=== PATIENT | female | born 1975 | race Caucasian/White ===

== ENCOUNTER 2023-02-11 11:32 | Observation (INO) | payer MEDICAID, SELFPAY ==
[2023-02-11] VITALS (21 sets, daily range): BP systolic 159–188; BP diastolic 85–101; PULSE 73–99; RESP 16–20; TEMP 36.1–36.8; O2SAT 96–100; BMI 42.1; BMI 49.4
--- NOTE | 2023-02-11 14:30 | ED.GENADULT ---
HPI - General Adult General Date Seen: 02/11/23 Chief complaint: Unspecified Complaint, Adult Stated complaint: Swollen feet, kidney issues Time Seen by Provider: 02/11/23 13:54 Source: patient and broomcorn press feeder Mode of arrival: ambulatory Limitations: language barrier History of Present Illness HPI narrative: Patient is a 47-year-old woman, Omani speaking, here for evaluation of poor kidney function. She has been seeing a doctor with [facility] for the past 1-2 months. She was started on medicine for blood pressure including losartan and amlodipine. She has been having some swelling in her feet and fatigue. She says she was called on after having labs checked a couple of weeks ago and told that she should go to an ER because her kidneys were not doing well and she needed to see a kidney specialist. Apparently she came in on Friday after having to work and Friday, she checked in in the ER but when she found out we did not have kidney specialists here she left. She came back today after somewhat explained to her how the ER process generally works. She also notes a red area on her left eye starting Friday or Friday. No pain or vision complaints. She denies a history of diabetes. She does not smoke. Does not sound like she had much medical care prior to the past couple of months. History is obtained with the assistance of an broomcorn press feeder. Related Data Home Medications Medication Instructions Recorded Confirmed amlodipine 10 mg tablet 10 mg PO DAILY 02/11/23 02/11/23 losartan 50 mg tablet 50 mg PO DAILY 02/11/23 02/11/23 Allergies Allergy/AdvReac Type Severity Reaction Status Date / Time No Known Drug Allergies Allergy Verified 02/11/23 12:01 Review of Systems Status of ROS: Reports: 10 or more systems reviewed and unremarkable except as noted in History and below PFSH PFS Social History What is your current living situation?: I presently have a place to live Problems where you live: no known problems Problems where you live details: none In the past 12 months, utilities in danger of being shut off: yes In past 12 months, lack of transportation kept you from medical appts, meetings, work, or getting things needed for daily living: no In the past 12 mos, have been you worried that your food would run out before you had money to buy more?: sometimes true In the past 12 mos, the food you bought just didn't last and you didn't have money to buy more?: sometimes true Highest level of school completed/degree received: 9th grade Smoking Status: Never smoker Do you use any of these nicotine containing products: None How often do you have a drink containing alcohol: never AUDIT-C Alcohol total score: 0 Non-prescribed substance use: denies use Caffeine: Yes (coffee) How often does anyone, including family, friends and others, physically hurt you: never How often does anyone, including family, friends and others, insult or talk down to you: never How often does anyone, including family, friends and others, threaten you with harm: never How often does anyone, including family, friends and others, scream or curse at you: never service: No Exam Narrative: Exam Narrative: Vital signs as noted above. In general, an alert, well-appearing patient. Head: Normocephalic, atraumatic. Eyes: Pupils are equal reactive. Extraocular movements are full. Subconjunctival hemorrhage noted on the left. ENT: Mucous membranes are moist. Neck: Supple without lymphadenopathy. Heart: Regular rate and rhythm. No murmur or rub. Lungs: Clear bilaterally. No increased work of breathing, crackles or wheezes. Abdomen: Soft and nontender. No organomegaly. Extremities: Well perfused. Trace edema in both shins and feet. No erythema or calf tenderness. Pulses intact. Neurologic: Patient is alert and oriented to person and place. Speech is fluent. Face is symmetric. Moves all extremities equally. Affect: Normal. Skin: Warm and dry. Well perfused. Const: Vital Signs, click to edit/add: Vital Signs - 24 hr 02/11/23 11:49 02/11/23 14:45 02/11/23 15:00 Temperature 97.4 F L Pulse Rate 73 76 Pulse Rate [Pulse Oximeter] 99 Respiratory Rate 18 Blood Pressure Blood Pressure [Ri ght Upper Arm] 166/94 H Pulse Oximetry 98 98 99 Oxygen Delivery Me thod Room Air 02/11/23 15:02 02/11/23 15:15 02/11/23 15:30 Temperature Pulse Rate 84 76 84 Pulse Rate [Pulse Oximeter] Respiratory Rate Blood Pressure 159/88 H Blood Pressure [Ri ght Upper Arm] Pulse Oximetry 98 97 96 Oxygen Delivery Me thod 02/11/23 15:31 02/11/23 15:45 02/11/23 16:20 Temperature Pulse Rate 86 81 89 Pulse Rate [Pulse Oximeter] Respiratory Rate Blood Pressure 165/98 H Blood Pressure [Ri ght Upper Arm] Pulse Oximetry 99 99 99 Oxygen Delivery Me thod 02/11/23 16:30 02/11/23 16:33 02/11/23 16:34 Temperature Pulse Rate 84 85 80 Pulse Rate [Pulse Oximeter] Respiratory Rate Blood Pressure 161/101 H Blood Pressure [Ri ght Upper Arm] Pulse Oximetry 99 99 99 Oxygen Delivery Me thod 02/11/23 16:45 02/11/23 17:00 02/11/23 17:02 Temperature Pulse Rate 82 89 87 Pulse Rate [Pulse Oximeter] Respiratory Rate Blood Pressure 167/85 H Blood Pressure [Ri ght Upper Arm] Pulse Oximetry 99 99 99 Oxygen Delivery Me thod 02/11/23 17:15 Temperature Pulse Rate 79 Pulse Rate [Pulse Oximeter] Respiratory Rate Blood Pressure Blood Pressure [Ri ght Upper Arm] Pulse Oximetry 98 Oxygen Delivery Me thod Documenting provider has reviewed patient's vital signs: yes Course Course ED Course: Patient presents with a history of renal insufficiency, told by primary care to go to ER so that she could see Nephrology. We of course do not have Nephrology here, I did recheck labs today, potassium came back at 5.2, creatinine is now 4, it was 3.7 on February 04. She is mildly acidotic with the CO2 of 16. BUN is also elevated at 55. BNP is unremarkable, glucose is 83. She is somewhat hypertensive on arrival with a blood pressure of 166/94, this was 161/101 when repeated, so does appear that her blood pressure is not well managed. I was able to talk with Dr. Glover, who was on-call for Nephrology at [facility]. He acknowledges that she has significant kidney disease, typically would arrange for outpatient follow-up but given that she does not have insurance and is likely undocumented, outpatient follow-up is not going to be an option. He therefore recommended that she be transferred to the [facility] system so that she can be seen by Nephrology for further testing and therapeutic recommendations. She is on the wait list at [facility], plan will be admission here overnight reassess tomorrow in terms of ability to transfer and results of further testing to include urine protein and creatinine, etcetera. Vital Signs Vital signs: Initial Vital Signs Temperature 97.4 F L 02/11/23 11:49 Temperature Source Temporal Artery Scan 02/11/23 11:49 Pulse Rate 99 02/11/23 11:49 Respiratory Rate 18 02/11/23 11:49 Blood Pressure 166/94 H 02/11/23 11:49 Blood Pressure Mean 118 H 02/11/23 11:49 Blood Pressure Position Sitting 02/11/23 11:49 Pulse Oximetry 98 02/11/23 11:49 Oxygen Delivery Method Room Air 02/11/23 11:49 Vital Signs Temperature 97.4 F L 02/11/23 11:49 Pulse Rate 99 02/11/23 11:49 Respiratory Rate 18 02/11/23 11:49 Blood Pressure 166/94 H 02/11/23 11:49 Pulse Oximetry 98 02/11/23 11:49 Oxygen Delivery Method Room Air 02/11/23 11:49 Temperature 97 F L 02/11/23 18:03 Pulse Rate 88 02/11/23 18:03 Respiratory Rate 18 02/11/23 18:03 Blood Pressure 188/96 H 02/11/23 18:03 Pulse Oximetry 99 02/11/23 18:03 Oxygen Delivery Method Room Air 02/11/23 18:03 Medications Administered Medications: Discontinued Medications Generic Name Dose Route Start Last Admin Trade Name Freq PRN Reason Stop Dose Admin Lactated Ringer's 1,000 mls @ 500 mls/hr 02/11/23 15:32 02/11/23 16:21 Lactated Ringers 1000 Ml IV 02/11/23 17:31 500 mls/hr .Q2H GARFIELD Administration Medical Decision Making Lab Data Labs: Lab Results 02/11/23 02/11/23 Range/Units 13:59 14:44 WBC 8.46 (4.50-11.00) K/uL RBC 3.20 L (4.00-5.20) m/uL Hgb 9.9 L (12.0-16.0) gm/dL Hct 28.8 L (33.0-51.0) % MCV 90 (80-100) fL MCH 31 (26-34) pg MCHC 34 (32-36) gm/dL RDW Coeff of William 12.9 (11.5-15.5) % Plt Count 195 (140-440) K/uL Neut % (Auto) 73.5 H (42.0-72.0) % Lymph % (Auto) 17.6 L (20-44) % [place] % (Auto) 6.1 (0.0-11.0) % Eos % (Auto) 2.1 (0.0-7.0) % Baso % (Auto) 0.2 (0.0-3.0) % Neut # (Auto) 6.20 (1.7-7.0) K/uL Lymph # (Auto) 1.50 (0.90-2.90) K/uL [place] # (Auto) 0.50 (0.00-0.90) K/UL Eos # (Auto) 0.18 (0.00-0.50) K/uL Baso # (Auto) 0.02 (0.00-0.30) K/uL Abs Immat Gran (auto) 0.04 (0.00-0.30) K/uL Imm/Tot Granulo (auto) 0.5 % Sodium 138 (135-149) mmol/L Potassium 5.2 H (3.6-5.1) mmol/L Chloride 112 (96-114) mmol/L Carbon Dioxide 16 L (20-32) mmol/L Anion Gap 10 (7-15) mEq/L BUN 55 H (5-24) mg/dL Creatinine 4.0 H (0.5-1.5) mg/dL Estimated Creat Clear 13.60 Estimated GFR 13 ml/min Glucose 83 (60-115) mg/dL Calcium 8.6 (8.4-10.6) mg/dL Magnesium 2.1 (1.5-2.6) mg/dL Total Bilirubin 0.2 (0.1-1.5) mg/dL Direct Bilirubin 0.0 (0.0-0.5) mg/dL AST 17 (12-35) U/L ALT 22 (4-35) U/L Alkaline Phosphatase 89 (40-150) U/L C-Reactive Protein 0.8 (0.5-1.0) mg/dL NT-Pro-B Natriuret Pep 415 pg/mL Total Protein 7.3 (6.0-8.3) g/dL Albumin 4.1 (3.3-5.0) g/dL Urine Color Yellow (Yellow) Urine Appearance Slightly Cloudy A (Clear) Urine pH 5.5 (5.0-8.5) Ur Specific [place] 1.020 (1.000-1.030) Urine Protein 3+ A (Negative) Urine Glucose (UA) Negative (Negative) Urine Ketones Negative (Negative) Urine Blood 1+ A (Negative) Urine Nitrite Negative (Negative) Urine Bilirubin Negative (Negative) Urine Urobilinogen 0.2 (0.2-1.0) Ur Leukocyte Esterase Negative (Negative) Urine RBC 0-2 (0-2) Urine WBC 0-2 (0-5) Urine WBC Clumps None (None) Ur Squamous Epith Cells Few (None-Few) Urine Bacteria None (None)
[2023-02-11 14:52] LABS: Basophils Absolute Auto 0.02 K/uL (0.00-0.30); Basophils Percent Auto 0.2 % (0.0-3.0); Eosinophils Absolute Auto 0.18 K/uL (0.00-0.50); Eosinophils Percent Auto 2.1 % (0.0-7.0); Hematocrit 28.8 % (33.0-51.0); Hemoglobin* 9.9 gm/dL (12.0-16.0); Immature Granulocytes Abs Auto 0.04 K/uL (0.00-0.30); Immature Granulocytes Pct Auto 0.5 %; Lymphocytes Percent Auto 17.6 % (20-44); Mean Corpuscular HGB Conc 34 gm/dL (32-36); Mean Corpuscular Hemoglobin 31 pg (26-34); Mean Corpuscular Volume 90 fL (80-100); Monocytes Percent Auto 6.1 % (0.0-11.0); Neutrophils Percent Auto 73.5 % (42.0-72.0); Platelet Count* 195 K/uL (140-440); RDW Coefficient of Variation % 12.9 % (11.5-15.5); White Blood Count* 8.46 K/uL (4.50-11.00)
[2023-02-11 15:00] LABS: Appearance Urine Slightly Cloudy (Clear); Bilirubin Urine Negative (Negative); Blood Urine 1+ (Negative); Color Urine Yellow (Yellow); Glucose Urine Negative (Negative); Ketones Urine Negative (Negative); Leukocyte Esterase Urine Negative (Negative); Nitrite Urine Negative (Negative); Protein Urine 3+ (Negative); Urobilinogen Urine 0.2 (0.2-1.0); pH Urine 5.5 (5.0-8.5)
[2023-02-11 15:03] LABS: Albumin* 4.1 g/dL (3.3-5.0); Chloride* 112 mmol/L (96-114)
[2023-02-11 15:04] LABS: Potassium* 5.2 mmol/L (3.6-5.1); Sodium* 138 mmol/L (135-149)
[2023-02-11 15:06] LABS: Estimated Glomerular Filt Rate 13 ml/min
[2023-02-11 15:07] LABS: Alanine Aminotransferase* 22 U/L (4-35); Alkaline Phosphatase* 89 U/L (40-150); Anion Gap 10 mEq/L (7-15); Aspartate Amino Transferase* 17 U/L (12-35); Bilirubin Total* 0.2 mg/dL (0.1-1.5); Blood Urea Nitrogen* 55 mg/dL (5-24); Calcium* 8.6 mg/dL (8.4-10.6); Carbon Dioxide* 16 mmol/L (20-32); Glucose* 83 mg/dL (60-115); Magnesium* 2.1 mg/dL (1.5-2.6); Total Protein* 7.3 g/dL (6.0-8.3)
[2023-02-11 15:09] LABS: C Reactive Protein* 0.8 mg/dL (0.5-1.0)
[2023-02-11 15:12] LABS: RBC Urine 0-2 (0-2); Squamous Epithelial Cell Urine Few (None-Few); WBC Urine 0-2 (0-5)
[2023-02-11 15:26] LABS: NT Pro B Type NatriureticPept* 415 pg/mL
[2023-02-11 15:28] LABS: Slide Review Reflex No
[2023-02-11] MEDS: LACTATED RINGERS 1000 ML 1,000 ML 500 ML IV (16:21)
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
--- NOTE | 2023-02-11 17:35 | ED.NURSE ---
Report called to M/S RN.
--- NOTE | 2023-02-11 19:13 | PC.NURSE ---
End of shift [id number]: Patient admitted to the unit at 1745 via wheelchair. Patient ambulatory, afebrile and VSS. Independent in her room. Denies having any pain or nausea currently. Patient is Swedish speaking but is able to comprehend basic Thai. Machine [employer]acker iPad utilized for admission. Patient was offered turkey sandwich and vegetable soup for dinner. PIV in left FA C/D/I and SL. Trace edema to right ankle and 1+ to left ankle. HRR and LS clear.
--- NOTE | 2023-02-11 19:34 | P.IMHP_ITS ---
Hospitalist- H&P: HPI History of Present Illness Date Seen: 02/11/23 Chief complaint: Swollen feet, kidney issues Narrative: Leny Torres is a 47 year old female past medical history significant for hypertension otherwise no previous diagnosed comorbidities, most recently followed by [facility], is admitted to the medical floor under observation for acute worsening renal failure. She is seen at bedside with assist of virtual cloth finishing range operator chief. Patient presented to the ED today after being advised to do so 1 week ago. She was told that her kidneys were failing and that she needed a kidney doctor so to go to the ER. 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 She tells me she has never been told that she has any kidney problems in the past. She has never been told that she is diabetic. She denies any other organ diseases. Currently, she denies dizziness. She has had some headaches which respond to Tylenol. Has been told to avoid NSAIDs and has followed through on that. Denies recent fevers chills or sweats. She denies chest pain or shortness of breath at rest. She admits to some dyspnea on exertion. She denies abdominal pain, nausea, vomiting or diarrhea. She denies any urinary retention. She states she urinates normally during the day and actually more frequently during the night. She has noticed that her left foot is more swollen than previously. Patient is a nonsmoker. Denies alcohol use. Review of Systems Narrative: REVIEW OF SYSTEMS: Complete review of systems performed and negative unless otherwise stated in HPI or below. [facility] Medical History Hypertension ?I10 - Essential (primary) hypertension (ICD-10) Social History What is your current living situation?: I presently have a place to live Problems where you live: no known problems Problems where you live details: none In the past 12 months, utilities in danger of being shut off: yes In past 12 months, lack of transportation kept you from medical appts, meetings, work, or getting things needed for daily living: no In the past 12 mos, have been you worried that your food would run out before you had money to buy more?: sometimes true In the past 12 mos, the food you bought just didn't last and you didn't have money to buy more?: sometimes true Highest level of school completed/degree received: 9th grade Smoking Status: Never smoker Do you use any of these nicotine containing products: None How often do you have a drink containing alcohol: never AUDIT-C Alcohol total score: 0 Non-prescribed substance use: denies use Caffeine: Yes (coffee) How often does anyone, including family, friends and others, physically hurt you : never How often does anyone, including family, friends and others, insult or talk down to you: never How often does anyone, including family, friends and others, threaten you with harm: never How often does anyone, including family, friends and others, scream or curse at you: never service: No Meds Home Medications and Allergies Home Medications Medication Instructions Recorded Confirmed Type amlodipine 10 mg tablet 10 mg PO DAILY 02/11/23 02/11/23 History losartan 50 mg tablet 50 mg PO DAILY 02/11/23 02/11/23 History Allergies Allergy/AdvReac Type Severity Reaction Status Date / Time No Known Drug Allergies Allergy Verified 02/11/23 12:01 Exam Narrative: Exam Narrative: PHYSICAL EXAM General: Pleasant, conversant, NAD HEENT: Normocephalic, atraumatic, sclera white, EOMI, oral mucosa moist Cardiovascular: RRR, S1S2. Left foot/ankle +1 pitting edema, right lower extremity trace edema Pulmonary: CTA bilaterally without rhonchi, rales, expiratory wheezes. No dyspnea Abdominal: Soft, nondistended, NTTP Neurological: Alert, answering questions appropriately, cranial nerves intact, no focal findings Extremities: No gross joint deformity or swelling. AROMI. Neurovascularly intact Skin: Warm, dry. Const: Vital Signs, click to edit/add: Vital Signs - 24 hr 02/11/23 11:49 02/11/23 14:45 02/11/23 15:00 Temperature 97.4 F L Pulse Rate 73 76 Pulse Rate [Pulse Oximeter] 99 Pulse Rate [Right Radial] Respiratory Rate 18 Blood Pressure Blood Pressure [Le ft Arm] Blood Pressure [Ri ght Arm] Blood Pressure [Ri ght Upper Arm] 166/94 H Pulse Oximetry 98 98 99 Oxygen Delivery Me thod Room Air 02/11/23 15:02 02/11/23 15:15 02/11/23 15:30 Temperature Pulse Rate 84 76 84 Pulse Rate [Pulse Oximeter] Pulse Rate [Right Radial] Respiratory Rate Blood Pressure 159/88 H Blood Pressure [Le ft Arm] Blood Pressure [Ri ght Arm] Blood Pressure [Ri ght Upper Arm] Pulse Oximetry 98 97 96 Oxygen Delivery Me thod 02/11/23 15:31 02/11/23 15:45 02/11/23 16:20 Temperature Pulse Rate 86 81 89 Pulse Rate [Pulse Oximeter] Pulse Rate [Right Radial] Respiratory Rate Blood Pressure 165/98 H Blood Pressure [Le ft Arm] Blood Pressure [Ri ght Arm] Blood Pressure [Ri ght Upper Arm] Pulse Oximetry 99 99 99 Oxygen Delivery Me thod 02/11/23 16:30 02/11/23 16:33 02/11/23 16:34 Temperature Pulse Rate 84 85 80 Pulse Rate [Pulse Oximeter] Pulse Rate [Right Radial] Respiratory Rate Blood Pressure 161/101 H Blood Pressure [Le ft Arm] Blood Pressure [Ri ght Arm] Blood Pressure [Ri ght Upper Arm] Pulse Oximetry 99 99 99 Oxygen Delivery Me thod 02/11/23 16:45 02/11/23 17:00 02/11/23 17:02 Temperature Pulse Rate 82 89 87 Pulse Rate [Pulse Oximeter] Pulse Rate [Right Radial] Respiratory Rate Blood Pressure 167/85 H Blood Pressure [Le ft Arm] Blood Pressure [Ri ght Arm] Blood Pressure [Ri ght Upper Arm] Pulse Oximetry 99 99 99 Oxygen Delivery Me thod 02/11/23 17:15 02/11/23 17:58 02/11/23 17:58 Temperature Pulse Rate 79 Pulse Rate [Pulse Oximeter] 88 Pulse Rate [Right Radial] Respiratory Rate 18 18 Blood Pressure Blood Pressure [Le ft Arm] 188/96 H Blood Pressure [Ri ght Arm] Blood Pressure [Ri ght Upper Arm] Pulse Oximetry 98 99 99 Oxygen Delivery Me thod Room Air Room Air 02/11/23 17:58 02/11/23 18:03 02/11/23 18:03 Temperature 98.2 F 97 F L Pulse Rate Pulse Rate [Pulse Oximeter] 88 Pulse Rate [Right Radial] 82 Respiratory Rate 20 18 Blood Pressure Blood Pressure [Le ft Arm] 188/96 H Blood Pressure [Ri ght Arm] 175/86 H 186/94 H Blood Pressure [Ri ght Upper Arm] Pulse Oximetry 100 99 99 Oxygen Delivery Me thod Room Air Room Air Room Air Hospitalist - H&P: Result Labs Labs: Short CBC 02/11/23 Range/Units 14:44 WBC 8.46 (4.50-11.00) K/uL Hgb 9.9 L (12.0-16.0) gm/dL Hct 28.8 L (33.0-51.0) % Plt Count 195 (140-440) K/uL BMP 02/11/23 14:44 Sodium 138 Potassium 5.2 H Chloride 112 Carbon Dioxide 16 L BUN 55 H Creatinine 4.0 H Glucose 83 Calcium 8.6 Liver Function 02/11/23 Range/Units 14:44 Total Bilirubin 0.2 (0.1-1.5) mg/dL Direct Bilirubin 0.0 (0.0-0.5) mg/dL AST 17 (12-35) U/L ALT 22 (4-35) U/L Alkaline Phosphatase 89 (40-150) U/L Albumin 4.1 (3.3-5.0) g/dL Urine 02/11/23 Range/Units 13:59 Urine Color Yellow (Yellow) Urine Appearance Slightly Cloudy A (Clear) Urine pH 5.5 (5.0-8.5) Ur Specific [place] 1.020 (1.000-1.030) Urine Protein 3+ A (Negative) Urine Glucose (UA) Negative (Negative) ECG Attestation: I personally reviewed and interpreted this ECG as follows: Interpretation: NSR, rate 88, no significant peak QRS waves Assessment and Plan Assessment and plan (1) Renal failure: Problem comment: -with metabolic acidosis, hyperkalemia -LLE pitting edema > RLE, reported mild BREWTSER -potassium 5.2 (previously 4.2) -carbon dioxide 16 (22 in April) -creatinine 4.0 (2.0 in April), estimated GFR 13, estimated creatinine clearance 13.6 -urine creatinine pending -received 500 mL LR in ED -renal diet -repeat CBC, BMP, add phosphorus, A1c (previously 5.4) in a.m. [facility], Dr. Veliz: Stop losartan, no longer to be treated with an ACEI or ARB. Continue amlodipine with SBP goal of 130-170. Advises not to aggressively treat acidosis unless significantly fluid overloaded, recommending sodium bicarbonate 325 mg p.o. b.i.d. to start. Recommends ultra conservative loop diuretic management with furosemide 20 mg daily. Recommends outpatient Nephrology follow-up at [facility] clinic. Status: Acute (2) Hyperkalemia: Problem comment: -in setting of acute worsening renal failure -5.2 (previously 4.2 in April, most recently 4.9 one week ago) -received 500 mL LR in ED -furosemide daily -sodium 138, magnesium 2.1, phosphorus ordered -continue to monitor Status: Acute (3) Hypertension: Problem comment: per [facility] Nephrology, Dr. Veliz -Continue amlodipine 10 mg daily, goal SBP 130-170 -Discontinue losartan, should no longer be treated with an ACEI or ARB Status: Chronic Plan CODE: Full VTE PPX: Enoxaparin Disposition: Observation
[2023-02-11] MEDS: SODIUM BICARBONATE 650 MG TABLET 325 MG PO (21:09)
[2023-02-11] MEDS: SODIUM CHLORIDE 0.9 % (FLUSH) 10 ML SYRINGE 5 ML IVF (21:11)
[2023-02-11 21:13] LABS: Creatinine Urine Random 65 mg/dL
[2023-02-11 22:47] LABS: Phosphorus* 5.1 mg/dL (2.5-4.5)
[2023-02-12 06:12] LABS: Hematocrit 26.6 % (33.0-51.0); Hemoglobin* 9.1 gm/dL (12.0-16.0); Mean Corpuscular HGB Conc 34 gm/dL (32-36); Mean Corpuscular Hemoglobin 31 pg (26-34); Mean Corpuscular Volume 91 fL (80-100); Platelet Count* 177 K/uL (140-440); Red Blood Count 2.94 m/uL (4.00-5.20); White Blood Count* 7.39 K/uL (4.50-11.00)
[2023-02-12 06:17] LABS: Slide Review Reflex No
[2023-02-12 06:23] LABS: Chloride* 112 mmol/L (96-114); Potassium* 5.1 mmol/L (3.6-5.1); Sodium* 136 mmol/L (135-149)
[2023-02-12 06:25] LABS: Creatinine* 3.6 mg/dL (0.5-1.5); Est. Creatinine Clearance* 15.81; Estimated Glomerular Filt Rate 15 ml/min
[2023-02-12 06:26] LABS: Anion Gap 9 mEq/L (7-15); Blood Urea Nitrogen* 50 mg/dL (5-24); Calcium* 8.5 mg/dL (8.4-10.6); Carbon Dioxide* 15 mmol/L (20-32); Glucose* 87 mg/dL (60-115); Phosphorus* 5.8 mg/dL (2.5-4.5)
--- NOTE | 2023-02-12 06:52 | PC.NURSE ---
End of Shift [id number] ? Pt alert, oriented, cooperative. Light Rail Signal Technician on iPad used for communication. Pt denied pain, nausea, SOB. Pt asked if she could discharge from hospital on the evening of 02/11, RN explained discharge plan. Pt up independent in room, continent of bladder, and uses call light appropriately. Trace edema noted in bilateral LE. Family at bedside. Tolerating RA, regular diet, fluids. Pt observed to sleep, appears to be resting comfortably at end of shift. ?
[2023-02-12 06:57] LABS: Hemoglobin A1C* 5.1 % (0-5.6)
[2023-02-12 07:00] VITALS: PULSE 80; RESP 18
[2023-02-12] MEDS: ACETAMINOPHEN 325 MG TABLET PO (07:39)
[2023-02-12 07:42] VITALS: BP 178/99; PULSE 80; RESP 18; TEMP 36.3; O2SAT 98
[2023-02-12] MEDS: TORSEMIDE 5 MG TABLET 10 MG PO (08:28)
[2023-02-12] MEDS: AMLODIPINE 10 MG TABLET PO (08:29)
[2023-02-12] MEDS: SODIUM BICARBONATE 650 MG TABLET 325 MG PO (08:29)
[2023-02-12] MEDS: SODIUM CHLORIDE 0.9 % (FLUSH) 10 ML SYRINGE 5 ML IVF (08:31)
[2023-02-12] MEDS: CALCIUM ACETATE 667 MG CAPSULE PO (09:05)
[2023-02-12] MEDS: ENOXAPARIN 30 MG/0.3ML INJ SUBCUT (10:56)
[2023-02-12 11:40] VITALS: PULSE 78
--- NOTE | 2023-02-12 13:11 | PM.DS1 ---
DS: Providers Provider Date Seen: 02/12/23 Date of admission: 02/11/23 17:34 Primary care physician: Yury Hathaway MD Admitting Clinician: Elicia Lainez MD Attending Physician on discharge: Vitaly Horta MD Date of Discharge: 02/12/23 DS: Diagnosis Discharge Diagnosis (1) Stage 5 chronic kidney disease: Status: Acute Problem details: Creatinine of 4.0 with corresponding creatinine clearance of 13.6. Four years ago creatinine was 0.8. She had normal kidney ultrasound 01/20/2023 showing no obstruction. (2) Hypertension: Status: Chronic Problem details: per [facility] Nephrology, Dr. Veliz -Continue amlodipine 10 mg daily, goal SBP 130-170 -Discontinue losartan, should no longer be treated with an ACEI or ARB (3) Hepatic steatosis: Status: Acute Problem details: Seen on abdominal CT April 2022. (4) Morbid obesity with BMI of 40.0-44.9, adult: Status: Acute Problem details: January 2023 BMI 42.3 DS: Summary Hospital Course Hospital Course: 47-year-old female admitted to the hospital with progressive chronic kidney disease. Patient has been followed outpatient at [facility] clinic. Renal function is been getting worse and they referred her to the emergency room for Nephrology consultation. Patient is unaware of any symptoms of renal failure except she reports that she has had some occasional episodes of leg edema. She is unaware of any history of kidney disease. She does have fairly severe hypertension. She has been on amlodipine 10 mg daily and losartan 50 mg daily for this. Her creatinine has been rising substantially in the last year going from creatinine of 2.0 in April 2 4.0 in January.. She is now stage 5 kidney disease with a creatinine clearance of 13.6. She has been unable to arrange outpatient Nephrology follow-up. Evaluation for this includes an ultrasound of her kidneys which showed no obstruction on 01/20/2023. Urinalysis is unremarkable with benign urine sediment. She has a micro albumin/creatinine ratio of 6670 (normal 0-30). She has a metabolic acidosis with her carbon dioxide at 16 and hyperphosphatemia with a phosphorus of 5.8.. She has a hemoglobin of 9.9 with other normal red cell indices, white count and platelets. She was observed overnight in the hospital. Her potassium went from 5.2-5.1 and her creatinine went from 4.0-3.6. These changes without specific intervention other than 1 L of IV fluids. Status at Discharge Functional status at discharge: independent ambulation Overall status at discharge: patient is back to baseline Time Spent with Patient Time attestation: Total time spent providing and/or coordinating discharge services: Time spent: Greater than 30 minutes Exam Narrative: Exam Narrative: She is alert and appears in no distress. Communication is through our [place] medical legal investigator. She is pleasant and cooperative. Oropharynx with small airway. Respirations are clear to auscultation. Cardiovascular: S1, S2, regular rate and rhythm. Abdomen is soft without tenderness. Extremities without edema. Const: Vital Signs, click to edit/add: Vital Signs - 24 hr 02/11/23 14:45 02/11/23 15:00 02/11/23 15:02 Temperature Pulse Rate 73 76 84 Pulse Rate [Pulse Oximeter] Pulse Rate [Right Radial] Respiratory Rate Blood Pressure 159/88 H Blood Pressure [Le ft Arm] Blood Pressure [Ri ght Arm] Pulse Oximetry 98 99 98 Oxygen Delivery Me thod 02/11/23 15:15 02/11/23 15:30 02/11/23 15:31 Temperature Pulse Rate 76 84 86 Pulse Rate [Pulse Oximeter] Pulse Rate [Right Radial] Respiratory Rate Blood Pressure 165/98 H Blood Pressure [Le ft Arm] Blood Pressure [Ri ght Arm] Pulse Oximetry 97 96 99 Oxygen Delivery Me thod 02/11/23 15:45 02/11/23 16:20 02/11/23 16:30 Temperature Pulse Rate 81 89 84 Pulse Rate [Pulse Oximeter] Pulse Rate [Right Radial] Respiratory Rate Blood Pressure Blood Pressure [Le ft Arm] Blood Pressure [Ri ght Arm] Pulse Oximetry 99 99 99 Oxygen Delivery Me thod 02/11/23 16:33 02/11/23 16:34 02/11/23 16:45 Temperature Pulse Rate 85 80 82 Pulse Rate [Pulse Oximeter] Pulse Rate [Right Radial] Respiratory Rate Blood Pressure 161/101 H Blood Pressure [Le ft Arm] Blood Pressure [Ri ght Arm] Pulse Oximetry 99 99 99 Oxygen Delivery Me thod 02/11/23 17:00 02/11/23 17:02 02/11/23 17:15 Temperature Pulse Rate 89 87 79 Pulse Rate [Pulse Oximeter] Pulse Rate [Right Radial] Respiratory Rate Blood Pressure 167/85 H Blood Pressure [Le ft Arm] Blood Pressure [Ri ght Arm] Pulse Oximetry 99 99 98 Oxygen Delivery Me thod 02/11/23 17:58 02/11/23 17:58 02/11/23 17:58 Temperature 98.2 F Pulse Rate Pulse Rate [Pulse Oximeter] 88 Pulse Rate [Right Radial] 82 Respiratory Rate 18 18 20 Blood Pressure Blood Pressure [Le ft Arm] 188/96 H Blood Pressure [Ri ght Arm] 175/86 H Pulse Oximetry 99 99 100 Oxygen Delivery Me thod Room Air Room Air Room Air 02/11/23 18:03 02/11/23 18:03 02/11/23 19:43 Temperature 97 F L Pulse Rate 85 Pulse Rate [Pulse Oximeter] 88 Pulse Rate [Right Radial] Respiratory Rate 18 Blood Pressure Blood Pressure [Le ft Arm] 188/96 H Blood Pressure [Ri ght Arm] 186/94 H Pulse Oximetry 99 99 Oxygen Delivery Me thod Room Air Room Air 02/11/23 21:00 02/11/23 23:00 02/12/23 07:00 Temperature 97.6 F 97.8 F Pulse Rate Pulse Rate [Pulse Oximeter] 83 81 80 Pulse Rate [Right Radial] Respiratory Rate 16 20 18 Blood Pressure Blood Pressure [Le ft Arm] Blood Pressure [Ri ght Arm] 182/95 H 177/86 H Pulse Oximetry 100 100 Oxygen Delivery Me thod Room Air Room Air 02/12/23 07:42 02/12/23 11:40 Temperature 97.4 F L Pulse Rate 78 Pulse Rate [Pulse Oximeter] 80 Pulse Rate [Right Radial] Respiratory Rate 18 Blood Pressure Blood Pressure [Le ft Arm] Blood Pressure [Ri ght Arm] 178/99 H Pulse Oximetry 98 Oxygen Delivery Me thod Room Air Documenting provider has reviewed patient's vital signs: yes DS: Data Data Completed and Pending Labs on day of discharge: Labs from last 24 hours 02/12/23 02/11/23 02/11/23 05:51 21:21 17:22 WBC 7.39 RBC 2.94 L Hgb 9.1 L Hct 26.6 L MCV 91 MCH 31 MCHC 34 RDW Coeff of William Plt Count 177 Neut % (Auto) Lymph % (Auto) [place] % (Auto) Eos % (Auto) Baso % (Auto) Neut # (Auto) Lymph # (Auto) [place] # (Auto) Eos # (Auto) Baso # (Auto) Abs Immat Gran (auto) Imm/Tot Granulo (auto) Sodium 136 Potassium 5.1 Chloride 112 Carbon Dioxide 15 L Anion Gap 9 BUN 50 H Creatinine 3.6 H Estimated Creat Clear 15.81 Estimated GFR 15 Glucose 87 Hemoglobin A1c 5.1 Calcium 8.5 Phosphorus 5.8 H Magnesium Total Bilirubin Direct Bilirubin AST ALT Alkaline Phosphatase C-Reactive Protein NT-Pro-B Natriuret Pep Total Protein Albumin Urine Color Urine Appearance Urine pH Ur Specific [place] Urine Protein Urine Glucose (UA) Urine Ketones Urine Blood Urine Nitrite Urine Bilirubin Urine Urobilinogen Ur Leukocyte Esterase Urine RBC Urine WBC Urine WBC Clumps Ur Squamous Epith Cells Urine Bacteria Ur Random Creatinine 65 Lab Acknowledgement Test Added 02/11/23 02/11/23 14:44 13:59 WBC 8.46 RBC 3.20 L Hgb 9.9 L Hct 28.8 L MCV 90 MCH 31 MCHC 34 RDW Coeff of [place] 12.9 Plt Count 195 Neut % (Auto) 73.5 H Lymph % (Auto) 17.6 L [place] % (Auto) 6.1 Eos % (Auto) 2.1 Baso % (Auto) 0.2 Neut # (Auto) 6.20 Lymph # (Auto) 1.50 [place] # (Auto) 0.50 Eos # (Auto) 0.18 Baso # (Auto) 0.02 Abs Immat Gran (auto) 0.04 Imm/Tot Granulo (auto) 0.5 Sodium 138 Potassium 5.2 H Chloride 112 Carbon Dioxide 16 L Anion Gap 10 BUN 55 H Creatinine 4.0 H Estimated Creat Clear 13.60 Estimated GFR 13 Glucose 83 Hemoglobin A1c Calcium 8.6 Phosphorus 5.1 H Magnesium 2.1 Total Bilirubin 0.2 Direct Bilirubin 0.0 AST 17 ALT 22 Alkaline Phosphatase 89 C-Reactive Protein 0.8 NT-Pro-B Natriuret Pep 415 Total Protein 7.3 Albumin 4.1 Urine Color Yellow Urine Appearance Slightly Cloudy A Urine pH 5.5 Ur Specific [place] 1.020 Urine Protein 3+ A Urine Glucose (UA) Negative Urine Ketones Negative Urine Blood 1+ A Urine Nitrite Negative Urine Bilirubin Negative Urine Urobilinogen 0.2 Ur Leukocyte Esterase Negative Urine RBC 0-2 Urine WBC 0-2 Urine WBC Clumps None Ur Squamous Epith Cells Few Urine Bacteria None Ur Random Creatinine Lab Acknowledgement Discharge Plan Discharge Disposition: Home, Self-Care Date of Admission: 02/11/23 17:34 Attending Provider on Discharge: Ron Horta Primary Care Provider: Yury Hathaway Condition: Stable Anticipated Discharge Date/Time: 02/12/23 11:18 Discharge Medications: New sodium bicarbonate 650 mg Tablet 650 mg PO DAILY Qty: 100 0RF calcium acetate(phosphat bind) 667 mg Capsule 667 mg PO DAILY Qty: 100 0RF torsemide 20 mg tablet 20 mg PO DAILY Qty: 30 2RF Continued amlodipine 10 mg tablet 10 mg PO DAILY Discontinued losartan 50 mg tablet 50 mg PO DAILY Discharge Orders: Discharge Order (Routine); Ordered 02/12/23 Ordered By: Ron Horta Patient Education: Torsemide (By mouth), Calcium Acetate (By mouth), Sodium Bicarbonate (By mouth), Acute Kidney Injury (DC) Additional Instructions: Please make an appointment at [facility] next week to recheck your blood pressure and lab test: Basic metabolic panel and phosphorus. Call [facility] [phone] to make an appointment with a doctor to help manage your kidney disease Activity Level: Activity as Tolerated Discharge Diet: Heart Healthy (2 gm sodium, low fat) Follow Up Appointments: [facility] [Other] (They should be contacting you for an appointment. If you don't hear from them by Friday call them.) Carrington Miramontes MD [Referring] - (Follow-up next week) Yury Hathaway MD [Primary Care Provider] - Forms: [employer] Info Instructions
--- NOTE | 2023-02-12 13:23 | PC.NURSE ---
Pt discharged at 1312 today. Shower was completed before discharge and another RN removed IV to L forearm prior to discharge. Pt had no c/o pain, shortness of breath or numbness/tingling prior to discharge.
--- NOTE | 2023-02-12 13:30 | PC.SOCIAL ---
Bulb Assembler Consult: Met with pt today and provided resources for MNSure, food assistance and financial assistance. explosives worker referred pt to [employer] [facility] [place] for MNSure Navigation, food support and rental assistance. Pt stated that she already applied for Medical Assistance and was unsure what the status was of her application. [facility] should be able to assist her with looking that up due to having a MNSure Navigator on staff. [facility] should also be able to assist her with resources for food support and financial/rental assistance. Social work to follow-up as needed.
--- NOTE | 2023-02-24 12:09 | PC.NURSE ---
Daughter Elly called requesting a referral for her mother to be seen at [facility] for her kidney disease. Asked if they had been seen at [facility] since they left here and daughter states No. Her mother's phone is not currently working at te moment. Dr. Horta will be in at 2 pm will check with him regarding referral.
== END 2023-02-12 13:12 | disposition home or self-care (01) ==
LOC: ED 14:22 → MEDSURG 17:35
PROVIDERS: Family Medicine; Admitting Provider Family Medicine; Emergency Provider Emergency Medicine; PCP Family Medicine; Visit Provider Physician Assistant
DX: N18.5 Chronic kidney disease, stage 5 (principal); E87.20 Acidosis, unspecified; E87.5 Hyperkalemia; I12.0 Hypertensive chronic kidney disease with stage 5 chronic kidney disease or end stage renal disease; K76.0 Fatty (change of) liver, not elsewhere classified; E66.01 Morbid (severe) obesity due to excess calories; Z68.41 Body mass index [BMI] 40.0-44.9, adult; Z87.448 Personal history of other diseases of urinary system; R79.89 Other specified abnormal findings of blood chemistry; R06.09 Other forms of dyspnea
CPT/HCPCS: 36415; 80048; 80076; 81001; 82570; 83036; 83735; 83880; 84100; 85025; 85027; 86140; 93005; 96360; 96361; 96372; 99284; 99285; G0378; A9270; J1650; J7120

== ENCOUNTER 2023-05-13 15:54 | Outpatient (CLI) | payer MEDICAID, SELFPAY | END 2023-05-13 15:55 | disposition home or self-care (01) | LOC: NFLDREF 05-14 05:48 | PROVIDERS: PCP Internal Medicine; Referring Provider Internal Medicine; Visit Provider Internal Medicine Nephrology | DX: N18.5 Chronic kidney disease, stage 5 (principal) | CPT/HCPCS: 80069; 82728; 83540; 83550 ==

== ENCOUNTER 2023-07-07 16:32 | Outpatient (CLI) | payer MEDICAID, SELFPAY | END 2023-07-07 16:33 | disposition home or self-care (01) | LOC: NFLDREF 07-25 06:34 | PROVIDERS: PCP Internal Medicine; Referring Provider Internal Medicine; Visit Provider Internal Medicine Nephrology | DX: N18.5 Chronic kidney disease, stage 5 (principal) | CPT/HCPCS: 80069; 82728; 83540; 83550; 87086 ==

== ENCOUNTER 2023-07-09 17:00 | Outpatient (CLI) | payer MEDICAID, SELFPAY | END 2023-07-09 17:01 | disposition home or self-care (01) | LOC: NFLDREF 07-29 09:45 | PROVIDERS: PCP Internal Medicine; Referring Provider Internal Medicine; Visit Provider Internal Medicine Nephrology | DX: N18.5 Chronic kidney disease, stage 5 (principal); N02.B9 Other recurrent and persistent immunoglobulin A nephropathy | CPT/HCPCS: 86480; 86706; 86803; 87340 ==

== ENCOUNTER 2023-08-28 15:33 | Outpatient (CLI) | payer MEDICAID, SELFPAY | END 2023-08-28 15:34 | disposition home or self-care (01) | LOC: NFLDREF 08-29 00:08 | PROVIDERS: PCP Internal Medicine; Referring Provider Internal Medicine; Visit Provider Nurse Practitioner Family | DX: R30.0 Dysuria (principal); N30.90 Cystitis, unspecified without hematuria | CPT/HCPCS: 87086; 87186 ==

== ENCOUNTER 2023-11-06 20:29 | Emergency (ER) | payer MEDICAID, SELFPAY ==
[2023-11-06 20:37] VITALS: BP 133/87; PULSE 142; RESP 28; TEMP 40.3; O2SAT 93; BMI 44.9
--- NOTE | 2023-11-06 20:59 | ED_ITS ---
HPI - Fever General Chief Complaint: Fever Stated Complaint: fever Time Seen by Provider: 11/06/23 20:55 History of Present Illness HPI Narrative: Patient is a 47-year-old dialysis patient who comes in tonight with fever of 104. She has been feeling poorly for last 24 hours. Her dialysis run yesterday when fine approximately 6 hours before the onset of fever. Patient has no localizing symptoms. She is dialyzed through a port in the right anterior chest which has not shown any signs of redness. She has had no headache no change in her vision no neurologic symptoms no stiff neck no nausea no vomiting. She has no dysuria or cough. Related Data Home Medications ?Medication ?Instructions ?Recorded ?Confirmed carvedilol 12.5 mg tablet 12.5 mg PO BID 08/28/23 11/06/23 amlodipine 5 mg tablet 5 mg PO DAILY 11/06/23 11/06/23 clobetasol 0.05 % topical cream topical PRN 11/06/23 11/06/23 vitamin B complex-vitamin C-folic 1 tab PO DAILY 11/06/23 11/06/23 acid 0.8 mg tablet (Celine-Wally) Allergies Allergy/AdvReac Type Severity Reaction Status Date / Time No Known Drug Allergies Allergy Verified 11/06/23 20:36 Review of Systems Status of ROS Reports: 10 or more systems reviewed and unremarkable except as noted in History and below PFSH [facility] Surgical History History of umbilical hernia repair (09/26/03) ?Z98.890 - Other specified postprocedural states (ICD-10) ?Z87.19 - Personal history of other diseases of the digestive system (ICD-10) History of tubal ligation (~2002) ?Z98.51 - Tubal ligation status (ICD-10) History of cholecystectomy (04/19/10) ?Z90.49 - Acquired absence of other specified parts of digestive tract (ICD- 10) Family History Mother Stroke Diabetes Myocardial infarction, Onset Age: 55 Father Diabetes Brain tumor Brother Diabetes High blood pressure Sister Diabetes High blood pressure Social History What is your current living situation?: I presently have a place to live Problems where you live: declined to answer Problems where you live details: none In the past 12 months, utilities in danger of being shut off: yes In past 12 months, lack of transportation kept you from medical appts, meetings, work, or getting things needed for daily living: no In the past 12 mos, have been you worried that your food would run out before you had money to buy more?: sometimes true In the past 12 mos, the food you bought just didn't last and you didn't have money to buy more?: sometimes true Highest level of school completed/degree received: 9th grade Smoking Status: Never smoker Do you use any of these nicotine containing products: None How often do you have a drink containing alcohol: never AUDIT-C Alcohol total score: 0 Non-prescribed substance use: denies use Caffeine: Yes (coffee) How often does anyone, including family, friends and others, physically hurt you : never How often does anyone, including family, friends and others, insult or talk down to you: never How often does anyone, including family, friends and others, threaten you with harm: never How often does anyone, including family, friends and others, scream or curse at you: never Little interest or pleasure in doing things: nearly every day Feeling down, depressed, or hopeless: more than half the days service: No Exam Narrative Exam Narrative: EXAM GENERAL: Patient appears comfortable but febrile. EYES: No scleral icterus. LYMPH: No supraclavicular or cervical lymphadenopathy. SKIN: Visible skin seen during exam normal or with benign process only. EXT: No dependent lower extremity pedal edema. HEART: Regular rate and rhythm with no murmurs, rubs, or gallops. LUNGS: Clear to auscultation bilaterally with no crackles or wheezes. ABD: Soft, non tender, non distended. PSYCH: Good eye contact, speech is not pressured. Port noted in the right anterior chest. Neurologic exam unremarkable. Const Vital Signs, click to edit/add: Vital Signs - 24 hr 11/06/23 20:37 11/06/23 22:08 11/06/23 22:15 Temperature 104.5 F H Pulse Rate 119 H 121 H Pulse Rate [Pulse Oximeter] 142 H Respiratory Rate 28 H Blood Pressure [Right Upper Arm] 133/87 Pulse Oximetry 93 95 94 Oxygen Delivery Method Room Air 11/06/23 22:28 Temperature 100.0 F H Pulse Rate Pulse Rate [Pulse Oximeter] Respiratory Rate Blood Pressure [Right Upper Arm] Pulse Oximetry Oxygen Delivery Method Course Course ED Course: Patient seen and examined. Blood cultures COVID testing influence RSV testing pending. CBC comprehensive metabolic panel blood cultures x1 UA chest x-ray pending. Vital Signs Vital signs: Initial Vital Signs Temperature 104.5 F H 11/06/23 20:37 Temperature Source Temporal Artery Scan 11/06/23 20:37 Pulse Rate 142 H 11/06/23 20:37 Respiratory Rate 28 H 11/06/23 20:37 Blood Pressure 133/87 11/06/23 20:37 Blood Pressure Mean 102 11/06/23 20:37 Blood Pressure Position Sitting 11/06/23 20:37 Pulse Oximetry 93 11/06/23 20:37 Oxygen Delivery Method Room Air 11/06/23 20:37 Vital Signs Temperature 104.5 F H 11/06/23 20:37 Pulse Rate 142 H 11/06/23 20:37 Respiratory Rate 28 H 11/06/23 20:37 Blood Pressure 133/87 11/06/23 20:37 Pulse Oximetry 93 11/06/23 20:37 Oxygen Delivery Method Room Air 11/06/23 20:37 Temperature 100.0 F H 11/06/23 22:28 Pulse Rate 121 H 11/06/23 22:15 Respiratory Rate 28 H 11/06/23 20:37 Blood Pressure 133/87 11/06/23 20:37 Pulse Oximetry 94 11/06/23 22:15 Oxygen Delivery Method Room Air 11/06/23 20:37 Medications Administered Medications: Discontinued Medications Generic Name Dose Route Start Last Admin Trade Name Freq PRN Reason Stop Dose Admin Acetaminophen 1,000 mg 11/06/23 20:58 11/06/23 21:07 Acetaminophen 500 Mg Tablet PO 11/06/23 20:59 1,000 mg ONCE ONE Administration Sodium Chloride 1,000 mls @ 1,000 mls/hr 11/06/23 20:59 11/06/23 22:08 0.9 % Sodium Chloride 1000 Ml IV 11/06/23 21:58 Infused .Q1H [facility] Infusion MDM - Fever MDM Narrative Medical decision making narrative: Patient is 47-year-old woman who presents with a impressive fever of 104. She is a dialysis patient. We did give her g Tylenol on her fever went away completely. She has no localizing symptoms and now feels much better. She has received 2 L of normal saline. She has no redness at her catheter site although her blood has been cultured. Her urine shows findings consistent with a dialysis patient but no other significant abnormalities that would require in tervention. Chest x-ray is unremarkable and viral swabs are negative. At this time I did consider broad differential diagnosis including but not limited to sepsis viral syndrome port infection urinary tract infection pneumonia. She is feeling much better and her fever is down. We will again culture her blood. Her vital signs are normalizing and I do not believe that they are typically very normal given her status is a dialysis patient. They do understand the risk of going home which is their preference. I did explain that we do not see a source of infection but I do wish them to for Pap close follow-up. We did repeatedly examine her N/C no localization. She does have dialysis tomorrow will keep that appointment. They can certainly take Tylenol for fever. Lab Data Labs: Lab Results 11/06/23 11/06/23 11/06/23 Range/Units 20:55 21:02 21:02 WBC 18.31 H (4.50-11.00) K/uL RBC 3.83 L (4.00-5.20) m/uL Hgb 12.3 (12.0-16.0) gm/dL Hct 35.9 (33.0-51.0) % MCV 94 (80-100) fL MCH 32 (26-34) pg MCHC 34 (32-36) gm/dL RDW Coeff of William 14.5 (11.5-15.5) % Plt Count 153 (140-440) K/uL Neut % (Auto) 93.3 H (42.0-72.0) % Lymph % (Auto) 3.3 L (20-44) % Lasalle % (Auto) 2.6 (0.0-11.0) % Eos % (Auto) 0.4 (0.0-7.0) % Baso % (Auto) 0.1 (0.0-3.0) % Neut # (Auto) 17.10 H (1.7-7.0) K/uL Lymph # (Auto) 0.60 L (0.90-2.90) K/uL Lasalle # (Auto) 0.50 (0.00-0.90) K/UL Eos # (Auto) 0.10 (0.00-0.50) K/uL Baso # (Auto) 0.00 (0.00-0.30) K/uL Abs Immat Gran (auto) 0.10 (0.00-0.30) K/uL Imm/Tot Granulo (auto) 0.3 % Sodium 131 L (135-149) mmol/L Potassium 4.1 (3.6-5.1) mmol/L Chloride 96 (96-114) mmol/L Carbon Dioxide 18 L (20-32) mmol/L Anion Gap 17 H (7-15) mEq/L BUN 58 H (5-24) mg/dL Creatinine 7.1 H (0.5-1.5) mg/dL Estimated Creat Clear 6.96 Estimated GFR 7 ml/min Glucose 154 H (60-115) mg/dL Lactate 2.4 H (0.5-1.9) mmol/L Calcium 8.3 L (8.4-10.6) mg/dL Phosphorus 4.0 (2.5-4.5) mg/dL Total Bilirubin 1.8 H (0.1-1.5) mg/dL AST 286 H (12-35) U/L ALT 30 (4-35) U/L Alkaline Phosphatase 323 H (40-150) U/L C-Reactive Protein < 0.5 L Cancelled (0.5-1.0) mg/dL Total Protein 8.8 H (6.0-8.3) g/dL Albumin 5.0 (3.3-5.0) g/dL Procalcitonin 0.95 H (<0.50) ng/mL Urine Color (Yellow) Urine Appearance (Clear) Urine pH (5.0-8.5) Ur Specific Pal[place]ade (1.000-1.030) Urine Protein (Negative) Urine Glucose (UA) (Negative) Urine Ketones (Negative) Urine Blood (Negative) Urine Nitrite (Negative) Urine Bilirubin (Negative) Urine Urobilinogen (0.2-1.0) Ur Leukocyte Esterase (Negative) Urine RBC (0-2) Urine WBC (0-5) Ur Squamous Epith Cells (None-Few) Urine Bacteria (None) SARS-CoV-2 (PCR) Negative SARS-CoV-2 (Negative) Influenza Type A (PCR) Negative PCR FLU A (Negative) Influenza Type B (PCR) Negative PCR FLU B (Negative) RSV (PCR) Negative PCR RSV (Negative) 11/06/23 11/06/23 Range/Units 21:02 22:25 WBC (4.50-11.00) K/uL RBC (4.00-5.20) m/uL Hgb (12.0-16.0) gm/dL Hct (33.0-51.0) % MCV (80-100) fL MCH (26-34) pg MCHC (32-36) gm/dL RDW Coeff of William (11.5-15.5) % Plt Count (140-440) K/uL Neut % (Auto) (42.0-72.0) % Lymph % (Auto) (20-44) % Lasalle % (Auto) (0.0-11.0) % Eos % (Auto) (0.0-7.0) % Baso % (Auto) (0.0-3.0) % Neut # (Auto) (1.7-7.0) K/uL Lymph # (Auto) (0.90-2.90) K/uL Lasalle # (Auto) (0.00-0.90) K/UL Eos # (Auto) (0.00-0.50) K/uL Baso # (Auto) (0.00-0.30) K/uL Abs Immat Gran (auto) (0.00-0.30) K/uL Imm/Tot Granulo (auto) % Sodium (135-149) mmol/L Potassium (3.6-5.1) mmol/L Chloride (96-114) mmol/L Carbon Dioxide (20-32) mmol/L Anion Gap (7-15) mEq/L BUN (5-24) mg/dL Creatinine (0.5-1.5) mg/dL Estimated Creat Clear Estimated GFR ml/min Glucose (60-115) mg/dL Lactate (0.5-1.9) mmol/L Calcium (8.4-10.6) mg/dL Phosphorus (2.5-4.5) mg/dL Total Bilirubin (0.1-1.5) mg/dL AST (12-35) U/L ALT (4-35) U/L Alkaline Phosphatase (40-150) U/L C-Reactive Protein (0.5-1.0) mg/dL Total Protein (6.0-8.3) g/dL Albumin (3.3-5.0) g/dL Procalcitonin Cancelled (<0.50) ng/mL Urine Color Yellow (Yellow) Urine Appearance Clear (Clear) Urine pH 5.0 (5.0-8.5) Ur Specific [place] 1.020 (1.000-1.030) Urine Protein 2+ A (Negative) Urine Glucose (UA) Negative (Negative) Urine Ketones Trace A (Negative) Urine Blood Trace-lysed A (Negative) Urine Nitrite Negative (Negative) Urine Bilirubin 1+ A (Negative) Urine Urobilinogen 0.2 (0.2-1.0) Ur Leukocyte Esterase Negative (Negative) Urine RBC 0-2 (0-2) Urine WBC 0-2 (0-5) Ur Squamous Epith Cells Few (None-Few) Urine Bacteria Few A (None) SARS-CoV-2 (PCR) (Negative) Influenza Type A (PCR) (Negative) Influenza Type B (PCR) (Negative) RSV (PCR) (Negative) Discharge Plan Discharge Clinical Impression: Fever Patient Disposition: Home w/ Parent or Adult Condition: Stable Instructions: Fever in Adults (ED) Additional Instructions: Tylenol as needed for fever Plenty of rest Plenty of fluids Keep outpatient appointment with dialysis tomorrow. Activity Level: No Restrictions Discharge Diet: Regular Prescriptions: No Action Celine-Wally 0.8 mg tablet 1 tab PO DAILY amlodipine 5 mg tablet 5 mg PO DAILY clobetasol 0.05 % cream topical PRN carvedilol 12.5 mg tablet 12.5 mg PO BID Follow Up/Referrals: Shonda Saba MD [Primary Care Provider] - Stand Alone Forms: MyHealth Info Instructions
--- NOTE | 2023-11-06 21:01 | CRLHL7_ITS ---
For Patients: As a result of the Cures Act, medical imaging exams and procedure reports are released immediately into your electronic medical record. You may view this report before your referring provider. If you have questions, please contact your health care provider. INDICATION: Fever TECHNIQUE: Chest radiograph 1 view COMPARISON: None FINDINGS: The sensitivity and specificity of the exam are severely limited by the patient`s body habitus. Mediastinum: The mediastinum is normal in appearance. The heart silhouette is normal in size and morphology. Right IJ line is present with the tip near the cavoatrial junction. Lung: Small lung volumes are present with mild pulmonary vascular congestion and suspected mild perihilar edema. No sign of pleural effusion seen. No pneumothorax is identified. Bone and Soft tissue: Unremarkable for age. IMPRESSION: 1. Small lung volumes are present with mild pulmonary vascular congestion and suspected mild perihilar edema. Dictated by eTn Wolf MD @ 11/06/2023 9:37:22 PM Dictated by: Ten Wolf MD @ 11/06/2023 21:37:28 (Electronically Signed)
[2023-11-06] MEDS: ACETAMINOPHEN 500 MG TABLET 1000 MG PO (21:07)
[2023-11-06 21:08] LABS: Lactate* 2.4 mmol/L (0.5-1.9)
[2023-11-06] MEDS: 0.9 % SODIUM CHLORIDE 1000 ml 1,000 ML IV ×2 (21:08→23:05)
--- OUTSIDE RECORDS SUMMARY | 2023-11-06 21:10 | XMS_ITS | Clinical Summary ---
Author Organization [facility] Address [address] [place] [id number] Care Team Providers Care Manager Unix Name Role Phone No Ref-Primary, Physician Primary Care Provider Allergies No known active allergies Medications Medication Sig Dispensed Refills Start Date End Date Status amLODIPine (NORVASC) 5 MG tablet Daily 11/02/2020 Active loperamide (IMODIUM A-D) 2 MG tabletIndications:Pinky rrhea of presumed infectious origin Take 2 tabs now then one tab after each watery stool. 40 tablet 05/25/2021 Active Social History Tobacco Use Types Packs/Day Years Used Date Smoking Tobacco: Never Assessed Adolescent Education Answer Date Record ed Getting School Help Needed Not on file 11/09 Sex and Gender Information Value Date Recorded Sex Assigned at Not on file Gender Identity Not on file Sexual Orientation Not on file Last Filed Vital Signs Vital Sign Reading Time Taken Comments Blood Pressure 134/82 05/25/2021 4:56 PM CDT Pulse 68 05/25/2021 4:56 PM CDT Temperature 36.8 ??C (98.3 ??F) 05/25/2021 4:56 PM CD T Respiratory Rate - - Oxygen Saturation - - Inhaled Oxygen Concentration - - Weight 90.7 kg (200 lb) 05/25/2021 4:56 PM CDT Height - - Body Mass Index - - Plan of Treatment Health Maintenance Due Date Last Done Comments ADVANCE CARE PLANNING 1974 ANNUAL REVIEW OF HM ORDERS 1974 CT COLONOGRAPHY 1974 FIT 1974 FLEX SIG 1974 GLUCOSE 1974 MAMMO SCREENING 1974 YEARLY PREVENTIVE VISIT 1974 sDNA (Cologuard) 1974 COLONOSCOPY 1984 COLORECTAL CANCER SCREENING 1984 HIV SCREENING 1989 HEPATITIS C SCREENING 1992 PAP 12/29/1995 LIPID 2014 HEPATITIS B IMMUNIZATION (2 of 3 - 19+ 3-dose series) 06/07/2016 05/10/2016 PHQ-2 (once per calendar year) 2023 COVID-19 Vaccine (3 - season) 2023 06/23/2020, 06/02/2020 INFLUENZA VACCINE (#1) 2023 9, 05/10/2016, 03/02/2015, Additional history exists DTAP/TDAP/TD IMMUNIZATION (3 - Td or Tdap) 05/10/2026 05/10/2016, 03/08/2009 HPV IMMUNIZATION Aged Out No longer e ligible based on patient's age to complete this topic MENINGITIS IMMUNIZATION Aged Out No l onger eligible based on patient's age to complete this topic Pneumococcal Vaccine: Pediatrics (0 to 5 Years) and At-Risk Patients (6 to 64 Years) Aged Out No longer eligible based on patient's age to complete this topic RSV MONOCLONAL ANTIBODY Aged Out No l onger eligible based on patient's age to complete this topic Care Teams Manager Unix Relationship Specialty Start Date End Date No Ref-Primary, Physician PCP - General 05/25/21
--- OUTSIDE RECORDS SUMMARY | 2023-11-06 21:10 | XMS_ITS | Clinical Summary ---
Author Organization [facility] Address [address] [place] [address] Care Team Providers Care Information Security Associate Name Role Phone None Reported, Pcp Primary Care Provider Unavail able Source Comments Patient records contain information from all sites at [facility]. For routine questions regarding patient records, call [phone] during business hours, M-F 8:00 AM - 5:00 PM Central Time. Record requests for emergency care only can be directed to [phone] at any time.[facility] Allergies No known active allergies Medications Medication Sig Dispensed Refills Start Date End Date Status loperamide (IMODIUM A-D) 2 mg tablet Take 2 tabs now then one tab after each watery stool. 05/25/2021 Active amLODIPine (NORVASC) 10 mg tablet 10 mg daily. 11/02/2020 Active carvediloL (COREG) 12.5 mg tablet Take 1 tablet (12.5 mg total) by mouth 2 (two) times a day with meals. 180 tablet 3 05/06/2023 05/05/2024 Active torsemide (DEMADEX) 20 mg tablet Take 2 tablets (40 mg total) by mouth daily. 180 tablet 3 05/06/2023 05/05/2024 Active calcium acetate,phosphat bind, (PHOSLO) 667 mg (169 mg calcium) capsule Take 1 capsule (667 mg total) by mouth 3 (three) times a day with meals. 270 capsule 3 05/13/2023 Active sodium bicarbonate 650 mg tablet Take 2 tablets (1,300 mg total) by mouth 2 (two) times a day. 360 tablet 3 05/13/2023 Active clobetasoL (Temovate) 0.05 % cream Apply 1 Application topically 2 (two) times a day. Apply to affected area in her lower extremity. 30 g 08/06/2023 Active Active Problems Problem Noted Date Diagnosed Date Chronic Failure Renal End St age Renal Disease Dialysis Dependent 07/10/2023 Failure Renal Acute (Acute Kidney Injury) 2023 Encounters Date Type Department Care Team Description 10/17/2023 Documentation Division of Nephrology and Hypertension, [facility], in [place], [place] [address] [place] [address] Melly Goldstein R.N. NEDRA (acute kidney injury) 10/13/2023 Orders Only Division of Nephrology and Hypertension, [facility], in [place], [place] [address] [place] [address] Nicholas Tracey APRN, C.N.P., M.S.N. 10/09/2023 12:17 PM CDT - 10/09/2023 3:11 PM CDT Hospital Encounter Department of Radiology in [place], [place] [address] [place] [address] Yin Garcia APRN, C.N.P., D.N.P. Emigdio Colon M.D. Hemodialysis Status (HCC) Discharge Disposition: Home or Self Care 10/08/2023 Documentation Division of Nephrology and Hypertension in [place], [place] [address] [place] [address] Rosanna Serrato, R.N. 10/08/2023 Orders Only Division of Nephrology and Hypertension in [place], [place] [address] [place] [address] Yin Garcia APRN, C.N.P., D.N.P. Hemodialysis Status (HCC) (Primary Dx) 09/24/2023 Episode Changes Transplant Center in [place], [place] [address] [place] [address] Shonda Florence 09/19/2023 Episode Changes Division of Nephrology and Hypertension in [place], [place] [address] [place] [address] Jo Root M.D., Ph.D. 08/06/2023 Orders Only Division of Nephrology and Hypertension, [facility], in [place], [place] [address] [place] [address] Nicholas Tracey, Walter BHATTINJanieP., M.S.N. Trigger Finger Middle Right (Primary Dx) from Last 3 Months Immunizations Name Administration Dates Next Due DTaP (Infanrix, [employer]) 03/08/2009 Influenza, Unspecified 11/27/2009,11/17/2008 Social History Tobacco Use Types Packs/Day Years Used Date Smoking Tobacco: Never Smokeless Tobacco: Never Tobacco Cessation:Counseling Given: Not Answered Alcohol Use Standard Drinks/Week Comments Never 0 (1 standard drink = 0.6 oz pur e alcohol) [facility] Utilities Answer Date Recorded In the past 12 months has th e [employer], gas, oil, or water [email or web address] threatened to shut off services in your home? Yes 03/13/2023 Exercise Vital Sign Answer Date Recorde d On average, how many days pe r week do you engage in moderate to strenuous exercise (like a brisk walk)? 4 days Minutes of Exercise per Session Not on file 03/13/2023 Hunger Vital Sign Answer Date Recorded Within the past 12 months, y ou worried that your food would run out before you got the money to buy more. Never true Within the past 12 months, t he food you bought just didn't last and you didn't have money to get more. Patient declined PRAPARE - Transportation Answer Date Re corded In the past 12 months, has l ack of transportation kept you from medical appointments or from getting medications? No 02/18 In the past 12 months, has l ack of transportation kept you from meetings, work, or from getting things needed for daily living? No 03/13/2023 Nutrition Answer Date Recorded On average, how many serving s of fruits and vegetables do you eat per day (serving size is equal to 1 cup or approximately the size of a tennis ball)? 3-5 03/13/2023 Dental Answer Date Recorded Dental: Regular Dentist No 03/13/19 Employment Answer Date Recorded Employment status Employed and actively working without restrictions 03/13/2023 Housing Stability Answer Date Recorded What is your living situation today? I have a [facility] place to live 03/13/2023 Sex and Gender Information Value Date Recorded Sex Assigned at Female 03/13/2023 1:38 PM CRIME SCENE INVESTIGATOR Gender Identity Female 03/13/2023 1:42 PM CRIME SCENE INVESTIGATOR Sexual Orientation Straight 03/13/2023 1: 42 PM CRIME SCENE INVESTIGATOR Last Filed Vital Signs Vital Sign Reading Time Taken Comments Blood Pressure 126/74 10/09/2023 2:15 PM CDT Pulse 57 10/09/2023 2:33 PM CDT Temperature 36.7 ??C (98.1 ??F) 10/09/2023 2:31 PM CD T Respiratory Rate 12 10/09/2023 2:33 PM CDT Oxygen Saturation 98% 10/09/2023 2:33 PM CDT Inhaled Oxygen Concentration - - Weight 106 kg (232 lb 12.9 oz) 10/09/2023 1:00 P M CDT Height 153.6 cm (5' 0.47) 03/13/2023 11:[address] Body Mass Index 44.76 03/13/2023 11:03 AM CRIME SCENE INVESTIGATOR Plan of Treatment Upcoming Encounters Date Type Department Care Team (Latest Contact Info) Description 11/27/2023 8:30 AM CDT Appointment Department of Radiology, [facility], in [place], [place] [address] [place] [address] Jo Root M.D., Ph.D. [address] [place] [address] Discharge Disposition: Home or Self Care 11/27/2023 10:30 AM CDT Nurse Only Division of Nephrology and Hypertension in [place], [place] [address] [place] [address] Jo Root M.D., Ph.D. [address] [place] [phone] 11/27/2023 1:00 PM CDT Comprehensive Visit Division of Vascular and Endovascular Surgery in [place], [place] [address] [place] [address] Jo Root M.D., Ph.D. [address] [place] [address] Health Maintenance Due Date Last Done Comments CT Colonography 1974 Cologuard 1974 Colonoscopy 1974 Colorectal Cancer Screening 1974 FIT 1974 HIV Screening 1974 Hepatitis C Screening 1974 Mammogram 1974 Pneumococcal vaccine (0-64 y ears) (1 of 2 - PCV) 1980 Hepatitis B Vaccines (2 of 3 - 19+ 3-dose series) 06/07/2016 05/10/2016 Cervical Cancer Screening 07/29/2021 07/29/2018 Depression Screening (Annual PHQ-2) 02/17/2023 Lipid (Cholesterol) Screening 07/30/2023 07/29/2018 COVID-19 Vaccine (4 - 2022-2 4 season) 2023 03/07/2021, 06/23/2020, 06/02/2020 Influenza Vaccine (#1) 2023 , 12/17/2018, 05/10/2016, Additional history exists Creatinine Level (Kidney Fun ction Test) 04/08/2024 04/08/2023, 03/13/2023, 03/10/2023, Additional history exists Potassium Level 04/08/2024 04/08/2023, 02/18, 03/10/2023, Additional history exists Sodium Level 04/08/2024 04/08/2023, 02/18, 03/10/2023, Additional history exists Fasting Glucose for Diabetes Screening 04/08/2026 04/08/2023, 03/13/2023, 03/10/2023, Additional history exists DTaP,Tdap,and Td Vaccines (3 - Td or Tdap) 05/10/2026 05/10/2016, 03/08/2009, 03/08/2009 Procedures Procedure Name Priority Date/Time Associated Diagnosis Comments IR DIALYSIS / HIGH FLOW CATHETER EXCHANGE RAD - Routine (most inpatients and all outpatients) 10/09/2023 2:12 PM CDT Hemodialysis Status (HCC) RENAL FUNCTION PANEL, S Routine 04/08/2023 12:39 PM CRIME SCENE INVESTIGATOR Failure Renal Acute (Acute Kidney Injury) (HCC) from Last 3 Months or Most Recently Relevant to Health Maintenance Results * IR Dialysis / High Flow Catheter Exchange (10/09/2023 2:12 PM CDT) Anatomical Region Laterality Modality Body, Vascular Interventiona l RST LOS, Vascular Interventional ARZ LOS, Vascular Interventional FLA LOS N/A X-Ray Angiography Impressions 10/09/2023 2:41 PM CDT Exchange of the right IJ Palindrome dialysis catheter, following balloon disruption of a fibrin sleeve. New catheter is ready for use. NR Narrative 10/09/2023 2:41 PM CDT EXAM: IR DIALYSIS / HIGH FLOW CATHETER EXCHANGE CLINICAL HISTORY: Malfunctioning tunneled right IJ dialysis catheter. TECHNIQUE: She was given prophylactic intravenous Ancef. The right chest wall and indwelling right IJ tunneled dialysis catheter were prepped and draped sterilely. A online advertising director view showed the tip of the catheter to be within the mid right atrium. It was removed over 2 stiff Glidewire. This included the dacryon cuff. A vascular sheath was advanced over one of the wires into the right innominate vein. A venogram was performed of the central right IJ, innominate vein, and SVC. There is a significant fibrin sleeve. 12 mm venoplasty was performed across the right atrium, SVC, right innominate vein and central right IJ. With the sheath in place, I placed a pursestring suture at the tunnel entrance site with 4-0 Vicryl to reduce oozing. The sheath was exchanged for a new 23 cm Palindrome tunneled dialysis catheter. It was advanced via the previous tract and the tip positioned within the mid to deep right atrium. No change in heart rate or rhythm. Lumens flushed and aspirated easily. Each was flushed with sodium citrate and caps were placed. Catheter sutured to the skin with Prolene. A sterile dressing was applied. PREPROCEDURE: Patient seen, evaluated, history reviewed, and approved for sedation. Airway, heart, and lung exam satisfactory for sedation. Discussed risks, benefits, alternatives for procedure, and/or sedation. The roles and responsibilities of care team members, residents, and fellows were discussed. Patient understands information and questions answered. Informed consent obtained from the patient via in person hot roller.. Immediately prior to starting the procedure, in the presence of the assisting personnel, a procedural pause was conducted to verify correct patient identity and verification of procedure to be performed, and as applicable, correct side and site, correct patient position, availability of implants, special equipment, or special requirements, and all image and specimen identification data. For placement of this central venous access, we followed catheter checklist and a standardized protocol. The position of the catheter tip was confirmed under fluoroscopic guidance, and a final image of the catheter position was obtained. Ready for use. INTRAPROCEDURE: Moderate sedation was administered by sedation nurse under my supervision. The patient was continuously monitored with real time oxygen saturation, heart rate, ECG rhythm strip and blood pressure throughout administration of the sedation and performance of the procedure. The total intra-procedural sedation time was: 25 minutes. Estimated blood loss: 25 mL. Procedure Note Emigdio Colon M.D. - 10/09/2023 EXAM: IR DIALYSIS / HIGH FLOW CATHETER EXCHANGE CLINICAL HISTORY: Malfunctioning tunneled right IJ dialysis catheter. TECHNIQUE: She was given prophylactic intravenous Ancef. The right chestwall and indwelling right IJ tunneled dialysis catheter were prepped anddraped sterilely. A online advertising director view showed the tip of the catheter to be withinthe mid right atrium. It was removed over 2 stiff Glidewire. This included the dacryon cuff. A vascularsheath was advanced over one of the wires into the right innominate vein.A venogram was performed of the central right IJ, innominate vein, andSVC. There is a significant fibrin sleeve. 12 mm venoplasty was performed across the right atrium, SVC,right innominate vein and central right IJ. With the sheath in place, Iplaced a pursestring suture at the tunnel entrance site with 4-0 Vicryl toreduce oozing. The sheath was exchanged for a new 23 cm Palindrome tunneled dialysis catheter. It wasadvanced via the previous tract and the tip positioned within the mid todeep right atrium. No change in heart rate or rhythm. Lumens flushed andaspirated easily. Each was flushed with sodium citrate and caps were placed. Catheter sutured to the skinwith Prolene. A sterile dressing was applied. PREPROCEDURE: Patient seen, evaluated, history reviewed, and approved forsedation. Airway, heart, and lung exam satisfactory for sedation.Discussed risks, benefits, alternatives for procedure, and/or sedation.The roles and responsibilities of care team members, residents, and fellows were discussed. Patient understandsinformation and questions answered. Informed consent obtained from thepatient via in person hot roller.. Immediately prior tostarting the procedure, in the presence of the assisting personnel, a procedural pause was conducted toverify correct patient identity and verification of procedure to beperformed, and as applicable, correct side and site, correct patientposition, availability of implants, special equipment, or special requirements, and all image and specimenidentification data. For placement of this central venous access, we followed catheterchecklist and a standardized protocol. The position of the catheter tipwas confirmed under fluoroscopic guidance, and a final image of thecatheter position was obtained. Ready for use. INTRAPROCEDURE: Moderate sedation was administered by sedation nurse undermy supervision. The patient was continuously monitored with real timeoxygen saturation, heart rate, ECG rhythm strip and blood pressurethroughout administration of the sedation and performance of the procedure. The total intra-procedural sedation timewas: 25 minutes. Estimated blood loss: 25 mL. IMPRESSION: Exchange of the right IJ Palindrome dialysis catheter, following balloondisruption of a fibrin sleeve. New catheter is ready for use. NR Yin Garcia APRN, C.N.P., D.N.P. IMG IR PROCEDURES * (ABNORMAL) Renal Function Panel (04/08/2023 12:39 PM CRIME SCENE INVESTIGATOR) Potassium, S 5.0 3.6 - 5.2 mmol/L 04/08/2023 2:11 PM CRIME SCENE INVESTIGATOR DTL Sodium, S 139 135 - 145 mmol/L 04/08/2023 2:11 PM CRIME SCENE INVESTIGATOR DTL Chloride, S 108(H) 98 - 107 mmol/L 04/08/2023 2:11 PM CRIME SCENE INVESTIGATOR DTL Bicarbonate, S 18(L) 22 - 29 mmol/L 04/08/2023 2:11 PM CRIME SCENE INVESTIGATOR DTL Anion Gap 13 7 - 15 04/08/2023 2:11 PM CRIME SCENE INVESTIGATOR DTL BUN (Blood Urea Nitrogen), S 71(H) 6 - 21 mg/dL 04/08/2023 2:11 PM CRIME SCENE INVESTIGATOR DTL Creatinine 4.41(H) 0.59 - 1.04 mg/dL 04/08/2023 2:11 PM CRIME SCENE INVESTIGATOR DTL Estimated GFR (eGFR) <15(L) >=60 mL/min/BSA 04/08/2023 2:11 PM CRIME SCENE INVESTIGATOR DTL Comment: Estimated GFR calculated using the 2020 CKD_EPI creatinine equation. Calcium, Total, S 8.8 8.6 - 10.0 mg/dL 04/08/2023 2:11 PM CRIME SCENE INVESTIGATOR DTL Glucose, S 103 70 - 140 mg/dL 04/08/2023 2:11 PM CRIME SCENE INVESTIGATOR DTL Albumin, S 4.0 3.5 - 5.0 g/dL 04/08/2023 2:11 PM CRIME SCENE INVESTIGATOR DTL Phosphorus (Inorganic), S 4.9(H) 2.5 - 4.5 mg/dL 04/08/2023 2:11 PM CRIME SCENE INVESTIGATOR DTL Blood (Blood, Venous) 04/08/2023 12:39 PM CRIME SCENE INVESTIGATOR 04/08/2023 1:34 PM CRIME SCENE INVESTIGATOR Yin Garcia APRN, C.N.P., D.N.P. LAB BLOOD ADD-ON [facility] [address] [place] [address], [facility] [address] [place] [address] from Last 3 Months or Most Recently Relevant to Health Maintenance Advance Directives For more information, please contact: [phone] * Full Code (Latest Code Status on File) Date Activated Date Inactivated Comments 10/09/2023 1:45 PM Question Answer Comments Full Code: Not Discussed Due to: Patient not available * Full Code Date Activated Date Inactivated Comments 03/17/2023 12:45 PM 03/17/2023 5:05 PM Question Answer Comments Full Code: Not Discussed Due to: Not medically appropriate Care Teams Information Security Associate Relationship Specialty Start Date End Date None Reported, Pcp PCP - General Family Medicine 03/10/23
--- OUTSIDE RECORDS SUMMARY | 2023-11-06 21:10 | XMS_ITS | Referral Summary ---
Author Organization [facility] Address [address] [place] [address] Care Team Providers Care Service Station Cashier Name Role Phone No Ref-Primary, Physician Primary [...] Mass Index - - Plan of Treatment Not on file Care Teams Service Station Cashier Relationship Specialty Start Date End Date No Ref-Primary, Physician PCP - General 05/25/21
--- OUTSIDE RECORDS SUMMARY | 2023-11-06 21:11 | XMS_ITS | Clinical Summary ---
Author Organization [employer] [facility] Address [place], [place] [address] Care Team Providers Care Manager Field Investigations Name Role Phone Mayuri Corcoran MD Primary Care Provider Allergies No known active allergies Medications Medication Sig Dispensed Refills Start Date End Date Status lisinopril (PRINIVIL; ZESTRIL) 20 mg tabletIndications:HTN (hypertension) Take 1 tablet by mouth once daily. 30 tablet 1 08/12/2018 Active Active Problems Problem Noted Date Diagnosed Date Major depressive disorder, recurrent episode, mi ld 12/16/2014 Post traumatic stress disorder (PTSD) 03/14/2011 Dysthymia 03/08/2011 Obesity, unspecified 12/26/2010 Pre-diabetes 03/17/2009 Regular astigmatism 12/12/2006 Myopia 12/12/2006 Immunizations Name Administration Dates Next Due Hepatitis B (Adult) 05/10/2016 Influenza, IIV3 (Age >=3 years) 12/26/2010,11/27,11/17/2008 Influenza, IIV4 05/10/2016,03/02/2015 MMR 05/10/2016 Tdap 05/10/2016,03/08/2009 Varicella Vaccine 05/31/2016 Family History Medical History Relation Name Comments Diabetes Brother Diabetes Father Diabetes Mother Diabetes Sister Relation Name Status Comments Brother Father Mother Sister Social History Tobacco Use Types Packs/Day Years Used Date Smoking Tobacco: Never Smokeless Tobacco: Never Tobacco Cessation:Counseling Given: Yes Alcohol Use Standard Drinks/Week Comments No 0 (1 standard drink = 0.6 oz pur e alcohol) PHQ-2 Answer Date Recorded PHQ-2 Score 1 07/29/2018 Sex and Gender Information Value Date Recorded Sex Assigned at Not on file Gender Identity Not on file Sexual Orientation Not on file Obstetrics History Para Term AB IAB SAB Ectopic Multiple Livin g Live Births 4 4 Date Outcome GA Total Labor Labor/2nd/3rd Weight Sex Type Anes PTL Adeline A1 A5 Name Clin Last Filed Vital Signs Vital Sign Reading Time Taken Comments Blood Pressure 137/83 08/12/2018 10:08 AM CDT Pulse 65 08/12/2018 10:08 AM CDT Temperature 36.8 ??C (98.2 ??F) 03/25/2017 8:14 AM CS T Respiratory Rate - - Oxygen Saturation 97% 08/12/2018 10:08 AM CDT Inhaled Oxygen Concentration - - Weight 102 kg (224 lb 12.8 oz) 08/12/2018 10:08 AM CDT Height 154.7 cm (5' 0.91) 07/29/2018 7:42 AM CD T Body Mass Index 42.61 07/29/2018 7:42 AM CDT Plan of Treatment Health Maintenance Due Date Last Done Comments HIV for age 15-65 1989 Hepatitis C screening for age 18-79 1992 BMI (ht and wt on same day) for age 18+ 07/30/2019 07/29/2018, 03/25/2017, 03/06/2016, Additional history exists Depression screening for age 12+ 07/30/2019 07/29/2018, 07/29/2018, 07/29/2018, Additional history exists Colonoscopy through age 75 12/29/2019 Mammogram for age 45-75 12/29/2019 03/07/2016 Pap test for age 21-65 07/29/2021 9, 07/29/2018, 10/02/2011, Additional history exists Lipids for age 45-75 07/30/2023 07/29/2018, 03/17/19 10 COVID-19 vaccine series ( season) 2023 Influenza for age 9-49 10/19/2023 7, 03/02/2015, 12/26/2010, Additional history exists Tetanus booster 05/10/2026 05/10/2016, 03/08/2009 Tdap Completed 05/10/2016, 03/08/2009 Pneumococcal series for age 6-64 Aged Out No longer eligible based on patient's age to complete this topic Procedures Procedure Name Priority Date/Time Associated Diagnosis Comments LIPID PANEL W REFLEX MEASURED LDL Routine 07/29/2018 8:31 AM CDT Lipid screening MARKETING PR INTERN THIN PREP PAP SCREEN IMAGED Routine 07/29/2018 8:05 AM CDT Screening for malignant neoplasm of cervix XR MAMMO BILAT SCREENING Routine 03/07/2016 10:12 AM HEATER PLANER OPERATOR Visit for screening mammogram from Last 3 Months or Most Recently Relevant to Health Maintenance Results * (ABNORMAL) LIPID PANEL W REFLEX MEASURED LDL [[id number]] (07/29/2018 8:31 AM CDT) CHOLESTEROL,TOTAL 172 100 - 199 mg/dL 07/29/2018 1:47 PM CDT [facility] TRIGLYCERIDES 172(H) <150 mg/dL 07/29/2018 1:47 PM CDT [facility] HDL CHOLESTEROL 34(L) >40 mg/dL 9 1:47 PM CDT [facility] NON-HDL CHOLESTEROL 138 <145 mg/dl 07/29/2018 1:47 PM CDT [facility] CHOL/HDL RATIO 5.06(H) <4.50 07/29/2018 1:47 PM CDT [facility] LDL CHOLESTEROL 104 <=130 mg/dL 07/29/2018 1:47 PM CDT [facility] PROVIDER ORDERED STATUS RANDOM 07/29/2018 1:47 PM CDT [facility] Blood BLOOD SPECIMEN / Unknown Butterfly / Unknown 07/29/2018 8:31 AM CDT 07/29/2018 8:31 AM CDT Mayuri Corcoran MD [facility] [address] [place] [address], [place] * MARKETING PR INTERN THIN PREP PAP SCREEN IMAGED [[id number]] (07/29/2018 8:05 AM CDT) Case Report Gynecologic Cytology Report ? Case: [id number] ? Authorizing Provider: ??Mayuri Corcoran MD ? Collected: ? 07/29/2018 0805 ? Ordering Location: ? [facility] ?? Received: ?07/29/2018 0831 ? Clinic ? First Screen: ?Jasen Paula ? Pathologist: ? Molina Arias Jr., ? MD ? Specimen: ?MARKETING PR INTERN ThinPrep Vial Screening, Cervical ? 08/05/2018 6:40 AM CDT [facility]-C ENTRAL LABORATORY INTERPRETATION/ RESULT NEGATIVE FOR INTRAEPITHELIAL LESION OR MALIGNANCY (NIL) (none) 08/05/2018 6:40 AM CDT [facility] IMEN ADEQUACY Satisfactory for evaluation Endocervical component present 08/05/2018 6:40 AM CDT [facility]AL [facility] HPV REQUEST HPV and PAP 08/05/2018 6:40 AM CDT [facility] EN[facility] Date of LMP 07/11/2018 08/05/2018 6:40 AM CDT [facility] Last Pap Date 10/02/11 08/05/2018 6:40 AM CDT [facility] LAB[facility]AT[facility]-C ENTRAL LABORATORY Last Pap Result NIL 9 6:40 AM CDT [facility] Abnormal Pap or [place] Bx in last 5 years No 08/05/2018 6:40 AM CDT [facility] LAB[facility]-C ENTRAL LABORATORY Menstrual Status Regular Periods 08/05/2018 6:40 AM CDT [facility] LABORATORY-C ENTRAL LABORATORY [place] Bx Done Today No 08/05/2018 6:40 AM CDT [facility] ENTRAL LAB[facility]ATORY Additional Information None given 08/05/2018 6:40 AM CDT [facility]TRAL LAB[facility]AT[facility] Automated Review Successful 08/05/2018 6:40 AM CDT [facility] LAB[facility] Comment:Specimen processed s uccessfully by automated clinical psychologist licensed device, ThinPrep Imaging System, [employer] ANCILLARY TESTING MARKETING PR INTERN HPV Ordered, Please see separate report 08/05/2018 6:40 AM CDT [facility] Note The pap test is a screening technique, not a diagnostic procedure. ??It is used primarily to screen for squamous cancers and precursor lesions. ??Published studies have shown that it is subject to both false negative and false positive results. ??The pap test should not be used as the sole means to diagnose or exclude pre-malignant and malignant lesions. Cytology is screened and interpreted at [facility] Laboratory - [address], [place] [address] and [facility] - [address]; [place] [address] and [facility] - [address]; [place] [address] and [facility] [address]; [place] [address] 08/05/2018 6:40 AM CDT [facility] LABORATORY-C ENTRAL LABORATORY Other (Cervical) Non-Blood / Unknown 07/29/2018 8:05 AM CDT 07/29/2018 8:31 AM CDT Mayuri Corcoran MD PATHOLOGY/CYTOLOGY [facility] [address] [place] [address], [place] * XR MAMMO BILAT SCREENING (03/07/2016 10:12 AM HEATER PLANER OPERATOR) Anatomical Region Laterality Modality BREASTS, Breast Left, Breast Right Bilateral Mammography Impressions 03/07/2016 12:39 PM HEATER PLANER OPERATOR ??There is no radiographic evidence for malignancy. ??Recommend annual mammograms. A lay language report of this examination will be provided to the patient. MAMMOGRAM ASSESSMENT: ??ACR 2 Benign Narrative 03/07/2016 12:39 PM HEATER PLANER OPERATOR XR MAMMO BILAT SCREENING [[id number]] CLINICAL HISTORY: ??This is an asymptomatic 40 y.o. patient. INDICATION FOR EXAM: Mammogram Screening. TECHNIQUE: CC & MLO views were obtained. ??This digital study was evaluated with the assistance of Computer-Aided Detection. COMPARISON FILMS: This is a baseline study. FINDINGS: ??Mammographically, the breast tissue is almost entirely fat. ??No suspicious masses or microcalcifications. ??Intramammary lymph node within left breast. Yury Hathaway MD MAMMO from Last 3 Months or Most Recently Relevant to Health Maintenance Care Teams Manager Field Investigations Relationship Specialty Start Date End Date Mayuri Corcoran MD [address] [place] [address] PCP - General Family Practice 09/15/18
--- OUTSIDE RECORDS SUMMARY | 2023-11-06 21:11 | XMS_ITS | Encounter Summary ---
Author Organization [facility] Address [address] [place] [address] Care Team Providers Care Loss Prevention Lead Name Role Phone None Reported, Pcp Primary Care Provider Unavail able Reason for Referral * Specialty Diagnoses / Procedures Referred By Crow olivo Referred To Contact Yin Garcia APRN, C.N.PJanie, D.N.P. [address] [place] [phone] [facility] Referral ID Status Reason Start Date Expiration Date Visits Re quested Visits Authorized * Outpatient (Routine) - Closed Specialty Diagnoses / Procedures Referred By Crow olivo Referred To Contact Radiology Diagnoses Hemodialysis Status (HCC) Procedures IR Dialysis / High Flow Catheter Exchange Yin Garcia APRN, C.N.P., D.N.P. [address] [place] [phone] [facility] Referral ID Status Reason Start Date Expiration Date Visits Re quested Visits Authorized [id number] Closed 10/08/2023 10/07/2024 1 1 Encounter Details Date Type Department Care Team (Late st Contact Info) Description 10/08/2023 Orders Only Division of Nephrology and Hypertension in [place], [place] [address] [place] [phone] Yin Garcia APRN, C.N.P., D.N.P. [address] [place] [phone] Hemodialysis Status (HCC) (Primary Dx) Social History Tobacco Use Types Packs/Day Years Used Date Smoking Tobacco: Never Smokeless Tobacco: Never Alcohol Use Standard Drinks/Week Comments Never 0 (1 standard drink = 0.6 oz pur e alcohol) [facility] Utilities Answer Date Recorded In the past 12 months has e [employer], gas, oil, or water [employer] threatened to shut off services in your [...] your living situation today? I have a [facility] place to live 03/13/2023 Sex and Gender Information Value Date Recorded Sex Assigned at Female 03/13/2023 1:38 PM RAG WILLOW OPERATOR Gender Identity Female 03/13/2023 1:42 PM RAG WILLOW OPERATOR Sexual Orientation Straight 03/13/2023 1: 42 PM RAG WILLOW OPERATOR documented as of this encounter Plan of Treatment Upcoming Encounters Date Type Department Care Team (Latest Contact Info) Description 11/27/2023 8:30 AM CDT Appointment Department of Radiology, [facility], in [place], [place] [address] [place] [phone] Jo oRot M.D., Ph.D. [address] [place] [phone] Discharge Disposition: Home or Self Care 11/27/2023 10:30 AM CDT Nurse Only Division of Nephrology and Hypertension in [place], [place] [address] [place] [phone] Jo Root M.D., Ph.D. [address] [place] [phone] 11/27/2023 1:00 PM CDT Comprehensive Visit Division of Vascular and Endovascular Surgery in [place], [place] [address] [place] [phone] Jo Root M.D., Ph.D. [address] [place] [phone] Scheduled Referrals Name Type Priority Associated Diagnoses Order Schedule Hemodialysis Transient; Outpatient Referral Routine Hemodialysis Status (HCC) 1 Occurrences starting 10/08/2023 until 01/07/2025 documented as of this encounter Results * IR Dialysis / High Flow [...] catheter were prepped and draped sterilely. A gut carrier view showed the tip of the catheter [...] obtained from the patient via in person butcher.. Immediately prior to starting the procedure, in [...] dialysis catheter were prepped anddraped sterilely. A gut carrier view showed the tip of the catheter [...] consent obtained from thepatient via in person butcher.. Immediately prior tostarting the procedure, in the [...] use. NR Yin Garcia APRN, C.N.P., D.N.P. [facility] IR PROCEDURES documented in this encounter Visit Diagnoses Diagnosis Hemodialysis Status (HCC)- Primary Hemodialysis Status (HCC) documented in this encounter Care Teams Loss Prevention Lead Relationship Specialty Start Date End Date None Reported, Pcp PCP - General Family Medicine 03/10/23 documented as of this encounter
--- OUTSIDE RECORDS SUMMARY | 2023-11-06 21:11 | XMS_ITS | Encounter Summary ---
Author Organization [facility] Address [address] [place] [address] Care Team Providers Care Owner Professional Engineer Name Role Phone None Reported, Pcp Primary Care Provider Unavail able Reason for Referral * Outpatient (Routine) - Authorized Specialty Diagnoses / Procedures Referred By Crow oilvo Referred To Contact Dermatology Diagnoses Jo Holder M.D., Ph.D. [address] [place] [phone] [facility] Referral ID Status Reason Start Date Expiration Date Visits Requested Visits Authorized [id number] Authorized Specialty Services Required 08/04/2023 02/02/2025 1 1 Encounter Details Date Type Department Care Team (Late st Contact Info) Description 08/04/2023 Orders Only Division of Nephrology and Hypertension in [place], [place] [address] [place] [phone] Jo Root M.D., Ph.D. [address] [place] [phone] Alexandre (Primary Dx) Social History Tobacco Use Types Packs/Day Years Used Date Smoking Tobacco: Never Smokeless Tobacco: Never Alcohol Use Standard Drinks/Week Comments Never 0 (1 standard drink = 0.6 oz pur e alcohol) [facility] Utilities Answer Date Recorded In the past 12 months has th e electric, gas, oil, or water company threatened to shut off services in your [...] your living situation today? I have a [facility] place to live 03/13/2023 Sex and Gender Information Value Date Recorded Sex Assigned at Female 03/13/2023 1:38 PM LOCKER ROOM ATTENDANT Gender Identity Female 03/13/2023 1:42 PM LOCKER ROOM ATTENDANT Sexual Orientation Straight 03/13/2023 1: 42 PM LOCKER ROOM ATTENDANT documented as of this encounter Plan of Treatment Upcoming Encounters Date Type Department Care Team (Latest Contact Info) Description 11/27/2023 8:30 AM CDT Appointment Department of Radiology, [facility], in [place], [place] [address] [place] [phone] Jo oRot M.D., Ph.D. [address] [place] [phone] Discharge Disposition: Home or Self Care 11/27/2023 10:30 AM CDT Nurse Only Division of Nephrology and Hypertension in [place], [place] [address] [place] [phone] Jo Root M.D., Ph.D. 200 [place] [phone] 11/27/2023 1:00 PM CDT Comprehensive Visit Division of Vascular and Endovascular Surgery in [place], [place] [address] [place] [phone] Jo Root M.D., Ph.D. 200 [place] [phone] Scheduled Referrals Name Type Priority Associated Diagnoses Order Schedule Dermatology - General consult (clinic) Outpatient Referral Routine Rash Expected: 08/04/2023, Expires: 11/03/2024 documented as of this encounter Visit Diagnoses Diagnosis Rash- Primary documented in this encounter Care Teams Owner Professional Engineer Relationship Specialty Start Date End Date None Reported, Pcp PCP - General Family Medicine 03/10/23 documented as of this encounter
--- OUTSIDE RECORDS SUMMARY | 2023-11-06 21:11 | XMS_ITS | Encounter Summary ---
Author Organization [facility] Address [address] [place] [phone] Care Team Providers Care Retail Advisor Name Role Phone None Reported, Pcp Primary Care Provider Unavail able Encounter Details Date Type Department Care Team (Late st Contact Info) Description 08/06/2023 Orders Only Division of Nephrology and Hypertension, [facility], in [place], [place] [address] [place] [phone] Nicholas Tracey, CHILD CARE CENTER ASSISTANT DIRECTOR, C.N.P., M.S.N. [address] [place] [phone] Trigger Finger Middle Right (Primary Dx) Social History Tobacco Use Types Packs/Day Years Used Date Smoking Tobacco: Never Smokeless Tobacco: Never Alcohol Use Standard Drinks/Week Comments Never 0 (1 standard drink = 0.6 oz pur e alcohol) [facility] Utilities Answer Date Recorded In the past 12 months has [facility] [employer], gas, oil, or water [employer] threatened to shut off services in your [...] your living situation today? I have a [facility] place to live 03/13/2023 Sex and Gender Information Value Date Recorded Sex Assigned at Female 03/13/2023 1:38 PM BOX WORKER Gender Identity Female 03/13/2023 1:42 PM BOX WORKER Sexual Orientation Straight 03/13/2023 1: 42 PM BOX WORKER documented as of this encounter Plan of Treatment Upcoming Encounters Date Type Department Care Team (Latest Contact Info) Description 11/27/2023 8:30 AM CDT Appointment Department of Radiology, [facility], in [place], [place] [address] [place] [phone] Jo Root M.D., Ph.D. [address] [place] [phone] Discharge Disposition: Home or Self Care 11/27/2023 10:30 AM CDT Nurse Only Division of Nephrology and Hypertension in [place], [place] [address] [place] [phone] Jo Root M.D., Ph.D. [address] [place] [phone] 11/27/2023 1:00 PM CDT Comprehensive Visit Division of Vascular and Endovascular Surgery in [place], [place] [address] [place] [phone] Jo Root M.D., Ph.D. [address] [place] [phone] documented as of this encounter Visit Diagnoses Diagnosis Trigger Finger Middle Right- Primary documented in this encounter Care Teams Retail Advisor Relationship Specialty Start Date End Date None Reported, Pcp PCP - General Family Medicine 03/10/23 documented as of this encounter
--- OUTSIDE RECORDS SUMMARY | 2023-11-06 21:11 | XMS_ITS | Encounter Summary ---
Author Organization [facility] Address [address] [place] [address] Care Team Providers Care Editorial Manager Name Role Phone None Reported, Pcp Primary Care Provider Unavail able Reason for Referral * Outpatient (Routine) - Closed Specialty Diagnoses / Procedures Referred By Crow olivo Referred To Contact Radiology Diagnoses Hemodialysis Status (HCC) Procedures IR Dialysis / High Flow Catheter Exchange Yin Garcia APRN, C.N.P., D.N.P. [address] [place] [phone] [facility] Referral ID Status Reason Start Date Expiration Date Visits Re quested Visits Authorized [id number] Closed 10/08/2023 10/07/2024 1 1 Reason for Visit * Outpatient (Routine) - Closed Specialty Diagnoses / Procedures Referred By Crow olivo Referred To Contact Radiology Diagnoses Hemodialysis Status (HCC) Procedures IR Dialysis / High Flow Catheter Exchange Yin Garcia APRN, C.N.P., D.N.P. [address] [place] [phone] [facility] Referral ID Status Reason Start Date Expiration Date Visits Re quested Visits Authorized [id number] Closed 10/08/2023 10/07/2024 1 1 Encounter Details Date Type Department Care Team (Latest Contact Info) Description 10/09/2023 12:17 PM CDT - 10/09/2023 3:11 PM CDT Hospital Encounter Department of Radiology in [place], [place] [address] [place] [phone] Yin Garcia APRN, C.N.P., D.N.P. [address] [place] [phone] Emigdio Colon M.D. [address] [place] [phone] Hemodialysis Status (HCC) Discharge Disposition: Home or Self Care Social History Tobacco Use Types Packs/Day Years Used Date Smoking Tobacco: Never Smokeless Tobacco: Never Alcohol Use Standard Drinks/Week Comments Never 0 (1 standard drink = 0.6 oz pur e alcohol) [facility] Utilities Answer Date Recorded In the past 12 months has e [employer], gas, oil, or water [employer] threatened to shut off services in your [...] your living situation today? I have a [facility] place to live 03/13/2023 Sex and Gender Information Value Date Recorded Sex Assigned at Female 03/13/2023 1:38 PM DIRECTOR OUTPATIENT SERVICES Gender Identity Female 03/13/2023 1:42 PM DIRECTOR OUTPATIENT SERVICES Sexual Orientation Straight 03/13/2023 1: 42 PM DIRECTOR OUTPATIENT SERVICES documented as of this encounter Last Filed Vital Signs Vital Sign Reading [...] oz) 10/09/2023 1:00 P M CDT Height - - Body Mass Index 44.76 03/13/2023 11:03 AM DIRECTOR OUTPATIENT SERVICES documented in this encounter Discharge Instructions * Attachments The following attachments cannot be sent through Care Everywhere. * Your High-Flow Central Venous Catheter (Afghan) documented in this encounter Medications at Time of Discharge Medication Sig Dispensed Refills Start Date End Date amLODIPine (NORVASC) 10 mg tablet 10 mg daily. 11/02/2020 calcium acetate,phosphat bind, (PHOSLO) 667 mg (169 mg calcium) capsule Take 1 capsule (667 mg total) by mouth 3 (three) times a day with meals. 270 capsule 3 05/13/2023 carvediloL (COREG) 12.5 mg tablet Take 1 tablet (12.5 mg total) by mouth 2 (two) times a day with meals. 180 tablet 3 05/06/2023 05/05/2024 clobetasoL (Temovate) 0.05 % cream Apply 1 Application topically 2 (two) times a day. Apply to affected area in her lower extremity. 30 g 08/06/2023 loperamide (IMODIUM A-D) 2 mg tablet Take 2 tabs now then one tab after each watery stool. 05/25/2021 sodium bicarbonate 650 mg tablet Take 2 tablets (1,300 mg total) by mouth 2 (two) times a day. 360 tablet 3 05/13/2023 torsemide (DEMADEX) 20 mg tablet Take 2 tablets (40 mg total) by mouth daily. 180 tablet 3 05/06/2023 05/05/2024 documented as of this encounter H&P Notes * Emigdio Colon M.D. - 10/09/2023 12:57 PM CDT SUBJECTIVE CHIEF COMPLAINT / REASON FOR VISIT Leny Ramirez is a 47 y.o. female who presents for tunneled dialysis catheter exchange. HISTORY OF PRESENT ILLNESS/MODERATE SEDATION Consents Obtained: written The benefits, risks and alternatives of sedation or anesthesia, as well as the names, roles, and responsibilities of the healthcare team members, were discussed with the patient and/or decision maker: yes Procedure / Reason for visit: The planned surgery or procedure was verified with the patient and/ordecision maker The following portions of the patient's history were reviewed and updated as appropriate: allergies, current medications, family history, medical history, surgical history, social history and problemlist. yes Review of systems: pertinent ROS negative Mallampati: II - soft palate, uvula, fauces visible Heart: normal Lung: normal General / Constitutional: generalized obesity ASA physical exam: Class 2 - patient with mild systemic disease Patient seen, evaluated and approved for sedation Sedation plan: moderate sedation VITAL SIGNS Preprocedure vitals reviewed ASSESSMENT / PLAN Cleared for sedation. documented in this encounter Plan of Treatment Upcoming Encounters Date Type Department Care Team (Latest Contact Info) Description 11/27/2023 8:30 AM CDT Appointment Department of Radiology, [facility], in [place], [place] [address] [place] [phone] Jo Root M.D., Ph.D. [address] [place] [phone] Discharge Disposition: Home or Self Care 11/27/2023 10:30 AM CDT Nurse Only Division of Nephrology and Hypertension in [place], [place] [address] [place] [phone] Jo Root M.D., Ph.D. [address] [place] [phone] 11/27/2023 1:00 PM CDT Comprehensive Visit Division of Vascular and Endovascular Surgery in [place], [place] [address] [place] [phone] Jo Root M.D., Ph.D. [address] [place] [phone] documented as of this encounter Procedures Procedure Name Priority Date/Time Associated Diagnosis Comments IR DIALYSIS / HIGH FLOW CATHETER EXCHANGE RAD - Routine (most inpatients and all outpatients) 10/09/2023 2:12 PM CDT Hemodialysis Status (HCC) documented in this encounter Results * IR Dialysis / [...] catheter were prepped and draped sterilely. A box loader view showed the tip of the catheter [...] obtained from the patient via in person proposal manager writer.. Immediately prior to starting the procedure, in [...] dialysis catheter were prepped anddraped sterilely. A box loader view showed the tip of the catheter [...] consent obtained from thepatient via in person proposal manager writer.. Immediately prior tostarting the procedure, in the [...] catheter is ready for use. NR Yin Card Jose BHATTI, C.N.PJanie, D.N.P. IMG IR PROCEDURES documented in this encounter Visit Diagnoses Diagnosis Hemodialysis Status (HCC) documented in this encounter Administered Medications Inactive Administered Medications - up to 3 most recent administrations Medication Order MAR Action Action Date Dose Rate Site acetaminophen tablet 1,000 mg (TylenoL) 1,000 mg, oral, Once, On Liv 10/09/23 at 1500, For 1 dose Given 10/09/2023 2:45 PM CDT 1,000 mg ceFAZolin injection 2 g (Ancef) 2 g, intravenous, Once, On Liv 10/09/23 at 1300, For 1 dose, Preprocedure (RAD), For immediate IV push administration, reconstitute vial per IVAG or package insert instructions. See IVAG for administration guidelines., Drug Monitoring Program: Pharmacist to adjust medication dosing based on indication and drug clearance factors., Indications: Prophylaxis, surgical Given 10/09/2023 1:06 PM CDT 2 g fentaNYL injection 25 mcg (Sublimaze) 25 mcg, intravenous, Every 2 min PRN, sedation, Administer over 1 minute immediately prior to the procedure. May repeat every 2 minutes to a maximum of 200 mcg, until pain score of 3 or less, or until the patient meets the pain comfort goal, or RASS 0 to -2. Do not give if respiratory rate is less than 8 breaths/minute., Starting on Liv 10/09/23 at 1332, For 3 hours, Intraprocedure (RAD) Given 10/09/2023 1:57 PM CDT 25 mcg Given 10/09/2023 1:53 PM CDT 25 mcg Given 10/09/2023 1:48 PM CDT 25 mcg fentaNYL injection 50 mcg (Sublimaze) 50 mcg, intravenous, Once as needed, sedation, Starting on Liv 10/09/23 at 1332, For 1 dose, Intraprocedure (RAD), IV Push flumazeniL injection 0.2 mg (Romazicon) 0.2 mg, intravenous, Once as needed, reversal, Starting on Liv 10/09/23 at 1332, For 1 dose, Intraprocedure (RAD), Administer once if patient has a RASS score of -4, -5 and has a respiratory rate less than 8 breaths/minute. iohexoL 300 mg iodine/mL solution (Omnipaque) As needed, Starting on Liv 10/09/23 at 1412, Intra-Op Given 10/09/2023 2:12 PM CDT 10 mL lidocaine-sodium bicarbonate (buffered) 0.9%-0.84% injection infiltration, As needed, Starting on Liv 10/09/23 at 1412, Intra-Op Given 10/09/2023 2:12 PM CDT 20 mL midazolam (PF) injection 0.5 mg (Versed) 0.5 mg, intravenous, Once as needed, sedation, Starting on Liv 10/09/23 at 1332, For 1 dose, Intraprocedure (RAD) Given 10/09/2023 1:44 PM CDT 0.5 mg midazolam (PF) injection 0.5 mg (Versed) 0.5 mg, intravenous, Every 2 min PRN, sedation, RASS -1, Starting on Liv 10/09/23 at 1332, For 3 hours, Intraprocedure (RAD), May repeat every 2 minutes for a maximum of 5 mg. Do not give if respiratory rate is less than 8 breaths/minute. Given 10/09/2023 2:06 PM CDT 0.5 mg Given 10/09/2023 1:59 PM CDT 0.5 mg Given 10/09/2023 1:56 PM CDT 0.5 mg NaCl 0.9% infusion 20 mL/hr, intravenous, Once as needed, to keep vein open, Starting on Liv 10/09/23 at 1332, For 1 dose, Intraprocedure (RAD) New Bag 10/09/2023 1:42 PM CDT 20 mL/hr 20 mL/hr naloxone injection 0.2 mg (Narcan) 0.2 mg, intravenous, Once as needed, respiratory depression, Starting on Liv 10/09/23 at 1332, For 1 dose, Intraprocedure (RAD), Administer once if patient has a RASS score of -4, -5 and has a respiratory rate less than 8 breaths/minute. ondansetron (PF) injection 4 mg (Zofran) 4 mg, intravenous, Once as needed, nausea, vomiting, Starting on Liv 10/09/23 at 1332, For 1 dose, Intraprocedure (RAD) sodium citrate 4 % injection As needed, Starting on Liv 10/09/23 at 1411, Intra-Op Given 10/09/2023 2:11 PM CDT 6 mL documented in this encounter Active and Recently Administered Medications Times are shown in CDT. Scheduled Medication Order 10/07/2023 10/08/2023 10/09/2023 acetaminophen tablet 1,000 mg (TylenoL) (COMPLETED) 1,000 mg, oral, Once, On Liv 10/09/23 at 1500, For 1 dose 1445 (Given - Provid er: Isis Champion R.N.) ceFAZolin injection 2 g (Ancef) (COMPLETED) 2 g, intravenous, Once, On Liv 10/09/23 at 1300, For 1 dose, Preprocedure (RAD), For immediate IV push administration, reconstitute vial per IVAG or package insert instructions. See IVAG for administration guidelines., Drug Monitoring Program: Pharmacist to adjust medication dosing based on indication and drug clearance factors., Indications: Prophylaxis, surgical 1306 (Given - Provid er: Massiel Vidal R.N.) PRN Medication Order 10/07/2023 10/08/2023 10/09/2023 fentaNYL injection 25 mcg (Sublimaze) 25 mcg, intravenous, Every 2 min PRN, sedation, Administer over 1 minute immediately prior to the procedure. May repeat every 2 minutes to a maximum of 200 mcg, until pain score of 3 or less, or until the patient meets the pain comfort goal, or RASS 0 to -2. Do not give if respiratory rate is less than 8 breaths/minute., Starting on Liv 10/09/23 at 1332, For 3 hours, Intraprocedure (RAD) 1344 (Given - Provid er: Stefany Carroll R.N.)1348 (Given - Provider: Stefany Carroll R.N.)1353 (Given - Provider: Stefany Carroll R.N.)1357 (Given - Provider: Stfeany Carroll R.N.) fentaNYL injection 50 mcg (Sublimaze) 50 mcg, intravenous, Once as needed, sedation, Starting on Liv 10/09/23 at 1332, For 1 dose, Intraprocedure (RAD), IV Push flumazeniL injection 0.2 mg (Romazicon) 0.2 mg, intravenous, Once as needed, reversal, Starting on Liv 10/09/23 at 1332, For 1 dose, Intraprocedure (RAD), Administer once if patient has a RASS score of -4, -5 and has a respiratory rate less than 8 breaths/minute. iohexoL 300 mg iodine/mL solution (Omnipaque) (COMPLETED) As needed, Starting on Liv 10/09/23 at 1412, Intra-Op 1412 (Given - Provid er: Emigdio Colon M.D.) lidocaine-sodium bicarbonate (buffered) 0.9%-0.84% injection (COMPLETED) infiltration, As needed, Starting on Liv 10/09/23 at 1412, Intra-Op 1412 (Given - Provid er: Emigdio Colon M.D.) midazolam (PF) injection 0.5 mg (Versed) (COMPLETED) 0.5 mg, intravenous, Once as needed, sedation, Starting on Liv 10/09/23 at 1332, For 1 dose, Intraprocedure (RAD) 1344 (Given - Provid er: Stefany Carroll R.N.) midazolam (PF) injection 0.5 mg (Versed) 0.5 mg, intravenous, Every 2 min PRN, sedation, RASS -1, Starting on Liv 10/09/23 at 1332, For 3 hours, Intraprocedure (RAD), May repeat every 2 minutes for a maximum of 5 mg. Do not give if respiratory rate is less than 8 breaths/minute. 1344 (Given - Provid er: Stefany Carroll R.N.)1352 (Given - Provider: Stefany Carroll R.N.)1356 (Given - Provider: Stefany Carroll R.N.)1359 (Given - Provider: Stefany Carroll R.N.)1406 (Given - Provider: Stefany Carroll R.N.) NaCl 0.9% infusion (COMPLETED) 20 mL/hr, intravenous, Once as needed, to keep vein open, Starting on Liv 24 at 1332, For 1 dose, Intraprocedure (RAD) 1342 (New Bag - Prov ider: Stefany Carroll R.N.)1417 (Stopped - Provider: Stefany Carroll R.N.) naloxone injection 0.2 mg (Narcan) 0.2 mg, intravenous, Once as needed, respiratory depression, Starting on Liv 10/09/23 at 1332, For 1 dose, Intraprocedure (RAD), Administer once if patient has a RASS score of -4, -5 and has a respiratory rate less than 8 breaths/minute. ondansetron (PF) injection 4 mg (Zofran) 4 mg, intravenous, Once as needed, nausea, vomiting, Starting on Liv 10/09/23 at 1332, For 1 dose, Intraprocedure (RAD) sodium citrate 4 % injection (COMPLETED) As needed, Starting on Liv 10/09/23 at 1411, Intra-Op 1411 (Given - Provid er: Emigdio Colon M.D.) documented in this encounter Care Teams Editorial Manager Relationship Specialty Start Date End Date None Reported, Pcp PCP - General Family Medicine 03/10/23 documented as of this encounter
--- OUTSIDE RECORDS SUMMARY | 2023-11-06 21:11 | XMS_ITS | Encounter Summary ---
Author Organization [facility] Address [address] [place] [address] Care Team Providers Care Summer Sessions Director Name Role Phone None Reported, Pcp Primary Care Provider Unavail able Encounter Details Date Type Department Care Team (Late st Contact Info) Description 08/04/2023 Orders Only Division of Nephrology and Hypertension, [facility], in [place], [place] [address] [place] [phone] Nicholas Tracey, CARTOON ARTIST, C.N.P., M.S.N. [address] [place] [phone] Social History Tobacco Use Types Packs/Day Years Used Date Smoking Tobacco: Never Smokeless Tobacco: Never Alcohol Use Standard Drinks/Week Comments Never 0 (1 standard drink = 0.6 oz pur e alcohol) [facility] Utilities Answer Date Recorded In the past 12 months has th e electric, gas, oil, or water [employer] threatened to shut off services in your [...] your living situation today? I have a [facility] place to live 03/13/2023 Sex and Gender Information Value Date Recorded Sex Assigned at Female 03/13/2023 1:38 PM PRINT FINISHING WORKER Gender Identity Female 03/13/2023 1:42 PM PRINT FINISHING WORKER Sexual Orientation Straight 03/13/2023 1: 42 PM PRINT FINISHING WORKER documented as of this encounter Plan of Treatment Upcoming Encounters Date Type Department Care Team (Latest Contact Info) Description 11/27/2023 8:30 AM CDT Appointment Department of Radiology, [facility], in [place], [place] [address] [place] [address] Jo Root M.D., Ph.D. [address] [place] [phone] Discharge Disposition: Home or Self Care 11/27/2023 10:30 AM CDT Nurse Only Division of Nephrology and Hypertension in [place], [place] [address] [place] [phone] Jo Root M.D., Ph.D. [address] [place] [phone] 11/27/2023 1:00 PM CDT Comprehensive Visit Division of Vascular and Endovascular Surgery in [place], [place] [address] [place] [address] Jo Root M.D., Ph.D. [address] [place] [phone] documented as of this encounter Visit Diagnoses Not on filedocumented in this encounter Care Teams Summer Sessions Director Relationship Specialty Start Date End Date None Reported, Pcp PCP - General Family Medicine 03/10/23 documented as of this encounter
--- OUTSIDE RECORDS SUMMARY | 2023-11-06 21:11 | XMS_ITS | Encounter Summary ---
Author Organization [facility] Address [address] [place] [address] Care Team Providers Care Drainlayer Name Role Phone None Reported, Pcp Primary Care Provider Unavail able Reason for Referral * Transplant (Routine) - Authorized Specialty Diagnoses / Procedures Referred By Contac t Referred To Contact Transplant Diagnoses Chronic Kidney Disease Stage 5 GFR Less Than 15 Dialysis Dependent (HCC) Jo Root M.D., Ph.D. [address] [place] [phone] [facility] Referral ID Status Reason Start Date Expiration Date V isits Requested Visits Authorized [id number] Authorized 08/01/2023 01/30/2025 1 1 * Outpatient (Routine) - Authorized Specialty Diagnoses / Procedures Referred By Contac t Referred To Contact Diagnoses Chronic Kidney Disease Stage 5 GFR Less Than 15 Dialysis Dependent (HCC) Procedures US Upper Extremity Bilateral Dialysis Mapping Jo Root M.D., Ph.D. [address] [place] [phone] [facility] Referral ID Status Reason Start Date Expiration Date V isits Requested Visits Authorized [id number] Authorized 08/01/2023 07/31/2024 1 1 * Outpatient (Routine) - Authorized Specialty Diagnoses / Procedures Referred By Contac t Referred To Contact Nephrology and Hypertension / Dialysis Diagnoses Chronic Kidney Disease Stage 5 GFR Less Than 15 Dialysis Dependent (HCC) Jo Root M.D., Ph.D. [address] [place] [phone] [facility] Referral ID Status Reason Start Date Expiration Date V isits Requested Visits Authorized [id number] Authorized 08/01/2023 01/30/2025 1 1 * Outpatient (Routine) - Authorized Specialty Diagnoses / Procedures Referred By Contac t Referred To Contact Nephrology and Hypertension Jo Root M.D., Ph.D. [address] [place] [phone] [facility] Referral ID Status Reason Start Date Expiration Date V isits Requested Visits Authorized [id number] Authorized 08/01/2023 01/30/2025 1 1 Encounter Details Date Type Department Care Team (Late st Contact Info) Description 08/01/2023 Orders Only Division of Nephrology and Hypertension in [place], [place] [address] [place] [phone] Jo Root M.D., Ph.D. [address] [place] [phone] Chronic Kidney Disease Stage 5 GFR Less Than 15 Dialysis Dependent (HCC) (Primary Dx) Social History Tobacco Use Types Packs/Day Years Used Date Smoking Tobacco: Never Smokeless Tobacco: Never Alcohol Use Standard Drinks/Week Comments Never 0 (1 standard drink = 0.6 oz pur e alcohol) [facility] Utilities Answer Date Recorded In the past 12 months has [employer], gas, oil, or water [employer] threatened to shut off services in your [...] your living situation today? I have a [facility] place to live 03/13/2023 Sex and Gender Information Value Date Recorded Sex Assigned at Female 03/13/2023 1:38 PM DRIED YEAST SUPERVISOR Gender Identity Female 03/13/2023 1:42 PM DRIED YEAST SUPERVISOR Sexual Orientation Straight 03/13/2023 1: 42 PM DRIED YEAST SUPERVISOR documented as of this encounter Plan of Treatment Upcoming Encounters Date Type Department Care Team (Latest Contact Info) Description 11/27/2023 8:30 AM CDT Appointment Department of Radiology, [facility], in [place], [place] [address] [place] [phone] Jo Root M.D., Ph.D. [address] [place] [phone] Discharge Disposition: Home or Self Care 11/27/2023 10:30 AM CDT Nurse Only Division of Nephrology and Hypertension in [place], [place] [address] [place] [address] Jo Root M.D., Ph.D. [address] [place] [phone] 11/27/2023 1:00 PM CDT Comprehensive Visit Division of Vascular and Endovascular Surgery in [place], [place] [address] [place] [address] Jo Root M.D., Ph.D. [address] [place] [address] Scheduled Orders Name Type Priority Associated Diagnoses Orde r Schedule US Upper Extremity Bilateral Dialysis Mapping Imaging RAD - Routine (most inpatients and all outpatients) Chronic Kidney Disease Stage 5 GFR Less Than 15 Dialysis Dependent (HCC) Expected: 08/01/2023 (Approximate), Expires: 10/31/2024 Scheduled Referrals Name Type Priority Associated Diagnoses Order Schedule Nephrology nurse visit (clinic) Outpatient Referral Routine 1 Occurrences starting 08/01/2023 until 10/31/2024 Dialysis - Hemodialysis access consult (clinic) Outpatient Referral Routine Chronic Kidney Disease Stage 5 GFR Less Than 15 Dialysis Dependent (HCC) 1 Occurrences starting 08/01/2023 until 10/31/2024 Transplant - Kidney and pancreas consult (clinic) Outpatient Referral Routine Chronic Kidney Disease Stage 5 GFR Less Than 15 Dialysis Dependent (HCC) Expected: 08/01/2023 (Approximate), Expires: 10/31/2024 documented as of this encounter Visit Diagnoses Diagnosis Chronic Kidney Disease Stage 5 GFR Less Than 15 Dialysis Dependent (HCC)- Primary documented in this encounter Care Teams Drainlayer Relationship Specialty Start Date End Date None Reported, Pcp PCP - General Family Medicine 03/10/23 documented as of this encounter
--- OUTSIDE RECORDS SUMMARY | 2023-11-06 21:11 | XMS_ITS | Encounter Summary ---
Author Organization [facility] Address [address] [place] [address] Care Team Providers Care Special Education Paraprofessional Name Role Phone None Reported, Pcp Primary Care Provider Unavail able Encounter Details Date Type Department Care Team (Late st Contact Info) Description 09/24/2023 Episode Changes Transplant Center in [place], [place] [address] [place] [phone] Shonda Florence Social History Tobacco Use Types Packs/Day Years Used Date Smoking Tobacco: Never Smokeless Tobacco: Never Alcohol Use Standard Drinks/Week Comments Never 0 (1 standard drink = 0.6 oz pur e alcohol) [facility] Utilities Answer Date Recorded In the past 12 months has e electric, gas, oil, or water [employer] threatened to shut off services in your [...] your living situation today? 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 [address] [place] [phone] Discharge Disposition: Home or Self Care 11/27/2023 10:30 AM CDT Nurse Only Division of Nephrology and Hypertension in [place], [place] [address] [place] [address] Jo Root M.D., Ph.D. [address] [place] [phone] 11/27/2023 1:00 PM CDT Comprehensive Visit Division of Vascular and Endovascular Surgery in [place], [place] [address] [place] [phone] Jo Root M.D., Ph.D. [address] [place] [phone] documented as of this encounter Visit Diagnoses Not on filedocumented in this encounter Care Teams Special Education Paraprofessional Relationship Specialty Start Date End Date None Reported, Pcp PCP - General Family Medicine 03/10/23 documented as of this encounter
--- OUTSIDE RECORDS SUMMARY | 2023-11-06 21:11 | XMS_ITS ---
Author Organization [facility] Address [address] [place] [address] Care Team Providers Care Pcas Name Role Phone None Reported, Pcp Primary Care Provider Unavail able Transplant Episode Kidney Candidate [facility] [place] ([place], [place]) - [facility] Referred on 09/10/2023 Marked as Active on 09/10/2023 Kidney CoordinatorDekiara Sims R.N., C.C.T.C. Phone: N/A Fax: N/A Email: N/A Scores Score Value Updated Exceptions/Reas ons CPRA Not available EPTS (Calc) 14 11/06/2023 Care Team Name Role Phone Fax Email Criss Sims R.N., C.C.T.C. Kidney Coordinator N/A N/A N/A Jo Berg M.D., Ph.D. Referring Provider [phone] [email or web address] Pre-Transplant Referred: 09/10/2023 Dialysis History Dialysis History Start End Type [facility] Information Center Phone Fax Address [facility] [phone] [place] [address]
--- OUTSIDE RECORDS SUMMARY | 2023-11-06 21:11 | XMS_ITS | Encounter Summary ---
Author Organization [facility] Address [address] [place] [address] Care Team Providers Care Molder Bench Name Role Phone None Reported, Pcp Primary Care Provider Unavail able Encounter Details Date Type Department Care Team (Late st Contact Info) Description 07/25/2023 Orders Only Division of Nephrology and Hypertension, [facility], in [place], [place] [address] [place] [phone] Nicholas Tracey, GLUCOSE AND SYRUP WEIGHER, C.N.P., M.S.N. [address] [place] [phone] Social History Tobacco Use Types Packs/Day Years Used Date Smoking Tobacco: Never Smokeless Tobacco: Never Alcohol Use Standard Drinks/Week Comments Never 0 (1 standard drink = 0.6 oz pur e alcohol) [facility] Utilities Answer Date Recorded In the past 12 months has th e electric, gas, oil, or water [employer] threatened to shut off [...] your living situation today? I have a [facility] place to live 03/13/2023 Sex and Gender Information Value Date Recorded Sex Assigned at Female 03/13/2023 1:38 PM SCRAP CUTTER Gender Identity Female 03/13/2023 1:42 PM SCRAP CUTTER Sexual Orientation Straight 03/13/2023 1: 42 PM SCRAP CUTTER documented as of this encounter Plan of Treatment Upcoming Encounters Date Type Department Care Team (Latest Contact Info) Description 11/27/2023 8:30 AM CDT Appointment Department of Radiology, [facility], in [place], [place] [address] [place] [address] Jo Root M.D., Ph.D. [address] [place] [phone] Discharge Disposition: Home or Self Care 11/27/2023 10:30 AM CDT Nurse Only Division of Nephrology and Hypertension in [place], [place] [address] [place] [address] Jo Root M.D., Ph.D. [address] [place] [phone] 11/27/2023 1:00 PM CDT Comprehensive Visit Division of Vascular and Endovascular Surgery in [place], [place] [address] [place] [address] Jo Root M.D., Ph.D. [address] [place] [phone] documented as of this encounter Visit Diagnoses Not on filedocumented in this encounter Care Teams Molder Bench Relationship Specialty Start Date End Date None Reported, Pcp PCP - General Family Medicine 03/10/23 documented as of this encounter
--- OUTSIDE RECORDS SUMMARY | 2023-11-06 21:11 | XMS_ITS | Encounter Summary ---
Author Organization [facility] Address [address] [place] [address] Care Team Providers Care Cook Railroad Name Role Phone None Reported, Pcp Primary Care Provider Unavail able Encounter Details Date Type Department Care Team (Late st Contact Info) Description 09/19/2023 Episode Changes Division of Nephrology and Hypertension in [place], [place] [address] [place] [phone] Jo Root M.D., Ph.D. [address] [place] [phone] Social History Tobacco Use Types Packs/Day Years Used Date Smoking Tobacco: Never Smokeless Tobacco: Never Alcohol Use Standard Drinks/Week Comments Never 0 (1 standard drink = 0.6 oz pur e alcohol) [facility] Utilities Answer Date Recorded In the past 12 months has th e [employer], gas, oil, or water [employer] threatened to shut off services in your [...] your living situation today? I have a [facility] place to live 03/13/2023 Sex and Gender Information Value Date Recorded Sex Assigned at Female 03/13/2023 1:38 PM DEVOPS ARCHITECT Gender Identity Female 03/13/2023 1:42 PM DEVOPS ARCHITECT Sexual Orientation Straight 03/13/2023 1: 42 PM DEVOPS ARCHITECT documented as of this encounter Plan of Treatment Upcoming Encounters Date Type Department Care Team (Latest Contact Info) Description 11/27/2023 8:30 AM CDT Appointment Department of Radiology, [facility], in [place], [place] [address] [place] [address] Jo Root M.D., Ph.D. [address] [place] [phone] Discharge Disposition: Home or Self Care 11/27/2023 10:30 AM CDT Nurse Only Division of Nephrology and Hypertension in [place], [place] [address] [place] [phone] Jo Root M.D., Ph.D. [address] [place] [phone] 11/27/2023 1:00 PM CDT Comprehensive Visit Division of Vascular and Endovascular Surgery in [place], [place] [address] [place] [phone] Jo Root M.D., Ph.D. [address] [place] [phone] documented as of this encounter Visit Diagnoses Not on filedocumented in this encounter Care Teams Cook Railroad Relationship Specialty Start Date End Date None Reported, Pcp PCP - General Family Medicine 03/10/23 documented as of this encounter
--- OUTSIDE RECORDS SUMMARY | 2023-11-06 21:11 | XMS_ITS | Encounter Summary ---
Author Organization [facility] Address [address] [place] [address] Care Team Providers Care Lard Tub Washer Name Role Phone None Reported, Pcp Primary Care Provider Unavail able Encounter Details Date Type Department Care Team (Late st Contact Info) Description 08/04/2023 Clinical Communication Division of Nephrology and Hypertension in [place], [place] [address] [place] [phone] Jo Root M.D., Ph.D. [address] [place] [phone] Social History Tobacco Use Types Packs/Day Years Used Date Smoking Tobacco: Never Smokeless Tobacco: Never Alcohol Use Standard Drinks/Week Comments Never 0 (1 standard drink = 0.6 oz pur e alcohol) [facility] Utilities Answer Date Recorded In the past 12 months has th e [employer], gas, oil, or water [employer] threatened to shut off services in your [...] Date Recorded Dental: Regular Dentist No 03/13/19 24 Employment Answer Date Recorded Employment status Employed and actively working without restrictions 03/13/2023 Housing Stability Answer Date Recorded What is your living situation today? I have a [facility] place to live 03/13/2023 Sex and Gender Information Value Date Recorded Sex Assigned at Female 03/13/2023 1:38 PM RETOUCHER Gender Identity Female 03/13/2023 1:42 PM RETOUCHER Sexual Orientation Straight 03/13/2023 1: 42 PM RETOUCHER documented as of this encounter Miscellaneous Notes * Telephone Encounter - Jo Root M.D., Ph.D. - 08/04/2023 10:40 AM CDT Patient has been evaluated during dialysis at [facility]. She presents a pruritic rash, she states that it started about a month ago. It is very pruritic, especially at nighttime. It presents a small papules, and due to constant itchiness she has excoriations. She had tried topical creams with no relief. I have referred her to Dermatology for further evaluation. Hodan Berg M.D., Ph.D. documented in this encounter Plan of Treatment Upcoming Encounters Date Type Department Care Team (Latest Contact Info) Description 11/27/2023 8:30 AM CDT Appointment Department of Radiology, [facility], in [place], [place] [address] [place] [address] Jo Root M.D., Ph.D. [address] [place] [address] Discharge Disposition: Home or Self Care 11/27/2023 10:30 AM CDT Nurse Only Division of Nephrology and Hypertension in [place], [place] [address] [place] [address] Jo Root M.D., Ph.D. [address] [place] [address] 11/27/2023 1:00 PM CDT Comprehensive Visit Division of Vascular and Endovascular Surgery in [place], [place] [address] [place] [address] Jo Root M.D., Ph.D. [address] [place] [phone] documented as of this encounter Visit Diagnoses Not on filedocumented in this encounter Care Teams Lard Tub Washer Relationship Specialty Start Date End Date None Reported, Pcp PCP - General Family Medicine 03/10/23 documented as of this encounter
--- OUTSIDE RECORDS SUMMARY | 2023-11-06 21:11 | XMS_ITS | Encounter Summary ---
Author Organization [facility] Address [address] [place] [address] Care Team Providers Care Benzene Washer Name Role Phone None Reported, Pcp Primary Care Provider Unavail able Reason for Visit * Reason Comments NEDRA (acute kidney injury) Encounter Details Date Type Department Care Team ([facility] st Contact Info) Description 10/17/2023 Documentation Division of Nephrology and Hypertension, [facility], in [place], [place] [address] [place] [address] Melly Goldstein R.N. [address] [place] [address] NEDRA (acute kidney injury) Social History Tobacco Use Types Packs/Day Years Used Date Smoking Tobacco: Never Smokeless Tobacco: Never Alcohol Use Standard Drinks/Week Comments Never 0 (1 standard drink = 0.6 oz pur e alcohol) [facility] Utilities Answer Date Recorded In the past 12 months has e [employer], gas, oil, or water [employer] threatened to shut off services in your [...] living situation today? I have a [facility] place to live 03/13/2023 Sex and Gender Information Value Date Recorded Sex Assigned at Female 03/13/2023 1:38 PM CELERY CUTTER Gender Identity Female 03/13/2023 1:42 PM CELERY CUTTER Sexual Orientation Straight 03/13/2023 1: 42 PM CELERY CUTTER documented as of this encounter Progress Notes * Melly Goldstein RJanis. - 10/17/2023 9:41 AM CDT Encounter created in error documented in this encounter Plan of Treatment Upcoming Encounters Date Type Department Care Team (Latest Contact Info) Description 11/27/2023 8:30 AM CDT Appointment Department of Radiology, [facility], in [place], [place] [address] [place] [address] Jo Root M.D., Ph.D. [address] [place] [phone] Discharge Disposition: Home or Self Care 11/27/2023 10:30 AM CDT Nurse Only Division of Nephrology and Hypertension in [place], [place] [address] [place] [address] Jo Root M.D., Ph.D. [address] [place] [phone] 11/27/2023 1:00 PM CDT Comprehensive Visit Division of Vascular and Endovascular Surgery in [place], [place] [address] [place] [address] Jo Root M.D., Ph.D. [address] [place] [address] documented as of this encounter Visit Diagnoses Not on filedocumented in this encounter Care Teams Benzene Washer Relationship Specialty Start Date End Date None Reported, Pcp PCP - General Family Medicine 03/10/23 documented as of this encounter
--- OUTSIDE RECORDS SUMMARY | 2023-11-06 21:11 | XMS_ITS ---
Author Organization [facility] Address [address] [place] [address] Care Team Providers Care Unit Aide Name Role Phone Unavailable Unavailable Unavailable Surgery Details Not on file Complications Check Surgery Details section. Procedure Estimated Blood Loss Check Surgery Details section. Procedure Findings Check Surgery Details section. Procedure Specimens Taken Check Surgery Details section.
--- OUTSIDE RECORDS SUMMARY | 2023-11-06 21:11 | XMS_ITS | Encounter Summary ---
Author Organization [facility] Address [address] [place] [address] Care Team Providers Care Construction Ironworker Helper Name Role Phone None Reported, Pcp Primary Care Provider Unavail able Encounter Details Date Type Department Care Team (Late st Contact Info) Description 10/08/2023 Documentation Division of Nephrology and Hypertension in [place], [place] [address] [place] [address] Rosanna Serrato, RJanieNJanie [address] [place] [address] Social History Tobacco Use Types Packs/Day Years Used Date Smoking Tobacco: Never Smokeless Tobacco: Never Alcohol Use Standard Drinks/Week Comments Never 0 (1 standard drink = 0.6 oz pur e alcohol) [facility] Utilities Answer Date Recorded In the past 12 months has e electric, gas, oil, or water [employer] threatened to shut off services in your [...] Sex Assigned at Female 03/13/2023 1:38 PM TOP LIFT SCOURER Gender Identity Female 03/13/2023 1:42 PM TOP LIFT SCOURER Sexual Orientation Straight 03/13/2023 1: 42 PM TOP LIFT SCOURER documented as of this encounter Progress Notes * Rosanna Serrato RJanis. - 10/08/2023 3:33 PM CDT Patient scheduled for a dialysis tunneled catheter exchange for tomorrow, 10/09/23.Patient is to report at 11:30 to [facility], Main floor, anibal Davison MD. 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 Patient is diet controlled diabetic. She is not on any anticoagulation. Patient will dialyze at [facility] post catheter replacement. Her normal dialysis days are //. She had some dialysis yesterday. All discussion with the patient via the systems integration analyst # [id number]. documented in this encounter Plan of Treatment Upcoming Encounters Date Type Department Care Team (Latest Contact Info) Description 11/27/2023 8:30 AM CDT Appointment Department of Radiology, [facility], in [place], [place] [address] [place] [address] Jo Root M.D., Ph.D. [address] [place] [address] Discharge Disposition: Home or Self Care 11/27/2023 10:30 AM CDT Nurse Only Division of Nephrology and Hypertension in [place], [place] [address] [place] [address] Jo Root M.D., Ph.D. [address] [place] [phone] 11/27/2023 1:00 PM CDT Comprehensive Visit Division of Vascular and Endovascular Surgery in [place], [place] [address] [place] [address] Jo Root M.D., Ph.D. [address] [place] [phone] documented as of this encounter Visit Diagnoses Not on filedocumented in this encounter Care Teams Construction Ironworker Helper Relationship Specialty Start Date End Date None Reported, Pcp PCP - General Family Medicine 03/10/23 documented as of this encounter
--- OUTSIDE RECORDS SUMMARY | 2023-11-06 21:11 | XMS_ITS | Referral Summary ---
Author Organization [facility] Address [address] [place] [address] Care Team Providers Care Scrape Gatherer Name Role Phone None Reported, Pcp Primary Care Provider Unavail able Source Comments Patient records contain information from all sites at [facility]. For routine questions regarding patient records, call [phone] during business hours, M-F 8:00 AM - 5:00 PM Central Time. Record requests for emergency care only can be directed to [phone] at any time.[facility] Encounters Date Type Department Care Team Description 10/17/2023 Documentation Division of Nephrology and Hypertension, [facility], in [place], [place] [address] [place] [address] Melly Goldstein RJanis. NEDRA (acute kidney injury) 10/13/2023 Orders Only Division of Nephrology and Hypertension, [facility], in [place], [place] [address] [place] [address] Nicholas Tracey APRN, C.N.P., M.S.N. 10/09/2023 12:17 PM CDT - 10/09/2023 3:11 PM CDT Hospital Encounter Department of Radiology in [place], [place] [address] [place] [address] Yin Garcia APRN, C.N.P., D.N.P. Emigdio Colon M.D. Hemodialysis Status (HCC) Discharge Disposition: Home or Self Care 10/08/2023 Documentation Division of Nephrology and Hypertension in [place], [place] [address] [place] [address] Rosanna Serrato R.N. 10/08/2023 Orders Only Division of Nephrology and Hypertension in [place], [place] [address] [place] [address] Yin Garcia APRN, C.N.P., D.N.P. Hemodialysis Status (HCC) (Primary Dx) 09/24/2023 Episode Changes Transplant Center in [place], [place] [address] [place] [phone] Shonda Florence Nito 09/19/2023 Episode Changes Division of Nephrology and Hypertension in [place], [place] [address] [place] [address] Jo Root M.D., Ph.D. 08/06/2023 Orders Only Division of Nephrology and Hypertension, [facility], in [place], [place] [address] [place] [address] Nicholas Tracey APRN C.N.P., M.S.N. Trigger Finger Middle Right (Primary Dx) from Last 3 Months Allergies No known active allergies Medications Medication [...] Failure Renal Acute (Acute Kidney Injury) 2023 Immunizations Name Administration Dates Next Due DTaP ([employer], [employer]) 03/08/2009 Influenza, Unspecified 11/27/2009,11/17/2008 Social History Tobacco Use Types Packs/Day Years Used Date Smoking Tobacco: Never Smokeless Tobacco: Never Tobacco Cessation:Counseling Given: Not Answered Alcohol Use Standard Drinks/Week Comments Never 0 (1 standard drink = 0.6 oz pur e alcohol) [facility] Utilities Answer Date Recorded In the past 12 months has th e [employer], gas, oil, or water [employer] threatened to shut off services in your [...] your living situation today? I have a [facility] place to live 03/13/2023 Sex and Gender Information Value Date Recorded Sex Assigned at Female 03/13/2023 1:38 PM VESSEL ORDINARY SEAMAN Gender Identity Female 03/13/2023 1:42 PM VESSEL ORDINARY SEAMAN Sexual Orientation Straight 03/13/2023 1: 42 PM VESSEL ORDINARY SEAMAN Last Filed Vital Signs Vital Sign Reading [...] Body Mass Index 44.76 03/13/2023 11:03 AM VESSEL ORDINARY SEAMAN Plan of Treatment Upcoming Encounters Date Type Department Care Team (Latest Contact Info) Description 11/27/2023 8:30 AM CDT Appointment Department of Radiology, [facility], in [place], [place] [address] [place] [address] Jo Root M.D., Ph.D. [address] [place] [address] Discharge Disposition: Home or Self Care 11/27/2023 10:30 AM CDT Nurse Only Division of Nephrology and Hypertension in [place], [place] [address] [place] [address] Jo Root M.D., Ph.D. [address] [place] [phone] 11/27/2023 1:00 PM CDT Comprehensive Visit Division of Vascular and Endovascular Surgery in [place], [place] [address] [place] [address] Jo Root M.D., Ph.D. [address] [place] [address] Procedures Procedure Name Priority Date/Time Associated Diagnosis Comments IR DIALYSIS / HIGH FLOW CATHETER EXCHANGE RAD - Routine (most inpatients and all outpatients) 10/09/2023 2:12 PM CDT Hemodialysis Status (HCC) RENAL FUNCTION PANEL, S Routine 04/08/2023 12:39 PM VESSEL ORDINARY SEAMAN Failure Renal Acute (Acute Kidney Injury) (HCC) [...] catheter were prepped and draped sterilely. A vamp seamer view showed the tip of the catheter [...] obtained from the patient via in person superannuation funds manager.. Immediately prior to starting the procedure, in [...] dialysis catheter were prepped anddraped sterilely. A vamp seamer view showed the tip of the catheter [...] consent obtained from thepatient via in person superannuation funds manager.. Immediately prior tostarting the procedure, in the [...] (ABNORMAL) Renal Function Panel (04/08/2023 12:39 PM VESSEL ORDINARY SEAMAN) Potassium, S 5.0 3.6 - 5.2 mmol/L 04/08/2023 2:11 PM VESSEL ORDINARY SEAMAN DTL Sodium, S 139 135 - 145 mmol/L 04/08/2023 2:11 PM VESSEL ORDINARY SEAMAN DTL Chloride, S 108(H) 98 - 107 mmol/L 04/08/2023 2:11 PM VESSEL ORDINARY SEAMAN DTL Bicarbonate, S 18(L) 22 - 29 mmol/L 04/08/2023 2:11 PM VESSEL ORDINARY SEAMAN DTL Anion Gap 13 7 - 15 04/08/2023 2:11 PM VESSEL ORDINARY SEAMAN DTL BUN (Blood Urea Nitrogen), S 71(H) 6 - 21 mg/dL 04/08/2023 2:11 PM VESSEL ORDINARY SEAMAN DTL Creatinine 4.41(H) 0.59 - 1.04 mg/dL 04/08/2023 2:11 PM VESSEL ORDINARY SEAMAN DTL Estimated GFR (eGFR) <15(L) >=60 mL/min/BSA 04/08/2023 2:11 PM VESSEL ORDINARY SEAMAN DTL Comment: Estimated GFR calculated using the 2020 CKD_EPI creatinine equation. Calcium, Total, S 8.8 8.6 - 10.0 mg/dL 04/08/2023 2:11 PM VESSEL ORDINARY SEAMAN DTL Glucose, S 103 70 - 140 mg/dL 04/08/2023 2:11 PM VESSEL ORDINARY SEAMAN DTL Albumin, S 4.0 3.5 - 5.0 g/dL 04/08/2023 2:11 PM VESSEL ORDINARY SEAMAN DTL Phosphorus (Inorganic), S 4.9(H) 2.5 - 4.5 mg/dL 04/08/2023 2:11 PM VESSEL ORDINARY SEAMAN DTL Blood (Blood, Venous) 04/08/2023 12:39 PM VESSEL ORDINARY SEAMAN 04/08/2023 1:34 PM VESSEL ORDINARY SEAMAN Yin Garcia APRN, C.N.P., D.N.P. LAB BLOOD ADD-ON [facility] [address] [place] [address], [facility] DTL [facility] [address] [place] [address] from Last 3 Months or Most Recently Relevant to Health Maintenance Advance Directives For more information, please contact: [phone] * Full Code (Latest Code Status on File) Date Activated Date Inactivated Comments 10/09/2023 1:45 PM Question Answer Comments Full Code: Not Discussed Due to: Patient not available * Full Code Date Activated Date Inactivated Comments 03/17/2023 12:45 PM 03/17/2023 5:05 PM Question Answer Comments Full Code: Not Discussed Due to: Not medically appropriate Care Teams Scrape Gatherer Relationship Specialty Start Date End Date None Reported, Pcp PCP - General Family Medicine 03/10/23
--- OUTSIDE RECORDS SUMMARY | 2023-11-06 21:11 | XMS_ITS ---
Author Organization [facility] Address [address] [place] [address] Care Team Providers Care Chemical Educator Name Role Phone None Reported, Pcp Primary Care Provider Unavail able Kidney Side Framer Program Status:Closed (Closed) Start date:03/13/2023 Enrollment date:03/13/2023 Enrollment reason:Referred by provider End date:11/04/2023 Close reason:Transition to In-center Dialysis Continued Care and Services Coordination
--- OUTSIDE RECORDS SUMMARY | 2023-11-06 21:11 | XMS_ITS | Encounter Summary ---
Author Organization [facility] Address [address] [place] [address] Care Team Providers Care Warranty Clerk Name Role Phone None Reported, Pcp Primary Care Provider Unavail able Encounter Details Date Type Department Care Team (Late st Contact Info) Description 10/13/2023 Orders Only Division of Nephrology and Hypertension, [facility], in [place], [place] [address] [place] [phone] Nicholas Tracey, HEALTH POLICY ANALYST, C.N.P., M.S.N. [address] [place] [phone] Social History Tobacco Use Types Packs/Day Years Used Date Smoking Tobacco: Never Smokeless Tobacco: Never Alcohol Use Standard Drinks/Week Comments Never 0 (1 standard drink = 0.6 oz pur e alcohol) [facility] Utilities Answer Date Recorded In the past 12 months has th e electric, gas, oil, or water [employer] threatened to shut off services in your [...] your living situation today? I have a [facility] place to live 03/13/2023 Sex and Gender Information Value Date Recorded Sex Assigned at Female 03/13/2023 1:38 PM SUPERVISOR TILE AND MOTTLE Gender Identity Female 03/13/2023 1:42 PM SUPERVISOR TILE AND MOTTLE Sexual Orientation Straight 03/13/2023 1: 42 PM SUPERVISOR TILE AND MOTTLE documented as of this encounter Plan of Treatment Upcoming Encounters Date Type Department Care Team (Latest Contact Info) Description 11/27/2023 8:30 AM CDT Appointment Department of Radiology, [facility], in [place], [place] [address] [place] [address] Jo Root M.D., Ph.D. [address] [place] [phone] Discharge Disposition: Home or Self Care 11/27/2023 10:30 AM CDT Nurse Only Division of Nephrology and Hypertension in [place], [place] [address] [place] [address] Jo Root M.D., Ph.D. [address] [place] [phone] 11/27/2023 1:00 PM CDT Comprehensive Visit Division of Vascular and Endovascular Surgery in [place], [place] [address] [place] [address] Jo Root M.D., Ph.D. [address] [place] [phone] documented as of this encounter Visit Diagnoses Not on filedocumented in this encounter Care Teams Warranty Clerk Relationship Specialty Start Date End Date None Reported, Pcp PCP - General Family Medicine 03/10/23 documented as of this encounter
[2023-11-06 21:14] LABS: Basophils Percent Auto 0.1 % (0.0-3.0); Eosinophils Percent Auto 0.4 % (0.0-7.0); Hematocrit 35.9 % (33.0-51.0); Hemoglobin* 12.3 gm/dL (12.0-16.0); Immature Granulocytes Pct Auto 0.3 %; Lymphocytes Percent Auto 3.3 % (20-44); Mean Corpuscular HGB Conc 34 gm/dL (32-36); Mean Corpuscular Hemoglobin 32 pg (26-34); Mean Corpuscular Volume 94 fL (80-100); Monocytes Percent Auto 2.6 % (0.0-11.0); Neutrophils Percent Auto 93.3 % (42.0-72.0); Platelet Count* 153 K/uL (140-440); RDW Coefficient of Variation % 14.5 % (11.5-15.5); Red Blood Count 3.83 m/uL (4.00-5.20); White Blood Count* 18.31 K/uL (4.50-11.00)
[2023-11-06 21:16] LABS: Slide Review Reflex No
[2023-11-06 21:33] LABS: Chloride* 96 mmol/L (96-114); Sodium* 131 mmol/L (135-149)
[2023-11-06 21:34] LABS: Potassium* 4.1 mmol/L (3.6-5.1)
[2023-11-06 21:36] LABS: Alkaline Phosphatase* 323 U/L (40-150); Anion Gap 17 mEq/L (7-15); Aspartate Amino Transferase* 286 U/L (12-35); Bilirubin Total* 1.8 mg/dL (0.1-1.5); Blood Urea Nitrogen* 58 mg/dL (5-24); Carbon Dioxide* 18 mmol/L (20-32); Creatinine* 7.1 mg/dL (0.5-1.5); Est. Creatinine Clearance* 6.96; Estimated Glomerular Filt Rate 7 ml/min; Total Protein* 8.8 g/dL (6.0-8.3)
[2023-11-06 21:37] LABS: Alanine Aminotransferase* 30 U/L (4-35); Calcium* 8.3 mg/dL (8.4-10.6); Glucose* 154 mg/dL (60-115)
[2023-11-06 21:41] LABS: PCR FLU A Negative PCR FLU A (Negative); PCR FLU B Negative PCR FLU B (Negative); PCR RSV Negative PCR RSV (Negative); SARS PCR* Negative SARS-CoV-2 (Negative)
[2023-11-06 21:53] LABS: Procalcitonin* 0.95 ng/mL (<0.50)
[2023-11-06 21:55] LABS: C Reactive Protein* < 0.5 mg/dL (0.5-1.0)
[2023-11-06 22:08] VITALS: PULSE 119; O2SAT 95
[2023-11-06 22:15] VITALS: PULSE 121; O2SAT 94
[2023-11-06 22:28] VITALS: TEMP 37.8
[2023-11-06 22:38] LABS: Appearance Urine Clear (Clear); Bilirubin Urine 1+ (Negative); Blood Urine Trace-lysed (Negative); Color Urine Yellow (Yellow); Glucose Urine Negative (Negative); Ketones Urine Trace (Negative); Leukocyte Esterase Urine Negative (Negative); Nitrite Urine Negative (Negative); Protein Urine 2+ (Negative); Urobilinogen Urine 0.2 (0.2-1.0)
[2023-11-06 22:40] LABS: Bacteria Urine Few; RBC Urine 0-2 (0-2); Squamous Epithelial Cell Urine Few (None-Few); WBC Urine 0-2 (0-5)
[2023-11-06 23:51] VITALS: BP 137/73; PULSE 109; RESP 22; TEMP 37.3; O2SAT 96
--- NOTE | 2023-11-07 08:36 | ED.NURSE ---
Lab called with critical result of positive blood cultures. Reviewed with Dr. Yang. Dr. Yang suggested that patient come back to the ED to be re-evaluated. Dina, Voip Network Technician contacted and will contact patient to come back into the ED to be re-evaluated.
== END 2023-11-07 00:04 | disposition home or self-care (01) ==
PROVIDERS: Emergency Provider Internal Medicine; PCP Internal Medicine
DX: R50.9 Fever, unspecified (principal)
CPT/HCPCS: 36415; 71045; 80053; 81001; 81003; 83605; 84100; 84145; 85025; 86140; 87040; 87086; 87186; 87624; 87631; 88141; 88142; 99283; A9270; J7030

== ENCOUNTER 2023-11-07 10:33 | Emergency (ER) | payer MEDICAID, SELFPAY ==
[2023-11-07] VITALS (38 sets, daily range): BP systolic 66–150; BP diastolic 44–94; PULSE 97–124; RESP 18–20; TEMP 36.9–37.8; O2SAT 92–99; BMI 44.9
--- OUTSIDE RECORDS SUMMARY | 2023-11-07 10:36 | XMS_ITS ---
Author Organization [facility] Address [address] [place] [address] Care Team Providers Care Chemical Laboratory Technician Name Role Phone Unavailable Unavailable Unavailable Surgery Details Not on file Complications Check Surgery Details section. Procedure Estimated Blood Loss Check Surgery Details section. Procedure Findings Check Surgery Details section. Procedure Specimens Taken Check Surgery Details section.
--- OUTSIDE RECORDS SUMMARY | 2023-11-07 10:36 | XMS_ITS | Encounter Summary ---
Author Organization [facility] Address [address] [place] [address] Care Team Providers Care Manager Business Intelligence Name Role Phone None Reported, Pcp Primary Care Provider Unavail able Encounter Details Date Type Department Care Team (Late st Contact Info) Description 11/07/2023 Clinical Communication Division of Nephrology and Hypertension in [place], [place] [address] [place] [phone] Jo Root M.D., Ph.D. [address] [place] [phone] Social History Tobacco Use Types Packs/Day Years Used Date Smoking Tobacco: Never Smokeless Tobacco: Never Alcohol Use Standard Drinks/Week Comments Never 0 (1 standard drink = 0.6 oz pur e alcohol) [facility] Utilities Answer Date Recorded In the past 12 months has th e [employer], gas, oil, or water [employer] threatened to shut off services in your [...] your living situation today? I have a [facility] place to live 03/13/2023 Sex and Gender Information Value Date Recorded Sex Assigned at Female 03/13/2023 1:38 PM FORESTRY SUPPORT SPECIALIST Gender Identity Female 03/13/2023 1:42 PM FORESTRY SUPPORT SPECIALIST Sexual Orientation Straight 03/13/2023 1: 42 PM FORESTRY SUPPORT SPECIALIST documented as of this encounter Miscellaneous Notes * Telephone Encounter - Jo Root M.D., Ph.D. - 11/07/2023 9:33 AM CDT I have contacted patient this morning. She is a hemodialysis patient at [facility] on a Friday schedule via hemodialysis catheter, last exchanged on 10/09/2023. Her last dialysis was Friday (11/04) and it was uneventful. She went to the ED at [facility] yesterday (), she had a fever of 104 F and her WBC were 18,000. She had blood and urine cultures collected.She went home overnight. She was called in by the [facility] ED as her blood cultures are positive for Gram positive cocci and her urine grew Klebsiella. She was recommended to go back to the ED at [place] or to go directly to [facility] as she is due for dialysis today. Patient does not feel well enough to travel by car by herself to [place], and she plans to go to the ED in [place], to then be transferred to [place] for treatment of sepsis and dialysis needs. I have contacted [facility] for awareness. Hodan Berg M.D., Ph.D. documented in this encounter Plan of Treatment Upcoming Encounters Date Type Department Care Team (Latest Contact Info) Description 11/27/2023 8:30 AM CDT Appointment Department of Radiology, [facility], in [place], [place] [address] [place] [phone] Jo Root M.D., Ph.D. [address] [place] [phone] Discharge Disposition: Home or Self Care 11/27/2023 10:30 AM CDT Nurse Only Division of Nephrology and Hypertension in [place], [place] [address] [place] [phone] Jo Root M.D., Ph.D. [address] [place] [phone] 11/27/2023 1:00 PM CDT Comprehensive Visit Division of Vascular and Endovascular Surgery in [place], [place] [address] [place] [phone] Jo Root M.D., Ph.D. [address] [place] [phone] documented as of this encounter Visit Diagnoses Not on filedocumented in this encounter Care Teams Manager Business Intelligence Relationship Specialty Start Date End Date None Reported, Pcp PCP - General Family Medicine 03/10/23 documented as of this encounter
--- OUTSIDE RECORDS SUMMARY | 2023-11-07 10:36 | XMS_ITS | Referral Summary ---
Author Organization [facility] Address [address] [place] [address] Care Team Providers Care Tool Grinding Technician Name Role Phone No Ref-Primary, Physician Primary [...] of Treatment Not on file Care Teams Tool Grinding Technician Relationship Specialty Start Date End Date No Ref-Primary, Physician PCP - General 05/25/21
--- OUTSIDE RECORDS SUMMARY | 2023-11-07 10:36 | XMS_ITS | Referral Summary ---
Author Organization [facility] Address [address] [place] [address] Care Team Providers Care Dairy Store Manager Name Role Phone None Reported, Pcp Primary Care Provider Unavail able Source Comments Patient records contain information from all sites at [facility]. For routine questions regarding patient records, call [phone] during business hours, M-F 8:00 AM - 5:00 PM Central Time. Record requests for emergency care only can be directed to [phone] at any time.[facility] Encounters Date Type Department Care Team Description 11/07/2023 Clinical Communication Division of Nephrology and Hypertension in [place], [place] [address] [place] [address] Jo Root M.D., Ph.D. 10/17/2023 Documentation Division of Nephrology and Hypertension, [facility], in [place], [place] [address] [place] [phone] Melly Goldstein, RJanis. NEDRA (acute kidney injury) 10/13/2023 Orders Only Division of Nephrology and Hypertension, [facility], in [place], [place] [address] [place] [phone] Nicholas Tracey APRN, C.N.P., M.S.N. 10/09/2023 12:17 PM CDT - 10/09/2023 3:11 PM CDT Hospital Encounter Department of Radiology in [place], [place] [address] [place] [address] Yin Garcia APRN, C.N.P., D.N.P. [place], Emigdio H, M.D. Hemodialysis Status (HCC) Discharge Disposition: Home or Self Care 10/08/2023 Documentation Division of Nephrology and Hypertension in [place], [place] [address] [place] [address] Rosanna Serrato, RJanis. 10/08/2023 Orders Only Division of Nephrology and Hypertension in [place], [place] [address] [place] [address] Yin Garcia APRN, C.N.P., D.N.P. Hemodialysis Status (HCC) (Primary Dx) 09/24/2023 Episode Changes Transplant Center in [place], [place] [address] [place] [phone] Shonda Florence 09/19/2023 Episode Changes Division of Nephrology and Hypertension in [place], [place] [address] [place] [address] Jo Root M.D., Ph.D. from Last 3 Months Allergies No known [...] 0.6 oz pur e alcohol) [facility] Utilities Answer Date Recorded In the past 12 months has e [employer], gas, oil, or water [employer] threatened to shut off services in your [...] your living situation today? I have a [facility] place to live 03/13/2023 Sex and Gender Information Value Date Recorded Sex Assigned at Female 03/13/2023 1:38 PM GUITAR TEACHER Gender Identity Female 03/13/2023 1:42 PM GUITAR TEACHER Sexual Orientation Straight 03/13/2023 1: 42 PM GUITAR TEACHER Last Filed Vital Signs Vital Sign Reading [...] Body Mass Index 44.76 03/13/2023 11:03 AM GUITAR TEACHER Plan of Treatment Upcoming Encounters Date Type Department Care Team (Latest Contact Info) Description 11/27/2023 8:30 AM CDT Appointment Department of Radiology, [facility], in [place], [place] [address] [place] [address] Jo Root M.D., Ph.D. [address] [place] [phone] Discharge Disposition: Home or Self Care 11/27/2023 10:30 AM CDT Nurse Only Division of Nephrology and Hypertension in [place], [place] [address] [place] [phone] Jo Root M.D., Ph.D. [address] [place] [phone] 11/27/2023 1:00 PM CDT Comprehensive Visit Division of Vascular and Endovascular Surgery in [place], [place] [address] [place] [address] Jo Root M.D., Ph.D. [address] [place] [phone] Procedures Procedure Name Priority Date/Time Associated Diagnosis Comments IR DIALYSIS / HIGH FLOW CATHETER EXCHANGE RAD - Routine (most inpatients and all outpatients) 10/09/2023 2:12 PM CDT Hemodialysis Status (HCC) RENAL FUNCTION PANEL, S Routine 04/08/2023 12:39 PM GUITAR TEACHER Failure Renal Acute (Acute Kidney Injury) (HCC) [...] catheter were prepped and draped sterilely. A cook specialty view showed the tip of the catheter [...] obtained from the patient via in person lens mold setter.. Immediately prior to starting the procedure, in [...] dialysis catheter were prepped anddraped sterilely. A cook specialty view showed the tip of the catheter [...] consent obtained from thepatient via in person lens mold setter.. Immediately prior tostarting the procedure, in the [...] (ABNORMAL) Renal Function Panel (04/08/2023 12:39 PM GUITAR TEACHER) Potassium, S 5.0 3.6 - 5.2 mmol/L 04/08/2023 2:11 PM GUITAR TEACHER DTL Sodium, S 139 135 - 145 mmol/L 04/08/2023 2:11 PM GUITAR TEACHER DTL Chloride, S 108(H) 98 - 107 mmol/L 04/08/2023 2:11 PM GUITAR TEACHER DTL Bicarbonate, S 18(L) 22 - 29 mmol/L 04/08/2023 2:11 PM GUITAR TEACHER DTL Anion Gap 13 7 - 15 04/08/2023 2:11 PM GUITAR TEACHER DTL BUN (Blood Urea Nitrogen), S 71(H) 6 - 21 mg/dL 04/08/2023 2:11 PM GUITAR TEACHER DTL Creatinine 4.41(H) 0.59 - 1.04 mg/dL 04/08/2023 2:11 PM GUITAR TEACHER DTL Estimated GFR (eGFR) <15(L) >=60 mL/min/BSA 04/08/2023 2:11 PM GUITAR TEACHER DTL Comment: Estimated GFR calculated using the 2020 CKD_EPI creatinine equation. Calcium, Total, S 8.8 8.6 - 10.0 mg/dL 04/08/2023 2:11 PM GUITAR TEACHER DTL Glucose, S 103 70 - 140 mg/dL 04/08/2023 2:11 PM GUITAR TEACHER DTL Albumin, S 4.0 3.5 - 5.0 g/dL 04/08/2023 2:11 PM GUITAR TEACHER DTL Phosphorus (Inorganic), S 4.9(H) 2.5 - 4.5 mg/dL 04/08/2023 2:11 PM GUITAR TEACHER DTL Blood (Blood, Venous) 04/08/2023 12:39 PM GUITAR TEACHER 04/08/2023 1:34 PM GUITAR TEACHER Yin Garcia APRN, C.N.P., D.N.P. LAB BLOOD ADD-[facility] [address] [place] [address], [place] [facility] [address] [place] [address] from Last 3 Months or Most Recently Relevant to Health Maintenance Advance Directives For more information, please contact: [phone] * Full Code (Latest Code Status on File) Date Activated Date Inactivated Comments 10/09/2023 1:45 PM Question Answer Comments Full Code: Not Discussed Due to: Patient not available * Full Code Date Activated Date Inactivated Comments 03/17/2023 12:45 PM 03/17/2023 5:05 PM Question Answer Comments Full Code: Not Discussed Due to: Not medically appropriate Care Teams Dairy Store Manager Relationship Specialty Start Date End Date None Reported, Pcp PCP - General Family Medicine 03/10/23
--- OUTSIDE RECORDS SUMMARY | 2023-11-07 10:36 | XMS_ITS | Clinical Summary ---
Author Organization [facility] Address [address] [place] [address] Care Team Providers Care Group Cio Name Role Phone None Reported, Pcp Primary Care Provider Unavail able Source Comments Patient records contain information from all sites at [facility]. For routine questions regarding patient records, call [phone] during business hours, M-F 8:00 AM - 5:00 PM Central Time. Record requests for emergency care only can be directed to [phone] at any time.[facility] Allergies No known active allergies Medications Medication [...] Communication Division of Nephrology and Hypertension in [place], [place] [address] [place] [address] Jo Root M.D., Ph.D. 10/17/2023 Documentation Division of Nephrology and Hypertension, [facility], in [place], [place] [address] [place] [address] Melly Goldstein R.N. NEDRA (acute kidney injury) 10/13/2023 Orders Only Division of Nephrology and Hypertension, [facility], in [place], [place] [address] [place] [address] Nicholas Tracey, MAGY, C.N.P., M.S.N. 10/09/2023 12:17 PM CDT - 10/09/2023 3:11 PM CDT Hospital Encounter Department of Radiology in [place], [place] [address] [place] [address] Yin Garcia APRN, C.N.P., D.N.P. Emigdio Colon M.D. Hemodialysis Status (HCC) Discharge Disposition: Home or Self Care 10/08/2023 Documentation Division of Nephrology and Hypertension in [place], [place] [address] [place] [address] Rosanna Serrato, R.N. 10/08/2023 Orders Only Division of Nephrology and Hypertension in [place], [place] [address] [place] [phone] Yin Garcia APRN, C.N.P., D.N.P. Hemodialysis Status (HCC) (Primary Dx) 09/24/2023 Episode Changes Transplant Center in [place], [place] [address] [place] [address] Shonda Florence 09/19/2023 Episode Changes Division of Nephrology and Hypertension in [place], [place] [address] [place] [address] Jo Root M.D., Ph.D. from Last 3 Months Immunizations Name Administration Dates Next Due DTaP ([employer], [employer]) 03/08/2009 Influenza, Unspecified 11/27/2009,11/17/2008 Social History Tobacco Use Types Packs/Day Years Used Date Smoking Tobacco: Never Smokeless Tobacco: Never Tobacco Cessation:Counseling Given: Not Answered Alcohol Use Standard Drinks/Week Comments Never 0 (1 standard drink = 0.6 oz pur e alcohol) [facility] Utilities Answer Date Recorded In the past 12 months has e [employer], gas, oil, or water company threatened to [...] Sex Assigned at Female 03/13/2023 1:38 PM TUMBLER MACHINE OPERATOR HELPER Gender Identity Female 03/13/2023 1:42 PM TUMBLER MACHINE OPERATOR HELPER Sexual Orientation Straight 03/13/2023 1: 42 PM TUMBLER MACHINE OPERATOR HELPER Last Filed Vital Signs Vital Sign Reading [...] Body Mass Index 44.76 03/13/2023 11:03 AM TUMBLER MACHINE OPERATOR HELPER Plan of Treatment Upcoming Encounters Date Type Department Care Team (Latest Contact Info) Description 11/27/2023 8:30 AM CDT Appointment Department of Radiology, [facility], in [place], [place] [address] [place] [address] Jo Root M.D., Ph.D. [address] [place] [phone] Discharge Disposition: Home or Self Care 11/27/2023 10:30 AM CDT Nurse Only Division of Nephrology and Hypertension in [place], [place] [address] [place] [phone] Jo Root M.D., Ph.D. [address] [place] [phone] 11/27/2023 1:00 PM CDT Comprehensive Visit Division of Vascular and Endovascular Surgery in [place], [place] [address] [place] [address] Jo oRot M.D., Ph.D. [address] [place] [phone] Health Maintenance Due Date Last Done Comments CT Colonography 1974 Cologuard 1974 Colonoscopy 1974 Colorectal Cancer Screening 1974 FIT 1974 HIV Screening 1974 Hepatitis C Screening 1974 Mammogram 1974 Meningococcal Vaccine (1 - R isk 1-dose series ) 1976 Pneumococcal vaccine (0-64 y ears) (1 of 2 - PCV) 1980 MenB Vaccine (1 of 2 - Patie nt Seeks Protection) 1990 Hepatitis A Vaccines (1 of 2 - Risk 2-dose series) 1993 Zoster Vaccines (1 of 2) 1993 Hepatitis B Vaccines (2 of 3 - 19+ 3-dose series) 06/07/2016 05/10/2016 MMR Vaccines (2 of 2 - Risk 2-dose series) 06/07/2016 05/10/2016 Cervical Cancer Screening 07/29/2021 07/29/2018 Depression Screening (Annual PHQ-2) 02/17/2023 Office Visit for Blood Press ure Check / Re-check 06/12/2023 03/13/2023 Lipid (Cholesterol) Screening 07/30/2023 07/29/2018 COVID-19 Vaccine (4 - 2023-2 5 season) 2023 03/07/2021, 06/23/2020, 06/02/2020 Influenza Vaccine [...] FUNCTION PANEL, S Routine 04/08/2023 12:39 PM TUMBLER MACHINE OPERATOR HELPER Failure Renal Acute (Acute Kidney Injury) (HCC) [...] catheter were prepped and draped sterilely. A shuttle bus driver view showed the tip of the catheter [...] obtained from the patient via in person financial intern.. Immediately prior to starting the procedure, in [...] dialysis catheter were prepped anddraped sterilely. A shuttle bus driver view showed the tip of the catheter [...] consent obtained from thepatient via in person financial intern.. Immediately prior tostarting the procedure, in the [...] (ABNORMAL) Renal Function Panel (04/08/2023 12:39 PM TUMBLER MACHINE OPERATOR HELPER) Potassium, S 5.0 3.6 - 5.2 mmol/L 04/08/2023 2:11 PM TUMBLER MACHINE OPERATOR HELPER DTL Sodium, S 139 135 - 145 mmol/L 04/08/2023 2:11 PM TUMBLER MACHINE OPERATOR HELPER DTL Chloride, S 108(H) 98 - 107 mmol/L 04/08/2023 2:11 PM TUMBLER MACHINE OPERATOR HELPER DTL Bicarbonate, S 18(L) 22 - 29 mmol/L 04/08/2023 2:11 PM TUMBLER MACHINE OPERATOR HELPER DTL Anion Gap 13 7 - 15 04/08/2023 2:11 PM TUMBLER MACHINE OPERATOR HELPER DTL BUN (Blood Urea Nitrogen), S 71(H) 6 - 21 mg/dL 04/08/2023 2:11 PM TUMBLER MACHINE OPERATOR HELPER DTL Creatinine 4.41(H) 0.59 - 1.04 mg/dL 04/08/2023 2:11 PM TUMBLER MACHINE OPERATOR HELPER DTL Estimated GFR (eGFR) <15(L) >=60 mL/min/BSA 04/08/2023 2:11 PM TUMBLER MACHINE OPERATOR HELPER DTL Comment: Estimated GFR calculated using the 2020 CKD_EPI creatinine equation. Calcium, Total, S 8.8 8.6 - 10.0 mg/dL 04/08/2023 2:11 PM TUMBLER MACHINE OPERATOR HELPER DTL Glucose, S 103 70 - 140 mg/dL 04/08/2023 2:11 PM TUMBLER MACHINE OPERATOR HELPER DTL Albumin, S 4.0 3.5 - 5.0 g/dL 04/08/2023 2:11 PM TUMBLER MACHINE OPERATOR HELPER DTL Phosphorus (Inorganic), S 4.9(H) 2.5 - 4.5 mg/dL 04/08/2023 2:11 PM TUMBLER MACHINE OPERATOR HELPER DTL Blood (Blood, Venous) 04/08/2023 12:39 PM TUMBLER MACHINE OPERATOR HELPER 04/08/2023 1:34 PM TUMBLER MACHINE OPERATOR HELPER Yin Garcia APRN, C.N.P., D.N.P. LAB BLOOD ADD-ON [facility] [address] [place] [address], [place] DTL [facility] [address] [place] [address] from Last 3 Months or Most Recently Relevant to Health Maintenance Advance Directives For more information, please contact: [phone] * Full Code (Latest Code Status on File) Date Activated Date Inactivated Comments 10/09/2023 1:45 PM Question Answer Comments Full Code: Not Discussed Due to: Patient not available * Full Code Date Activated Date Inactivated Comments 03/17/2023 12:45 PM 03/17/2023 5:05 PM Question Answer Comments Full Code: Not Discussed Due to: Not medically appropriate Care Teams Group Cio Relationship Specialty Start Date End Date None Reported, Pcp PCP - General Family Medicine 03/10/23
--- OUTSIDE RECORDS SUMMARY | 2023-11-07 10:36 | XMS_ITS | Clinical Summary ---
Author Organization [facility] Address [address] [place] [address] Care Team Providers Care Nephrologist Name Role Phone No Ref-Primary, Physician Primary [...] calendar year) 2023 COVID-19 Vaccine (3 - 2023- season) 2023 06/23/2020, 06/02/2020 INFLUENZA VACCINE (#1) [...] age to complete this topic Care Teams Nephrologist Relationship Specialty Start Date End Date No Ref-Primary, Physician PCP - General 05/25/21
--- OUTSIDE RECORDS SUMMARY | 2023-11-07 10:37 | XMS_ITS | Encounter Summary ---
Author Organization [facility] Address [address] [place] [address] Care Team Providers Care Exposure Machine Operator Name Role Phone None Reported, Pcp Primary Care Provider Unavail able Reason for Visit * Reason Comments NEDRA (acute kidney injury) Encounter Details Date Type Department Care Team ([facility] st Contact Info) Description 10/17/2023 Documentation Division of Nephrology and Hypertension, [facility], in [place], [place] [address] [place] [address] Melly Goldstein R.N. [address] [place] [address] NEDRA (acute kidney injury) Social History Tobacco Use Types Packs/Day Years Used Date Smoking Tobacco: Never Smokeless Tobacco: Never Alcohol Use Standard Drinks/Week Comments Never 0 (1 standard drink = 0.6 oz pur e alcohol) [facility] Utilities Answer Date Recorded In the past 12 months has e [employer], gas, oil, or water [employer] threatened to shut off services in your [...] your living situation today? I have a [facility] place to live 03/13/2023 Sex and Gender Information Value Date Recorded Sex Assigned at Female 03/13/2023 1:38 PM PUBLISHING DIRECTOR Gender Identity Female 03/13/2023 1:42 PM PUBLISHING DIRECTOR Sexual Orientation Straight 03/13/2023 1: 42 PM PUBLISHING DIRECTOR documented as of this encounter Progress Notes * Melly Goldstein RJanis. - 10/17/2023 9:41 AM CDT Encounter created in error documented in this encounter Plan of Treatment Upcoming Encounters Date Type Department Care Team (Latest Contact Info) Description 11/27/2023 8:30 AM CDT Appointment Department of Radiology, [facility], in [place], [place] [address] [place] [address] Jo Root M.D., Ph.D. [address] [place] [phone] Discharge Disposition: Home or Self Care 11/27/2023 10:30 AM CDT Nurse Only Division of Nephrology and Hypertension in [place], [place] [address] [place] [address] Jo Root M.D., Ph.D. [address] [place] [phone] 11/27/2023 1:00 PM CDT Comprehensive Visit Division of Vascular and Endovascular Surgery in [place], [place] [address] [place] [address] Jo Root M.D., Ph.D. [address] [place] [phone] documented as of this encounter Visit Diagnoses Not on filedocumented in this encounter Care Teams Exposure Machine Operator Relationship Specialty Start Date End Date None Reported, Pcp PCP - General Family Medicine 03/10/23 documented as of this encounter
--- OUTSIDE RECORDS SUMMARY | 2023-11-07 10:37 | XMS_ITS | Encounter Summary ---
Author Organization [facility] Address [address] [place] [address] Care Team Providers Care Electronic Organ Technician Name Role Phone None Reported, Pcp Primary Care Provider Unavail able Reason for Referral * Specialty Diagnoses / Procedures Referred By Crow olivo Referred To Contact Yin Garcia APRN, C.N.PJanie, D.N.P. [address] [place] [phone] [facility] Referral ID Status Reason Start Date Expiration Date Visits Re quested Visits Authorized * Outpatient (Routine) - Closed Specialty Diagnoses / Procedures Referred By Crow olivo Referred To Contact Radiology Diagnoses Hemodialysis Status (HCC) Procedures IR Dialysis / High Flow Catheter Exchange Yin Garcia APRN, C.N.P., D.N.P. [address] [place] [phone] [facility] Referral ID Status Reason Start Date Expiration Date Visits Re quested Visits Authorized [id number] Closed 10/08/2023 10/07/2024 1 1 Encounter Details Date Type Department Care Team (Late st Contact Info) Description 10/08/2023 Orders Only Division of Nephrology and Hypertension in [place], [place] [address] [place] [phone] Yin Garcia APRN, C.N.P., D.N.P. [address] [place] [phone] Hemodialysis Status (HCC) (Primary Dx) Social History Tobacco Use Types Packs/Day Years Used Date Smoking Tobacco: Never Smokeless Tobacco: Never Alcohol Use Standard Drinks/Week Comments Never 0 (1 standard drink = 0.6 oz pur e alcohol) [facility] Utilities Answer Date Recorded In the past 12 months has e [employer], gas, oil, or water [employer] threatened to shut off services in your [...] your living situation today? I have a [facility] place to live 03/13/2023 Sex and Gender Information Value Date Recorded Sex Assigned at Female 03/13/2023 1:38 PM INTERIOR DESIGN PROFESSIONAL Gender Identity Female 03/13/2023 1:42 PM INTERIOR DESIGN PROFESSIONAL Sexual Orientation Straight 03/13/2023 1: 42 PM INTERIOR DESIGN PROFESSIONAL documented as of this encounter Plan of Treatment Upcoming Encounters Date Type Department Care Team (Latest Contact Info) Description 11/27/2023 8:30 AM CDT Appointment Department of Radiology, [facility], in [place], [place] [address] [place] [address] Jo Root M.D., Ph.D. [address] [place] [phone] Discharge Disposition: Home or Self Care 11/27/2023 10:30 AM CDT Nurse Only Division of Nephrology and Hypertension in [place], [place] [address] [place] [phone] Jo Root M.D., Ph.D. [address] [place] [phone] 11/27/2023 1:00 PM CDT Comprehensive Visit Division of Vascular and Endovascular Surgery in [place], [place] [address] [place] [phone] Jo Root M.D., Ph.D. [address] [place] [phone] Scheduled Referrals Name Type Priority Associated Diagnoses [...] catheter were prepped and draped sterilely. A plumber view showed the tip of the catheter [...] obtained from the patient via in person structural engineer.. Immediately prior to starting the procedure, in [...] dialysis catheter were prepped anddraped sterilely. A plumber view showed the tip of the catheter [...] consent obtained from thepatient via in person structural engineer.. Immediately prior tostarting the procedure, in the [...] (HCC) documented in this encounter Care Teams Electronic Organ Technician Relationship Specialty Start Date End Date None Reported, Pcp PCP - General Family Medicine 03/10/23 documented as of this encounter
--- OUTSIDE RECORDS SUMMARY | 2023-11-07 10:37 | XMS_ITS | Encounter Summary ---
Author Organization [facility] Address [address] [place] [address] Care Team Providers Care Contract Designer Name Role Phone None Reported, Pcp Primary Care Provider Unavail able Encounter Details Date Type Department Care Team (Late st Contact Info) Description 07/25/2023 Orders Only Division of Nephrology and Hypertension, [facility], in [place], [place] [address] [place] [phone] Nicholas Tracey, STONE MASON, C.N.P., M.S.N. [address] [place] [phone] Social History Tobacco Use Types Packs/Day Years Used Date Smoking Tobacco: Never Smokeless Tobacco: Never Alcohol Use Standard Drinks/Week Comments Never 0 (1 standard drink = 0.6 oz pur e alcohol) [facility] Utilities Answer Date Recorded In the past 12 months has th e electric, gas, oil, or water [employer] threatened to shut off services in your [...] your living situation today? I have a [facility] place to live 03/13/2023 Sex and Gender Information Value Date Recorded Sex Assigned at Female 03/13/2023 1:38 PM INSTRUCTIONAL AIDE Gender Identity Female 03/13/2023 1:42 PM INSTRUCTIONAL AIDE Sexual Orientation Straight 03/13/2023 1: 42 PM INSTRUCTIONAL AIDE documented as of this encounter Plan of Treatment Upcoming Encounters Date Type Department Care Team (Latest Contact Info) Description 11/27/2023 8:30 AM CDT Appointment Department of Radiology, [facility], in [place], [place] [address] [place] [address] Jo Root M.D., Ph.D. [address] [place] [phone] Discharge Disposition: Home or Self Care 11/27/2023 10:30 AM CDT Nurse Only Division of Nephrology and Hypertension in [place], [place] [address] [place] [address] Jo Root M.D., Ph.D. [address] [place] [phone] 11/27/2023 1:00 PM CDT Comprehensive Visit Division of Vascular and Endovascular Surgery in [place], [place] [address] [place] [address] Jo Root M.D., Ph.D. [address] [place] [phone] documented as of this encounter Visit Diagnoses Not on filedocumented in this encounter Care Teams Contract Designer Relationship Specialty Start Date End Date None Reported, Pcp PCP - General Family Medicine 03/10/23 documented as of this encounter
--- OUTSIDE RECORDS SUMMARY | 2023-11-07 10:37 | XMS_ITS | Encounter Summary ---
Author Organization [facility] Address [address] [place] [address] Care Team Providers Care Instructional Interventionist Name Role Phone None Reported, Pcp Primary Care Provider Unavail able Encounter Details Date Type Department Care Team (Late st Contact Info) Description 09/19/2023 Episode Changes Division of Nephrology and Hypertension in [place], [place] [address] [place] [phone] Jo Root M.D., Ph.D. [address] [place] [phone] Social History Tobacco Use Types Packs/Day Years Used Date Smoking Tobacco: Never Smokeless Tobacco: Never Alcohol Use Standard Drinks/Week Comments Never 0 (1 standard drink = 0.6 oz pur e alcohol) [facility] Utilities Answer Date Recorded In the past 12 months has th e [employer], gas, oil, or water [email or web address] threatened to shut off services in your [...] your living situation today? I have a [facility] place to live 03/13/2023 Sex and Gender Information Value Date Recorded Sex Assigned at Female 03/13/2023 1:38 PM ASSISTED LIVING HOUSEKEEPER Gender Identity Female 03/13/2023 1:42 PM ASSISTED LIVING HOUSEKEEPER Sexual Orientation Straight 03/13/2023 1: 42 PM ASSISTED LIVING HOUSEKEEPER documented as of this encounter Plan of Treatment Upcoming Encounters Date Type Department Care Team (Latest Contact Info) Description 11/27/2023 8:30 AM CDT Appointment Department of Radiology, [facility], in [place], [place] [address] [place] [address] Jo Root M.D., Ph.D. [address] [place] [phone] Discharge Disposition: Home or Self Care 11/27/2023 10:30 AM CDT Nurse Only Division of Nephrology and Hypertension in [place], [place] [address] [place] [phone] Jo Root M.D., Ph.D. [address] [place] [phone] 11/27/2023 1:00 PM CDT Comprehensive Visit Division of Vascular and Endovascular Surgery in [place], [place] [address] [place] [phone] Jo Root M.D., Ph.D. [address] [place] [phone] documented as of this encounter Visit Diagnoses Not on filedocumented in this encounter Care Teams Instructional Interventionist Relationship Specialty Start Date End Date None Reported, Pcp PCP - General Family Medicine 03/10/23 documented as of this encounter
--- OUTSIDE RECORDS SUMMARY | 2023-11-07 10:37 | XMS_ITS | Encounter Summary ---
Author Organization [facility] Address [address] [place] [address] Care Team Providers Care Tape Calender Name Role Phone None Reported, Pcp Primary Care Provider Unavail able Encounter Details Date Type Department Care Team (Late st Contact Info) Description 08/04/2023 Orders Only Division of Nephrology and Hypertension, [facility], in [place], [place] [address] [place] [phone] Nicholas Tracey, GASFITTER, C.N.P., M.S.N. [address] [place] [phone] Social History Tobacco Use Types Packs/Day Years Used Date Smoking Tobacco: Never Smokeless Tobacco: Never Alcohol Use Standard Drinks/Week Comments Never 0 (1 standard drink = 0.6 oz pur e alcohol) [facility] Utilities Answer Date Recorded In the past 12 months has th e electric, gas, oil, or water [employer] threatened to shut off services in your [...] living situation today? I have a [facility] place to live 03/13/2023 Sex and Gender Information Value Date Recorded Sex Assigned at Female 03/13/2023 1:38 PM FINISHING TECHNICIAN Gender Identity Female 03/13/2023 1:42 PM FINISHING TECHNICIAN Sexual Orientation Straight 03/13/2023 1: 42 PM FINISHING TECHNICIAN documented as of this encounter Plan of Treatment Upcoming Encounters Date Type Department Care Team (Latest Contact Info) Description 11/27/2023 8:30 AM CDT Appointment Department of Radiology, [facility], in [place], [place] [address] [place] [address] Jo Root M.D., Ph.D. [address] [place] [phone] Discharge Disposition: Home or Self Care 11/27/2023 10:30 AM CDT Nurse Only Division of Nephrology and Hypertension in [place], [place] [address] [place] [address] Jo Root M.D., Ph.D. [address] [place] [phone] 11/27/2023 1:00 PM CDT Comprehensive Visit Division of Vascular and Endovascular Surgery in [place], [place] [address] [place] [address] Jo Root M.D., Ph.D. [address] [place] [phone] documented as of this encounter Visit Diagnoses Not on filedocumented in this encounter Care Teams Tape Calender Relationship Specialty Start Date End Date None Reported, Pcp PCP - General Family Medicine 03/10/23 documented as of this encounter
--- OUTSIDE RECORDS SUMMARY | 2023-11-07 10:37 | XMS_ITS | Encounter Summary ---
Author Organization [facility] Address [address] [place] [address] Care Team Providers Care Service Transformer Repair Supervisor Name Role Phone None Reported, Pcp Primary Care Provider Unavail able Encounter Details Date Type Department Care Team (Late st Contact Info) Description 10/08/2023 Documentation Division of Nephrology and Hypertension in [place], [place] [address] [place] [address] Rosanna Serrato, RJanieNJanie [address] [place] [address] Social History Tobacco Use Types Packs/Day Years Used Date Smoking Tobacco: Never Smokeless Tobacco: Never Alcohol Use Standard Drinks/Week Comments Never 0 (1 standard drink = 0.6 oz pur e alcohol) [facility] Utilities Answer Date Recorded In the past 12 months has e electric, gas, oil, or water [employer] threatened to shut off services in your [...] Sex Assigned at Female 03/13/2023 1:38 PM DRY CELL TESTER Gender Identity Female 03/13/2023 1:42 PM DRY CELL TESTER Sexual Orientation Straight 03/13/2023 1: 42 PM DRY CELL TESTER documented as of this encounter Progress Notes * Rosanna Serrato RJanis. - 10/08/2023 3:33 PM CDT Patient scheduled for a dialysis tunneled catheter exchange for tomorrow, 10/09/23.Patient is to report at 11:30 to [facility], Main floor, anibal Davison MD. 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 Patient is diet controlled diabetic. She is not on any anticoagulation. Patient will dialyze at [facility] post catheter replacement. Her normal dialysis days are //. She had some dialysis yesterday. All discussion with the patient via the slag expander # [id number]. documented in this encounter Plan of Treatment Upcoming Encounters Date Type Department Care Team (Latest Contact Info) Description 11/27/2023 8:30 AM CDT Appointment Department of Radiology, [facility], in [place], [place] [address] [place] [address] Jo Root M.D., Ph.D. [address] [place] [address] Discharge Disposition: Home or Self Care 11/27/2023 10:30 AM CDT Nurse Only Division of Nephrology and Hypertension in [place], [place] [address] [place] [address] Jo Root M.D., Ph.D. [address] [place] [phone] 11/27/2023 1:00 PM CDT Comprehensive Visit Division of Vascular and Endovascular Surgery in [place], [place] [address] [place] [address] Jo Root M.D., Ph.D. [address] [place] [phone] documented as of this encounter Visit Diagnoses Not on filedocumented in this encounter Care Teams Service Transformer Repair Supervisor Relationship Specialty Start Date End Date None Reported, Pcp PCP - General Family Medicine 03/10/23 documented as of this encounter
--- OUTSIDE RECORDS SUMMARY | 2023-11-07 10:37 | XMS_ITS ---
Author Organization [facility] Address [address] [place] [address] Care Team Providers Care Board Setter Name Role Phone None Reported, Pcp Primary Care Provider Unavail able Transplant Episode Kidney Candidate [facility] ([place], [place]) - [facility] Referred on 09/10/2023 Marked as Active on 09/10/2023 Kidney CoordinatorVandana Lauren R.N., C.C.T.C. Phone: N/A Fax: N/A Email: N/A Scores Score Value Updated Exceptions/Reas ons CPRA Not available EPTS (Calc) 14 11/07/2023 Care Team Name Role Phone Fax Email Vandana Lauren R.N., C.C.T.C. Kidney Coordinator N/A N/A N/A Jo Berg M.D., Ph.D. Referring Provider [phone] [email or web address] Events Pre-Transplant Referred: 09/10/2023 Dialysis History Dialysis History Start End Type [facility] Information Center Phone Fax Address [facility] [phone] [place] [phone]
--- OUTSIDE RECORDS SUMMARY | 2023-11-07 10:37 | XMS_ITS | Encounter Summary ---
Author Organization [facility] Address [address] [place] [address] Care Team Providers Care Drill Press Hand Name Role Phone None Reported, Pcp Primary Care Provider Unavail able Encounter Details Date Type Department Care Team (Late st Contact Info) Description 10/13/2023 Orders Only Division of Nephrology and Hypertension, [facility], in [place], [place] [address] [place] [phone] Nicholas Tracey, CS ASSOCIATE, C.N.P., M.S.N. [address] [place] [phone] Social History Tobacco Use Types Packs/Day Years Used Date Smoking Tobacco: Never Smokeless Tobacco: Never Alcohol Use Standard Drinks/Week Comments Never 0 (1 standard drink = 0.6 oz pur e alcohol) [facility] Utilities Answer Date Recorded In the past 12 months has th e electric, gas, oil, or water [email or web address] threatened to shut off services in your [...] your living situation today? I have a [facility] place to live 03/13/2023 Sex and Gender Information Value Date Recorded Sex Assigned at Female 03/13/2023 1:38 PM DOULA Gender Identity Female 03/13/2023 1:42 PM DOULA Sexual Orientation Straight 03/13/2023 1: 42 PM DOULA documented as of this encounter Plan of Treatment Upcoming Encounters Date Type Department Care Team (Latest Contact Info) Description 11/27/2023 8:30 AM CDT Appointment Department of Radiology, [facility], in [place], [place] [address] [place] [address] Jo Root M.D., Ph.D. [address] [place] [phone] Discharge Disposition: Home or Self Care 11/27/2023 10:30 AM CDT Nurse Only Division of Nephrology and Hypertension in [place], [place] [address] [place] [address] Jo Root M.D., Ph.D. [address] [place] [phone] 11/27/2023 1:00 PM CDT Comprehensive Visit Division of Vascular and Endovascular Surgery in [place], [place] [address] [place] [address] Jo Root M.D., Ph.D. [address] [place] [phone] documented as of this encounter Visit Diagnoses Not on filedocumented in this encounter Care Teams Drill Press Hand Relationship Specialty Start Date End Date None Reported, Pcp PCP - General Family Medicine 03/10/23 documented as of this encounter
--- OUTSIDE RECORDS SUMMARY | 2023-11-07 10:37 | XMS_ITS ---
Author Organization [facility] Address [address] [place] [address] Care Team Providers Care Vat Washer Name Role Phone None Reported, Pcp Primary Care Provider Unavail able Kidney [place] T[employer] Burner Program Status:Closed (Closed) Start date:03/13/2023 Enrollment date:03/13/2023 Enrollment reason:Referred by provider End date:11/04/2023 Close reason:Transition to In-center Dialysis Continued Care and Services Coordination
--- OUTSIDE RECORDS SUMMARY | 2023-11-07 10:37 | XMS_ITS | Encounter Summary ---
Author Organization [facility] Address [address] [place] [address] Care Team Providers Care Credit Union Teller Name Role Phone None Reported, Pcp Primary Care Provider Unavail able Reason for Referral * Outpatient (Routine) - Authorized Specialty Diagnoses / Procedures Referred By Crow olivo Referred To Contact Dermatology Diagnoses Jo Holder M.D., Ph.D. [address] [place] [phone] [facility] Referral ID Status Reason Start Date Expiration Date Visits Requested Visits Authorized [id number] Authorized Specialty Services Required 08/04/2023 02/02/2025 1 1 Encounter Details Date Type Department Care Team (Late st Contact Info) Description 08/04/2023 Orders Only Division of Nephrology and Hypertension in [place], [place] [address] [place] [phone] Jo Root M.D., Ph.D. [address] [place] [phone] Alexandre (Primary Dx) Social History Tobacco Use Types Packs/Day Years Used Date Smoking Tobacco: Never Smokeless Tobacco: Never Alcohol Use Standard Drinks/Week Comments Never 0 (1 standard drink = 0.6 oz pur e alcohol) [facility] Utilities Answer Date Recorded In the [...] living situation today? I have a [facility] place to live 03/13/2023 Sex and Gender Information Value Date Recorded Sex Assigned at Female 03/13/2023 1:38 PM SPINNING MULE OPERATOR Gender Identity Female 03/13/2023 1:42 PM SPINNING MULE OPERATOR Sexual Orientation Straight 03/13/2023 1: 42 PM SPINNING MULE OPERATOR documented as of this encounter Plan of Treatment Upcoming Encounters Date Type Department Care Team (Latest Contact Info) Description 11/27/2023 8:30 AM CDT Appointment Department of Radiology, [facility], in [place], [place] [address] [place] [address] Jo Root M.D., Ph.D. [address] [place] [phone] Discharge Disposition: Home or Self Care 11/27/2023 10:30 AM CDT Nurse Only Division of Nephrology and Hypertension in [place], [place] [address] [place] [address] Jo Root M.D., Ph.D. 200 [place] [address] 11/27/2023 1:00 PM CDT Comprehensive Visit Division of Vascular and Endovascular Surgery in [place], [place] [address] [place] [address] Jo Root M.D., Ph.D. 200 [place] [phone] Scheduled Referrals Name Type Priority Associated Diagnoses Order Schedule Dermatology - General consult (clinic) Outpatient Referral Routine Rash Expected: 08/04/2023, Expires: 11/03/2024 documented as of this encounter Visit Diagnoses Diagnosis Rash- Primary documented in this encounter Care Teams Credit Union Teller Relationship Specialty Start Date End Date None Reported, Pcp PCP - General Family Medicine 03/10/23 documented as of this encounter
--- OUTSIDE RECORDS SUMMARY | 2023-11-07 10:37 | XMS_ITS | Encounter Summary ---
Author Organization [facility] Address [address] [place] [address] Care Team Providers Care Weaving Teacher Name Role Phone None Reported, Pcp Primary Care Provider Unavail able Reason for Referral * Outpatient (Routine) - Closed Specialty Diagnoses / Procedures Referred By Crow olivo Referred To Contact Radiology Diagnoses Hemodialysis Status (HCC) Procedures IR Dialysis / High Flow Catheter Exchange Yin Garcia APRN, C.N.P., D.N.P. [address] [place] [phone] [facility] Referral ID Status Reason Start Date Expiration Date Visits Re quested Visits Authorized [id number] Closed 10/08/2023 10/07/2024 1 1 Reason for Visit * Outpatient (Routine) - Closed Specialty Diagnoses / Procedures Referred By Crow olivo Referred To Contact Radiology Diagnoses Hemodialysis Status (HCC) Procedures IR Dialysis / High Flow Catheter Exchange Yin Garcia APRN, C.N.P., D.N.P. [address] [place] [phone] [facility] Referral ID Status Reason Start Date Expiration Date Visits Re quested Visits Authorized [id number] Closed 10/08/2023 10/07/2024 1 1 Encounter Details Date Type Department Care Team (Latest Contact Info) Description 10/09/2023 12:17 PM CDT - 10/09/2023 3:11 PM CDT Hospital Encounter Department of Radiology in [place], [place] [address] [place] [phone] Yin Garcia APRN, C.N.P., D.N.P. [address] [place] [phone] Emigdio Colon M.D. [address] [place] [phone] Hemodialysis Status (HCC) Discharge Disposition: Home or Self Care Social History Tobacco Use Types Packs/Day Years Used Date Smoking Tobacco: Never Smokeless Tobacco: Never Alcohol Use Standard Drinks/Week Comments Never 0 (1 standard drink = 0.6 oz pur e alcohol) [facility] Utilities Answer Date Recorded In the past 12 months has e [employer], gas, oil, or water [employer] threatened to shut off services in your [...] your living situation today? I have a [facility] place to live 03/13/2023 Sex and Gender Information Value Date Recorded Sex Assigned at Female 03/13/2023 1:38 PM LOOM MECHANIC Gender Identity Female 03/13/2023 1:42 PM LOOM MECHANIC Sexual Orientation Straight 03/13/2023 1: 42 PM LOOM MECHANIC documented as of this encounter Last Filed [...] Body Mass Index 44.76 03/13/2023 11:03 AM LOOM MECHANIC documented in this encounter Discharge Instructions * Attachments The following attachments cannot be sent through Care Everywhere. * Your High-Flow Central Venous Catheter (Micronesian) documented in this encounter Medications at Time [...] 8:30 AM CDT Appointment Department of Radiology, [facility], in [place], [place] [address] [place] [phone] Jo Root M.D., Ph.D. [address] [place] [phone] Discharge Disposition: Home or Self Care 11/27/2023 10:30 AM CDT Nurse Only Division of Nephrology and Hypertension in [place], [place] [address] [place] [address] Jo Root M.D., Ph.D. [address] [place] [phone] 11/27/2023 1:00 PM CDT Comprehensive Visit Division of Vascular and Endovascular Surgery in [place], [place] [address] [place] [address] Jo Root M.D., Ph.D. [address] [place] [phone] documented as of this encounter Procedures Procedure [...] catheter were prepped and draped sterilely. A waiter/waitress informal view showed the tip of the catheter [...] obtained from the patient via in person reimbursement counselor.. Immediately prior to starting the procedure, in [...] dialysis catheter were prepped anddraped sterilely. A waiter/waitress informal view showed the tip of the catheter [...] consent obtained from thepatient via in person reimbursement counselor.. Immediately prior tostarting the procedure, in the [...] Provider: Stefany Carroll R.N.)[id number] (Given - Provider: Stefany Carroll R.N.) fentaNYL injection 50 mcg (Sublimaze) [...] M.D.) documented in this encounter Care Teams Weaving Teacher Relationship Specialty Start Date End Date None Reported, Pcp PCP - General Family Medicine 03/10/23 documented as of this encounter
--- OUTSIDE RECORDS SUMMARY | 2023-11-07 10:37 | XMS_ITS | Encounter Summary ---
Author Organization [facility] Address [address] [place] [address] Care Team Providers Care Youth Development Specialist Name Role Phone None Reported, Pcp Primary Care Provider Unavail able Reason for Referral * Transplant (Routine) - Authorized Specialty Diagnoses / Procedures Referred By Contac t Referred To Contact Transplant Diagnoses Chronic Kidney Disease Stage 5 GFR Less Than 15 Dialysis Dependent (HCC) Jo Root M.D., Ph.D. [address] [place] [phone] [facility] Referral ID Status Reason Start Date Expiration Date V isits Requested Visits Authorized [id number] Authorized 08/01/2023 01/30/2025 1 1 * Outpatient (Routine) - Authorized Specialty Diagnoses / Procedures Referred By Contac t Referred To Contact Diagnoses Chronic Kidney Disease Stage 5 GFR Less Than 15 Dialysis Dependent (HCC) Procedures US Upper Extremity Bilateral Dialysis Mapping Jo Root M.D., Ph.D. [address] [place] [phone] [facility] Referral ID Status Reason Start Date Expiration Date V isits Requested Visits Authorized [id number] Authorized 08/01/2023 07/31/2024 1 1 * Outpatient (Routine) - Authorized Specialty Diagnoses / Procedures Referred By Contac t Referred To Contact Nephrology and Hypertension / Dialysis Diagnoses Chronic Kidney Disease Stage 5 GFR Less Than 15 Dialysis Dependent (HCC) Jo Root M.D., Ph.D. [address] [place] [phone] [facility] Referral ID Status Reason Start Date Expiration Date V isits Requested Visits Authorized [id number] Authorized 08/01/2023 01/30/2025 1 1 * Outpatient (Routine) - Authorized Specialty Diagnoses / Procedures Referred By Contac t Referred To Contact Nephrology and Hypertension Jo Root M.D., Ph.D. [address] [place] [phone] [facility] Referral ID Status Reason Start Date Expiration Date V isits Requested Visits Authorized [id number] Authorized 08/01/2023 01/30/2025 1 1 Encounter Details Date Type Department Care Team (Late st Contact Info) Description 08/01/2023 Orders Only Division of Nephrology and Hypertension in [place], [place] [address] [place] [phone] Jo Root M.D., Ph.D. [address] [place] [phone] Chronic Kidney Disease Stage 5 GFR Less Than 15 Dialysis Dependent (HCC) (Primary Dx) Social History Tobacco Use Types Packs/Day Years Used Date Smoking Tobacco: Never Smokeless Tobacco: Never Alcohol Use Standard Drinks/Week Comments Never 0 (1 standard drink = 0.6 oz pur e alcohol) [facility] Utilities Answer Date Recorded In the past 12 months has [employer], gas, oil, or water [employer] threatened to shut off services in your [...] Sex Assigned at Female 03/13/2023 1:38 PM SHARED SERVICES REPRESENTATIVE Gender Identity Female 03/13/2023 1:42 PM SHARED SERVICES REPRESENTATIVE Sexual Orientation Straight 03/13/2023 1: 42 PM SHARED SERVICES REPRESENTATIVE documented as of this encounter Plan of Treatment Upcoming Encounters Date Type Department Care Team (Latest Contact Info) Description 11/27/2023 8:30 AM CDT Appointment Department of Radiology, [facility], in [place], [place] [address] [place] [address] Jo Root M.D., Ph.D. [address] [place] [phone] Discharge Disposition: Home or Self Care 11/27/2023 10:30 AM CDT Nurse Only Division of Nephrology and Hypertension in [place], [place] [address] [place] [address] Jo Root M.D., Ph.D. [address] [place] [phone] 11/27/2023 1:00 PM CDT Comprehensive Visit Division of Vascular and Endovascular Surgery in [place], [place] [address] [place] [phone] Jo Root M.D., Ph.D. [address] [place] [address] Scheduled Orders Name Type Priority Associated Diagnoses [...] Primary documented in this encounter Care Teams Youth Development Specialist Relationship Specialty Start Date End Date None Reported, Pcp PCP - General Family Medicine 03/10/23 documented as of this encounter
--- OUTSIDE RECORDS SUMMARY | 2023-11-07 10:37 | XMS_ITS | Encounter Summary ---
Author Organization [facility] Address [address] [place] [address] Care Team Providers Care Asset Protection Representative Name Role Phone None Reported, Pcp Primary Care Provider Unavail able Encounter Details Date Type Department Care Team (Late st Contact Info) Description 08/06/2023 Orders Only Division of Nephrology and Hypertension, [facility], in [place], [place] [address] [phone] Nicholas Tracey, MOP WORKER, C.N.P., M.S.N. [address] [place] [phone] Trigger Finger Middle Right (Primary Dx) Social History Tobacco Use Types Packs/Day Years Used Date Smoking Tobacco: Never Smokeless Tobacco: Never Alcohol Use Standard Drinks/Week Comments Never 0 (1 standard drink = 0.6 oz pur e alcohol) [facility] Utilities Answer Date Recorded In the past 12 months has [facility] [employer], gas, oil, or water [employer] threatened to shut off services in your [...] your living situation today? I have a [facility] place to live 03/13/2023 Sex and Gender Information Value Date Recorded Sex Assigned at Female 03/13/2023 1:38 PM SUSTAIN ENGINEER Gender Identity Female 03/13/2023 1:42 PM SUSTAIN ENGINEER Sexual Orientation Straight 03/13/2023 1: 42 PM SUSTAIN ENGINEER documented as of this encounter Plan of Treatment Upcoming Encounters Date Type Department Care Team (Latest Contact Info) Description 11/27/2023 8:30 AM CDT Appointment Department of Radiology, [facility], in [place], [place] [address] [place] [address] Jo Root M.D., Ph.D. [address] [place] [phone] Discharge Disposition: Home or Self Care 11/27/2023 10:30 AM CDT Nurse Only Division of Nephrology and Hypertension in [place], [place] [address] [place] [phone] Jo Root M.D., Ph.D. [address] [place] [phone] 11/27/2023 1:00 PM CDT Comprehensive Visit Division of Vascular and Endovascular Surgery in [place], [place] [address] [place] [address] Jo Root M.D., Ph.D. [address] [place] [phone] documented as of this encounter Visit Diagnoses Diagnosis Trigger Finger Middle Right- Primary documented in this encounter Care Teams Asset Protection Representative Relationship Specialty Start Date End Date None Reported, Pcp PCP - General Family Medicine 03/10/23 documented as of this encounter
--- OUTSIDE RECORDS SUMMARY | 2023-11-07 10:37 | XMS_ITS | Clinical Summary ---
Author Organization [facility] Address [place], [place] [address] Care Team Providers Care Account Support Manager Name Role Phone Mayuri Corcoran MD Primary [...] Routine 07/29/2018 8:31 AM CDT Lipid screening SCHOOL PLANT CONSULTANT THIN PREP PAP SCREEN IMAGED Routine 07/29/2018 8:05 AM CDT Screening for malignant neoplasm of cervix XR MAMMO BILAT SCREENING Routine 03/07/2016 10:12 AM LINEN ROOM CUSTODIAN Visit for screening mammogram from Last 3 Months or Most Recently Relevant to Health Maintenance Results * (ABNORMAL) LIPID PANEL W REFLEX MEASURED LDL [[id number]] (07/29/2018 8:31 AM CDT) CHOLESTEROL,TOTAL 172 100 - 199 mg/dL 07/29/2018 1:47 PM CDT [facility] TRIGLYCERIDES 172(H) <150 mg/dL 07/29/2018 1:47 PM CDT [facility] HDL CHOLESTEROL 34(L) >40 mg/dL 9 1:47 PM CDT [facility] NON-HDL CHOLESTEROL 138 <145 mg/dl 07/29/2018 1:47 PM CDT [facility] CHOL/HDL RATIO 5.06(H) <4.50 07/29/2018 1:47 PM CDT [facility] LDL CHOLESTEROL 104 <=130 mg/dL 07/29/2018 1:47 PM CDT [facility] PROVIDER ORDERED STATUS RANDOM 07/29/2018 1:47 PM CDT [facility] Blood BLOOD SPECIMEN / Unknown Butterfly / Unknown 07/29/2018 8:31 AM CDT 07/29/2018 8:31 AM CDT Mayuri Corcoran MD [facility] [address] [place] [address], [place] * SCHOOL PLANT CONSULTANT THIN PREP PAP SCREEN IMAGED [[id number]] (07/29/2018 8:05 AM CDT) Case Report Gynecologic Cytology Report ? Case: [id number] ? Authorizing Provider: ??Mayuri Corcoran MD ? Collected: ? 07/29/2018 0805 ? Ordering Location: ? [facility] ?? Received: ?07/29/2018 0831 ? Clinic ? First Screen: ?Jasen Paula ? Pathologist: ? Molina Arias Jr., ? MD ? Specimen: ?SCHOOL PLANT CONSULTANT ThinPrep Vial Screening, Cervical ? 08/05/2018 6:40 AM CDT [facility] INTERPRETATION/ RESULT NEGATIVE FOR INTRAEPITHELIAL LESION OR MALIGNANCY (NIL) (none) 08/05/2018 6:40 AM CDT [facility] IMEN ADEQUACY Satisfactory for evaluation Endocervical component present 08/05/2018 6:40 AM CDT [facility] HPV REQUEST HPV and PAP 08/05/2018 6:40 AM CDT [facility] Date of LMP 07/11/2018 08/05/2018 6:40 AM CDT [facility] Last Pap Date 10/02/11 08/05/2018 6:40 AM CDT [facility] [employer] [facility]-C EN[facility]AL [facility] Last Pap Result NIL 9 6:40 AM CDT [facility] Abnormal Pap or Rangely Bx in last 5 years No 08/05/2018 6:40 AM CDT [facility] [employer] [facility] EN[facility]AL LAB[facility] Menstrual Status Regular Periods 08/05/2018 6:40 AM CDT [facility] [employer] [facility] EN[facility]AL LAB[facility] Rangely Bx Done Today No 08/05/2018 6:40 AM CDT [facility] [employer] Additional Information None given 08/05/2018 6:40 AM CDT [facility] Automated Review Successful 08/05/2018 6:40 AM CDT [facility] Comment:Specimen processed s uccessfully by automated gore inserter device, ThinPrep Imaging System, [employer] ANCILLARY TESTING SCHOOL PLANT CONSULTANT HPV Ordered, Please see separate report 08/05/2018 6:40 AM CDT [facility] [employer] [facility] Note The pap test is [...] lesions. Cytology is screened and interpreted at [facility], Central Laboratory - [address], [place] [address] and [facility] - [address]; [place] [address] and [facility] - [address]; [place] [address] and [facility] [address]; [place] [address] 08/05/2018 6:40 AM CDT [facility] ENTRAL LABORATORY Other (Cervical) Non-Blood / Unknown 07/29/2018 8:05 AM CDT 07/29/2018 8:31 AM CDT Mayuri Corcoran MD PATHOLOGY/CYTOLOGY [facility] [address] [place] [address], [place] * XR MAMMO BILAT SCREENING (03/07/2016 10:12 AM LINEN ROOM CUSTODIAN) Anatomical Region Laterality Modality BREASTS, Breast Left, Breast Right Bilateral Mammography Impressions 03/07/2016 12:39 PM LINEN ROOM CUSTODIAN ??There is no radiographic evidence for malignancy. ??Recommend annual mammograms. A lay language report of this examination will be provided to the patient. MAMMOGRAM ASSESSMENT: ??ACR 2 Benign Narrative 03/07/2016 12:39 PM LINEN ROOM CUSTODIAN XR MAMMO BILAT SCREENING [[id number]] CLINICAL HISTORY: ??This is an asymptomatic 40 [...] Recently Relevant to Health Maintenance Care Teams Account Support Manager Relationship Specialty Start Date End Date Mayuri Corcoran MD [address] [place] [address] PCP - General Family Practice 09/15/18
--- OUTSIDE RECORDS SUMMARY | 2023-11-07 10:37 | XMS_ITS | Encounter Summary ---
Author Organization [facility] Address [address] [place] [address] Care Team Providers Care Tombstone Carver Name Role Phone None Reported, Pcp Primary Care Provider Unavail able Encounter Details Date Type Department Care Team (Late st Contact Info) Description 08/04/2023 Clinical Communication Division of Nephrology and Hypertension in [place], [place] [address] [place] [phone] Jo Root M.D., Ph.D. [address] [place] [phone] Social History Tobacco Use Types Packs/Day Years Used Date Smoking Tobacco: Never Smokeless Tobacco: Never Alcohol Use Standard Drinks/Week Comments Never 0 (1 standard drink = 0.6 oz pur e alcohol) [facility] Utilities Answer Date Recorded In the past 12 months has th e [employer], gas, oil, or water [employer] threatened to shut off services in your [...] your living situation today? I have a [facility] place to live 03/13/2023 Sex and Gender Information Value Date Recorded Sex Assigned at Female 03/13/2023 1:38 PM WINDOW UNIT AIR CONDITIONING MECHANIC Gender Identity Female 03/13/2023 1:42 PM WINDOW UNIT AIR CONDITIONING MECHANIC Sexual Orientation Straight 03/13/2023 1: 42 PM WINDOW UNIT AIR CONDITIONING MECHANIC documented as of this encounter Miscellaneous Notes * Telephone Encounter - Jo Root M.D., Ph.D. - 08/04/2023 10:40 AM CDT Patient has been evaluated during dialysis at [facility]. She presents a pruritic rash, she states [...] 8:30 AM CDT Appointment Department of Radiology, [facility], in [place], [place] [address] [place] [address] Jo Root M.D., Ph.D. [address] [place] [address] Discharge Disposition: Home or Self Care 11/27/2023 10:30 AM CDT Nurse Only Division of Nephrology and Hypertension in [place], [place] [address] [place] [phone] Jo Root M.D., Ph.D. [address] [place] [address] 11/27/2023 1:00 PM CDT Comprehensive Visit Division of Vascular and Endovascular Surgery in [place], [place] [address] [place] [address] Jo Root M.D., Ph.D. [address] [place] [phone] documented as of this encounter Visit Diagnoses Not on filedocumented in this encounter Care Teams Tombstone Carver Relationship Specialty Start Date End Date None Reported, Pcp PCP - General Family Medicine 03/10/23 documented as of this encounter
--- OUTSIDE RECORDS SUMMARY | 2023-11-07 10:37 | XMS_ITS | Encounter Summary ---
Author Organization [facility] Address [address] [place] [address] Care Team Providers Care Rf Design Engineer Name Role Phone None Reported, Pcp Primary Care Provider Unavail able Encounter Details Date Type Department Care Team (Late st Contact Info) Description 09/24/2023 Episode Changes Transplant Center in [place], [place] [address] [place] [phone] Shonda Florence Social History Tobacco Use Types Packs/Day Years Used Date Smoking Tobacco: Never Smokeless Tobacco: Never Alcohol Use Standard Drinks/Week Comments Never 0 (1 standard drink = 0.6 oz pur e alcohol) [facility] Utilities Answer Date Recorded In the past 12 months has e electric, gas, oil, or water [employer] threatened to shut off services in your [...] your living situation today? I have a [facility] place to live 03/13/2023 Sex and Gender Information Value Date Recorded Sex Assigned at Female 03/13/2023 1:38 PM MULTICRAFT OPERATOR Gender Identity Female 03/13/2023 1:42 PM MULTICRAFT OPERATOR Sexual Orientation Straight 03/13/2023 1: 42 PM MULTICRAFT OPERATOR documented as of this encounter Plan of Treatment Upcoming Encounters Date Type Department Care Team (Latest Contact Info) Description 11/27/2023 8:30 AM CDT Appointment Department of Radiology, [facility], in [place], [place] [address] [place] [address] Jo Root M.D., Ph.D. [address] [place] [phone] Discharge Disposition: Home or Self Care 11/27/2023 10:30 AM CDT Nurse Only Division of Nephrology and Hypertension in [place], [place] [address] [place] [address] Jo Root M.D., Ph.D. [address] [place] [phone] 11/27/2023 1:00 PM CDT Comprehensive Visit Division of Vascular and Endovascular Surgery in [place], [place] [address] [place] [phone] Jo Root M.D., Ph.D. [address] [place] [phone] documented as of this encounter Visit Diagnoses Not on filedocumented in this encounter Care Teams Rf Design Engineer Relationship Specialty Start Date End Date None Reported, Pcp PCP - General Family Medicine 03/10/23 documented as of this encounter
--- NOTE | 2023-11-07 11:21 | ED_ITS ---
HPI - Fever General Time Seen by Provider: 11:21 Date Seen: 11/07/23 Chief Complaint: Fever Stated Complaint: Fever was seen yesterday told to come back Time Seen by Provider: 11/07/23 11:20 Source: patient, RN notes reviewed and old records reviewed Mode of arrival: ambulatory Limitations: no limitations History of Present Illness HPI Narrative: Leny is a very pleasant 47-year-old female currently on dialysis Friday with last dialysis on FridayNovember 04 who comes to the emergency room after being called back as she had positive blood cultures. Her port engineer wanted her to go directly to [place] the patient stated that she did not feel well enough to travel that far and thus came to the [place] [facility]. Patient noted the onset of a fever at 0300 hours on November 04. This was associated with a headache. She has also had mild nausea and some diarrhea that has been nonbloody in nature. She has had no dysuria, sore throat or cough. Note that she still makes urine in spite of being a dialysis patient. She presented to the emergency room yesterday and which time blood cultures were accomplished, labs were drawn and patient received Tylenol. Her fever normalized from 104 F. she was discharged home with blood cultures pending. They grew out a g positive cocci in clusters and thus she was called to seek medical attention. Here in the emergency room patient does note that she is feeling like she may be having a fever and is requesting Tylenol or something for her fever. She notes mild nausea and diarrhea that is nonbloody. She has not had any vomiting. She has not noticed any sores redness or drainage. She has not had a cough. Related Data Home Medications ?Medication ?Instructions ?Recorded ?Confirmed carvedilol 12.5 mg tablet 12.5 mg PO BID 08/28/23 11/06/23 amlodipine 5 mg tablet 5 mg PO DAILY 11/06/23 11/06/23 clobetasol 0.05 % topical cream topical PRN 11/06/23 11/06/23 vitamin B complex-vitamin C-folic 1 tab PO DAILY 11/06/23 11/06/23 acid 0.8 mg tablet (Celine-Wally) Allergies Allergy/AdvReac Type Severity Reaction Status Date / Time No Known Drug Allergies Allergy Verified 09/19/24 20:36 Review of Systems Status of ROS Reports: 10 or more systems reviewed and unremarkable except as noted in History and below Const Reports: fever, chills and fatigue Eyes Denies: change in vision ENMT Denies: throat pain or nasal congestion Cardio Denies: chest pain, palpitations, swelling of feet/ankles, lightheadedness or sh ortness of breath with exertion Resp Denies: shortness of breath or cough GI Reports: abdominal pain, nausea and diarrhea; Denies: vomiting or blood in stool Denies: painful urination Musculo Denies: back pain Integ/Breast Denies: rash or redness Neuro Reports: headache Endo Reports: fatigue PFSH PFSH Surgical History History of umbilical hernia repair (09/26/03) ?Z98.890 - Other specified postprocedural states (ICD-10) ?Z87.19 - Personal history of other diseases of the digestive system (ICD-10) History of tubal ligation (~2002) ?Z98.51 - Tubal ligation status (ICD-10) History of cholecystectomy (04/19/10) ?Z90.49 - Acquired absence of other specified parts of digestive tract (ICD- 10) Family History Mother Stroke Diabetes Myocardial infarction, Onset Age: 55 Father Diabetes Brain tumor Brother Diabetes High blood pressure Sister Diabetes High blood pressure Social History What is your current living situation?: I presently have a place to live Problems where you live: declined to answer Problems where you live details: none In the past 12 months, utilities in danger of being shut off: yes In past 12 months, lack of transportation kept you from medical appts, meetings, work, or getting things needed for daily living: no In the past 12 mos, have been you worried that your food would run out before you had money to buy more?: sometimes true In the past 12 mos, the food you bought just didn't last and you didn't have money to buy more?: sometimes true Highest level of school completed/degree received: 9th grade Smoking Status: Never smoker Do you use any of these nicotine containing products: None How often do you have a drink containing alcohol: never AUDIT-C Alcohol total score: 0 Non-prescribed substance use: denies use Caffeine: Yes (coffee) How often does anyone, including family, friends and others, physically hurt you : never How often does anyone, including family, friends and others, insult or talk down to you: never How often does anyone, including family, friends and others, threaten you with harm: never How often does anyone, including family, friends and others, scream or curse at you: never Little interest or pleasure in doing things: nearly every day Feeling down, depressed, or hopeless: more than half the days service: No Exam Narrative Exam Narrative: Alert and oriented. Fatigued but nontoxic in appearance. Somewhat diaphoretic. Mentation is normal. Head is atraumatic normocephalic. Neck is supple. Oral cavity with moist mucous membranes. Heart with a tachycardic rate normal rhythm. Lungs are with distant breath sounds but no wheezing or crackles. Abdomen is soft nontender. Lower extremities without edema. No evidence of erythema or drainage. Const Vital Signs, click to edit/add: Vital Signs - 24 hr 11/07/23 11:11 11/07/23 11:12 11/07/23 11:15 Temperature 100.1 F H Pulse Rate 117 H 118 H Pulse Rate [Pulse Oximeter] 124 H Respiratory Rate 20 Blood Pressure Blood Pressure [Right Forearm] 150/92 H Pulse Oximetry 96 97 95 Oxygen Delivery Method Room Air 11/07/23 11:30 11/07/23 11:32 11/07/23 12:12 Temperature Pulse Rate 118 H 117 H 121 H Pulse Rate [Pulse Oximeter] Respiratory Rate 20 20 Blood Pressure 147/89 H 138/94 H Blood Pressure [Right Forearm] Pulse Oximetry 96 97 97 Oxygen Delivery Method Room Air Room Air 11/07/23 12:13 11/07/23 12:15 11/07/23 12:30 Temperature Pulse Rate 121 H 120 H 121 H Pulse Rate [Pulse Oximeter] Respiratory Rate Blood Pressure Blood Pressure [Right Forearm] Pulse Oximetry 96 97 96 Oxygen Delivery Method 11/07/23 12:31 11/07/23 12:45 11/07/23 13:00 Temperature Pulse Rate 122 H 122 H 123 H Pulse Rate [Pulse Oximeter] Respiratory Rate Blood Pressure 148/90 H Blood Pressure [Right Forearm] Pulse Oximetry 95 96 95 Oxygen Delivery Method 11/07/23 13:02 11/07/23 13:15 11/07/23 13:30 Temperature Pulse Rate 123 H 112 H 111 H Pulse Rate [Pulse Oximeter] Respiratory Rate Blood Pressure 123/71 Blood Pressure [Right Forearm] Pulse Oximetry 96 93 95 Oxygen Delivery Method 11/07/23 13:32 11/07/23 13:45 11/07/23 14:00 Temperature Pulse Rate 107 H 109 H 110 H Pulse Rate [Pulse Oximeter] Respiratory Rate 20 Blood Pressure 98/55 L Blood Pressure [Right Forearm] Pulse Oximetry 93 94 96 Oxygen Delivery Method 11/07/23 14:13 11/07/23 14:15 11/07/23 14:30 Temperature 99.3 F Pulse Rate 111 H 109 H Pulse Rate [Pulse Oximeter] Respiratory Rate Blood Pressure Blood Pressure [Right Forearm] Pulse Oximetry 94 93 Oxygen Delivery Method 11/07/23 14:31 11/07/23 14:36 11/07/23 14:39 Temperature Pulse Rate 110 H 108 H 108 H Pulse Rate [Pulse Oximeter] Respiratory Rate 20 20 20 Blood Pressure 66/44 L 83/56 L 83/45 L Blood Pressure [Right Forearm] Pulse Oximetry 93 94 94 Oxygen Delivery Method Room Air Room Air 11/07/23 14:42 11/07/23 14:45 11/07/23 14:46 Temperature Pulse Rate 107 H 101 H 100 Pulse Rate [Pulse Oximeter] Respiratory Rate 20 20 Blood Pressure 88/53 L 95/56 L Blood Pressure [Right Forearm] Pulse Oximetry 94 92 94 Oxygen Delivery Method Room Air Room Air 11/07/23 15:00 11/07/23 15:02 11/07/23 15:15 Temperature Pulse Rate 99 99 99 Pulse Rate [Pulse Oximeter] Respiratory Rate 20 Blood Pressure 97/68 Blood Pressure [Right Forearm] Pulse Oximetry 95 94 95 Oxygen Delivery Method Room Air 11/07/23 15:17 11/07/23 15:30 11/07/23 15:32 Temperature Pulse Rate 101 H 98 102 H Pulse Rate [Pulse Oximeter] Respiratory Rate 20 20 Blood Pressure 99/64 103/59 L Blood Pressure [Right Forearm] Pulse Oximetry 94 96 95 Oxygen Delivery Method Room Air Room Air 11/07/23 15:45 11/07/23 15:47 Temperature Pulse Rate 99 98 Pulse Rate [Pulse Oximeter] Respiratory Rate 20 Blood Pressure 112/60 Blood Pressure [Right Forearm] Pulse Oximetry 96 95 Oxygen Delivery Method Room Air Documenting provider has reviewed patient's vital signs: yes Course Course ED Course: Differential diagnosis includes but is not limited to sepsis, pneumonia, diverticulitis, other intra-abdominal infection, cellulitis, septicemia. Yesterday patient had a chest x-ray which showed no evidence of infiltrates. Labs included a white count elevated 18.31, lactate of 2.4 and creatinine of 7.1. Will repeat CBC, comprehensive panel, CRP, lactate, add procalcitonin and check on urinalysis. Urinalysis to date has no evidence of growth on culture. Reevaluation(s) Reevaluation #1: Patient initiated on vancomycin 2 g and Zosyn 2.25 g after discussion with pharmacist. Plan on transfer to [facility] as we do not have ability to hospitalized patient's needing dialysis. Reevaluation #2: Blood pressures dropped to 83 systolic although patient does not have any symptoms of low blood pressure or worsening status. Have ordered 100 mL bumps of normal saline. Obviously very cautious as she is a dialysis patient and did not do dialysis as scheduled today. Blood pressure responded very well and is now 112 systolic. Consultations Consultation #1: I had pleasure of speaking to Dr. Dale hospitalist at [facility] in regards to Leny's transfer. Currently they are on divert but he is confident that he should be able to get Leny to [facility] today with a number of discharge is they have pending. In the meantime no other changes to her current therapy except would need to repeat Zosyn at the 6 hour douglas if she is still here. Vital Signs Vital signs: Initial Vital Signs Pulse Rate 117 H 11/07/23 11:11 Pulse Oximetry 96 11/07/23 11:11 Vital Signs Pulse Rate 117 H 11/07/23 11:11 Pulse Oximetry 96 11/07/23 11:11 Temperature 99.3 F 11/07/23 14:13 Pulse Rate 98 11/07/23 15:47 Respiratory Rate 20 11/07/23 15:47 Blood Pressure 112/60 11/07/23 15:47 Pulse Oximetry 95 11/07/23 15:47 Oxygen Delivery Method Room Air 11/07/23 15:47 Medications Administered Medications: Discontinued Medications Generic Name Dose Route Start Last Admin Trade Name Can PRN Reason Stop Dose Admin Acetaminophen 650 mg 11/07/23 11:36 11/07/23 12:06 Acetaminophen 325 Mg Tablet PO 11/07/23 11:37 650 mg ONCE ONE Administration Vancomycin/PEG/NADA/Lysine/Water 2 gm in 400 mls @ 200 mls/hr 11/07/23 11:34 11/07/23 13:04 Vancomycin 2 Gm/400 Ml IVPB 11/07/23 13:33 200 mls/hr ONCE ONE Administration Protocol Piperacillin Sod/Tazobactam 100 mls @ 200 mls/hr 11/07/23 11:34 11/07/23 12:23 Sod 2.25 gm/ Sodium Chloride IVPB 11/07/23 11:35 200 mls/hr ONCE ONE Administration Sodium Chloride 100 mls @ 250 mls/hr 11/07/23 14:48 11/07/23 14:54 0.9 % Sodium Chloride 250 Ml IV 11/07/23 15:11 250 mls/hr .Q24M ONE Administration MDM - Fever MDM Narrative Medical decision making narrative: 1. Fever of unknown origin-patient meeting sepsis criteria. blood cultures from yesterday came positive for Gram-positive cocci in clusters. Patient has a white count elevated at 19 with a CRP of 18.4, lactate of 2.5 and procalcitonin of 30. Patient was initiated on vancomycin 2 g and Zosyn 2.25 g IV. Blood pressures have been stable and thus avoided any fluids as patient has not had dialysis for 48 hours. Urine culture from yesterday shows no growth at this time. CT of the chest abdomen and pelvis did not show any evidence of pneumonia, diverticulitis. Fever has been controlled with Tylenol. Note bec ause of kidney failure, need for dialysis, did not give the normal fluid bolus that 1 would expect with sepsis. 2. History of renal failure-creatinine today 7.4 Patient is a dialysis patient. 3. Pulmonary nodule-patient has an 11 mm pulmonary nodule right lung that will need outpatient follow-up with PET scan. This was discussed with patient. This was also discussed with accepting physician. 3. Disposition-attempting to transfer to [facility] Accepted by Dr. Dale Note episode of hypotension to 83 systolic without significant symptoms responded to Trendelenburg and fluids. EMS has arrived and will be transferring patient to [facility]. Recommended 100 ml bumps of saline if blood pressure goes below 90. It originally I had scheduled this transfer as ALS but as antibiotics have been completed, patient is stable will change this status to S. Medical Records Attestation: I reviewed the patient's medical records. Lab Data Attestation: I reviewed the patient's lab results. Labs: Lab Results 11/07/23 11/07/23 11/07/23 Range/Units 12:09 12:37 Unknown WBC 19.57 H (4.50-11.00) K/uL RBC 3.46 L (4.00-5.20) m/uL Hgb 11.1 L (12.0-16.0) gm/dL Hct 33.7 (33.0-51.0) % MCV 97 (80-100) fL MCH 32 (26-34) pg MCHC 33 (32-36) gm/dL RDW Coeff of William 15.0 (11.5-15.5) % Plt Count 123 L (140-440) K/uL Neut % (Auto) 95.9 H (42.0-72.0) % Lymph % (Auto) 1.7 L (20-44) % Perkins % (Auto) 1.8 (0.0-11.0) % Eos % (Auto) 0.1 (0.0-7.0) % Baso % (Auto) 0.1 (0.0-3.0) % Neut # (Auto) 18.80 H (1.7-7.0) K/uL Lymph # (Auto) 0.30 L (0.90-2.90) K/uL Perkins # (Auto) 0.40 (0.00-0.90) K/UL Eos # (Auto) 0.00 (0.00-0.50) K/uL Baso # (Auto) 0.00 (0.00-0.30) K/uL Abs Immat Gran (auto) 0.10 (0.00-0.30) K/uL Imm/Tot Granulo (auto) 0.4 % Sodium 131 L (135-149) mmol/L Potassium 4.3 (3.6-5.1) mmol/L Chloride 97 (96-114) mmol/L Carbon Dioxide 17 L (20-32) mmol/L Anion Gap 17 H (7-15) mEq/L BUN 61 H (5-24) mg/dL Creatinine 7.4 H (0.5-1.5) mg/dL Estimated Creat Clear 6.68 Estimated GFR 6 ml/min Glucose 139 H (60-115) mg/dL Lactate 2.5 H 1.4 (0.5-1.9) mmol/L Calcium 8.2 L (8.4-10.6) mg/dL Total Bilirubin 0.8 (0.1-1.5) mg/dL AST 35 (12-35) U/L ALT 34 (4-35) U/L Alkaline Phosphatase 83 (40-150) U/L C-Reactive Protein 18.4 H (0.5-1.0) mg/dL Total Protein 7.1 (6.0-8.3) g/dL Albumin 4.1 (3.3-5.0) g/dL Procalcitonin 30.10 H (<0.50) ng/mL Imaging Data CT Chest/Ab/Pelvis: Attestation: I have reviewed the pertinent imaging results. My impression: No evidence of pneumonia or diverticulitis. Radiologist's impression: CHEST: A right IJ catheter ends in the proximal right atrium. The heart size is normal. There is no mediastinal or hilar adenopathy or mass. No pericardial effusion. Small to moderate-sized hiatal hernia. Left basilar opacity probably atelectasis or scarring. Right apical nodule measuring 11 millimeters in greatest dimension from coronal image number 101 a PET-CT is advised for further evaluation at a clinically appropriate time. Other options according to Fleischner society criteria for nodules of this size would be a three-month follow-up CT or a biopsy. No pleural effusion or pneumothorax. ABDOMEN AND PELVIS: LIVER/BILIARY SYSTEM:The liver is normal in size and configuration given the lack of intravenous contrast. There is no visible focal mass and there is no intra- or extra hepatic biliary ductal dilatation.Surgically absent gallbladder ADRENALS: Normal non-contrast appearance KIDNEYS, URETERS and BLADDER:The kidneys appear normal given lack of intravenous contrast. No visible mass, calculus or hydronephrosis. The ureters and bladder as visualized appear normal. SPLEEN:Normal non-contrast appearance. PANCREAS: Normal non-contrast appearance. RETROPERITONEUM and MESENTERY: There is no mass, adenopathy or aortic aneurysm. GASTROINTESTINAL SYSTEM: There is no evidence of diverticulitis, colitis, mechanical obstruction, or appendicitis. The small bowel as visualized appears normal.Diverticulosis especially the sigmoid colon. No acute appearing GI finding. PELVIS: No mass, adenopathy or free fluid. OSSEOUS STRUCTURES and ABDOMINAL WALL: There is an age-appropriate appearance of the osseous structures.Fat containing ventral hernia OTHER: No free fluid or free air. IMPRESSION: 1. CHEST: There is an 11 millimeter right upper lobe nodule for which further evaluation is recommended. There are several options offered by the Fleischner society criteria for a nodule of this size. I would recommend a PET-CT in the nonacute care setting. Left basilar atelectasis or scarring. Normal pleural spaces 2. ABDOMEN AND PELVIS: Diverticulosis without evidence of diverticulitis, colitis or obstruction. Status post cholecystectomy. Fat containing ventral hernia. No acute appearing finding 3. OSSEOUS STRUCTURES: No acute appearing abnormality Critical Care Time Critical Care Time Critical Care Time: Yes Attestation: The patient required my highest level preparedness to intervene emergently and I personally spent this critical care time directly and personally managing the patient. This critical care time included: Obtaining a history; Examining the patient; Pulse oximetry; Ordering and reviewing of studies; Arranging urgent treatment with development of a management plan; Evaluation of patients response to treatment; Frequent reassessment discussions with other providers. This critical care time was performed to assess and manage the high probability of imminent life-threatening deterioration that could result in multiorgan failure. It was exclusive of separate billable procedures and treating other patients and teaching time. Total Critical Care Time in Minutes: 60 Discharge Plan Discharge Clinical Impression: Fever of unknown origin, Blood bacterial culture positive, Dialysis patient Sepsis Qualifiers: Sepsis type: sepsis due to unspecified organism Sepsis acute organ dysfunction status: without acute organ dysfunction Qualified Code(s): A41.9 - Sepsis, unspecified organism Patient Disposition: [facility] Discharge Location: [facility] Condition: Improved
--- NOTE | 2023-11-07 11:38 | CRLHL7_ITS ---
For Patients: As a result of the 21st Century Cures Act, medical imaging exams and procedure reports are released immediately into your electronic medical record. You may view this report before your referring provider. If you have questions, please contact your health care provider. INDICATION: Fever. Diarrhea. End-stage renal patient on dialysis COMPARISON: No prior chest CTs. I have reviewed an abdomen pelvis CT from May 08, 2022 TECHNIQUE: CT examination of the chest, abdomen and pelvis was performed without intravenous contrast. Thin section axial images were obtained from the thoracic through the pubic symphysis. Oral contrast was not administered. Sagittal and coronal reformatted imaging was performed Please note that all CT scans at this facility use dose modulation, iterative reconstruction, and/or weight-based dosing when appropriate to reduce radiation dose to as low as reasonably achievable. FINDINGS: CHEST: A right IJ catheter ends in the proximal right atrium. The heart size is normal. There is no mediastinal or hilar adenopathy or mass. No pericardial effusion. Small to moderate-sized hiatal hernia. Left basilar opacity probably atelectasis or scarring. Right apical nodule measuring 11 millimeters in greatest dimension from coronal image number 101 a PET-CT is advised for further evaluation at a clinically appropriate time. Other options according to Fleischner society criteria for nodules of this size would be a three-month follow-up CT or a biopsy. No pleural effusion or pneumothorax. ABDOMEN AND PELVIS: LIVER/BILIARY SYSTEM:The liver is normal in size and configuration given the lack of intravenous contrast. There is no visible focal mass and there is no intra- or extra hepatic biliary ductal dilatation.Surgically absent gallbladder ADRENALS: Normal non-contrast appearance KIDNEYS, URETERS and BLADDER:The kidneys appear normal given lack of intravenous contrast. No visible mass, calculus or hydronephrosis. The ureters and bladder as visualized appear normal. SPLEEN:Normal non-contrast appearance. PANCREAS: Normal non-contrast appearance. RETROPERITONEUM and MESENTERY: There is no mass, adenopathy or aortic aneurysm. GASTROINTESTINAL SYSTEM: There is no evidence of diverticulitis, colitis, mechanical obstruction, or appendicitis. The small bowel as visualized appears normal.Diverticulosis especially the sigmoid colon. No acute appearing GI finding. PELVIS: No mass, adenopathy or free fluid. OSSEOUS STRUCTURES and ABDOMINAL WALL: There is an age-appropriate appearance of the osseous structures.Fat containing ventral hernia OTHER: No free fluid or free air. IMPRESSION: 1. CHEST: There is an 11 millimeter right upper lobe nodule for which further evaluation is recommended. There are several options offered by the Fleischner society criteria for a nodule of this size. I would recommend a PET-CT in the nonacute care setting. Left basilar atelectasis or scarring. Normal pleural spaces 2. ABDOMEN AND PELVIS: Diverticulosis without evidence of diverticulitis, colitis or obstruction. Status post cholecystectomy. Fat containing ventral hernia. No acute appearing finding 3. OSSEOUS STRUCTURES: No acute appearing abnormality Please note that all CT scans at this facility use dose modulation, iterative reconstruction, and/or weight-based dosing when appropriate to reduce radiation dose to as low as reasonably achievable. Dictated by Edilberto Lo MD @ 11/07/2023 12:36:54 PM (Electronically Signed)
[2023-11-07] MEDS: ACETAMINOPHEN 325 MG TABLET 650 MG PO (12:06)
--- OUTSIDE RECORDS SUMMARY | 2023-11-07 12:19 | XMS_ITS | Encounter Summary ---
Author Organization [facility] Address [address] [place] [id number] Care Team Providers Care Reflow Operator Name Role Phone None Reported, Pcp Primary Care Provider Unavail able Reason for Visit * Reason Comments ENDRA (acute kidney injury) Encounter Details Date Type Department Care Team ([facility] st Contact Info) Description 10/17/2023 Documentation Division of Nephrology and Hypertension, [facility], in [place], [place] [address] [place] [address] Melly Goldstein R.N. [address] [place] [address] NEDRA (acute kidney injury) Social History Tobacco Use Types Packs/Day Years Used Date Smoking Tobacco: Never Smokeless Tobacco: Never Alcohol Use Standard Drinks/Week Comments Never 0 (1 standard drink = 0.6 oz pur e alcohol) [facility] Utilities Answer Date Recorded In the past 12 months has e [employer], gas, oil, or water [employer] threatened to shut off services in your [...] living situation today? 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 - 10/17/2023 9:41 AM CDT Encounter created in error documented in this encounter Plan of Treatment Upcoming Encounters Date Type Department Care Team (Latest Contact Info) Description 11/27/2023 8:30 AM CDT Appointment Department of Radiology, [facility], in [place], [place] [address] [place] [address] Jo Root M.D., Ph.D. [address] [place] [phone] Discharge Disposition: Home or Self Care 11/27/2023 10:30 AM CDT Nurse Only Division of Nephrology and Hypertension in [place], [place] [address] [place] [address] Jo Root M.D., Ph.D. [address] [place] [phone] 11/27/2023 1:00 PM CDT Comprehensive Visit Division of Vascular and Endovascular Surgery in [place], [place] [address] [place] [address] Jo Root M.D., Ph.D. [address] [place] [address] documented as of this encounter Visit Diagnoses Not on filedocumented in this encounter Care Teams Reflow Operator Relationship Specialty Start Date End Date None Reported, Pcp PCP - General Family Medicine 03/10/23 documented as of this encounter
--- OUTSIDE RECORDS SUMMARY | 2023-11-07 12:19 | XMS_ITS | Encounter Summary ---
Author Organization [facility] Address [address] [place] [address] Care Team Providers Care Nicker And Breaker Name Role Phone None Reported, Pcp Primary Care Provider Unavail able Encounter Details Date Type Department Care Team (Late st Contact Info) Description 10/13/2023 Orders Only Division of Nephrology and Hypertension, [facility], in [place], [place] [address] [place] [phone] Nicholas Tracey, MUSEUM OR ZOO DIRECTOR, C.N.P., M.S.N. [address] [place] [phone] Social History Tobacco Use Types Packs/Day Years Used Date Smoking Tobacco: Never Smokeless Tobacco: Never Alcohol Use Standard Drinks/Week Comments Never 0 (1 standard drink = 0.6 oz pur e alcohol) [facility] Utilities Answer Date Recorded In the past 12 months has th e electric, gas, oil, or water [employer] threatened to shut off services in [...] your living situation today? I have a [facility] place to live 03/13/2023 Sex and Gender Information Value Date Recorded Sex Assigned at Female 03/13/2023 1:38 PM FOOD ORDER EXPEDITER Gender Identity Female 03/13/2023 1:42 PM FOOD ORDER EXPEDITER Sexual Orientation Straight 03/13/2023 1: 42 PM FOOD ORDER EXPEDITER documented as of this encounter Plan of Treatment Upcoming Encounters Date Type Department Care Team (Latest Contact Info) Description 11/27/2023 8:30 AM CDT Appointment Department of Radiology, [facility], in [place], [place] [address] [place] [address] Jo Root M.D., Ph.D. [address] [place] [phone] Discharge Disposition: Home or Self Care 11/27/2023 10:30 AM CDT Nurse Only Division of Nephrology and Hypertension in [place], [place] [address] [place] [address] Jo Root M.D., Ph.D. [address] [place] [phone] 11/27/2023 1:00 PM CDT Comprehensive Visit Division of Vascular and Endovascular Surgery in [place], [place] [address] [place] [address] Jo Root M.D., Ph.D. [address] [place] [phone] documented as of this encounter Visit Diagnoses Not on filedocumented in this encounter Care Teams Nicker And Breaker Relationship Specialty Start Date End Date None Reported, Pcp PCP - General Family Medicine 03/10/23 documented as of this encounter
--- OUTSIDE RECORDS SUMMARY | 2023-11-07 12:19 | XMS_ITS | Referral Summary ---
Author Organization [facility] Address [address] [place] [address] Care Team Providers Care Wrist Liner Name Role Phone No Ref-Primary, Physician Primary [...] of Treatment Not on file Care Teams Wrist Liner Relationship Specialty Start Date End Date No Ref-Primary, Physician PCP - General 05/25/21
--- OUTSIDE RECORDS SUMMARY | 2023-11-07 12:19 | XMS_ITS | Clinical Summary ---
Author Organization [facility] Address [address] [place] [address] Care Team Providers Care Clinical Haematologist Name Role Phone None Reported, Pcp Primary Care Provider Unavail able Source Comments Patient records contain information from all sites at [facility]. For routine questions regarding patient records, call [phone] during business hours, M-F 8:00 AM - 5:00 PM Central Time. Record requests for emergency care only can be directed to [phone] at any time.[facility] Allergies No known active allergies Medications Medication [...] Communication Division of Nephrology and Hypertension in [place], [place] [address] [place] [address] Jo Root M.D., Ph.D. 10/17/2023 Documentation Division of Nephrology and Hypertension, [facility], in [place], [place] [address] [place] [address] Melly Goldstein R.N. NEDRA (acute kidney injury) 10/13/2023 Orders Only Division of Nephrology and Hypertension, [facility], in [place], [place] [address] [place] [address] Nicholas Tracey, MAGY, C.N.P., M.S.N. 10/09/2023 12:17 PM CDT - 10/09/2023 3:11 PM CDT Hospital Encounter Department of Radiology in [place], [place] [address] [place] [address] Yin Garcia APRN, C.N.P., D.N.P. Emigdio Colon M.D. Hemodialysis Status (HCC) Discharge Disposition: Home or Self Care 10/08/2023 Documentation Division of Nephrology and Hypertension in [place], [place] [address] [place] [address] Rosanna Serrato, R.N. 10/08/2023 Orders Only Division of Nephrology and Hypertension in [place], [place] [address] [place] [phone] Yin Garcia APRN, C.N.P., D.N.P. Hemodialysis Status (HCC) (Primary Dx) 09/24/2023 Episode Changes Transplant Center in [place], [place] [address] [place] [address] Shonda Florence 09/19/2023 Episode Changes Division of Nephrology and Hypertension in [place], [place] [address] [place] [address] Jo Root M.D., Ph.D. from Last 3 Months Immunizations Name Administration Dates Next Due DTaP ([employer], [employer]) 03/08/2009 Influenza, Unspecified 11/27/2009,11/17/2008 Social History Tobacco Use Types Packs/Day Years Used Date Smoking Tobacco: Never Smokeless Tobacco: Never Tobacco Cessation:Counseling Given: Not Answered Alcohol Use Standard Drinks/Week Comments Never 0 (1 standard drink = 0.6 oz pur e alcohol) [facility] Utilities Answer Date Recorded In the past 12 months has e [employer], gas, oil, or water company threatened to [...] Sex Assigned at Female 03/13/2023 1:38 PM INSPECTOR [employer]ODU[employer] Gender Identity Female 03/13/2023 1:42 PM INSPECTOR [employer] Sexual Orientation Straight 03/13/2023 1: 42 PM INSPECTOR [employer] Last Filed Vital Signs Vital Sign Reading [...] Body Mass Index 44.76 03/13/2023 11:03 AM INSPECTOR [employer] Plan of Treatment Upcoming Encounters Date Type Department Care Team (Latest Contact Info) Description 11/27/2023 8:30 AM CDT Appointment Department of Radiology, [facility], in [place], [place] [address] [place] [address] Jo Root M.D., Ph.D. [address] [place] [phone] Discharge Disposition: Home or Self Care 11/27/2023 10:30 AM CDT Nurse Only Division of Nephrology and Hypertension in [place], [place] [address] [place] [phone] Jo Root M.D., Ph.D. [address] [place] [phone] 11/27/2023 1:00 PM CDT Comprehensive Visit Division of Vascular and Endovascular Surgery in [place], [place] [address] [place] [address] Jo Root M.D., Ph.D. [address] [place] [phone] Health Maintenance Due Date Last Done Comments [...] FUNCTION PANEL, S Routine 04/08/2023 12:39 PM INSPECTOR [employer] Failure Renal Acute (Acute Kidney Injury) (HCC) [...] catheter were prepped and draped sterilely. A shoe treer view showed the tip of the catheter [...] obtained from the patient via in person digital color press operator.. Immediately prior to starting the procedure, in [...] dialysis catheter were prepped anddraped sterilely. A shoe treer view showed the tip of the catheter [...] consent obtained from thepatient via in person digital color press operator.. Immediately prior tostarting the procedure, in the [...] (ABNORMAL) Renal Function Panel (04/08/2023 12:39 PM INSPECTOR [employer]) Potassium, S 5.0 3.6 - 5.2 mmol/L 04/08/2023 2:11 PM INSPECTOR [employer] DTL Sodium, S 139 135 - 145 mmol/L 04/08/2023 2:11 PM INSPECTOR [employer] DTL Chloride, S 108(H) 98 - 107 mmol/L 04/08/2023 2:11 PM INSPECTOR [employer] DTL Bicarbonate, S 18(L) 22 - 29 mmol/L 04/08/2023 2:11 PM INSPECTOR [employer] DTL Anion Gap 13 7 - 15 04/08/2023 2:11 PM INSPECTOR [employer] DTL BUN (Blood Urea Nitrogen), S 71(H) 6 - 21 mg/dL 04/08/2023 2:11 PM INSPECTOR [employer] DTL Creatinine 4.41(H) 0.59 - 1.04 mg/dL 04/08/2023 2:11 PM INSPECTOR [employer] DTL Estimated GFR (eGFR) <15(L) >=60 mL/min/BSA 04/08/2023 2:11 PM INSPECTOR [employer] DTL Comment: Estimated GFR calculated using the 2020 CKD_EPI creatinine equation. Calcium, Total, S 8.8 8.6 - 10.0 mg/dL 04/08/2023 2:11 PM INSPECTOR [employer] DTL Glucose, S 103 70 - 140 mg/dL 04/08/2023 2:11 PM INSPECTOR [employer] DTL Albumin, S 4.0 3.5 - 5.0 g/dL 04/08/2023 2:11 PM INSPECTOR [employer] DTL Phosphorus (Inorganic), S 4.9(H) 2.5 - 4.5 mg/dL 04/08/2023 2:11 PM INSPECTOR [employer] DTL Blood (Blood, Venous) 04/08/2023 12:39 PM INSPECTOR [employer] 04/08/2023 1:34 PM INSPECTOR [employer] Yin Garcia APRN, C.N.P., D.N.P. LAB BLOOD ADD-ON [facility] [address] [place] [address], [place] DTL Formerly named [facility] [address] [place] [address] from Last 3 Months or Most Recently Relevant to Health Maintenance Advance Directives For more information, please contact: [phone] * Full Code (Latest Code Status on File) Date Activated Date Inactivated Comments 10/09/2023 1:45 PM Question Answer Comments Full Code: Not Discussed Due to: Patient not available * Full Code Date Activated Date Inactivated Comments 03/17/2023 12:45 PM 03/17/2023 5:05 PM Question Answer Comments Full Code: Not Discussed Due to: Not medically appropriate Care Teams Clinical Haematologist Relationship Specialty Start Date End Date None Reported, Pcp PCP - General Family Medicine 03/10/23
--- OUTSIDE RECORDS SUMMARY | 2023-11-07 12:19 | XMS_ITS ---
Author Organization [facility] Address [address] [place] [address] Care Team Providers Care Rippler Name Role Phone Unavailable Unavailable Unavailable Surgery Details Not on file Complications Check Surgery Details section. Procedure Estimated Blood Loss Check Surgery Details section. Procedure Findings Check Surgery Details section. Procedure Specimens Taken Check Surgery Details section.
--- OUTSIDE RECORDS SUMMARY | 2023-11-07 12:19 | XMS_ITS | Referral Summary ---
Author Organization [facility] Address [address] [place] [address] Care Team Providers Care Veterinary Medical Officer Name Role Phone None Reported, Pcp Primary Care Provider Unavail able Source Comments Patient records contain information from all sites at [facility]. For routine questions regarding patient records, call [phone] during business hours, M-F 8:00 AM - 5:00 PM Central Time. Record requests for emergency care only can be directed to [phone] at any time.[facility] Encounters Date Type Department Care Team Description 11/07/2023 Clinical Communication Division of Nephrology and Hypertension in [place], [place] [address] [place] [address] Jo Root M.D., Ph.D. 10/17/2023 Documentation Division of Nephrology and Hypertension, [facility], in [place], [place] [address] [place] [phone] Melly Goldstein, RJanis. NEDRA (acute kidney injury) 10/13/2023 Orders Only Division of Nephrology and Hypertension, [facility], in [place], [place] [address] [place] [phone] Nicholas Tracey APRN, C.N.P., M.S.N. 10/09/2023 12:17 PM CDT - 10/09/2023 3:11 PM CDT Hospital Encounter Department of Radiology in [place], [place] [address] [place] [address] Yin Garcia APRN, C.N.P., D.N.P. [place], Emigdio H, M.D. Hemodialysis Status (HCC) Discharge Disposition: Home or Self Care 10/08/2023 Documentation Division of Nephrology and Hypertension in [place], [place] [address] [place] [address] Rosanna Serrato, RJanis. 10/08/2023 Orders Only Division of Nephrology and Hypertension in [place], [place] [address] [place] [address] Yin Garcia APRN, C.N.P., D.N.P. Hemodialysis Status (HCC) (Primary Dx) 09/24/2023 Episode Changes Transplant Center in [place], [place] [address] [place] [phone] Shonda Florence 09/19/2023 Episode Changes Division of Nephrology and Hypertension in [place], [place] [address] [place] [address] Jo Root M.D., Ph.D. from Last 3 [...] In the past 12 months has e [employer], gas, oil, or water [employer] threatened to shut off services in your [...] Sex Assigned at Female 03/13/2023 1:38 PM PEOPLE MANAGER Gender Identity Female 03/13/2023 1:42 PM PEOPLE MANAGER Sexual Orientation Straight 03/13/2023 1: 42 PM PEOPLE MANAGER Last Filed Vital Signs Vital Sign Reading [...] Body Mass Index 44.76 03/13/2023 11:03 AM PEOPLE MANAGER Plan of Treatment Upcoming Encounters Date Type Department Care Team (Latest Contact Info) Description 11/27/2023 8:30 AM CDT Appointment Department of Radiology, [facility], in [place], [place] [address] [place] [address] Jo Root M.D., Ph.D. [address] [place] [phone] Discharge Disposition: Home or Self Care 11/27/2023 10:30 AM CDT Nurse Only Division of Nephrology and Hypertension in [place], [place] [address] [place] [phone] Jo Root M.D., Ph.D. [address] [place] [phone] 11/27/2023 1:00 PM CDT Comprehensive Visit Division of Vascular and Endovascular Surgery in [place], [place] [address] [place] [address] Jo Root M.D., Ph.D. [address] [place] [phone] Procedures Procedure Name Priority Date/Time Associated Diagnosis Comments IR DIALYSIS / HIGH FLOW CATHETER EXCHANGE RAD - Routine (most inpatients and all outpatients) 10/09/2023 2:12 PM CDT Hemodialysis Status (HCC) RENAL FUNCTION PANEL, S Routine 04/08/2023 12:39 PM PEOPLE MANAGER Failure Renal Acute (Acute Kidney Injury) (HCC) [...] catheter were prepped and draped sterilely. A insurance underwriting assistant view showed the tip of the catheter [...] obtained from the patient via in person township supervisor.. Immediately prior to starting the procedure, in [...] dialysis catheter were prepped anddraped sterilely. A insurance underwriting assistant view showed the tip of the catheter [...] consent obtained from thepatient via in person township supervisor.. Immediately prior tostarting the procedure, in the [...] (ABNORMAL) Renal Function Panel (04/08/2023 12:39 PM PEOPLE MANAGER) Potassium, S 5.0 3.6 - 5.2 mmol/L 04/08/2023 2:11 PM PEOPLE MANAGER DTL Sodium, S 139 135 - 145 mmol/L 04/08/2023 2:11 PM PEOPLE MANAGER DTL Chloride, S 108(H) 98 - 107 mmol/L 04/08/2023 2:11 PM PEOPLE MANAGER DTL Bicarbonate, S 18(L) 22 - 29 mmol/L 04/08/2023 2:11 PM PEOPLE MANAGER DTL Anion Gap 13 7 - 15 04/08/2023 2:11 PM PEOPLE MANAGER DTL BUN (Blood Urea Nitrogen), S 71(H) 6 - 21 mg/dL 04/08/2023 2:11 PM PEOPLE MANAGER DTL Creatinine 4.41(H) 0.59 - 1.04 mg/dL 04/08/2023 2:11 PM PEOPLE MANAGER DTL Estimated GFR (eGFR) <15(L) >=60 mL/min/BSA 04/08/2023 2:11 PM PEOPLE MANAGER DTL Comment: Estimated GFR calculated using the 2020 CKD_EPI creatinine equation. Calcium, Total, S 8.8 8.6 - 10.0 mg/dL 04/08/2023 2:11 PM PEOPLE MANAGER DTL Glucose, S 103 70 - 140 mg/dL 04/08/2023 2:11 PM PEOPLE MANAGER DTL Albumin, S 4.0 3.5 - 5.0 g/dL 04/08/2023 2:11 PM PEOPLE MANAGER DTL Phosphorus (Inorganic), S 4.9(H) 2.5 - 4.5 mg/dL 04/08/2023 2:11 PM PEOPLE MANAGER DTL Blood (Blood, Venous) 04/08/2023 12:39 PM PEOPLE MANAGER 04/08/2023 1:34 PM PEOPLE MANAGER Yin Garcia APRN, C.N.P., D.N.P. LAB BLOOD ADD-ON [facility] [address] [place] [address], [place] [facility] [address] [place] [address] from Last 3 Months or Most Recently Relevant to Health Maintenance Advance Directives For more information, please contact: [phone] * Full Code (Latest Code Status on File) Date Activated Date Inactivated Comments 10/09/2023 1:45 PM Question Answer Comments Full Code: Not Discussed Due to: Patient not available * Full Code Date Activated Date Inactivated Comments 03/17/2023 12:45 PM 03/17/2023 5:05 PM Question Answer Comments Full Code: Not Discussed Due to: Not medically appropriate Care Teams Veterinary Medical Officer Relationship Specialty Start Date End Date None Reported, Pcp PCP - General Family Medicine 03/10/23
--- OUTSIDE RECORDS SUMMARY | 2023-11-07 12:19 | XMS_ITS | Encounter Summary ---
Author Organization [facility] Address [address] [place] [address] Care Team Providers Care Radon Inspector Name Role Phone None Reported, Pcp Primary Care Provider Unavail able Encounter Details Date Type Department Care Team (Late st Contact Info) Description 11/07/2023 Clinical Communication Division of Nephrology and Hypertension in [place], [place] [address] [place] [phone] Jo Root M.D., Ph.D. [address] [place] [phone] Social History Tobacco Use Types Packs/Day Years Used Date Smoking Tobacco: Never Smokeless Tobacco: Never Alcohol Use Standard Drinks/Week Comments Never 0 (1 standard drink = 0.6 oz pur e alcohol) [facility] Utilities Answer Date Recorded In the past 12 months has th e [employer], gas, oil, or water [employer] threatened to shut off services in your [...] your living situation today? I have a [facility] place to live 03/13/2023 Sex and Gender Information Value Date Recorded Sex Assigned at Female 03/13/2023 1:38 PM PRISON CLASSIFICATION COUNSELOR Gender Identity Female 03/13/2023 1:42 PM PRISON CLASSIFICATION COUNSELOR Sexual Orientation Straight 03/13/2023 1: 42 PM PRISON CLASSIFICATION COUNSELOR documented as of this encounter Miscellaneous Notes * Telephone Encounter - Jo Root M.D., Ph.D. - 11/07/2023 9:33 AM CDT I have contacted patient this morning. She is a hemodialysis patient at [facility] on a Friday schedule via hemodialysis catheter, last exchanged on 10/09/2023. Her last dialysis was Friday (11/04) and it was uneventful. She went to the ED at [facility] yesterday (), she had a fever of 104 F and her WBC were 18,000. She had blood and urine cultures collected.She went home overnight. She was called in by the [facility] ED as her blood cultures are positive for Gram positive cocci and her urine grew Klebsiella. She was recommended to go back to the ED at [place] or to go directly to [facility] as she is due for dialysis today. Patient does not feel well enough to travel by car by herself to [place], and she plans to go to the ED in [place], to then be transferred to [place] for treatment of sepsis and dialysis needs. I have contacted [facility] for awareness. Hodan Berg M.D., Ph.D. documented in this encounter Plan of Treatment Upcoming Encounters Date Type Department Care Team (Latest Contact Info) Description 11/27/2023 8:30 AM CDT Appointment Department of Radiology, [facility], in [place], [place] [address] [place] [phone] Jo Root M.D., Ph.D. [address] [place] [phone] Discharge Disposition: Home or Self Care 11/27/2023 10:30 AM CDT Nurse Only Division of Nephrology and Hypertension in [place], [place] [address] [place] [phone] Jo Root M.D., Ph.D. [address] [place] [phone] 11/27/2023 1:00 PM CDT Comprehensive Visit Division of Vascular and Endovascular Surgery in [place], [place] [address] [place] [phone] Jo Root M.D., Ph.D. [address] [place] [phone] documented as of this encounter Visit Diagnoses Not on filedocumented in this encounter Care Teams Radon Inspector Relationship Specialty Start Date End Date None Reported, Pcp PCP - General Family Medicine 03/10/23 documented as of this encounter
--- OUTSIDE RECORDS SUMMARY | 2023-11-07 12:19 | XMS_ITS | Clinical Summary ---
Author Organization [facility] Address [address] [place] [address] Care Team Providers Care Advertising Representative Name Role Phone No Ref-Primary, Physician Primary [...] age to complete this topic Care Teams Advertising Representative Relationship Specialty Start Date End Date No Ref-Primary, Physician PCP - General 05/25/21
--- OUTSIDE RECORDS SUMMARY | 2023-11-07 12:20 | XMS_ITS | Encounter Summary ---
Author Organization [facility] Address [address] [place] [address] Care Team Providers Care Net Web Developer Name Role Phone None Reported, Pcp Primary Care Provider Unavail able Encounter Details Date Type Department Care Team (Late st Contact Info) Description 09/24/2023 Episode Changes Transplant Center in [place], [place] [address] [place] [phone] Shonda Florence Social History Tobacco Use Types Packs/Day Years Used Date Smoking Tobacco: Never Smokeless Tobacco: Never Alcohol Use Standard Drinks/Week Comments Never 0 (1 standard drink = 0.6 oz pur e alcohol) [facility] Utilities Answer Date Recorded In the past 12 months has e electric, gas, oil, or water [employer] threatened to shut off services in your [...] your living situation today? I have a [facility] place to live 03/13/2023 Sex and Gender Information Value Date Recorded Sex Assigned at Female 03/13/2023 1:38 PM DERMATOLOGY PROCEDURAL PHYSICIAN Gender Identity Female 03/13/2023 1:42 PM DERMATOLOGY PROCEDURAL PHYSICIAN Sexual Orientation Straight 03/13/2023 1: 42 PM DERMATOLOGY PROCEDURAL PHYSICIAN documented as of this encounter Plan of Treatment Upcoming Encounters Date Type Department Care Team (Latest Contact Info) Description 11/27/2023 8:30 AM CDT Appointment Department of Radiology, [facility], in [place], [place] [address] [place] [address] Jo Root M.D., Ph.D. [address] [place] [phone] Discharge Disposition: Home or Self Care 11/27/2023 10:30 AM CDT Nurse Only Division of Nephrology and Hypertension in [place], [place] [address] [place] [address] Jo Root M.D., Ph.D. [address] [place] [phone] 11/27/2023 1:00 PM CDT Comprehensive Visit Division of Vascular and Endovascular Surgery in [place], [place] [address] [place] [phone] Jo Root M.D., Ph.D. [address] [place] [phone] documented as of this encounter Visit Diagnoses Not on filedocumented in this encounter Care Teams Net Web Developer Relationship Specialty Start Date End Date None Reported, Pcp PCP - General Family Medicine 03/10/23 documented as of this encounter
--- OUTSIDE RECORDS SUMMARY | 2023-11-07 12:20 | XMS_ITS | Encounter Summary ---
Author Organization [facility] Address [address] [place] [address] Care Team Providers Care Manager Ed Name Role Phone None Reported, Pcp Primary Care Provider Unavail able Reason for Referral * Outpatient (Routine) - Authorized Specialty Diagnoses / Procedures Referred By Crow olivo Referred To Contact Dermatology Diagnoses Jo Holder M.D., Ph.D. [address] [place] [phone] [facility] Referral ID Status Reason Start Date Expiration Date Visits Requested Visits Authorized [id number] Authorized Specialty Services Required 08/04/2023 02/02/2025 1 1 Encounter Details Date Type Department Care Team (Late st Contact Info) Description 08/04/2023 Orders Only Division of Nephrology and Hypertension in [place], [place] [address] [place] [phone] Jo Root M.D., Ph.D. [address] [place] [phone] Alexandre (Primary Dx) Social History Tobacco Use Types Packs/Day Years Used Date Smoking Tobacco: Never Smokeless Tobacco: Never Alcohol Use Standard Drinks/Week Comments Never 0 (1 standard drink = 0.6 oz pur e alcohol) [facility] Utilities Answer Date Recorded In [...] Sex Assigned at Female 03/13/2023 1:38 PM AIRPLANE CAPTAIN Gender Identity Female 03/13/2023 1:42 PM AIRPLANE CAPTAIN Sexual Orientation Straight 03/13/2023 1: 42 PM AIRPLANE CAPTAIN documented as of this encounter Plan of Treatment Upcoming Encounters Date Type Department Care Team (Latest Contact Info) Description 11/27/2023 8:30 AM CDT Appointment Department of Radiology, [facility], in [place], [place] [address] [place] [address] Jo Root M.D., Ph.D. [address] [place] [address] Discharge Disposition: Home or Self Care 11/27/2023 10:30 AM CDT Nurse Only Division of Nephrology and Hypertension in [place], [place] [address] [place] [address] Jo Root M.D., Ph.D. 200 [place] [address] 11/27/2023 1:00 PM CDT Comprehensive Visit Division of Vascular and Endovascular Surgery in [place], [place] [address] [place] [address] Jo Root M.D., Ph.D. 200 [place] [address] Scheduled Referrals Name Type Priority Associated Diagnoses Order Schedule Dermatology - General consult (clinic) Outpatient Referral Routine Rash Expected: 08/04/2023, Expires: 11/03/2024 documented as of this encounter Visit Diagnoses Diagnosis Rash- Primary documented in this encounter Care Teams Manager Ed Relationship Specialty Start Date End Date None Reported, Pcp PCP - General Family Medicine 03/10/23 documented as of this encounter
--- OUTSIDE RECORDS SUMMARY | 2023-11-07 12:20 | XMS_ITS | Encounter Summary ---
Author Organization [facility] Address [address] [place] [address] Care Team Providers Care Poker Prop Player Name Role Phone None Reported, Pcp Primary Care Provider Unavail able Reason for Referral * Transplant (Routine) - Authorized Specialty Diagnoses / Procedures Referred By Contac t Referred To Contact Transplant Diagnoses Chronic Kidney Disease Stage 5 GFR Less Than 15 Dialysis Dependent (HCC) Jo Root M.D., Ph.D. [address] [place] [phone] [facility] Referral ID Status Reason Start Date Expiration Date V isits Requested Visits Authorized [id number] Authorized 08/01/2023 01/30/2025 1 1 * Outpatient (Routine) - Authorized Specialty Diagnoses / Procedures Referred By Contac t Referred To Contact Diagnoses Chronic Kidney Disease Stage 5 GFR Less Than 15 Dialysis Dependent (HCC) Procedures US Upper Extremity Bilateral Dialysis Mapping Jo Root M.D., Ph.D. [address] [place] [phone] [facility] Referral ID Status Reason Start Date Expiration Date V isits Requested Visits Authorized [id number] Authorized 08/01/2023 07/31/2024 1 1 * Outpatient (Routine) - Authorized Specialty Diagnoses / Procedures Referred By Contac t Referred To Contact Nephrology and Hypertension / Dialysis Diagnoses Chronic Kidney Disease Stage 5 GFR Less Than 15 Dialysis Dependent (HCC) Jo Root M.D., Ph.D. [address] [place] [phone] [facility] Referral ID Status Reason Start Date Expiration Date V isits Requested Visits Authorized [id number] Authorized 08/01/2023 01/30/2025 1 1 * Outpatient (Routine) - Authorized Specialty Diagnoses / Procedures Referred By Contac t Referred To Contact Nephrology and Hypertension Jo Root M.D., Ph.D. [address] [place] [phone] [facility] Referral ID Status Reason Start Date Expiration Date V isits Requested Visits Authorized [id number] Authorized 08/01/2023 01/30/2025 1 1 Encounter Details Date Type Department Care Team (Late st Contact Info) Description 08/01/2023 Orders Only Division of Nephrology and Hypertension in [place], [place] [address] [place] [phone] Jo Root M.D., Ph.D. [address] [place] [phone] Chronic Kidney Disease Stage 5 GFR Less Than 15 Dialysis Dependent (HCC) (Primary Dx) Social History Tobacco Use Types Packs/Day Years Used Date Smoking Tobacco: Never Smokeless Tobacco: Never Alcohol Use Standard Drinks/Week Comments Never 0 (1 standard drink = 0.6 oz pur e alcohol) [facility] Utilities Answer Date Recorded In the past 12 months has [employer], gas, oil, or water [employer] threatened to shut off services in your [...] your living situation today? I have a [facility] place to live 03/13/2023 Sex and Gender Information Value Date Recorded Sex Assigned at Female 03/13/2023 1:38 PM PEDIATRIC PSYCHIATRIST Gender Identity Female 03/13/2023 1:42 PM PEDIATRIC PSYCHIATRIST Sexual Orientation Straight 03/13/2023 1: 42 PM PEDIATRIC PSYCHIATRIST documented as of this encounter Plan of Treatment Upcoming Encounters Date Type Department Care Team (Latest Contact Info) Description 11/27/2023 8:30 AM CDT Appointment Department of Radiology, [facility], in [place], [place] [address] [place] [address] Jo Root M.D., Ph.D. [address] [place] [address] Discharge Disposition: Home or Self Care 11/27/2023 10:30 AM CDT Nurse Only Division of Nephrology and Hypertension in [place], [place] [address] [place] [address] Jo Root M.D., Ph.D. [address] [place] [phone] 11/27/2023 1:00 PM CDT Comprehensive Visit Division of Vascular and Endovascular Surgery in [place], [place] [address] [place] [address] Jo Root M.D., Ph.D. [address] [place] [address] Scheduled Orders Name Type Priority Associated Diagnoses [...] Primary documented in this encounter Care Teams Poker Prop Player Relationship Specialty Start Date End Date None Reported, Pcp PCP - General Family Medicine 03/10/23 documented as of this encounter
--- OUTSIDE RECORDS SUMMARY | 2023-11-07 12:20 | XMS_ITS | Encounter Summary ---
Author Organization [facility] Address [address] [place] [address] Care Team Providers Care Senior Architectural Designer Name Role Phone None Reported, Pcp Primary Care Provider Unavail able Encounter Details Date Type Department Care Team (Late st Contact Info) Description 09/19/2023 Episode Changes Division of Nephrology and Hypertension in [place], [place] [address] [place] [phone] Jo Root M.D., Ph.D. [address] [place] [phone] Social History Tobacco Use Types Packs/Day Years Used Date Smoking Tobacco: Never Smokeless Tobacco: Never Alcohol Use Standard Drinks/Week Comments Never 0 (1 standard drink = 0.6 oz pur e alcohol) [facility] Utilities Answer Date Recorded In the past 12 months has th e [employer], gas, oil, or water [employer] threatened to shut off services in your [...] your living situation today? I have a [facility] place to live 03/13/2023 Sex and Gender Information Value Date Recorded Sex Assigned at Female 03/13/2023 1:38 PM PROGRAMMER OPERATOR NUMERICAL CONTROL Gender Identity Female 03/13/2023 1:42 PM PROGRAMMER OPERATOR NUMERICAL CONTROL Sexual Orientation Straight 03/13/2023 1: 42 PM PROGRAMMER OPERATOR NUMERICAL CONTROL documented as of this encounter Plan of Treatment Upcoming Encounters Date Type Department Care Team (Latest Contact Info) Description 11/27/2023 8:30 AM CDT Appointment Department of Radiology, [facility], in [place], [place] [address] [place] [address] Jo Root M.D., Ph.D. [address] [place] [phone] Discharge Disposition: Home or Self Care 11/27/2023 10:30 AM CDT Nurse Only Division of Nephrology and Hypertension in [place], [place] [address] [place] [phone] Jo Root M.D., Ph.D. [address] [place] [phone] 11/27/2023 1:00 PM CDT Comprehensive Visit Division of Vascular and Endovascular Surgery in [place], [place] [address] [place] [phone] Jo Root M.D., Ph.D. [address] [place] [phone] documented as of this encounter Visit Diagnoses Not on filedocumented in this encounter Care Teams Senior Architectural Designer Relationship Specialty Start Date End Date None Reported, Pcp PCP - General Family Medicine 03/10/23 documented as of this encounter
--- OUTSIDE RECORDS SUMMARY | 2023-11-07 12:20 | XMS_ITS | Clinical Summary ---
Author Organization [facility] Address [place], [place] [address] Care Team Providers Care Manager Business Continuity Name Role Phone Mayuri Corcoran MD Primary Care Provider [phone] Allergies No known active allergies Medications Medication [...] Routine 07/29/2018 8:31 AM CDT Lipid screening LEAF FAT SCRAPER THIN PREP PAP SCREEN IMAGED Routine 07/29/2018 8:05 AM CDT Screening for malignant neoplasm of cervix XR MAMMO BILAT SCREENING Routine 03/07/2016 10:12 AM DIE CAST SUPERVISOR Visit for screening mammogram from Last 3 Months or Most Recently Relevant to Health Maintenance Results * (ABNORMAL) LIPID PANEL W REFLEX MEASURED LDL [[id number]] (07/29/2018 8:31 AM CDT) CHOLESTEROL,TOTAL 172 100 - 199 mg/dL 07/29/2018 1:47 PM CDT [facility] TRIGLYCERIDES 172(H) <150 mg/dL 07/29/2018 1:47 PM CDT [facility] HDL CHOLESTEROL 34(L) >40 mg/dL 9 1:47 PM CDT [facility] NON-HDL CHOLESTEROL 138 <145 mg/dl 07/29/2018 1:47 PM CDT [facility] CHOL/HDL RATIO 5.06(H) <4.50 07/29/2018 1:47 PM CDT [facility] LDL CHOLESTEROL 104 <=130 mg/dL 07/29/2018 1:47 PM CDT [facility] PROVIDER ORDERED STATUS RANDOM 07/29/2018 1:47 PM CDT [facility] Blood BLOOD SPECIMEN / Unknown Butterfly / Unknown 07/29/2018 8:31 AM CDT 07/29/2018 8:31 AM CDT Mayuri Corcoran MD [facility] [address] [place] [address], [place] * LEAF FAT SCRAPER THIN PREP PAP SCREEN IMAGED [[id number]] (07/29/2018 8:05 AM CDT) Case Report Gynecologic Cytology Report ? Case: [id number] ? Authorizing Provider: ??Mayuri Corcoran MD ? Collected: ? 07/29/2018 0805 ? Ordering Location: ? [facility] ?? Received: ?07/29/2018 0831 ? Clinic ? First Screen: ?Jasen Paula ? Pathologist: ? Molina Arias Jr., ? MD ? Specimen: ?LEAF FAT SCRAPER ThinPrep Vial Screening, Cervical ? 08/05/2018 6:40 AM CDT [facility] INTERPRETATION/ RESULT NEGATIVE FOR INTRAEPITHELIAL LESION OR MALIGNANCY (NIL) (none) 08/05/2018 6:40 AM CDT [facility] IMEN ADEQUACY Satisfactory for evaluation Endocervical component present 08/05/2018 6:40 AM CDT [facility] HPV REQUEST HPV and PAP 08/05/2018 6:40 AM CDT [facility] Date of LMP 07/11/2018 08/05/2018 6:40 AM CDT [facility] Last Pap Date 10/02/11 08/05/2018 6:40 AM CDT [facility] [employer](TM) [employer] LAB[facility]AT[facility]-C [facility]AL [facility] Last Pap Result NIL 9 6:40 AM CDT [facility] Abnormal Pap or Howe Bx in last 5 years No 08/05/2018 6:40 AM CDT [facility] [employer](TM) [employer] [facility] Menstrual Status Regular Periods 08/05/2018 6:40 AM CDT [facility] [employer](TM) by [employer] [facility] Howe Bx Done Today No 08/05/2018 6:40 AM CDT [facility] [employer](TM) by [employer] [facility] EN[facility] Additional Information None given 08/05/2018 6:40 AM CDT [facility] Automated Review Successful 08/05/2018 6:40 AM CDT [facility] Comment:Specimen processed s uccessfully by automated microfiche camera operator device, ThinPrep Imaging System, [employer] ANCILLARY TESTING LEAF FAT SCRAPER HPV Ordered, Please see separate report 08/05/2018 6:40 AM CDT [facility] [employer]MD(TM) by [employer] [facility] Note The pap test is [...] lesions. Cytology is screened and interpreted at [facility] Laboratory - [address], [place] [address] and [facility] - [address]; [place] [address] and [facility] - [address]; [place] [address] and [facility] [address]; [place] [address] 08/05/2018 6:40 AM CDT [facility]-C ENTRAL LABORATORY Other (Cervical) Non-Blood / Unknown 07/29/2018 8:05 AM CDT 07/29/2018 8:31 AM CDT Mayuri Corcoran MD PATHOLOGY/CYTOLOGY [facility] [address] [place] [address], [place] * XR MAMMO BILAT SCREENING (03/07/2016 10:12 AM DIE CAST SUPERVISOR) Anatomical Region Laterality Modality BREASTS, Breast Left, Breast Right Bilateral Mammography Impressions 03/07/2016 12:39 PM DIE CAST SUPERVISOR ??There is no radiographic evidence for malignancy. ??Recommend annual mammograms. A lay language report of this examination will be provided to the patient. MAMMOGRAM ASSESSMENT: ??ACR 2 Benign Narrative 03/07/2016 12:39 PM DIE CAST SUPERVISOR XR MAMMO BILAT SCREENING [[id number]] CLINICAL HISTORY: ??This is an asymptomatic 40 [...] Relevant to Health Maintenance Care Teams Manager Business Continuity Relationship Specialty Start Date End Date Mayuri Corcoran MD [address] [place] [address] PCP - General Family Practice 09/15/18
--- OUTSIDE RECORDS SUMMARY | 2023-11-07 12:20 | XMS_ITS ---
Author Organization [facility] Address [address] [place] [address] Care Team Providers Care Certified Professional Midwife Name Role Phone None Reported, Pcp Primary Care Provider Unavail able Kidney Tumbler Dyeing Machine Operator Program Status:Closed (Closed) Start date:03/13/2023 Enrollment date:03/13/2023 Enrollment reason:Referred by provider End date:11/04/2023 Close reason:Transition to In-center Dialysis Continued Care and Services Coordination
--- OUTSIDE RECORDS SUMMARY | 2023-11-07 12:20 | XMS_ITS | Encounter Summary ---
Author Organization [facility] Address [address] [place] [address] Care Team Providers Care Industrial Truck Mechanic Name Role Phone None Reported, Pcp Primary Care Provider Unavail able Encounter Details Date Type Department Care Team (Late st Contact Info) Description 10/08/2023 Documentation Division of Nephrology and Hypertension in [place], [place] [address] [place] [address] Rosanna Serrato, RJanieNJanie [address] [place] [address] Social History Tobacco Use Types Packs/Day Years Used Date Smoking Tobacco: Never Smokeless Tobacco: Never Alcohol Use Standard Drinks/Week Comments Never 0 (1 standard drink = 0.6 oz pur e alcohol) [facility] Utilities Answer Date Recorded In the past 12 months has e electric, gas, oil, or water [employer] threatened to shut off services in your [...] your living situation today? I have a [facility] place to live 03/13/2023 Sex and Gender Information Value Date Recorded Sex Assigned at Female 03/13/2023 1:38 PM MARBLE CHIP TERRAZZO WORKER Gender Identity Female 03/13/2023 1:42 PM MARBLE CHIP TERRAZZO WORKER Sexual Orientation Straight 03/13/2023 1: 42 PM MARBLE CHIP TERRAZZO WORKER documented as of this encounter Progress Notes * Rosanna Serrato RJanis. - 10/08/2023 3:33 PM CDT Patient scheduled for a dialysis tunneled catheter exchange for tomorrow, 10/09/23.Patient is to report at 11:30 to [facility], Main floor, anibal Davison MD. She is to be fasting after midnight, and come witha service parts driver. Patient is diet controlled diabetic. She is not on any anticoagulation. Patient will dialyze at [facility] post catheter replacement. Her normal dialysis days are //. She had some dialysis yesterday. All discussion with the patient via the portrait photographer # [id number]. documented in this encounter Plan of Treatment Upcoming Encounters Date Type Department Care Team (Latest Contact Info) Description 11/27/2023 8:30 AM CDT Appointment Department of Radiology, [facility], in [place], [place] [address] [place] [address] Jo Root M.D., Ph.D. [address] [place] [address] Discharge Disposition: Home or Self Care 11/27/2023 10:30 AM CDT Nurse Only Division of Nephrology and Hypertension in [place], [place] [address] [place] [address] Jo Root M.D., Ph.D. [address] [place] [phone] 11/27/2023 1:00 PM CDT Comprehensive Visit Division of Vascular and Endovascular Surgery in [place], [place] [address] [place] [address] Jo Root M.D., Ph.D. [address] [place] [phone] documented as of this encounter Visit Diagnoses Not on filedocumented in this encounter Care Teams Industrial Truck Mechanic Relationship Specialty Start Date End Date None Reported, Pcp PCP - General Family Medicine 03/10/23 documented as of this encounter
--- OUTSIDE RECORDS SUMMARY | 2023-11-07 12:20 | XMS_ITS | Encounter Summary ---
Author Organization [facility] Address [address] [place] [address] Care Team Providers Care Courtesy Booth Cashier Name Role Phone None Reported, Pcp Primary Care Provider Unavail able Encounter Details Date Type Department Care Team (Late st Contact Info) Description 08/06/2023 Orders Only Division of Nephrology and Hypertension, [facility], in [place], [place] [address] [place] [phone] Nicholas Tracey, PAINT MIXER HAND, C.N.P., M.S.N. [address] [place] [phone] Trigger Finger Middle Right (Primary Dx) Social History Tobacco Use Types Packs/Day Years Used Date Smoking Tobacco: Never Smokeless Tobacco: Never Alcohol Use Standard Drinks/Week Comments Never 0 (1 standard drink = 0.6 oz pur e alcohol) [facility] Utilities Answer Date Recorded In the past 12 months has [facility] [employer], gas, oil, or water [employer] threatened to shut off services in [...] your living situation today? I have a [facility] place to live 03/13/2023 Sex and Gender Information Value Date Recorded Sex Assigned at Female 03/13/2023 1:38 PM GARAGE MECHANIC Gender Identity Female 03/13/2023 1:42 PM GARAGE MECHANIC Sexual Orientation Straight 03/13/2023 1: 42 PM GARAGE MECHANIC documented as of this encounter Plan of Treatment Upcoming Encounters Date Type Department Care Team (Latest Contact Info) Description 11/27/2023 8:30 AM CDT Appointment Department of Radiology, [facility], in [place], [place] [address] [place] [address] Jo Root M.D., Ph.D. [address] [place] [phone] Discharge Disposition: Home or Self Care 11/27/2023 10:30 AM CDT Nurse Only Division of Nephrology and Hypertension in [place], [place] [address] [place] [address] Jo Root M.D., Ph.D. [address] [place] [phone] 11/27/2023 1:00 PM CDT Comprehensive Visit Division of Vascular and Endovascular Surgery in [place], [place] [address] [place] [address] Jo Root M.D., Ph.D. [address] [place] [phone] documented as of this encounter Visit Diagnoses Diagnosis Trigger Finger Middle Right- Primary documented in this encounter Care Teams Courtesy Booth Cashier Relationship Specialty Start Date End Date None Reported, Pcp PCP - General Family Medicine 03/10/23 documented as of this encounter
--- OUTSIDE RECORDS SUMMARY | 2023-11-07 12:20 | XMS_ITS | Encounter Summary ---
Author Organization [facility] Address [address] [place] [address] Care Team Providers Care Electrical Instrument Technician Name Role Phone None Reported, Pcp Primary Care Provider Unavail able Encounter Details Date Type Department Care Team (Late st Contact Info) Description 08/04/2023 Orders Only Division of Nephrology and Hypertension, [facility], in [place], [place] [address] [place] [phone] Nicholas Tracey, CERTIFIED OPHTHALMIC SURGICAL ASSISTANT, C.N.P., M.S.N. [address] [place] [phone] Social History Tobacco Use Types Packs/Day Years Used Date Smoking Tobacco: Never Smokeless Tobacco: Never Alcohol Use Standard Drinks/Week Comments Never 0 (1 standard drink = 0.6 oz pur e alcohol) [facility] Utilities Answer Date Recorded In the past 12 months has th e electric, gas, oil, or water [employer] threatened to shut off services in your [...] Sex Assigned at Female 03/13/2023 1:38 PM ASSISTANT TRACK COACH Gender Identity Female 03/13/2023 1:42 PM ASSISTANT TRACK COACH Sexual Orientation Straight 03/13/2023 1: 42 PM ASSISTANT TRACK COACH documented as of this encounter Plan of Treatment Upcoming Encounters Date Type Department Care Team (Latest Contact Info) Description 11/27/2023 8:30 AM CDT Appointment Department of Radiology, [facility], in [place], [place] [address] [place] [address] Jo Root M.D., Ph.D. [address] [place] [phone] Discharge Disposition: Home or Self Care 11/27/2023 10:30 AM CDT Nurse Only Division of Nephrology and Hypertension in [place], [place] [address] [place] [address] Jo Root M.D., Ph.D. [address] [place] [phone] 11/27/2023 1:00 PM CDT Comprehensive Visit Division of Vascular and Endovascular Surgery in [place], [place] [address] [place] [address] Jo Root M.D., Ph.D. [address] [place] [phone] documented as of this encounter Visit Diagnoses Not on filedocumented in this encounter Care Teams Electrical Instrument Technician Relationship Specialty Start Date End Date None Reported, Pcp PCP - General Family Medicine 03/10/23 documented as of this encounter
--- OUTSIDE RECORDS SUMMARY | 2023-11-07 12:20 | XMS_ITS | Encounter Summary ---
Author Organization [facility] Address [address] [place] [address] Care Team Providers Care Vp Talent Management Name Role Phone None Reported, Pcp Primary Care Provider Unavail able Reason for Referral * Outpatient (Routine) - Closed Specialty Diagnoses / Procedures Referred By Crow olivo Referred To Contact Radiology Diagnoses Hemodialysis Status (HCC) Procedures IR Dialysis / High Flow Catheter Exchange Yin Garcia APRN, C.N.P., D.N.P. [address] [place] [phone] [facility] Referral ID Status Reason Start Date Expiration Date Visits Re quested Visits Authorized [id number] Closed 10/08/2023 10/07/2024 1 1 Reason for Visit * Outpatient (Routine) - Closed Specialty Diagnoses / Procedures Referred By Crow olivo Referred To Contact Radiology Diagnoses Hemodialysis Status (HCC) Procedures IR Dialysis / High Flow Catheter Exchange Yin Garcia APRN, C.N.P., D.N.P. [address] [place] [phone] [facility] Referral ID Status Reason Start Date Expiration Date Visits Re quested Visits Authorized [id number] Closed 10/08/2023 10/07/2024 1 1 Encounter Details Date Type Department Care Team (Latest Contact Info) Description 10/09/2023 12:17 PM CDT - 10/09/2023 3:11 PM CDT Hospital Encounter Department of Radiology in [place], [place] [address] [place] [phone] Yin Garcia APRN, C.N.P., D.N.P. [address] [place] [phone] Emigdio Colon M.D. [address] [place] [phone] Hemodialysis Status (HCC) Discharge Disposition: Home or Self Care Social History Tobacco Use Types Packs/Day Years Used Date Smoking Tobacco: Never Smokeless Tobacco: Never Alcohol Use Standard Drinks/Week Comments Never 0 (1 standard drink = 0.6 oz pur e alcohol) [facility] Utilities Answer Date Recorded In the past 12 months has e [employer], gas, oil, or water [employer] threatened to shut off services in your [...] living situation today? I have a [facility] place to live 03/13/2023 Sex and Gender Information Value Date Recorded Sex Assigned at Female 03/13/2023 1:38 PM [employer] Gender Identity Female 03/13/2023 1:42 PM [employer] Sexual Orientation Straight 03/13/2023 1: 42 PM [employer] documented as of this encounter Last Filed [...] Mass Index 44.76 03/13/2023 11:03 AM [employer] documented in this encounter Discharge Instructions * Attachments The following attachments cannot be sent through Care Everywhere. * Your High-Flow Central Venous Catheter ([place]) documented in this encounter Medications at Time [...] 8:30 AM CDT Appointment Department of Radiology, [facility], in [place], [place] [address] [place] [phone] Jo Root M.D., Ph.D. [address] [place] [phone] Discharge Disposition: Home or Self Care 11/27/2023 10:30 AM CDT Nurse Only Division of Nephrology and Hypertension in [place], [place] [address] [place] [phone] Jo Root M.D., Ph.D. [address] [place] [address] 11/27/2023 1:00 PM CDT Comprehensive Visit Division of Vascular and Endovascular Surgery in [place], [place] [address] [place] [address] Jo Root M.D., Ph.D. [address] [place] [address] documented as of this encounter Procedures Procedure [...] catheter were prepped and draped sterilely. A dope heater view showed the tip of the catheter [...] obtained from the patient via in person air route controller.. Immediately prior to starting the procedure, in [...] dialysis catheter were prepped anddraped sterilely. A dope heater view showed the tip of the catheter [...] consent obtained from thepatient via in person air route controller.. Immediately prior tostarting the procedure, in the [...] M.D.) documented in this encounter Care Teams Vp Talent Management Relationship Specialty Start Date End Date None Reported, Pcp PCP - General Family Medicine 03/10/23 documented as of this encounter
--- OUTSIDE RECORDS SUMMARY | 2023-11-07 12:20 | XMS_ITS | Encounter Summary ---
Author Organization [facility] Address [address] [place] [address] Care Team Providers Care Principal Associate Name Role Phone None Reported, Pcp Primary Care Provider Unavail able Encounter Details Date Type Department Care Team (Late st Contact Info) Description 08/04/2023 Clinical Communication Division of Nephrology and Hypertension in [place], [place] [address] [place] [phone] Jo Root M.D., Ph.D. [address] [place] [phone] Social History Tobacco Use Types Packs/Day Years Used Date Smoking Tobacco: Never Smokeless Tobacco: Never Alcohol Use Standard Drinks/Week Comments Never 0 (1 standard drink = 0.6 oz pur e alcohol) [facility] Utilities Answer Date Recorded In the past 12 months has th e [employer], gas, oil, or water [employer] threatened to shut off services in your [...] Sex Assigned at Female 03/13/2023 1:38 PM DRAGGER OUT Gender Identity Female 03/13/2023 1:42 PM DRAGGER OUT Sexual Orientation Straight 03/13/2023 1: 42 PM DRAGGER OUT documented as of this encounter Miscellaneous Notes * Telephone Encounter - Jo Root M.D., Ph.D. - 08/04/2023 10:40 AM CDT Patient has been evaluated during dialysis at [facility]. She presents a pruritic rash, she [...] 8:30 AM CDT Appointment Department of Radiology, [facility], in [place], [place] [address] [place] [address] Jo Root M.D., Ph.D. [address] [place] [address] Discharge Disposition: Home or Self Care 11/27/2023 10:30 AM CDT Nurse Only Division of Nephrology and Hypertension in [place], [place] [address] [place] [address] Jo Root M.D., Ph.D. [address] [place] [address] 11/27/2023 1:00 PM CDT Comprehensive Visit Division of Vascular and Endovascular Surgery in [place], [place] [address] [place] [address] Jo Root M.D., Ph.D. [address] [place] [phone] documented as of this encounter Visit Diagnoses Not on filedocumented in this encounter Care Teams Principal Associate Relationship Specialty Start Date End Date None Reported, Pcp PCP - General Family Medicine 03/10/23 documented as of this encounter
--- OUTSIDE RECORDS SUMMARY | 2023-11-07 12:20 | XMS_ITS ---
Author Organization [facility] Address [address] [place] [address] Care Team Providers Care Dialysis Tech Name Role Phone None Reported, Pcp Primary Care Provider Unavail able Transplant Episode Kidney Candidate [facility] ([place], [place]) - [facility] Referred on 09/10/2023 Marked as Active on 09/10/2023 Kidney CoordinatorVandana Lauren R.N., C.C.T.C. Phone: N/A Fax: N/A Email: N/A Scores Score Value Updated Exceptions/Reas ons CPRA Not available EPTS (Calc) 14 11/07/2023 Care Team Name Role Phone Fax Email Vandana Lauren R.N., C.C.T.C. Kidney Coordinator N/A N/A N/A Jo Berg M.D., Ph.D. Referring Provider [phone] [email or web address] [email or web address] Pre-Transplant Referred: 09/10/2023 Dialysis History Dialysis History Start End Type [facility] Information Center Phone Fax Address [facility] [phone] [place] [address]
--- OUTSIDE RECORDS SUMMARY | 2023-11-07 12:20 | XMS_ITS | Encounter Summary ---
Author Organization [facility] Address [address] [place] [address] Care Team Providers Care Health And Fitness Professor Name Role Phone None Reported, Pcp Primary Care Provider Unavail able Reason for Referral * Specialty Diagnoses / Procedures Referred By Crow olivo Referred To Contact Yin Garcia APRN, C.N.PJanie, D.N.P. [address] [place] [phone] [facility] Referral ID Status Reason Start Date Expiration Date Visits Re quested Visits Authorized * Outpatient (Routine) - Closed Specialty Diagnoses / Procedures Referred By Crow olivo Referred To Contact Radiology Diagnoses Hemodialysis Status (HCC) Procedures IR Dialysis / High Flow Catheter Exchange Yin aGrcia APRN, C.N.P., D.N.P. [address] [place] [phone] [facility] Referral ID Status Reason Start Date Expiration Date Visits Re quested Visits Authorized [id number] Closed 10/08/2023 10/07/2024 1 1 Encounter Details Date Type Department Care Team (Late st Contact Info) Description 10/08/2023 Orders Only Division of Nephrology and Hypertension in [place], [place] [address] [place] [phone] Yin Garcia APRN, C.N.P., D.N.P. [address] [place] [address] Hemodialysis Status (HCC) (Primary Dx) Social History Tobacco Use Types Packs/Day Years Used Date Smoking Tobacco: Never Smokeless Tobacco: Never Alcohol Use Standard Drinks/Week Comments Never 0 (1 standard drink = 0.6 oz pur e alcohol) [facility] Utilities Answer Date Recorded In the past 12 months has e [employer], gas, oil, or water [employer] threatened to shut off services in your [...] your living situation today? I have a [facility] place to live 03/13/2023 Sex and Gender Information Value Date Recorded Sex Assigned at Female 03/13/2023 1:38 PM MARINE DRAFTER Gender Identity Female 03/13/2023 1:42 PM MARINE DRAFTER Sexual Orientation Straight 03/13/2023 1: 42 PM MARINE DRAFTER documented as of this encounter Plan of Treatment Upcoming Encounters Date Type Department Care Team (Latest Contact Info) Description 11/27/2023 8:30 AM CDT Appointment Department of Radiology, [facility], in [place], [place] [address] [place] [address] Jo Root M.D., Ph.D. [address] [place] [phone] Discharge Disposition: Home or Self Care 11/27/2023 10:30 AM CDT Nurse Only Division of Nephrology and Hypertension in [place], [place] [address] [place] [phone] Jo Root M.D., Ph.D. [address] [place] [phone] 11/27/2023 1:00 PM CDT Comprehensive Visit Division of Vascular and Endovascular Surgery in [place], [place] [address] [place] [phone] Jo Root M.D., Ph.D. [address] [place] [phone] Scheduled Referrals Name Type Priority Associated Diagnoses [...] catheter were prepped and draped sterilely. A recruitment consultant view showed the tip of the catheter [...] obtained from the patient via in person reel man.. Immediately prior to starting the procedure, in [...] dialysis catheter were prepped anddraped sterilely. A recruitment consultant view showed the tip of the catheter [...] consent obtained from thepatient via in person reel man.. Immediately prior tostarting the procedure, in the [...] (HCC) documented in this encounter Care Teams Health And Fitness Professor Relationship Specialty Start Date End Date None Reported, Pcp PCP - General Family Medicine 03/10/23 documented as of this encounter
--- OUTSIDE RECORDS SUMMARY | 2023-11-07 12:20 | XMS_ITS | Data Portability ---
Author Organization [facility] - [facility]ST[facility] OFFICE Address [address] [place] [address] [place] [address] Assessment Encounter Date Assessment Date Assessment LastModified by Organization Details LastModified Time 03/04/2023 03/04/2023 - recheck BMP this week - Nephrology referral in place - given poor BP control/edema , add Metoprolol 50mg HS, decrease Amlodipine from BID to 10mg Qd Not available 03/04/2023 10:50:00 Plan of Treatment Reminders Order Date Submit Date Provider Last Modified By Organization Details Last Modified Time Details Appointments None recorded. Lab CBC 2022 023 JAIME Not available 3 14:34:02 CMP, serum or plasma 2022 023 JAIME Not available 3 11:22:36 HbA1c (hemoglobin A1c), blood 2022 023 JAIME Not available 3 14:34:01 lipid panel, serum 2022 023 JAIME Not available 3 14:34:01 urinalysis, complete 2022 023 JAIME Not available 3 14:34:02 hepatitis panel (A+B+C), acute, serum 2022 023 JAIME Not available 3 03:32:44 urinalysis, dipstick 2022 023 [email or web address] [facility], [address] [place], [address], 3 16:18:19 BMP, blood 2022 023 [facility], [address] [place], [address], 3 03:14:29 HbA1c (hemoglobin A1c), blood 2022 023 [facility], [address] [place], [address], 3 03:14:29 BMP, serum or plasma 2023 024 [facility], [address] [place], [address], 4 22:15:41 Referral community health worker referral - NEEDS BP Cuff for BP monitoring BRANDO 2022 023 Not available 3 19:43:26 Procedures None recorded. Surgeries None recorded. Imaging CT, abdomen + pelvis, w/o contrast - has had cholecystec hector, attention to right upper quadrant 2022 023 [email or web address] [facility] Radiology Department, [address] [place], [address], 3 10:24:04 Medication Orders tramadol 50 mg tablet 2022 023 [facility], [address] [place], [address], 3 20:36:01 amlodipine 10 mg tablet 2022 023 [facility], [address] [place], [address], 3 16:04:20 losartan 50 mg tablet 2022 023 [email or web address] 5 [facility], [address] [place], [address], 4 10:23:10 metoprolol succinate ER 50 mg tablet,exte nded release 24 hr 2023 024 [facility], [address] [place] [address], [address], 11:15:24 Patient Targets Encounter Date Encounter Id Patient Goals Patient Target Last Modified By Organization Details Last Modified Time - check BP at home thrice weekly - has been referred to [facility] - likely f/u with [facility] given new insurance Not available 03/04/2023 10:48:58 Patient Instructions Encounter Date Encounter Id Patient Instructions Last Modified By Organization Details Last Modified Time 04/30/2022 [id number] try half tab of tramadol for discomfort, watch for drowsiness, avoid Tylenol and Advil kristian Not available 05/01/2022 12:15:46 05/30/2022 [id number] keep losing weight, avoid salt kristian Not available 06/03/2022 13:46:01 gradually incr meds for hypertension kristian Not available 05/31/2022 16:24:54 Reason for Referral 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 Refe rral for Essential hypertension [facility], Encounter Date: 02/22/2022 [employer] Referral for Ch ronic kidney disease stage 4 Urgent nephrology referral needed Referring Physician: [facility], Encounter Date: 01/10/2023 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 Refe rral for Essential hypertension NEEDS BP Cuff for BP monitoring BRANDO Referring Physician: [facility]a [facility], Encounter Date: 01/27/2023 Results Created Date Observation Date Name Description Value Unit Range Abnormal Flag Note LastModifiedBy Organization Detail LastModifiedTime 05/09/1905/08/2022 CMP, serum or plasm a creatinine 2.0 high Not Available Not Veena ilable 05/08/2022 11:14:06 05/09/19 23 05/08/2022 CMP, serum or plasm a ALT 29 Not Available Not Availa ble 05/08/2022 11:14:06 05/09/19 23 05/08/2022 CMP, serum or plasm a total cholesterol 228 high Not Available Not Available 05/08/2022 11:14:06 05/09/19 23 05/08/2022 CMP, serum or plasm a triglyceride s 254 high Not Available Not Available 04/18 11:14:06 05/09/19 23 05/08/2022 CMP, serum or plasm a HDL 46 low Not Available Not Availa ble 05/08/2022 11:14:06 05/09/19 23 05/08/2022 CMP, serum or plasm a LDL 131 high Not Available Not Availa ble 05/08/2022 11:14:06 05/09/19 23 05/08/2022 CMP, serum or plasm a hemoglobin A1C 5.44 Not Available Not Available 04/18 11:14:06 05/09/19 23 05/08/2022 CMP, serum or plasm a WBC 7.45 Not Available Not Availa ble 05/08/2022 11:14:06 05/09/19 23 05/08/2022 CMP, serum or plasm a HGB 12.4 Not Available Not Availa ble 05/08/2022 11:14:06 05/09/19 23 05/08/2022 CMP, serum or plasm a plt 192 Not Available Not Availa ble 05/08/2022 11:14:06 05/09/19 23 05/08/2022 urina lysis , compl ete creatinine 2.0 high Not Available Not Veena ilable 05/08/2022 14:34:02 05/09/19 23 05/08/2022 urina lysis , compl ete ALT 29 Not Available Not Availa ble 05/08/2022 14:34:02 05/09/19 23 05/08/2022 urina lysis , compl ete total cholesterol 228 high Not Available Not Available 05/08/2022 14:34:02 05/09/19 23 05/08/2022 urina lysis , compl ete triglyceride s 254 high Not Available Not Available 04/18 14:34:02 05/09/19 23 05/08/2022 urina lysis , compl ete HDL 46 low Not Available Not Availa ble 05/08/2022 14:34:02 05/09/19 23 05/08/2022 urina lysis , compl ete LDL 131 high Not Available Not Availa ble 05/08/2022 14:34:02 05/09/19 23 05/08/2022 urina lysis , compl ete hemoglobin A1C 5.44 Not Available Not Available 04/18 14:34:02 05/09/19 23 05/08/2022 urina lysis , compl ete WBC 7.45 Not Available Not Availa ble 05/08/2022 14:34:02 05/09/19 23 05/08/2022 urina lysis , compl ete HGB 12.4 Not Available Not Availa ble 05/08/2022 14:34:02 05/09/19 23 05/08/2022 urina lysis , compl ete plt 192 Not Available Not Availa ble 05/08/2022 14:34:02 05/09/19 23 05/08/2022 CBC creatinine 2.0 high Not Available No t Available 05/08/2022 14:34:01 05/09/19 23 05/08/2022 CBC ALT 29 Not Available Not Veena ilable 05/08/2022 14:34:01 05/09/19 23 05/08/2022 CBC total cholesterol 228 high Not Available Not Available 05/08/2022 14:34:01 05/09/19 23 05/08/2022 CBC triglyceride s 254 high Not Available Not Available 04/18 14:34:01 05/09/19 23 05/08/2022 CBC HDL 46 low Not Available Not Veena ilable 05/08/2022 14:34:01 05/09/19 23 05/08/2022 CBC LDL 131 high Not Available Not Veena ilable 05/08/2022 14:34:01 05/09/19 23 05/08/2022 CBC hemoglobin A1C 5.44 Not Available Not Available 04/18 14:34:01 05/09/19 23 05/08/2022 CBC WBC 7.45 Not Available Not Veena ilable 05/08/2022 14:34:01 05/09/19 23 05/08/2022 CBC HGB 12.4 Not Available Not Veena ilable 05/08/2022 14:34:01 05/09/19 23 05/08/2022 CBC plt 192 Not Available Not Veena ilable 05/08/2022 14:34:01 05/09/19 23 05/08/2022 HbA1c (hemo globi n A1c), blood creatinine 2.0 high Not Available Not Veena ilable 05/08/2022 14:34:01 05/09/19 23 05/08/2022 HbA1c (hemo globi n A1c), blood ALT 29 Not Available Not Availa ble 05/08/2022 14:34:01 05/09/19 23 05/08/2022 HbA1c (hemo globi n A1c), blood total cholesterol 228 high Not Available Not Available 05/08/2022 14:34:01 05/09/19 23 05/08/2022 HbA1c (hemo globi n A1c), blood triglyceride s 254 high Not Available Not Available 04/18 14:34:01 05/09/19 23 05/08/2022 HbA1c (hemo globi n A1c), blood HDL 46 low Not Available Not Availa ble 05/08/2022 14:34:01 05/09/19 23 05/08/2022 HbA1c (hemo globi n A1c), blood LDL 131 high Not Available Not Availa ble 05/08/2022 14:34:01 05/09/19 23 05/08/2022 HbA1c (hemo globi n A1c), blood hemoglobin A1C 5.44 Not Available Not Available 04/18 14:34:01 05/09/19 23 05/08/2022 HbA1c (hemo globi n A1c), blood WBC 7.45 Not Available Not Availa ble 05/08/2022 14:34:01 05/09/19 23 05/08/2022 HbA1c (hemo globi n A1c), blood HGB 12.4 Not Available Not Availa ble 05/08/2022 14:34:01 05/09/19 23 05/08/2022 HbA1c (hemo globi n A1c), blood plt 192 Not Available Not Availa ble 05/08/2022 14:34:01 05/09/19 23 05/08/2022 lipid panel , serum creatinine 2.0 high Not Available Not Veena ilable 05/08/2022 14:34:01 05/09/19 23 05/08/2022 lipid panel , serum ALT 29 Not Available Not Availa ble 05/08/2022 14:34:01 05/09/19 23 05/08/2022 lipid panel , serum total cholesterol 228 high Not Available Not Available 05/08/2022 14:34:01 05/09/19 23 05/08/2022 lipid panel , serum triglyceride s 254 high Not Available Not Available 04/18 14:34:01 05/09/19 23 05/08/2022 lipid panel , serum HDL 46 low Not Available Not Availa ble 05/08/2022 14:34:01 05/09/19 23 05/08/2022 lipid panel , serum LDL 131 high Not Available Not Availa ble 05/08/2022 14:34:01 05/09/19 23 05/08/2022 lipid panel , serum hemoglobin A1C 5.44 Not Available Not Available 04/18 14:34:01 05/09/19 23 05/08/2022 lipid panel , serum WBC 7.45 Not Available Not Availa ble 05/08/2022 14:34:01 05/09/19 23 05/08/2022 lipid panel , serum HGB 12.4 Not Available Not Availa ble 05/08/2022 14:34:01 05/09/19 23 05/08/2022 lipid panel , serum plt 192 Not Available Not Availa ble 05/08/2022 14:34:01 12/31/19 23 12/30/2022 urina lysis , dipst ick Leukocytes neg Not Available [facility] Office [address] [place] [address], [address], 12/30/2022 16:03:54 12/31/19 23 12/30/2022 urina lysis , dipst ick Nitrite negati ve Not Available [address], [address], 12/30/2022 16:03:54 12/31/19 23 12/30/2022 urina lysis , dipst ick Urobilinogen 0.2 Not Available [facility] Office [address] [place] [address], [address], 12/30/2022 16:03:54 12/31/19 23 12/30/2022 urina lysis , dipst ick Protein ++++ Not Available [address], [address], 12/30/2022 16:03:54 12/31/19 23 12/30/2022 urina lysis , dipst ick pH 5 Not Available [address], [address], 12/30/2022 16:03:54 12/31/19 23 12/30/2022 urina lysis , dipst ick Blood small Not Available [address], [address], 12/30/2022 16:03:54 12/31/19 23 12/30/2022 urina lysis , dipst ick Specific [place] 1.025 Not Available [facility] [address], [address], 12/30/2022 16:03:54 12/31/19 23 12/30/2022 urina lysis , dipst ick Ketone Neg Not Available [address], [address], 12/30/2022 16:03:54 12/31/19 23 12/30/2022 urina lysis , dipst ick Bilirubin Neg Not Available [facility] Office [address] [place] [address], [address], 12/30/2022 16:03:54 12/31/19 23 12/30/2022 urina lysis , dipst ick Glucose Neg Not Available [address], [address], 12/30/2022 16:03:54 12/31/19 23 12/30/2022 urina lysis , dipst ick Appearance Clear Not Available [facility] el[facility] Office [address] [place] [address], [address], 12/30/2022 16:03:54 12/31/19 23 12/30/2022 urina lysis , dipst ick Color Yellow Not Available [facility] [address] [place], [address], 12/30/2022 16:03:54 02/13/20 23 02/12/2023 BMP, serum or plasm a creatinine 3.6 Not Available [facility] [address] [place], [address], 02/18/2023 10:40:42 05/09/19 23 05/08/2022 CT, abdom en + pelvi s, w/ contr ast No observ ation record ed. [facility] Radiology Department [address] [place], [address], 05/08/2022 15:15:50 01/21/20 23 01/20/2023 US, navid y No observ ation record ed. [facility] Radiology [address] [place], [address], 01/26/2023 18:24:40 Result Notes None recorded. Problems Name Problem SNOMED Code Status Onset Date Resolution Date Notes Provider Name and Address Organization Details Recorded Time Essential hypertens ion 07895989 Active 2022 Carrington Miramontes MD [address] [place], [address], [facility] [employer] 3 19:28:35 Upper abdominal pain 38440180 Active 2022 Carrington Miramontes MD [address] [place], [address], [facility] [employer] 3 19:29:00 Body mass index 30+ - obesity 663183781 Active 2022 Carrington Miramontes MD [address] [place], [address], [facility] [employer] 3 16:06:36 Steatosis of liver 767473540 Active 2022 Carrington Miramontes MD [address] [place], [address], [facility] 3 16:07:35 Hyperlipi demia 94272763 Active 2022 Carrington Miramontes MD [address] [place], [address], [facility] 3 09:47:22 Calculus in renal pelvis 431848761 Active 2022 Carrington Miramontes MD [address] [place], [address], [facility] 3 13:48:08 Diverticu losis of colon 055913838 Active 2022 Carrington Miramontes MD [address] [place], [address], [facility] 3 13:48:33 Normocyti c anemia 240641319 Active 2022 noted during hospitaliz ation 02/08. Hgb 9.1 on 02/12 Wendy Bacon MD [address] [place], [address], [facility] 4 10:48:14 Problem Notes None recorded. Procedures Surgical History None recorded. Imaging Results Imaging Date Name Status LastModified by Organiz ation Details LastModified Time 05/08/2022 CT, abdomen + pelvis, w/ contrast completed [facility] Radiology Department [address] [place], [address], 05/08/2022 15:15:50 01/20/2023 US, kidney completed [facility]iology [address] [place], [address], 01/26/2023 18:24:40 Procedure Notes None recorded. Medical Equipment None Reported. Allergies No known drug allergies Medications Name Sig Start Date Stop Date Status Note LastModified by Organization Details LastModified Time losartan 50 mg tablet TAKE 1 TABLET BY MOUTH EVERY DAY FOR 30 DAYS. 03/04 completed Not Available Not Available Not Available torsemide 20 mg tablet TAKE 1 TABLET (20 MG) BY MOUTH DAILY. active Not Available Not Available No t Available loperamide 2 mg capsule 05/30 completed Not Available Not Available Not Available metoprolol succinate ER 50 mg tablet,exten ded release 24 hr TAKE 1 TABLET BY MOUTH EVERY DAY AT BEDTIME FOR 30 DAYS. active Not Available Not Available No t Available hydrochlorot hiazide 50 mg tablet TAKE 1 TABLET BY MOUTH EVERY DAY 12/30 completed Not Available Not Available Not Available amlodipine 5 mg tablet TAKE ONE TABLET BY MOUTH EVERY DAY 03/04 completed Not Available Not Available Not Available tramadol 50 mg tablet Take 1 tablet every 6 hours by oral route as needed. 05/30 completed Not Available Not Available Not Available sodium bicarbonate 650 mg tablet TAKE 1 TABLET (650 MG) BY MOUTH DAILY. active Not Available Not Available No t Available amlodipine 10 mg tablet TAKE ONE TABLET BY MOUTH EVERY DAY active Not Available Not Available No t Available calcium acetate(phos phate binders) 667 mg capsule TAKE 1 CAPSULE (667 MG) BY MOUTH DAILY. active Not Available Not Available No t Available Vitals Date Recorded Body height Body mass index (BMI) Body weight Systolic blood pressure Diastolic blood pressure Provider Name and Address Organization Details Last Updated DateTime 04/30/2022 154.94 cm 45.7 kg/m2 042569.3 5 g 184 mm[Hg] 100 mm[Hg] Carrington Miramontes MD [address] [place], [address] [employer] 3 19:28:06 Date Recorded Body weight Heart rate Oxygen saturation Oxygen saturation in Arterial blood by Pulse oximetry Systolic blood pressure Diastolic blood pressure Provider Name and Address Organization Details Last Updated DateTime 3 713266. 58 g 90 /min 97 % 97 % 162 mm[Hg] 92 mm[Hg] DANII Abrams [address] [place], [address] [employer] 3 15:59:37 Date Recorded Body height Body mass index (BMI) Body weight Oxygen saturation Oxygen saturation in Arterial blood by Pulse oximetry Heart rate Systolic blood pressure Diastolic blood pressure Systolic blood pressure Provider Name and Address Organization Details Last Updated DateTime 3 154.94 cm 43.2 kg/m2 787503. 22 g 98 % 98 % 91 /min 186 mm[Hg] 98 mm[Hg] 180 mm[Hg] DANII Abrams [address] [place], [address], [facility] [email or web address] [facility] 3 13:50:01 Date Recorded Body height Body mass index (BMI) Body weight Respiratory rate Heart rate Body temperature Oxygen saturation Oxygen saturation in Arterial blood by Pulse oximetry Systolic blood pressure Diastolic blood pressure Provider Name and Address Organization Details Last Updated DateTime 4 154.94 cm 45.6 kg/m2 832512. 2 g 22 /min 110 /min 97.4 [degF] 99 % 99 % 186 mm[Hg] 99 mm[Hg] Pati Curran [facility] [email or web address] [facility] 4 10:13:51 Social History Question Answer Notes LastModified by Organizat ion Details LastModified Time Tobacco Smoking Status Never Smoker Carrington Miarmontes MD [address] [place], [address], [facility] [email or web address] [facility] 04/30/2022 19:31:38 What Is Your Level Of Alcohol Consumption? None Information not available 04/30/2022 Are You Currently Employed? Yes [employer] Information not available 04/30/2022 Who Is Your Employer? [employer] Information not available 03/04/2023 Have There Been Any Changes To Your Family Or Social Situation? No Information not available 04/30/2022 Do You Feel Safe At Home? Yes Information not available 04/30/2022 What Is Your Relationship Status? Two Children At Home Information not available 04/30/2022 Do You Feel Stressed (tense, Restless, Nervous, Or Anxious, Or Unable To Sleep At Night)? [id number] Information not available 04/30/2022 Sex: Unknown Functional Status None recorded. Mental Status None recorded. Family History Nothing Reported Notes:both parents had diabe yaritza, mother poss of complications, father of a brain tumor? seven siblings, several with diabetes and hypertension Medical History No medical history recorded. Gynecological HistoryNo gynecological history recorded. Obstetrics History GPAL:G 4 P 4 0 0 4 Type Value Full Term 4 Living 4 Total 4 Immunizations Vaccine Type Date Status Provider Name and Address Organization Details Recorded Time COVID-19, mRNA, LNP-S, PF, 30 mcg/0.3 mL dose, grisel-sucrose 03/07/2021 completed MARK BRIDGES [address] [place], [address], [facility] 03/07/2021 16:15:55 Past Encounters Encounter ID Performer Location Encounter Start Date Encounter Closed Date Diagnosis/Indication Diagnosis SNOMED-CT Code Diagnosis ICD10 Code [id number] MARK BRIDGES [facility] [address] [place] [address] 03/07/2021 16:05:16 03/07/2021 19:03:45 Administration of SARS-CoV-2 mRNA vaccine 1665822532 Z23 [id number] LUIS MIGUEL LOYD MD [facility] [address] [place] [address] 02/22/2022 12:02:42 02/22/2022 12:53:09 Essential hypertension 58394258 I10 [id number] MD KERRY ShelbyMISSY [facility] [address] [place] [address] 04/30/2022 18:56:10 05/01/2022 12:30:20 Abdominal pain 88583327 R10.9 Essential hypertension 09757222 I10 [id number] Carrington Miramontes MD [place] [address] [place] [address] 05/30/2022 10:48:12 05/30/2022 11:12:18 Essential hypertension 51399307 I10 Steatosis of liver 1007 K76.0 Body mass index 30+ - obesity 479817153 Z68.42 Hyperlipidemia 78365541 E78.5 [id number] DANII Abrams [facility] [address] [place] [address] 12/30/2022 15:26:38 12/30/2022 16:18:55 Essential hypertension 66862013 I10 Nocturia 374647435 R35.1 Diabetes m ellitus screening 082900186 Z13.1 [id number] DANII Abrams [facility] [address] [place] [address] 01/27/2023 10:45:36 01/27/2023 11:20:04 Essential hypertension 49885206 I10 Chronic ki dney disease stage 4 333885366 N18.4 [id number] Wendy Bacon MD [facility] [address] [place] [address] 03/04/2023 10:09:34 03/04/2023 10:41:29 Chronic kidney disease stage 4 094992905 N18.4 Essential hypertension 95988719 I10 Normocytic anemia 139382 002 D64.9 Health Concerns Section Related Observation LastModified by Organization Detai ls LastModified Time None Recorded Concern Status LastModified by Organization Details LastModified Time None Recorded Advance Directives Directive None Recorded Payers Encounter Date Sequence Insurance Name Policy Number Policy Espitia Covered Member ID Espitia Member ID Guarantor Name 04/30/2022 SLIDING FEE SCHEDULE - DISCOUNT Leny Ramirez 05/30/2022 SLIDING FEE SCHEDULE - DISCOUNT Leny Ramirez 12/30/2022 SLIDING FEE SCHEDULE - DISCOUNT Leny Ramirez 03/04/2023 SLIDING FEE SCHEDULE - DISCOUNT Leny Ramirez Notes Date Note Type Note Provider Name and Address Organization Details Recorded Time 12/30/2022 text/html HPI Notes: Leny here today for routine check in Has uncontrolled HTN; On amlodipine 5mg; - Not taking anything else despite HCTZ being on med list. Has had HTN for about 2 years Last check of renal function was slightly elevated at 2.0 but EGFR was WNL Previously also took med for cholesterol but didn't tolerate it per report Last check of cholesterol showed: Tchol 228 with triglycerisds of 254 Denies CASTRO, dizziness, vision, chest pain, SOB. Also reporting a lot of thirst at night only as well as nocturia; has been going on for some time Denies dysuria, hematuria. No urinary frequency during the day - preventative - cervical cancer screening: Last pap was about 2 years ago [facility] - breast cancer screening: Mammogram 2 years ago at [facility]. DUE - colon ca screening: due No period x 2 years Lives with partner and 2 of her adult children Erica Good [employer] [address] [place], [address], [facility] [place] [employer] 12/31/2022 10:40:06 01/27/2023 text/html HPI Notes: Pt he re to f/u on her uncontrolled HTN and CKD At last visit we increased amlodipine 10mg. She hasn't yet picked up new rx at pharmacy but has beent aking 2 of the 5mg pills doesn't notice any increased LE or other SE Says generally feeling well Denies CASTRO, vision changes, nausea, vomiting, confusion, LE edema Scr was 2.9 in April of this year On 01/01 her Scr was 3.6 with and eGFR of 15; on 01/14 her Scr was redrawn and was 3.7 with an eGFR of 14 She was supposed to also have urine micoralbumin and CBC checked, which lab failed to do as ordered Says went back on Friday to get those checked; just got her CBC results electronically today. After last visit she was referred to nephrology and for a renal u/s given her extremely elevated Scr Renal U/S was normal, no evidence of hydronephrosis. Still waiting to see specialist. Meets with someone at [facility] to sign up for insurance on 02/04 DANII Abrams [address] [place], [address], [facility] [place] [email or web address] [facility] 01/27/2023 13:54:44 03/04/2023 text/html HPI Notes: Leny is in for hospital discharge f/u. She was hospitalized at [facility] from 02/11- for NEDRA and hyperkalemia in the setting of CKD. Admission Creatinine 4.0 with K of 5.2. No concerning changes on EKG noted. Also noted to have normocytic anemia (Hgb 9.1 on discharge, previous Hgb 12.3) without evidence of bleeding, presumably this is related to her CKD.y Prior to hospitalization, she had a reassuring renal ultrasound. During hospital stay, she had the following medication changes made: - Losartan was discontinued - Amlodipine increased to 10mg BID - started Phoslo and Sodium Bicarb - started Torsemide 20mg daily Due for f/u BMP (discharge labs on 02/12 included Cr of 3.6, BUN 40, K 5.1). She has been referred to Nephrology, awaiting appt. Recently approved for [place], will likely transition care to [facility] for f/u. Leny notes persistent HTN today. Has a cuff at home, not checking BP regularly. Wendy Bacon MD [address] [facility] [place], [address], [facility] - [facility] 03/04/2023 10:51:32 OBGyn Episode No OBEpisode recorded.
--- OUTSIDE RECORDS SUMMARY | 2023-11-07 12:20 | XMS_ITS | Encounter Summary ---
Author Organization [facility] Address [address] [place] [address] Care Team Providers Care Patch Worker Name Role Phone None Reported, Pcp Primary Care Provider Unavail able Encounter Details Date Type Department Care Team (Late st Contact Info) Description 07/25/2023 Orders Only Division of Nephrology and Hypertension, [facility], in [place], [place] [address] [place] [phone] Nicholas Tracey, SIGN OUT CLERK, C.N.P., M.S.N. [address] [place] [phone] Social History Tobacco Use Types Packs/Day Years Used Date Smoking Tobacco: Never Smokeless Tobacco: Never Alcohol Use Standard Drinks/Week Comments Never 0 (1 standard drink = 0.6 oz pur e alcohol) [facility] Utilities Answer Date Recorded In the past 12 months has th e electric, gas, oil, or water [employer] threatened to shut off services in your [...] your living situation today? I have a [facility] place to live 03/13/2023 Sex and Gender Information Value Date Recorded Sex Assigned at Female 03/13/2023 1:38 PM IMPLEMENTATION PROJECT MANAGER Gender Identity Female 03/13/2023 1:42 PM IMPLEMENTATION PROJECT MANAGER Sexual Orientation Straight 03/13/2023 1: 42 PM IMPLEMENTATION PROJECT MANAGER documented as of this encounter Plan of Treatment Upcoming Encounters Date Type Department Care Team (Latest Contact Info) Description 11/27/2023 8:30 AM CDT Appointment Department of Radiology, [facility], in [place], [place] [address] [place] [address] Jo Root M.D., Ph.D. [address] [place] [phone] Discharge Disposition: Home or Self Care 11/27/2023 10:30 AM CDT Nurse Only Division of Nephrology and Hypertension in [place], [place] [address] [place] [address] Jo Root M.D., Ph.D. [address] [place] [phone] 11/27/2023 1:00 PM CDT Comprehensive Visit Division of Vascular and Endovascular Surgery in [place], [place] [address] [place] [phone] Jo Root M.D., Ph.D. [address] [place] [phone] documented as of this encounter Visit Diagnoses Not on filedocumented in this encounter Care Teams Patch Worker Relationship Specialty Start Date End Date None Reported, Pcp PCP - General Family Medicine 03/10/23 documented as of this encounter
[2023-11-07] MEDS: PIPERACILLIN/TAZOBACTAM 2.25 GM in 0.9 % SODIUM CHLORIDE Mini-bag 100 ML IVPB (12:23)
[2023-11-07 12:27] LABS: Basophils Percent Auto 0.1 % (0.0-3.0); Eosinophils Percent Auto 0.1 % (0.0-7.0); Hematocrit 33.7 % (33.0-51.0); Hemoglobin* 11.1 gm/dL (12.0-16.0); Immature Granulocytes Pct Auto 0.4 %; Lymphocytes Percent Auto 1.7 % (20-44); Mean Corpuscular HGB Conc 33 gm/dL (32-36); Mean Corpuscular Hemoglobin 32 pg (26-34); Mean Corpuscular Volume 97 fL (80-100); Monocytes Percent Auto 1.8 % (0.0-11.0); Neutrophils Percent Auto 95.9 % (42.0-72.0); Platelet Count* 123 K/uL (140-440); Red Blood Count 3.46 m/uL (4.00-5.20); White Blood Count* 19.57 K/uL (4.50-11.00)
[2023-11-07 12:31] LABS: Albumin* 4.1 g/dL (3.3-5.0); Chloride* 97 mmol/L (96-114)
[2023-11-07 12:32] LABS: Potassium* 4.3 mmol/L (3.6-5.1); Sodium* 131 mmol/L (135-149)
[2023-11-07 12:34] LABS: Bilirubin Total* 0.8 mg/dL (0.1-1.5); Creatinine* 7.4 mg/dL (0.5-1.5); Est. Creatinine Clearance* 6.68; Estimated Glomerular Filt Rate 6 ml/min
[2023-11-07 12:35] LABS: Alanine Aminotransferase* 34 U/L (4-35); Alkaline Phosphatase* 83 U/L (40-150); Anion Gap 17 mEq/L (7-15); Aspartate Amino Transferase* 35 U/L (12-35); Blood Urea Nitrogen* 61 mg/dL (5-24); Calcium* 8.2 mg/dL (8.4-10.6); Carbon Dioxide* 17 mmol/L (20-32); Glucose* 139 mg/dL (60-115); Total Protein* 7.1 g/dL (6.0-8.3)
[2023-11-07 12:36] LABS: Slide Review Reflex No
[2023-11-07 12:43] LABS: Lactate Sepsis w/Reflex* 2.5 mmol/L (0.5-1.9)
[2023-11-07] MEDS: VANCOMYCIN 2 GM/400 ML 2 GM/400 ML PIGGYBACK IVPB (13:04)
[2023-11-07 13:11] LABS: C Reactive Protein* 18.4 mg/dL (0.5-1.0)
[2023-11-07 14:46] LABS: Lactate Sepsis 2 Hour 1.4 mmol/L (0.5-1.9)
--- NOTE | 2023-11-07 16:37 | ED.NURSE ---
Report given to Ibarra VAISHALI.
== END 2023-11-07 16:20 | disposition short-term general hospital (02) ==
PROVIDERS: Emergency Provider Family Medicine; PCP Internal Medicine
DX: A41.9 Sepsis, unspecified organism (principal); A49.9 Bacterial infection, unspecified; Z99.2 Dependence on renal dialysis
CPT/HCPCS: 36415; 71250; 74176; 80053; 83605; 84145; 85025; 86140; 96365; 96375; 99285; 99291; A9270; J2543; J3372; J7050

== ENCOUNTER 2023-11-07 16:10 | Outpatient (CLI) | payer MEDICAID, SELFPAY ==
--- OUTSIDE RECORDS SUMMARY | 2023-11-09 08:24 | XMS_ITS | Referral Summary ---
Author Organization [facility] Address [address] [place] [address] Care Team Providers Care Electrocardiograph Repairer Name Role Phone None Reported, Pcp Primary Care Provider Unavail able Source Comments Patient records contain information from all sites at [facility]. For routine questions regarding patient records, call [phone] during business hours, M-F 8:00 AM - 5:00 PM Central Time. Record requests for emergency care only can be directed to [phone] at any time.[facility] Encounters Date Type Department Care Team Description 11/07/2023 5:45 PM CDT - Present Hospital Encounter [facility], [facility], [facility], Sixth Floor [address] [place] [phone] López Cabrales M.D., M.P.H. Cira Sanches M.D. 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 10/17/2023 Documentation Division of Nephrology and Hypertension, [facility], in [place], [place] [address] [place] [phone] Melly Goldstein, RJanieN. NEDRA (acute kidney injury) 10/13/2023 Orders Only Division of Nephrology and Hypertension, [facility], in [place], [place] [address] [place] [phone] Nicholas Tracey APRN C.N.P., M.S.N. 10/09/2023 12:17 PM CDT - 10/09/2023 3:11 PM CDT Hospital Encounter Department of Radiology in [place], [place] [address] [place] [phone] Yin Garcia APRN, C.N.P., D.N.P. Emigdio Colon M.D. Hemodialysis Status (HCC) Discharge Disposition: Home or Self Care 10/08/2023 Documentation Division of Nephrology and Hypertension in [place], [place] [address] [place] [address] Rosanna Serrato, R.N. 10/08/2023 Orders Only Division of Nephrology and Hypertension in [place], [place] [address] [place] [address] Yin Garcia APRN C.N.P., D.N.P. Hemodialysis Status (HCC) (Primary Dx) 09/24/2023 Episode Changes Transplant Center in [place], [place] [address] [place] [phone] Shonda Florecne 09/19/2023 Episode Changes Division of Nephrology and Hypertension in [place], [place] [address] [place] [phone] Jo Root M.D., Ph.D. from Last 3 Months Allergies No known active allergies Medications Medication Sig Dispensed Refills Start Date End Date Status loperamide (IMODIUM A-D) 2 mg tablet Take 2 tabs now then one tab after each watery stool. 05/25/2021 11/07/19 24 Discontinued amLODIPine (NORVASC) 10 mg tablet 10 mg daily. 11/02/2020 11/07/19 24 Discontinued carvediloL (COREG) 12.5 mg tablet Take 1 tablet (12.5 mg total) by mouth 2 (two) times a day with meals. 180 tablet 3 05/06/2023 05/06/19 25 Suspended Additional Information torsemide (DEMADEX) 20 mg tablet Take 2 tablets (40 mg total) by mouth daily. 180 tablet 3 05/06/2023 05/06/19 Suspended Additional Information Patient not taking.Reported on 11/07/2023 calcium acetate,phosphat bind, (PHOSLO) 667 mg (169 mg calcium) capsule Take 1 capsule (667 mg total) by mouth 3 (three) times a day with meals. 270 capsule 3 05/13/2023 Suspended Additional Information Patient not taking.Reported on 11/07/2023 sodium bicarbonate 650 mg tablet Take 2 tablets (1,300 mg total) by mouth 2 (two) times a day. 360 tablet 3 05/13/2023 Suspended Additional Information Patient not taking.Reported on 11/07/2023 clobetasoL (Temovate) 0.05 % cream Apply 1 Application topically 2 (two) times a day. Apply to affected area in her lower extremity. 30 g 08/06/2023 Suspended Additional Information Patient not taking.Reported on 11/07/2023 B complex-vitamin C-FA (Nephro-Wally) 0.8 mg tablet Take 1 tablet by mouth daily. Suspended Active Problems Problem Noted Date Diagnosed Date Bacteremia 11/07/2023 Hypertensive Chronic Kidney Disease With Stage 5 Chronic Kidney Disease Or End Stage Renal Disease 11/07/2023 Glomerulonephritis Immunoglobulin A (IgA Nephrop athy) 11/07/2023 Sepsis 11/07/2023 Fever Of Unknown Origin 11/07/2023 Leukocytosis 11/07/2023 Nodule Pulmonary 11/07/[address]al End St age Renal [...] = 0.6 oz pur e alcohol) [facility] Utilities Answer Date Recorded In the past 12 months has e Lov[employer], gas, oil, or water [employer] threatened to shut off services in your home? Yes 11/07/2023 Humiliation, Afraid, Rape, a nd Kick questionnaire Answer Date Recorded Within the last year, have y ou been afraid of your partner or ex-partner? Patient unable to answer 11/07/2023 Within the last year, have y ou been humiliated or emotionally abused in other ways by your partner or ex-partner? Patient unable to answer 11/07/2023 Within the last year, have y ou been kicked, hit, slapped, or otherwise physically hurt by your partner or ex-partner? Patient unable to answer 11/07/2023 Within the last year, have y ou been raped or forced to have any kind of sexual activity by your partner or ex-partner? Patient unable to answer 11/07/2023 Exercise Vital Sign Answer Date Recorde d [...] the money to buy more. Never true 11/07/19 Within the past 12 months, t he food you bought just didn't last and you didn't have money to get more. Never true 11/07/2023 PRAPARE - Transportation Answer Date Re corded In the past 12 months, has l ack of transportation kept you from medical appointments or from getting medications? No 10/19 In the past 12 months, has l ack of transportation kept you from meetings, work, or from getting things needed for daily living? No 11/07/2023 Nutrition Answer Date Recorded On average, how [...] your living situation today? [facility] 11/07/2023 Sex and Gender Information Value Date Recorded Sex Assigned at Female 03/13/2023 1:38 PM PROCEDURE ANALYST Gender Identity Female 03/13/2023 1:42 PM PROCEDURE ANALYST Sexual Orientation Straight 03/13/2023 1: 42 PM PROCEDURE ANALYST Last Filed Vital Signs Vital Sign Reading Time Taken Comments Blood Pressure 133/80 11/09/2023 7:52 AM CDT Pulse 94 11/09/2023 7:52 AM CDT Temperature 36.6 ??C (97.8 ??F) 11/09/2023 7:52 AM CD T Respiratory Rate 16 11/09/2023 7:52 AM CDT Oxygen Saturation 97% 11/09/2023 7:52 AM CDT Inhaled Oxygen Concentration - - Weight 104 kg (229 lb 8 oz) 11/09/2023 7:52 AM C DT Height 152.4 cm (5') 11/07/2023 5:54 PM CDT Body Mass Index 44.82 11/07/2023 5:54 PM CDT Plan of Treatment Upcoming Encounters Date Type Department Care Team (Latest Contact Info) Description 11/27/2023 8:30 AM CDT Appointment Department of Radiology, [facility], in [place], [place] [address] [place] [phone] Jo Root M.D., Ph.D. [address] [place] [phone] Discharge Disposition: Home or Self Care 11/27/2023 10:30 AM CDT Nurse Only Division of Nephrology and Hypertension in [place], [place] [address] [place] [phone] Jo Root M.D., Ph.D. [address] [place] [phone] 11/27/2023 1:00 PM CDT Comprehensive Visit Division of Vascular and Endovascular Surgery in [address] [phone] Jo Root M.D., Ph.D. [address] [place] [phone] Procedures The patient is currently admitted. The information in this section might not be complete until the patient is discharged. Procedure Name Priority Date/Time Associated Diagnosis Comments CBC WITH DIFFERENTIAL, B Routine 11/09/2023 7:37 AM CDT C. DIFFICILE TOXIN PCR, F Routine 11/09/2023 2:10 AM CDT HEMODIALYSIS Routine 11/08/2023 6:44 AM CDT RENAL FUNCTION PANEL, S Routine 11/08/2023 12:09 AM CDT CBC WITHOUT DIFFERENTIAL, B Routine 11/08/2023 12:09 AM CDT MICROSCOPIC MANUAL Routine 11/07/2023 7: 34 PM CDT DIPSTICK, U Routine 11/07/2023 7:34 PM CDT PH, U Routine 11/07/2023 7:34 PM CDT OSMOLALITY, U Routine 11/07/2023 7:34 PM CDT URINALYSIS WITH MICROSCOPIC Routine 11/07/2023 7:34 PM CDT BACTERIAL CULTURE, AEROBIC + SUSC, URINE Routine 11/07/2023 7:34 PM CDT ECG Routine 11/07/2023 6:50 PM CDT BACTERIA / SHWETHA CULTURE, BLOOD STAT 11/07/2023 6:38 PM CDT HEPATIC FUNCTION PANEL, S STAT 11/07/2023 6:31 PM CDT RENAL FUNCTION PANEL, S STAT 11/07/2023 6:31 PM CDT LACTATE FOR SEPSIS WITH REFLEX STAT 11/07/2023 6:31 PM CDT CBC WITH DIFFERENTIAL, B STAT 11/07/2023 6:31 PM CDT BACTERIA / SHWETHA CULTURE, BLOOD STAT 11/07/2023 6:[address] BODY Routine 11/07/2023 11:50 AM CDT OUTSIDE DX CHEST Routine 11/06/2023 9:15 PM CDT IR DIALYSIS / HIGH FLOW CATHETER EXCHANGE RAD - Routine (most inpatients and all outpatients) 10/09/2023 2:12 PM CDT Hemodialysis Status (HCC) from Last 3 Months Results * (ABNORMAL) CBC with Differential, Blood (11/09/2023 7:37 AM CDT) Only the most recent of2 resultswithin the time period is included. Hemoglobin 10.6(L) 11.6 - 15.0 g/dL 11/09/2023 8:22 AM CDT DTL Hematocrit 31.2(L) 35.5 - 44.9 % 11/09/2023 8:22 AM CDT DTL Erythrocytes 3.32(L) 3.92 - 5.13 x10(12)/L 11/09/2023 8:22 AM CDT DTL MCV 94.0 78.2 - 97.9 fL 11/09/2023 8:22 AM CDT DTL RBC Distrib Width 15.1 12.2 - 16.1 % 11/09/2023 8:22 AM CDT DTL Platelet Count 115(L) 157 - 371 x10(9)/L 11/09/2023 8:22 AM CDT DTL Leukocytes 8.7 3.4 - 9.6 x10(9)/L 11/09/2023 8:22 AM CDT DTL Neutrophils 6.68(H) 1.56 - 6.45 x10(9)/L 11/09/2023 8:22 AM CDT DHPM Lymphocytes 1.12 0.95 - 3.07 x10(9)/L 11/09/2023 8:22 AM CDT DTL Monocytes 0.65 0.26 - 0.81 x10(9)/L 11/09/2023 8:22 AM CDT DTL Eosinophils 0.27 0.03 - 0.48 x10(9)/L 11/09/2023 8:22 AM CDT DTL Basophils <0.03 0.01 - 0.08 x10(9)/L 11/09/2023 8:22 AM CDT DTL Blood (Blood, Venous) 11/09/2023 7:37 AM CDT 11/09/2023 8:13 AM CDT Cira Sanches M.D. LAB BLOOD ADD-ON Performing Organization Address City/[facility] Co de Phone Number [facility] 200 [place] [address], [facility] 200 [place] [address] [facility] 200 [place] [address] * Clostridioides (Clostridium) Difficile Toxin, Molecular Detection, PCR, Feces (11/09/2023 2:10 AM CDT) C. difficile Toxin, F Negative Negative 11/09/2023 3:31 AM CDT DTL Stool (Stool) 11/09/2023 2:1 0 AM CDT 11/09/2023 2:39 AM CDT Cira Sanches M.D. LAB MICROBIOLOGY - GENERAL ORDERABLES Performing Organization Address [facility] de Phone Number [facility] 200 [place], [place] [address] 200 [place] [address] * (ABNORMAL) Renal Function Panel (11/08/2023 12:09 AM CDT) Only the most recent of2 resultswithin the time period is included. Potassium, S 4.0 3.6 - 5.2 mmol/L 11/08/2023 1:29 AM CDT DTL Sodium, S 132(L) 135 - 145 mmol/L 11/08/2023 1:29 AM CDT DTL Chloride, S 97(L) 98 - 107 mmol/L 11/08/2023 1:29 AM CDT DTL Bicarbonate, S 16(L) 22 - 29 mmol/L 11/08/2023 1:29 AM CDT DTL Anion Gap 19(H) 7 - 15 11/08/2023 1:29 AM CDT DTL BUN (Blood Urea Nitrogen), S 71(H) 6 - 21 mg/dL 11/08/2023 1:29 AM CDT DTL Creatinine 8.12(H) 0.59 - 1.04 mg/dL 11/08/2023 1:29 AM CDT DTL Estimated GFR (eGFR) <15(L) >=60 mL/min/BSA 11/08/2023 1:29 AM CDT DTL Comment: Estimated GFR calculated using the 2020 CKD_EPI creatinine equation. Calcium, Total, S 7.8(L) 8.6 - 10.0 mg/dL 11/08/2023 1:29 AM CDT DTL Glucose, S 129 70 - 140 mg/dL 11/08/2023 1:29 AM CDT DTL Albumin, S 3.3(L) 3.5 - 5.0 g/dL 11/08/2023 1:29 AM CDT DTL Phosphorus (Inorganic), S 5.3(H) 2.5 - 4.5 mg/dL 11/08/2023 1:29 AM CDT DTL Blood (Blood, Venous) 11/08/2023 12:09 AM CDT 11/08/2023 1:12 AM CDT Haley Ding P.A.-C. LAB BLOOD ADD-O N [facility] [address] [place] [address], [facility] DTL [facility] [address] [place] [address] * (ABNORMAL) CBC without Differential (11/08/2023 12:09 AM CDT) Hemoglobin 10.0(L) 11.6 - 15.0 g/dL 11/08/2023 1:13 AM CDT DTL Hematocrit 29.7(L) 35.5 - 44.9 % 11/08/2023 1:13 AM CDT DTL Erythrocytes 3.11(L) 3.92 - 5.13 x10(12)/L 11/08/2023 1:13 AM CDT DTL MCV 95.5 78.2 - 97.9 fL 11/08/2023 1:13 AM CDT DTL RBC Distrib Width 15.3 12.2 - 16.1 % 11/08/2023 1:13 AM CDT DTL Platelet Count 101(L) 157 - 371 x10(9)/L 11/08/2023 1:13 AM CDT DTL Leukocytes 15.8(H) 3.4 - 9.6 x10(9)/L 11/08/2023 1:13 AM CDT DTL Blood (Blood, Venous) 11/08/2023 12:09 AM CDT 11/08/2023 1:04 AM CDT Haley Ding P.A.-C. [place] [address], [place] [address] * (ABNORMAL) Dipstick, Urine (11/07/2023 7:34 PM CDT) Hemoglobin, QL, U Large(A) Negative 11/07/2023 8:24 PM CDT DTL Leukocyte Esterase, U Trace(A) Negative 11/07/2023 8:24 PM CDT DTL Nitrite, U Negative Negative 11/07/2023 8:24 PM CDT DTL Ketone, U Negative Negative mg/dL 11/07/2023 8:24 PM CDT DTL Glucose, U Negative Negative mg/dL 11/07/2023 8:24 PM CDT DTL Urine 11/07/2023 7:34 PM CDT 11/07/2023 8:02 PM CDT Haley GalvinCJanie LAB URINE ORDER ZORAN [facility] [address] [place] [address], [facility] 200 [place] [address] * (ABNORMAL) Microscopic Manual (11/07/2023 7:34 PM CDT) Microscopy Abnormal 11/07/2023 8:59 PM CDT DTL RBC 51-100(A) <3 /hpf 11/07/2023 8:59 PM CDT DTL Dysmorphic RBC <25 <25 % 11/07/2023 8:59 PM CDT DTL WBC 1-3 /hpf 11/07/2023 8:59 PM CDT DTL Comment: ----REFERENCE VALUE---- <4 ??(Males) <11 (Females) Casts, Hyaline Occas /lpf 11/07/2023 8:59 PM CDT DTL Squamous Epithelial Cells, U 4-10 /hpf 11/07/2023 8:59 PM CDT DTL Bacteria Present(A) 11/07/2023 8:59 PM CDT DTL Urine 11/07/2023 7:34 PM CDT 11/07/2023 8:24 PM CDT Haley Ding P.A.-C. LAB URINE ORDER ZORAN [facility] 200 [place] [address], [facility] 200 [place] [address] * Bacterial Culture, Aerobic + Susceptibility, Urine (11/07/2023 7:34 PM CDT) Urine Culture No growth after 1 day of incubation. 11/09/2023 6:31 AM CDT DTL Urine (Urine, Midstream) 11/07/2023 7:34 PM CDT 11/07/2023 8:12 PM CDT Comment:Specimen Source Site : Urine Haley Ding P.A.-C. LAB MICROBIOLOG Y - GENERAL ORDERABLES [facility] [address] [place] [address], [facility] 200 [place] [address] * pH, Urine (11/07/2023 7:34 PM CDT) pH, U 4.8 4.5 - 8.0 11/07/2023 8:3 9 PM CDT DTL Urine 11/07/2023 7:34 PM CDT 11/07/2023 8:02 PM CDT Haely Ding P.A.-C. LAB URINE ORDER ZORAN Performing Organization Address City/[facility]/ZIP Co de Phone Number [facility] [address] [place], [place] [address] 200 [place] [address] * Osmolality, Urine (11/07/2023 7:34 PM CDT) Pathologist [facility] Osmolality, U 277 150 - 1150 mOsm/kg 11/07/2023 8:39 PM CDT DTL Urine 11/07/2023 7:34 PM CDT 11/07/2023 8:02 PM CDT Haley Ding P.A.-C. LAB URINE ORDER ZORAN Performing Organization Address City/[facility]/ZIP Co de Phone Number [facility] [address] [place], [place] [address] [address] [place] [address] * (ABNORMAL) Urinalysis, with Microscopic: Urine, Midstream (11/07/2023 7:34 PM CDT) Source Urine, Urine, Midstream 11/07/2023 8:02 PM CDT DTL Color, U Yellow 11/07/2023 8:02 PM CDT DTL Clarity, U Clear 11/07/2023 8:02 PM CDT DTL Protein, U 77(H) <26 mg/dL 11/07/2023 8:46 PM CDT DTL Protein/Osmol ality 2.78(H) <0.42 ratio 11/07/2023 8:46 PM CDT DTL Predicted 24 HR Protein, U 1693(H) <229 mg/24 h 11/07/2023 8:46 PM CDT DTL Predicted Range 418-6853 mg/24 h 11/07/2023 8:46 PM CDT DTL Urine (Urine, Midstream) 11/07/2023 7:34 PM CDT 11/07/2023 8:02 PM CDT Haley Ding P.A.-C. LAB URINE ORDER ZORAN Performing Organization Address [facility] Co de Phone Number [facility] [address] [place] [address], [place] DTL [address] [address] * ECG 12 Lead (11/07/2023 6:50 PM CDT) Ventricular Rate ECG/Min 126 BPM MUSE NH Interval 134 ms MUSE QRSD Interval 90 ms MUSE QT Interval 318 ms MUSE QTC Interval 460 ms MUSE P [place] 42 degrees MUSE R [place] 38 degrees MUSE T Wave [place] 22 degrees MUSE 11/07/2023 6:50 PM CDT 11/07/2023 6:52 PM CDT Impressions MUSE - 11/07/2023 6:52 PM CDT Sinus tachycardia Nonspecific ST abnormality When compared with ECG of 10-Mar-2023 13:28, Vent. rate has increased by ??57 bpm Reviewed by BESSY Li Narrative Procedure Note George Burden M.D. - 11/07/2023 IMPRESSION: Sinus tachycardia Nonspecific ST abnormality When compared with ECG of 10-Mar-2023 13:28, Vent. rate has increased by 57 bpm Reviewed by BESSY Li Haley Ding P.A.-C. ECG ORDERABLES MUSE NA * Lactate for Sepsis with Reflex (11/07/2023 6:31 PM CDT) Lactate, P 1.0 0.5 - 2.2 mmol/L 11/07/2023 6:51 PM CDT STMA Blood (Blood, Venous) 11/07/2023 6:31 PM CDT 11/07/2023 6:37 PM CDT Haley Ding P.A.-C. LAB BLOOD NON A DD-ON Performing Organization Address City/State/[place] Co de Phone Number [facility] [address] [place] [address], [facility] [address] [place] [address] * (ABNORMAL) Hepatic Function Panel (11/07/2023 6:31 PM CDT) Bilirubin, Total, S 0.8 0.0 - 1.2 mg/dL 11/07/2023 7:56 PM CDT DTL Bilirubin, Direct, S 0.5(H) 0.0 - 0.3 mg/dL 11/07/2023 7:56 PM CDT DTL Aspartate Aminotransferase (AST), S 37 8 - 43 U/L 11/07/2023 7:56 PM CDT DTL Alanine Aminotransferase (ALT), S 38 7 - 45 U/L 11/07/2023 7:56 PM CDT DTL Alkaline Phosphatase, S 92 35 - 104 U/L 11/07/2023 7:56 PM CDT DTL Albumin, S 3.6 3.5 - 5.0 g/dL 11/07/2023 7:56 PM CDT DTL Protein, Total, S 6.3 6.3 - 7.9 g/dL 11/07/2023 7:56 PM CDT DTL Blood (Blood, Venous) 11/07/2023 6:31 PM CDT 11/07/2023 7:36 PM CDT Haley Timur P.A.-C. LAB BLOOD ADD-O N Performing Organization Address [facility] de Phone Number [facility] [address] [place] [address], [place] DTL [facility] [address] [place] [address] * CT chest abdomen pelv wo con-Outside CT Body (11/07/2023 11:50 AM CDT) 11/07/2023 11:5 0 AM CDT Narrative [facility] - 11/07/2023 2:38 PM CDT This order has been created and auto-finalized to support the import of outside images. If available, original interpretation can be found on the Media Tab in Chart Review, in Document Viewer, as an image in QREADS or as an Addendum. If a re-interpretation or overread is required please follow defined workflow.?? Provider Not In System IMG CT PROCEDURES Performing Organization Address [facility] de Phone Number [facility] NA * XR CHEST 1V PORTABLE-Outside Chest Xray (11/06/2023 9:15 PM CDT) Narrative [facility] - 11/07/2023 2:04 PM CDT This order has been created and auto-finalized to support the import of outside images. If available, original interpretation can be found on the Media Tab in Chart Review, in Document Viewer, as an image in QREADS or as an Addendum. If a re-interpretation or overread is required please follow defined workflow.?? Provider Not In System IMG DIAGNOSTIC IM AGING PROCEDURES Performing Organization Address [facility] Co de Phone Number [facility] NA * IR Dialysis / High Flow Catheter [...] catheter were prepped and draped sterilely. A import/export clerk view showed the tip of the catheter [...] obtained from the patient via in person yardage caller.. Immediately prior to starting the procedure, in [...] dialysis catheter were prepped anddraped sterilely. A import/export clerk view showed the tip of the catheter [...] consent obtained from thepatient via in person yardage caller.. Immediately prior tostarting the procedure, in the [...] Garcia APRN, C.N.P., D.N.P. IMG IR PROCEDURES from Last 3 Months Advance Directives For more information, please contact: [phone] * Full Code (Latest Code Status on File) Date Activated Date Inactivated Comments 11/07/2023 6:39 PM Question Answer Comments Full Code: Not Discussed Due to: Not medically appropriate * Full Code Date Activated Date Inactivated Comments 10/09/2023 1:45 PM 11/07/2023 5:45 PM Question Answer Comments Full Code: Not Discussed Due to: Patient not available * Full Code Date Activated Date Inactivated Comments 03/17/2023 12:45 PM 03/17/2023 5:05 PM Question Answer Comments Full Code: Not Discussed Due to: Not medically appropriate Care Teams Electrocardiograph Repairer Relationship Specialty Start Date End Date None Reported, Pcp PCP - General Family Medicine 03/10/23
--- OUTSIDE RECORDS SUMMARY | 2023-11-09 08:24 | XMS_ITS ---
Author Organization [facility] Address [address] [place] [address] Care Team Providers Care Home Decorator Name Role Phone None Reported, Pcp Primary Care Provider Unavail able Dialysis Plan of Treatment Dialysis Prescription As-Of Date Prescribed Dry Weight Primary Se tting 11/08/2023 Acute Dialysis S CA Instructions Modality Prescribed Duration (hours) Frequency Blood Flow Rate Conventional Hemodialysis 3:30 35 0 mL/min Dialysis Access Type Location Dialysate Sodium Level Potassium Level Calcium Level Bicarbonate Level 140 mEq/L 3 mEq/L 3 mEq/L 35 mEq/L from Last 30 Days Procedures The patient is currently admitted. The [...] Hemodialysis Status (HCC) from Last 3 Months Allergies No known [...] with meals. 180 tablet 3 05/06/2023 05/06/19 Suspended Additional Information torsemide (DEMADEX) 20 mg [...] drink = 0.6 oz pur e alcohol) [facility] Utilities Answer Date Recorded In the past 12 months has [facility] [employer], Part of [employer], [email or web address] or [employer] threatened to shut off services in your [...] situation today? I have a [facility] place to live 11/07/2023 Sex and Gender Information Value Date Recorded Sex Assigned at Female 03/13/2023 1:38 PM ESCORT BLIND Gender Identity Female 03/13/2023 1:42 PM ESCORT BLIND Sexual Orientation Straight 03/13/2023 1: 42 PM ESCORT BLIND Last Filed Vital Signs Vital Sign Reading [...] Mass Index 44.82 11/07/2023 5:54 PM CDT Results * (ABNORMAL) CBC with Differential, Blood [...] M.D. LAB BLOOD ADD-ON Performing Organization Address City/[facility]/ZIP Co de Phone Number [facility] [address] [place] [address], [facility] [address] [place] [address] [facility] [address] [place] [address] * Clostridioides (Clostridium) Difficile Toxin, Molecular Detection, PCR, Feces (11/09/2023 2:10 AM CDT) C. difficile Toxin, F Negative Negative 11/09/2023 3:31 AM CDT DTL Stool (Stool) 11/09/2023 2:1 0 AM CDT 11/09/2023 2:39 AM CDT Cira Sanches M.D. LAB MICROBIOLOGY - GENERAL ORDERABLES [facility] [address] [place] [address], [facility] [address] [address] * (ABNORMAL) Renal Function Panel (11/08/2023 12:09 AM CDT) Only the most recent of2 resultswithin the time period is included. [facility] Potassium, S 4.0 3.6 - 5.2 mmol/L [...] Haley Ding P.A.-C. LAB BLOOD ADD-O N [facility] [address] [place] [address], [facility] DTL [facility] [address] [place] [address] * (ABNORMAL) CBC without Differential (11/08/2023 12:09 [...] Haley Ding P.A.-C. LAB BLOOD ADD-O N [facility] [address] [place], [place] [address] [address] [place] [address] * (ABNORMAL) Dipstick, Urine (11/07/2023 7:34 PM CDT) Pathologist [facility] Hemoglobin, QL, U Large(A) Negative 11/07/2023 8:24 [...] LAB URINE ORDER ZORAN Performing Organization Address City/[facility] Co de Phone Number [facility] [address] [place] [address], [facility] [address] [place] [address] * (ABNORMAL) Microscopic Manual (11/07/2023 7:34 PM [...] LAB URINE ORDER ZORAN Performing Organization Address City/[facility]/ZIP Co de Phone Number [facility] [address] [place] [address], [facility] [address] [place] [address] * Bacterial Culture, Aerobic + Susceptibility, Urine (11/07/2023 7:34 PM CDT) Urine Culture No growth after 1 day of incubation. 11/09/2023 6:31 AM CDT DT Urine (Urine, Midstream) 11/07/2023 7:34 PM CDT 11/07/2023 8:12 PM CDT Comment:Specimen Source Site : Urine Haley Ding P.A.-C. LAB MICROBIOLOG Y - GENERAL ORDERABLES [facility] [address] [place], [place] [address] [place] [address] [address] [place] [address] * pH, Urine (11/07/2023 7:34 PM CDT) pH, U 4.8 4.5 - 8.0 11/07/2023 8:3 9 PM CDT DT Urine 11/07/2023 7:34 PM CDT 11/07/2023 8:02 PM CDT Haley Ding P.A.-C. LAB URINE ORDER ZORAN Performing Organization Address City/[facility]/ZIP Co de Phone Number [facility] [address] [place], [place] [address] [place] [address] [address] [place] [address] * Osmolality, Urine (11/07/2023 7:34 PM CDT) Osmolality, U 277 150 - 1150 mOsm/kg 11/07/2023 8:39 PM CDT DT Urine 11/07/2023 7:34 PM CDT 11/07/2023 8:02 PM CDT Haley Ding P.A.-C. LAB URINE ORDER ZORAN Performing Organization Address City/[facility]/ZIP Co de Phone Number [facility] [address] [place] [address], [facility] [address] [place] [address] * (ABNORMAL) Urinalysis, with Microscopic: Urine, Midstream [...] Haley Ding P.A.-C. LAB URINE ORDER ZORAN [place] [address] [place] [address], [facility] 200 [place] [address] * ECG 12 Lead (11/07/2023 6:50 PM CDT) Ventricular Rate ECG/Min 126 BPM MUSE SC Interval 134 ms MUSE QRSD Interval 90 ms MUSE QT Interval 318 ms MUSE QTC Interval 460 ms MUSE P [place] 42 degrees MUSE R [place] 38 degrees MUSE T Wave [place] 22 degrees MUSE 11/07/2023 6:50 PM CDT [...] BESSY Li Haley Ding P.A.-C. ECG ORDERABLES Performing Organization Address City/[facility] Co de Phone Number MUSE NA * Lactate for Sepsis with Reflex (11/07/2023 6:31 PM CDT) Pathologist [facility] Lactate, P 1.0 0.5 - 2.2 mmol/L 11/07/2023 6:51 PM CDT STMA Blood (Blood, Venous) 11/07/2023 6:31 PM CDT 11/07/2023 6:37 PM CDT Haley Ding P.A.-C. LAB BLOOD NON A DD-ON Performing Organization Address City/[facility] Co de Phone Number [facility] [address] [place] [address], [facility] STMA [facility] [address] [place] [address] * (ABNORMAL) Hepatic Function Panel (11/07/2023 6:31 [...] PM CDT 11/07/2023 7:36 PM CDT Haley Ding P.A.-C. LAB BLOOD ADD-O N Performing Organization Address [facility] de Phone Number [facility] [address] [place] [address], [facility] DTL [facility] [address] [place] [address] * CT chest abdomen pelv wo con-Outside CT Body (11/07/2023 11:50 AM CDT) 11/07/2023 11:[address] [facility] - 11/07/2023 2:38 PM CDT This order [...] System IMG CT PROCEDURES Performing Organization Address [facility] de Phone Number [facility] NA * XR CHEST 1V PORTABLE-Outside Chest Xray (11/06/2023 9:15 PM CDT) Narrative [facility] - 11/07/2023 2:04 PM CDT This order [...] DIAGNOSTIC IM AGING PROCEDURES Performing Organization Address [facility] de Phone Number [facility] NA * IR [...] catheter were prepped and draped sterilely. A electrical discharge machine operator view showed the tip of the catheter [...] obtained from the patient via in person master electrician.. Immediately prior to starting the procedure, in [...] dialysis catheter were prepped anddraped sterilely. A electrical discharge machine operator view showed the tip of the catheter [...] consent obtained from thepatient via in person master electrician.. Immediately prior tostarting the procedure, in the [...]
--- OUTSIDE RECORDS SUMMARY | 2023-11-09 08:24 | XMS_ITS ---
Author Organization [facility] Address [address] [place] [address] Care Team Providers Care Millroom Supervisor Name Role Phone Unavailable Unavailable Unavailable Surgery Details Not on file Complications Check Surgery Details section. Procedure Estimated Blood Loss Check Surgery Details section. Procedure Findings Check Surgery Details section. Procedure Specimens Taken Check Surgery Details section.
--- OUTSIDE RECORDS SUMMARY | 2023-11-09 08:24 | XMS_ITS | Referral Summary ---
Author Organization [facility] Address [address] [place] [address] Care Team Providers Care Interior Design Program Chair Name Role Phone No Ref-Primary, Physician Primary [...] of Treatment Not on file Care Teams Interior Design Program Chair Relationship Specialty Start Date End Date No Ref-Primary, Physician PCP - General 05/25/21
--- OUTSIDE RECORDS SUMMARY | 2023-11-09 08:24 | XMS_ITS | Clinical Summary ---
Author Organization [facility] Address [address] [place] [address] Care Team Providers Care Internal Revenue Service Agent Name Role Phone None Reported, Pcp Primary Care Provider Unavail able Source Comments Patient records contain information from all sites at [facility]. For routine questions regarding patient records, call [phone] during business hours, M-F 8:00 AM - 5:00 PM Central Time. Record requests for emergency care only can be directed to [phone] at any time.[facility] Allergies No known active allergies Medications Medication [...] mouth daily. 180 tablet 3 05/06/2023 05/06/19 25 Suspended Additional Information Patient not taking.Reported on [...] 5:45 PM CDT - Present Hospital Encounter [facility], [facility], Sixth Floor [address] [place] [phone] López Cabrales M.D., M.P.H. Cira Sanches M.D. Chronic Failure Renal End Stage Renal Disease Dialysis Dependent (HCC) (Primary Dx) 11/07/2023 Intake [facility] 11/07/2023 Clinical Communication Division of Nephrology and Hypertension in [place], [place] [address] [place] [phone] Jo Root M.D., Ph.D. 10/17/2023 Documentation Division of Nephrology and Hypertension, [facility], in [place], [place] [address] [place] [phone] Melly Goldstein, RJanieN. NEDRA (acute kidney injury) 10/13/2023 Orders Only Division of Nephrology and Hypertension, [facility], in [place], [place] [address] [place] [address] Nicholas Tracey APRN, C.N.P., M.S.N. 10/09/2023 12:17 PM CDT - 10/09/2023 3:11 PM CDT Hospital Encounter Department of Radiology in [place], [place] [address] [place] [phone] Yin Garcia APRN C.N.P., D.N.P. Emigdio Colon M.D. Hemodialysis Status (HCC) Discharge Disposition: Home or Self Care 10/08/2023 Documentation Division of Nephrology and Hypertension in [place], [place] [address] [place] [phone] Rosanna Serrato, R.N. 10/08/2023 Orders Only Division of Nephrology and Hypertension in [place], [place] [address] [place] [phone] Yin Garcia APRN C.N.P., D.N.P. Hemodialysis Status (HCC) (Primary Dx) 09/24/2023 Episode Changes Transplant Center in [place] [address] [place] [phone] Shonda Florence 09/19/2023 Episode Changes Division of Nephrology and Hypertension in [place], [place] [address] [place] [address] Jo Root M.D., Ph.D. from Last 3 Months Immunizations Name Administration Dates Next Due DTaP ([employer], [employer]) 03/08/2009 Influenza, Unspecified 11/27/2009,11/17/2008 Social History Tobacco Use Types Packs/Day Years Used Date Smoking Tobacco: Never Smokeless Tobacco: Never Tobacco Cessation:Counseling Given: Not Answered Alcohol Use Standard Drinks/Week Comments Never 0 (1 standard drink = 0.6 oz pur e alcohol) [facility] Utilities Answer Date Recorded In the past 12 months has e [employer], gas, oil, or water [employer] threatened to shut off services in your [...] your living situation today? I have a [facility] place to live 11/07/2023 Sex and Gender Information Value Date Recorded Sex Assigned at Female 03/13/2023 1:38 PM RIBBING MACHINE OPERATOR Gender Identity Female 03/13/2023 1:42 PM RIBBING MACHINE OPERATOR Sexual Orientation Straight 03/13/2023 1: 42 PM RIBBING MACHINE OPERATOR Last Filed Vital Signs Vital Sign Reading [...] 8:30 AM CDT Appointment Department of Radiology, [facility], in [place], [place] [address] [place] [phone] Jo Root M.D., Ph.D. [address] [place] [phone] Discharge Disposition: Home or Self Care 11/27/2023 10:30 AM CDT Nurse Only Division of Nephrology and Hypertension in [place], [place] [address] [place] [phone] Jo Root M.D., Ph.D. [address] [place] [phone] 11/27/2023 1:00 PM CDT Comprehensive Visit Division of Vascular and Endovascular Surgery in [place], [place] [address] [place] [phone] Jo Root M.D., Ph.D. [address] [place] [phone] Health Maintenance Due Date Last Done Comments CT Colonography 1974 Cologuard 1974 Colonoscopy 1974 Colorectal Cancer Screening 1974 FIT 1974 HIV Screening 1974 Hepatitis C Screening 1974 Mammogram 1974 Visit: Chronic Disease, age 18+ 1974 Meningococcal Vaccine (1 - R isk [...] 2023 , 12/17/2018, 05/10/2016, Additional history exists Office Visit for Blood Press ure Check / Re-check 02/06/2024 11/07/2023 DTaP,Tdap,and Td Vaccines (3 - Td or Tdap) 05/10/2026 05/10/2016, 03/08/2009, 03/08/2009 Fasting Glucose for Diabetes Screening 11/07/2026 11/08/2023, 11/07/2023, 04/08/2023, Additional history exists Procedures The patient is currently admitted. The [...] M.D. LAB BLOOD ADD-ON Performing Organization Address City/[facility]/ZIP Co de Phone Number [facility] [address] [place] [address], [facility] [address] [place] [address] [facility] [address] [place] [address] * Clostridioides (Clostridium) Difficile Toxin, Molecular Detection, PCR, Feces (11/09/2023 2:10 AM CDT) C. difficile Toxin, F Negative Negative 11/09/2023 3:31 AM CDT DTL Stool (Stool) 11/09/2023 2:1 0 AM CDT 11/09/2023 2:39 AM CDT Cira Sanches M.D. LAB MICROBIOLOGY - GENERAL ORDERABLES Performing Organization Address City/[facility]/ZIP Co de Phone Number [facility] [address] [place] [address], [facility] [address] [place] [address] * (ABNORMAL) Renal Function Panel (11/08/2023 12:09 [...] Haley Ding P.A.-C. LAB BLOOD ADD-O N [address] [address], [facility] [address] [place] [address] * (ABNORMAL) CBC without Differential (11/08/2023 12:09 [...] LAB BLOOD ADD-O N Performing Organization Address City/[facility]/ZIP Co de Phone Number [address] [place] [address] * (ABNORMAL) Dipstick, Urine (11/07/2023 7:34 PM CDT) Pathologist [facility] Hemoglobin, QL, U Large(A) Negative 11/07/2023 8:24 [...] CDT Haley GalvinCJanie LAB URINE ORDER ZORAN Performing Organization Address City/[facility]/ZIP Co de Phone Number [phone] [place] [address] [address] * (ABNORMAL) Microscopic Manual (11/07/2023 7:34 PM CDT) Pathologist [facility] Microscopy Abnormal 11/07/2023 8:59 PM CDT DTL [...] LAB URINE ORDER ZORAN Performing Organization Address City/[facility] Co de Phone Number [facility] [address] [place] [address], [facility] [address] [place] [address] * Bacterial Culture, Aerobic + Susceptibility, Urine (11/07/2023 7:34 PM CDT) Pathologist [facility] Urine Culture No growth after 1 day of incubation. 11/09/2023 6:31 AM CDT DTL Urine (Urine, Midstream) 11/07/2023 7:34 PM CDT 11/07/2023 8:12 PM CDT Comment:Specimen Source Site : Urine Haley Ding P.A.-C. LAB MICROBIOLOG Y - GENERAL ORDERABLES Performing Organization Address City/[facility]/ZIP Co de Phone Number [facility] [address] [place] [address], [facility] [address] [place] [address] * pH, Urine (11/07/2023 7:34 PM CDT) Pathologist [facility] pH, U 4.8 4.5 - 8.0 11/07/2023 8:3 9 PM CDT DTL Urine 11/07/2023 7:34 PM CDT 11/07/2023 8:02 PM CDT Haley Ding P.A.-C. LAB URINE ORDER ZORAN Performing Organization Address City/[facility]/ZIP Co de Phone Number [facility] [address] [place] [address] * Osmolality, Urine (11/07/2023 7:34 PM CDT) [facility] Osmolality, U 277 150 - 1150 mOsm/kg 11/07/2023 8:39 PM CDT DTL Urine 11/07/2023 7:34 PM CDT 11/07/2023 8:02 PM CDT Haley GalvinCJanie LAB URINE ORDER ZORAN Performing Organization Address City/[facility] Co de Phone Number [facility] [address] [place] [address], [facility] [address] [place] [address] * (ABNORMAL) Urinalysis, with Microscopic: Urine, Midstream (11/07/2023 7:34 PM CDT) Pathologist [facility] Source Urine, Urine, Midstream 11/07/2023 8:02 PM [...] LAB URINE ORDER ZORAN Performing Organization Address [facility] Co de Phone Number [facility] [address] [place] [address], [facility] DTL [facility] [address] [place] [address] * ECG 12 Lead (11/07/2023 6:50 PM CDT) Ventricular Rate ECG/Min 126 BPM MUSE NM Interval 134 ms MUSE QRSD Interval 90 ms MUSE QT Interval 318 ms MUSE QTC Interval 460 ms MUSE P [place] 42 degrees MUSE R [place] 38 degrees MUSE T Wave [place] 22 degrees MUSE 11/07/2023 6:50 PM CDT [...] Ding P.A.-C. ECG ORDERABLES Performing Organization Address [facility] Co de Phone Number MUSE NA * Lactate for Sepsis with Reflex (11/07/2023 6:31 PM CDT) Lactate, P 1.0 0.5 - 2.2 mmol/L 11/07/2023 6:51 PM CDT STMA Blood (Blood, Venous) 11/07/2023 6:31 PM CDT 11/07/2023 6:37 PM CDT Haley Ding P.A.-C. LAB BLOOD NON A DD-ON Performing Organization Address [facility] Co de Phone Number [facility] [address] [place] [address], [facility] STMA [facility] 200 [place] [address] * (ABNORMAL) Hepatic Function Panel (11/07/2023 6:31 [...] LAB BLOOD ADD-O N Performing Organization Address [facility]/ZIP Co de Phone Number [facility] [address] [place] [address], [facility] DTL [facility] [address] [place] [address] * CT chest abdomen pelv wo con-Outside CT Body (11/07/2023 11:50 AM CDT) 11/07/2023 11:5 0 AM CDT Narrative [facility] - 11/07/2023 2:38 PM CDT This order [...] System IMG CT PROCEDURES Performing Organization Address [facility] Co de Phone Number [facility] NA * XR [...] DIAGNOSTIC IM AGING PROCEDURES Performing Organization Address [facility] de Phone Number [facility] NA * IR [...] catheter were prepped and draped sterilely. A associate financial representative view showed the tip of the catheter [...] obtained from the patient via in person marketing summer intern.. Immediately prior to starting the procedure, [...] dialysis catheter were prepped anddraped sterilely. A associate financial representative view showed the tip of the catheter [...] consent obtained from thepatient via in person marketing summer intern.. Immediately prior tostarting the procedure, in [...] Advance Directives For more information, please contact: [phone] * Full Code (Latest Code Status on [...] Due to: Not medically appropriate Care Teams Internal Revenue Service Agent Relationship Specialty Start Date End Date None Reported, Pcp PCP - General Family Medicine 03/10/23
--- OUTSIDE RECORDS SUMMARY | 2023-11-09 08:24 | XMS_ITS | Encounter Summary ---
Author Organization [facility] Address [address] [place] [id number] Care Team Providers Care Knowledge Management Advisor Name Role Phone None Reported, Pcp Primary Care Provider Unavail able Reason for Visit * Auth/Cert (Routine) Specialty Diagnoses / Procedures Referred By Contac t Referred To Contact Diagnoses Bacteremia BACTEREMIA; DIALYSIS; LUNG NODULE Procedures DIR Referral ID Status Reason Start Date Expiration Date Visits Re quested Visits Authorized [id number] 1 1 Encounter Details Date Type Department Care Team (Latest Contact Info) Description 11/07/2023 5:45 PM CDT - Present Hospital Encounter [facility], [facility], [facility], Sixth Floor [address] [place] [phone] López Cabrales M.D., M.P.H. [address] [place] [address] [phone] Cira Sanches M.D. [address] [place] [phone] Chronic Failure Renal End Stage Renal Disease Dialysis Dependent (HCC) (Primary Dx) Social History Tobacco Use Types Packs/Day Years Used Date Smoking Tobacco: Never Smokeless Tobacco: Never Alcohol Use Standard Drinks/Week Comments Never 0 (1 standard drink = 0.6 oz pur e alcohol) [facility] Utilities Answer Date Recorded In the past 12 months has e electric, gas, oil, or water company [...] [facility] 11/07/2023 Sex and Gender Information Value Date Recorded Sex Assigned at Female 03/13/2023 1:38 PM MAINFRAME CONSULTANT Gender Identity Female 03/13/2023 1:42 PM MAINFRAME CONSULTANT Sexual Orientation Straight 03/13/2023 1: 42 PM MAINFRAME CONSULTANT documented as of this encounter Last Filed [...] Mass Index 44.82 11/07/2023 5:54 PM CDT documented in this encounter Progress Notes * Aura Park, PharmShady., R.Ph., BCPS - 11/08/2023 8:24 AM CDT Pharmacist Progress Note Reason for admission: Bacteremia PMH: HTN, prediabetes, CKD on HD MWF OBJECTIVE Home medications: Held: carvedilol, PhosLo/sodium bicarb/torsemide (pt reports stopping on own) Changed: - New: antibiotics Renal: ESRD on HD Prophylaxis: H ASSESSMENT / PLAN Bacteremia: Blood cultures currently growing gram (+) cocci, awaiting speciation. ID consulted. Empirically initiated on Zosyn 2.25 g Q12h (renally dose adjusted for dialysis) and vancomycin. So far,patient has received 2 g of vancomycin at the OSH. If patient receives dialysis today, will give 1000 mg dose after dialysis and will plan to obtain a random vancomycin level prior to next dialysis session. ESRD on HD: nephrology consulted. Currently not on a set dialysis schedule inpatient. Last dialysis11/04. Patient reports stopping PhosLo, sodium bicarb, and torsemide on her own so she is currently only on a dialyvite. Phos is 5.3. Aura Park Pharm.D., R.Ph., BCPS * Cira Sanches M.D. - 11/08/2023 7:21 AM CDT [facility] Medicine 5 ([facility]) Progress Notes SUBJECTIVE Patient was seen and examined while at dialysis today with the assistance of a gallery intern.She reports that she was febrile to 100.4 deg F yesterday but has not had any fevers or chills since admission. She denies any chest pain, shortness of breath, or pain associated with her HD catheter. She has never before had an HD line infection. I have reviewed the current medication list. OBJECTIVE VITAL SIGNS Temperature: [36.5 ??C-39.5 ??C] 36.5 ??C Heart Rate: [84-115] 84 Resp Rate: [14-21] 14 Blood Pressure: (127-160)/(69-76) 127/69 SpO2: [93 %-98 %] 98 % Pulse Rate: [80-130] 80 Intake/Output Last 24 Hours: Intake/Output Summary (Last 24 hours) at 11/08/2023 0721 Last data filed at 11/07/2023 2217 Gross per 24 hour Intake 290 ml Output 200 ml Net 90 ml PHYSICAL EXAM GEN: Alert, interactive, well-nourished, no acute distress HEENT: No scleral icterus or injection. Mucous membranes moist. Vision and hearing grossly intact. CV: S1, S2 auscultated. Regular rate and rhythm. No murmurs appreciated. No peripheral edema. PULM: Good inspiratory effort. Clear to auscultation bilaterally. No crackles, wheezes, or ronchi. ABD: Soft, nontender, nondistended. SKIN: Warm, dry, intact. No rashes noted on exposed skin. No erythema or warmth surrounding tunneled HD line on R chest PSYCH: Maintains good eye contact. Mood and affect congruent. No evidence of disorganized thinking. DIAGNOSTICS I have independently reviewed labs and diagnostics for this admission. ASSESSMENT / PLAN Ms. Ramirez is hospitalized on [facility] Medicine 5 ([facility]) for evaluation and management of Sepsis withinthe setting of MSSA bacteremia secondary to HD line infection. She is clinically nontoxic today. Although HD line culture has grown MSSA, peripheral blood culture has no growth to date. Will continueto monitor this closely as well as follow up MSSA susceptibilities. Given GPC bacteremia, will involve our colleagues in both nephrology and ID for guidance on antimicrobial coverage and line holiday. #1 Chronic Failure Renal End Stage Renal Disease Dialysis Dependent (HCC) #2 Bacteremia #3 Hypertensive Chronic Kidney Disease With Stage 5 Chronic Kidney Disease Or End Stage Renal Disease (HCC) #4 Glomerulonephritis Immunoglobulin A (IgA Nephropathy) #5 Sepsis (HCC) #6 Fever Of Unknown Origin #7 Leukocytosis #8 Nodule Pulmonary --Narrow vanc/Zosyn to cefazolin, follow up blood cultures and susceptibilities --Repeat Bcx daily until bacteremia resolved --Removal of HD line, ordered; will make pt NPO at midnight in anticipation of procedure --HD today then hold during line holiday; trend renal function panel and strict I/Os daily --EMA to evaluate for endocarditis - C diff PCR, given acute diarrhea --Nephrology following, appreciate recommendations --ID consulted given MSSA bacteremia, appreciate recommendations --Hold home carvedilol given sepsis, pt normotensive today --1 g tylenol q6h PRN for fever/pain --Consider ID consult given gram positive bacteremia, query need for ECHO to r/o endocarditis --NOTE she reports only taking her carvedilol and dialyvite, denies taking phosphate binder, torsemide, bicarb --Will need outpatient workup of incidental pulmonary nodule Diet: Dialysis Tubes/lines: PIV, tunneled HD line VTE prophylaxis: heparin Current Activity/Mobility: BMAT 4 Fall Injury Prevention: discussed Disposition: home Stable to discharge criteria (not yet met): Labs, Tests/procedures/consults, and Acute care monitoring needs I personally spent a total of 50 minutes providing and coordinating care today. * Aura Park, Pharm.D., R.Ph., BCPS - 11/07/2023 7:16 PM CDT Pharmacokinetic Consult - Vancomycin Dosing Leny Ramirez is a 47 y.o. female who has received a pharmacy consult for vancomycin therapy for dose optimization and monitoring. Indication: blood stream infection Goal trough: 10-15 mcg/mL OBJECTIVE There is no height or weight on file to calculate BMI. [place] body weight: 46.6 kg Adjusted ideal body weight: 70.2 kg Relevant clinical data and objective history reviewed: Temp (24hrs), Av.5 ??C, Min:39.5 ??C, Max:39.5 ??C Leukocytes Date Value Ref Range Status 04/08/2023 6.8 3.4 - 9.6 x10(9)/L Final 03/13/2023 8.2 3.4 - 9.6 x10(9)/L Final 03/10/2023 8.2 3.4 - 9.6 x10(9)/L Final No results found for: CREATININE CrCl cannot be calculated (Patient's most recent lab result is older than the maximum 7 days allowed.). Renal Replacement Therapy: IHD No intake/output data recorded. Concurrent antimicrobials: piperacillin-tazobactam, 2.25 g, Q12H Vancomycin doses received to date: 2 g in ED on 11/06 Vancomycin levels obtained to date: Risks for vancomycin associated nephrotoxicity: Vancomycin trough goal level 15-20 mcg/mL: NO Vancomycin daily dose >/= 4 gm/day: NO Critical illness (hemodynamically unstable, on pressors): NO Increase in Scr (>/= 25%): NO Concurrent nephrotoxic medications (previous 24 hours): YES BMI >/= 40: YES ASSESSMENT / PLAN Day 1 vancomycin. Stable estimated creatinine clearance. Noted 2 risk factor(s) for vancomycin associated nephrotoxicity. Based on indication, target vancomycin level is 10-15 mcg/mL. Vancomycin trough level was not yet assessed. Will provide next vancomycin dose after next dialysis session which is TBD. Based on vancomycin associated nephrotoxicity risk factors, will monitor serum creatinine every 24 hours. Will consider obtaining surveillance vancomycin level prior to next dialysis session; next level planned for unknown date. Pharmacy will continue to follow the patient's clinical progress daily. Aura Park, Pharm.D., R.Ph., BCPS * Aura Park Pharm.D., R.Ph., BCPS - 11/07/2023 7:02 PM CDT Images from the original note were not included. Admission Medication History Note Adherence issues: Reports many missed doses per month Medication list source: Family member, Care Everywhere or chart review, and Pharmacy or dispense records Medication related information: -Patient reports she is only taking her Dialyvite and carvedilol. She stopped taking the Phos Lo, sodium bicarbonate, and torsemide on her own but we elected to leave these on her list in case they are to be resumed. Prior to Admission Medications Med List Status: Pharmacy Complete Set By: Aura Park, Pharm.D., R.Ph., BCPS at 47:02 PM Taking? Last Dose Informant Start Date End Date LT B complex-vitamin C-FA (Nephro-Wally) 0.8 mg tablet 11/06/2023 at am -- -- -- Take 1 tablet by mouth daily. calcium acetate,phosphat bind, (PHOSLO) 667 mg (169 mg calcium) capsule More than a month at not taking -- 05/13/23 -- Take 1 capsule (667 mg total) by mouth 3 (three) times a day with meals. Patient not taking: Reported on 11/07/2023 carvediloL (COREG) 12.5 mg tablet 11/06/2023 at am -- 05/06/23 05/05/24 Take 1 tablet (12.5 mg total) by mouth 2 (two) times a day with meals. clobetasoL (Temovate) 0.05 % cream Not Taking at Not taking -- 08/06/23 -- Apply 1 Application topically 2 (two) times a day. Apply to affected area in her lower extremity. Patient not taking: Reported on 11/07/2023 sodium bicarbonate 650 mg tablet Not Taking at Not taking -- 05/13/23 -- Take 2 tablets (1,300 mg total) by mouth 2 (two) times a day. Patient not taking: Reported on 11/07/2023 torsemide (DEMADEX) 20 mg tablet Not Taking at Not taking -- 05/06/23 05/05/24 Take 2 tablets (40 mg total) by mouth daily. Patient not taking: Reported on 11/07/2023 documented in this encounter H&P Notes * Haley Ding P.A.-C. - 11/07/2023 5:47 PM CDT [facility] Medicine 5 ([facility]) Admission Note SUBJECTIVE CHIEF COMPLAINT / REASON FOR VISIT Fever and bacteremia HISTORY OF PRESENT ILLNESS Leny Ramirez is a 47 y.o. female who presents with fever and bacteremia. 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 She presented to [place] ED on 11/05 after high fever noted early in the morning, up to 104. At that time, WBCs were 18 and chest x-ray w/o infiltrates. Blood cultures were drawn and resulted positive for Gram-positive cocci today, which prompted her to return to the ED in [place]. Workup during this visit noted, WBCs up to 19, lactate 2.4, CRP 18. She was noted to be febrile and tachycardic 130s. CT chest/abdomen/pelvis performed which was unremarkable besides 11 mm pulmonary nodule thatwill require outpatient follow up. She was given 2 g of vancomycin and 2.25 g of Zosyn around 1130.No fluids were given as her pressures were stable. She was transferred to [place] given her dialysis [facility]. Note that there were hard copies I read of her ED visit today, but I was unable to find anything in the chart or see the culture results for myself. She was evaluated in her room on [address] with her son present. She declined an template clerk and prefers her son to interpret. Validates history provided above. Review of systems negative for shortness of breath, chest pain, cough, dysuria, abdominal pain, new rash. She does note 1 episode of nonbloodydiarrhea today. Has a rash on her ankles has been present for months. Her biggest complaint is her fever and hot/cold flashes and currently has ice packs in groin and armpits. Meds, allergies, medical, surgical, social & family histories have been reviewed & updated as necessary. Current Outpatient Medications on File Prior to Encounter: B complex-vitamin C-FA (Nephro-Wally) 0.8 mg tablet, Take 1 tablet by mouth daily., 11/06/2023 at am carvediloL (COREG) 12.5 mg tablet, Take 1 tablet (12.5 mg total) by mouth 2 (two) times a day with meals., 11/06/2023 at am calcium acetate,phosphat bind, (PHOSLO) 667 mg (169 mg calcium) capsule, Take 1 capsule (667 mg total) by mouth 3 (three) times a day with meals. (Patient not taking: Reported on 11/07/2023), More than a month at not taking clobetasoL (Temovate) 0.05 % cream, Apply 1 Application topically 2 (two) times a day. Apply to affected area in her lower extremity. (Patient not taking: Reported on 11/07/2023), Not Taking at Not taking sodium bicarbonate 650 mg tablet, Take 2 tablets (1,300 mg total) by mouth 2 (two) times a day. (Patient not taking: Reported on 11/07/2023), Not Taking at Not taking torsemide (DEMADEX) 20 mg tablet, Take 2 tablets (40 mg total) by mouth daily. (Patient not taking:Reported on 11/07/2023), Not Taking at Not taking [DISCONTINUED] amLODIPine (NORVASC) 10 mg tablet, 10 mg daily. [DISCONTINUED] loperamide (IMODIUM A-D) 2 mg tablet, Take 2 tabs now then one tab after each waterystool. OBJECTIVE VITAL SIGNS Temperature: [39.5 ??C] 39.5 ??C Resp Rate: [18-19] 19 Blood Pressure: (127-160)/(69-76) 127/69 SpO2: [97 %-98 %] 97 % Pulse Rate: [122-130] 130 PHYSICAL EXAMINATION General: Alert, ill-appearing, in no acute distress, appears stated age. Skin: Warm, dry, well-perfused with no new rash or lesion. Scabbed rash to left ankle for months. HD line to right upper chest, without erythema or purulence. HEENT: Normocephalic and atraumatic. PERRL, anicteric sclerae, EOMs intact. Moist mucous membranes,no lesions. Heart: Regular rhythm, tachycardic, S1/S2, no murmurs. No JVD. Lungs: Clear to auscultation bilaterally. Regular and non-labored respirations on room air. Able tospeak in full sentences. Abdomen: Soft, non-tender, non-distended. Positive bowel sounds. No palpable organomegaly. Extremities: Normal peripheral pulses and capillary refill. No lower extremity edema. Neuro/Psych: Alert and oriented x 4, responding appropriately to questions. Mood and affect congruent. CAM negative for delirium. Cranial nerves 2-12 grossly intact without obvious focal sensorimotordeficits. DIAGNOSTICS I have independently reviewed the labs and diagnostics ASSESSMENT / PLAN Ms. 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 Unfortunately, we do not have outside records available in Care everywhere or culture data, but I was able to review paper copies of today's ED visit. She denies any other localizing symptoms of infection, making HD line infection a likely source. She was a leukocytosis to 15.5 and thankfully her lactate has decreased from 2.5 to 1 without need forany fluids as her pressures have been stable. She received vanc/Zosyn at 11:30 a.m. at OSH. She continues to be tachycardic (sinus) and febrile. CT C/A/P negative for infectious process at OSH. UA and urine culture obtained here and pending. Peripheral and line cultures were redrawn here (note thiswas after first round of antibiotics at OSH). We will wait for source to declare itself and continue broad-spectrum antibiotics in the meantime. We will also consult our Nephrology colleagues for dialysis management and consideration of line holiday pending culture results She dialyzes at [facility]. Catheter was exchanged 10/09/2023 in IR due to malfunctioning line. Her last dialysis session was on Friday. #1 Chronic Failure Renal End Stage Renal Disease Dialysis Dependent (HCC) #2 Bacteremia #3 Hypertensive Chronic Kidney Disease With Stage 5 Chronic Kidney Disease Or End Stage Renal Disease (HCC) #4 Glomerulonephritis Immunoglobulin A (IgA Nephropathy) #5 Sepsis (HCC) #6 Fever Of Unknown Origin #7 Leukocytosis #8 Nodule Pulmonary --Continue vancomycin/zosyn, pharmacy to dose given dialysis status --Blood (peripheral and line) and urine cultures pending --Hold fluids at this time given dialysis status and stable pressures --Hold home carvedilol given sepsis, restart as able --1 g tylenol q6h PRN for fever/pain --Nephrology consult, anticipate need for line holiday following dialysis (missed Friday) --Consider ID consult given gram positive bacteremia, query need for ECHO to r/o endocarditis --NOTE she reports only taking her carvedilol and dialyvite, denies taking phosphate binder, torsemide, bicarb --Will need outpatient workup of incidental pulmonary nodule DIET: Adult Diet Regular; Renal (Dialysis) TUBES/LINES: PIV and HD line VTE PROPHYLAXIS: heparin CODE STATUS: Full Code BASELINE MOBILITY: BMAT Level 4 (Able to stand and walk) DISPOSITION: Home The above plan of care was discussed with Dr. Mejia, HIM oracle scm consultant. I personally spent a total of 75 minutes providing and coordinating care today. documented in this encounter Consult Notes * Jaime Guevara M.D. - 11/08/2023 10:57 AM CDT Infectious Diseases [facility] Consulting Service Consult Note SUBJECTIVE REASON FOR CONSULT We are seeing Ms. Ramirez at the request of López Cabrales M.D.,* to give further recommendations for evaluation and management of sepsis and gram positive bacteremia 2/2 HD line infection. HISTORY OF PRESENT ILLNESS Leny Ramirez is a 47 y.o. F with medical comorbidities notable for HTN, prediabetes, and ESRD 2/2IgA nephropathy on iHD MWF since 04/2023 who presented in the setting of fevers and gram positive bacteremia. She initially presented to an OSH ED on 11/05 after having a fever up to 104 F in the AM. In the ED,she had a leukocytosis to 18 and CXR without acute findings. Blood cultures were drawn and resultedpositive for Gram-positive cocci on 11/06, which prompted her to return to the ED in [place]. On return to the ED, she had a leukocytosis to 19, lactate 2.4, CRP 18. She was initially febrile tachyc ardiac in the 130s. CT C/A/P was unremarkable other than incidental 11 mm pulmonary nodule. She wasstarted on Vancomycin and Zosyn without fluids given she was hemodynamically stable and she was transferred to [place] for further workup and management. On admission, she was febrile to 39.5 C, tachycardiac, but HDS on RA. Her last dialysis was on 11/04. Her catheter was last exchanged on 10/09/2023. Repeat Bcx from the HD catheter on 11/06 are growing MSSA. UA without concerns for UTI. She denied any focal infectious symptoms other than an episode ofdiarrhea. She had some chills and cold sweats. On evaluation today, she notes her fevers are improved. She now notes 4 episodes of diarrhea since admission. She denies having any hardware. Her leukocytosis is downtrending to 15.8 today. Nephrology is taking her to dialysis this morning in anticipation of a line holiday. OBJECTIVE PHYSICAL EXAMINATION Vital Signs: I have reviewed the current vital sign data as applicable. Physical Exam Gen: Well appearing, well-nourished, in NAD. Lungs: Clear to auscultation bilaterally; no cough; breathing non-labored. CV: Regular rate and rhythm. No murmurs, rubs or gallops. R tunneled catheter capped without surrounding erythema, purulence, drainage. Abd: Soft, non-tender, non-distended; no organomegaly; normoactive bowel sounds. Extremities: Warm and dry. No edema. PSYCH: Mood and affect congruent. NEURO: No focal deficits. DIAGNOSTICS I have reviewed diagnostics. ASSESSMENT / PLAN # Bacteremia with MSSA likely 2/2 TDC associated bloodstream infection # ESRD on iHD MWF # HTN Leny Ramirez is a 47 y.o. 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 Her blood cultures on 11/06 from the TDC resulted positive at 11 hours for MSSA, likely the source of her bacteremia given no other focal infectious symptoms other than diarrhea. She has been started on Vancomycin and Zosyn, which can be deescalated to Cefazolin. However, given MSSA bacteremia, she should have her line removed either today or tomorrow with plan for line holiday for minimum 48 hours after repeat blood cultures are negative, which should be obtained after catheter removal and thendaily. Discussed this plan with neph who will attempt to fluid restrict in the interim. Would additionally obtain EMA to rule out endocarditis and C.diff panel given her diarrhea. Duration of antibiotic therapy to be determined by findings on EMA and time it takes for repeat blood cultures to remain negative. RECOMMENDATIONS: Discontinue Vancomycin and Zosyn. Start Cefazolin 1 g every 24 hours. On Dialysis days, please doseafter HD. Please remove TDC either today or tomorrow. If it cannot happen today, then okay to do HD prior to removal tomorrow if deemed necessary by nephrology Once line is removed, repeat blood cultures daily to determine timing of line replacement Obtain EMA to rule out endocarditis Obtain C.diff testing given diarrhea Treatment plan reviewed with Ms. Ramirez, who expressed understanding. All questions answered to patient's satisfaction. We will follow along closely. Please page the [facility] service pager at [phone] with questions. Thank you for the consultation. Jaime Guevara M.D. * Lurdes Peters M.B.B.S. - 11/08/2023 10:52 AM CDTAssociated Order(s): IP CONSULT TO INFECTIOUS DISEASES This is a supervisory note I saw and evaluated the patient, participating in the lechuga portions of the service. I agree with theresident/fellow???s findings and plan.Please see the attached note for details of findings and plan. Likely hemodialysis catheter associated MSSA bloodstream infection End-stage renal disease on hemodialysis Friday since May 07, 2023 IgA nephropathy Hypertension We are consulted to see Miss Leny Ramirez for MSSA BSI. She initially presented to [place] ED 2 days ago on 11/05 for workup of high fever. Blood cultures were drawn and she was dismissed at that time. Blood cultures later grew DPC is now identified as MSSA which prompted this admission. She was started on vancomycin and cefepime pending additional workup and identification of blood cultures. This morning she reports improvement in fever. She also had diarrhea with 4 nonbloody loose bowel movements in the last 24 hours. She has not had any abdominal pain or any other new symptoms. No pain around are hemodialysis catheter. She had it initially placed prior to hemodialysis in April and was last exchanged a month ago. She has had no pain, redness around the catheter site or in the tunnel and no issues with the catheter during dialysis as well. She had blood cultures done which later grew GPCs now identified as MSSA. Likely source is hemodialysis catheter since so far we have seen growth only from the hemodialysis catheter and not from peripheral blood. I do not have blood culture results from [facility] yet. Plan Given that isolate has been now identified as MSSA, would ask to switch to cefazolin monotherapy. Dosing for her would be 1 g Q 24 hours. On dialysis days give dose after hemodialysis Given that organism is MSSA and likely sources catheter, would ask for catheter removal. Nephrologyteam is planning to do dialysis today and possibly tomorrow before removing the catheter and givingher line holiday prior to reimplantation. Would ask to repeat blood cultures after line removal so we can determine the timing of reimplantation. Given the community acquired bloodstream infection and catheter being the source, I would favor obtaining a EMA in this case. It is not urgent however. She does not have any underlying prosthetic heart valves or CIED Would also ask to get C difficile PCR for diarrhea We will continue to follow along. * Teressa Garza, MAGY, C.N.P., M.S.N. - 11/08/2023 6:47 AM CDTAssociated Order(s): Nephrology consult (hospital) NEPHROLOGY CONSULT SERVICE - CONSULT NOTE Hospital Day 1 Nephrology consult (hospital) Referring Provider: Haley Ding P.A.-C. Reason for Consult: ESRD SUBJECTIVE CHIEF COMPLAINT Bacteremia HISTORY OF PRESENT ILLNESS Ms. Ramirez is a 47 y.o. female who presents to outside hospital with fever and bacteremia. Per chart review, [place] ED blood cultures returned positive for Gram positive cocci and her urine grew Klebsiella. She was given 2 g of vancomycin and 2.25 g of Zosyn in [place] ED. She was transferred to [facility]. Her past medical history includes but is not limited to: Hypertension, prediabetes and ESRD relatedto IgA nephropathy. [facility]. She typically dialyzes at [facility] on a Friday, Friday, Friday hemodialysis schedule. She has a right tunneled catheter which was recently exchanged here at [place] on 10/09/2023. Ms. Ramirez was seen and examined hospital room this morning. Her son was present at bedside during my visit and assisted with translation. Ms. Ramirez notes her last hemodialysis was 11/05/2023, at [facility]. She reports dialysis Friday went well and she had no symptoms. Shereports she typically tolerates dialysis well. She notes her right tunneled dialysis catheter has functioned well since exchanging on 10/09/2023. She continues to make daily urine output. She does nottypically have edema between dialysis sessions. Today, Ms. Ramirez reports feeling her fever/chills have subsided. She continues to feel fatigued.She reports continued diarrhea with multiple episodes overnight. She denies dyspnea, chest pain, nausea or emesis. She denies feeling edematous. I discussed we will plan hemodialysis later this morning. I further discussed infectious disease team will be involved with her care and assist in determining if her tunneled dialysis catheter will require being removed for a couple days (line holiday). She notes understanding and denies questions for nephrology. I have reviewed and updated the following: allergies, current medications, and medical history OBJECTIVE Admission weight: 107 kg Weights for the past 120 hrs (Last 3 readings): Weight 11/07/23 1754 107 kg VITAL SIGNS Temperature: [36.5 ??C-39.5 ??C] 36.5 ??C Heart Rate: [84-115] 84 Resp Rate: [14-21] 14 Blood Pressure: (127-160)/(69-76) 127/69 SpO2: [93 %-98 %] 98 % Pulse Rate: [80-130] 80 PHYSICAL EXAMINATION General: Awake and alert, sitting in bed, appears in no acute distress Heart: Regular rate and rhythm Lungs: Lung sounds clear to auscultation bilateral anterior lung noble, nonlabored breathing, continues on room air Extremities: No pitting edema bilateral lower extremities Vessels: Right tunneled catheter, capped. No drainage or erythema present at catheter exit site. Nontender to palpation. DIAGNOSTICS Recent Labs 11/08/23 0009 11/07/23 1831 HGB 10.0 L 10.7 L WBC 15.8 H 15.5 H PLT 101 L 110 L Recent Labs 11/08/23 0009 11/07/23 1831 04/08/23 1239 03/13/23 1312 03/10/23 1457 NA 132 L 130 L 139 < > 141 KPLASMA -- -- -- -- 5.3 H KSERUM 4.0 4.5 5.0 < > -- BUN 71 H 64 H 71 H < > 64 H CREATININE 8.12 H 7.56 H 4.41 H < > 4.70 H < > = values in this interval not displayed. Results from last 7 days Lab Units 11/08/23 0009 11/07/23 1831 CALCIUM mg/dL 7.8* 7.7* ALBUMIN g/dL 3.3* 3.6 3.6 PHOSPHORUS INORGANIC mg/dL 5.3* 3.8 No results for input(s): CYSTATINC, EGFRCYSTATNC in the last 2190 hours. 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 Ramirez will dialyze today for 3.5 hours on a 3.0 mEq/L potassium, 3.0 mEq/L calcium, 140 sodium, 35 bicarb dialysate bath with a net fluid removal goal of 1-2 L as tolerated. Post dialysis heparin locks will be instilled into dialysis catheter. Appreciate ID consult and assistance with antibiotic regimen as well as need for line holiday. Hemodialysis catheter blood cultures from 11/07/2023 is growing gram positive coccus resembling staphylococcus. If line holiday is required, would like to dialyze prior to line removal; followed with dailyrenal function panel and placing patient on renal dialysis diet with 1 L/day fluid restriction. Line holiday typically for 48 hours of negative cultures prior to tunneled catheter replacement. As part of required hemodialysis monitoring, we will recheck Hepatitis B panel today with hemodialysis; as outpatient records are not available. Addendum @ 0900: Ms. Ramirez was seen during hemodialysis this morning. She is dialyzing in bed. Her predialysis weight today was 106.6 kg. We will attempt 2 L fluid removal, keeping SBP>100. She is tolerating dialysis with a blood pressure 114/74 (86) during my visit. Her dialysis catheter is functioning with a BFR 350 mL/min. iPad gallery intern (Jo Zacarias # [id number]). Per dialysis nursing staff, Ms. Ramirez's son originally accompanied her to hemodialysis. He received a phone call and was talking on the phone out on dialysis unit loudly. He was asked to step out of the unit to take phone calland became aggressive, flipping nursing staff off and verbally swearing at staff. He left the unit,on his own. Security arrived to dialysis unit in discussed details with nursing staff. I discussed this situation with Ms. Ramirez. Recommendations: -- Consult ID for assistance with antibiotic regimen and line holiday -- Check C-diff due to continued diarrhaea -- Repeat blood cultures today -- Hemodialysis today -- Hepatitis B panel (nephrology already ordered) -- Renal function panel with am labs Standard Recommendations -- Document strict intake and output -- Renal dialysis diet with 1.5 L/day fluid restriction -- Renally dose-adjust all medications for hemodialysis -- Dialyvite 1 tab oral daily -- Sodium bicarb 1300 mg b.i.d. -- Calcium acetate 667 mg 3 times daily with meals for phosphorus binding. If at any time she is NPO please hold this medication. -- Post dialysis heparin locks, nephrology will manage and order this medication Dismissal Planning: -- Please keep nephrology up to date on dismissal planning to ensure outpatient hemodialysis is arranged appropriately prior to hospital dismissal. Ms. Ramirez's case has been staffed with Dr. Mcnally, Nephrology [facility] consultant. For questions or concerns, please contact the Nephrology B service at [phone]. Associated attestation - Blake Mcnally M.D. - 11/08/2023 1:13 PM CDT I met with STUDENT RECORDS COORDINATOR Teressa Garza and discussed and reviewed the patient's status. She has end-stage kidney disease due to IgA nephropathy. [facility]23. Recently her hemodialysis catheter was exchanged. She is now hospitalized for fever and bacteremia.She probably has a dialysis catheter associated infection. She underwent dialysis today. Later her dialysis catheter will be removed. We will monitor her status. documented in this encounter Nursing Notes * Christine Quiroga R.N. - 11/09/2023 4:25 AM CDT Shift Goals: Clinical Goals for the Shift: VSS. IV ABX. Identify possible barriers to meeting goals/advancing plan of care: comorbidities Problem: PAIN - ADULT Goal: PT VERBALIZES/DEMONSTRATES ADEQUATE COMFORT LEVEL OR BASELINE Outcome: Progressing Problem: KNOWLEDGE DEFICIT Goal: Patient/family/caregiver demonstrates understanding of disease process, treatment plan, medications, and discharge instructions Outcome: Progressing Problem: INFECTION - ADULT Goal: Absence of infection during hospitalization Outcome: Progressing Problem: SKIN/TISSUE INTEGRITY Goal: Skin/Tissue integrity maintained or improved Outcome: Progressing Goal: Oral and Nasal mucous membranes remain intact Outcome: Progressing Problem: SAFETY ADULT Goal: Maintain a safe environment Outcome: Progressing Problem: DISCHARGE PLANNING Goal: Patient discharge needs identified Outcome: Progressing Problem: SAFETY ADULT - RISK FOR FALL AND OR FALL INJURY Goal: Patient remains free from fall/fall injury Outcome: Progressing End of Shift Summary: A&OX3, using call light to make needs known. VSS. ORA. PRN tylenol X 1 for c/o headache with good effect stated by patient. Ambulating independently in room, balance and gait steady. Stool sample negative for C- diff. Modified contact precautions removed. Plan for HD catheter removal today. documented in this encounter Miscellaneous Notes * Hospital Course - Cira Sanches M.D. - 11/07/2023 8:47 PM CDT Leny Ramirez is a 47 y.o. female who presents with fever and bacteremia. 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 She presented to [place] ED on 11/05 after high fever noted early in the morning, up to 104. At that time, WBCs were 18 and chest x-ray w/o infiltrates. Blood cultures were drawn and resulted positive for Gram-positive cocci today, which prompted her to return to the ED in [place]. Workup during this visit noted, WBCs up to 19, lactate 2.4, CRP 18. She was noted to be febrile and tachycardic 130s. CT chest/abdomen/pelvis performed which was unremarkable besides 11 mm pulmonary nodule thatwill require outpatient follow up. She was given 2 g of vancomycin and 2.25 g of Zosyn around 1130.No fluids were given as her pressures were stable. She was transferred to [place] given her dialysis [facility]. Upon arrival at [facility], she remained hemodynamically stable. Blood cultures drawn from her HD line were positive for MSSA, thus antibiotics were narrowed to cefazolin. ID was consulted and recommended removal of her HD line (done ) and EMA to evaluate for endocarditis (done ). Daily blood cultures were monitored until clear. Hemodialysis line was replaced on . documented in this encounter Plan of Treatment Upcoming Encounters Date Type Department Care Team (Latest Contact Info) Description 11/27/2023 8:30 AM CDT Appointment Department of Radiology, [facility], in [place], [place] [address] [place] [address] Jo Root M.D., Ph.D. [address] [place] [address] Discharge Disposition: Home or Self Care 11/27/2023 10:30 AM CDT Nurse Only Division of Nephrology and Hypertension in [place], [place] [address] [place] [address] oJ Root M.D., Ph.D. [address] [place] [address] 11/27/2023 1:00 PM CDT Comprehensive Visit Division of Vascular and Endovascular Surgery in [place], [place] [address] [place] [address] Jo Root M.D., Ph.D. [address] [place] [address] Pending Results Name Type Priority Associated Diagnoses Date /Time Bacteria / Pascale Culture, Blood #1 Microbiology STAT 11/07/2023 6:3 1 PM CDT Bacteria / Pascale Culture, Blood #2 Microbiology STAT 11/07/2023 6:3 8 PM CDT Bacteria / Pascale Culture, Blood (repeat draw) Microbiology Routine 11/08/2023 7:39 PM CDT Bacteria / Pascale Culture, Blood (repeat draw) Microbiology Routine 11/08/2023 7:47 PM CDT Scheduled Orders Name Type Priority Associated Diagnoses Order Schedule HBs Antibody Scrn, Serum Microbiology Routine Routine lab collection (next collection) for 1 Occurrences starting 11/08/2023 until 11/08/2023 HBs Antigen Scrn, Serum Microbiology Routine Routine lab collection (next collection) for 1 Occurrences starting 11/08/2023 until 11/08/2023 Echo Transesophageal (EMA) Echocardiography Routine Once for 1 Occurrences starting 11/08/2023 until 11/08/2023 Bacteria / Pascale Culture, Blood (repeat draw) Microbiology Routine Routine lab collection (next collection) for 1 Occurrences starting 11/08/2023 until 11/08/2023 Bacteria / Pascale Culture, Blood (repeat draw) Microbiology Routine Routine lab collection (next collection) for 1 Occurrences starting 11/08/2023 until 11/08/2023 IR Dialysis / High Flow Catheter Removal Imaging RAD - Routine (most inpatients and all outpatients) Once for 1 Occurrences starting 11/08/2023 until 11/08/2023 Renal Function Panel Lab Routine Rout ine lab collection (next collection) for 1 Occurrences starting 11/09/2023 until 11/09/2023 documented as of this encounter Procedures The patient is currently admitted. The [...] DIFFERENTIAL, B Routine 11/08/2023 12:09 AM CDT DIPSTICK, U Routine 11/07/2023 7:34 PM CDT MICROSCOPIC MANUAL Routine 11/07/2023 7: 34 PM CDT BACTERIAL CULTURE, AEROBIC + SUSC, URINE Routine 11/07/2023 7:34 PM CDT PH, U Routine 11/07/2023 7:34 PM CDT OSMOLALITY, U Routine 11/07/2023 7:34 PM CDT URINALYSIS WITH MICROSCOPIC Routine 11/07/2023 7:34 PM CDT ECG Routine 11/07/2023 6:50 PM CDT BACTERIA / PASCALE CULTURE, BLOOD STAT 11/07/2023 6:38 PM CDT LACTATE FOR SEPSIS WITH REFLEX STAT 11/07/2023 6:31 PM CDT RENAL FUNCTION PANEL, S STAT 11/07/2023 6:31 PM CDT HEPATIC FUNCTION PANEL, S STAT 11/07/2023 6:31 PM CDT BACTERIA / PASCALE CULTURE, BLOOD STAT 11/07/2023 6:31 PM CDT CBC WITH DIFFERENTIAL, B STAT 11/07/2023 6:31 PM CDT documented in this encounter Results * (ABNORMAL) CBC with Differential, Blood (11/09/2023 7:37 AM CDT) [facility] Hemoglobin 10.6(L) 11.6 - 15.0 g/dL 11/09/2023 [...] M.D. LAB BLOOD ADD-ON Performing Organization Address City/[facility]/ZIP Co de Phone Number [facility] [address] [place] [address], [facility] [address] [place] [address] [facility] [address] [place] [address] * Clostridioides (Clostridium) Difficile Toxin, Molecular Detection, PCR, Feces (11/09/2023 2:10 AM CDT) C. difficile Toxin, F Negative Negative 11/09/2023 3:31 AM CDT DTL Stool (Stool) 11/09/2023 2:1 0 AM CDT 11/09/2023 2:39 AM CDT Cira Sanches M.D. LAB MICROBIOLOGY - GENERAL ORDERABLES Performing Organization Address [facility] Co de Phone Number [facility] [address] [place] [address], [facility] [address] [place] [address] * (ABNORMAL) Renal Function Panel (11/08/2023 12:09 AM CDT) Potassium, S 4.0 3.6 - 5.2 mmol/L [...] Haley Ding P.A.-C. LAB BLOOD ADD-O N [address] [address], [facility] [address] [place] [address] * (ABNORMAL) CBC without Differential (11/08/2023 12:09 [...] LAB BLOOD ADD-O N Performing Organization Address City/[facility]/ZIP Co de Phone Number [address] [address], [facility] DTL [address] [address] * (ABNORMAL) Microscopic Manual (11/07/2023 7:34 PM [...] Haley Ding P.A.-C. LAB URINE ORDER ZORAN [facility] [address] [place] [address], [facility] [address] [place] [address] * (ABNORMAL) Dipstick, Urine (11/07/2023 7:34 PM [...] Haley Ding P.A.-C. LAB URINE ORDER ZORAN [facility] [address] [place] [address], [facility] [address] [place] [address] * pH, Urine (11/07/2023 7:34 PM CDT) pH, U 4.8 4.5 - 8.0 11/07/2023 8:3 9 PM CDT DTL Urine 11/07/2023 7:34 PM CDT 11/07/2023 8:02 PM CDT Haley GalvinCJanie LAB URINE ORDER ZORAN [facility] [address] [place] [address], [facility] [address] [place] [address] * Osmolality, Urine (11/07/2023 7:34 PM CDT) Pathologist [facility] Osmolality, U 277 150 - 1150 mOsm/kg 11/07/2023 8:39 PM CDT DTL Urine 11/07/2023 7:34 PM CDT 11/07/2023 8:02 PM CDT Haley Ding P.A.-C. LAB URINE ORDER ZORAN Performing Organization Address [facility] Co de Phone Number [facility] [address] [place] [address] * Bacterial Culture, Aerobic + Susceptibility, Urine (11/07/2023 7:34 PM CDT) [facility] Urine Culture No growth after 1 day of incubation. 11/09/2023 6:31 AM CDT DT Urine (Urine, Midstream) 11/07/2023 7:34 PM CDT 11/07/2023 8:12 PM CDT Comment:Specimen Source Site : Urine Haley Ding P.A.-C. LAB MICROBIOLOG Y - GENERAL ORDERABLES Performing Organization Address [facility] Co de Phone Number [facility] [address] [place], [place] [address] [place] [address] [address] [place] [address] * (ABNORMAL) Urinalysis, with Microscopic: Urine, Midstream (11/07/2023 7:34 PM CDT) [facility] Source Urine, Urine, Midstream 11/07/2023 8:02 [...] LAB URINE ORDER ZORAN Performing Organization Address [facility] Co de Phone Number [facility] [address] [place] [address], [facility] DTL [facility] [address] [place] [address] * ECG 12 Lead (11/07/2023 6:50 PM CDT) Ventricular Rate ECG/Min 126 BPM MUSE MI Interval 134 ms MUSE QRSD Interval 90 ms MUSE QT Interval 318 ms MUSE QTC Interval 460 ms MUSE P [place] 42 degrees MUSE R [place] 38 degrees MUSE T Wave [place] 22 degrees MUSE 11/07/2023 6:50 PM CDT [...] Ding P.A.-C. ECG ORDERABLES Performing Organization Address [facility] de Phone Number MUSE NA * (ABNORMAL) Hepatic Function Panel (11/07/2023 6:31 [...] Haley Ding P.A.-C. LAB BLOOD ADD-O N [place] [address] [place] [address], [facility] [address] [address] * (ABNORMAL) Renal Function Panel (11/07/2023 6:31 PM CDT) Pathologist [facility] Potassium, S 4.5 3.6 - 5.2 mmol/L 11/07/2023 7:56 PM CDT DTL Sodium, S 130(L) 135 - 145 mmol/L 11/07/2023 7:56 PM CDT DTL Chloride, S 95(L) 98 - 107 mmol/L 11/07/2023 7:56 PM CDT DTL Bicarbonate, S 15(L) 22 - 29 mmol/L 11/07/2023 7:56 PM CDT DTL Anion Gap 20(H) 7 - 15 11/07/2023 7:56 PM CDT DTL BUN (Blood Urea Nitrogen), S 64(H) 6 - 21 mg/dL 11/07/2023 7:56 PM CDT DTL Creatinine 7.56(H) 0.59 - 1.04 mg/dL 11/07/2023 7:56 PM CDT DTL Estimated GFR (eGFR) <15(L) >=60 mL/min/BSA 11/07/2023 7:56 PM CDT DTL Comment: Estimated GFR calculated using the 2020 CKD_EPI creatinine equation. Calcium, Total, S 7.7(L) 8.6 - 10.0 mg/dL 11/07/2023 7:56 PM CDT DTL Glucose, S 103 70 - 140 mg/dL 11/07/2023 7:56 PM CDT DTL Albumin, S 3.6 3.5 - 5.0 g/dL 11/07/2023 7:56 PM CDT DTL Phosphorus (Inorganic), S 3.8 2.5 - 4.5 mg/dL 11/07/2023 7:56 PM CDT DTL Blood (Blood, Venous) 11/07/2023 6:31 PM CDT 11/07/2023 7:36 PM CDT Haley Ding P.A.-C. LAB BLOOD ADD-O N Performing Organization Address City/[facility]/ZIP Co de Phone Number [facility] [address] [place] [address], [facility] DTL [facility] [address] [place] [address] * Lactate for Sepsis with Reflex (11/07/2023 6:31 PM CDT) Lactate, P 1.0 0.5 - 2.2 mmol/L 11/07/2023 6:51 PM CDT STMA Blood (Blood, Venous) 11/07/2023 6:31 PM CDT 11/07/2023 6:37 PM CDT Haley GalvinCJanie LAB BLOOD NON A DD-ON Performing Organization Address City/[facility]/ZIP Co de Phone Number [facility] [address] [place] [address], [facility] STMA [address] [address] * (ABNORMAL) CBC with Differential, Blood (11/07/2023 6:31 PM CDT) [facility] Hemoglobin 10.7(L) 11.6 - 15.0 g/dL 11/07/2023 6:41 PM CDT STMA Hematocrit 31.1(L) 35.5 - 44.9 % 11/07/2023 6:41 PM CDT [facility] Erythrocytes 3.29(L) 3.92 - 5.13 x10(12)/L 11/07/2023 6:41 PM CDT [facility] MCV 94.5 78.2 - 97.9 fL 11/07/2023 6:41 PM CDT [facility] RBC Distrib Width 15.2 12.2 - 16.1 % 11/07/2023 6:41 PM CDT [facility] Platelet Count 110(L) 157 - 371 x10(9)/L 11/07/2023 8:06 PM CDT [facility] Comment:Results confirmed by smear, no clumping or interference seen. Leukocytes 15.5(H) 3.4 - 9.6 x10(9)/L 11/07/2023 8:06 PM CDT [facility] Neutrophils 14.63(H) 1.56 - 6.45 x10(9)/L 11/07/2023 6:41 PM CDT DHPM Lymphocytes 0.30(L) 0.95 - 3.07 x10(9)/L 11/07/2023 6:41 PM CDT [facility] Monocytes 0.52 0.26 - 0.81 x10(9)/L 11/07/2023 6:41 PM CDT [facility] Eosinophils 0.03 0.03 - 0.48 x10(9)/L 11/07/2023 6:41 PM CDT [facility] Basophils <0.03 0.01 - 0.08 x10(9)/L 11/07/2023 6:41 PM CDT [facility] Blood (Blood, Venous) 11/07/2023 6:31 PM CDT 11/07/2023 6:37 PM CDT Haley Ding P.A.-C. LAB BLOOD ADD-O N [facility] [address] [place] [address], [place] STMA [facility] [address] [place] [address] [facility] [address] [place] [address] documented in this encounter Visit Diagnoses Diagnosis Bacteremia- Primary Chronic Failure Renal End Stage Renal Disease Dialysis Dependent (HCC) Chronic Failure Renal End Stage Renal Disease Dialysis Dependent (HCC) Hypertensive Chronic Kidney Disease With Stage 5 Chronic Kidney Disease Or End Stage Renal Disease (HCC) Glomerulonephritis Immunoglobulin A (IgA Nephropathy) Sepsis (HCC) Fever Of Unknown Origin Leukocytosis Nodule Pulmonary documented in this encounter Admitting Diagnoses Diagnosis Bacteremia documented in this encounter Administered Medications Active Administered Medications - up to 3 most recent administrations Medication Order MAR Action Action Date Dose Rate Site acetaminophen tablet 1,000 mg (TylenoL) 1,000 mg, oral, Every 6 hours PRN, fever, moderate pain or score 4-6 of 10, severe pain or score 7-10 of 10, Starting on Fri11/07/23 at 1840 Given 11/08/2023 11:07 PM CDT 1,000 mg Given 11/08/2023 12:49 PM CDT 1,000 mg Given 11/08/2023 6:39 AM CDT 1,000 mg ceFAZolin injection 1 g (Ancef) 1 g, intravenous, Every 24 hours, First dose (after last reorder) on 11/08/23 at 1400, Please give after dialysis on dialysis days For immediate IV push administration, reconstitute vial per IVAG or package insert instructions. See IVAG for administration guidelines., Drug Monitoring Program: Pharmacist to adjust medication dosing based on indication and drug clearance factors., Indications: Blood stream infection Given 11/08/2023 4:00 PM CDT 1 g multivitamin renal failure 100-1 mg 1 tablet (Dialyvite) 1 tablet, oral, Daily with evening meal, First dose on 11/08/23 at 1700, give after dialysis on dialysis days Given 11/08/2023 5:37 PM CDT 1 tablet Inactive Administered Medications - up to 3 most recent administrations Medication Order MAR Action Action Date Dose Rate Site heparin (porcine) 1,000 unit/mL injection 3,000 Units 3,000 Units (3 mL), intra-catheter, As needed, to lock dialysis catheter after access., Starting on 11/08/23 at 0843, Dialysis, Dwell in dialysis catheter after dialysis. Dwell to length of catheter. Given 11/08/2023 12:24 PM CDT 1,900 Units heparin (porcine) 1,000 unit/mL injection 3,000 Units 3,000 Units (3 mL), intra-catheter, As needed, to lock dialysis catheter after access., Starting on 11/08/23 at 0843, Dialysis, Dwell in dialysis catheter after dialysis. Dwell to length of catheter. Given 11/08/2023 12:25 PM CDT 1,900 Units heparin (porcine) injection 5,000 Units 5,000 Units, subcutaneous, Every 8 hours scheduled, First dose on Fri11/07/23 at 2200 Given 11/08/2023 6:16 AM CDT 5,000 Units Right Lower Abdomen Given 11/07/2023 10:18 PM CDT 5,000 Units Right Lower Abdomen piperacillin-tazobactam in dextrose (iso osm) IVPB 2.25 g (Zosyn) 2.25 g, intravenous, at 100 mL/hr, Administer over 0.5 Hours, Every 12 hours, First dose on Fri11/07/23 at 2300, Drug Monitoring Program: Pharmacist to adjust medication dosing based on indication and drug clearance factors., Indications: Blood stream infection New Bag 11/07/2023 10:17 PM CDT 2.25 g 100 mL/hr sodium chloride 0.9 % flush 1-250 mL 1-250 mL, intravenous, As needed, line care, For priming and rinse back post dialysis, Starting on 11/08/23 at 0843, Dialysis, Dialysis order only. Given 11/08/2023 8:54 AM CDT 250 mL sodium chloride 0.9 % injection 10-60 mL 10-60 mL, intravenous, As needed, line care, To maintain line patency, Starting on 11/08/23 at 0843, Dialysis Given 11/08/2023 8:54 AM CDT 36 mL documented in this encounter Active and Recently Administered Medications Times are shown in CDT. Scheduled Medication Order 11/07/2023 11/08/2023 11/09/2023 carvediloL tablet 12.5 mg (Coreg) 12.5 mg, oral, 2 times daily with meals, First dose on Fri11/08/23 at 0800, On hold since Fri11/07/2023 at 1839 until manually unheld 1838 (Held by provider - Provider: Haley Ding P.A.-C. - Comment: pending pressures) 0800 (Not Given - Provider: Emilia Powell R.N. - Reason: Patient/family refused)1700 (Not Given - Provider: Emilia Powell R.N. - Reason: See Provider Order) 0800 (Not Given - Provider: Emilia Powell R.N. - Reason: See Provider Order)1700 (Dose Auto Held) ceFAZolin injection 1 g (Ancef) 1 g, intravenous, Every 24 hours, First dose (after last reorder) on 11/08/23 at 1400, Please give after dialysis on dialysis days For immediate IV push administration, reconstitute vial per IVAG or package insert instructions. See IVAG for administration guidelines., Drug Monitoring Program: Pharmacist to adjust medication dosing based on indication and drug clearance factors., Indications: Blood stream infection 1600 (Given - Provider: Emilia Powell R.N.) 1400 (Due) heparin (porcine) injection 5,000 Units (CANCELED) 5,000 Units, subcutaneous, Every 8 hours scheduled, First dose on Fri11/07/23 at 2200 2218 (Given - Provider: Christine Quiroga R.N.) 0616 (Given - Provider: Christine Quiroga R.N.) multivitamin renal failure 100-1 mg 1 tablet (Dialyvite) 1 tablet, oral, Daily with evening meal, First dose on Fri11/08/23 at 1700, give after dialysis on dialysis days 1737 (Given - Provider: Emilia Powell R.N.) 1700 (Due) piperacillin-tazobactam in dextrose (iso osm) IVPB 2.25 g (Zosyn) (CANCELED) 2.25 g, intravenous, at 100 mL/hr, Administer over 0.5 Hours, Every 12 hours, First dose on Fri11/07/23 at 2300, Drug Monitoring Program: Pharmacist to adjust medication dosing based on indication and drug clearance factors., Indications: Blood stream infection 2217 (New Bag - Provider: Christine Quiroga R.N.) PRN Medication Order 11/07/2023 11/08/2023 11/09/2023 acetaminophen tablet 1,000 mg (TylenoL) 1,000 mg, oral, Every 6 hours PRN, fever, moderate pain or score 4-6 of 10, severe pain or score 7-10 of 10, Starting on Fri11/07/23 at 1840 1929 (Given - Provider: Jona Lobo RJanieN.) 0639 (Given - Provider: Christine Quiroga R.N.)1249 (Given - Provider: Swati AraizaNJanie)2307 (Given - Provider: Christine Quiroga R.N.) heparin (porcine) 1,000 unit/mL injection 3,000 Units (CANCELED) 3,000 Units (3 mL), intra-catheter, As needed, to lock dialysis catheter after access., Starting on 11/08/23 at 0843, Dialysis, Dwell in dialysis catheter after dialysis. Dwell to length of catheter. 1224 (Given - Provider: Kelli Lopez RJanieNJanie) heparin (porcine) 1,000 unit/mL injection 3,000 Units (CANCELED) 3,000 Units (3 mL), intra-catheter, As needed, to lock dialysis catheter after access., Starting on 11/08/23 at 0843, Dialysis, Dwell in dialysis catheter after dialysis. Dwell to length of catheter. 1225 (Given - Provider: Kelli Lopez RJanieNJanie) polyethylene glycol powder packet 17 g (Miralax) 17 g, oral, Daily PRN, constipation, Starting on Fri11/07/23 at 1839, Ordered sequence of administration: polyethylene glycol, then bisacodyl until BM achieved. Avoid mixing with starch-based thickened liquids. sodium chloride 0.9 % flush 1-250 mL (CANCELED) 1-250 mL, intravenous, As needed, line care, For priming and rinse back post dialysis, Starting on 11/08/23 at 0843, Dialysis, Dialysis order only. 0854 (Given - Provider: Kelli Lopez R.N.) sodium chloride 0.9 % injection 10-60 mL (CANCELED) 10-60 mL, intravenous, As needed, line care, To maintain line patency, Starting on 11/08/23 at 0843, Dialysis 0854 (Given - Provider: Kelli Lopez R.N.) documented in this encounter Care Teams Knowledge Management Advisor Relationship Specialty Start Date End Date None Reported, Pcp PCP - General Family Medicine 03/10/23 documented as of this encounter
--- OUTSIDE RECORDS SUMMARY | 2023-11-09 08:24 | XMS_ITS | Clinical Summary ---
Author Organization Media Address [address] [place] [address] Care Team Providers Care Manufacturing Engineering Director Name Role Phone No Ref-Primary, Physician Primary [...] age to complete this topic Care Teams Manufacturing Engineering Director Relationship Specialty Start Date End Date No Ref-Primary, Physician PCP - General 05/25/21
--- OUTSIDE RECORDS SUMMARY | 2023-11-09 08:25 | XMS_ITS | Encounter Summary ---
Author Organization [facility] Address [address] [place] [address] Care Team Providers Care Middle School Professional Name Role Phone None Reported, Pcp Primary Care Provider Unavail able Encounter Details Date Type Department Care Team ([facility] st Contact Info) Description 08/04/2023 Clinical Communication Division of Nephrology and Hypertension in [place], [place] [address] [place] [phone] Jo Root M.D., Ph.D. [address] [place] [address] Social History Tobacco Use Types Packs/Day Years Used Date Smoking Tobacco: Never Smokeless Tobacco: Never Alcohol Use Standard Drinks/Week Comments Never 0 (1 standard drink = 0.6 oz pur e alcohol) [facility] Utilities Answer Date Recorded In the past 12 months has e [employer], gas, oil, or water [email or web address] threatened to shut off services in your [...] your living situation today? I have a [facility] place to live 03/13/2023 Sex and Gender Information Value Date Recorded Sex Assigned at Female 03/13/2023 1:38 PM FLOOR COVERING INSTALLER Gender Identity Female 03/13/2023 1:42 PM FLOOR COVERING INSTALLER Sexual Orientation Straight 03/13/2023 1: 42 PM FLOOR COVERING INSTALLER documented as of this encounter Miscellaneous Notes * Telephone Encounter - Jo Root M.D., Ph.D. - 08/04/2023 10:40 AM CDT Patient has been evaluated during dialysis at [facility]. She presents a pruritic rash, [...] CDT Appointment Department of Radiology, [facility], in [place], [place] [address] [place] [address] Jo Root M.D., Ph.D. [address] [place] [address] Discharge Disposition: Home or Self Care 11/27/2023 10:30 AM CDT Nurse Only Division of Nephrology and Hypertension in [place], [place] [address] [place] [address] Jo Root M.D., Ph.D. [address] [place] [phone] 11/27/2023 1:00 PM CDT Comprehensive Visit Division of Vascular and Endovascular Surgery in [place], [place] [address] [place] [address] Jo Root M.D., Ph.D. [address] [place] [phone] documented as of this encounter Visit Diagnoses Not on filedocumented in this encounter Care Teams Middle School Professional Relationship Specialty Start Date End Date None Reported, Pcp PCP - General Family Medicine 03/10/23 documented as of this encounter
--- OUTSIDE RECORDS SUMMARY | 2023-11-09 08:25 | XMS_ITS | Encounter Summary ---
Author Organization [facility] Address [address] [place] [address] Care Team Providers Care Plate Glass Grinder Name Role Phone None Reported, Pcp Primary Care Provider Unavail able Reason for Visit * Reason Comments NEDRA (acute kidney injury) Encounter Details Date Type Department Care Team ([facility] st Contact Info) Description 10/17/2023 Documentation Division of Nephrology and Hypertension, [facility], in [place], [place] [address] [place] [phone] Melly Goldstein R.N. [address] [place] [phone] NEDRA (acute kidney injury) Social History Tobacco Use Types Packs/Day Years Used Date Smoking Tobacco: Never Smokeless Tobacco: Never Alcohol Use Standard Drinks/Week Comments Never 0 (1 standard drink = 0.6 oz pur e alcohol) [facility] Utilities Answer Date Recorded In the past 12 months has e [facility], gas, oil, or water [employer] threatened to shut off services in your [...] your living situation today? I have a [facility] place [facility] live 03/13/2023 Sex and Gender Information Value Date Recorded Sex Assigned at Female 03/13/2023 1:38 PM SUPERVISOR RIDES Gender Identity Female 03/13/2023 1:42 PM SUPERVISOR RIDES Sexual Orientation Straight 03/13/2023 1: 42 PM SUPERVISOR RIDES documented as of this encounter Progress Notes * Melly Goldstein R.N. - 10/17/2023 9:41 AM CDT Encounter created in error documented in this encounter Plan of Treatment Upcoming Encounters Date Type Department Care Team (Latest Contact Info) Description 11/27/2023 8:30 AM CDT Appointment Department of Radiology, [facility], in [place], [place] [address] [place] [address] Jo Root M.D., Ph.D. [address] [place] [address] Discharge Disposition: Home or Self Care 11/27/2023 10:30 AM CDT Nurse Only Division of Nephrology and Hypertension in [place], [place] [address] [place] [address] Jo Root M.D., Ph.D. [address] [place] [address] 11/27/2023 1:00 PM CDT Comprehensive Visit Division of Vascular and Endovascular Surgery in [place], [place] [address] [place] [address] Jo Root M.D., Ph.D. [address] [place] [address] documented as of this encounter Visit Diagnoses Not on filedocumented in this encounter Care Teams Plate Glass Grinder Relationship Specialty Start Date End Date None Reported, Pcp PCP - General Family Medicine 03/10/23 documented as of this encounter
--- OUTSIDE RECORDS SUMMARY | 2023-11-09 08:25 | XMS_ITS ---
Author Organization [facility] Address [address] [place] [address] Care Team Providers Care Mechanical Design Engineer Facilities Name Role Phone None Reported, Pcp Primary Care Provider Unavail able Transplant Episode Kidney Candidate [facility] ([place], [place]) - [facility] [place] Referred on 09/10/2023 Marked as Active on 09/10/2023 Kidney CoordinatorVandana Lauren R.N., C.C.T.C. Phone: N/A Fax: N/A Email: N/A Scores Score Value Updated Exceptions/Reas ons CPRA Not available EPTS (Calc) 14 11/09/2023 Care Team Name Role Phone Fax Email Vandana Lauren R.N., C.C.T.C. Kidney Coordinator N/A N/A N/A Jo Berg M.D., Ph.D. Referring Provider [phone] [email or web address] Pre-Transplant Referred: 09/10/2023 Dialysis History Dialysis History Start End Type [facility] Information Center Phone Fax Address [facility] [phone] [place] [address]
--- OUTSIDE RECORDS SUMMARY | 2023-11-09 08:25 | XMS_ITS | Encounter Summary ---
Author Organization [facility] Address [address] [place] [address] Care Team Providers Care Shoulder Sawyer Name Role Phone None Reported, Pcp Primary Care Provider Unavail able Encounter Details Date Type Department Care Team ([facility] st Contact Info) Description 08/04/2023 Orders Only Division of Nephrology and Hypertension, [facility], in [place], [place] [address] [place] [phone] Nicholas Tracey, MAGY, C.N.P., M.S.N. [address] [place] [phone] Social History Tobacco Use Types Packs/Day Years Used Date Smoking Tobacco: Never Smokeless Tobacco: Never Alcohol Use Standard Drinks/Week Comments Never 0 (1 standard drink = 0.6 oz pur e alcohol) [facility] Utilities Answer Date Recorded In the past 12 months has [employer], gas, oil, or water [employer] threatened to shut off services in your [...] your living situation today? I have a [facility] place to live 03/13/2023 Sex and Gender Information Value Date Recorded Sex Assigned at Female 03/13/2023 1:38 PM TRANSISTOR TESTER Gender Identity Female 03/13/2023 1:42 PM TRANSISTOR TESTER Sexual Orientation Straight 03/13/2023 1: 42 PM TRANSISTOR TESTER documented as of this encounter Plan of Treatment Upcoming Encounters Date Type Department Care Team (Latest Contact Info) Description 11/27/2023 8:30 AM CDT Appointment Department of Radiology, [facility], in [place], [place] [address] [place] [phone] Jo Root M.D., Ph.D. [address] [place] [phone] Discharge Disposition: Home or Self Care 11/27/2023 10:30 AM CDT Nurse Only Division of Nephrology and Hypertension in [place], [place] [address] [place] [address] Jo Root M.D., Ph.D. [address] [place] [phone] 11/27/2023 1:00 PM CDT Comprehensive Visit Division of Vascular and Endovascular Surgery in [place], [place] [address] [place] [address] Jo Root M.D., Ph.D. [address] [place] [address] documented as of this encounter Visit Diagnoses Not on filedocumented in this encounter Care Teams Shoulder Sawyer Relationship Specialty Start Date End Date None Reported, Pcp PCP - General Family Medicine 03/10/23 documented as of this encounter
--- OUTSIDE RECORDS SUMMARY | 2023-11-09 08:25 | XMS_ITS | Encounter Summary ---
Author Organization [facility] Address [address] [place] [address] Care Team Providers Care Loan Funder Name Role Phone None Reported, Pcp Primary Care Provider Unavail able Encounter Details Date Type Department Care Team ([facility] st Contact Info) Description 09/19/2023 Episode Changes Division of Nephrology and Hypertension in [place], [place] [address] [place] [phone] Jo Root M.D., Ph.D. [address] [place] [address] Social History Tobacco Use Types Packs/Day Years Used Date Smoking Tobacco: Never Smokeless Tobacco: Never Alcohol Use Standard Drinks/Week Comments Never 0 (1 standard drink = 0.6 oz pur e alcohol) [facility] Utilities Answer Date Recorded In the past 12 months has e [employer], gas, oil, or water [employer] threatened to shut off services in your [...] your living situation today? I have a [facility] place to live 03/13/2023 Sex and Gender Information Value Date Recorded Sex Assigned at Female 03/13/2023 1:38 PM 8TH GRADE TEACHER Gender Identity Female 03/13/2023 1:42 PM 8TH GRADE TEACHER Sexual Orientation Straight 03/13/2023 1: 42 PM 8TH GRADE TEACHER documented as of this encounter Plan of Treatment Upcoming Encounters Date Type Department Care Team (Latest Contact Info) Description 11/27/2023 8:30 AM CDT Appointment Department of Radiology, [facility], in [place], [place] [address] [place] [address] Jo Root M.D., Ph.D. [address] [place] [phone] Discharge Disposition: Home or Self Care 11/27/2023 10:30 AM CDT Nurse Only Division of Nephrology and Hypertension in [place], [place] [address] [place] [address] Jo Root M.D., Ph.D. [address] [place] [phone] 11/27/2023 1:00 PM CDT Comprehensive Visit Division of Vascular and Endovascular Surgery in [place], [place] [address] [place] [address] Jo Root M.D., Ph.D. [address] [place] [phone] documented as of this encounter Visit Diagnoses Not on filedocumented in this encounter Care Teams Loan Funder Relationship Specialty Start Date End Date None Reported, Pcp PCP - General Family Medicine 03/10/23 documented as of this encounter
--- OUTSIDE RECORDS SUMMARY | 2023-11-09 08:25 | XMS_ITS | Encounter Summary ---
Author Organization [facility] Address [address] [place] [address] Care Team Providers Care Epic Manager Name Role Phone None Reported, Pcp Primary Care Provider Unavail able Encounter Details Date Type Department Care Team (Late st Contact Info) Description 09/24/2023 Episode Changes Transplant Center in [place], [place] [address] [place] [address] Shonda Florence Social History Tobacco Use Types Packs/Day Years Used Date Smoking Tobacco: Never Smokeless Tobacco: Never Alcohol Use Standard Drinks/Week Comments Never 0 (1 standard drink = 0.6 oz pur e alcohol) [facility] Utilities Answer Date Recorded In the past 12 months has e [employer], gas, oil, or water [employer] threatened to shut off services in your [...] your living situation today? I have a [facility] place to live 03/13/2023 Sex and Gender Information Value Date Recorded Sex Assigned at Female 03/13/2023 1:38 PM HYDRO MECHANIC Gender Identity Female 03/13/2023 1:42 PM HYDRO MECHANIC Sexual Orientation Straight 03/13/2023 1: 42 PM HYDRO MECHANIC documented as of this encounter Plan of Treatment Upcoming Encounters Date Type Department Care Team (Latest Contact Info) Description 11/27/2023 8:30 AM CDT Appointment Department of Radiology, [facility] in [place], [place] [address] [place] [address] Jo Root M.D., Ph.D. [address] [place] [phone] Discharge Disposition: Home or Self Care 11/27/2023 10:30 AM CDT Nurse Only Division of Nephrology and Hypertension in [place], [place] [address] [place] [phone] Jo Root M.D., Ph.D. [address] [place] [phone] 11/27/2023 1:00 PM CDT Comprehensive Visit Division of Vascular and Endovascular Surgery in [place], [place] [address] [place] [phone] Jo Root M.D., Ph.D. [address] [place] [phone] documented as of this encounter Visit Diagnoses Not on filedocumented in this encounter Care Teams Epic Manager Relationship Specialty Start Date End Date None Reported, Pcp PCP - General Family Medicine 03/10/23 documented as of this encounter
--- OUTSIDE RECORDS SUMMARY | 2023-11-09 08:25 | XMS_ITS | Encounter Summary ---
Author Organization [facility] Address [address] [place] [address] Care Team Providers Care Fish Rod Maker Name Role Phone None Reported, Pcp Primary Care Provider Unavail able Reason for Referral * Transplant (Routine) - Authorized Specialty Diagnoses / Procedures Referred By Crow t Referred To Contact Transplant Diagnoses Chronic Kidney Disease Stage 5 GFR Less Than 15 Dialysis Dependent (HCC) Jo Root M.D., Ph.D. [address] [place] [phone] [facility] Referral ID Status Reason Start Date Expiration Date V isits Requested Visits Authorized [id number] Authorized 08/01/2023 01/30/2025 1 1 * Outpatient (Routine) - Authorized Specialty Diagnoses / Procedures Referred By Contac t Referred To Contact Diagnoses Chronic Kidney Disease Stage 5 GFR Less Than 15 Dialysis Dependent (HCC) Procedures US Upper Extremity Bilateral Dialysis Mapping Jo Root M.D., Ph.D. [address] [place] [phone] [facility] Referral ID Status Reason Start Date Expiration Date V isits Requested Visits Authorized [id number] Authorized 08/01/2023 07/31/2024 1 1 * Outpatient (Routine) - Authorized Specialty Diagnoses / Procedures Referred By Contac t Referred To Contact Nephrology and Hypertension / Dialysis Diagnoses Chronic Kidney Disease Stage 5 GFR Less Than 15 Dialysis Dependent (HCC) Jo Root M.D., Ph.D. [address] [place] [phone] [facility] Referral ID Status Reason Start Date Expiration Date V isits Requested Visits Authorized [id number] Authorized 08/01/2023 01/30/2025 1 1 * Outpatient (Routine) - Authorized Specialty Diagnoses / Procedures Referred By Contac t Referred To Contact Nephrology and Hypertension Jo Root M.D., Ph.D. [address] [place] [phone] [facility] Referral ID Status Reason Start Date Expiration Date V isits Requested Visits Authorized [id number] Authorized 08/01/2023 01/30/2025 1 1 Encounter Details Date Type Department Care Team (Late st Contact Info) Description 08/01/2023 Orders Only Division of Nephrology and Hypertension in [place], [place] [address] [place] [phone] Jo Root M.D., Ph.D. [address] [place] [phone] Chronic Kidney Disease Stage 5 GFR Less Than 15 Dialysis Dependent (HCC) (Primary Dx) Social History Tobacco Use Types Packs/Day Years Used Date Smoking Tobacco: Never Smokeless Tobacco: Never Alcohol Use Standard Drinks/Week Comments Never 0 (1 standard drink = 0.6 oz pur e alcohol) [facility] Utilities Answer Date Recorded In the past 12 months has e [facility], gas, oil, or water [employer] threatened to shut off services in [...] your living situation today? I have a [facility] place to live 03/13/2023 Sex and Gender Information Value Date Recorded Sex Assigned at Female 03/13/2023 1:38 PM SETTER MOLDING AND COREMAKING MACHINES Gender Identity Female 03/13/2023 1:42 PM SETTER MOLDING AND COREMAKING MACHINES Sexual Orientation Straight 03/13/2023 1: 42 PM SETTER MOLDING AND COREMAKING MACHINES documented as of this encounter Plan of Treatment Upcoming Encounters Date Type Department Care Team (Latest Contact Info) Description 11/27/2023 8:30 AM CDT Appointment Department of Radiology, [facility], in [place], [place] [address] [place] [address] Jo Root M.D., Ph.D. [address] [place] [address] Discharge Disposition: Home or Self Care 11/27/2023 10:30 AM CDT Nurse Only Division of Nephrology and Hypertension in [place], [place] [address] [place] [address] Jo Root M.D., Ph.D. 200 [place] [address] 11/27/2023 1:00 PM CDT Comprehensive Visit Division of Vascular and Endovascular Surgery in [place], [place] [address] [place] [address] Jo Root M.D., Ph.D. 200 [place] [phone] Scheduled Orders Name Type Priority Associated Diagnoses [...] Primary documented in this encounter Care Teams Fish Rod Maker Relationship Specialty Start Date End Date None Reported, Pcp PCP - General Family Medicine 03/10/23 documented as of this encounter
--- OUTSIDE RECORDS SUMMARY | 2023-11-09 08:25 | XMS_ITS | Encounter Summary ---
Author Organization [facility] Address [address] [place] [address] Care Team Providers Care Paraffin Machine Operator Name Role Phone None Reported, Pcp Primary Care Provider Unavail able Encounter Details Date Type Department Care Team (Late st Contact Info) Description 08/06/2023 Orders Only Division of Nephrology and Hypertension, [facility], in [place], [place] [address] [place] [phone] Nicholas Tracey, MAGY, C.N.P., M.S.N. [address] [place] [phone] Trigger Finger Middle Right (Primary Dx) Social History Tobacco Use Types Packs/Day Years Used Date Smoking Tobacco: Never Smokeless Tobacco: Never Alcohol Use Standard Drinks/Week Comments Never 0 (1 standard drink = 0.6 oz pur e alcohol) [facility] Utilities Answer Date Recorded In the past 12 months has [facility] [employer], gas, oil, or water [employer] threatened to shut off services in your [...] Sex Assigned at Female 03/13/2023 1:38 PM SHOE COBBLER Gender Identity Female 03/13/2023 1:42 PM SHOE COBBLER Sexual Orientation Straight 03/13/2023 1: 42 PM SHOE COBBLER documented as of this encounter Plan of Treatment Upcoming Encounters Date Type Department Care Team (Latest Contact Info) Description 11/27/2023 8:30 AM CDT Appointment Department of Radiology, [facility], in [place], [place] [address] [place] [address] Jo Root M.D., Ph.D. [address] [place] [phone] Discharge Disposition: Home or Self Care 11/27/2023 10:30 AM CDT Nurse Only Division of Nephrology and Hypertension in [place], [place] [address] [place] [phone] Jo Root M.D., Ph.D. [address] [place] [phone] 11/27/2023 1:00 PM CDT Comprehensive Visit Division of Vascular and Endovascular Surgery in [place], [place] [address] [place] [phone] Jo Root M.D., Ph.D. [address] [place] [phone] documented as of this encounter Visit Diagnoses Diagnosis Trigger Finger Middle Right- Primary documented in this encounter Care Teams Paraffin Machine Operator Relationship Specialty Start Date End Date None Reported, Pcp PCP - General Family Medicine 03/10/23 documented as of this encounter
--- OUTSIDE RECORDS SUMMARY | 2023-11-09 08:25 | XMS_ITS | Encounter Summary ---
Author Organization [facility] Address [address] [place] [address] Care Team Providers Care Fish Cake Maker Name Role Phone None Reported, Pcp Primary Care Provider Unavail able Reason for Referral * Specialty Diagnoses / Procedures Referred By Crow olivo Referred To Contact Yin Garcia APRN, C.N.P., D.N.P. [address] [place] [phone] [facility] Referral ID Status Reason Start Date Expiration Date Visits Re quested Visits Authorized * Outpatient (Routine) - Closed Specialty Diagnoses / Procedures Referred By Crow olivo Referred To Contact Radiology Diagnoses Hemodialysis Status (HCC) Procedures IR Dialysis / High Flow Catheter Exchange Yin Garcia APRN, C.N.P., D.N.P. [address] [place] [phone] [facility] Referral ID Status Reason Start Date Expiration Date Visits Re quested Visits Authorized [id number] Closed 10/08/2023 10/07/2024 1 1 Encounter Details Date Type Department Care Team (Late st Contact Info) Description 10/08/2023 Orders Only Division of Nephrology and Hypertension in [place], [place] 200 [place] [address] Yin Garcia APRN, C.N.P., D.N.P. [address] [place] [address] Hemodialysis Status (HCC) (Primary Dx) Social History Tobacco Use Types Packs/Day Years Used Date Smoking Tobacco: Never Smokeless Tobacco: Never Alcohol Use Standard Drinks/Week Comments Never 0 (1 standard drink = 0.6 oz pur e alcohol) [facility] Utilities Answer Date Recorded In the [...] your living situation today? I have a [facility] place to live 03/13/2023 Sex and Gender Information Value Date Recorded Sex Assigned at Female 03/13/2023 1:38 PM LARGE ANIMAL HUSBANDRY TECHNICIAN Gender Identity Female 03/13/2023 1:42 PM LARGE ANIMAL HUSBANDRY TECHNICIAN Sexual Orientation Straight 03/13/2023 1: 42 PM LARGE ANIMAL HUSBANDRY TECHNICIAN documented as of this encounter Plan of Treatment Upcoming Encounters Date Type Department Care Team (Latest Contact Info) Description 11/27/2023 8:30 AM CDT Appointment Department of Radiology, [facility], in [place], [place] [address] [place] [phone] Jo Root M.D., Ph.D. [address] [place] [phone] Discharge Disposition: Home or Self Care 11/27/2023 10:30 AM CDT Nurse Only Division of Nephrology and Hypertension in [place], [place] [address] [place] [phone] Jo Root M.D., Ph.D. [address] [place] [phone] 11/27/2023 1:00 PM CDT Comprehensive Visit Division of Vascular and Endovascular Surgery in [place], [place] [address] [place] [phone] Jo Root M.D., Ph.D. [address] [place] [phone] Scheduled Referrals Name Type Priority Associated Diagnoses [...] catheter were prepped and draped sterilely. A brown stock washer view showed the tip of the catheter [...] obtained from the patient via in person art director.. Immediately prior to starting the procedure, in [...] dialysis catheter were prepped anddraped sterilely. A brown stock washer view showed the tip of the catheter [...] consent obtained from thepatient via in person art director.. Immediately prior tostarting the procedure, in the [...] Garcia APRN, C.N.P., D.N.P. IMG IR PROCEDURES documented in this encounter Visit Diagnoses Diagnosis Hemodialysis Status (HCC)- Primary Hemodialysis Status (HCC) documented in this encounter Care Teams Fish Cake Maker Relationship Specialty Start Date End Date None Reported, Pcp PCP - General Family Medicine 03/10/23 documented as of this encounter
--- OUTSIDE RECORDS SUMMARY | 2023-11-09 08:25 | XMS_ITS | Encounter Summary ---
Author Organization [facility] Address [address] [place] [address] Care Team Providers Care Glass Vial Bending Conveyor Feeder Name Role Phone None Reported, Pcp Primary Care Provider Unavail able Encounter Details Date Type Department Care Team ([facility] st Contact Info) Description 10/08/2023 Documentation Division of Nephrology and Hypertension in [place], [place] [address] [place] [address] Rosanna Serrato, RJanieN. [address] [place] [address] Social History Tobacco Use Types Packs/Day Years Used Date Smoking Tobacco: Never Smokeless Tobacco: Never Alcohol Use Standard Drinks/Week Comments Never 0 (1 standard drink = 0.6 oz pur e alcohol) [facility] Utilities Answer Date Recorded In the past 12 months has th e [employer], gas, oil, or water [employer] threatened to shut off services in your [...] your living situation today? I have a [facility] place to live 03/13/2023 Sex and Gender Information Value Date Recorded Sex Assigned at Female 03/13/2023 1:38 PM SPREADING MACHINE OPERATOR Gender Identity Female 03/13/2023 1:42 PM SPREADING MACHINE OPERATOR Sexual Orientation Straight 03/13/2023 1: 42 PM SPREADING MACHINE OPERATOR documented as of this encounter Progress Notes * Rosanna Serrato RJanieN. - 10/08/2023 3:33 PM CDT Patient scheduled for a dialysis tunneled catheter exchange for tomorrow, 10/09/23.[facility], anibal Davison MD. She is to be fasting after midnight, and come witha show horse driver. Patient is diet controlled diabetic. She is not on any anticoagulation. Patient will dialyze at [facility] post catheter replacement. Her normal dialysis days are //. She had some dialysis yesterday. All discussion with the patient via the kick press setter # [id number]. documented in this encounter Plan of Treatment Upcoming Encounters Date Type Department Care Team (Latest Contact Info) Description 11/27/2023 8:30 AM CDT Appointment Department of Radiology, [facility], in [place], [place] [address] [place] [phone] Jo Root M.D., Ph.D. [address] [place] [address] Discharge Disposition: Home or Self Care 11/27/2023 10:30 AM CDT Nurse Only Division of Nephrology and Hypertension in [place], [place] [address] [place] [address] Jo Root M.D., Ph.D. [address] [place] [phone] 11/27/2023 1:00 PM CDT Comprehensive Visit Division of Vascular and Endovascular Surgery in [place], [place] [address] [place] [address] Jo Root M.D., Ph.D. [address] [place] [phone] documented as of this encounter Visit Diagnoses Not on filedocumented in this encounter Care Teams Glass Vial Bending Conveyor Feeder Relationship Specialty Start Date End Date None Reported, Pcp PCP - General Family Medicine 03/10/23 documented as of this encounter
--- OUTSIDE RECORDS SUMMARY | 2023-11-09 08:25 | XMS_ITS | Clinical Summary ---
Author Organization [facility] Address [place], [place] [address] Care Team Providers Care Card Seller Name Role Phone Mayuri Corcoran MD Primary [...] Routine 07/29/2018 8:31 AM CDT Lipid screening PROFESSOR OF SPECIAL EDUCATION THIN PREP PAP SCREEN IMAGED Routine 07/29/2018 8:05 AM CDT Screening for malignant neoplasm of cervix XR MAMMO BILAT SCREENING Routine 03/07/2016 10:12 AM PETROLEUM TERMINAL PLANT OPERATOR Visit for screening mammogram from Last 3 Months or Most Recently Relevant to Health Maintenance Results * (ABNORMAL) LIPID PANEL W REFLEX MEASURED LDL [[id number]] (07/29/2018 8:31 AM CDT) CHOLESTEROL,TOTAL 172 100 - 199 mg/dL 07/29/2018 1:47 PM CDT [facility] TRIGLYCERIDES 172(H) <150 mg/dL 07/29/2018 1:47 PM CDT [facility] HDL CHOLESTEROL 34(L) >40 mg/dL 9 1:47 PM CDT [facility] NON-HDL CHOLESTEROL 138 <145 mg/dl 07/29/2018 1:47 PM CDT [facility] CHOL/HDL RATIO 5.06(H) <4.50 07/29/2018 1:47 PM CDT [facility] LDL CHOLESTEROL 104 <=130 mg/dL 07/29/2018 1:47 PM CDT [facility] PROVIDER ORDERED STATUS RANDOM 07/29/2018 1:47 PM CDT [facility] Blood BLOOD SPECIMEN / Unknown Butterfly / Unknown 07/29/2018 8:31 AM CDT 07/29/2018 8:31 AM CDT Mayuri Corcoran MD CHEMISTRY [facility] [address] [place] [address], [place] * PROFESSOR OF SPECIAL EDUCATION THIN PREP PAP SCREEN IMAGED [[id number]] (07/29/2018 8:05 AM CDT) Case Report Gynecologic Cytology Report ? Case: [id number] ? Authorizing Provider: ??Mayuri Corcoran MD ? Collected: ? 07/29/2018 0805 ? Ordering Location: ? [facility] ?? Received: ?07/29/2018 0831 ? Clinic ? First Screen: ?Jasen Paula ? Pathologist: ? Molina Arias Jr., ? MD ? Specimen: ?PROFESSOR OF SPECIAL EDUCATION ThinPrep Vial Screening, Cervical ? 08/05/2018 6:40 AM CDT [facility] INTERPRETATION/ RESULT NEGATIVE FOR INTRAEPITHELIAL LESION OR MALIGNANCY (NIL) (none) 08/05/2018 6:40 AM CDT [facility] [employer] [facility] IMEN ADEQUACY Satisfactory for evaluation Endocervical component present 08/05/2018 6:40 AM CDT [facility] [employer] [facility] HPV REQUEST HPV and PAP 08/05/2018 6:40 AM CDT [facility] Date of LMP 07/11/2018 08/05/2018 6:40 AM CDT [facility] [employer] [facility] Last Pap Date 10/02/11 08/05/2018 6:40 AM CDT [facility] [employer] [facility] Last Pap Result NIL 9 6:40 AM CDT [facility] [employer] [facility]AL [facility] Abnormal Pap or Phoenix Bx in last 5 years No 08/05/2018 6:40 AM CDT [facility] EN[facility]AL LAB[facility] Menstrual Status Regular Periods 08/05/2018 6:40 AM CDT [facility]-C ENTRAL LABORATORY [place] Bx Done Today No 08/05/2018 6:40 AM CDT [facility] [employer] [facility] Additional Information None given 08/05/2018 6:40 AM CDT [facility] [employer] [facility] ENTRAL LAB[facility]ATORY Automated Review Successful 08/05/2018 6:40 AM CDT [facility] [employer] [facility] ENTRAL LABORATORY Comment:Specimen processed s uccessfully by automated prepress manager device, ThinPrep Imaging System, [employer] ANCILLARY TESTING PROFESSOR OF SPECIAL EDUCATION HPV Ordered, Please see separate report 08/05/2018 6:40 AM CDT [facility] [employer] [facility] Note The pap test is [...] lesions. Cytology is screened and interpreted at [facility], Central Laboratory - [address], [place] [address] and [facility] - [address]; [place] [address] and [facility] - [address]; [place] [address] and [facility] [address]; [place] [address] 08/05/2018 6:40 AM CDT [facility] ENTRAL LABORATORY Other (Cervical) Non-Blood / Unknown 07/29/2018 8:05 AM CDT 07/29/2018 8:31 AM CDT Mayuri Corcoran MD PATHOLOGY/CYTOLOGY [facility] [address] [place] [address], [place] * XR MAMMO BILAT SCREENING (03/07/2016 10:12 AM PETROLEUM TERMINAL PLANT OPERATOR) Anatomical Region Laterality Modality BREASTS, Breast Left, Breast Right Bilateral Mammography Impressions 03/07/2016 12:39 PM PETROLEUM TERMINAL PLANT OPERATOR ??There is no radiographic evidence for malignancy. ??Recommend annual mammograms. A lay language report of this examination will be provided to the patient. MAMMOGRAM ASSESSMENT: ??ACR 2 Benign Narrative 03/07/2016 12:39 PM PETROLEUM TERMINAL PLANT OPERATOR XR MAMMO BILAT SCREENING [[id number]] CLINICAL HISTORY: ??This is an asymptomatic 40 [...] Recently Relevant to Health Maintenance Care Teams Card Seller Relationship Specialty Start Date End Date Mayuri Corcoran MD [address] [place] [address] PCP - General Family Practice 09/15/18
--- OUTSIDE RECORDS SUMMARY | 2023-11-09 08:25 | XMS_ITS | Encounter Summary ---
Author Organization [facility] Address [address] [place] [address] Care Team Providers Care Interface Analyst Name Role Phone None Reported, Pcp Primary Care Provider Unavail able Reason for Referral * Outpatient (Routine) - Authorized Specialty Diagnoses / Procedures Referred By Crow olivo Referred To Contact Dermatology Diagnoses Jo Holder M.D., Ph.D. [address] [place] [phone] [facility] Referral ID Status Reason Start Date Expiration Date Visits Requested Visits Authorized [id number] Authorized Specialty Services Required 08/04/2023 02/02/2025 1 1 Encounter Details Date Type Department Care Team (Late st Contact Info) Description 08/04/2023 Orders Only Division of Nephrology and Hypertension in [place], [place] [address] [place] [phone] Jo Root M.D., Ph.D. [address] [place] [phone] Alexandre (Primary Dx) Social History Tobacco Use Types Packs/Day Years Used Date Smoking Tobacco: Never Smokeless Tobacco: Never Alcohol Use Standard Drinks/Week Comments Never 0 (1 standard drink = 0.6 oz pur e alcohol) [facility] Utilities Answer Date Recorded In [...] your living situation today? I have a [facility] place to live 03/13/2023 Sex and Gender Information Value Date Recorded Sex Assigned at Female 03/13/2023 1:38 PM PRE FABRICATOR Gender Identity Female 03/13/2023 1:42 PM PRE FABRICATOR Sexual Orientation Straight 03/13/2023 1: 42 PM PRE FABRICATOR documented as of this encounter Plan of Treatment Upcoming Encounters Date Type Department Care Team (Latest Contact Info) Description 11/27/2023 8:30 AM CDT Appointment Department of Radiology, [facility], in [place], [place] 200 [place] [address] Jo Root M.D., Ph.D. 200 [place] [address] Discharge Disposition: Home or Self Care 11/27/2023 10:30 AM CDT Nurse Only Division of Nephrology and Hypertension in [place], [place] [address] [place] [address] Jo Root M.D., Ph.D. [address] [place] [phone] 11/27/2023 1:00 PM CDT Comprehensive Visit Division of Vascular and Endovascular Surgery in [place], [place] [address] [place] [address] Jo Root M.D., Ph.D. [address] [place] [phone] Scheduled Referrals Name Type Priority Associated Diagnoses Order Schedule Dermatology - General consult (clinic) Outpatient Referral Routine Rash Expected: 08/04/2023, Expires: 11/03/2024 documented as of this encounter Visit Diagnoses Diagnosis Rash- Primary documented in this encounter Care Teams Interface Analyst Relationship Specialty Start Date End Date None Reported, Pcp PCP - General Family Medicine 03/10/23 documented as of this encounter
--- OUTSIDE RECORDS SUMMARY | 2023-11-09 08:25 | XMS_ITS | Encounter Summary ---
Author Organization [facility] Address [address] [place] [address] Care Team Providers Care Counter Stacker Name Role Phone None Reported, Pcp Primary Care Provider Unavail able Encounter Details Date Type Department Care Team ([facility] st Contact Info) Description 11/07/2023 Clinical Communication Division of Nephrology and Hypertension in [place], [place] [address] [place] [phone] Jo Root M.D., Ph.D. [address] [place] [address] Social History Tobacco Use Types Packs/Day Years Used Date Smoking Tobacco: Never Smokeless Tobacco: Never Alcohol Use Standard Drinks/Week Comments Never 0 (1 standard drink = 0.6 oz pur e alcohol) [facility] Utilities Answer Date Recorded In the past 12 months has e [employer], gas, oil, or water [employer] threatened to shut off services in [...] living situation today? I have a [facility] place to live 11/07/2023 Sex and Gender Information Value Date Recorded Sex Assigned at Female 03/13/2023 1:38 PM FRONT OFFICE SPECIALIST Gender Identity Female 03/13/2023 1:42 PM FRONT OFFICE SPECIALIST Sexual Orientation Straight 03/13/2023 1: 42 PM FRONT OFFICE SPECIALIST documented as of this encounter Miscellaneous Notes * Telephone Encounter - Jo Root M.D., Ph.D. - 11/07/2023 9:33 AM CDT I have contacted patient this morning. She is a hemodialysis patient at [facility] on a Friday schedule via hemodialysis catheter, last exchanged on 10/09/2023. Her last dialysis was Friday (11/04) and it was uneventful. She went to the ED at [facility] yesterday (), she had a fever of 104 F and her WBC were 18,000. She had blood and urine cultures collected.She went home overnight. She was called in by the [facility] ED as her blood cultures are positive for Gram positive cocci and her urine grew Klebsiella. She was recommended to go back to the ED at [place] or to go directly to [facility] as she is due for dialysis today. Patient does not feel well enough to travel by car by herself to [place], and she plans to go to the ED in [place], to then be transferred to [place] for treatment of sepsis and dialysis needs. I have contacted [facility] for awareness. Hodan Berg M.D., Ph.D. documented in this encounter Plan of Treatment Upcoming Encounters Date Type Department Care Team (Latest Contact Info) Description 11/27/2023 8:30 AM CDT Appointment Department of Radiology, [facility], in [place], [place] [address] [place] [phone] Jo Root M.D., Ph.D. [address] [place] [phone] Discharge Disposition: Home or Self Care 11/27/2023 10:30 AM CDT Nurse Only Division of Nephrology and Hypertension in [address] [phone] Jo Root M.D., Ph.D. [address] [place] [phone] 11/27/2023 1:00 PM CDT Comprehensive Visit Division of Vascular and Endovascular Surgery in [address] [phone] Jo Root M.D., Ph.D. [address] [place] [phone] documented as of this encounter Visit Diagnoses Not on filedocumented in this encounter Care Teams Counter Stacker Relationship Specialty Start Date End Date None Reported, Pcp PCP - General Family Medicine 03/10/23 documented as of this encounter
--- OUTSIDE RECORDS SUMMARY | 2023-11-09 08:25 | XMS_ITS | Encounter Summary ---
Author Organization [facility] Address [address] [place] [address] Care Team Providers Care Melt Down Furnace Operator Name Role Phone None Reported, Pcp Primary Care Provider Unavail able Encounter Details Date Type Department Care Team ([facility] st Contact Info) Description 07/25/2023 Orders Only Division of Nephrology and Hypertension, [facility], in [place], [place] [address] [place] [place] [phone] Nicholas Tracey, MAGY, C.N.P., M.S.N. [address] [place] [phone] Social History Tobacco Use Types Packs/Day Years Used Date Smoking Tobacco: Never Smokeless Tobacco: Never Alcohol Use Standard Drinks/Week Comments Never 0 (1 standard drink = 0.6 oz pur e alcohol) [facility] Utilities Answer Date Recorded In the past 12 months has [employer], gas, oil, or water [employer] threatened to shut off services in your [...] your living situation today? I have a [facility] place to live 03/13/2023 Sex and Gender Information Value Date Recorded Sex Assigned at Female 03/13/2023 1:38 PM OSTEOLOGY TEACHER Gender Identity Female 03/13/2023 1:42 PM OSTEOLOGY TEACHER Sexual Orientation Straight 03/13/2023 1: 42 PM OSTEOLOGY TEACHER documented as of this encounter Plan of Treatment Upcoming Encounters Date Type Department Care Team (Latest Contact Info) Description 11/27/2023 8:30 AM CDT Appointment Department of Radiology, [facility], in [place], [place] [address] [place] [phone] Jo Root M.D., Ph.D. [address] [place] [phone] Discharge Disposition: Home or Self Care 11/27/2023 10:30 AM CDT Nurse Only Division of Nephrology and Hypertension in [place], [place] [address] [place] [address] Jo Root M.D., Ph.D. [address] [place] [phone] 11/27/2023 1:00 PM CDT Comprehensive Visit Division of Vascular and Endovascular Surgery in [place], [place] [address] [place] [phone] Jo Root M.D., Ph.D. [address] [place] [phone] documented as of this encounter Visit Diagnoses Not on filedocumented in this encounter Care Teams Melt Down Furnace Operator Relationship Specialty Start Date End Date None Reported, Pcp PCP - General Family Medicine 03/10/23 documented as of this encounter
--- OUTSIDE RECORDS SUMMARY | 2023-11-09 08:25 | XMS_ITS | Encounter Summary ---
Author Organization [facility] Address [address] [place] [address] Care Team Providers Care Felt Finishing Supervisor Name Role Phone None Reported, Pcp Primary Care Provider Unavail able Reason for Referral * Outpatient (Routine) - Closed Specialty Diagnoses / Procedures Referred By Contac t Referred To Contact Radiology Diagnoses Hemodialysis Status (HCC) Procedures IR Dialysis / High Flow Catheter Exchange Yin Garcia APRN, C.N.P., D.N.P. [address] [place] [phone] [facility] Referral ID Status Reason Start Date Expiration Date Visits Re quested Visits Authorized [id number] Closed 10/08/2023 10/07/2024 1 1 Reason for Visit * Outpatient (Routine) - Closed Specialty Diagnoses / Procedures Referred By Contac t Referred To Contact Radiology Diagnoses Hemodialysis Status (HCC) Procedures IR Dialysis / High Flow Catheter Exchange Yin Garcia APRN, C.N.P., D.N.P. [address] [place] [phone] [facility] Referral ID Status Reason Start Date Expiration Date Visits Re quested Visits Authorized [id number] Closed 10/08/2023 10/07/2024 1 1 Encounter Details Date Type Department Care Team (Latest Contact Info) Description 10/09/2023 12:17 PM CDT - 10/09/2023 3:11 PM CDT Hospital Encounter Department of Radiology in [place], [place] [address] [place] [phone] Yin Garcia APRN, C.N.P., D.N.P. [address] [place] [address] Emigdio Colon M.D. [address] [place] [address] Hemodialysis Status (HCC) Discharge Disposition: Home or Self Care Social History Tobacco Use Types Packs/Day Years Used Date Smoking Tobacco: Never Smokeless Tobacco: Never Alcohol Use Standard Drinks/Week Comments Never 0 (1 standard drink = 0.6 oz pur e alcohol) [facility] [employer] Answer Date Recorded In the past 12 months has e [employer], gas, oil, or water [email or web address] threatened to shut off services in your [...] your living situation today? I have a [facility] place to live 03/13/2023 Sex and Gender Information Value Date Recorded Sex Assigned at Female 03/13/2023 1:38 PM METAL CUT OFF SAW TENDER Gender Identity Female 03/13/2023 1:42 PM METAL CUT OFF SAW TENDER Sexual Orientation Straight 03/13/2023 1: 42 PM METAL CUT OFF SAW TENDER documented as of this encounter Last Filed [...] Body Mass Index 44.76 03/13/2023 11:03 AM METAL CUT OFF SAW TENDER documented in this encounter Discharge Instructions * Attachments The following attachments cannot be sent through Care Everywhere. * Your High-Flow Central Venous Catheter (Yemeni) documented in this encounter Medications at Time of Discharge Medication Sig Dispensed Refills Start Date End Date carvediloL (COREG) 12.5 mg tablet Take 1 tablet (12.5 mg total) by mouth 2 (two) times a day with meals. 180 tablet 3 05/06/2023 05/05/2024 calcium acetate,phosphat bind, (PHOSLO) 667 mg (169 mg calcium) capsule Take 1 capsule (667 mg total) by mouth 3 (three) times a day with meals. 270 capsule 3 05/13/2023 clobetasoL (Temovate) 0.05 % cream Apply 1 Application topically 2 (two) times a day. Apply to affected area in her lower extremity. 30 g 08/06/2023 sodium bicarbonate 650 mg tablet Take 2 tablets (1,300 mg total) by mouth 2 (two) times a day. 360 tablet 3 05/13/2023 torsemide (DEMADEX) 20 mg tablet Take 2 tablets (40 mg total) by mouth daily. 180 tablet 3 05/06/2023 05/05/2024 amLODIPine (NORVASC) 10 mg tablet 10 mg daily. 11/02/2020 11/07/2023 loperamide (IMODIUM A-D) 2 mg tablet Take 2 tabs now then one tab after each watery stool. 05/25/2021 11/07/2023 documented as of this encounter H&P Notes [...] 8:30 AM CDT Appointment Department of Radiology, [facility], in [place], [place] [address] [place] [address] Jo Root M.D., Ph.D. [address] [place] [address] Discharge Disposition: Home or Self Care 11/27/2023 10:30 AM CDT Nurse Only Division of Nephrology and Hypertension in [place], [place] [address] [place] [address] Jo Root M.D., Ph.D. [address] [place] [address] 11/27/2023 1:00 PM CDT Comprehensive Visit Division of Vascular and Endovascular Surgery in [place], [place] [address] [place] [address] Jo Root M.D., Ph.D. [address] [place] [address] documented as of this encounter Procedures Procedure [...] catheter were prepped and draped sterilely. A cargoman view showed the tip of the catheter [...] obtained from the patient via in person outfitter cabin.. Immediately prior to starting the procedure, in [...] dialysis catheter were prepped anddraped sterilely. A cargoman view showed the tip of the catheter [...] consent obtained from thepatient via in person outfitter cabin.. Immediately prior tostarting the procedure, in the [...] New catheter is ready for use. NR Libia Bullock APRN.N.PJanie, D.N.P. DH[facility]ES[facility] IR PROCEDURES documented in this [...] M.D.) documented in this encounter Care Teams Felt Finishing Supervisor Relationship Specialty Start Date End Date None Reported, Pcp PCP - General Family Medicine 03/10/23 documented as of this encounter
--- OUTSIDE RECORDS SUMMARY | 2023-11-09 08:25 | XMS_ITS | Data Portability ---
Author Organization [facility] Address [address] [place] [address] [place] [address] Assessment Encounter Date Assessment Date Assessment LastModified [...] 3 03:32:44 urinalysis, dipstick 2022 023 [email or web address] [place] [facility], [address] [place], [address], 3 16:18:19 BMP, blood 2022 023 [facility], [address] [place], [address], 3 03:14:29 HbA1c (hemoglobin A1c), blood 2022 023 [facility], [address] [place], [address], 3 03:14:29 BMP, serum or plasma 2023 024 [facility], [address] [place], [address], 4 22:15:41 Referral community health worker referral - NEEDS BP Cuff for BP monitoring BRANDO 2022 023 Not available 3 19:43:26 Procedures None recorded. Surgeries None recorded. Imaging CT, abdomen + pelvis, w/o contrast - has had cholecystec hector, attention to right upper quadrant 2022 023 [email or web address] [facility] Radiology Department, [address] [place], [address], 3 10:24:04 Medication Orders tramadol 50 mg tablet 2022 023 [facility], [address] [place], [address], 3 20:36:01 amlodipine 10 mg tablet 2022 023 [facility], [address] [place], [address], 3 16:04:20 losartan 50 mg tablet 2022 023 [email or web address] 5 [facility], [address] [place], [address], 4 10:23:10 metoprolol succinate ER 50 mg tablet,exte nded release 24 hr 2023 024 [facility], [address] [place] [address], [address], 11:15:24 Patient Targets Encounter Date Encounter Id Patient Goals Patient Target Last Modified By Organization Details Last Modified Time - check BP at home thrice weekly - has been referred to [facility] - likely f/u with [facility] given new insurance Not available 03/04/2023 10:48:58 Patient Instructions Encounter Date Encounter Id Patient Instructions Last Modified By Organization Details Last Modified Time 04/30/2022 [id number] try half tab of tramadol for discomfort, watch for drowsiness, avoid Tylenol and Advil kristian Not available 05/01/2022 12:15:46 05/30/2022 [id number] keep losing weight, avoid salt kristian Not available 06/03/2022 13:46:01 gradually incr meds for hypertension kristian Not available 05/31/2022 16:24:54 Reason for Referral 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 Refe rral for Essential hypertension [facility], Encounter Date: 02/22/2022 Hanger Off Referral for Ch ronic kidney disease stage [...] , dipst ick Leukocytes neg Not Available [facility] Office [address] [place] [address], [phone], 12/30/2022 16:03:54 12/31/19 23 12/30/2022 urina lysis , dipst ick Nitrite negati ve Not Available [address], [address], 12/30/2022 16:03:54 12/31/19 23 12/30/2022 urina lysis , dipst ick Urobilinogen 0.2 Not Available [facility] Office [address] [place] [address], [address], 12/30/2022 16:03:54 12/31/19 23 12/30/2022 urina lysis , dipst ick Protein ++++ Not Available [address], [address], 12/30/2022 16:03:54 12/31/19 23 12/30/2022 urina lysis , dipst ick pH 5 Not Available [address], [address], 12/30/2022 16:03:54 12/31/19 23 12/30/2022 urina lysis , dipst ick Blood small Not Available [address], [address], 12/30/2022 16:03:54 12/31/19 23 12/30/2022 urina lysis , dipst ick Specific Shubuta 1.025 Not Available [facility] [address], [address], 12/30/2022 16:03:54 12/31/19 23 12/30/2022 urina lysis , dipst ick Ketone Neg Not Available [address], [address], 12/30/2022 16:03:54 12/31/19 23 12/30/2022 urina lysis , dipst ick Bilirubin Neg Not Available [facility] Office [address] [place] [address], [address], 12/30/2022 16:03:54 12/31/19 23 12/30/2022 urina lysis , dipst ick Glucose Neg Not Available [address], [address], 12/30/2022 16:03:54 12/31/19 23 12/30/2022 urina lysis , dipst ick Appearance Clear Not Available [facility] Office [address] [place] [address], [address], 12/30/2022 16:03:54 12/31/19 23 12/30/2022 urina lysis , dipst ick Color Yellow Not Available [facility] [address] [place], [address], 12/30/2022 16:03:54 02/13/20 23 02/12/2023 BMP, serum or plasm a creatinine 3.6 Not Available [facility] [address] [place], [address], 02/18/2023 10:40:42 05/09/19 23 05/08/2022 CT, abdom en + pelvi s, w/ contr ast No observ ation record ed. [facility] Radiology Department [address] [place], [address], 05/08/2022 15:15:50 01/21/20 23 01/20/2023 US, navid y No observ ation record ed. [facility] Radiology [address] [place], [address], 01/26/2023 18:24:40 Result Notes None recorded. Problems Name Problem SNOMED Code Status Onset Date Resolution Date Notes Provider Name and Address Organization Details Recorded Time Essential hypertens ion 73155172 Active 2022 Carrington Miramontes MD [address] [place], [address], [facility] [employer] 3 19:28:35 Upper abdominal pain 42961730 Active 2022 Carrington Miramontes MD [address] [place], [address], [facility] [employer] 3 19:29:00 Body mass index 30+ - obesity 208439870 Active 2022 Carrington Miramontes MD [address] [place], [address], [facility] [employer] 3 16:06:36 Steatosis of liver 240774383 Active 2022 Carrington Miramontes MD [address] [place], [address], [facility] [employer] [facility] 3 16:07:35 Hyperlipi demia 86123484 Active 2022 Carrington Miramontes MD [address] [place], [address], [facility] 3 09:47:22 Calculus in renal pelvis 907686804 Active 2022 Carrington Miramontes MD [address] [place], [address], [facility] 3 13:48:08 Diverticu losis of colon 213570519 Active 2022 Carrington Miramontes MD [address] [place], [address], [facility] 3 13:48:33 Normocyti c anemia 583223473 Active 2022 noted during hospitaliz ation 02/08. Hgb 9.1 on 02/12 Wendy Bacon MD [address] [place], [address], [facility] 4 10:48:14 Problem Notes None recorded. Procedures Surgical History None recorded. Imaging Results Imaging Date Name Status LastModified by Organiz ation Details LastModified Time 05/08/2022 CT, abdomen + pelvis, w/ contrast completed [facility] Radiology Department [address] [place], [address], 05/08/2022 15:15:50 01/20/2023 US, kidney completed [facility] Radiology [address] [place], [address], 01/26/2023 18:24:40 Procedure Notes None recorded. Medical [...] Updated DateTime 04/30/2022 154.94 cm 45.7 kg/m2 095424.3 5 g 184 mm[Hg] 100 mm[Hg] Carrington Miramontes MD [address] [place], [address] [facility] [employer] 3 19:28:06 Date Recorded Body weight Heart rate Oxygen saturation Oxygen saturation in Arterial blood by Pulse oximetry Systolic blood pressure Diastolic blood pressure Provider Name and Address Organization Details Last Updated DateTime 3 743321. 58 g 90 /min 97 % 97 % 162 mm[Hg] 92 mm[Hg] DANII Abrams [address] [place], [address] [facility] [employer] 3 15:59:37 Date Recorded Body height Body mass index (BMI) Body weight Oxygen saturation Oxygen saturation in Arterial blood by Pulse oximetry Heart rate Systolic blood pressure Diastolic blood pressure Systolic blood pressure Provider Name and Address Organization Details Last Updated DateTime 3 154.94 cm 43.2 kg/m2 450318. 22 g 98 % 98 % 91 /min 186 mm[Hg] 98 mm[Hg] 180 mm[Hg] DANII Abrams [address] [place], [address], [facility] [employer] [facility] 3 13:50:01 Date Recorded Body height Body mass index (BMI) Body weight Respiratory rate Heart rate Body temperature Oxygen saturation Oxygen saturation in Arterial blood by Pulse oximetry Systolic blood pressure Diastolic blood pressure Provider Name and Address Organization Details Last Updated DateTime 4 154.94 cm 45.6 kg/m2 620555. 2 g 22 /min 110 /min 97.4 [degF] 99 % 99 % 186 mm[Hg] 99 mm[Hg] Pati Curran [facility] [employer] [facility] 4 10:13:51 Social History Question Answer Notes LastModified by Organizat ion Details LastModified Time Tobacco Smoking Status Never Smoker Carrington Miramontes MD [address] [place], [address], [facility] [employer] [facility] 04/30/2022 19:31:38 What Is Your Level Of Alcohol Consumption? None Information not available 04/30/2022 Are You Currently Employed? Yes [employer] Information not available 04/30/2022 Who Is Your Employer? [employer] [email or web address] Information not available 03/04/2023 Have There Been Any Changes To Your Family Or Social Situation? No Information not available 04/30/2022 Do You Feel Safe At Home? Yes Information not available 04/30/2022 What Is Your Relationship Status? Two Children At Home Information not available 04/30/2022 Do You Feel Stressed (tense, Restless, Nervous, Or Anxious, Or Unable To Sleep At Night)? [id number] Information not available 04/30/2022 Sex: Unknown Functional [...] dose, grisel-sucrose 03/07/2021 completed MARK BRIDGES [address] [place], [address], [facility] - [facility] 03/07/2021 16:15:55 Past Encounters Encounter ID Performer Location Encounter Start Date Encounter Closed Date Diagnosis/Indication Diagnosis SNOMED-CT Code Diagnosis ICD10 Code [id number] MARK BRIDGES [facility] [address] [place] [address] 03/07/2021 16:05:16 03/07/2021 19:03:45 Administration of SARS-CoV-2 mRNA vaccine 7532915279 Z23 [id number] LUIS MIGUEL LOYD MD [facility] [address] [place] [address] 02/22/2022 12:02:42 02/22/2022 12:53:09 Essential hypertension 76860564 I10 [id number] MD KERRY ShelbyMISSY [facility] [address] [place] [address] 04/30/2022 18:56:10 05/01/2022 12:30:20 Abdominal pain 71349075 R10.9 Essential hypertension 43285158 I10 [id number] Carrington Miramontes MD [facility] [address] [place] [address] 05/30/2022 10:48:12 05/30/2022 11:12:18 Essential hypertension 51434911 I10 Steatosis of liver 1007 K76.0 Body mass index 30+ - obesity 158126643 Z68.42 Hyperlipidemia 15227855 E78.5 [id number] DANII Abrams [facility] [address] [place] [address] 12/30/2022 15:26:38 12/30/2022 16:18:55 Essential hypertension 90848921 I10 Nocturia 048743353 R35.1 Diabetes m ellitus screening 822120980 Z13.1 [id number] DANII Abrams [facility] [address] [place] [address] 01/27/2023 10:45:36 01/27/2023 11:20:04 Essential hypertension 99291146 I10 Chronic ki dney disease stage 4 975884381 N18.4 [id number] Wendy Bacon MD [facility] [address] [place] [address] 03/04/2023 10:09:34 03/04/2023 10:41:29 Chronic kidney disease stage 4 402734499 N18.4 Essential hypertension 40460163 I10 Normocytic anemia 726760 002 D64.9 Health Concerns Section Related Observation [...] cancer screening: Mammogram 2 years ago at [facility]. DUE - colon ca screening: due No period x 2 years Lives with partner and 2 of her adult children Erica Good [facility] [address] [place], [address], [facility] [employer] 12/31/2022 10:40:06 01/27/2023 text/html HPI Notes: Pt [...] to see specialist. Meets with someone at [facility] to sign up for insurance on 02/04 DANII Abrams [address] [place], [address], [facility] [employer] [facility] 01/27/2023 13:54:44 03/04/2023 text/html HPI Notes: Leny is in for hospital discharge f/u. She was hospitalized at [facility] from 02/11- for NEDRA and hyperkalemia [...] to Nephrology, awaiting appt. Recently approved for [place], will likely transition care to [facility] for f/u. Leny notes persistent HTN today. Has a cuff at home, not checking BP regularly. Wendy Bacon MD [address] [facility] [place], [address], [facility] 03/04/2023 10:51:32 OBGyn Episode No OBEpisode recorded.
--- OUTSIDE RECORDS SUMMARY | 2023-11-09 08:25 | XMS_ITS | Encounter Summary ---
Author Organization [facility] Address [address] [place] [address] Care Team Providers Care Polisher Apprentice Name Role Phone None Reported, Pcp Primary Care Provider Unavail able Encounter Details Date Type Department Care Team ([facility] st Contact Info) Description 10/13/2023 Orders Only Division of Nephrology and Hypertension, [facility], in [place], [place] [address] [place] [phone] Nicholas Tracey, MAGY, C.N.P., M.S.N. [address] [place] [address] Social History Tobacco Use Types Packs/Day Years Used Date Smoking Tobacco: Never Smokeless Tobacco: Never Alcohol Use Standard Drinks/Week Comments Never 0 (1 standard drink = 0.6 oz pur e alcohol) [facility] Utilities Answer Date Recorded In the past 12 months has [employer], gas, oil, or water [employer] threatened to shut off services in your [...] your living situation today? I have a [facility] place to live 03/13/2023 Sex and Gender Information Value Date Recorded Sex Assigned at Female 03/13/2023 1:38 PM SHELL MOLDER Gender Identity Female 03/13/2023 1:42 PM SHELL MOLDER Sexual Orientation Straight 03/13/2023 1: 42 PM SHELL MOLDER documented as of this encounter Plan of Treatment Upcoming Encounters Date Type Department Care Team (Latest Contact Info) Description 11/27/2023 8:30 AM CDT Appointment Department of Radiology, [facility], in [place], [place] [address] [place] [address] Jo Root M.D., Ph.D. [address] [place] [address] Discharge Disposition: Home or Self Care 11/27/2023 10:30 AM CDT Nurse Only Division of Nephrology and Hypertension in [place], [place] [address] [place] [address] Jo Root M.D., Ph.D. [address] [place] [address] 11/27/2023 1:00 PM CDT Comprehensive Visit Division of Vascular and Endovascular Surgery in [place], [place] [address] [place] [address] Jo Root M.D., Ph.D. [address] [place] [address] documented as of this encounter Visit Diagnoses Not on filedocumented in this encounter Care Teams Polisher Apprentice Relationship Specialty Start Date End Date None Reported, Pcp PCP - General Family Medicine 03/10/23 documented as of this encounter
--- OUTSIDE RECORDS SUMMARY | 2023-11-09 08:25 | XMS_ITS | Encounter Summary ---
Author Organization [facility] Address [address] [place] [address] Care Team Providers Care Byproducts Operator Name Role Phone None Reported, Pcp Primary Care Provider Unavail able Encounter Details Date Type Department Care Team (Latest Contact Info) Description 11/07/2023 Intake [facility] Social History Tobacco Use Types Packs/Day Years Used Date Smoking Tobacco: Never Smokeless Tobacco: Never Alcohol Use Standard Drinks/Week Comments Never 0 (1 standard drink = 0.6 oz pur e alcohol) [facility] Utilities Answer Date Recorded In the past 12 months has [employer] gas, oil, or water [employer] threatened to shut off services in your [...] Sex Assigned at Female 03/13/2023 1:38 PM BOBBIN DUMPER Gender Identity Female 03/13/2023 1:42 PM BOBBIN DUMPER Sexual Orientation Straight 03/13/2023 1: 42 PM BOBBIN DUMPER documented as of this encounter Last Filed Vital Signs Vital Sign Reading Time Taken Comments Blood Pressure 160/76 11/07/2023 5:39 PM CDT Pulse 122 11/07/2023 5:39 PM CDT Temperature - - Respiratory Rate 18 11/07/2023 5:39 PM CDT Oxygen Saturation 98% 11/07/2023 5:39 PM CDT Inhaled Oxygen Concentration - - Weight - - Height - - Body Mass Index - - documented in this encounter Plan of Treatment Upcoming Encounters Date Type Department Care Team (Latest Contact Info) Description 11/27/2023 8:30 AM CDT Appointment Department of Radiology, [facility], in [place], [place] [address] [place] [address] Jo Root M.D., Ph.D. [address] [place] [address] Discharge Disposition: Home or Self Care 11/27/2023 10:30 AM CDT Nurse Only Division of Nephrology and Hypertension in [place], [place] [address] [place] [address] Jo Root M.D., Ph.D. [address] [place] [address] 11/27/2023 1:00 PM CDT Comprehensive Visit Division of Vascular and Endovascular Surgery in [place], [place] [address] [place] [address] Jo Root M.D., Ph.D. [address] [place] [address] documented as of this encounter Visit Diagnoses Not on filedocumented in this encounter Care Teams Byproducts Operator Relationship Specialty Start Date End Date None Reported, Pcp PCP - General Family Medicine 03/10/23 documented as of this encounter
--- OUTSIDE RECORDS SUMMARY | 2023-11-09 08:25 | XMS_ITS ---
Author Organization [facility] Address [address] [place] [address] Care Team Providers Care Commercial Lines Account Manager Name Role Phone None Reported, Pcp Primary Care Provider Unavail able Kidney Recovery Room Nurse Program Status:Closed (Closed) Start date:03/13/2023 Enrollment date:03/13/2023 Enrollment reason:Referred by provider End date:11/04/2023 Close reason:Transition to In-center Dialysis Continued Care and Services Coordination
== END 2023-11-07 16:11 | disposition home or self-care (01) ==
LOC: AMB 11-09 08:22
PROVIDERS: PCP Internal Medicine; Visit Provider Emergency Medicine Emergency Medical Services
DX: R50.9 Fever, unspecified (principal); R53.1 Weakness; I95.9 Hypotension, unspecified
CPT/HCPCS: A0425; A0429

== ENCOUNTER 2024-02-20 23:52 | Emergency (ER) | payer MEDICAID, SELFPAY ==
--- NOTE | 2024-02-20 23:54 | ED_ITS ---
HPI - General Adult General Time Seen by Provider: 00:01 Date Seen: 02/21/24 Chief complaint: Unspecified Complaint, Adult Stated complaint: [facility] put catheter, fell out Time Seen by Provider: 02/20/24 23:54 Source: patient Mode of arrival: ambulatory Limitations: no limitations History of Present Illness HPI narrative: 48-year-old female who comes in today with concern about dislodged catheter. Right tunneled dialysis catheter placed two weeks ago at [facility] 02/05. Related Data Home Medications ?Medication ?Instructions ?Recorded ?Confirmed carvedilol 12.5 mg tablet 12.5 mg PO BID 08/28/23 11/26/23 amlodipine 5 mg tablet 5 mg PO DAILY 11/06/23 11/26/23 clobetasol 0.05 % topical cream topical PRN 11/06/23 11/26/23 vitamin B complex-vitamin C-folic 1 tab PO DAILY 11/06/23 11/26/23 acid 0.8 mg tablet (Celine-Wally) Allergies Allergy/AdvReac Type Severity Reaction Status Date / Time No Known Drug Allergies Allergy Verified 11/26/23 18:22 PFSH PFS Medical History Infection of bloodstream concurrent with and due to presence of tunneled hemodialysis catheter ?T82.7XXA - Infection and inflammatory reaction due to other cardiac and vascular devices, implants and grafts, initial encounter (ICD-10) Surgical History History of umbilical hernia repair (09/26/03) ?Z98.890 - Other specified postprocedural states (ICD-10) ?Z87.19 - Personal history of other diseases of the digestive system (ICD-10) History of tubal ligation (~2002) ?Z98.51 - Tubal ligation status (ICD-10) History of cholecystectomy (04/19/10) ?Z90.49 - Acquired absence of other specified parts of digestive tract (ICD- 10) Family History Mother Stroke Diabetes Myocardial infarction, Onset Age: 55 Father Diabetes Brain tumor Brother Diabetes High blood pressure Sister Diabetes High blood pressure Social History What is your current living situation?: I presently have a place to live Problems where you live: declined to answer Problems where you live details: none In the past 12 months, utilities in danger of being shut off: yes In past 12 months, lack of transportation kept you from medical appts, meetings, work, or getting things needed for daily living: no In the past 12 mos, have been you worried that your food would run out before you had money to buy more?: sometimes true In the past 12 mos, the food you bought just didn't last and you didn't have money to buy more?: sometimes true Highest level of school completed/degree received: 9th grade Smoking Status: Never smoker Do you use any of these nicotine containing products: None Second hand tobacco smoke exposure: No How often do you have a drink containing alcohol: never AUDIT-C Alcohol total score: 0 Non-prescribed substance use: denies use Caffeine: Yes (coffee) How often does anyone, including family, friends and others, physically hurt you : never How often does anyone, including family, friends and others, insult or talk down to you: never How often does anyone, including family, friends and others, threaten you with harm: never How often does anyone, including family, friends and others, scream or curse at you: never service: No Health Related Social Needs: food insecurity (Z59.41) Exam Narrative: Exam Narrative: General: well nourished , NAD Head: Atraumatic and normocephalic ENT: External ears and external nose are normal Eyes: Conjunctiva clear, pupils are equal reactive, external ocular motions are intact Neck: Full spontaneous range of motion of the neck Chest: Puncture of right upper chest without active bleeding Lungs: No respiratory distress Musculoskeletal: No tenderness or deformity Neurologic: No gross focal neurologic deficits Skin: No rashes Psych: Mood and affect are appropriate Const: Vital Signs, click to edit/add: Vital Signs - 24 hr 02/21/24 00:02 Temperature 98.6 F Pulse Rate [Left P ulse Oximeter] 74 Respiratory Rate 16 Blood Pressure [Ri ght Forearm] 146/73 H Pulse Oximetry 97 Oxygen Delivery Me thod Room Air Course Course ED Course: Patient seen examined, presents with dislodged dialysis catheter. Had dialysis today, due again in 2 days. Will discuss with [facility] for replacement of dialysis catheter but this will not need to be done on an emergent basis. Reevaluation(s) Time of Reevaluation #1: 00:35 Reevaluation #1: Chest x-ray independently interpreted by me negative for acute findings, no evidence for hemothorax or pneumothorax. Waiting for call back from [facility] Time of Reevaluation #2: 00:46 Reevaluation #2: Patient to contact her central supply manager to have line placement on Friday. Vital Signs Vital signs: Initial Vital Signs Temperature 98.6 F 02/21/24 00:02 Temperature Source Temporal Artery Scan 02/21/24 00:02 Pulse Rate 74 02/21/24 00:02 Respiratory Rate 16 02/21/24 00:02 Blood Pressure 146/73 H 02/21/24 00:02 Blood Pressure Mean 97 02/21/24 00:02 Blood Pressure Position Semi-Fowlers 02/21/24 00:02 Pulse Oximetry 97 02/21/24 00:02 Oxygen Delivery Method Room Air 02/21/24 00:02 Vital Signs Temperature 98.6 F 02/21/24 00:02 Pulse Rate 74 02/21/24 00:02 Respiratory Rate 16 02/21/24 00:02 Blood Pressure 146/73 H 02/21/24 00:02 Pulse Oximetry 97 02/21/24 00:02 Oxygen Delivery Method Room Air 02/21/24 00:02 Temperature 98.6 F 02/21/24 00:02 Pulse Rate 74 02/21/24 00:02 Respiratory Rate 16 02/21/24 00:02 Blood Pressure 146/73 H 02/21/24 00:02 Pulse Oximetry 97 02/21/24 00:02 Oxygen Delivery Method Room Air 02/21/24 00:02 Discharge Plan Discharge Clinical Impression: IgAN (IgA nephropathy), Essential hypertension, End stage renal failure on dialysis, Complication of vascular dialysis catheter Patient Disposition: Home, Self-Care Condition: Stable Additional Instructions: Call your nephrology team in the morning to schedule catheter insertion on Friday with likely dialysis after- Dr. Hal Berg?[phone] Activity Level: No Restrictions Discharge Diet: Renal Prescriptions: No Action Celine-Wally 0.8 mg tablet 1 tab PO DAILY amlodipine 5 mg tablet 5 mg PO DAILY clobetasol 0.05 % cream topical PRN carvedilol 12.5 mg tablet 12.5 mg PO BID Follow Up/Referrals: Shonda Saba MD [Primary Care Provider] - Stand Alone Forms: [employer] Info Instructions
--- OUTSIDE RECORDS SUMMARY | 2024-02-20 23:56 | XMS_ITS | Referral Summary ---
Author Organization [facility] Address [address] [place] [id number] Care Team Providers Care Ribbon Lapper Tender Name Role Phone No Ref-Primary, Physician Primary Care Provider Allergies No known active allergies Medications amLODIPine (NORVASC) 5 MG tablet Daily 11/02/2020 Active loperamide (IMODIUM A-D) 2 MG tabletIndication s:Diarrhea of presumed infectious origin Take 2 tabs now then one tab after each watery stool. 40 tablet 05/25/2021 Active Social History Tobacco Use Types Packs/Day Years Used Date Smoking Tobacco: Never Assessed Adolescent Education Answer Date Record ed Getting School Help Needed Not on file 11/09 Comments Unknown Sex and Gender Information Value Date Recorded Sex Assigned at Not on file Legal Sex Female 3:53 PM CDT Gender Identity Not on file Sexual Orientation Not on file Last Filed Vital Signs Vital Sign Reading Time Taken Comments Blood Pressure 134/82 05/25/2021 4:56 PM CDT Pulse 68 05/25/2021 4:56 PM CDT Temperature 36.8 C (98.3 F) 05/25/2021 4:56 PM CDT Respiratory Rate - - Oxygen Saturation - - Inhaled Oxygen Concentration - - Weight 90.7 kg (200 lb) 05/25/2021 4:56 PM CDT Height - - Body Mass Index - - Plan of Treatment Not on file Care Teams Ribbon Lapper Tender Relationship Specialty Start Date End Date No Ref-Primary, Physician PCP - General 05/25/21
--- OUTSIDE RECORDS SUMMARY | 2024-02-20 23:56 | XMS_ITS | Referral Summary ---
Author Organization [facility] Address [address] [place] [id number] Care Team Providers Care College Teacher Name Role Phone None Reported, Pcp Primary Care Provider Unavail able Source Comments Patient records contain information from all sites at [facility]. For routine questions regarding patient records, call [phone] during business hours, M-F 8:00 AM - 5:00 PM Central Time. Record requests for emergency care only can be directed to [phone] at any time.[facility] Encounters Date Type Department Care Team Description 02/18/2024 Orders Only Division of Nephrology and Hypertension, [facility], in [place], [place] [address] [place] [address] Nicholas Tracey APRN, C.N.P., M.S.N. 02/13/2024 Orders Only Division of Nephrology and Hypertension in [place], [place] [address] [place] [address] Yennifer Valderrama M.S.N., R.N. Chronic Failure Renal End Stage Renal Disease Dialysis Dependent (HCC) (Primary Dx) 02/06/2024 10:50 AM PHYSICIAN OFFICE SPECIALIST - 02/06/2024 2:09 PM PHYSICIAN OFFICE SPECIALIST Hospital Encounter Department of Radiology in [place], [place] [address] [place] [address] Nicholas Tracey APRN, C.N.P., M.SAmos Costa M.D. Complication Dialysis Catheter Subsequent; Chronic Failure Renal End Stage Renal Disease Dialysis Dependent (HCC) Discharge Disposition: Home or Self Care 02/06/2024 Documentation Division of Nephrology and Hypertension, [facility], in [place], [place] [address] [place] [phone] Nicholas Tracey APRN, C.NNanette., M.S.N. 02/06/2024 Orders Only Division of Nephrology and Hypertension, [facility], in [place], [place] [address] [place] [phone] Nicholas Tracey APRN, C.NNanette., M.S.N. Complication Dialysis Catheter Subsequent (Primary Dx); Chronic Failure Renal End Stage Renal Disease Dialysis Dependent (HCC) 02/05/2024 8:50 AM PHYSICIAN OFFICE SPECIALIST Anesthesia Event [facility] [address] [place] [phone] Tao Bello M.D. 02/05/2024 7:45 AM PHYSICIAN OFFICE SPECIALIST - 02/05/2024 11:03 AM PHYSICIAN OFFICE SPECIALIST Surgery [facility] [address] [place] [phone] Glen [place] M.D. CREATION FISTULA RADIOCEPHALIC ARTERIOVENOUS 02/05/2024 5:41 AM PHYSICIAN OFFICE SPECIALIST - 02/05/2024 3:22 PM PHYSICIAN OFFICE SPECIALIST Hospital Encounter [facility] [address] [place] [phone] Glen [place] M.D. Discharge Disposition: Home or Self Care 02/01/2024 10:38 AM PHYSICIAN OFFICE SPECIALIST - 02/01/2024 11:59 PM PHYSICIAN OFFICE SPECIALIST Hospital Encounter Department of Radiology, [facility] in [place], [place] [address] [place] [phone] Jo Root M.D., Ph.D. Nodule Pulmonary Discharge Disposition: Home or Self Care 01/30/2024 Clinical Communication Division of Nephrology and Hypertension in [place], [place] [address] [place] [phone] Jo Root M.D., Ph.D. 01/22/2024 1:00 PM PHYSICIAN OFFICE SPECIALIST Internal E-Consult Department of Cardiovascular Medicine in [place], [place] [address] [place] [phone] Samuel Love M.B., Ch.B., [place]. Patent Foramen Ovale (HCC) 01/21/2024 Orders Only Division of Nephrology and Hypertension in [place], [place] [address] [place] [phone] Jo Root M.D., Ph.D. Nodule Pulmonary (Primary Dx) 01/21/2024 10:05 AM PHYSICIAN OFFICE SPECIALIST - 01/21/2024 3:35 PM PHYSICIAN OFFICE SPECIALIST Hospital Encounter Department of Radiology in [place], [place] [address] [place] [phone] Nicholas Tracey APRN C.N.P., M.S.N. Antony Liz M.D. Complication Dialysis Catheter Subsequent; Chronic Failure Renal End Stage Renal Disease Dialysis Dependent (HCC) Discharge Disposition: Home or Self Care 01/21/2024 Documentation Division of Nephrology and Hypertension, [facility], in [place], [place] [address] [place] [phone] Nicholas Tracey APRN C.N.P., M.S.N. 01/21/2024 Orders Only Division of Nephrology and Hypertension, [facility], in [place], [place] [address] [place] [phone] Nicholas Tracey APRN C.N.P., M.S.N. Complication Dialysis Catheter Subsequent (Primary Dx); Chronic Failure Renal End Stage Renal Disease Dialysis Dependent (HCC) 01/19/2024 8:55 AM PHYSICIAN OFFICE SPECIALIST Ancillary Procedure Department of Radiology in [place], [place] [address] [place] [phone] Aleks Velasquez Jr., M.D. N[facility]ule Pulmonary 01/19/2024 8:00 AM PHYSICIAN OFFICE SPECIALIST Internal E-Consult Division of Pulmonary Medicine in [place], [place] [address] [place] [phone] Aleks Velasquez Jr., M.D. Nodule Pulmonary 12/26/2023 4:18 PM PHYSICIAN OFFICE SPECIALIST - 12/26/2023 6:50 PM PHYSICIAN OFFICE SPECIALIST Hospital Encounter Department of Radiology in [place], [place] [address] [place] [address] Nicholas Tracey APRN, C.NGenesis, M.S.N. Ascencion Rodrigues M.D. Complication Dialysis Catheter Subsequent Discharge Disposition: Home or Self Care 12/26/2023 Documentation Division of Nephrology and Hypertension, [facility], in [place], [place] [address] [place] [address] Nicholas Tracey APRN, C.N.P., M.S.N. 12/26/2023 Orders Only Division of Nephrology and Hypertension, [facility], in [place], [place] [address] [place] [address] Nicholas Tracey APRN, C.NNanette., M.S.N. Complication Dialysis Catheter Subsequent (Primary Dx); Chronic Failure Renal End Stage Renal Disease Dialysis Dependent (HCC) 12/24/2023 Orders Only Division of Nephrology and Hypertension, [facility], in [place], [place] [address] [place] [address] Nicholas Tracey APRN, C.N.Isabelle., M.S.N. 12/23/2023 Orders Only [facility] in [place], [place] [address] [place] [address] Linnette Marti R.N., C.C.T.C. Morbid Obesity Body Mass Index 40.0-44.9 Adult (HCC) (Primary Dx) 12/23/2023 Clinical Communication [facility] [place], [place] [address] [place] [phone] Linnette Marti R.N., C.C.T.C. Appointment (KTE Surgical Visit) 12/23/2023 10:00 AM PHYSICIAN OFFICE SPECIALIST Clinical Communication [facility]dy [place] [facility] in [place], [place] [address] [place] [phone] Shahid Edge M.D. Heyer, Danielle R, R.N., C.C.T.C. Weight Loss (Initial Nurse Consult) 12/22/2023 Orders Only Division of Nephrology and Hypertension, [facility], in [place], [place] [address] [place] [address] Nicholas Tracey APRN C.N.P., M.S.N. 12/20/2023 Orders Only Division of Nephrology and Hypertension, [facility], in [place], [place] [address] [place] [address] Nicholas Tracey APRN C.N.P., M.S.N. 12/19/2023 Documentation Division of Nephrology and Hypertension, [facility], in [place], [place] [address] [place] [address] Nicholas Tracey APRN C.N.P., M.S.N. 12/19/2023 Orders Only Division of Nephrology and Hypertension, [facility], in [place], [place] [address] [place] [address] Nicholas Tracey APRN C.N.P., M.S.N. Complication Dialysis Catheter Subsequent (Primary Dx); Chronic Failure Renal End Stage Renal Disease Dialysis Dependent (HCC) 12/18/2023 Clinical Communication [facility] in [place], [place] [address] [place] [address] Nataliia Jackson M, R.N. 12/16/2023 Clinical Communication Division of Nephrology and Hypertension in [place], [place] [address] [place] [address] Jo Root M.D., Ph.D. Phone Contact 12/15/2023 Documentation Division of Nephrology and Hypertension in [place], [place] [address] [place] [phone] Rosanna Serrato, R.N. 12/15/2023 Orders Only [facility] in [place], [place] [address] [place] [address] Linnette Marti R.N., C.C.T.C. Morbid Obesity Body Mass Index 40.0-44.9 Adult (HCC) (Primary Dx) 12/11/2023 Orders Only [facility] in [place], [place] [address] [place] [address] Nataliia Jackson R.N. Chronic Kidney Disease Stage 5 GFR Less Than 15 Dialysis Dependent (HCC) (Primary Dx); Hemodialysis Status (HCC); Glomerulonephritis Immunoglobulin A (IgA Nephropathy); Hypertension Essential Primary; Nodule Pulmonary 12/11/2023 9:00 AM CDT Clinical Communication [facility] in [place], [place] [address] [place] [address] Nataliia Jackson R.N. Txp Initial RN Phone Interview 12/09/2023 Clinical Communication Division of Nephrology and Hypertension in [place], [place] [address] [place] [address] Jo Root M.D., Ph.D. 12/09/2023 Orders Only Division of Nephrology and Hypertension in [place], [place] [address] [place] [address] Jo Root M.D., Ph.D. Patent Foramen Ovale (HCC) (Primary Dx) 12/09/2023 Orders Only Division of Nephrology and Hypertension in [place], [place] [address] [place] [address] Jo Root M.D., Ph.D. Nodule Pulmonary (Primary Dx) 12/01/2023 Patient Outreach Section of Infectious Diseases in [place], [place] [address] [place] [address] Anny Nazario RJanieN. 12/01/2023 Documentation Division of Nephrology and Hypertension in [place], [place] [address] [place] [address] Carrington Perrin Jr., D.O. 11/27/2023 1:00 PM CDT Comprehensive Visit Division of Vascular and Endovascular Surgery in [place], [place] [address] [place] [address] Jo Root M.D., Ph.D. [place] M.D. Chronic Kidney Disease Stage 5 GFR Less Than 15 Dialysis Dependent (HCC) 11/27/2023 10:30 AM CDT Nurse Only Division of Nephrology and Hypertension in [place], [place] [address] [place] [address] Jo Root M.D., Ph.D. Rosanna Serrato RJanis. 11/27/2023 8:18 AM CDT - 11/27/2023 11:59 PM CDT Hospital Encounter Department of Radiology, [facility], in [place], [place] [address] [place] [address] Jo Root M.D., Ph.D. Chronic Kidney Disease Stage 5 GFR Less Than 15 Dialysis Dependent (HCC) Discharge Disposition: Home or Self Care 11/25/2023 Patient Outreach Section of Infectious Diseases in [place], [place] [address] [place] [address] Antonia Roblero R.N. OPAT (Lab Entry) from Last 3 Months Allergies No known active allergies Medications carvediloL (COREG) 12.5 mg tablet Take 1 tablet (12.5 mg total) by mouth 2 (two) times a day with meals. 180 tablet 3 05/06/19 24 025 Active calcium acetate,phospha t bind, (PHOSLO) 667 mg (169 mg calcium) capsule Take 1 capsule (667 mg total) by mouth 3 (three) times a day with meals. 270 capsule 3 05/13/19 24 Active sodium bicarbonate 650 mg tablet Take 2 tablets (1,300 mg total) by mouth 2 (two) times a day. 360 tablet 3 05/13/19 24 Active B complex-vitamin C-FA (Nephro-Wally) 0.8 mg tablet Take 1 tablet by mouth daily. Active ceFAZolin (Ancef) 200 mg/mL injectionIndica tions:Blood stream infection Infuse 10 mL (2 g total) into a venous catheter 3 (three) times a week Indications: Blood stream infection. Friday--Friday after dialysis. Dialysis center will provide medication. 11/12/19 24 Active acetaminophen (TylenoL) 500 mg tablet Take 500 mg by mouth every 6 (six) hours as needed for pain. Active warfarin (Jantoven) 2 mg tablet Take 2.5 tablets (5 mg total) by mouth daily. 5 mg every evening daily 225 tablet 02/17/19 25 025 Active warfarin (Jantoven) 2 mg tablet Take 1 tablet (2 mg total) by mouth daily. 2 mg every evening daily 12/20/19 24 024 Discontinued warfarin (Jantoven) 2 mg tablet Take 1 tablet (2 mg total) by mouth daily. 2 mg every evening daily 02/06/20 24 025 Discontinued(Re order) warfarin (Jantoven) 2 mg tablet Take 2.5 tablets (5 mg total) by mouth daily. 5 mg every evening daily 225 tablet 3 02/17/19 25 025 Discontinued(Re order) Active Problems Problem Noted Date Diagnosed Date Chronic Kidney Disease Stage 5 GFR Less Than 15 Dialysis Dependent 11/27/2023 Hypertensive Chronic Kidney Disease With Stage 5 Chronic Kidney Disease Or End Stage Renal Disease 11/07/2023 Glomerulonephritis Immunoglobulin A (IgA Nephrop athy) 11/07/2023 Nodule Pulmonary 11/07/20[address] Chronic Failure Renal End St age Renal Disease Dialysis Dependent 07/10/2023 Failure Renal Acute (Acute Kidney Injury) 2023 Resolved Problems Problem Noted Date Diagnosed Date Resolved Date Bacteremia 11/07/2023 11/12/2023 Sepsis 11/07/2023 11/12/2023 Fever Of Unknown Origin 11/07/202310/19 Leukocytosis 11/07/2023 11/12/2023 Immunizations Name Administration Dates Next Due DTaP (Infanrix, [employer]) 03/08/2009 Influenza, Unspecified 11/27/2009,11/17/2008 Social History Tobacco Use Types Packs/Day Years Used Date Smoking Tobacco: Never Smokeless Tobacco: Never Tobacco Cessation:Counseling Given: Not Answered Alcohol Use Standard Drinks/Week Comments Never 0 (1 standard drink = 0.6 oz pur e alcohol) [facility] Utilities Answer Date Recorded [...] living situation today? I [facility] a [facility] place to live 11/07/2023 Comments No Sex and Gender Information Value Date Recorded Sex Assigned at Female 03/13/2023 1:38 PM PHYSICIAN OFFICE SPECIALIST Legal Sex Female 10:08 PM PHYSICIAN OFFICE SPECIALIST Gender Identity Female 03/13/2023 1:42 PM PHYSICIAN OFFICE SPECIALIST Sexual Orientation Straight 03/13/2023 1: 42 PM PHYSICIAN OFFICE SPECIALIST Last Filed Vital Signs Vital Sign Reading Time Taken Comments Blood Pressure 127/79 02/06/2024 2:00 PM PHYSICIAN OFFICE SPECIALIST Pulse 77 02/06/2024 2:00 PM PHYSICIAN OFFICE SPECIALIST Temperature 36.4 C (97.5 F) 02/06/2024 1:37 PM PHYSICIAN OFFICE SPECIALIST Respiratory Rate 14 02/06/2024 2:00 PM PHYSICIAN OFFICE SPECIALIST Oxygen Saturation 98% 02/06/2024 2:00 PM PHYSICIAN OFFICE SPECIALIST Inhaled Oxygen Concentration - - Weight 109 kg (241 lb 1.2 oz) 02/06/2024 12:03 P M PHYSICIAN OFFICE SPECIALIST Height 165.1 cm (5' 5) 02/05/2024 6:35 AM PHYSICIAN OFFICE SPECIALIST Body Mass Index 40.12 02/05/2024 6:35 AM PHYSICIAN OFFICE SPECIALIST Plan of Treatment Upcoming Encounters Date Type Department Care Team (Latest Contact Info) Description 03/02/2024 10:00 AM PHYSICIAN OFFICE SPECIALIST Telemedicine Department of Patient Education in [address] [address] Sheree Franz M.D. [address] [place] [phone] 03/05/2024 11:30 AM PHYSICIAN OFFICE SPECIALIST Clinical Communication Virtual Review in [place], [place] [address] [place] [address] 03/09/2024 6:40 AM PHYSICIAN OFFICE SPECIALIST Lab Department of Laboratory Medicine and Pathology, [facility] in [address] [address] Sheree Franz M.D. [address] [place] [phone] 03/09/2024 6:50 AM PHYSICIAN OFFICE SPECIALIST Lab Department of Laboratory Medicine and Pathology, [facility] in [place], [place] [address] [place] [phone] Sheree Franz M.D. [address] [place] [phone] 03/09/2024 7:20 AM PHYSICIAN OFFICE SPECIALIST Ancillary Procedure Department of Cardiovascular Medicine in [place], [place] [address] [place] [address] Sheree Franz M.D. [address] [place] [phone] 03/09/2024 9:00 AM PHYSICIAN OFFICE SPECIALIST Comprehensive Visit Division of Endocrinology in [place], [place] [address] [place] [address] Jo Farris M.D. [address] [place] [phone] 03/09/2024 10:30 AM PHYSICIAN OFFICE SPECIALIST Comprehensive Visit [facility] in [place], [place] [address] [place] [phone] Idalia Hand M.D. [address] [place] [phone] 03/09/2024 12:00 PM PHYSICIAN OFFICE SPECIALIST Appointment Department of Radiology, [facility], in [place], [place] [address] [place] [address] Sheree Franz M.D. [address] [place] [phone] 03/09/2024 2:00 PM PHYSICIAN OFFICE SPECIALIST Virtual Visit [facility] in [place], [place] [address] [place] [phone] Sheree Franz M.D. [address] [place] [phone] 03/09/2024 3:20 PM PHYSICIAN OFFICE SPECIALIST Appointment Department of Cardiovascular Diseases in [place], [place] [address] [place] [address] Sheree Franz M.D. [address] [place] [phone] 03/10/2024 9:00 AM PHYSICIAN OFFICE SPECIALIST Comprehensive Visit [facility] in [place], [place] [address] [place] [address] Shahid Edge M.D. [address] [place] [phone] 03/10/2024 1:30 PM PHYSICIAN OFFICE SPECIALIST Appointment Division of Nephrology and Hypertension, [facility], in [place], [place] [address] [place] [address] Nicholas Tracey, MAGY, C.N.P., M.S.N. [address] [place] [phone] 03/11/2024 8:00 AM PHYSICIAN OFFICE SPECIALIST Clinical Support [facility] in [place], [place] [address] [place] [address] Sheree Franz M.D. [address] [place] [phone] Alyse Chang, IbisS.Kayla., L.I.C.S.W. [address] [place] [phone] 03/11/2024 10:00 AM PHYSICIAN OFFICE SPECIALIST Office [facility] in [place], [place] [address] [place] [address] Sheree Franz M.D. [address] [place] [address] 03/11/2024 11:00 AM PHYSICIAN OFFICE SPECIALIST Comprehensive [facility] in [place], [place] [address] [place] [address] Sheree Franz M.D. [address] [place] [phone] 03/11/2024 1:00 PM PHYSICIAN OFFICE SPECIALIST Nurse Only [facility] in [place], [place] [address] [place] [address] Sheree Franz M.D. [address] [place] [phone] 03/11/2024 4:00 PM PHYSICIAN OFFICE SPECIALIST Office Visit [facility] in [place], [place] [address] [place] [address] Idalia Hand M.D. [address] [place] [phone] 03/23/2024 1:30 PM PHYSICIAN OFFICE SPECIALIST Appointment Department of Radiology, [facility], in [place], [place] [address] [place] [address] Glen [place] M.D. [address] [place] [phone] Discharge Disposition: Home or Self Care 03/23/2024 3:00 PM PHYSICIAN OFFICE SPECIALIST Nurse Only Division of Nephrology and Hypertension in [place], [place] [address] [place] [address] Glen [place] M.D. [address] [place] [phone] Medical Devices Implanted Type Area Supervisor Customer Records Division Device Identifier Shelf Expiration Date Model / Serial / Lot Clp [employer] Lgt Ti Sm - [id number] Implanted:Qty : 1 on 02/05/2024 by Glen [place] M.D. at [facility] Hardware e.g. pins/screws/ rods Left: Arm Ethicon LT100 / / Clp Hrzn Ti 6 Clp [place] - [id number] Implanted:Qty : 1 on 02/05/2024 by Glen [place] M.D. at [facility] Hardware e.g. pins/screws/ rods Left: Arm [employer] [id number] / / Clp [facility] Ti Sm - [id number] Implanted:Qty : 1 on 02/05/2024 by Glen [place] M.D. at [facility] Hardware e.g. pins/screws/ rods Left: Arm Ethicon [id number] 08/16/2028 LT100 / / [id number] Misc Other Misc Other Right: Chest Wall Description:High flow dialys is catheter Procedures Procedure Name Priority Date/Time Associated Diagnosis Comments IR DIALYSIS / HIGH FLOW CATHETER EXCHANGE RAD - Routine (most inpatients and all outpatients) 02/06/2024 1:12 PM PHYSICIAN OFFICE SPECIALIST Complication Dialysis Catheter Subsequent Chronic Failure Renal End Stage Renal Disease Dialysis Dependent (HCC) LDA ANE NON-SURGICAL AIRWAY Routine 02/05/2024 8:58 AM PHYSICIAN OFFICE SPECIALIST CREATION FISTULA RADIOCEPHALIC ARTERIOVENOUS 02/05/2024 8:35 AM PHYSICIAN OFFICE SPECIALIST Chronic Kidney Disease Stage 5 GFR Less Than 15 Dialysis Dependent (HCC) PROTHROMBIN TIME (PT), P STAT 02/05/2024 7:44 AM PHYSICIAN OFFICE SPECIALIST BASIC METABOLIC PANEL, S/P STAT 02/05/2024 7:44 AM PHYSICIAN OFFICE SPECIALIST CT CHEST WITHOUT IV CONTRAST RAD - Routine (most inpatients and all outpatients) 02/01/2024 11:07 AM PHYSICIAN OFFICE SPECIALIST Nodule Pulmonary IR DIALYSIS / HIGH FLOW CATHETER EXCHANGE RAD - Routine (most inpatients and all outpatients) 01/21/2024 2:53 PM PHYSICIAN OFFICE SPECIALIST Complication Dialysis Catheter Subsequent Chronic Failure Renal End Stage Renal Disease Dialysis Dependent (HCC) INTERPRETATION OF OUTSIDE CT CHEST RAD - Routine (most inpatients and all outpatients) 01/19/2024 8:57 AM PHYSICIAN OFFICE SPECIALIST Nodule Pulmonary IR DIALYSIS / HIGH FLOW CATHETER EXCHANGE RAD - Routine (most inpatients and all outpatients) 12/26/2023 5:33 PM PHYSICIAN OFFICE SPECIALIST Complication Dialysis Catheter Subsequent ADULT OXYGEN THERAPY Routine 12/26/2023 4:27 PM PHYSICIAN OFFICE SPECIALIST US UPPER EXTREMITY BILATERAL DIALYSIS MAPPING RAD - Routine (most inpatients and all outpatients) 11/27/2023 9:24 AM CDT Chronic Kidney Disease Stage 5 GFR Less Than 15 Dialysis Dependent (HCC) from Last 3 Months Results * IR Dialysis / High Flow Catheter Exchange (02/06/2024 1:12 PM PHYSICIAN OFFICE SPECIALIST) Only the most recent of3 resultswithin the time period is included. Anatomical Region Laterality Modality Body, Vascular Interventiona l RST LOS, Vascular Interventional ARZ LOS, Vascular Interventional FLA LOS N/A X-Ray Angiography Impressions 02/06/2024 1:46 PM PHYSICIAN OFFICE SPECIALIST Exchange of a tunneled dialysis catheter, ready for use. NR Narrative 02/06/2024 1:46 PM PHYSICIAN OFFICE SPECIALIST EXAM: IR DIALYSIS / HIGH FLOW CATHETER EXCHANGE CLINICAL HISTORY: 48-year-old female patient with recurring catheter dysfunction and subsequent exchanges. TECHNIQUE: The patient was placed supine on the fluoroscopy table. The right neck, chest, and indwelling catheter were prepared and draped in sterile fashion. Fluoroscopic computer salesperson retail image demonstrates a tunneled dialysis catheter in expected position. The blue lumen aspirated, although the red lumen was occluded. Using lidocaine 1% for local anesthesia, blunt dissection was performed freeing the catheter cuff. The catheter was removed in its entirety over two stiff Glidewires. The peel-away sheath for a 19 cm Pristine catheter was advanced over a Glidewire, and the new catheter was advanced through the sheath into the right atrium. Both lumens flushed and aspirated well, and were filled with 4% citrate solution and capped. Catheter was secured to the skin with a 2-0 Prolene suture tied at the chest entry site and through the catheter wings. Sterile dressings applied. The patient tolerated the procedure well. No immediate complication. For placement of this central venous access, we followed a catheter checklist and standardized protocol. The position of the catheter tip was confirmed under fluoroscopic guidance, and a final image of the catheter position was obtained. Ready for use. PREPROCEDURE: Patient seen, evaluated, history reviewed, and approved for sedation. Airway, heart, and lung exam satisfactory for sedation. Discussed risks, benefits, alternatives for procedure, and/or sedation. The roles and responsibilities of care team members, residents, and fellows were discussed. Patient understands information and questions answered. Informed consent obtained from the patient. Immediately prior to starting the procedure, in the presence of the assisting personnel, a procedural pause was conducted to verify correct patient identity and verification of procedure to be performed, and as applicable, correct side and site, correct patient position, availability of implants, special equipment, or special requirements, and all image and specimen identification data. INTRAPROCEDURE: Moderate sedation was administered by sedation nurse under my supervision. The patient was continuously monitored with real time oxygen saturation, heart rate, ECG rhythm strip and blood pressure throughout administration of the sedation and performance of the procedure. The total intra-procedural sedation time was: 16 minutes. Estimated blood loss: minimal. Procedure Note Amos Torres M.D. - 02/06/2024 EXAM: IR DIALYSIS / HIGH FLOW CATHETER EXCHANGE CLINICAL HISTORY: 48-year-old female patient with recurring catheterdysfunction and subsequent exchanges. TECHNIQUE: The patient was placed supine on the fluoroscopy table. Theright neck, chest, and indwelling catheter were prepared and draped insterile fashion. Fluoroscopic computer salesperson retail image demonstrates a tunneled dialysiscatheter in expected position. The blue lumen aspirated, although the red lumen was occluded. Using lidocaine1% for local anesthesia, blunt dissection was performed freeing thecatheter cuff. The catheter was removed in its entirety over two stiffGlidewires. The peel-away sheath for a 19 cm Pristine catheter was advanced over aGlidewire, and the new catheter was advanced through the sheath into theright atrium. Both lumens flushed and aspirated well, and were filled with4% citrate solution and capped. Catheter was secured to the skin with a 2-0 Prolene suture tied at thechest entry site and through the catheter wings. Sterile dressingsapplied. The patient tolerated the procedure well. No immediatecomplication. For placement of this central venous access, we followed a catheterchecklist and standardized protocol. The position of the catheter tip wasconfirmed under fluoroscopic guidance, and a final image of the catheterposition was obtained. Ready for use. PREPROCEDURE: Patient seen, evaluated, history reviewed, and approved forsedation. Airway, heart, and lung exam satisfactory for sedation.Discussed risks, benefits, alternatives for procedure, and/or sedation.The roles and responsibilities of care team members, residents, and fellows were discussed. Patient understandsinformation and questions answered. Informed consent obtained from thepatient. Immediately prior to starting the procedure, in the presence ofthe assisting personnel, a procedural pause was conducted to verify correct patient identity and verificationof procedure to be performed, and as applicable, correct side and site,correct patient position, availability of implants, special equipment, orspecial requirements, and all image and specimen identification data. INTRAPROCEDURE: Moderate sedation was administered by sedation nurse undermy supervision. The patient was continuously monitored with real timeoxygen saturation, heart rate, ECG rhythm strip and blood pressurethroughout administration of the sedation and performance of the procedure. The total intra-procedural sedation timewas: 16 minutes. Estimated blood loss: minimal. IMPRESSION: Exchange of a tunneled dialysis catheter, ready for use. NR Nicholas Tracey APRN, C.N.P., M.S.N. IMG IR PROCEDURE S Final Result * LDA ANE NON-SURGICAL AIRWAY (02/05/2024 8:58 AM PHYSICIAN OFFICE SPECIALIST) Narrative Roseline Spears APRN, CRNA - 02/05/2024 8:58 AM PHYSICIAN OFFICE SPECIALIST Roseline Spears APRN, CRNA 02/05/2024 9:10 AM Airway Date/Time: 02/05/2024 8:58 AM Performed by: Roseline Spears APRN, CRNA Authorized by: Tao Bello M.D. Patient location during procedure: OR / Procedure Area PROCEDURE DETAILS: Mask difficulty assessment: not attempted Final airway type: supraglottic airway Device size: 4 Number of attempt to successful placement: 1 Supraglottic device: LMA unique Supraglottic device size: 4 Airway confirmation: bilateral breath sounds, positive ETCO2 and bilateral chest rise Other previous techniques attempted: none PRE PROCEDURE DETAILS: Pre evaluation for airway management: procedure Urgency: elective Preop assessment of probable difficulty: no difficulty anticipated Preoxygenation: bag valve mask SEDATION / ANESTHESIA Anesthesia method: anesthesia POST PROCEDURE DETAILS: Procedure outcome: successful Notable Events: no complications Tao Bello M.D. ANESTHESIA ORDERABLES F inal Result * Prothrombin Time (PT) (02/05/2024 7:44 AM PHYSICIAN OFFICE SPECIALIST) Prothrombin Time, P 11.5 9.4 - 12.5 sec 02/05/2024 7:58 AM PHYSICIAN OFFICE SPECIALIST STMA INR 1.0 0.9 - 1.1 02/05/2024 7:58 AM PHYSICIAN OFFICE SPECIALIST STMA Comment: ----ADDITIONAL INFORMATION---- Standard intensity warfarin therapeutic range: 2.0 to 3.0 High intensity warfarin therapeutic range: 2.5 to 3.5 Blood (Blood, Venous) 02/05/2024 7:44 AM PHYSICIAN OFFICE SPECIALIST 02/05/2024 7:50 AM PHYSICIAN OFFICE SPECIALIST Roseline Spears ELECTRICAL INSTRUMENTATION TECHNICIAN, ATTORNEY GENERAL LAB BLOOD ADD-ON Alley l Result [facility] [address] [place] [address], [facility] [address] [place] [address] * (ABNORMAL) Basic Metabolic Panel (02/05/2024 7:44 AM PHYSICIAN OFFICE SPECIALIST) Potassium, P 4.7 3.6 - 5.2 mmol/L 02/05/2024 8:45 AM PHYSICIAN OFFICE SPECIALIST DTL Sodium, P 137 135 - 145 mmol/L 02/05/2024 8:45 AM PHYSICIAN OFFICE SPECIALIST DTL Chloride, P 100 98 - 107 mmol/L 02/05/2024 8:45 AM PHYSICIAN OFFICE SPECIALIST DTL Bicarbonate, P 21(L) 22 - 29 mmol/L 02/05/2024 8:45 AM PHYSICIAN OFFICE SPECIALIST DTL Anion Gap, P 16(H) 7 - 15 02/05/2024 8:45 AM PHYSICIAN OFFICE SPECIALIST DTL BUN (Blood Urea Nitrogen), P 49(H) 6 - 21 mg/dL 02/05/2024 8:45 AM PHYSICIAN OFFICE SPECIALIST DTL Creatinine 5.72(H) 0.59 - 1.04 mg/dL 02/05/2024 8:45 AM PHYSICIAN OFFICE SPECIALIST DTL Estimated GFR (eGFR) <15(L) >=60 mL/min/BSA 02/05/2024 8:45 AM PHYSICIAN OFFICE SPECIALIST DTL Comment: Estimated GFR calculated using the 2020 CKD_EPI creatinine equation. Calcium, Total, P 8.6 8.6 - 10.0 mg/dL 02/05/2024 8:45 AM PHYSICIAN OFFICE SPECIALIST DTL Glucose, P 103 70 - 140 mg/dL 02/05/2024 8:45 AM PHYSICIAN OFFICE SPECIALIST DTL Blood (Blood, Venous) 02/05/2024 7:44 AM PHYSICIAN OFFICE SPECIALIST 02/05/2024 7:59 AM PHYSICIAN OFFICE SPECIALIST us Roseline Spears ELECTRICAL INSTRUMENTATION TECHNICIAN, ATTORNEY GENERAL LAB BLOOD ADD-ON Alley l Result [facility] [address] [place] [address], [facility] [place]note 2[facility] [address] [place] [address] * CT Chest without IV Contrast (02/01/2024 11:07 AM PHYSICIAN OFFICE SPECIALIST) Anatomical Region Laterality Modality Chest, Thoracic RST LOS, Tho racic ARZ LOS, Thoracic FLA LOS N/A Computed Tomography, Compute d Tomography Impressions 02/01/2024 4:08 PM PHYSICIAN OFFICE SPECIALIST Nearly resolved prior right upper lobe semisolid nodule, which was likely infectious/inflammatory. No concerning pulmonary nodules. Narrative 02/01/2024 4:08 PM PHYSICIAN OFFICE SPECIALIST EXAM: CT CHEST WITHOUT IV CONTRAST COMPARISON: Outside chest CT 11/07/2023. FINDINGS: Near-complete resolution of the prior right upper lobe semisolid nodule with minimal groundglass opacity remaining (3/108). This was likely infectious/inflammatory. Mild respiratory motion artifact. Mild scattered atelectasis/scarring. No concerning pulmonary nodules. No enlarged thoracic lymph nodes. Right IJ CVC terminates near the superior cavoatrial junction. Mild degenerative changes spine. Mild hepatic steatosis. Cholecystectomy. Procedure Note Teresa Potter M.D. - 02/01/2024 EXAM: CT CHEST WITHOUT IV CONTRAST COMPARISON: Outside chest CT 11/07/2023. FINDINGS: Near-complete resolution of the prior right upper lobe semisolid nodulewith minimal groundglass opacity remaining (3/108). This was likelyinfectious/inflammatory. Mild respiratory motion artifact. Mild scatteredatelectasis/scarring. No concerning pulmonary nodules. No enlarged thoracic lymph nodes. Right IJ CVC terminates near the superior cavoatrial junction. Mild degenerative changes spine. Mild hepatic steatosis. Cholecystectomy. IMPRESSION: Nearly resolved prior right upper lobe semisolid nodule, which was likelyinfectious/inflammatory. No concerning pulmonary nodules. Jo Berg M.D., Ph.D. IMG CT PROCEDU RES Final Result * Interpretation of Outside CT Chest (01/19/2024 8:57 AM PHYSICIAN OFFICE SPECIALIST) Anatomical Region Laterality Modality Chest, Thoracic RST LOS, Tho racic ARZ LOS, Thoracic FLA LOS, Other, Body N/A Computed Tomography Impressions 01/20/2024 9:48 AM PHYSICIAN OFFICE SPECIALIST A couple of small pulmonary nodules are present. These may be infectious/inflammatory, but are technically indeterminate. Consider a short interval (3 month) follow-up chest CT in further evaluation. Narrative 01/20/2024 9:48 AM PHYSICIAN OFFICE SPECIALIST EXAM: INTERPRETATION OF OUTSIDE CT CHEST without IV contrast dated 11/07/2023. COMPARISON: None. FINDINGS: A right upper lobe pulmonary nodule, which appears predominantly solid measures 7 x 12 mm (3/17). An additional probable 11 x 14 mm nodule is present in the medial basal right lower lobe (3/54). No additional pulmonary nodules. No pleural effusion. No thoracic lymphadenopathy by size criteria. Tiny esophageal hiatal hernia. Right IJ CVC with tip in the RA. Mild hypertrophic changes in the spine. This examination was performed in conjunction with a CT of the abdomen, which can be interpreted separately if clinically indicated. Procedure Note Erick Spears M.D. - 01/20/2024 EXAM: INTERPRETATION OF OUTSIDE CT CHEST without IV contrast dated11/07/2023. COMPARISON: None. FINDINGS: A right upper lobe pulmonary nodule, which appears predominantly solidmeasures 7 x 12 mm (3/17). An additional probable 11 x 14 mm nodule ispresent in the medial basal right lower lobe (3/54). No additionalpulmonary nodules. No pleural effusion. No thoracic lymphadenopathy by size criteria. Tiny esophageal hiatalhernia. Right IJ CVC with tip in the RA. Mild hypertrophic changes in the spine. This examination was performed in conjunction with a CT of the abdomen,which can be interpreted separately if clinically indicated. IMPRESSION: A couple of small pulmonary nodules are present. These may beinfectious/inflammatory, but are technically indeterminate. Consider ashort interval (3 month) follow-up chest CT in further evaluation. us Aleks Velasquez Jr., M.D. IMG CT PROCEDURES Fin al Result * US Upper Extremity Bilateral Dialysis Mapping (11/27/2023 9:24 AM CDT) Anatomical Region Laterality Modality Upper Extremity, Ultrasound RST LOS, Ultrasound ARZ LOS, Ultrasound FLA LOS, Procedural, Vascular Interventional NWWI LOS Bilateral Ultrasound Impressions 11/27/2023 11:00 AM CDT RIGHT Deep Vein Assessment: Normal. Central Arterial Assessment: Normal. ARTERIAL DIAMETERS Brachial artery: 4.4 mm Radial artery: 2.5 mm Ulnar artery: 2.1 mm Distance from right elbow crease to brachial artery bifurcation: 1.2 cm below. CEPHALIC VEIN Upper humerus: 3.6 mm Mid humerus: 4.1 mm Lower humerus: 3.5 mm Antecubital fossa: 4.6 mm Upper forearm: 2.8 mm Mid forearm: 3.6 mm Wrist: 2.5 mm BASILIC VEIN Upper humerus: 3.8 mm Mid humerus: 3.5 mm Lower humerus: 4.5 mm Antecubital fossa: 3.3 mm Upper forearm: 2.3 mm Mid forearm: 2.1 mm Wrist: 1.1 mm LEFT Deep Vein Assessment: Normal. Central Arterial Assessment: Normal. ARTERIAL DIAMETERS Brachial artery: 3.7 mm Radial artery: 2.4 mm Ulnar artery: 1.6 mm Distance from left elbow crease to brachial artery bifurcation: 1.7cm below. CEPHALIC VEIN Upper humerus: 2.7 mm Mid humerus: 2.6 mm Lower humerus: 2.1 mm Antecubital fossa: 2.1 mm Upper forearm: 2.6 mm Mid forearm: 3.4 mm Wrist: 2.5 mm BASILIC VEIN Upper humerus: Absent. Begins in the mid humerus Mid humerus: 4.4 mm Lower humerus: 4.7 mm Antecubital fossa: 4.3 mm Upper forearm: 2.1 mm Mid forearm: 1.4 mm Wrist: 1.1 mm López: ( * ) = too small (<2mm) or not visualized ( X ) = not examined Narrative 11/27/2023 11:00 AM CDT EXAM: US UPPER EXTREMITY BILATERAL DIALYSIS MAPPING Exam performed with color and spectral Doppler analysis. COMPARISON: None. Procedure Note Walter Santana M.D. - 11/27/2023 EXAM: US UPPER EXTREMITY BILATERAL DIALYSIS MAPPING Exam performed with color and spectral Doppler analysis. COMPARISON: None. IMPRESSION: RIGHT Deep Vein Assessment: Normal. Central Arterial Assessment: Normal. ARTERIAL DIAMETERS Brachial artery: 4.4 mm Radial artery: 2.5 mm Ulnar artery: 2.1 mm Distance from right elbow crease to brachial artery bifurcation: 1.2 cmbelow. CEPHALIC VEIN Upper humerus: 3.6 mm Mid humerus: 4.1 mm Lower humerus: 3.5 mm Antecubital fossa: 4.6 mm Upper forearm: 2.8 mm Mid forearm: 3.6 mm Wrist: 2.5 mm BASILIC VEIN Upper humerus: 3.8 mm Mid humerus: 3.5 mm Lower humerus: 4.5 mm Antecubital fossa: 3.3 mm Upper forearm: 2.3 mm Mid forearm: 2.1 mm Wrist: 1.1 mm LEFT Deep Vein Assessment: Normal. Central Arterial Assessment: Normal. ARTERIAL DIAMETERS Brachial artery: 3.7 mm Radial artery: 2.4 mm Ulnar artery: 1.6 mm Distance from left elbow crease to brachial artery bifurcation: 1.7cmbelow. CEPHALIC VEIN Upper humerus: 2.7 mm Mid humerus: 2.6 mm Lower humerus: 2.1 mm Antecubital fossa: 2.1 mm Upper forearm: 2.6 mm Mid forearm: 3.4 mm Wrist: 2.5 mm BASILIC VEIN Upper humerus: Absent. Begins in the mid humerus Mid humerus: 4.4 mm Lower humerus: 4.7 mm Antecubital fossa: 4.3 mm Upper forearm: 2.1 mm Mid forearm: 1.4 mm Wrist: 1.1 mm López: ( * ) = too small (<2mm) or not visualized ( X ) = not examined Jo Berg M.D., Ph.D. [facility] PROC[facility] RES Final Result from Last 3 Months Insurance [employer] Advance Directives For more information, please contact: [phone] * Full Code (Latest Code Status on File) Date Activated Date Inactivated Comments 02/05/2024 6:28 AM 02/05/2024 5:51 PM Question Answer Comments Full Code: Discussed * Full Code Date Activated Date Inactivated Comments 11/07/2023 6:39 PM 11/12/2023 8:43 PM Question Answer Comments Full Code: Not [...] Due to: Not medically appropriate Care Teams College Teacher Relationship Specialty Start Date End Date None Reported, Pcp PCP - General Family Medicine 03/10/23
--- OUTSIDE RECORDS SUMMARY | 2024-02-20 23:56 | XMS_ITS ---
Author Organization [facility] Address [address] [place] [id number] Care Team Providers Care Melt Supervisor Name Role Phone None Reported, Pcp Primary Care Provider Unavail able Procedures Procedure Name Priority Date/Time Associated Diagnosis Comments IR DIALYSIS / HIGH FLOW CATHETER EXCHANGE RAD - Routine (most inpatients and all outpatients) 02/06/2024 1:12 PM TREASURY ACCOUNTANT Complication Dialysis Catheter Subsequent Chronic Failure Renal End Stage Renal Disease Dialysis Dependent (HCC) LDA ANE NON-SURGICAL AIRWAY Routine 02/05/2024 8:58 AM TREASURY ACCOUNTANT CREATION FISTULA RADIOCEPHALIC ARTERIOVENOUS 02/05/2024 8:35 AM TREASURY ACCOUNTANT Chronic Kidney Disease Stage 5 GFR Less Than 15 Dialysis Dependent (HCC) PROTHROMBIN TIME (PT), P STAT 02/05/2024 7:44 AM TREASURY ACCOUNTANT BASIC METABOLIC PANEL, S/P STAT 02/05/2024 7:[address] CHEST WITHOUT IV CONTRAST RAD - Routine (most inpatients and all outpatients) 02/01/2024 11:07 AM TREASURY ACCOUNTANT Nodule Pulmonary IR DIALYSIS / HIGH FLOW CATHETER EXCHANGE RAD - Routine (most inpatients and all outpatients) 01/21/2024 2:53 PM TREASURY ACCOUNTANT Complication Dialysis Catheter Subsequent Chronic Failure Renal End Stage Renal Disease Dialysis Dependent (HCC) INTERPRETATION OF OUTSIDE CT CHEST RAD - Routine (most inpatients and all outpatients) 01/19/2024 8:57 AM TREASURY ACCOUNTANT Nodule Pulmonary IR DIALYSIS / HIGH FLOW CATHETER EXCHANGE RAD - Routine (most inpatients and all outpatients) 12/26/2023 5:33 PM TREASURY ACCOUNTANT Complication Dialysis Catheter Subsequent ADULT OXYGEN THERAPY Routine 12/26/2023 4:27 PM TREASURY ACCOUNTANT US UPPER EXTREMITY BILATERAL DIALYSIS MAPPING RAD - Routine (most inpatients and all outpatients) 11/27/2023 9:24 AM CDT Chronic Kidney Disease Stage 5 GFR Less Than 15 Dialysis Dependent (HCC) from Last 3 Months Allergies No [...] drink = 0.6 oz pur e alcohol) [facility] Utilities Answer Date Recorded In the past 12 months has e Tile, gas, oil, or water [employer] threatened to shut off services in your [...] [facility] to live 11/07/2023 Comments No Sex and Gender Information Value Date Recorded Sex Assigned at Female 03/13/2023 1:38 PM TREASURY ACCOUNTANT Legal Sex Female 10:08 PM TREASURY ACCOUNTANT Gender Identity Female 03/13/2023 1:42 PM TREASURY ACCOUNTANT Sexual Orientation Straight 03/13/2023 1: 42 PM TREASURY ACCOUNTANT Last Filed Vital Signs Vital Sign Reading Time Taken Comments Blood Pressure 127/79 02/06/2024 2:00 PM TREASURY ACCOUNTANT Pulse 77 02/06/2024 2:00 PM TREASURY ACCOUNTANT Temperature 36.4 C (97.5 F) 02/06/2024 1:37 PM TREASURY ACCOUNTANT Respiratory Rate 14 02/06/2024 2:00 PM TREASURY ACCOUNTANT Oxygen Saturation 98% 02/06/2024 2:00 PM TREASURY ACCOUNTANT Inhaled Oxygen Concentration - - Weight 109 kg (241 lb 1.2 oz) 02/06/2024 12:03 P M TREASURY ACCOUNTANT Height 165.1 cm (5' 5) 02/05/2024 6:35 AM TREASURY ACCOUNTANT Body Mass Index 40.12 02/05/2024 6:35 AM TREASURY ACCOUNTANT Results * IR Dialysis / High Flow Catheter Exchange (02/06/2024 1:12 PM TREASURY ACCOUNTANT) Only the most recent of3 resultswithin the time period is included. Anatomical Region Laterality Modality Body, Vascular Interventiona l RST LOS, Vascular Interventional ARZ LOS, Vascular Interventional FLA LOS N/A X-Ray Angiography Impressions 02/06/2024 1:46 PM TREASURY ACCOUNTANT Exchange of a tunneled dialysis catheter, ready for use. NR Narrative 02/06/2024 1:46 PM TREASURY ACCOUNTANT EXAM: IR DIALYSIS / HIGH FLOW CATHETER EXCHANGE CLINICAL HISTORY: 48-year-old female patient with recurring catheter dysfunction and subsequent exchanges. TECHNIQUE: The patient was placed supine on the fluoroscopy table. The right neck, chest, and indwelling catheter were prepared and draped in sterile fashion. Fluoroscopic apartment locator image demonstrates a tunneled dialysis catheter in [...] were prepared and draped insterile fashion. Fluoroscopic apartment locator image demonstrates a tunneled dialysiscatheter in expected [...] catheter, ready for use. NR Nicholas Tracey APRN C.N.PJanie, M.S.N. IMG IR PROCEDURE S Final Result * LDA ANE NON-SURGICAL AIRWAY (02/05/2024 8:58 AM TREASURY ACCOUNTANT) Narrative Roseline Spears APRN, CRNA - 02/05/2024 8:58 AM TREASURY ACCOUNTANT Roseline Spears APRN, CRNA 02/05/2024 9:10 AM [...] * Prothrombin Time (PT) (02/05/2024 7:44 AM TREASURY ACCOUNTANT) Prothrombin Time, P 11.5 9.4 - 12.5 sec 02/05/2024 7:58 AM TREASURY ACCOUNTANT STMA INR 1.0 0.9 - 1.1 02/05/2024 7:58 AM TREASURY ACCOUNTANT STMA Comment: ----ADDITIONAL INFORMATION---- Standard intensity warfarin therapeutic range: 2.0 to 3.0 High intensity warfarin therapeutic range: 2.5 to 3.5 Blood (Blood, Venous) 02/05/2024 7:44 AM TREASURY ACCOUNTANT 02/05/2024 7:50 AM TREASURY ACCOUNTANT us Roseline Spears RESIDENTIAL PEST CONTROL TECHNICIAN, TOOLMAKER HELPER LAB BLOOD ADD-ON Alley l Result [facility] [address] [place] [address], [facility] [address] [place] [address] * (ABNORMAL) Basic Metabolic Panel (02/05/2024 7:44 AM TREASURY ACCOUNTANT) Potassium, P 4.7 3.6 - 5.2 mmol/L 02/05/2024 8:45 AM TREASURY ACCOUNTANT DTL Sodium, P 137 135 - 145 mmol/L 02/05/2024 8:45 AM TREASURY ACCOUNTANT DTL Chloride, P 100 98 - 107 mmol/L 02/05/2024 8:45 AM TREASURY ACCOUNTANT DTL Bicarbonate, P 21(L) 22 - 29 mmol/L 02/05/2024 8:45 AM TREASURY ACCOUNTANT DTL Anion Gap, P 16(H) 7 - 15 02/05/2024 8:45 AM TREASURY ACCOUNTANT DTL BUN (Blood Urea Nitrogen), P 49(H) 6 - 21 mg/dL 02/05/2024 8:45 AM TREASURY ACCOUNTANT DTL Creatinine 5.72(H) 0.59 - 1.04 mg/dL 02/05/2024 8:45 AM TREASURY ACCOUNTANT DTL Estimated GFR (eGFR) <15(L) >=60 mL/min/BSA 02/05/2024 8:45 AM TREASURY ACCOUNTANT DTL Comment: Estimated GFR calculated using the 2020 CKD_EPI creatinine equation. Calcium, Total, P 8.6 8.6 - 10.0 mg/dL 02/05/2024 8:45 AM TREASURY ACCOUNTANT DTL Glucose, P 103 70 - 140 mg/dL 02/05/2024 8:45 AM TREASURY ACCOUNTANT DTL Blood (Blood, Venous) 02/05/2024 7:44 AM TREASURY ACCOUNTANT 02/05/2024 7:59 AM TREASURY ACCOUNTANT us Roseline Guerra Regan RESIDENTIAL PEST CONTROL TECHNICIAN, TOOLMAKER HELPER LAB BLOOD ADD-ON Alley l Result [facility] [address] [place] [address], [facility] DTL [facility] [address] [place] [address] * CT Chest without IV Contrast (02/01/2024 11:07 AM TREASURY ACCOUNTANT) Anatomical Region Laterality Modality Chest, Thoracic RST LOS, Tho racic ARZ LOS, Thoracic FLA LOS N/A Computed Tomography, Compute d Tomography Impressions 02/01/2024 4:08 PM TREASURY ACCOUNTANT Nearly resolved prior right upper lobe semisolid nodule, which was likely infectious/inflammatory. No concerning pulmonary nodules. Narrative 02/01/2024 4:08 PM TREASURY ACCOUNTANT EXAM: CT CHEST WITHOUT IV CONTRAST COMPARISON: [...] which was likelyinfectious/inflammatory. No concerning pulmonary nodules. us Jo Berg M.D., Ph.D. IMG CT PROCEDU RES Final Result * Interpretation of Outside CT Chest (01/19/2024 8:57 AM TREASURY ACCOUNTANT) Anatomical Region Laterality Modality Chest, Thoracic RST LOS, Tho racic ARZ LOS, Thoracic FLA LOS, Other, Body N/A Computed Tomography Impressions 01/20/2024 9:48 AM TREASURY ACCOUNTANT A couple of small pulmonary nodules are present. These may be infectious/inflammatory, but are technically indeterminate. Consider a short interval (3 month) follow-up chest CT in further evaluation. Narrative 01/20/2024 9:48 AM TREASURY ACCOUNTANT EXAM: INTERPRETATION OF OUTSIDE CT CHEST without [...] visualized ( X ) = not examined us Jo Berg M.D., Ph.D. IMG US PROCEDU RES Final Result from Last 3 Months
--- OUTSIDE RECORDS SUMMARY | 2024-02-20 23:56 | XMS_ITS ---
Author Organization [facility] Address [address] [place] [id number] Care Team Providers Care Outside Dealer Sales Representative Name Role Phone Unavailable Unavailable Unavailable Surgery Details Not on file Complications Check Surgery Details section. Procedure Estimated Blood Loss Check Surgery Details section. Procedure Findings Check Surgery Details section. Procedure Specimens Taken Check Surgery Details section.
--- OUTSIDE RECORDS SUMMARY | 2024-02-20 23:56 | XMS_ITS | Clinical Summary ---
Author Organization [facility] Address [address] [place] [id number] Care Team Providers Care Small Appliance Assembly Supervisor Name Role Phone No Ref-Primary, Physician Primary [...] SIG 1974 GLUCOSE 1974 MAMMO SCREENING 1974 sDNA (Cologuard) 1974 YEARLY PREVENTIVE VISIT 1977 COLONOSCOPY 1984 COLORECTAL CANCER SCREENING 1984 HIV SCREENING 1989 HEPATITIS C SCREENING 1992 PAP 12/29/1995 LIPID 2014 HEPATITIS B IMMUNIZATION (2 of 3 - 19+ 3-dose series) 06/07/2016 05/10/2016 PHQ-2 (once per calendar year) 2023 COVID-19 Vaccine (3 - 2023- season) 2023 06/23/2020, 06/02/2020 INFLUENZA VACCINE (#1) 2023 9, 05/10/2016, 03/02/2015, Additional history exists ZOSTER IMMUNIZATION (1 of 2) 2024 DTAP/TDAP/TD IMMUNIZATION (3 - Td or Tdap) 05/10/2026 05/10/2016, 03/08/2009 RSV VACCINE (1 - 1-dose 75+ series) 2049 HPV IMMUNIZATION Aged Out No longer e ligible based on patient's age to complete this topic MENINGITIS IMMUNIZATION Aged Out No l onger eligible based on patient's age to complete this topic Pneumococcal Vaccine: Pediatrics (0 to 5 Years) and At-Risk Patients (6 to 49 Years) Aged Out No longer eligible based on patient's age to complete this topic RSV MONOCLONAL ANTIBODY Aged Out No l onger eligible based on patient's age to complete this topic Care Teams Small Appliance Assembly Supervisor Relationship Specialty Start Date End Date No Ref-Primary, Physician PCP - General 05/25/21
--- OUTSIDE RECORDS SUMMARY | 2024-02-20 23:56 | XMS_ITS | Clinical Summary ---
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 For routine questions regarding patient records, call [phone] during business hours, M-F 8:00 AM - 5:00 PM Central Time. Record requests for emergency care only can be directed to [phone] at any time.[facility] Allergies No known active allergies Medications carvediloL [...] Of Unknown Origin 11/07/202310/19 Leukocytosis 11/07/2023 11/12/2023 Encounters Date Type Department Care Team Description 02/18/2024 Orders Only Division of Nephrology and Hypertension, [facility], in [place], [place] [address] [place] [address] Nicholas Tracey, MAGY, C.N.P., M.S.N. 02/13/2024 Orders Only Division of Nephrology and Hypertension in [place], [place] [address] [place] [phone] Yennifer Valderrama M.SJanis., R.N. 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 Amos Torres M.D. Complication Dialysis Catheter Subsequent; Chronic Failure Renal End Stage Renal Disease Dialysis Dependent (HCC) Discharge Disposition: Home or Self Care 02/06/2024 Documentation Division of Nephrology and Hypertension, [facility], [place], [place] [address] [place] [phone] Nicholas Tracey APRN, C.N.P., M.S.N. 02/06/2024 Orders Only Division of Nephrology and Hypertension, [facility], in [place], [place] [address] [place] [phone] Nicholas Tracey APRN C.N.P., M.S.N. Complication Dialysis Catheter Subsequent (Primary Dx); Chronic Failure Renal End Stage Renal Disease Dialysis Dependent (HCC) 02/05/2024 8:50 AM RANGE MOUNTER Anesthesia Event [facility] [address] [place] [phone] Tao Bello M.D. 02/05/2024 7:45 AM RANGE MOUNTER - 02/05/2024 11:03 AM RANGE MOUNTER Surgery [facility] OR [address] [place] [phone] Glen Baker M.D. CREATION FISTULA RADIOCEPHALIC ARTERIOVENOUS 02/05/2024 5:41 AM RANGE MOUNTER - 02/05/2024 3:22 PM RANGE MOUNTER Hospital Encounter [facility] [place] [address] [place] [phone] Glen Baker M.D. Discharge Disposition: Home or Self Care 02/01/2024 10:38 AM RANGE MOUNTER - 02/01/2024 11:59 PM RANGE MOUNTER Hospital Encounter Department of Radiology, [facility], in [place], [place] [address] [place] [address] Jo Root M.D., Ph.D. Nodule Pulmonary Discharge Disposition: Home or Self Care 01/30/2024 Clinical Communication Division of Nephrology and Hypertension in [place], [place] [address] [place] [phone] Jo Root M.D., Ph.D. 01/22/2024 1:00 PM RANGE MOUNTER Internal E-Consult Department of Cardiovascular Medicine in [place], [place] [address] [place] [phone] Samuel Love M.B., Ch.B., D.Leonardo. Patent Foramen Ovale (HCC) 01/21/2024 10:05 AM RANGE MOUNTER - 01/21/2024 3:35 PM RANGE MOUNTER Hospital Encounter Department of Radiology in [place], [place] [address] [place] [address] Nicholas Tracey APRN, C.N.P., M.S.N. Antony Liz M.D. Complication Dialysis Catheter Subsequent; Chronic Failure Renal End Stage Renal Disease Dialysis Dependent (HCC) Discharge Disposition: Home or Self Care 01/21/2024 Orders Only Division of Nephrology and Hypertension in [place], [place] [address] [place] [address] Jo Root M.D., Ph.D. Nodule Pulmonary (Primary Dx) 01/21/2024 Documentation Division of Nephrology and Hypertension, [facility], in [place], [place] [address] [place] [phone] Nicholas Tracey APRN, C.N.P., M.S.N. 01/21/2024 Orders Only Division of Nephrology and Hypertension, [facility], in [place], [place] [address] [place] [address] Nicholas Tracey APRN, C.N.P., M.S.N. Complication Dialysis Catheter Subsequent (Primary Dx); Chronic Failure Renal End Stage Renal Disease Dialysis Dependent (HCC) 01/19/2024 8:55 AM RANGE MOUNTER Ancillary Procedure Department of Radiology in [place], [place] [address] [place] [address] Aleks Velasquez Jr., M.D. Nodule Pulmonary 01/19/2024 8:00 AM RANGE MOUNTER Internal E-Consult Division of Pulmonary Medicine in [place], [place] [address] [place] [phone] Aleks Velasquez Jr., M.D. Nodule Pulmonary 12/26/2023 4:18 PM RANGE MOUNTER - 12/26/2023 6:50 PM RANGE MOUNTER Hospital Encounter Department of Radiology in [place], [place] [address] [place] [phone] Nicholas Tracey APRN, C.N.P., M.S.N. Ascencion Rodrigues M.D. Complication Dialysis Catheter Subsequent Discharge Disposition: Home or Self Care 12/26/2023 Documentation Division of Nephrology and Hypertension, [facility], in [place], [place] [address] [place] [address] Nicholas Tracey APRN C.N.P., M.S.N. 12/26/2023 Orders Only Division of Nephrology and Hypertension, [facility], in [place], [place] [address] [place] [address] Nicholas Tracey APRN C.N.P., M.S.N. Complication Dialysis Catheter Subsequent (Primary Dx); Chronic Failure Renal End Stage Renal Disease Dialysis Dependent (HCC) 12/24/2023 Orders Only Division of Nephrology and Hypertension, [facility], in [place], [place] [address] [place] [address] Nicholas Tracey APRN C.N.P., M.S.N. 12/23/2023 10:00 AM RANGE MOUNTER Clinical Communication Freddy martin [facility] for Transplantation and Clinical Regeneration in [place], [place] [address] [place] [address] Shahid Edge M.D. Heyer, Danielle R, R.N., C.C.T.C. Weight Loss (Initial Nurse Consult) 12/23/2023 Orders Only [facility] Transplantation and Clinical Regeneration in [place], [place] [address] [place] [phone] Linnette Marti R.N., RejiTJanieCJanie Morbid Obesity Body Mass Index 40.0-44.9 Adult (HCC) (Primary Dx) 12/23/2023 Clinical Communication [facility] Transplantation and Clinical Regeneration in [place], [place] [address] [place] [address] Linnette Marti R.N., WalterCJanieTJanieC. Appointment (KTE Surgical Visit) 12/22/2023 Orders Only Division of Nephrology and Hypertension, [facility], in [place], [place] [address] [place] [address] Nicholas Tracey APRN C.N.P., M.S.N. 12/20/2023 Orders Only Division of Nephrology and Hypertension, [facility], in [place], [place] [address] [place] [address] Nicholas Tracey APRN C.N.P., M.S.N. 12/19/2023 Documentation Division of Nephrology and Hypertension, [facility], in [place], [place] [address] [place] [address] Nicholas Tracey APRN C.N.P., M.S.N. 12/19/2023 Orders Only Division of Nephrology and Hypertension, [facility], in [place], [place] [address] [place] [address] Nicholas Tracey APRN C.N.P., M.S.N. Complication Dialysis Catheter Subsequent (Primary Dx); Chronic Failure Renal End Stage Renal Disease Dialysis Dependent (HCC) 12/18/2023 Clinical Communication [facility] Transplantation and Clinical Regeneration in [place], [place] [address] [place] [phone] Nataliia Jackson R.N. 12/16/2023 Clinical Communication Division of Nephrology and Hypertension in [place], [place] [address] [place] [address] Jo Root M.D., Ph.D. Phone Contact 12/15/2023 Documentation Division of Nephrology and Hypertension in [place], [place] [address] [place] [address] Rosanna Serrato, R.N. 12/15/2023 Orders Only [facility] for Transplantation and Clinical Regeneration in [place], [place] [address] [place] [address] Linnette Marti R.N., C.C.T.C. Morbid Obesity Body Mass Index 40.0-44.9 Adult (HCC) (Primary Dx) 12/11/2023 9:00 AM CDT Clinical Communication [facility] Transplantation and Clinical Regeneration in [place], [place] [address] [place] [address] Nataliia Jackson R.N. Txp Initial RN Phone Interview 12/11/2023 Orders Only [facility] Transplantation and Clinical Regeneration in [place], [place] [address] [place] [address] Nataliia Jackson R.N. Chronic Kidney Disease Stage 5 GFR Less Than 15 Dialysis Dependent (HCC) (Primary Dx); Hemodialysis Status (HCC); Glomerulonephritis Immunoglobulin A (IgA Nephropathy); Hypertension Essential Primary; Nodule Pulmonary 12/09/2023 Clinical Communication Division of Nephrology and Hypertension in [place], [place] [address] [place] [address] Jo Root M.D., Ph.D. 12/09/2023 Orders Only Division of Nephrology and Hypertension in [place], [place] [address] [place] [phone] Jo Root M.D., Ph.D. Patent Foramen Ovale (HCC) (Primary Dx) 12/09/2023 Orders Only Division of Nephrology and Hypertension in [place], [place] [address] [place] [phone] Jo Root M.D., Ph.D. Nodule Pulmonary (Primary Dx) 12/01/2023 Patient Outreach Section of Infectious Diseases in [place], [place] [address] [place] [phone] Anny Nazario RJanis. 12/01/2023 Documentation Division of Nephrology and Hypertension in [place], [place] [address] [place] [phone] Carrington Perrin Jr., D.OJanie 11/27/2023 1:00 PM CDT Comprehensive Visit Division of Vascular and Endovascular Surgery in [place], [place] [address] [place] [phone] Jo Root M.D., Ph.D. Glen Baker M.D. Chronic Kidney Disease Stage 5 GFR Less Than 15 Dialysis Dependent (HCC) 11/27/2023 10:30 AM CDT Nurse Only Division of Nephrology and Hypertension in [place], [place] [address] [place] [phone] Jo Root M.D., Ph.D. Rosanna Serrato R.N. 11/27/2023 8:18 AM CDT - 11/27/2023 11:59 PM CDT Hospital Encounter Department of Radiology, [facility], in [place], [place] [address] [place] [phone] Jo Root M.D., Ph.D. Chronic Kidney Disease Stage 5 GFR Less Than 15 Dialysis Dependent (HCC) Discharge Disposition: Home or Self Care 11/25/2023 Patient Outreach Section of Infectious Diseases in [place], [place] [address] [place] [phone] Antonia Roblero R.N. OPAT (Lab Entry) from Last 3 Months Immunizations Name Administration Dates Next Due DTaP (Infanrix, Tripedia) 03/08/2009 Influenza, Unspecified 11/27/2009,11/17/2008 Social History Tobacco Use Types Packs/Day Years Used Date Smoking Tobacco: Never Smokeless Tobacco: Never Tobacco Cessation:Counseling Given: Not Answered Alcohol Use Standard Drinks/Week Comments Never 0 (1 standard drink = 0.6 oz pur e alcohol) [facility] Utilities Answer Date Recorded In the [...] living situation today? I have a [facility] place to live 11/07/2023 Comments No Sex and Gender Information Value Date Recorded Sex Assigned at Female 03/13/2023 1:38 PM RANGE MOUNTER Legal Sex Female 10:08 PM RANGE MOUNTER Gender Identity Female 03/13/2023 1:42 PM RANGE MOUNTER Sexual Orientation Straight 03/13/2023 1: 42 PM RANGE MOUNTER Last Filed Vital Signs Vital Sign Reading Time Taken Comments Blood Pressure 127/79 02/06/2024 2:00 PM RANGE MOUNTER Pulse 77 02/06/2024 2:00 PM RANGE MOUNTER Temperature 36.4 C (97.5 F) 02/06/2024 1:37 PM RANGE MOUNTER Respiratory Rate 14 02/06/2024 2:00 PM RANGE MOUNTER Oxygen Saturation 98% 02/06/2024 2:00 PM RANGE MOUNTER Inhaled Oxygen Concentration - - Weight 109 kg (241 lb 1.2 oz) 02/06/2024 12:03 P M RANGE MOUNTER Height 165.1 cm (5' 5) 02/05/2024 6:35 AM RANGE MOUNTER Body Mass Index 40.12 02/05/2024 6:35 AM RANGE MOUNTER Plan of Treatment Upcoming Encounters Date Type Department Care Team (Latest Contact Info) Description 03/02/2024 10:00 AM RANGE MOUNTER Telemedicine Department of Patient Education in [address] [phone] Sheree Franz M.D. [address] [place] [phone] 03/05/2024 11:30 AM RANGE MOUNTER Clinical Communication Virtual Review in [place], [place] [address] [place] [address] 03/09/2024 6:40 AM RANGE MOUNTER Lab Department of Laboratory Medicine and Pathology, [facility] in [address] [phone] Sheree Franz M.D. [address] [place] [phone] 03/09/2024 6:50 AM RANGE MOUNTER Lab Department of Laboratory Medicine and Pathology, [facility] in [place], [place] [address] [place] [phone] Sheree Franz M.D. [address] [place] [phone] 03/09/2024 7:20 AM RANGE MOUNTER Ancillary Procedure Department of Cardiovascular Medicine in [place], [place] [address] [place] [address] Sheree Franz M.D. [address] [place] [phone] 03/09/2024 9:00 AM RANGE MOUNTER Comprehensive Visit Division of Endocrinology in [place], [place] [address] [place] [address] Jo Farris M.D. [address] [place] [phone] 03/09/2024 10:30 AM RANGE MOUNTER Comprehensive Visit Freddy martin [facility] for Transplantation and Clinical Regeneration in [place], [place] [address] [place] [phone] Idalia Hand M.D. [address] [place] [phone] 03/09/2024 12:00 PM RANGE MOUNTER Appointment Department of Radiology, [facility], in [place], [place] [address] [place] [address] Sheree Franz M.D. [address] [place] [phone] 03/09/2024 2:00 PM RANGE MOUNTER Virtual Visit Freddy martin [facility] Trans[facility] and Clinical Regeneration in [place], [place] [address] [place] [phone] Sheree Franz M.D. [address] [place] [phone] 03/09/2024 3:20 PM RANGE MOUNTER Appointment Department of Cardiovascular Diseases in [place], [place] [address] [place] [address] Sheree Franz M.D. [address] [place] [phone] 03/10/2024 9:00 AM RANGE MOUNTER Comprehensive Visit Freddy Slade [facility] and Clinical Regeneration in [place], [place] [address] [place] [address] Shahid Edge M.D. [address] [place] [phone] 03/10/2024 1:30 PM RANGE MOUNTER Appointment Division of Nephrology and Hypertension, [facility], in [place], [place] [address] [place] [address] Nicholas Tracey, MAGY, C.N.P., M.S.N. [address] [place] [phone] 03/11/2024 8:00 AM RANGE MOUNTER Clinical Support [facility] for Transplantation and Clinical Regeneration in [place], [place] [address] [place] [address] Sheree Franz M.D. [address] [place] [phone] Alyse Chang, IbisS.Kayla., L.I.C.S.W. [address] [place] [phone] 03/11/2024 10:00 AM RANGE MOUNTER Office [facility] in [place], [place] [address] [place] [address] Sheree Franz M.D. [address] [place] [address] 03/11/2024 11:00 AM RANGE MOUNTER [facility] in [place], [place] [address] [place] [address] Sheree Franz M.D. [address] [place] [phone] 03/11/2024 1:00 PM RANGE MOUNTER Nurse Only [facility] Transplantation and Clinical Regeneration in [place], [place] [address] [place] [address] Sheree Franz M.D. [address] [place] [phone] 03/11/2024 4:00 PM RANGE MOUNTER Office Visit [facility] Transplantation and Clinical Regeneration in [place], [place] [address] [place] [address] Idalia Hand M.D. [address] [place] [phone] 03/23/2024 1:30 PM RANGE MOUNTER Appointment Department of Radiology, [facility], in [place], [place] [address] [place] [address] Glen Baker M.D. [address] [place] [phone] Discharge Disposition: Home or Self Care 03/23/2024 3:00 PM RANGE MOUNTER Nurse Only Division of Nephrology and Hypertension in [place], [place] [address] [place] [address] Glen Baker M.D. [address] [place] [phone] Health Maintenance Due Date Last Done Comments CT Colonography 1974 Cologuard 1974 Colonoscopy 1974 Colorectal Cancer Screening 1974 FIT 1974 HIV Screening 1974 Hepatitis C Screening 1974 Visit: Chronic Disease, age 18+ 1974 Meningococcal Vaccine (1 - Risk 1-dose series ) 1976 MenB Vaccine (1 of 2 - Patient Seeks Protection) 1990 Hepatitis A Vaccines (1 of 2 - Risk 2-dose series) 1993 Pneumococcal vaccine (0-49 years) (1 of 2 - PCV) 1993 Zoster Vaccines (1 of 2) 1993 Hepatitis B Vaccines (2 of 3 - 19+ 3-dose series) 06/07/2016 05/10/2016 MMR Vaccines (2 of 2 - Risk 2-dose series) 06/07/2016 05/10/2016 Mammogram 03/07/2017 03/07/2016, 03/07/2016 Cervical/Vaginal Cancer Screening 07/29/2021 07/29/2018 Lipid (Cholesterol) Screening 07/30/2023 07/29/2018 COVID-19 Vaccine ( season) 2023 03/07/2021, 06/23/2020, 06/02/2020 Influenza Vaccine (#1) 2023 , 12/17/2018, 05/10/2016, Additional history exists Office Visit for Blood Pressure Check / Re-check 02/06/2024 11/07/2023 Depression Screening (Annual PHQ-2) 02/18/2024 DTaP,Tdap,and Td Vaccines (3 - Td or Tdap) 05/10/2026 05/10/2016, 03/08/2009, 03/08/2009 Fasting Glucose for Diabetes Screening 02/04/2027 02/05/2024, 11/12/2023, 11/11/2023, Additional history exists IPV Vaccines Aged Out No longer eligi ble based on patient's age to complete this topic Medical Devices Implanted Type Area Leather Case Finisher Device Identifier Shelf Expiration Date Model / Serial / Lot Clp Lgc Lgt Ti Sm - [id number] Implanted:Qty : 1 on 02/05/2024 by Glen aBker M.D. at [facility] Hardware e.g. pins/screws/ rods Left: Arm Ethicon [id number] / / Clp Hrzn Ti 6 Clp [place] - [id number] Implanted:Qty : 1 on 02/05/2024 by Glen Baker M.D. at [facility] Hardware e.g. pins/screws/ rods Left: Arm [employer] [id number] / / Clp Lgc Lgt Ti Sm - [id number] Implanted:Qty : 1 on 02/05/2024 by Glen Baker M.D. at [facility] Hardware e.g. pins/screws/ rods Left: Arm Ethicon [id number] 08/16/2028 LT100 / / [id number] Misc Other Misc Other Right: Chest Wall Description:High flow dialys is catheter Procedures Procedure Name Priority Date/Time Associated Diagnosis Comments IR DIALYSIS / HIGH FLOW CATHETER EXCHANGE RAD - Routine (most inpatients and all outpatients) 02/06/2024 1:12 PM RANGE MOUNTER Complication Dialysis Catheter Subsequent Chronic Failure Renal End Stage Renal Disease Dialysis Dependent (HCC) LDA ANE NON-SURGICAL AIRWAY Routine 02/05/2024 8:58 AM RANGE MOUNTER CREATION FISTULA RADIOCEPHALIC ARTERIOVENOUS 02/05/2024 8:35 AM RANGE MOUNTER Chronic Kidney Disease Stage 5 GFR Less Than 15 Dialysis Dependent (HCC) PROTHROMBIN TIME (PT), P STAT 02/05/2024 7:44 AM RANGE MOUNTER BASIC METABOLIC PANEL, S/P STAT 02/05/2024 7:[address] CHEST WITHOUT IV CONTRAST RAD - Routine (most inpatients and all outpatients) 02/01/2024 11:07 AM RANGE MOUNTER Nodule Pulmonary IR DIALYSIS / HIGH FLOW CATHETER EXCHANGE RAD - Routine (most inpatients and all outpatients) 01/21/2024 2:53 PM RANGE MOUNTER Complication Dialysis Catheter Subsequent Chronic Failure Renal End Stage Renal Disease Dialysis Dependent (HCC) INTERPRETATION OF OUTSIDE CT CHEST RAD - Routine (most inpatients and all outpatients) 01/19/2024 8:57 AM RANGE MOUNTER Nodule Pulmonary IR DIALYSIS / HIGH FLOW CATHETER EXCHANGE RAD - Routine (most inpatients and all outpatients) 12/26/2023 5:33 PM RANGE MOUNTER Complication Dialysis Catheter Subsequent ADULT OXYGEN THERAPY Routine 12/26/2023 4:27 PM RANGE MOUNTER US UPPER EXTREMITY BILATERAL DIALYSIS MAPPING RAD - Routine (most inpatients and all outpatients) 11/27/2023 9:24 AM CDT Chronic Kidney Disease Stage 5 GFR Less Than 15 Dialysis Dependent (HCC) from Last 3 Months Results * IR Dialysis / High Flow Catheter Exchange (02/06/2024 1:12 PM RANGE MOUNTER) Only the most recent of3 resultswithin the time period is included. Anatomical Region Laterality Modality Body, Vascular Interventiona l RST LOS, Vascular Interventional ARZ LOS, Vascular Interventional FLA LOS N/A X-Ray Angiography Impressions 02/06/2024 1:46 PM RANGE MOUNTER Exchange of a tunneled dialysis catheter, ready for use. NR Narrative 02/06/2024 1:46 PM RANGE MOUNTER EXAM: IR DIALYSIS / HIGH FLOW CATHETER EXCHANGE CLINICAL HISTORY: 48-year-old female patient with recurring catheter dysfunction and subsequent exchanges. TECHNIQUE: The patient was placed supine on the fluoroscopy table. The right neck, chest, and indwelling catheter were prepared and draped in sterile fashion. Fluoroscopic inventory planner image demonstrates a tunneled dialysis catheter in [...] were prepared and draped insterile fashion. Fluoroscopic inventory planner image demonstrates a tunneled dialysiscatheter in expected [...] LDA ANE NON-SURGICAL AIRWAY (02/05/2024 8:58 AM RANGE MOUNTER) Narrative Roseline Spears APRN, CRNA - 02/05/2024 8:58 AM RANGE MOUNTER Roseline Spears APRN, CRNA 02/05/2024 9:10 AM [...] * Prothrombin Time (PT) (02/05/2024 7:44 AM RANGE MOUNTER) Prothrombin Time, P 11.5 9.4 - 12.5 sec 02/05/2024 7:58 AM RANGE MOUNTER STMA INR 1.0 0.9 - 1.1 02/05/2024 7:58 AM RANGE MOUNTER STMA Comment: ----ADDITIONAL INFORMATION---- Standard intensity warfarin therapeutic range: 2.0 to 3.0 High intensity warfarin therapeutic range: 2.5 to 3.5 Blood (Blood, Venous) 02/05/2024 7:44 AM RANGE MOUNTER 02/05/2024 7:50 AM RANGE MOUNTER Roseline Spears BUTCHER APPRENTICE, CREDIT RESOLUTION REPRESENTATIVE LAB BLOOD [place] [address], [place] [address] * (ABNORMAL) Basic Metabolic Panel (02/05/2024 7:44 AM RANGE MOUNTER) Potassium, P 4.7 3.6 - 5.2 mmol/L 02/05/2024 8:45 AM RANGE MOUNTER DTL Sodium, P 137 135 - 145 mmol/L 02/05/2024 8:45 AM RANGE MOUNTER DTL Chloride, P 100 98 - 107 mmol/L 02/05/2024 8:45 AM RANGE MOUNTER DTL Bicarbonate, P 21(L) 22 - 29 mmol/L 02/05/2024 8:45 AM RANGE MOUNTER DTL Anion Gap, P 16(H) 7 - 15 02/05/2024 8:45 AM RANGE MOUNTER DTL BUN (Blood Urea Nitrogen), P 49(H) 6 - 21 mg/dL 02/05/2024 8:45 AM RANGE MOUNTER DTL Creatinine 5.72(H) 0.59 - 1.04 mg/dL 02/05/2024 8:45 AM RANGE MOUNTER DTL Estimated GFR (eGFR) <15(L) >=60 mL/min/BSA 02/05/2024 8:45 AM RANGE MOUNTER DTL Comment: Estimated GFR calculated using the 2020 CKD_EPI creatinine equation. Calcium, Total, P 8.6 8.6 - 10.0 mg/dL 02/05/2024 8:45 AM RANGE MOUNTER DTL Glucose, P 103 70 - 140 mg/dL 02/05/2024 8:45 AM RANGE MOUNTER DTL Blood (Blood, Venous) 02/05/2024 7:44 AM RANGE MOUNTER 02/05/2024 7:59 AM RANGE MOUNTER us Roseline Spears BUTCHER APPRENTICE, MAVIS LAB BLOOD ADD-ON Alley enriquez Result [facility] [address] [place] [address], [facility] DTL [facility] [address] [place] [address] * CT Chest without IV Contrast (02/01/2024 11:07 AM RANGE MOUNTER) Anatomical Region Laterality Modality Chest, Thoracic RST LOS, Tho racic ARZ LOS, Thoracic FLA LOS N/A Computed Tomography, Compute d Tomography Impressions 02/01/2024 4:08 PM RANGE MOUNTER Nearly resolved prior right upper lobe semisolid nodule, which was likely infectious/inflammatory. No concerning pulmonary nodules. Narrative 02/01/2024 4:08 PM RANGE MOUNTER EXAM: CT CHEST WITHOUT IV CONTRAST COMPARISON: [...] of Outside CT Chest (01/19/2024 8:57 AM RANGE MOUNTER) Anatomical Region Laterality Modality Chest, Thoracic RST LOS, Tho racic ARZ LOS, Thoracic FLA LOS, Other, Body N/A Computed Tomography Impressions 01/20/2024 9:48 AM RANGE MOUNTER A couple of small pulmonary nodules are present. These may be infectious/inflammatory, but are technically indeterminate. Consider a short interval (3 month) follow-up chest CT in further evaluation. Narrative 01/20/2024 9:48 AM RANGE MOUNTER EXAM: INTERPRETATION OF OUTSIDE CT CHEST without [...] month) follow-up chest CT in further evaluation. Aleks Velasquez Jr., M.D. IMG CT PROCEDURES [...] = not examined Jo Berg M.D., Ph.D. IMG PROCEDU RES Final Result from Last 3 Months Insurance [facility] Advance Directives For more information, please contact: [phone] * Full Code (Latest Code Status on [...] Due to: Not medically appropriate Care Teams [employer] Furn[employer] Operator Relationship Specialty Start Date End Date None Reported, Pcp PCP - General Family Medicine 03/10/23
--- OUTSIDE RECORDS SUMMARY | 2024-02-20 23:56 | XMS_ITS ---
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 Ordering Clinician Indication Dosage Frequency Signature (SIG) Comments Components Warfarin Sodium 02-19 13:17: 44 Yes Number of Repeats Allowed: Frequency: One time a day Mircera 2023-02 06:00: 00 Yes [id number] Number of Repeats Allowed: Frequency: PAULIE dosing, every two weeks heparin sodium, porcine 2023-02 12:15: 27 Yes [id number] Number of Repeats Allowed: Frequency: Every Dialysis TreatmentD osesOrdere d: Post CVC Instillati on 1600 Units 1:1000 Units/mLRo craig: Intracathe terDosesOr dered: Post CVC Instillati on 1600 Units 1:1000 Units/mLRo craig: Intracathe ter heparin sodium, porcine 2023-02 15:28: 57 Yes [id number] Number of Repeats Allowed: Frequency: Every Dialysis TreatmentD osesOrdere d: Hourly Dose 1000 Units/Hr 1:1000 Units/mLRo craig: Intravenou s heparin sodium, porcine 2023-02 15:28: 29 Yes [id number] Number of Repeats Allowed: Frequency: Every Dialysis TreatmentD osesOrdere d: Loading Dose 2000 Units 1:1000 Units/mLRo craig: Intravenou s calcitriol 2023-02 20:07: 56 Yes [id number] Number of Repeats Allowed: Frequency: Three times a week Normal Saline Solution 0.9% NaCl 2023-02 11:21: 44 Yes [id number] Number of Repeats Allowed: Frequency: Post-dialy sisDosesOr dered: Arterial Lumen 10 mL Route: Intracathe terDosesOr dered: Venous Lumen 10 mL Route: Intracathe ter Normal Saline Solution 0.9% NaCl 2023-02 11:19: 56 Yes [id number] Number of Repeats Allowed: Frequency: Pre-dialys isDosesOrd ered: Arterial Lumen 10 mL Route: Intracathe terDosesOr dered: Venous Lumen 10 mL Route: Intracathe ter Venofer 09-15 05:00: 00 Yes [id number] Number of Repeats Allowed: Frequency: One time a weekDosesO rdered: Maintenanc e Dose 50 Milligram Route: Intravenou s Carvedilol 07-15 14:13: 11 Yes Number of Repeats Allowed: Frequency: Two times a day Loperamide HCl 07-15 14:12: 23 Yes Number of Repeats Allowed: Frequency: As needed Oxygen 07-15 11:37: 03 Yes [id number] Number of Repeats Allowed: Frequency: As needed ondansetron hydrochlori de 07-15 11:36: 58 Yes [id number] Number of Repeats Allowed: Frequency: Every 4 hours as needed Normal Saline Solution 0.9% NaCl 07-15 11:36: 49 Yes [id number] Number of Repeats Allowed: Frequency: As needed Nitrostat 07-15 11:35: 16 Yes [id number] Number of Repeats Allowed: Frequency: Every 5 minutes as needed loperamide hydrochlori de 07-15 11:35: 03 Yes [id number] Number of Repeats Allowed: Frequency: Every 4 hours as needed Insta-Gluco se 07-15 11:34: 55 Yes [id number] Number of Repeats Allowed: Frequency: Every 5 minutes as needed diphenhydra mine hydrochlori de 07-15 11:34: 46 Yes [id number] Number of Repeats Allowed: Frequency: Every 4 hours as needed diphenhydra mine hydrochlori de 07-15 11:34: 38 Yes [id number] Number of Repeats Allowed: Frequency: Every 30 minutes as needed clonidine 07-15 11:34: 32 Yes [id number] Number of Repeats Allowed: Frequency: Every 4 hours as needed Antacid Extra Strength 07-15 11:34: 18 Yes [id number] Number of Repeats Allowed: Frequency: Every 4 hours as needed acetaminoph en 07-15 11:34: 07 Yes [id number] Number of Repeats Allowed: Frequency: Every 4 hours as needed acetaminoph en 07-15 11:34: 02 Yes [id number] Number of Repeats Allowed: Frequency: Every 4 hours as needed Problems This patient has no known problems. Procedures Procedure Date / Time Performed Performing Clinician Radha ce Details AV Fistula 2024-02-05 06:00:00 Access Site Upper Arm (Left) Access Use Start Date 2024-03-18 06:00:0 0 Central Venous Catheter (CVC)2024-01-21 06:00:00 Access Site Chest (Right) Access Use Start Date 2024-01-21 06:00:0 0 Central Venous Catheter (CVC)2023-12-26 06:00:00 Access Site Chest (Right) Access Use Start Date 2023-12-26 06:00:0 0 Access Use End Date 2024-01-21 06:00:00 Central Venous Catheter (CVC)2023-07-15 05:00:00 Access Site Chest (Right) Access Use Start Date 2023-07-16 05:00:0 0 Access Use End Date 2023-12-26 06:00:00 DIALYSIS ORDER Dialysis Procedure Orders Type of Dialysis Procedure Order Order Date/Time Observations In-Center Hemodialysis Treatment [facility] 2023 Target Weight 110 kg Dialysate Flow Rate 600 mL/min Blood Flow Rate 350 mL/min Treatment Time 210 min(total) Max UF Rate 13 mL/kg/hr Base Sodium Dialysate Base Sodium 138 mE q/L dialysate_temp 37 C BiCarb Dialysate BiCarbonate 37 mEq/L Access Concurrent No Arterial Access Central Venous Valery ter (CVC) (Chest (Right)) Venous Access Central Venous Valery ter (CVC) (Chest (Right)) Dialyzer Nelliero Autumnio 17H 145 5 treatment_[email or web address] Dialysate Bath Potassium Potassium 2 mEq /L Dialysate Bath Calcium Calcium 2.5 mEq/L Results Adequacy Description Draw Date Result/Unit Status Ref Range Result Comments nPCR 2024-01-29 02:56:18 1.11 G/KG/D F URR% 2024-01-29 02:56:18 76 % F PRESCRIBED DAYS/WEEK 2024-01-29 02:56:18 3 Day/Wk F Total Kt/V 2024-01-29 02:56:18 1.75 F WEIGHT (KG) 2024-01-29 02:56:18 106.4 kg F Residual kt/v 2024-01-29 02:56:18 F stdKt/V (DIAL) 2024-01-29 02:56:18 N/A F TBW (Wick) 2024-01-29 02:56:18 40.58 Liters F PATIENT AGE 2024-01-29 02:56:18 48 Years F stdKT/V Total 2024-01-29 02:56:18 N/A F AMPUTATE FACTOR 2024-01-29 02:56:18 0 F HEIGHT IN INCHES 2024-01-29 02:56:18 60 Inches F VT (KT/V TX VOL) 2024-01-29 02:56:18 30.6 L F TOTAL HOURS/WEEK DIALYSIS 2024-01-29 02:56:18 7 hrs F spKt/V 2024-01-29 02:56:18 1.75 F CURRENT KRU 2024-01-29 02:56:18 F Std Renal KT/V 2024-01-29 02:56:18 N/A F WEIGHT - POST DAY 1 2024-01-29 02:56:18 107 kg F WEIGHT - PRE DAY 1 2024-01-29 02:56:18 110.6 kg F VM (KT/V MEAN VOL) 2024-01-29 02:56:18 30.4 F BSA QUANG 2024-01-29 02:56:18 2 sq m F BLOOD FLOW-QWB 2024-01-29 02:56:18 322 F LENGTH OF DIALYSIS 2024-01-29 02:56:18 210 min F Dialyzer LEO 2024-01-29 02:56:18 1455 Calc F eKt/V 2024-01-29 02:56:18 1.47 F DIALYZER FLOW-QD 2024-01-29 02:56:18 567 mL/min F KT/V PRESCRIBED 2024-01-29 02:56:18 1.67 F Urea nitrogen [Mass/volume] in Serum or Plasma --post dialysis 2024-01-29 02:54:19 16 mg/dL F 9.0-23.0 Creatinine [Mass/volume] in Serum or Plasma 2024-01-28 23:21:14 6.34 mg/dL F 0.5-1.1 Urea nitrogen [Mass/volume] in Serum or Plasma 2024-01-28 23:21:14 67 mg/dL F 9.0-23.0 TOTAL HOURS/WEEK DIALYSIS 2024-01-14 05:23:21 10 hrs F WEIGHT - PRE DAY 1 2024-01-14 05:23:21 110.8 kg F Residual kt/v 2024-01-14 05:23:21 F DIALYZER FLOW-QD 2024-01-14 05:23:21 592 mL/min F KT/V PRESCRIBED 2024-01-14 05:23:21 1.55 F BSA QUANG 2024-01-14 05:23:21 1.99 sq m F Dialyzer LEO 2024-01-14 05:23:21 1455 Calc F LENGTH OF DIALYSIS 2024-01-14 05:23:21 195 min F VM (KT/V MEAN VOL) 2024-01-14 05:23:21 30.4 F PRESCRIBED DAYS/WEEK 2024-01-14 05:23:21 3 Day/Wk F stdKT/V Total 2024-01-14 05:23:21 N/A F VT (KT/V TX VOL) 2024-01-14 05:23:21 30.6 L F TBW (Wick) 2024-01-14 05:23:21 40.68 Liters F CURRENT KRU 2024-01-14 05:23:21 F Total Kt/V 2024-01-14 05:23:21 1.61 F BLOOD FLOW-QWB 2024-01-14 05:23:21 317 F eKt/V 2024-01-14 05:23:21 1.35 F HEIGHT IN INCHES 2024-01-14 05:23:21 60 Inches F spKt/V 2024-01-14 05:23:21 1.61 F AMPUTATE FACTOR 2024-01-14 05:23:21 0 F PATIENT AGE 2024-01-14 05:23:21 48 Years F nPCR 2024-01-14 05:23:21 1.37 G/KG/D F WEIGHT (KG) 2024-01-14 05:23:21 106 kg F Std Renal KT/V 2024-01-14 05:23:21 N/A F stdKt/V (DIAL) 2024-01-14 05:23:21 N/A F WEIGHT - POST DAY 1 2024-01-14 05:23:21 107.4 kg F URR% 2024-01-14 05:23:20 74 % F Creatinine [Mass/volume] in Serum or Plasma 2024-01-14 05:21:24 6.8 mg/dL F 0.5-1.1 Urea nitrogen [Mass/volume] in Serum or Plasma 2024-01-14 05:21:24 87 mg/dL F 9.0-23.0 Urea nitrogen [Mass/volume] in Serum or Plasma --post dialysis 2024-01-13 23:56:18 23 mg/dL F 9.0-23.0 URR% 2024-01-04 08:31:15 see comments F 65.0-100.0 Unable to Calculate. Urea nitrogen [Mass/volume] in Serum or Plasma --post dialysis 2024-01-04 08:22:42 F Canceled - Specimen not received 5 days past draw date KT/V PRESCRIBED 2023-12-31 00:34:24 F Unable to calculate: Post BUN lab result is unknown BSA QUANG 2023-12-31 00:34:24 F Unable to calculate: Post BUN lab result is unknown TOTAL HOURS/WEEK DIALYSIS 2023-12-31 00:34:24 7 hrs F VT (KT/V TX VOL) 2023-12-31 00:34:24 F Unable to calculate: Post BUN lab result is unknown Dialyzer LEO 2023-12-31 00:34:24 1455 Calc F WEIGHT (KG) 2023-12-31 00:34:24 106 kg F HEIGHT IN INCHES 2023-12-31 00:34:24 60 Inches F DIALYZER FLOW-QD 2023-12-31 00:34:24 589 mL/min F VM (KT/V MEAN VOL) 2023-12-31 00:34:24 F Unable to calculate: Post BUN lab result is unknown PRESCRIBED DAYS/WEEK 2023-12-31 00:34:24 3 Day/Wk F PATIENT AGE 2023-12-31 00:34:24 48 Years F Std Renal KT/V 2023-12-31 00:34:24 F Unable to calculate: Post BUN lab result is unknown WEIGHT - POST DAY 1 2023-12-31 00:34:24 106 kg F WEIGHT - PRE DAY 1 2023-12-31 00:34:24 109.2 kg F LENGTH OF DIALYSIS 2023-12-31 00:34:24 211 min F AMPUTATE FACTOR 2023-12-31 00:34:24 0 F Residual kt/v 2023-12-31 00:34:24 F Unable to calculate: Post BUN lab result is unknown TBW (Wick) 2023-12-31 00:34:24 F Unable to calculate: Post BUN lab result is unknown stdKt/V (DIAL) 2023-12-31 00:34:24 F Unable to calculate: Post BUN lab result is unknown CURRENT KRU 2023-12-31 00:34:24 F Unable to calculate: Post BUN lab result is unknown nPCR 2023-12-31 00:34:24 F Unable to calculate: Post BUN lab result is unknown stdKT/V Total 2023-12-31 00:34:24 F Unable to calculate: Post BUN lab result is unknown Total Kt/V 2023-12-31 00:34:24 F Unable to calculate: Post BUN lab result is unknown spKt/V 2023-12-31 00:34:24 F Unable to calculate: Post BUN lab result is unknown BLOOD FLOW-QWB 2023-12-31 00:34:24 294 F eKt/V 2023-12-31 00:34:24 F Unable to calculate: Post BUN lab result is unknown Urea nitrogen [Mass/volume] in Serum or Plasma 2023-12-31 00:32:26 91 mg/dL F 9.0-23.0 Creatinine [Mass/volume] in Serum or Plasma 2023-12-16 19:29:17 5.42 mg/dL F 0.5-1.1 stdKt/V (DIAL) 2023-12-05 12:32:54 N/A F CURRENT KRU 2023-12-05 12:32:54 F spKt/V 2023-12-05 12:32:54 1.7 F Total Kt/V 2023-12-05 12:32:54 1.7 F eKt/V 2023-12-05 12:32:54 1.44 F BLOOD FLOW-QWB 2023-12-05 12:32:54 314 F TOTAL HOURS/WEEK DIALYSIS 2023-12-05 12:32:54 10 hrs F Std Renal KT/V 2023-12-05 12:32:54 N/A F stdKT/V Total 2023-12-05 12:32:54 N/A F URR% 2023-12-05 12:32:53 75 % F VM (KT/V MEAN VOL) 2023-12-05 12:32:53 30.3 F WEIGHT (KG) 2023-12-05 12:32:53 105 kg F WEIGHT - PRE DAY 1 2023-12-05 12:32:53 108.3 kg F WEIGHT - POST DAY 1 2023-12-05 12:32:53 105.5 kg F PATIENT AGE 2023-12-05 12:32:53 47 Years F KT/V PRESCRIBED 2023-12-05 12:32:53 1.68 F LENGTH OF DIALYSIS 2023-12-05 12:32:53 210 min F AMPUTATE FACTOR 2023-12-05 12:32:53 0 F BSA QUANG 2023-12-05 12:32:53 1.99 sq m F DIALYZER FLOW-QD 2023-12-05 12:32:53 600 mL/min F VT (KT/V TX VOL) 2023-12-05 12:32:53 31 L F Dialyzer LEO 2023-12-05 12:32:53 1455 Calc F Residual kt/v 2023-12-05 12:32:53 F HEIGHT IN INCHES 2023-12-05 12:32:53 60 Inches F PRESCRIBED DAYS/WEEK 2023-12-05 12:32:53 3 Day/Wk F nPCR 2023-12-05 12:32:53 1.46 G/KG/D F TBW ([place]) 2023-12-05 12:32:53 40.21 Liters F Urea nitrogen [Mass/volume] in Serum or Plasma --post dialysis 2023-12-05 12:31:14 17 mg/dL F 9.0-23.0 Urea nitrogen [Mass/volume] in Serum or Plasma 2023-12-05 06:40:22 69 mg/dL F 9.0-23.0 Creatinine [Mass/volume] in Serum or Plasma 2023-11-15 16:02:17 6.68 mg/dL F 0.5-1.1 Creatinine [Mass/volume] in Serum or Plasma 2023-10-14 19:59:35 6.25 mg/dL F 0.5-1.1 Creatinine [Mass/volume] in Serum or Plasma 2023-09-10 00:19:37 6.19 mg/dL F 0.5-1.1 Creatinine [Mass/volume] in Serum or Plasma 2023-08-12 18:29:40 6.29 mg/dL F 0.5-1.1 WEIGHT (KG) 2023-07-18 19:05:08 104 kg F TOTAL HOURS/WEEK DIALYSIS 2023-07-18 19:05:08 2 hrs F TBW ([place]) 2023-07-18 19:05:08 39.64 Liters F BSA QUANG 2023-07-18 19:05:08 1.98 sq m F CURRENT KRU 2023-07-18 19:05:08 F spKt/V 2023-07-18 19:05:08 0.7 F LENGTH OF DIALYSIS 2023-07-18 19:05:08 120 min F VT (KT/V TX VOL) 2023-07-18 19:05:08 30.5 L F stdKT/V Total 2023-07-18 19:05:08 N/A F URR% 2023-07-18 19:05:08 48 % F BLOOD FLOW-QWB 2023-07-18 19:05:08 199 F WEIGHT - POST DAY 1 2023-07-18 19:05:08 103.2 kg F VM (KT/V MEAN VOL) 2023-07-18 19:05:08 30.5 F AMPUTATE FACTOR 2023-07-18 19:05:08 0 F Std Renal KT/V 2023-07-18 19:05:08 N/A F HEIGHT IN INCHES 2023-07-18 19:05:08 60 Inches F PRESCRIBED DAYS/WEEK 2023-07-18 19:05:08 3 Day/Wk F Total Kt/V 2023-07-18 19:05:08 0.7 F eKt/V 2023-07-18 19:05:08 0.56 F stdKt/V (DIAL) 2023-07-18 19:05:08 N/A F KT/V PRESCRIBED 2023-07-18 19:05:08 0.6 F Residual kt/v 2023-07-18 19:05:08 F DIALYZER FLOW-QD 2023-07-18 19:05:08 600 mL/min F PATIENT AGE 2023-07-18 19:05:08 47 Years F Dialyzer LEO 2023-07-18 19:05:08 1455 Calc F nPCR 2023-07-18 19:05:08 0.43 G/KG/D F WEIGHT - PRE DAY 1 2023-07-18 19:05:08 104.1 kg F Urea nitrogen [Mass/volume] in Serum or Plasma --post dialysis 2023-07-18 19:03:38 45 mg/dL F 9.0-23.0 Creatinine [Mass/volume] in Serum or Plasma 2023-07-18 18:58:33 6.94 mg/dL F 0.5-1.1 Urea nitrogen [Mass/volume] in Serum or Plasma 2023-07-18 18:58:33 86 mg/dL F 9.0-23.0 Anemia Description Draw Date Result/Unit Status Ref Range Result Comments HCT CALC HGBX3 2024-02-10 16:36:33 29.1 % F 37.0-47.0 Hemoglobin [Mass/volume] in Blood 2024-02-10 16:35:23 9.7 g/dL F 12.0-16.0 IRON SATURATION 2024-01-29 09:33:50 33 % F 16.0-46.0 TIBC 2024-01-29 09:33:50 204 ug/dL F 250.0-425.0 Ferritin [Mass/volume] in Serum or Plasma 2024-01-29 08:37:04 352 ng/mL F 10.0-291.0 Iron [Mass/volume] in Serum or Plasma 2024-01-29 08:07:10 67 ug/dL F 50.0-170.0 Iron binding capacity.unsaturated [Mass/volume] in Serum or Plasma 2024-01-29 08:07:10 137 ug/dL F 80.0-375.0 HCT CALC HGBX3 2024-01-28 21:03:07 29.7 % F 37.0-47.0 Erythrocytes [#/volume] in Blood by Automated count 2024-01-28 21:02:10 2.93 x 10'6 cells/uL F 3.85-5.2 Erythrocyte distribution width [Ratio] by Automated count 2024-01-28 21:02:10 14.4 % F 11.0-15.0 Hemoglobin [Mass/volume] in Blood 2024-01-28 21:02:10 9.9 g/dL F 12.0-16.0 MCH [Entitic mass] by Automated count 2024-01-28 21:02:10 33.8 pg F 25.9-34.2 MCHC [Mass/volume] by Automated count 2024-01-28 21:02:10 32.7 g/dL F 29.6-35.3 Hematocrit [Volume Fraction] of Blood by Automated count 2024-01-28 21:02:10 30.3 % F 37.0-47.0 MCV [Entitic volume] by Automated count 2024-01-28 21:02:10 103.4 fL F 80.0-100.0 Platelets [#/volume] in Blood by Automated count 2024-01-28 21:02:10 170 x 10'3 cells/uL F 140.0-450.0 HCT CALC HGBX3 2024-01-14 23:23:47 30.6 % F 37.0-47.0 Erythrocytes [#/volume] in Blood by Automated count 2024-01-14 23:23:09 3.12 x 10'6 cells/uL F 3.85-5.2 Erythrocyte distribution width [Ratio] by Automated count 2024-01-14 23:23:09 14.6 % F 11.0-15.0 Hemoglobin [Mass/volume] in Blood 2024-01-14 23:23:09 10.2 g/dL F 12.0-16.0 MCH [Entitic mass] by Automated count 2024-01-14 23:23:09 32.7 pg F 25.9-34.2 MCHC [Mass/volume] by Automated count 2024-01-14 23:23:09 30.6 g/dL F 29.6-35.3 Hematocrit [Volume Fraction] of Blood by Automated count 2024-01-14 23:23:09 33.3 % F 37.0-47.0 MCV [Entitic volume] by Automated count 2024-01-14 23:23:09 106.8 fL F 80.0-100.0 Platelets [#/volume] in Blood by Automated count 2024-01-14 23:23:09 174 x 10'3 cells/uL F 140.0-450.0 HCT CALC HGBX3 2023-12-30 20:27:39 30 % F 37.0-47.0 Hemoglobin [Mass/volume] in Blood 2023-12-30 20:26:21 10 g/dL F 12.0-16.0 HCT CALC HGBX3 2023-12-17 13:37:02 30.6 % F 37.0-47.0 Erythrocytes [#/volume] in Blood by Automated count 2023-12-17 13:36:14 3.04 x 10'6 cells/uL F 3.85-5.2 Erythrocyte distribution width [Ratio] by Automated count 2023-12-17 13:36:14 15.6 % F 11.0-15.0 Hemoglobin [Mass/volume] in Blood 2023-12-17 13:36:14 10.2 g/dL F 12.0-16.0 MCH [Entitic mass] by Automated count 2023-12-17 13:36:14 33.7 pg F 25.9-34.2 MCHC [Mass/volume] by Automated count 2023-12-17 13:36:14 32.5 g/dL F 29.6-35.3 Hematocrit [Volume Fraction] of Blood by Automated count 2023-12-17 13:36:14 31.5 % F 37.0-47.0 MCV [Entitic volume] by Automated count 2023-12-17 13:36:14 103.7 fL F 80.0-100.0 Platelets [#/volume] in Blood by Automated count 2023-12-17 13:36:14 228 x 10'3 cells/uL F 140.0-450.0 Hemoglobin [Mass/volume] in Blood 2023-12-05 20:40:11 F Recollect - Clot Detected Ferritin [Mass/volume] in Serum or Plasma 2023-11-16 04:01:51 662 ng/mL F 10.0-291.0 HCT CALC HGBX3 2023-11-15 22:46:56 32.7 % F 37.0-47.0 Erythrocytes [#/volume] in Blood by Automated count 2023-11-15 22:46:06 3.39 x 10'6 cells/uL F 3.85-5.2 Erythrocyte distribution width [Ratio] by Automated count 2023-11-15 22:46:06 16.3 % F 11.0-15.0 Hemoglobin [Mass/volume] in Blood 2023-11-15 22:46:06 10.9 g/dL F 12.0-16.0 MCH [Entitic mass] by Automated count 2023-11-15 22:46:06 32.1 pg F 25.9-34.2 MCHC [Mass/volume] by Automated count 2023-11-15 22:46:06 32 g/dL F 29.6-35.3 Hematocrit [Volume Fraction] of Blood by Automated count 2023-11-15 22:46:06 33.9 % F 37.0-47.0 MCV [Entitic volume] by Automated count 2023-11-15 22:46:06 100.2 fL F 80.0-100.0 Platelets [#/volume] in Blood by Automated count 2023-11-15 22:46:06 217 x 10'3 cells/uL F 140.0-450.0 IRON SATURATION 2023-11-15 17:10:15 29 % F 16.0-46.0 TIBC 2023-11-15 17:10:15 252 ug/dL F 250.0-425.0 Iron [Mass/volume] in Serum or Plasma 2023-11-15 17:09:02 73 ug/dL F 50.0-170.0 Iron binding capacity.unsaturated [Mass/volume] in Serum or Plasma 2023-11-15 17:09:02 179 ug/dL F 80.0-375.0 HCT CALC HGBX3 2023-10-15 19:02:54 34.5 % F 37.0-47.0 Erythrocytes [#/volume] in Blood by Automated count 2023-10-15 19:02:31 3.64 x 10'6 cells/uL F 3.85-5.2 Erythrocyte distribution width [Ratio] by Automated count 2023-10-15 19:02:31 15.4 % F 11.0-15.0 Hemoglobin [Mass/volume] in Blood 2023-10-15 19:02:31 11.5 g/dL F 12.0-16.0 MCH [Entitic mass] by Automated count 2023-10-15 19:02:31 31.8 pg F 25.9-34.2 MCHC [Mass/volume] by Automated count 2023-10-15 19:02:31 30.4 g/dL F 29.6-35.3 Hematocrit [Volume Fraction] of Blood by Automated count 2023-10-15 19:02:31 38 % F 37.0-47.0 MCV [Entitic volume] by Automated count 2023-10-15 19:02:31 104.5 fL F 80.0-100.0 Platelets [#/volume] in Blood by Automated count 2023-10-15 19:02:31 198 x 10'3 cells/uL F 140.0-450.0 HCT CALC HGBX3 2023-09-10 03:54:59 32.4 % F 37.0-47.0 Erythrocytes [#/volume] in Blood by Automated count 2023-09-10 03:54:34 3.32 x 10'6 cells/uL F 3.85-5.2 Erythrocyte distribution width [Ratio] by Automated count 2023-09-10 03:54:34 15.7 % F 11.0-15.0 Hemoglobin [Mass/volume] in Blood 2023-09-10 03:54:34 10.8 g/dL F 12.0-16.0 MCH [Entitic mass] by Automated count 2023-09-10 03:54:34 32.6 pg F 25.9-34.2 MCHC [Mass/volume] by Automated count 2023-09-10 03:54:34 32.5 g/dL F 29.6-35.3 Hematocrit [Volume Fraction] of Blood by Automated count 2023-09-10 03:54:34 33.3 % F 37.0-47.0 MCV [Entitic volume] by Automated count 2023-09-10 03:54:34 100.2 fL F 80.0-100.0 Platelets [#/volume] in Blood by Automated count 2023-09-10 03:54:34 226 x 10'3 cells/uL F 140.0-450.0 IRON SATURATION 2023-08-13 06:41:33 17 % F 16.0-46.0 TIBC 2023-08-13 06:41:33 254 ug/dL F 250.0-425.0 Iron [Mass/volume] in Serum or Plasma 2023-08-13 06:39:45 42 ug/dL F 50.0-170.0 Iron binding capacity.unsaturated [Mass/volume] in Serum or Plasma 2023-08-13 06:39:45 212 ug/dL F 80.0-375.0 Ferritin [Mass/volume] in Serum or Plasma 2023-08-13 05:43:39 78 ng/mL F 10.0-291.0 HCT CALC HGBX3 2023-08-13 04:32:29 28.8 % F 37.0-47.0 Erythrocyte distribution width [Ratio] by Automated count 2023-08-13 04:31:39 15.2 % F 11.0-15.0 MCH [Entitic mass] by Automated count 2023-08-13 04:31:39 31.4 pg F 25.9-34.2 MCHC [Mass/volume] by Automated count 2023-08-13 04:31:39 31.7 g/dL F 29.6-35.3 Hematocrit [Volume Fraction] of Blood by Automated count 2023-08-13 04:31:39 30.3 % F 37.0-47.0 MCV [Entitic volume] by Automated count 2023-08-13 04:31:39 99 fL F 80.0-100.0 Platelets [#/volume] in Blood by Automated count 2023-08-13 04:31:39 235 x 10'3 cells/uL F 140.0-450.0 Erythrocytes [#/volume] in Blood by Automated count 2023-08-13 04:31:39 3.06 x 10'6 cells/uL F 3.85-5.2 Hemoglobin [Mass/volume] in Blood 2023-08-13 04:31:39 9.6 g/dL F 12.0-16.0 Ferritin [Mass/volume] in Serum or Plasma 2023-07-19 03:41:19 50 ng/mL F 10.0-291.0 IRON SATURATION 2023-07-18 22:37:17 27 % F 16.0-46.0 TIBC 2023-07-18 22:37:17 257 ug/dL F 250.0-425.0 Iron [Mass/volume] in Serum or Plasma 2023-07-18 22:36:08 70 ug/dL F 50.0-170.0 Iron binding capacity.unsaturated [Mass/volume] in Serum or Plasma 2023-07-18 22:36:08 187 ug/dL F 80.0-375.0 HCT CALC HGBX3 2023-07-18 19:39:00 26.7 % F 37.0-47.0 Erythrocytes [#/volume] in Blood by Automated count 2023-07-18 19:38:30 2.9 x 10'6 cells/uL F 3.85-5.2 Erythrocyte distribution width [Ratio] by Automated count 2023-07-18 19:38:30 14.2 % F 11.0-15.0 Hemoglobin [Mass/volume] in Blood 2023-07-18 19:38:30 8.9 g/dL F 12.0-16.0 MCHC [Mass/volume] by Automated count 2023-07-18 19:38:30 32.3 g/dL F 29.6-35.3 MCH [Entitic mass] by Automated count 2023-07-18 19:38:30 30.8 pg F 25.9-34.2 Hematocrit [Volume Fraction] of Blood by Automated count 2023-07-18 19:38:30 27.6 % F 37.0-47.0 MCV [Entitic volume] by Automated count 2023-07-18 19:38:30 95.3 fL F 80.0-100.0 Platelets [#/volume] in Blood by Automated count 2023-07-18 19:38:30 203 x 10'3 cells/uL F 140.0-450.0 Comorbidities Description Draw Date Result/Unit Status Ref Range Result Comments Hemoglobin A1c/Hemoglobin.total in Blood 2024-01-28 22:59:16 5.2 %A1c F 0.0-5.6 Hemoglobin A1c/Hemoglobin.total in Blood 2023-11-15 23:14:04 5.3 %A1c F 0.0-5.6 Hemoglobin A1c/Hemoglobin.total in Blood 2023-07-18 22:38:21 4.7 %A1c F 0.0-5.6 FluidBP Description Draw Date Result/Unit Status Ref Range Result Comments Sodium [Moles/volume] in Serum or Plasma 2024-01-29 08:07:10 141 mEq/L F 132.0-146.0 Sodium [Moles/volume] in Serum or Plasma 2024-01-14 07:41:56 137 mEq/L F 132.0-146.0 Sodium [Moles/volume] in Serum or Plasma 2023-12-17 06:54:43 135 mEq/L F 132.0-146.0 Sodium [Moles/volume] in Serum or Plasma 2023-11-15 17:09:02 137 mEq/L F 132.0-146.0 Sodium [Moles/volume] in Serum or Plasma 2023-10-15 07:04:01 137 mEq/L F 132.0-146.0 Sodium [Moles/volume] in Serum or Plasma 2023-09-10 06:14:32 139 mEq/L F 132.0-146.0 Sodium [Moles/volume] in Serum or Plasma 2023-08-13 06:39:45 140 mEq/L F 132.0-146.0 Sodium [Moles/volume] in Serum or Plasma 2023-07-18 22:36:08 139 mEq/L F 132.0-146.0 General Description Draw Date Result/Unit Status Ref Range Result Comments Chloride [Moles/volume] in Serum or Plasma 2024-01-29 08:07:10 107 mEq/L F 99.0-109.0 Aspartate aminotransferase [Enzymatic activity/volume] in Serum or Plasma 2024-01-28 23:21:14 11 U/L F 0.0-33.0 Alanine aminotransferase [Enzymatic activity/volume] in Serum or Plasma 2024-01-28 23:21:14 12 U/L F 10.0-49.0 Chloride [Moles/volume] in Serum or Plasma 2024-01-14 07:41:56 104 mEq/L F 99.0-109.0 Aspartate aminotransferase [Enzymatic activity/volume] in Serum or Plasma 2024-01-14 05:21:24 14 U/L F 0.0-33.0 Alanine aminotransferase [Enzymatic activity/volume] in Serum or Plasma 2024-01-14 05:21:24 14 U/L F 10.0-49.0 Chloride [Moles/volume] in Serum or Plasma 2023-12-17 06:54:43 100 mEq/L F 99.0-109.0 Aspartate aminotransferase [Enzymatic activity/volume] in Serum or Plasma 2023-12-16 19:29:17 15 U/L F 0.0-33.0 Alanine aminotransferase [Enzymatic activity/volume] in Serum or Plasma 2023-12-16 19:29:17 12 U/L F 10.0-49.0 Chloride [Moles/volume] in Serum or Plasma 2023-11-15 17:09:02 100 mEq/L F 99.0-109.0 Aspartate aminotransferase [Enzymatic activity/volume] in Serum or Plasma 2023-11-15 16:02:17 26 U/L F 0.0-33.0 Alanine aminotransferase [Enzymatic activity/volume] in Serum or Plasma 2023-11-15 16:02:17 9 U/L F 10.0-49.0 Chloride [Moles/volume] in Serum or Plasma 2023-10-15 07:04:01 105 mEq/L F 99.0-109.0 Aspartate aminotransferase [Enzymatic activity/volume] in Serum or Plasma 2023-10-14 19:59:35 17 U/L F 0.0-33.0 Alanine aminotransferase [Enzymatic activity/volume] in Serum or Plasma 2023-10-14 19:59:35 9 U/L F 10.0-49.0 Chloride [Moles/volume] in Serum or Plasma 2023-09-10 06:14:32 106 mEq/L F 99.0-109.0 Aspartate aminotransferase [Enzymatic activity/volume] in Serum or Plasma 2023-09-10 00:19:37 17 U/L F 0.0-33.0 Alanine aminotransferase [Enzymatic activity/volume] in Serum or Plasma 2023-09-10 00:19:37 15 U/L F 10.0-49.0 Chloride [Moles/volume] in Serum or Plasma 2023-08-13 06:39:45 104 mEq/L F 99.0-109.0 Aspartate aminotransferase [Enzymatic activity/volume] in Serum or Plasma 2023-08-12 18:29:40 9 U/L F 0.0-33.0 Alanine aminotransferase [Enzymatic activity/volume] in Serum or Plasma 2023-08-12 18:29:40 14 U/L F 10.0-49.0 Chloride [Moles/volume] in Serum or Plasma 2023-07-18 22:36:08 113 mEq/L F 99.0-109.0 Aspartate aminotransferase [Enzymatic activity/volume] in Serum or Plasma 2023-07-18 18:58:33 9 U/L F 0.0-33.0 Alanine aminotransferase [Enzymatic activity/volume] in Serum or Plasma 2023-07-18 18:58:33 9 U/L F 10.0-49.0 InfectionVaccination Description Draw Date Result/Unit Status Ref Range Result Comments Basophils/100 leukocytes in Blood by Automated count 2024-01-28 21:02:10 0.3 % F Neutrophils/100 leukocytes in Blood by Automated count 2024-01-28 21:02:10 70.1 % F Monocytes/100 leukocytes in Blood by Automated count 2024-01-28 21:02:10 4.3 % F Eosinophils/100 leukocytes in Blood by Automated count 2024-01-28 21:02:10 3.6 % F Lymphocytes/100 leukocytes in Blood by Automated count 2024-01-28 21:02:10 21.7 % F Leukocytes [#/volume] in Blood by Automated count 2024-01-28 21:02:10 7.2 x 10'3 cells/uL F 4.0-11.0 Basophils [#/volume] in Blood by Automated count 2024-01-28 21:02:10 22 Cells/uL F 0.0-400.0 Eosinophils [#/volume] in Blood by Automated count 2024-01-28 21:02:10 258 Cells/uL F 0.0-700.0 Monocytes [#/volume] in Blood by Automated count 2024-01-28 21:02:10 309 Cells/uL F 0.0-1100.0 Lymphocytes [#/volume] in Blood by Automated count 2024-01-28 21:02:10 1558 Cells/uL F 620.0-3660.0 Neutrophils [#/volume] in Blood by Automated count 2024-01-28 21:02:10 5033 Cells/uL F 2000.0-8800.0 Lymphocytes/100 leukocytes in Blood by Automated count 2024-01-14 23:23:09 22.2 % F Eosinophils/100 leukocytes in Blood by Automated count 2024-01-14 23:23:09 3.3 % F Neutrophils/100 leukocytes in Blood by Automated count 2024-01-14 23:23:09 69.7 % F Basophils/100 leukocytes in Blood by Automated count 2024-01-14 23:23:09 0.5 % F Monocytes/100 leukocytes in Blood by Automated count 2024-01-14 23:23:09 4.4 % F Leukocytes [#/volume] in Blood by Automated count 2024-01-14 23:23:09 6.7 x 10'3 cells/uL F 4.0-11.0 Basophils [#/volume] in Blood by Automated count 2024-01-14 23:23:09 33 Cells/uL F 0.0-400.0 Eosinophils [#/volume] in Blood by Automated count 2024-01-14 23:23:09 220 Cells/uL F 0.0-700.0 Monocytes [#/volume] in Blood by Automated count 2024-01-14 23:23:09 293 Cells/uL F 0.0-1100.0 Lymphocytes [#/volume] in Blood by Automated count 2024-01-14 23:23:09 1479 Cells/uL F 620.0-3660.0 Neutrophils [#/volume] in Blood by Automated count 2024-01-14 23:23:09 4642 Cells/uL F 2000.0-8800.0 Basophils/100 leukocytes in Blood by Automated count 2023-12-17 13:36:16 0.3 % F Monocytes/100 leukocytes in Blood by Automated count 2023-12-17 13:36:16 4.1 % F Neutrophils/100 leukocytes in Blood by Automated count 2023-12-17 13:36:16 70.7 % F Eosinophils/100 leukocytes in Blood by Automated count 2023-12-17 13:36:16 2.4 % F Lymphocytes/100 leukocytes in Blood by Automated count 2023-12-17 13:36:14 22.6 % F Leukocytes [#/volume] in Blood by Automated count 2023-12-17 13:36:14 8.4 x 10'3 cells/uL F 4.0-11.0 Basophils [#/volume] in Blood by Automated count 2023-12-17 13:36:14 25 Cells/uL F 0.0-400.0 Eosinophils [#/volume] in Blood by Automated count 2023-12-17 13:36:14 201 Cells/uL F 0.0-700.0 Monocytes [#/volume] in Blood by Automated count 2023-12-17 13:36:14 344 Cells/uL F 0.0-1100.0 Lymphocytes [#/volume] in Blood by Automated count 2023-12-17 13:36:14 1896 Cells/uL F 620.0-3660.0 Neutrophils [#/volume] in Blood by Automated count 2023-12-17 13:36:14 5932 Cells/uL F 2000.0-8800.0 Lymphocytes/100 leukocytes in Blood by Automated count 2023-11-15 22:46:06 21.3 % F Monocytes/100 leukocytes in Blood by Automated count 2023-11-15 22:46:06 5.2 % F Neutrophils/100 leukocytes in Blood by Automated count 2023-11-15 22:46:06 71 % F Eosinophils/100 leukocytes in Blood by Automated count 2023-11-15 22:46:06 2.3 % F Basophils/100 leukocytes in Blood by Automated count 2023-11-15 22:46:06 0.3 % F Leukocytes [#/volume] in Blood by Automated count 2023-11-15 22:46:06 10.6 x 10'3 cells/uL F 4.0-11.0 Basophils [#/volume] in Blood by Automated count 2023-11-15 22:46:06 32 Cell/uL F 0.0-400.0 Eosinophils [#/volume] in Blood by Automated count 2023-11-15 22:46:06 243 Cell/uL F 0.0-700.0 Monocytes [#/volume] in Blood by Automated count 2023-11-15 22:46:06 549 Cell/uL F 0.0-1100.0 Lymphocytes [#/volume] in Blood by Automated count 2023-11-15 22:46:06 2249 Cell/uL F 620.0-3660.0 Neutrophils [#/volume] in Blood by Automated count 2023-11-15 22:46:06 7498 Cell/uL F 2000.0-8800.0 Leukocytes [#/volume] in Blood by Automated count 2023-10-15 19:02:31 8.8 x 10'3 cells/uL F 4.0-11.0 Basophils [#/volume] in Blood by Automated count 2023-10-15 19:02:31 35 Cell/uL F 0.0-400.0 Eosinophils [#/volume] in Blood by Automated count 2023-10-15 19:02:31 202 Cell/uL F 0.0-700.0 Monocytes [#/volume] in Blood by Automated count 2023-10-15 19:02:31 255 Cell/uL F 0.0-1100.0 Lymphocytes [#/volume] in Blood by Automated count 2023-10-15 19:02:31 1335 Cell/uL F 620.0-3660.0 Neutrophils [#/volume] in Blood by Automated count 2023-10-15 19:02:31 6963 Cell/uL F 2000.0-8800.0 Lymphocytes/100 leukocytes in Blood by Automated count 2023-10-15 19:02:31 15.2 % F Monocytes/100 leukocytes in Blood by Automated count 2023-10-15 19:02:31 2.9 % F Eosinophils/100 leukocytes in Blood by Automated count 2023-10-15 19:02:31 2.3 % F Basophils/100 leukocytes in Blood by Automated count 2023-10-15 19:02:31 0.4 % F Neutrophils/100 leukocytes in Blood by Automated count 2023-10-15 19:02:31 79.3 % F Lymphocytes/100 leukocytes in Blood by Automated count 2023-09-10 03:54:34 14.9 % F Monocytes/100 leukocytes in Blood by Automated count 2023-09-10 03:54:34 3.1 % F Eosinophils/100 leukocytes in Blood by Automated count 2023-09-10 03:54:34 2.6 % F Basophils/100 leukocytes in Blood by Automated count 2023-09-10 03:54:34 0.7 % F Neutrophils/100 leukocytes in Blood by Automated count 2023-09-10 03:54:34 78.6 % F Leukocytes [#/volume] in Blood by Automated count 2023-09-10 03:54:34 8.7 x 10'3 cells/uL F 4.0-11.0 Eosinophils [#/volume] in Blood by Automated count 2023-09-10 03:54:34 225 Cell/uL F 0.0-700.0 Basophils [#/volume] in Blood by Automated count 2023-09-10 03:54:34 61 Cell/uL F 0.0-400.0 Monocytes [#/volume] in Blood by Automated count 2023-09-10 03:54:34 268 Cell/uL F 0.0-1100.0 Lymphocytes [#/volume] in Blood by Automated count 2023-09-10 03:54:34 1290 Cell/uL F 620.0-3660.0 Neutrophils [#/volume] in Blood by Automated count 2023-09-10 03:54:34 6807 Cell/uL F 2000.0-8800.0 Monocytes [#/volume] in Blood by Automated count 2023-08-13 04:31:39 346 Cell/uL F 0.0-1100.0 Neutrophils [#/volume] in Blood by Automated count 2023-08-13 04:31:39 6575 Cell/uL F 2000.0-8800.0 Lymphocytes [#/volume] in Blood by Automated count 2023-08-13 04:31:39 1434 Cell/uL F 620.0-3660.0 Lymphocytes/100 leukocytes in Blood by Automated count 2023-08-13 04:31:39 16.6 % F Monocytes/100 leukocytes in Blood by Automated count 2023-08-13 04:31:39 4 % F Neutrophils/100 leukocytes in Blood by Automated count 2023-08-13 04:31:39 76.1 % F Basophils/100 leukocytes in Blood by Automated count 2023-08-13 04:31:39 0.5 % F Eosinophils/100 leukocytes in Blood by Automated count 2023-08-13 04:31:39 2.8 % F Leukocytes [#/volume] in Blood by Automated count 2023-08-13 04:31:39 8.6 x 10'3 cells/uL F 4.0-11.0 Basophils [#/volume] in Blood by Automated count 2023-08-13 04:31:39 43 Cell/uL F 0.0-400.0 Eosinophils [#/volume] in Blood by Automated count 2023-08-13 04:31:39 242 Cell/uL F 0.0-700.0 Lymphocytes/100 leukocytes in Blood by Automated count 2023-07-18 19:38:30 11.1 % F Monocytes/100 leukocytes in Blood by Automated count 2023-07-18 19:38:30 3.3 % F Eosinophils/100 leukocytes in Blood by Automated count 2023-07-18 19:38:30 4 % F Basophils/100 leukocytes in Blood by Automated count 2023-07-18 19:38:30 0.3 % F Neutrophils/100 leukocytes in Blood by Automated count 2023-07-18 19:38:30 81.3 % F Leukocytes [#/volume] in Blood by Automated count 2023-07-18 19:38:30 7.3 x 10'3 cells/uL F 4.0-11.0 Basophils [#/volume] in Blood by Automated count 2023-07-18 19:38:30 22 Cell/uL F 0.0-400.0 Eosinophils [#/volume] in Blood by Automated count 2023-07-18 19:38:30 294 Cell/uL F 0.0-700.0 Monocytes [#/volume] in Blood by Automated count 2023-07-18 19:38:30 242 Cell/uL F 0.0-1100.0 Lymphocytes [#/volume] in Blood by Automated count 2023-07-18 19:38:30 815 Cell/uL F 620.0-3660.0 Neutrophils [#/volume] in Blood by Automated count 2023-07-18 19:38:30 5967 Cell/uL F 2000.0-8800.0 Medication Description Draw Date Result/Unit Status Ref Range Result Comments INTNL NORMALIZED RATIO 2024-02-17 17:14:13 1.4 Calc F 0.9-1.1 INTNL NORMALIZED RATIO 2024-02-13 19:55:59 F RECOLLECT - OUTDATED SPECIMEN MineralBone Disorder Description Draw Date Result/Unit Status Ref Range Result Comments CA CORRECTED 2024-02-11 06:25:06 7.2 mg/dL F Calcium [Mass/volume] in Serum or Plasma 2024-02-11 06:18:00 7 mg/dL F 8.7-10.4 CA CORRECTED 2024-02-04 04:47:31 7.5 mg/dL F Calcium [Mass/volume] in Serum or Plasma 2024-02-04 04:34:42 7.3 mg/dL F 8.7-10.4 CA CORRECTED 2024-01-29 09:35:12 7.7 mg/dL F CA/PHOS PRODUCT 2024-01-29 09:33:50 43.5 Calc F 21.0-53.0 CA*PO4 CORRCTD 2024-01-29 09:33:50 44.9 Calc F 21.0-53.0 Phosphate [Mass/volume] in Serum or Plasma 2024-01-29 08:07:10 5.8 mg/dL F 2.4-5.1 Calcium [Mass/volume] in Serum or Plasma 2024-01-29 08:07:10 7.5 mg/dL F 8.7-10.4 Alkaline phosphatase [Enzymatic activity/volume] in Serum or Plasma 2024-01-28 23:21:14 89 U/L F 46.0-116.0 Parathyrin.intact [Mass/volume] in Serum or Plasma 2024-01-28 17:44:23 579 pg/mL F 18.0-80.0 CA CORRECTED 2024-01-14 07:48:31 7.8 mg/dL F Calcium [Mass/volume] in Serum or Plasma 2024-01-14 07:41:56 7.7 mg/dL F 8.7-10.4 Alkaline phosphatase [Enzymatic activity/volume] in Serum or Plasma 2024-01-14 05:21:24 109 U/L F 46.0-116.0 CA CORRECTED 2023-12-31 07:55:05 7.5 mg/dL F CA*PO4 CORRCTD 2023-12-31 07:54:15 50.3 Calc F 21.0-53.0 CA/PHOS PRODUCT 2023-12-31 07:54:15 50.3 Calc F 21.0-53.0 Calcium [Mass/volume] in Serum or Plasma 2023-12-31 07:36:03 7.5 mg/dL F 8.7-10.4 Parathyrin.intact [Mass/volume] in Serum or Plasma 2023-12-31 06:06:21 318 pg/mL F 18.0-80.0 Phosphate [Mass/volume] in Serum or Plasma 2023-12-31 00:32:26 6.7 mg/dL F 2.4-5.1 Alkaline phosphatase [Enzymatic activity/volume] in Serum or Plasma 2023-12-16 19:29:17 98 U/L F 46.0-116.0 Parathyrin.intact [Mass/volume] in Serum or Plasma 2023-12-06 00:24:19 446 pg/mL F 18.0-80.0 CA CORRECTED 2023-12-05 07:38:28 8.2 mg/dL F CA*PO4 CORRCTD 2023-12-05 07:05:28 48.4 Calc F 21.0-53.0 CA/PHOS PRODUCT 2023-12-05 07:05:28 48.4 Calc F 21.0-53.0 Calcium [Mass/volume] in Serum or Plasma 2023-12-05 07:01:53 8.2 mg/dL F 8.7-10.4 Phosphate [Mass/volume] in Serum or Plasma 2023-12-05 06:40:22 5.9 mg/dL F 2.4-5.1 CA CORRECTED 2023-11-15 17:13:24 8 mg/dL F Calcium [Mass/volume] in Serum or Plasma 2023-11-15 17:09:02 8 mg/dL F 8.7-10.4 Alkaline phosphatase [Enzymatic activity/volume] in Serum or Plasma 2023-11-15 16:02:17 91 U/L F 46.0-116.0 Alkaline phosphatase [Enzymatic activity/volume] in Serum or Plasma 2023-10-14 19:59:35 83 U/L F 46.0-116.0 Alkaline phosphatase [Enzymatic activity/volume] in Serum or Plasma 2023-09-10 00:19:37 82 U/L F 46.0-116.0 Alkaline phosphatase [Enzymatic activity/volume] in Serum or Plasma 2023-08-12 18:29:40 79 U/L F 46.0-116.0 Parathyrin.intact [Mass/volume] in Serum or Plasma 2023-07-19 03:41:19 625 pg/mL F 18.0-80.0 25-Hydroxyvitamin D3+25-Hydroxyvitamin D2 [Mass/volume] in Serum or Plasma 2023-07-19 03:41:05 6.7 ng/mL F CA CORRECTED 2023-07-18 22:39:07 8.4 mg/dL F CA/PHOS PRODUCT 2023-07-18 22:37:17 41.5 Calc F 21.0-53.0 CA*PO4 CORRCTD 2023-07-18 22:37:17 42 Calc F 21.0-53.0 Calcium [Mass/volume] in Serum or Plasma 2023-07-18 22:36:08 8.3 mg/dL F 8.7-10.4 Phosphate [Mass/volume] in Serum or Plasma 2023-07-18 18:58:33 5 mg/dL F 2.4-5.1 Alkaline phosphatase [Enzymatic activity/volume] in Serum or Plasma 2023-07-18 18:58:33 69 U/L F 46.0-116.0 Nutrition Description Draw Date Result/Unit Status Ref Range Result Comments Potassium [Moles/volume] in Serum or Plasma 2024-01-29 08:07:10 4.5 mEq/L F 3.5-5.5 GLOBULIN 2024-01-28 23:22:23 2.9 g/dL F 0.9-5.0 A/G RATIO 2024-01-28 23:22:23 1.3 Calc F 1.0-2.5 Albumin [Mass/volume] in Serum or Plasma by Bromocresol green (BCG) dye binding method 2024-01-28 23:21:14 3.7 g/dL F 3.4-4.8 Protein [Mass/volume] in Serum or Plasma 2024-01-28 23:21:14 6.6 g/dL F 5.7-8.2 Bicarbonate [Moles/volume] in Serum or Plasma 2024-01-28 23:21:14 22 mEq/L F 20.0-31.0 Glucose [Mass/volume] in Serum or Plasma 2024-01-28 23:21:14 96 mg/dL F 70.0-99.0 Lactate dehydrogenase [Enzymatic activity/volume] in Serum or Plasma 2024-01-28 23:21:14 226 U/L F 120.0-246.0 Potassium [Moles/volume] in Serum or Plasma 2024-01-14 07:41:56 4.5 mEq/L F 3.5-5.5 GLOBULIN 2024-01-14 05:22:44 2.6 g/dL F 0.9-5.0 A/G RATIO 2024-01-14 05:22:44 1.5 Calc F 1.0-2.5 Albumin [Mass/volume] in Serum or Plasma by Bromocresol green (BCG) dye binding method 2024-01-14 05:21:24 3.9 g/dL F 3.4-4.8 Protein [Mass/volume] in Serum or Plasma 2024-01-14 05:21:24 6.5 g/dL F 5.7-8.2 Bicarbonate [Moles/volume] in Serum or Plasma 2024-01-14 05:21:24 21 mEq/L F 20.0-31.0 Glucose [Mass/volume] in Serum or Plasma 2024-01-14 05:21:24 105 mg/dL F 70.0-99.0 Lactate dehydrogenase [Enzymatic activity/volume] in Serum or Plasma 2024-01-14 05:21:24 244 U/L F 120.0-246.0 Potassium [Moles/volume] in Serum or Plasma 2023-12-17 06:54:43 4.3 mEq/L F 3.5-5.5 GLOBULIN 2023-12-16 19:29:20 2.9 g/dL F 0.9-5.0 A/G RATIO 2023-12-16 19:29:20 1.4 Calc F 1.0-2.5 Albumin [Mass/volume] in Serum or Plasma by Bromocresol green (BCG) dye binding method 2023-12-16 19:29:17 4 g/dL F 3.4-4.8 Protein [Mass/volume] in Serum or Plasma 2023-12-16 19:29:17 6.9 g/dL F 5.7-8.2 Bicarbonate [Moles/volume] in Serum or Plasma 2023-12-16 19:29:17 21 mEq/L F 20.0-31.0 Glucose [Mass/volume] in Serum or Plasma 2023-12-16 19:29:17 94 mg/dL F 70.0-99.0 Lactate dehydrogenase [Enzymatic activity/volume] in Serum or Plasma 2023-12-16 19:29:17 194 U/L F 120.0-246.0 Potassium [Moles/volume] in Serum or Plasma 2023-11-15 17:09:02 4.2 mEq/L F 3.5-5.5 GLOBULIN 2023-11-15 16:02:22 2.8 g/dL F 0.9-5.0 A/G RATIO 2023-11-15 16:02:22 1.4 Calc F 1.0-2.5 Albumin [Mass/volume] in Serum or Plasma by Bromocresol green (BCG) dye binding method 2023-11-15 16:02:17 4 g/dL F 3.4-4.8 Protein [Mass/volume] in Serum or Plasma 2023-11-15 16:02:17 6.8 g/dL F 5.7-8.2 Bicarbonate [Moles/volume] in Serum or Plasma 2023-11-15 16:02:17 23 mEq/L F 20.0-31.0 Glucose [Mass/volume] in Serum or Plasma 2023-11-15 16:02:17 89 mg/dL F 70.0-99.0 Lactate dehydrogenase [Enzymatic activity/volume] in Serum or Plasma 2023-11-15 16:02:17 240 U/L F 120.0-246.0 Potassium [Moles/volume] in Serum or Plasma 2023-10-15 07:04:01 4.4 mEq/L F 3.5-5.5 A/G RATIO 2023-10-14 20:00:12 1.4 Calc F 1.0-2.5 GLOBULIN 2023-10-14 20:00:12 2.8 g/dL F 0.9-5.0 Albumin [Mass/volume] in Serum or Plasma by Bromocresol green (BCG) dye binding method 2023-10-14 19:59:35 3.9 g/dL F 3.4-4.8 Protein [Mass/volume] in Serum or Plasma 2023-10-14 19:59:35 6.7 g/dL F 5.7-8.2 Bicarbonate [Moles/volume] in Serum or Plasma 2023-10-14 19:59:35 16 mEq/L F 20.0-31.0 Glucose [Mass/volume] in Serum or Plasma 2023-10-14 19:59:35 141 mg/dL F 70.0-99.0 Lactate dehydrogenase [Enzymatic activity/volume] in Serum or Plasma 2023-10-14 19:59:35 257 U/L F 120.0-246.0 Potassium [Moles/volume] in Serum or Plasma 2023-09-10 06:14:32 4.5 mEq/L F 3.5-5.5 GLOBULIN 2023-09-10 00:20:29 2.6 g/dL F 0.9-5.0 A/G RATIO 2023-09-10 00:20:29 1.5 Calc F 1.0-2.5 Albumin [Mass/volume] in Serum or Plasma by Bromocresol green (BCG) dye binding method 2023-09-10 00:19:37 3.8 g/dL F 3.4-4.8 Protein [Mass/volume] in Serum or Plasma 2023-09-10 00:19:37 6.4 g/dL F 5.7-8.2 Bicarbonate [Moles/volume] in Serum or Plasma 2023-09-10 00:19:37 21 mEq/L F 20.0-31.0 Glucose [Mass/volume] in Serum or Plasma 2023-09-10 00:19:37 139 mg/dL F 70.0-99.0 Lactate dehydrogenase [Enzymatic activity/volume] in Serum or Plasma 2023-09-10 00:19:37 219 U/L F 120.0-246.0 Potassium [Moles/volume] in Serum or Plasma 2023-08-13 06:39:45 4.8 mEq/L F 3.5-5.5 GLOBULIN 2023-08-12 18:30:05 2.6 g/dL F 0.9-5.0 A/G RATIO 2023-08-12 18:30:05 1.6 Calc F 1.0-2.5 Bicarbonate [Moles/volume] in Serum or Plasma 2023-08-12 18:29:40 23 mEq/L F 20.0-31.0 Glucose [Mass/volume] in Serum or Plasma 2023-08-12 18:29:40 111 mg/dL F 70.0-99.0 Lactate dehydrogenase [Enzymatic activity/volume] in Serum or Plasma 2023-08-12 18:29:40 215 U/L F 120.0-246.0 Albumin [Mass/volume] in Serum or Plasma by Bromocresol green (BCG) dye binding method 2023-08-12 18:29:40 4.1 g/dL F 3.4-4.8 Protein [Mass/volume] in Serum or Plasma 2023-08-12 18:29:40 6.7 g/dL F 5.7-8.2 Folate [Mass/volume] in Serum or Plasma 2023-07-19 03:41:05 8.8 ng/mL F 5.5-16.0 Cobalamin (Vitamin B12) [Mass/volume] in Serum or Plasma 2023-07-19 03:41:05 417 pg/mL F 211.0-911.0 Potassium [Moles/volume] in Serum or Plasma 2023-07-18 22:36:08 5.4 mEq/L F 3.5-5.5 GLOBULIN 2023-07-18 18:59:21 2.6 g/dL F 0.9-5.0 A/G RATIO 2023-07-18 18:59:21 1.5 Calc F 1.0-2.5 CHOL/HDL RATIO 2023-07-18 18:59:21 4.3 Calc F 3.3-5.0 VLDL-CHOL(CALC) 2023-07-18 18:59:21 41 mg/dL F 0.0-29.0 LDL-CHOLESTEROL 2023-07-18 18:59:21 98 mg/dL F 0.0-99.0 Albumin [Mass/volume] in Serum or Plasma by Bromocresol green (BCG) dye binding method 2023-07-18 18:58:33 3.9 g/dL F 3.4-4.8 Protein [Mass/volume] in Serum or Plasma 2023-07-18 18:58:33 6.5 g/dL F 5.7-8.2 Cholesterol [Mass/volume] in Serum or Plasma 2023-07-18 18:58:33 181 mg/dL F 0.0-199.0 Protein [Mass/volume] in Serum or Plasma 2023-07-18 18:58:33 206 mg/dL F 0.0-149.0 Bicarbonate [Moles/volume] in Serum or Plasma 2023-07-18 18:58:33 16 mEq/L F 20.0-31.0 Cholesterol in HDL [Mass/volume] in Serum or Plasma 2023-07-18 18:58:33 42 mg/dL F 40.0-60.0 Glucose [Mass/volume] in Serum or Plasma 2023-07-18 18:58:33 132 mg/dL F 70.0-99.0 Lactate dehydrogenase [Enzymatic activity/volume] in Serum or Plasma 2023-07-18 18:58:33 239 U/L F 120.0-246.0 Encounters No encounter information to report Immunizations Ordered Immunization Name Filled Immunization Name Date Status Comments Refusal Reason TST-PPD intradermal 2023-07-28 19:41:32 TST-PPD intradermal 2023-07-21 21:14:41 Plan of Treatment Planned Activity Provider Planned Date Details Commen ts Diagnostic Test Pending Carrington Perrin 2023-07-20 05:00:00 Hemoglobin [Mass/volume] in Blood [code = 718-7] Diagnostic Test Pending Carrington Toright 2023-07-16 13:41:38 25-Hydroxyvitamin D3+25-Hydroxyvitamin D2 [Mass/volume] in Serum or Plasma [code = 34208-2] Future Scheduled Test Carrington Toright 2024-02-23 06:00:00 Calcium [Mass/volume] in Serum or Plasma [code = 92210-1] Diagnostic Test Pending Carrington Toright 2023-08-06 10:17:03 Alanine aminotransferase [Enzymatic activity/volume] in Serum or Plasma [code = 1742-6] Diagnostic Test Pending Carrington Aleks Toright 2023-07-16 13:40:58 Cobalamin (Vitamin B12) [Mass/volume] in Serum or Plasma [code = 2132-9] Diagnostic Test Pending Carrington Toright 2023-10-19 06:24:48 Ferritin [Mass/volume] in Serum or Plasma [code = 2276-4] Diagnostic Test Pending Carrington Toright 2023-07-16 13:40:37 Folate [Mass/volume] in Serum or Plasma [code = 2284-8] Diagnostic Test Pending Carrington Aleks Toright 2023-07-19 05:00:00 Parathyrin.intact [Mass/volume] in Serum or Plasma [code = 2731-8] Diagnostic Test Pending Carrington Toright 2023-07-16 13:39:56 Potassium [Moles/volume] in Serum or Plasma [code = 2823-3] Diagnostic Test Pending Carrington Toright 2023-07-16 13:39:33 Hemoglobin A1c/Hemoglobin.total in Blood [code = 4548-4] Diagnostic Test Pending Carrington Toright 2023-07-16 13:34:37 Sodium [Moles/volume] in Serum or Plasma [code = 2951-2] Diagnostic Test Pending Carrington Toright 2023-07-16 13:38:44 Glucose [Mass/volume] in Serum or Plasma [code = 2345-7] Diagnostic Test Pending Carrington Aleks Toright 2023-07-16 13:31:40 Creatinine [Mass/volume] in Serum or Plasma [code = 2160-0] Diagnostic Test Pending Carrington Perrin [facility] 2024-02-13 11:33:29 In-Center Hemodialysis Treatment [code = TEN066]
--- OUTSIDE RECORDS SUMMARY | 2024-02-20 23:56 | XMS_ITS | Clinical Summary ---
Author Organization [employer] [facility] Address [place], [place] [address] Care Team Providers Care Longwall Foreman Name Role Phone Mayuri Corcoran MD Primary Care Provider Allergies No known active allergies Medications lisinopril (PRINIVIL; ZESTRIL) 20 mg tabletIndication s:HTN (hypertension) Take 1 tablet by mouth once [...] Answer Date Recorded PHQ-2 Score 1 07/29/2018 Comments No Sex and Gender Information Value Date Recorded Sex Assigned at Not on file Legal Sex Female 5:42 AM REAL ESTATE SERVICES ADMINISTRATOR Gender Identity Not on file Sexual Orientation Not on file 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 Not on file Not on file No t on file Obstetrics History Para Term AB IAB SAB Ectopic Multiple Livin g Live Births 4 4 Date Outcome GA Total Labor Labor/2nd/3rd Weight Sex Type Anes PTL Adeline A1 A5 Name Clin Last Filed Vital Signs Vital Sign Reading Time Taken Comments Blood Pressure 137/83 08/12/2018 10:08 AM CDT Pulse 65 08/12/2018 10:08 AM CDT Temperature 36.8 C (98.2 F) 03/25/2017 8:14 AM REAL ESTATE SERVICES ADMINISTRATOR Respiratory Rate - - Oxygen Saturation 97% [...] Completed 05/10/2016, 03/08/2009 Pneumococcal series for age 6-49 Aged Out No longer eligible based on patient's age to complete this topic Procedures Procedure Name Priority Date/Time Associated Diagnosis Comments LIPID PANEL W REFLEX MEASURED LDL Routine 07/29/2018 8:31 AM CDT Lipid screening FAMILY LAW ATTORNEY THIN PREP PAP SCREEN IMAGED Routine 07/29/2018 8:05 AM CDT Screening for malignant neoplasm of cervix XR MAMMO BILAT SCREENING Routine 03/07/2016 10:12 AM REAL ESTATE SERVICES ADMINISTRATOR Visit for screening mammogram from Last 3 Months or Most Recently Relevant to Health Maintenance Results * (ABNORMAL) LIPID PANEL W REFLEX MEASURED LDL [[id number]] (07/29/2018 8:31 AM CDT) CHOLESTEROL,TOTAL 172 100 - 199 mg/dL 07/29/2018 1:47 PM CDT [facility] TRIGLYCERIDES 172(H) <150 mg/dL 07/29/2018 1:47 PM CDT [facility] [employer] HDL CHOLESTEROL 34(L) >40 mg/dL 9 1:47 PM CDT [facility] NON-HDL CHOLESTEROL 138 <145 mg/dl 07/29/2018 1:47 PM CDT [facility] [employer] [facility] CHOL/HDL RATIO 5.06(H) <4.50 07/29/2018 1:47 PM CDT [facility] LDL CHOLESTEROL 104 <=130 mg/dL 07/29/2018 1:47 PM CDT [facility] [employer] PROVIDER ORDERED STATUS RANDOM 07/29/2018 1:47 PM CDT [facility] Blood BLOOD SPECIMEN / Unknown Butterfly / Unknown 07/29/2018 8:31 AM CDT 07/29/2018 8:31 AM CDT us Mayuri Corcoran MD CHEMISTRY Final Resul t [facility] [address] [place] [address], [place] * FAMILY LAW ATTORNEY THIN PREP PAP SCREEN IMAGED [[id number]] (07/29/2018 8:05 AM CDT) Case Report Gynecologic Cytology Report Case: [id number] Authorizing Provider: Mayuri Corcoran MD Collected: 07/29/2018 0805 Ordering Location: [facility] Received: 07/29/2018 0831 Clinic First Screen: Jasen Paula Pathologist: Molina Arias Jr., MD Specimen: FAMILY LAW ATTORNEY ThinPrep Vial Screening, Cervical 08/05/2018 6:40 AM CDT [facility] [employer] [facility] INTERPRETATION/ RESULT NEGATIVE FOR INTRAEPITHELIAL LESION OR MALIGNANCY (NIL) (none) 08/05/2018 6:40 AM CDT [facility] IMEN ADEQUACY Satisfactory for evaluation Endocervical component present 08/05/2018 6:40 AM CDT [facility] [employer] [facility] HPV REQUEST HPV and PAP 08/05/2018 6:40 AM CDT [facility] [employer] [facility] Date of LMP 07/11/2018 08/05/2018 6:40 AM CDT [facility] Last Pap Date 10/02/11 08/05/2018 6:40 AM CDT [facility] Last Pap Result NIL 9 6:40 AM CDT [facility] Abnormal Pap or Dongola Bx in last 5 years No 08/05/2018 6:40 AM CDT [facility] Menstrual Status Regular Periods 08/05/2018 6:40 AM CDT [facility] [employer] [facility] Dongola Bx Done Today No 08/05/2018 6:40 AM CDT [facility] Additional Information None given 08/05/2018 6:40 AM CDT [facility] [employer] [facility] Automated Review Successful 08/05/2018 6:40 AM CDT [facility] Comment:Specimen processed s uccessfully by automated business department chair device, ThinPrep Imaging System, [employer] ANCILLARY TESTING FAMILY LAW ATTORNEY HPV Ordered, Please see separate report 08/05/2018 6:40 AM CDT [facility] Note The pap test is a screening technique, not a diagnostic procedure. It is used primarily to screen for squamous cancers and precursor lesions. Published studies have shown that it is subject to both false negative and false positive results. The pap test should not be used as the sole means to diagnose or exclude pre-malignant and malignant lesions. Cytology is screened and interpreted at [facility] - [address], [place] [address] and [facility] - [address]; [place] [address] and [facility] - [address]; [place] [address] and [facility] [address]; [place] [address] 08/05/2018 6:40 AM CDT [facility] Other (Cervical) Non-Blood / Unknown 07/29/2018 8:05 AM CDT 07/29/2018 8:31 AM CDT us Mayuri Corcoran MD PATHOLOGY/CYTOLOGY Final Re sult [facility] [address] [place] [address], [place] * XR MAMMO BILAT SCREENING (03/07/2016 10:12 AM REAL ESTATE SERVICES ADMINISTRATOR) Anatomical Region Laterality Modality BREASTS, Breast Left, Breast Right Bilateral Mammography Impressions 03/07/2016 12:39 PM REAL ESTATE SERVICES ADMINISTRATOR There is no radiographic evidence for malignancy. Recommend annual mammograms. A lay language report of this examination will be provided to the patient. MAMMOGRAM ASSESSMENT: ACR 2 Benign Narrative 03/07/2016 12:39 PM REAL ESTATE SERVICES ADMINISTRATOR XR MAMMO BILAT SCREENING [[id number]] CLINICAL HISTORY: This is an asymptomatic 40 y.o. patient. INDICATION FOR EXAM: Mammogram Screening. TECHNIQUE: CC & MLO views were obtained. This digital study was evaluated with the assistance of Computer-Aided Detection. COMPARISON FILMS: This is a baseline study. FINDINGS: Mammographically, the breast tissue is almost entirely fat. No suspicious masses or microcalcifications. Intramammary lymph node within left breast. Yury Hathaway MD MAMMO Final Resu lt from Last 3 Months or Most Recently Relevant to Health Maintenance Insurance [facility] Care Teams Longwall Foreman Relationship Specialty Start Date End Date [place] [address] PCP - General Family Practice 09/15/18
--- OUTSIDE RECORDS SUMMARY | 2024-02-20 23:57 | XMS_ITS | Encounter Summary ---
Author Organization [facility] Address [address] [place] [id number] Care Team Providers Care Oil Well Shooter Name Role Phone None Reported, Pcp Primary Care Provider Unavail able Encounter Details Date Type Department Care Team (Late st Contact Info) Description 02/06/2024 Documentation Division of Nephrology and Hypertension, [facility], in [place], [place] [address] [place] [phone] Nicholas Tracey P, MAGY, C.N.P., M.S.N. [address] [place] [phone] Social History Tobacco Use Types Packs/Day Years Used Date Smoking Tobacco: Never Smokeless Tobacco: Never Alcohol Use Standard Drinks/Week Comments Never 0 (1 standard drink = 0.6 oz pur e alcohol) [facility] Utilities Answer Date Recorded In the past 12 months has e [employer]yp[employer], gas, oil, or water [employer] threatened to shut off services in your [...] your living situation today? I have a [facility] place to live 11/07/2023 Comments No Sex and Gender Information Value Date Recorded Sex Assigned at Female 03/13/2023 1:38 PM TEXTILE ARTIST Legal Sex Female 10:08 PM TEXTILE ARTIST Gender Identity Female 03/13/2023 1:42 PM TEXTILE ARTIST Sexual Orientation Straight 03/13/2023 1: 42 PM TEXTILE ARTIST documented as of this encounter Progress Notes * Nicholas Tracey, TILE MASON, C.N.P., M.S.N. - 02/06/2024 7:31 AM CST Ms. 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 She is maintained on [facility] hemodialysis at [facility] on Friday,Friday and Friday afternoon session. Her right IJ tunneled hemodialysis catheter was thrombosed t erickson. Nursing not able to flush the catheter and initiate her dialysis today despite alteplase in dwell this morning. She was holding her Warfarin 2 mg daily for 5 days because she had her left upper extremity AV fistula creation yesterday. She is agreeable to go to [facility] in [place] for a right IJ tunneled hemodialysis catheter exchange today. She did not have her breakfast this morning. Charge nurse at [facility] dialysis unit is coordinating her session of hemodialysis tomorrow 02/06/2024 at [facility] dialysis unit in [place]. . ILE ARTIST documented in this encounter Plan of Treatment Upcoming Encounters Date Type Department Care Team (Latest Contact Info) Description 03/02/2024 10:00 AM TEXTILE ARTIST Telemedicine Department of Patient Education in [address] [phone] Sheree Franz M.D. [address] [place] [phone] 03/05/2024 11:30 AM TEXTILE ARTIST Clinical Communication Virtual Review in [place], [place] 200 [place] [phone] 03/09/2024 6:40 AM TEXTILE ARTIST Lab Department of Laboratory Medicine and Pathology, [place], [place] [address] [place] [phone] Sheree Franz M.D. [address] [place] [phone] 03/09/2024 6:50 AM TEXTILE ARTIST Lab Department of Laboratory Medicine and Pathology, [facility], in [place], [place] [address] [place] [phone] Sheree Franz M.D. [address] [place] [phone] 03/09/2024 7:20 AM TEXTILE ARTIST Ancillary Procedure Department of Cardiovascular Medicine in [place], [place] [address] [place] [phone] Sheree Franz M.D. [address] [place] [phone] 03/09/2024 9:00 AM TEXTILE ARTIST Comprehensive Visit Division of Endocrinology in [place], [place] [address] [place] [phone] Jo Farris M.D. [address] [place] [phone] 03/09/2024 10:30 AM TEXTILE ARTIST Comprehensive [facility] in [place], [place] [address] [place] [address] Idalia Hand M.D. [address] [place] [phone] 03/09/2024 12:00 PM TEXTILE ARTIST Appointment Department of Radiology, [facility], in [place], [place] [address] [place] [address] Sheree Franz M.D. [address] [place] [phone] 03/09/2024 2:00 PM TEXTILE ARTIST [facility] in [place], [place] [address] [place] [address] Sheree Franz M.D. [address] [place] [phone] 03/09/2024 3:20 PM TEXTILE ARTIST Appointment Department of Cardiovascular Diseases in [place], [place] [address] [place] [phone] Sheree Franz M.D. [address] [place] [phone] 03/10/2024 9:00 AM TEXTILE ARTIST Comprehensive Visit Freddy martin [facility] for Transplantation and Clinical Regeneration in [place], [place] [address] [place] [phone] Shahid Edge M.D. [address] [place] [phone] 03/10/2024 1:30 PM TEXTILE ARTIST Appointment Division of Nephrology and Hypertension, [facility], in [place], [place] [address] [place] [phone] Nicholas Tracey, MAGY, C.N.P., M.S.N. [address] [place] [phone] 03/11/2024 8:00 AM TEXTILE ARTIST Clinical Support [facility] in [place], [place] [address] [place] [phone] Sheree Franz M.D. [address] [place] [phone] Alyse Chang M.SVirginia., L.I.C.S.W. [address] [place] [phone] 03/11/2024 10:00 AM TEXTILE ARTIST Office Visit Freddy Slade [facility] for Transplantation and Clinical Regeneration in [place], [place] [address] [place] [phone] Sheree Franz M.D. [address] [place] [phone] 03/11/2024 11:00 AM TEXTILE ARTIST Comprehensive Visit Freddy Slade [facility] for Transplantation and Clinical Regeneration in [place], [place] [address] [place] [phone] Sheree Franz M.D. [address] [place] [phone] 03/11/2024 1:00 PM TEXTILE ARTIST Nurse Only [facility] in [place], [place] [address] [place] [phone] Sheree Franz M.D. [address] [place] [phone] 03/11/2024 4:00 PM TEXTILE ARTIST Office Visit Freddy Slade [facility] Transplantation and Clinical Regeneration in [place], [place] [address] [place] [phone] Idalia Hand M.D. [address] [place] [phone] 03/23/2024 1:30 PM TEXTILE ARTIST Appointment Department of Radiology, [facility], in [place], [place] [address] [place] [phone] Glen Baker M.D. [address] [place] [phone] Discharge Disposition: Home or Self Care 03/23/2024 3:00 PM TEXTILE ARTIST Nurse Only Division of Nephrology and Hypertension in [place], [place] [address] [place] [phone] Glen Baker M.D. [address] [place] [phone] documented as of this encounter Visit Diagnoses Not on filedocumented in this encounter Care Teams Oil Well Shooter Relationship Specialty Start Date End Date None Reported, Pcp PCP - General Family Medicine 03/10/23 documented as of this encounter
--- OUTSIDE RECORDS SUMMARY | 2024-02-20 23:57 | XMS_ITS | Encounter Summary ---
Author Organization [facility] Address [address] [place] [address] Care Team Providers Care Flow Specialist Name Role Phone None Reported, Pcp Primary Care Provider Unavail able Reason for Visit * Auth/Cert (Routine) Specialty Diagnoses / Procedures Referred By Crow olivo Referred To Contact Diagnoses Chronic Kidney Disease Stage 5 GFR Less Than 15 Dialysis Dependent (HCC) Chronic Kidney Disease Stage 5 GFR Less Than 15 Dialysis Dependent (HCC) [N18.6, Z99.2] Procedures MA ARTERIOVENOUS ANAST OPN DIRECT CREATION FISTULA RADIOCEPHALIC ARTERIOVENOUS Glen Baker M.D. [address] [place] [address] Phone: tel: fax: Referral ID Status Reason Start Date Expiration Date Visits Re quested Visits Authorized [id number] 1 1 Encounter Details Date Type Department Care Team ([facility] Contact Info) Description 02/05/2024 7:45 AM LITHOGRAPHIC PRESS FEEDER - 02/05/2024 11:03 AM LITHOGRAPHIC PRESS FEEDER Surgery [facility] MAIN OR [address] [place] [address] Glen Baker M.D. [address] [place] [address] CREATION FISTULA RADIOCEPHALIC ARTERIOVENOUS Social History Tobacco Use Types Packs/Day Years Used Date Smoking Tobacco: Never Smokeless Tobacco: Never Alcohol Use Standard Drinks/Week Comments Never 0 (1 standard drink = 0.6 oz pur e alcohol) [facility] Utilities Answer Date Recorded In the [...] [facility] to live 11/07/2023 Comments No Sex and Gender Information Value Date Recorded Sex Assigned at Female 03/13/2023 1:38 PM LITHOGRAPHIC PRESS FEEDER Legal Sex Female 10:08 PM LITHOGRAPHIC PRESS FEEDER Gender Identity Female 03/13/2023 1:42 PM LITHOGRAPHIC PRESS FEEDER Sexual Orientation Straight 03/13/2023 1: 42 PM LITHOGRAPHIC PRESS FEEDER documented as of this encounter Last Filed Vital Signs Vital Sign Reading Time Taken Comments Blood Pressure 127/79 02/05/2024 6:35 AM LITHOGRAPHIC PRESS FEEDER Pulse - - Temperature 36.9 C (98.4 F) 02/05/2024 6:35 AM LITHOGRAPHIC PRESS FEEDER Respiratory Rate 14 02/05/2024 6:35 AM LITHOGRAPHIC PRESS FEEDER Oxygen Saturation 96% 02/05/2024 6:35 AM LITHOGRAPHIC PRESS FEEDER Inhaled Oxygen Concentration - - Weight 107 kg (235 lb 7.2 oz) 02/05/2024 6:35 AM LITHOGRAPHIC PRESS FEEDER Height 165.1 cm (5' 5) 02/05/2024 6:35 AM LITHOGRAPHIC PRESS FEEDER Body Mass Index 39.18 02/05/2024 6:35 AM LITHOGRAPHIC PRESS FEEDER documented in this encounter Medications at Time of Discharge B complex-vitamin C-FA (Nephro-Wally) 0.8 mg tablet Take 1 tablet by mouth daily. calcium acetate,phosphat bind, (PHOSLO) 667 mg (169 mg calcium) capsule Take 1 capsule (667 mg total) by mouth 3 (three) times a day with meals. 270 capsule 3 05/13/2023 carvediloL (COREG) 12.5 mg tablet Take 1 tablet (12.5 mg total) by mouth 2 (two) times a day with meals. 180 tablet 3 05/06/2023 ceFAZolin (Ancef) 200 mg/mL injectionIndicati ons:Blood stream infection Infuse 10 mL (2 g total) into a venous catheter 3 (three) times a week Indications: Blood stream infection. Friday--Friday after dialysis. Dialysis center will provide medication. 11/12/2023 sodium bicarbonate 650 mg tablet Take 2 tablets (1,300 mg total) by mouth 2 (two) times a day. 360 tablet 3 05/13/2023 warfarin (Jantoven) 2 mg tablet Take 1 tablet (2 mg total) by mouth daily. 2 mg every evening daily 02/06/2024 documented as of this encounter Progress Notes * Jona Spears APRN, C.N.P. - 02/05/2024 3:21 PM CST CHIEF COMPLAINT/PURPOSE OF VISIT Patient seen in the Outpatient Recovery Unit. HISTORY OF PRESENT ILLNESS Ms. Ramirez is a 48 y.o. female who underwent CREATION FISTULA RADIOCEPHALIC ARTERIOVENOUS under the care of Dr. Baker earlier today. She was seen in the outpatient surgical unit. She has recovered well postoperatively and has met discharge criteria. PHYSICAL EXAMINATION General: Resting comfortably in the bed. No acute distress. Alert and oriented times three. Skin: surgical dressing at left arm, otherwise unremarkable Vessels: Left upper extremity with palpable radial pulse. No thrill palpable.This finding was reviewed with surgical team prior to discharge. IMPRESSION/REPORT/PLAN Ms. Ramirez has recovered well from her surgical procedure. After Visit Summary and Brief Operative Note were given. Postoperative instructions were reviewed. She has the contact information for 's surgical service should any questions or concerns arise. Surgical dressings should remain in place for 48 hours. Ms. Ramirez will return for follow-up in the dialysis access clinic in 6-8 weeks with ultrasound evaluation. OGRAPHIC PRESS FEEDER OGRAPHIC PRESS FEEDER documented in this encounter OR Notes * Op Note - Deepa Dash M.B.B.S., M.D. - 02/05/2024 9:30 AM CST Pre-op Diagnosis Chronic Kidney Disease Stage 5 GFR Less Than 15 Dialysis Dependent (HCC) Post-op Diagnosis Chronic Kidney Disease Stage 5 GFR Less Than 15 Dialysis Dependent (HCC) Rod Straightener A public services assistant actively participated and was necessary for one or more of the following: opening, exposure and visualization, maintaining hemostasis, wound closure resulting in its safe and expeditious completion. Findings As expected Complications None Operative Note Narrative The patient was appropriately identified, informed consent was obtained and he was brought into theoperating room. The procedure was performed with LMA and general anesthesia. The patient was positioned supine on the operating table left extremity was prepped and draped in a sterile manner. Administration preoperative antibiotic was confirmed and a procedural pause was observed. Ultrasound evaluation was performed to confirm adequate caliber of the left radial artery ( 3.1 mm)and cephalic vein (3 mm ) and these were the skin. These were marked and a longitudinal incision was performed between the markings. Segments of the radial artery and cephalic vein dissected in the usual fashion and encircled with vessel loops. The vein was marked on its anterior surface, ligated distally with 3-0 silk and divided. The patient was administered 2000 units of heparin systemically and radial artery was crossclamped. A longitudinal arteriotomy of 4mm was made on the anterior medialsurface of artery. The cephalic vein was spatulated, transposed to the site of the brachial artery and anastomosed to it an end-to-side manner with a continuous suture of 6-0 Prolene. Appropriate fore and backbleeding was performed prior to completing the suture line. On release of clamps the suture line was hemostatic and there was an minimal thrill in the cephalic vein distal to the AV anastomosis, but improvements were noted with time. Radial pulse at the wrist remained normally palpable, only minimally diminished with the AV fistula open. Hemostasis was achieved in the wound and this was closed in layers with continuous 3-0 Vicryl for subcutaneous tissue and subcuticular 4-0 Monocryl for skin. The patient was transferred from the operating room in satisfactory condition. Sponge, instrument and needle counts were correct. Ramesh Fernandez M.D. Cosigned by Glen Baker M.D. at 02/05/2024 12:02 PM LITHOGRAPHIC PRESS FEEDER OGRAPHIC PRESS FEEDER OGRAPHIC PRESS FEEDER * Brief Op Note - Deepa Dash M.B.B.S., M.D. - 02/05/2024 9:30 AM LITHOGRAPHIC PRESS FEEDER Pre-op Diagnosis Chronic Kidney Disease Stage 5 GFR Less Than 15 Dialysis Dependent (HCC) Post-op Diagnosis Chronic Kidney Disease Stage 5 GFR Less Than 15 Dialysis Dependent (HCC) 3 mm cephalic vein and 3.1 radial artery Dc home Ramesh Fernandez M.D. OGRAPHIC PRESS FEEDER documented in this encounter Plan of Treatment Upcoming Encounters Date Type Department Care Team (Latest Contact Info) Description 03/02/2024 10:00 AM LITHOGRAPHIC PRESS FEEDER Telemedicine Department of Patient Education in [address] [phone] Sheree Franz M.D. [address] [place] [phone] 03/05/2024 11:30 AM LITHOGRAPHIC PRESS FEEDER Clinical Communication Virtual Review in [place], [place] [address] [place] [address] 03/09/2024 6:40 AM LITHOGRAPHIC PRESS FEEDER Lab Department of Laboratory Medicine and Pathology, [address] [phone] Sheree Franz M.D. [address] [place] [phone] 03/09/2024 6:50 AM LITHOGRAPHIC PRESS FEEDER Lab Department of Laboratory Medicine and Pathology, [facility] in [place], [place] [address] [place] [phone] Sheree Franz M.D. [address] [place] [phone] 03/09/2024 7:20 AM LITHOGRAPHIC PRESS FEEDER Ancillary Procedure Department of Cardiovascular Medicine in [address] [phone] Sheree Franz M.D. [address] [place] [address] 03/09/2024 9:00 AM LITHOGRAPHIC PRESS FEEDER Comprehensive Visit Division of Endocrinology in [place], [place] [address] [place] [address] Jo Farris M.D. [address] [place] [phone] 03/09/2024 10:30 AM LITHOGRAPHIC PRESS FEEDER Comprehensive Visit Freddy Diaz [facility] in [place], [place] [address] [place] [address] Idalia Hand M.D. [address] [place] [phone] 03/09/2024 12:00 PM LITHOGRAPHIC PRESS FEEDER Appointment Department of Radiology, [facility] in [place], [place] [address] [place] [address] Sheree Franz M.D. [address] [place] [phone] 03/09/2024 2:00 PM LITHOGRAPHIC PRESS FEEDER Virtual Visit Freddy Diaz [facility] in [place], [place] [address] [place] [address] Sheree Franz M.D. [address] [place] [phone] 03/09/2024 3:20 PM LITHOGRAPHIC PRESS FEEDER Appointment Department of Cardiovascular Diseases in [place], [place] [address] [place] [address] Sheree Franz M.D. [address] [place] [phone] 03/10/2024 9:00 AM LITHOGRAPHIC PRESS FEEDER Comprehensive Visit [facility], [place] Transplantation and Clinical Regeneration in [place], [place] [address] [place] [address] Shahid Edge M.D. [address] [place] [phone] 03/10/2024 1:30 PM LITHOGRAPHIC PRESS FEEDER Appointment Division of Nephrology and Hypertension, [facility], in [place], [place] [address] [place] [address] Nicholas Tracey, MAGY, C.N.P., M.S.N. [address] [place] [phone] 03/11/2024 8:00 AM LITHOGRAPHIC PRESS FEEDER Clinical Support [facility], [place], [facility] Transplantation and Clinical Regeneration in [place], [place] [address] [place] [address] Sheree Franz M.D. [address] [place] [phone] Alyse Chang M.S.Fátima, L.I.C.S.W. [address] [place] [phone] 03/11/2024 10:00 AM LITHOGRAPHIC PRESS FEEDER [facility] in [place], [place] [address] [place] [address] Sheree Franz M.D. [address] [place] [phone] 03/11/2024 11:00 AM LITHOGRAPHIC PRESS FEEDER Comprehensive Visit [facility], [place], [facility] Transplantation and Clinical Regeneration in [place], [place] [address] [place] [address] Sheree Franz M.D. [address] [place] [phone] 03/11/2024 1:00 PM LITHOGRAPHIC PRESS FEEDER Nurse Only Freddy martin [facility] Transplantation and Clinical Regeneration in [place], [place] [address] [place] [address] Sheree Franz M.D. [address] [place] [phone] 03/11/2024 4:00 PM LITHOGRAPHIC PRESS FEEDER Office Visit Freddy martin [facility] Transplantation and Clinical Regeneration in [place], [place] [address] [place] [address] Idalia Hand M.D. [address] [place] [phone] 03/23/2024 1:30 PM LITHOGRAPHIC PRESS FEEDER Appointment Department of Radiology, [facility], in [place], [place] [address] [place] [address] Glen Baker M.D. [address] [place] [phone] Discharge Disposition: Home or Self Care 03/23/2024 3:00 PM LITHOGRAPHIC PRESS FEEDER Nurse Only Division of Nephrology and Hypertension in [place], [place] [address] [place] [phone] Glen Baker M.D. [address] [place] [phone] documented as of this encounter Procedures Procedure Name Priority Date/Time Associated Diagnosis Comments CREATION FISTULA RADIOCEPHALIC ARTERIOVENOUS 02/05/2024 8:35 AM LITHOGRAPHIC PRESS FEEDER Chronic Kidney Disease Stage 5 GFR Less Than 15 Dialysis Dependent (HCC) PROTHROMBIN TIME (PT), P STAT 02/05/2024 7:44 AM LITHOGRAPHIC PRESS FEEDER BASIC METABOLIC PANEL, S/P STAT 02/05/2024 7:44 AM LITHOGRAPHIC PRESS FEEDER documented in this encounter Results * Prothrombin Time (PT) (02/05/2024 7:44 AM LITHOGRAPHIC PRESS FEEDER) Pathologist [facility] Prothrombin Time, P 11.5 9.4 - 12.5 sec 02/05/2024 7:58 AM LITHOGRAPHIC PRESS FEEDER STMA INR 1.0 0.9 - 1.1 02/05/2024 7:58 AM LITHOGRAPHIC PRESS FEEDER STMA Comment: ----ADDITIONAL INFORMATION---- Standard intensity warfarin therapeutic range: 2.0 to 3.0 High intensity warfarin therapeutic range: 2.5 to 3.5 Blood (Blood, Venous) 02/05/2024 7:44 AM LITHOGRAPHIC PRESS FEEDER 02/05/2024 7:50 AM LITHOGRAPHIC PRESS FEEDER us Roseline Spears CANDY SPREADER, TRANSPORTATION MAINTENANCE SUPERVISOR LAB BLOOD ADD-ON Alley l Result [facility] [address] [place] [address] * (ABNORMAL) Basic Metabolic Panel (02/05/2024 7:44 AM LITHOGRAPHIC PRESS FEEDER) Pathologist [facility] Potassium, P 4.7 3.6 - 5.2 mmol/L 02/05/2024 8:45 AM LITHOGRAPHIC PRESS FEEDER DTL Sodium, P 137 135 - 145 mmol/L 02/05/2024 8:45 AM LITHOGRAPHIC PRESS FEEDER DTL Chloride, P 100 98 - 107 mmol/L 02/05/2024 8:45 AM LITHOGRAPHIC PRESS FEEDER DTL Bicarbonate, P 21(L) 22 - 29 mmol/L 02/05/2024 8:45 AM LITHOGRAPHIC PRESS FEEDER DTL Anion Gap, P 16(H) 7 - 15 02/05/2024 8:45 AM LITHOGRAPHIC PRESS FEEDER DTL BUN (Blood Urea Nitrogen), P 49(H) 6 - 21 mg/dL 02/05/2024 8:45 AM LITHOGRAPHIC PRESS FEEDER DTL Creatinine 5.72(H) 0.59 - 1.04 mg/dL 02/05/2024 8:45 AM LITHOGRAPHIC PRESS FEEDER DTL Estimated GFR (eGFR) <15(L) >=60 mL/min/BSA 02/05/2024 8:45 AM LITHOGRAPHIC PRESS FEEDER DTL Comment: Estimated GFR calculated using the 2020 CKD_EPI creatinine equation. Calcium, Total, P 8.6 8.6 - 10.0 mg/dL 02/05/2024 8:45 AM LITHOGRAPHIC PRESS FEEDER DTL Glucose, P 103 70 - 140 mg/dL 02/05/2024 8:45 AM LITHOGRAPHIC PRESS FEEDER DTL Blood (Blood, Venous) 02/05/2024 7:44 AM LITHOGRAPHIC PRESS FEEDER 02/05/2024 7:59 AM LITHOGRAPHIC PRESS FEEDER us Roseline Spears CANDY SPREADER, TRANSPORTATION MAINTENANCE SUPERVISOR LAB BLOOD ADD-ON Alley l Result [facility] [address] [place] [address], [facility] [[email or web address]] [place] [address] [place] [address] documented in this encounter Visit Diagnoses Diagnosis Chronic Kidney Disease Stage 5 GFR Less Than 15 Dialysis Dependent (HCC)- Primary Chronic Kidney Disease Stage 5 GFR Less Than 15 Dialysis Dependent (HCC) documented in this encounter Admitting Diagnoses Diagnosis Chronic Kidney Disease Stage 5 GFR Less Than 15 Dialysis Dependent (HCC) documented in this encounter Administered Medications Inactive Administered Medications - up to 3 most recent administrations Medication Order MAR Action Action Date Dose Rate Site chlorhexidine 0.12 % mouthwash 15 mL (Peridex) 15 mL, swish & spit, Once as needed, Chlorhexidine mouthwash (Peridex) should be given if patient did not complete oral care, if completion is greater than 4 hours prior to surgery or procedure start time and they do not have the opportunity to brush their teeth now (or at this time)., Starting on Liv 02/05/24 at 0628, For 1 dose, Pre-Op, Instruct patient to swish entire content of Chlorhexidine 0.12% mouthwash (PERIDEX) 15 mL cup for 30 seconds, then spit, swish & spit. If patient is at risk for aspiration, apply Chlorhexidine 0.12% mouthwash to a swab and gently swab the patient's teeth and gums. Ensure swab is not oversaturated. fentaNYL injection 25 mcg (Sublimaze) 25 mcg, intravenous, Every 2 min PRN, moderate pain or score 4-6 of 10, severe pain or score 7-10 of 10, Starting on Liv 02/05/24 at 1203, PACU (only), Up to maximum total dose of 200 mcg Given 02/05/2024 12:42 PM LITHOGRAPHIC PRESS FEEDER 25 mcg Given 02/05/2024 12:22 PM LITHOGRAPHIC PRESS FEEDER 25 mcg Given 02/05/2024 12:15 PM LITHOGRAPHIC PRESS FEEDER 25 mcg gelatin sponge,absorb-porcine 50 sponge (Gelfoam) As needed, Starting on Liv 02/05/24 at 1100, Intra-Op Given 02/05/2024 11:00 AM LITHOGRAPHIC PRESS FEEDER 1 each Left Arm gentamicin-polymixin B 20 mcg/mL-500 units/mL irrigation bottle (DABS Modified Irrigation) irrigation, Once in surgery, OR use only, Starting on Liv 02/05/24 at 0715, For 1 dose, Intra-Op, *IRRIGATION ONLY* gentamicin-polymixin B 20 mcg/mL-500 units/mL irrigation bottle (DABS Modified Irrigation) As needed, Starting on Liv 02/05/24 at 1117, Intra-Op Given 02/05/2024 11:17 AM LITHOGRAPHIC PRESS FEEDER 250 mL Left Arm granisetron (PF) injection 1 mg (KytriL) 1 mg, intravenous, Once as needed, nausea, vomiting, Starting on Liv 02/05/24 at 1203, For 1 dose, PACU (only), If patient does not respond to ondansetron or haloperidol. (Order of antiemetic administration - ondansetron then haloperidol or droperidol then granisetron) Given 02/05/2024 12:08 PM LITHOGRAPHIC PRESS FEEDER 1 mg heparin 10 Units/mL in NaCl 0.9% 500 mL flush solution miscellaneous, Once in surgery, OR use only, Starting on Liv 02/05/24 at 0715, For 1 dose, Intra-Op, *Flush/Irrigation use only* heparin flush As needed, Starting on Liv 02/05/24 at 1120, Intra-Op Given 02/05/2024 11:20 AM LITHOGRAPHIC PRESS FEEDER 100 Units metoprolol tablet 12.5 mg (Lopressor) 12.5 mg, oral, Once as needed, if patient did not take their last scheduled dose of beta dionna prior to arrival, Starting on Liv 02/05/24 at 0628, For 1 dose, Pre-Op, Do not give if patient does not take scheduled beta blockers, if patient is receiving intravenous vasopressors or inotropes, if heart rate is less than 50 beats per minute, if systolic blood pressure is less than 90 mmHg or if diastolic blood pressure is less than 40 mmHg, or if patient has an allergy to metoprolol. sodium chloride 0.9 % injection 10 mL 10 mL, intravenous, As needed, line care, Starting on Liv 02/05/24 at 0616, Pre-Op, Peripheral Intravenous Catheter and Rapid Infusion Catheter, prior to blood sampling, post blood transfusion or post blood sampling sodium chloride 0.9 % injection 3 mL 3 mL, intravenous, As needed, line care, Starting on Liv 02/05/24 at 0616, Pre-Op, Prior to and following infusion and between multiple consecutive infusions: sodium chloride 0.9 % injection sodium chloride 0.9 % injection 3 mL 3 mL, intravenous, Every 12 hours scheduled, First dose on Liv 02/05/24 at 0900, Pre-Op, Peripheral Intravenous Catheter and Rapid Infusion Catheter, when no infusion to maintain patency thrombin (recombinant) topical solution (Recothrom) As needed, Starting on Liv 02/05/24 at 1100, Intra-Op Given 02/05/2024 11:00 AM LITHOGRAPHIC PRESS FEEDER 5,000 Units Left Arm documented in this encounter Active and Recently Administered Medications Times are shown in LITHOGRAPHIC PRESS FEEDER. Scheduled Medication Order 02/03/2024 02/04/2024 02/05/2024 ceFAZolin injection 2,000 mg (Ancef) (COMPLETED) 2,000 mg (rounded from 2,700 mg = 25 mg/kg 108 kg), intravenous, Once, On Liv 02/05/24 at 0745, For 1 dose, Intra-Op, Preoperatively within 1 hour prior to surgical incision For immediate IV push administration, reconstitute vial per IVAG or package insert instructions. See IVAG for administration guidelines., Drug Monitoring Program: Pharmacist to adjust medication dosing based on indication and drug clearance factors., Indications: Prophylaxis, surgical 0917 (Given - Provid er: Roseline Spears APRN, MAVIS) sodium chloride 0.9 % injection 3 mL 3 mL, intravenous, Every 12 hours scheduled, First dose on Liv 02/05/24 at 0900, Pre-Op, Peripheral Intravenous Catheter and Rapid Infusion Catheter, when no infusion to maintain patency 0900 (Due) Continuous Medication Order 02/03/2024 02/04/2024 02/05/2024 NaCl 0.9% infusion 20 mL/hr, intravenous, Continuous, Starting on Liv 02/05/24 at 1230, PACU (only) 1230 (Due) PRN Medication Order 02/03/2024 02/04/2024 02/05/2024 chlorhexidine 0.12 % mouthwash 15 mL (Peridex) 15 mL, swish & spit, Once as needed, Chlorhexidine mouthwash (Peridex) should be given if patient did not complete oral care, if completion is greater than 4 hours prior to surgery or procedure start time and they do not have the opportunity to brush their teeth now (or at this time)., Starting on Liv 02/05/24 at 0628, For 1 dose, Pre-Op, Instruct patient to swish entire content of Chlorhexidine 0.12% mouthwash (PERIDEX) 15 mL cup for 30 seconds, then spit, swish & spit. If patient is at risk for aspiration, apply Chlorhexidine 0.12% mouthwash to a swab and gently swab the patient's teeth and gums. Ensure swab is not oversaturated. fentaNYL injection 25 mcg (Sublimaze) 25 mcg, intravenous, Every 2 min PRN, moderate pain or score 4-6 of 10, severe pain or score 7-10 of 10, Starting on Liv 02/05/24 at 1203, PACU (only), Up to maximum total dose of 200 mcg 1210 (Given - Provid er: Ibis MurphyS.N., R.N.)1215 (Given - Provider: Ibis MurphyS.N., R.N.)1222 (Given - Provider: Ibis MurphyS.N., R.N.)1242 (Given - Provider: Ibis MurphyS.N., R.N.) gelatin sponge,absorb-porcine 50 sponge (Gelfoam) (CANCELED) As needed, Starting on Liv 02/05/24 at 1100, Intra-Op 1100 (Given - Provid er: Ramesh Fernandez, M.D. - Comment: Mixed with Thrombin) gentamicin-polymixin B 20 mcg/mL-500 units/mL irrigation bottle (DABS Modified Irrigation) irrigation, Once in surgery, OR use only, Starting on Liv 02/05/24 at 0715, For 1 dose, Intra-Op, *IRRIGATION ONLY* gentamicin-polymixin B 20 mcg/mL-500 units/mL irrigation bottle (DABS Modified Irrigation) (CANCELED) As needed, Starting on Liv 02/05/24 at 1117, Intra-Op 1117 (Given - Provid er: Ramesh Fernandez M.D.) granisetron (PF) injection 1 mg (KytriL) (COMPLETED) 1 mg, intravenous, Once as needed, nausea, vomiting, Starting on Liv 02/05/24 at 1203, For 1 dose, PACU (only), If patient does not respond to ondansetron or haloperidol. (Order of antiemetic administration - ondansetron then haloperidol or droperidol then granisetron) 1208 (Given - Provid er: Ibis MurphySJanieNJanie, R.N.) haloperidol lactate injection 1 mg (HaldoL) 1 mg, intravenous, Every 6 hours PRN, nausea, vomiting, Starting on Liv 02/05/24 at 1203, PACU (only), Total of 3 doses in 24 hour period. RASS must be -2 or higher to administer. If nausea and vomiting persists, move to granisteron. (Order of antiemetic administration - ondansetron then haloperidol or droperidol then granisetron) heparin 10 Units/mL in NaCl 0.9% 500 mL flush solution miscellaneous, Once in surgery, OR use only, Starting on Liv 02/05/24 at 0715, For 1 dose, Intra-Op, *Flush/Irrigation use only* heparin flush (CANCELED) As needed, Starting on Liv 24 at 1120, Intra-Op 1120 (Given - Provid er: Ramesh Fernandez M.D. - Comment: left arm irrigation) metoprolol tablet 12.5 mg (Lopressor) 12.5 mg, oral, Once as needed, if patient did not take their last scheduled dose of beta dionna prior to arrival, Starting on Liv 02/05/24 at 0628, For 1 dose, Pre-Op, Do not give if patient does not take scheduled beta blockers, if patient is receiving intravenous vasopressors or inotropes, if heart rate is less than 50 beats per minute, if systolic blood pressure is less than 90 mmHg or if diastolic blood pressure is less than 40 mmHg, or if patient has an allergy to metoprolol. sodium chloride 0.9 % injection 10 mL 10 mL, intravenous, As needed, line care, Starting on Liv 02/05/24 at 0616, Pre-Op, Peripheral Intravenous Catheter and Rapid Infusion Catheter, prior to blood sampling, post blood transfusion or post blood sampling sodium chloride 0.9 % injection 3 mL 3 mL, intravenous, As needed, line care, Starting on Liv 02/05/24 at 0616, Pre-Op, Prior to and following infusion and between multiple consecutive infusions: sodium chloride 0.9 % injection thrombin (recombinant) topical solution (Recothrom) (CANCELED) As needed, Starting on Liv 02/05/24 at 1100, Intra-Op 1100 (Given - Provid er: Ramesh Fernandez M.D. - Comment: mixed with surgifoam gelatin sponge) documented in this encounter Care Teams Flow Specialist Relationship Specialty Start Date End Date None Reported, Pcp PCP - General Family Medicine 03/10/23 documented as of this encounter
--- OUTSIDE RECORDS SUMMARY | 2024-02-20 23:57 | XMS_ITS | Encounter Summary ---
Author Organization [facility] Address [address] [place] [id number] Care Team Providers Care Transportation Engineering Technician Name Role Phone None Reported, Pcp Primary Care Provider Unavail able Reason for Referral * MRI/CAT/PET Scan (Routine) - Closed Specialty Diagnoses / Procedures Referred By Contac t Referred To Contact Radiology Diagnoses Nodule Pulmonary Procedures CT Chest without IV Contrast Jo Root M.D., Ph.D. [address] [place] [phone] Phone: tel: fax: [facility] Referral ID Status Reason Start Date Expiration Date Visits Re quested Visits Authorized [id number] Closed 01/21/2024 01/20/2025 1 1 ER Encounter Details Date Type Department Care Team (Late st Contact Info) Description 01/21/2024 Orders Only Division of Nephrology and Hypertension in [place], [place] [address] [place] [address] [phone] Jo Root M.D., Ph.D. [address] [place] [address] [phone] Nodule Pulmonary (Primary Dx) Social History Tobacco Use Types Packs/Day Years Used Date Smoking Tobacco: Never Smokeless Tobacco: Never Alcohol Use Standard Drinks/Week Comments Never 0 (1 standard drink = 0.6 oz pur e alcohol) [facility] Utilities Answer Date Recorded In [...] your living situation today? [facility] 11/07/2023 Comments No Sex and Gender Information Value Date Recorded Sex Assigned at Female 03/13/2023 1:38 PM MAILER Legal Sex Female 10:08 PM MAILER Gender Identity Female 03/13/2023 1:42 PM MAILER Sexual Orientation Straight 03/13/2023 1: 42 PM MAILER documented as of this encounter Plan of Treatment Upcoming Encounters Date Type Department Care Team (Latest Contact Info) Description 03/02/2024 10:00 AM MAILER Telemedicine Department of Patient Education in [place], [place] [address] [place] [phone] Sheree Franz M.D. [address] [place] [phone] 03/05/2024 11:30 AM MAILER Clinical Communication Virtual Review in [place], [place] 200 [place] [phone] 03/09/2024 6:40 AM MAILER Lab Department of Laboratory Medicine and Pathology, [address] [phone] Sheree Franz M.D. [address] [place] [phone] 03/09/2024 6:50 AM MAILER Lab Department of Laboratory Medicine and Pathology, [facility] in [place], [place] [address] [place] [phone] Sheree Franz M.D. [address] [place] [phone] 03/09/2024 7:20 AM MAILER Ancillary Procedure Department of Cardiovascular Medicine in [address] [phone] Sheree Franz M.D. [address] [place] [phone] 03/09/2024 9:00 AM MAILER Comprehensive Visit Division of Endocrinology in [place], [place] [address] [place] [address] Jo Farris M.D. [address] [place] [address] 03/09/2024 10:30 AM MAILER Comprehensive Visit Freddy Berlin [facility] for Transplantation and Clinical Regeneration in [place], [place] [address] [place] [address] Idalia Hand M.D. [address] [place] [phone] 03/09/2024 12:00 PM MAILER Appointment Department of Radiology, [facility], in [place], [place] [address] [place] [address] Sheree Franz M.D. [address] [place] [address] 03/09/2024 2:00 PM MAILER Virtual Visit Freddy martin [facility] for Transplantation and Clinical Regeneration in [place], [place] [address] [place] [address] Sheree Franz M.D. [address] [place] [phone] 03/09/2024 3:20 PM MAILER Appointment Department of Cardiovascular Diseases in [place], [place] [address] [place] [address] Sheree Franz M.D. [address] [place] [phone] 03/10/2024 9:00 AM MAILER Comprehensive Visit Freddy martin [facility] for Transplantation and Clinical Regeneration in [place], [place] [address] [place] [phone] Shahid Edge M.D. [address] [place] [phone] 03/10/2024 1:30 PM MAILER Appointment Division of Nephrology and Hypertension, [facility], in [place], [place] [address] [place] [phone] Nicholas Tracey, MAGY, C.N.P., M.S.N. [address] [place] [phone] 03/11/2024 8:00 AM MAILER Clinical Support [facility] in [place], [place] [address] [place] [address] Sheree Franz M.D. [address] [place] [phone] Alyse Chang M.S.Kayla., L.I.C.S.W. [address] [place] [phone] 03/11/2024 10:00 AM MAILER Office Visit Freddy martin [facility] for Transplantation and Clinical Regeneration in [place], [place] [address] [place] [address] Sheree Franz M.D. [address] [place] [phone] 03/11/2024 11:00 AM MAILER Comprehensive Visit Freddy martin [facility] for Transplantation and Clinical Regeneration in [place], [place] [address] [place] [address] Sheree Franz M.D. [address] [place] [phone] 03/11/2024 1:00 PM MAILER Nurse Only [facility] in [place], [place] [address] [place] [address] Sheree Franz M.D. [address] [place] [phone] 03/11/2024 4:00 PM MAILER Office Visit [facility] in [place], [place] [address] [place] [address] Idalia Hand M.D. [address] [place] [phone] 03/23/2024 1:30 PM MAILER Appointment Department of Radiology, [facility], in [place], [place] [address] [place] [address] Glen Baker M.D. [address] [place] [phone] Discharge Disposition: Home or Self Care 03/23/2024 3:00 PM MAILER Nurse Only Division of Nephrology and Hypertension in [place], [place] [address] [place] [phone] Glen Baker M.D. [address] [place] [phone] documented as of this encounter Results * CT Chest without IV Contrast (02/01/2024 11:07 AM MAILER) Anatomical Region Laterality Modality Chest, Thoracic RST LOS, Tho racic ARZ LOS, Thoracic FLA LOS N/A Computed Tomography, Compute d Tomography Impressions 02/01/2024 4:08 PM MAILER Nearly resolved prior right upper lobe semisolid nodule, which was likely infectious/inflammatory. No concerning pulmonary nodules. Narrative 02/01/2024 4:08 PM MAILER EXAM: CT CHEST WITHOUT IV CONTRAST COMPARISON: [...] Ph.D. IMG CT PROCEDU RES Final Result documented in this encounter Visit Diagnoses Diagnosis Nodule Pulmonary- Primary Nodule Pulmonary documented in this encounter Care Teams Transportation Engineering Technician Relationship Specialty Start Date End Date None Reported, Pcp PCP - General Family Medicine 03/10/23 documented as of this encounter
--- OUTSIDE RECORDS SUMMARY | 2024-02-20 23:57 | XMS_ITS | Encounter Summary ---
Author Organization [facility] Address [address] [place] [id number] Care Team Providers Care Supervisor Shop Name Role Phone None Reported, Pcp Primary Care Provider Unavail able Reason for Referral * Outpatient (Routine) - Closed Specialty Diagnoses / Procedures Referred By Crow olivo Referred To Contact Radiology Diagnoses Complication Dialysis Catheter Subsequent Chronic Failure Renal End Stage Renal Disease Dialysis Dependent (HCC) Procedures IR Dialysis / High Flow Catheter Exchange Nicholas Tracey APRN C.N.P., M.S.N. [address] [place] [phone] Phone: tel: fax: [facility] Referral ID Status Reason Start Date Expiration Date Visits Re quested Visits Authorized [id number] Closed 02/06/2024 02/05/2025 1 1 ACUTE CARE NURSE Reason for Visit * Outpatient (Routine) - Closed Specialty Diagnoses / Procedures Referred By Contlaura olivo Referred To Contact Radiology Diagnoses Complication Dialysis Catheter Subsequent Chronic Failure Renal End Stage Renal Disease Dialysis Dependent (HCC) Procedures IR Dialysis / High Flow Catheter Exchange Nicholas Tracey APRN, C.N.P., M.S.N. [address] [place] [phone] Phone: tel: fax: [facility] Referral ID Status Reason Start Date Expiration Date Visits Re quested Visits Authorized [id number] Closed 02/06/2024 02/05/2025 1 1 Encounter Details Date Type Department Care Team (Latest Contact Info) Description 02/06/2024 10:50 AM POST ACUTE CARE NURSE - 02/06/2024 2:09 PM POST ACUTE CARE NURSE Hospital Encounter Department of Radiology in [place], [place] [address] [place] [phone] Nicholas Tracey, MAGY, C.N.P., M.S.N. [address] [place] [phone] Amos Torres M.D. [address] [place] [phone] Complication Dialysis Catheter Subsequent; Chronic Failure Renal End Stage Renal Disease Dialysis Dependent (HCC) Discharge Disposition: Home or Self Care Social History Tobacco Use Types Packs/Day Years Used Date Smoking Tobacco: Never Smokeless Tobacco: Never Alcohol Use Standard Drinks/Week Comments Never 0 (1 standard drink = 0.6 oz pur e alcohol) [facility] Utilities Answer Date Recorded In the past 12 months has [employer], gas, oil, or water [employer] threatened to shut off services in your [...] your living situation today? I have a [facility] place to live 11/07/2023 Comments No Sex and Gender Information Value Date Recorded Sex Assigned at Female 03/13/2023 1:38 PM POST ACUTE CARE NURSE Legal Sex Female 10:08 PM POST ACUTE CARE NURSE Gender Identity Female 03/13/2023 1:42 PM POST ACUTE CARE NURSE Sexual Orientation Straight 03/13/2023 1: 42 PM POST ACUTE CARE NURSE documented as of this encounter Last Filed Vital Signs Vital Sign Reading Time Taken Comments Blood Pressure 127/79 02/06/2024 2:00 PM POST ACUTE CARE NURSE Pulse 77 02/06/2024 2:00 PM POST ACUTE CARE NURSE Temperature 36.4 C (97.5 F) 02/06/2024 1:37 PM POST ACUTE CARE NURSE Respiratory Rate 14 02/06/2024 2:00 PM POST ACUTE CARE NURSE Oxygen Saturation 98% 02/06/2024 2:00 PM POST ACUTE CARE NURSE Inhaled Oxygen Concentration - - Weight 109 kg (241 lb 1.2 oz) 02/06/2024 12:03 P M POST ACUTE CARE NURSE Height - - Body Mass Index 40.12 02/05/2024 6:35 AM POST ACUTE CARE NURSE documented in this encounter Medications at Time of Discharge acetaminophen (TylenoL) 500 mg tablet Take 500 mg by mouth every 6 (six) hours as needed for pain. B complex-vitamin C-FA (Nephro-Wally) 0.8 mg tablet [...] daily. 2 mg every evening daily 02/06/2024 5 documented as of this encounter Plan of Treatment Upcoming Encounters Date Type Department Care Team (Latest Contact Info) Description 03/02/2024 10:00 AM POST ACUTE CARE NURSE Telemedicine Department of Patient Education in [place], [place] [address] [place] [phone] Sheree Franz M.D. [address] [place] [phone] 03/05/2024 11:30 AM POST ACUTE CARE NURSE Clinical Communication Virtual Review in [place], [place] [address] [place] [phone] 03/09/2024 6:40 AM POST ACUTE CARE NURSE Lab Department of Laboratory Medicine and Pathology, [facility], in [place], [place] [address] [place] [phone] Sheree Franz M.D. [address] [place] [phone] 03/09/2024 6:50 AM POST ACUTE CARE NURSE Lab Department of Laboratory Medicine and Pathology, [facility], in [place], [place] [address] [place] [phone] Sheree Franz M.D. [address] [place] [phone] 03/09/2024 7:20 AM POST ACUTE CARE NURSE Ancillary Procedure Department of Cardiovascular Medicine in [place], [place] [address] [place] [phone] Sheree Franz M.D. [address] [place] [phone] 03/09/2024 9:00 AM POST ACUTE CARE NURSE Comprehensive Visit Division of Endocrinology in [place], [place] [address] [place] [phone] Jo Farris M.D. [address] [place] [phone] 03/09/2024 10:30 AM POST ACUTE CARE NURSE Comprehensive Visit [facility] for Transplantation and Clinical Regeneration in [place], [place] [address] [place] [phone] Idalia Hand M.D. [address] [place] [phone] 03/09/2024 12:00 PM POST ACUTE CARE NURSE Appointment Department of Radiology, [facility], in [place], [place] [address] [place] [phone] Sheree Franz M.D. [address] [place] [phone] 03/09/2024 2:00 PM POST ACUTE CARE NURSE Virtual Visit [facility] for Transplantation and Clinical Regeneration in [place], [place] [address] [place] [phone] Sheree Franz M.D. [address] [place] [phone] 03/09/2024 3:20 PM POST ACUTE CARE NURSE Appointment Department of Cardiovascular Diseases in [place], [place] [address] [place] [phone] Sheree Franz M.D. [address] [place] [phone] 03/10/2024 9:00 AM POST ACUTE CARE NURSE Comprehensive Visit [facility] [place] Transplantation and Clinical Regeneration in [place], [place] [address] [place] [phone] Shahid Edge M.D. [address] [place] [phone] 03/10/2024 1:30 PM POST ACUTE CARE NURSE Appointment Division of Nephrology and Hypertension, [facility], in [place], [place] [address] [place] [phone] Nicholas Tracey, MAGY, C.N.P., M.S.N. [address] [place] [phone] 03/11/2024 8:00 AM POST ACUTE CARE NURSE Clinical Support [facility] for Transplantation and Clinical Regeneration in [place], [place] [address] [place] [phone] Sheree Franz M.D. [address] [place] [phone] Alyse Chang, M.S.W., L.I.C.S.W. [address] [place] [phone] 03/11/2024 10:00 AM POST ACUTE CARE NURSE Office Visit [facility] in [place], [place] [address] [place] [phone] Sheree Franz M.D. [address] [place] [phone] 03/11/2024 11:00 AM POST ACUTE CARE NURSE Comprehensive Visit [facility] [place] Transplantation and Clinical Regeneration in [place], [place] [address] [place] [address] Sheree Franz M.D. [address] [place] [phone] 03/11/2024 1:00 PM POST ACUTE CARE NURSE Nurse Only [facility] [place] Transplantation and Clinical Regeneration in [place], [place] [address] [place] [address] Sheree Franz M.D. [address] [place] [phone] 03/11/2024 4:00 PM POST ACUTE CARE NURSE Office Visit [facility] [place] Transplantation and Clinical Regeneration in [place], [place] [address] [place] [phone] Idalia Hand M.D. [address] [place] [phone] 03/23/2024 1:30 PM POST ACUTE CARE NURSE Appointment Department of Radiology, [facility], in [place], [place] [address] [place] [address] Glen Baker M.D. [address] [place] [phone] Discharge Disposition: Home or Self Care 03/23/2024 3:00 PM POST ACUTE CARE NURSE Nurse Only Division of Nephrology and Hypertension in [place], [place] [address] [place] [phone] Glen Baker M.D. [address] [place] [phone] documented as of this encounter Procedures Procedure Name Priority Date/Time Associated Diagnosis Comments IR DIALYSIS / HIGH FLOW CATHETER EXCHANGE RAD - Routine (most inpatients and all outpatients) 02/06/2024 1:12 PM POST ACUTE CARE NURSE Complication Dialysis Catheter Subsequent Chronic Failure Renal End Stage Renal Disease Dialysis Dependent (HCC) documented in this encounter Results * IR Dialysis / High Flow Catheter Exchange (02/06/2024 1:12 PM POST ACUTE CARE NURSE) Anatomical Region Laterality Modality Body, Vascular Interventiona l RST LOS, Vascular Interventional ARZ LOS, Vascular Interventional FLA LOS N/A X-Ray Angiography Impressions 02/06/2024 1:46 PM POST ACUTE CARE NURSE Exchange of a tunneled dialysis catheter, ready for use. NR Narrative 02/06/2024 1:46 PM POST ACUTE CARE NURSE EXAM: IR DIALYSIS / HIGH FLOW CATHETER EXCHANGE CLINICAL HISTORY: 48-year-old female patient with recurring catheter dysfunction and subsequent exchanges. TECHNIQUE: The patient was placed supine on the fluoroscopy table. The right neck, chest, and indwelling catheter were prepared and draped in sterile fashion. Fluoroscopic cause analyst image demonstrates a tunneled dialysis catheter in [...] were prepared and draped insterile fashion. Fluoroscopic cause analyst image demonstrates a tunneled dialysiscatheter in expected [...] M.S.N. IMG IR PROCEDURE S Final Result documented in this encounter Visit Diagnoses Diagnosis Complication Dialysis Catheter Subsequent Chronic Failure Renal End Stage Renal Disease Dialysis Dependent (HCC) documented in this encounter Administered Medications Inactive Administered Medications - up to 3 most recent administrations Medication Order MAR Action Action Date Dose Rate Site fentaNYL injection 25 mcg (Sublimaze) 25 mcg, [...] is less than 8 breaths/minute., Starting on Fri02/06/24 at 1247, For 3 hours, Intraprocedure (RAD), Subsequent doses Given 02/06/2024 1:08 PM POST ACUTE CARE NURSE 25 mcg Given 02/06/2024 1:05 PM POST ACUTE CARE NURSE 25 mcg Given 02/06/2024 1:01 PM POST ACUTE CARE NURSE 25 mcg fentaNYL injection 25 mcg (Sublimaze) 25 mcg, intravenous, Once as needed, sedation, Starting on Fri02/06/24 at 1247, For 1 dose, Intraprocedure (RAD), IV Push, Initial dose Given 02/06/2024 1:09 PM POST ACUTE CARE NURSE 25 mcg flumazeniL injection 0.2 mg (Romazicon) 0.2 mg, intravenous, Once as needed, reversal, Starting on Fri02/06/24 at 1247, For 1 dose, Intraprocedure (RAD), Administer once if patient has a RASS score of -4, -5 and has a respiratory rate less than 8 breaths/minute. Lactated Ringer's 20 mL/hr, intravenous, Once as needed, to keep vein open, Starting on Fri02/06/24 at 1247, For 1 dose, Intraprocedure (RAD) New Bag 02/06/2024 12:52 PM POST ACUTE CARE NURSE 20 mL/h r 20 mL/hr lidocaine 10 mg/mL (1 %) injection (Xylocaine) As needed, Starting on Fri02/06/24 at 1311, Intra-Op Given 02/06/2024 1:11 PM POST ACUTE CARE NURSE 2 mL midazolam (PF) injection 0.25 mg (Versed) 0.25 mg, intravenous, Every 2 min PRN, sedation, RASS -2, Starting on Fri02/06/24 at 1247, For 3 hours, Intraprocedure (RAD), May repeat every 2 minutes to a maximum of 5 mg. Do not give if respiratory rate is less than 8 breaths/minute. midazolam (PF) injection 0.5 mg (Versed) 0.5 mg, intravenous, Once as needed, sedation, Starting on Fri02/06/24 at 1247, For 1 dose, Intraprocedure (RAD) midazolam (PF) injection 0.5 mg (Versed) 0.5 mg, intravenous, Every 2 min PRN, sedation, RASS -1, Starting on Fri02/06/24 at 1247, For 3 hours, Intraprocedure (RAD), May repeat every 2 minutes for a maximum of 5 mg. Do not give if respiratory rate is less than 8 breaths/minute. midazolam (PF) injection 1 mg (Versed) 1 mg, intravenous, Every 2 min PRN, sedation, RASS 0, Starting on Fri02/06/24 at 1247, For 3 hours, Intraprocedure (RAD), May repeat every 2 minutes for a maximum of 5 mg. Do not give if respiratory rate is less than 8 breaths/minute. Given 02/06/2024 1:08 PM POST ACUTE CARE NURSE 1 mg Given 02/06/2024 1:01 PM POST ACUTE CARE NURSE 1 mg Given 02/06/2024 12:55 PM POST ACUTE CARE NURSE 1 mg naloxone injection 0.2 mg (Narcan) 0.2 mg, intravenous, Once as needed, respiratory depression, Starting on Fri02/06/24 at 1247, For 1 dose, Intraprocedure (RAD), Administer once if patient has a RASS score of -4, -5 and has a respiratory rate less than 8 breaths/minute. sodium chloride 0.9 % injection 10 mL 10 mL, intravenous, As needed, line care, Starting on Fri02/06/24 at 1146, Preprocedure (RAD), Peripheral Intravenous Catheter and Rapid Infusion Catheter, prior to blood sampling, post blood transfusion or post blood sampling sodium chloride 0.9 % injection 3 mL 3 mL, intravenous, As needed, line care, Starting on Fri02/06/24 at 1146, Preprocedure (RAD), Prior to and following infusion and between multiple consecutive infusions: sodium chloride 0.9 % injection sodium chloride 0.9 % injection 3 mL 3 mL, intravenous, Every 12 hours scheduled, First dose on Fri02/06/24 at 2100, Preprocedure (RAD), Peripheral Intravenous Catheter and Rapid Infusion Catheter, when no infusion to maintain patency sodium citrate 4 % injection As needed, Starting on Fri02/06/24 at 1312, Intra-Op Given 02/06/2024 1:12 PM POST ACUTE CARE NURSE 6 mL documented in this encounter Active and Recently Administered Medications Times are shown in POST ACUTE CARE NURSE. Scheduled Medication Order 02/04/2024 02/05/2024 02/06/2024 sodium chloride 0.9 % injection 3 mL 3 mL, intravenous, Every 12 hours scheduled, First dose on Fri02/06/24 at 2100, Preprocedure (RAD), Peripheral Intravenous Catheter and Rapid Infusion Catheter, when no infusion to maintain patency PRN Medication Order 02/04/2024 02/05/2024 02/06/2024 fentaNYL injection 25 mcg (Sublimaze) 25 mcg, [...] is less than 8 breaths/minute., Starting on Fri02/06/24 at 1247, For 3 hours, Intraprocedure (RAD), Subsequent doses 1251 (Given - Provid er: Ken Berry R.N.)1255 (Given - Provider: Ken Berry R.N.)1301 (Given - Provider: Ken Berry R.N.)1305 (Given - Provider: Ken Berry R.N.)1308 (Given - Provider: Ken Berry R.N.) fentaNYL injection 25 mcg (Sublimaze) (COMPLETED) 25 mcg, intravenous, Once as needed, sedation, Starting on Fri02/06/24 at 1247, For 1 dose, Intraprocedure (RAD), IV Push, Initial dose 1309 (Given - Provid er: Ken Berry R.N.) flumazeniL injection 0.2 mg (Romazicon) 0.2 mg, intravenous, Once as needed, reversal, Starting on Fri02/06/24 at 1247, For 1 dose, Intraprocedure (RAD), Administer once if patient has a RASS score of -4, -5 and has a respiratory rate less than 8 breaths/minute. Lactated Ringer's (COMPLETED) 20 mL/hr, intravenous, Once as needed, to keep vein open, Starting on Fri02/06/24 at 1247, For 1 dose, Intraprocedure (RAD) 1252 (New Bag - Prov ider: Ken Berry R.N.)1315 (Stopped - Provider: Ken Berry R.N.) lidocaine 10 mg/mL (1 %) injection (Xylocaine) (COMPLETED) As needed, Starting on Fri02/06/24 at 1311, Intra-Op 1311 (Given - Provid er: Amos Torres M.D.) midazolam (PF) injection 0.25 mg (Versed) 0.25 mg, intravenous, Every 2 min PRN, sedation, RASS -2, Starting on Fri02/06/24 at 1247, For 3 hours, Intraprocedure (RAD), May repeat every 2 minutes to a maximum of 5 mg. Do not give if respiratory rate is less than 8 breaths/minute. midazolam (PF) injection 0.5 mg (Versed) 0.5 mg, intravenous, Once as needed, sedation, Starting on Fri02/06/24 at 1247, For 1 dose, Intraprocedure (RAD) midazolam (PF) injection 0.5 mg (Versed) 0.5 mg, intravenous, Every 2 min PRN, sedation, RASS -1, Starting on Fri02/06/24 at 1247, For 3 hours, Intraprocedure (RAD), May repeat every 2 minutes for a maximum of 5 mg. Do not give if respiratory rate is less than 8 breaths/minute. midazolam (PF) injection 1 mg (Versed) 1 mg, intravenous, Every 2 min PRN, sedation, RASS 0, Starting on Fri02/06/24 at 1247, For 3 hours, Intraprocedure (RAD), May repeat every 2 minutes for a maximum of 5 mg. Do not give if respiratory rate is less than 8 breaths/minute. 1252 (Given - Provid er: Ken Berry R.N.)1255 (Given - Provider: Ken Berry R.N.)1301 (Given - Provider: Ken Berry R.N.)1308 (Given - Provider: Ken Berry R.N.) naloxone injection 0.2 mg (Narcan) 0.2 mg, intravenous, Once as needed, respiratory depression, Starting on Fri02/06/24 at 1247, For 1 dose, Intraprocedure (RAD), Administer once if patient has a RASS score of -4, -5 and has a respiratory rate less than 8 breaths/minute. sodium chloride 0.9 % injection 10 mL 10 mL, intravenous, As needed, line care, Starting on Fri02/06/24 at 1146, Preprocedure (RAD), Peripheral Intravenous Catheter and Rapid Infusion Catheter, prior to blood sampling, post blood transfusion or post blood sampling sodium chloride 0.9 % injection 3 mL 3 mL, intravenous, As needed, line care, Starting on Fri02/06/24 at 1146, Preprocedure (RAD), Prior to and following infusion and between multiple consecutive infusions: sodium chloride 0.9 % injection sodium citrate 4 % injection (COMPLETED) As needed, Starting on Fri02/06/24 at 1312, Intra-Op 1312 (Given - Provid er: Amos Torres M.D.) documented in this encounter Care Teams Supervisor Shop Relationship Specialty Start Date End Date None Reported, Pcp PCP - General Family Medicine 03/10/23 documented as of this encounter
--- OUTSIDE RECORDS SUMMARY | 2024-02-20 23:57 | XMS_ITS | Encounter Summary ---
Author Organization [facility] Address [address] [place] [id number] Care Team Providers Care Cnc Service Technician Name Role Phone None Reported, Pcp Primary Care Provider Unavail able Reason for Referral * Outpatient (Routine) - Closed Specialty Diagnoses / Procedures Referred By Crow olivo Referred To Contact Radiology Diagnoses Complication Dialysis Catheter Subsequent Chronic Failure Renal End Stage Renal Disease Dialysis Dependent (HCC) Procedures IR Dialysis / High Flow Catheter Exchange Nicholas Tracey APRN C.N.P., M.S.N. [address] [place] [phone] Phone: tel: fax: [facility] Referral ID Status Reason Start Date Expiration Date Visits Re quested Visits Authorized [id number] Closed 01/21/2024 01/20/2025 1 1 RY CHEF Reason for Visit * Outpatient (Routine) - Closed Specialty Diagnoses / Procedures Referred By Contac t Referred To Contact Radiology Diagnoses Complication Dialysis Catheter Subsequent Chronic Failure Renal End Stage Renal Disease Dialysis Dependent (HCC) Procedures IR Dialysis / High Flow Catheter Exchange Nicholas Tracey APRN, C.N.P., M.S.N. [address] [place] [phone] Phone: tel: fax: [facility] Referral ID Status Reason Start Date Expiration Date Visits Re quested Visits Authorized [id number] Closed 01/21/2024 01/20/2025 1 1 Encounter Details Date Type Department Care Team (Latest Contact Info) Description 01/21/2024 10:05 AM PASTRY CHEF - 01/21/2024 3:35 PM PASTRY CHEF Hospital Encounter Department of Radiology in [place], [place] [address] [place] [phone] Nicholas Tracey, MAGY, C.N.P., M.S.N. [address] [place] [phone] Antony Liz M.D. [address] [place] [phone] Complication Dialysis Catheter Subsequent; Chronic Failure Renal End Stage Renal Disease Dialysis Dependent (HCC) Discharge Disposition: Home or Self Care Social History Tobacco Use Types Packs/Day Years Used Date Smoking Tobacco: Never Smokeless Tobacco: Never Alcohol Use Standard Drinks/Week Comments Never 0 (1 standard drink = 0.6 oz pur e alcohol) [facility] Utilities Answer Date Recorded In the past 12 months has [employer], gas, oil, or water [employer] threatened to shut off services in your [...] your living situation today? I have a [facility] place to live 11/07/2023 Comments No Sex and Gender Information Value Date Recorded Sex Assigned at Female 03/13/2023 1:38 PM PASTRY CHEF Legal Sex Female 10:08 PM PASTRY CHEF Gender Identity Female 03/13/2023 1:42 PM PASTRY CHEF Sexual Orientation Straight 03/13/2023 1: 42 PM PASTRY CHEF documented as of this encounter Last Filed Vital Signs Vital Sign Reading Time Taken Comments Blood Pressure 154/79 01/21/2024 2:55 PM PASTRY CHEF Pulse 61 01/21/2024 3:05 PM PASTRY CHEF Temperature 36.7 C (98.1 F) 01/21/2024 2:55 PM PASTRY CHEF Respiratory Rate 14 01/21/2024 3:05 PM PASTRY CHEF Oxygen Saturation 99% 01/21/2024 3:05 PM PASTRY CHEF Inhaled Oxygen Concentration - - Weight 108 kg (238 lb 8.6 oz) 01/21/2024 12:18 P M PASTRY CHEF Height - - Body Mass Index 46.59 11/07/2023 5:54 PM CDT documented in this encounter Discharge Instructions * Attachments The following attachments cannot be sent through Care Everywhere. * Your High-Flow Central Venous Catheter documented in this encounter Medications at Time [...] day with meals. 180 tablet 3 05/06/2023 5 ceFAZolin (Ancef) 200 mg/mL injectionIndicati ons:Blood stream [...] mouth daily. 2 mg every evening daily 12/20/2023 4 warfarin (Jantoven) 2 mg tablet Take 1 tablet (2 mg total) by mouth daily. 2 mg every evening daily 02/06/2024 5 documented as of this encounter Procedure Notes * Antony Liz M.D. - 01/21/2024 2:44 PM CST PATIENT DISPOSITION Discharge to home. POST-PROCEDURE DIAGNOSIS Occluded right IJ tunneled dialysis catheter PROCEDURE PERFORMED AND DESCRIPTION Right IJ tunneled dialysis catheter exchange PROCEDURE DETAILS See Radiology Report SPECIMENS REMOVED None FINDINGS Tip in RA. Ready for use. PRIMARY PROCEDURALIST Shalonda [id number] ASSISTANTS None COMPLICATIONS None. DRAINS None. IMPLANTS 19 cm Palindrome ANESTHESIA Moderate Sedation. FLUIDS N/a ESTIMATED BLOOD LOSS <5ml CURRENT MEDICATIONS No Medication Changes FOLLOW-UP LETTER None. MAY RETURN TO WORK Not applicable PATIENT INSTRUCTIONS No return appointment RY CHEF documented in this encounter Plan of Treatment Upcoming Encounters Date Type Department Care Team (Latest Contact Info) Description 03/02/2024 10:00 AM PASTRY CHEF Telemedicine Department of Patient Education in [place], [place] [address] [place] [phone] Sheree Franz M.D. [address] [place] [phone] 03/05/2024 11:30 AM PASTRY CHEF Clinical Communication Virtual Review in [place], [place] [address] [place] [phone] 03/09/2024 6:40 AM PASTRY CHEF Lab Department of Laboratory Medicine and Pathology, [facility] in [place], [place] [address] [place] [phone] Sheree Franz M.D. [address] [place] [phone] 03/09/2024 6:50 AM PASTRY CHEF Lab Department of Laboratory Medicine and Pathology, [facility] in [place], [place] [address] [place] [phone] Sheree Franz M.D. [address] [place] [phone] 03/09/2024 7:20 AM PASTRY CHEF Ancillary Procedure Department of Cardiovascular Medicine in [place], [place] [address] [place] [phone] Sheree Franz M.D. [address] [place] [phone] 03/09/2024 9:00 AM PASTRY CHEF Comprehensive Visit Division of Endocrinology in [place], [place] [address] [place] [phone] Jo Farris M.D. [address] [place] [phone] 03/09/2024 10:30 AM PASTRY CHEF Comprehensive Visit Freddy Slade [facility] in [place], [place] [address] [place] [phone] Idalia Hand M.D. [address] [place] [phone] 03/09/2024 12:00 PM PASTRY CHEF Appointment Department of Radiology, [facility], in [place], [place] [address] [place] [phone] Sheree Franz M.D. [address] [place] [phone] 03/09/2024 2:00 PM PASTRY CHEF Virtual Visit Freddy Slade [facility] in [place], [place] [address] [place] [phone] Sheree Franz M.D. [address] [place] [phone] 03/09/2024 3:20 PM PASTRY CHEF Appointment Department of Cardiovascular Diseases in [place], [place] [address] [place] [phone] Sheree Franz M.D. [address] [place] [phone] 03/10/2024 9:00 AM PASTRY CHEF Comprehensive Visit Freddy Slade [facility] Trans[facility] Clinical [facility] in [place], [place] [address] [place] [phone] Shahid Edge M.D. [address] [place] [phone] 03/10/2024 1:30 PM PASTRY CHEF Appointment Division of Nephrology and Hypertension, [facility], in [place], [place] [address] [place] [phone] Nicholas Tracey APRN, C.NJanieP., M.S.N. [address] [place] [phone] 03/11/2024 8:00 AM PASTRY CHEF Clinical [facility] [place] [address] [place] [phone] Sheree Franz M.D. [address] [place] [phone] Alyse Chang M.S.W., L.I.C.S.W. [address] [place] [phone] 03/11/2024 10:00 AM PASTRY CHEF [facility] [place], [place] [address] [place] [phone] Sheree Franz M.D. [address] [place] [phone] 03/11/2024 11:00 AM PASTRY CHEF Comprehensive Visit Freddy martin [facility] in [place], [place] [address] [place] [phone] Sheree Franz M.D. [address] [place] [phone] 03/11/2024 1:00 PM PASTRY CHEF Nurse Only Freddy martin [facility] in [place], [place] [address] [place] [phone] Sheree Franz M.D. [address] [place] [phone] 03/11/2024 4:00 PM PASTRY CHEF Office Visit Freddy martin [facility] in [place], [place] [address] [place] [phone] Idalia Hand M.D. [address] [place] [phone] 03/23/2024 1:30 PM PASTRY CHEF Appointment Department of Radiology, [facility], in [place], [place] [address] [place] [phone] Glen Baker M.D. [address] [place] [phone] Discharge Disposition: Home or Self Care 03/23/2024 3:00 PM PASTRY CHEF Nurse Only Division of Nephrology and Hypertension in [place], [place] [address] [place] [phone] Glen Baker M.D. [address] [place] [phone] documented as of this encounter Procedures Procedure Name Priority Date/Time Associated Diagnosis Comments IR DIALYSIS / HIGH FLOW CATHETER EXCHANGE RAD - Routine (most inpatients and all outpatients) 01/21/2024 2:53 PM PASTRY CHEF Complication Dialysis Catheter Subsequent Chronic Failure Renal End Stage Renal Disease Dialysis Dependent (HCC) documented in this encounter Results * IR Dialysis / High Flow Catheter Exchange (01/21/2024 2:53 PM PASTRY CHEF) Anatomical Region Laterality Modality Body, Vascular Interventiona l RST LOS, Vascular Interventional ARZ LOS, Vascular Interventional FLA LOS N/A X-Ray Angiography Impressions 01/21/2024 3:22 PM PASTRY CHEF Uncomplicated exchange of a partially occluded right internal jugular tunneled dialysis catheter. The new catheter tip is in deeper position in the right atrium. Ready for use. Note that optimal catheter positioning is challenging given the geometry of her SVC and right atrium. Furthermore, given her body habitus, there may be significant positional and respiratory changes in catheter position. NR Narrative 01/21/2024 3:22 PM PASTRY CHEF EXAM: IR DIALYSIS / HIGH FLOW CATHETER EXCHANGE CLINICAL HISTORY: Occluded right internal jugular tunnel dialysis catheter. TECHNIQUE: The right internal jugular Pristine brand tunneled dialysis catheter was prepped and draped in sterile fashion. Box Car Checker film shows expected position. Preliminary aspiration and flushing showed the red lumen was occluded and the blue lumen was patent. Contrast injection through the blue lumen showed tip position in the region the SVC/right atrial junction. Under local anesthesia with 1% lidocaine, the cuff was dissected free. Over a stiff Glidewire, the catheter was pulled back into the upper SVC. Repeat contrast injection showed a widely patent SVC and no fibrin sheath. The old catheter was removed over the guidewire and exchanged for a 19 cm Palindrome catheter with the tip advanced well into the right atrium. Position was confirmed with contrast injection. Both lumens aspirated and flushed easily and were filled with 4% citrate solution and capped. Catheter wings were secured to skin with 2-0 Prolene sutures. Sterile dressing applied. Procedure was well tolerated with no immediate complications. For placement of this central venous access, we followed catheter checklist and a standardized protocol. The position of the catheter tip was confirmed under fluoroscopic guidance, and a final image of the catheter position was obtained. Ready for use. . PREPROCEDURE: Patient seen, evaluated, history reviewed, and [...] procedure. The total intra-procedural sedation time was: 12 minutes. Estimated blood loss: Less than 5 mL. Procedure Note Antony Liz M.D. - 01/21/2024 EXAM: IR DIALYSIS / HIGH FLOW CATHETER EXCHANGE CLINICAL HISTORY: Occluded right internal jugular tunnel dialysiscatheter. TECHNIQUE: The right internal jugular Pristine brand tunneled dialysiscatheter was prepped and draped in sterile fashion. Box Car Checker film showsexpected position. Preliminary aspiration and flushing showed the redlumen was occluded and the blue lumen was patent. Contrast injection through the blue lumen showed tip position inthe region the SVC/right atrial junction. Under local anesthesia with 1%lidocaine, the cuff was dissected free. Over a stiff Glidewire, thecatheter was pulled back into the upper SVC. Repeat contrast injection showed a widely patent SVC and no fibrinsheath. The old catheter was removed over the guidewire and exchanged fora 19 cm Palindrome catheter with the tip advanced well into the rightatrium. Position was confirmed with contrast injection. Both lumens aspirated and flushed easily and werefilled with 4% citrate solution and capped. Catheter wings were secured toskin with 2-0 Prolene sutures. Sterile dressing applied. Procedure waswell tolerated with no immediate complications. For placement of this central venous access, we followed catheterchecklist and a standardized protocol. The position of the catheter tipwas confirmed under fluoroscopic guidance, and a final image of thecatheter position was obtained. Ready for use. . PREPROCEDURE: Patient seen, evaluated, history reviewed, and [...] the procedure. The total intra-procedural sedation timewas: 12 minutes. Estimated blood loss: Less than 5 mL. IMPRESSION: Uncomplicated exchange of a partially occluded right internal jugulartunneled dialysis catheter. The new catheter tip is in deeper position inthe right atrium. Ready for use. Note that optimal catheter positioning ischallenging given the geometry of her SVC and right atrium. Furthermore, given her body habitus,there may be significant positional and respiratory changes in catheterposition. NR us Nicholas Tracey APRN, C.N.P., M.S.N. IMG IR [...] is less than 8 breaths/minute., Starting on Fri01/21/24 at 1432, For 3 hours, Intraprocedure (RAD), Subsequent doses Given 01/21/2024 2:31 PM PASTRY CHEF 25 mcg flumazeniL injection 0.2 mg (Romazicon) 0.2 mg, intravenous, Once as needed, reversal, Starting on Fri01/21/24 at 1432, For 1 dose, Intraprocedure (RAD), Administer once if patient has a RASS score of -4, -5 and has a respiratory rate less than 8 breaths/minute. iohexoL 300 mg iodine/mL solution (Omnipaque) As needed, Starting on Fri01/21/24 at 1452, Intra-Op Given 01/21/2024 2:52 PM PASTRY CHEF 30 mL Lactated Ringer's 20 mL/hr, intravenous, Once as needed, to keep vein open, Starting on Fri01/21/24 at 1432, For 1 dose, Intraprocedure (RAD) New Bag 01/21/2024 2:23 PM PASTRY CHEF 20 mL/hr 20 mL/hr lidocaine-sodium bicarbonate (buffered) 0.9%-0.84% injection infiltration, As needed, Starting on Fri01/21/24 at 1452, Intra-Op Given 01/21/2024 2:52 PM PASTRY CHEF 15 mL midazolam (PF) injection 0.5 mg (Versed) 0.5 mg, intravenous, Once as needed, sedation, Starting on Fri01/21/24 at 1432, For 1 dose, Intraprocedure (RAD) Given 01/21/2024 2:31 PM PASTRY CHEF 0.5 mg midazolam (PF) injection 0.5 mg (Versed) 0.5 mg, intravenous, Every 2 min PRN, sedation, RASS -1, Starting on Fri01/21/24 at 1432, For 3 hours, Intraprocedure (RAD), May repeat every 2 minutes for a maximum of 5 mg. Do not give if respiratory rate is less than 8 breaths/minute. Given 01/21/2024 2:32 PM PASTRY CHEF 0.5 mg naloxone injection 0.2 mg (Narcan) 0.2 mg, intravenous, Once as needed, respiratory depression, Starting on Fri01/21/24 at 1432, For 1 dose, Intraprocedure (RAD), Administer once if patient has a RASS score of -4, -5 and has a respiratory rate less than 8 breaths/minute. sodium citrate 4 % injection As needed, Starting on Fri01/21/24 at 1440, Intra-Op Given 01/21/2024 2:40 PM PASTRY CHEF 6 mL documented in this encounter Active and Recently Administered Medications Times are shown in PASTRY CHEF. PRN Medication Order 01/19/2024 01/20/2024 01/21/2024 fentaNYL injection 25 mcg (Sublimaze) 25 mcg, [...] is less than 8 breaths/minute., Starting on Fri01/21/24 at 1432, For 3 hours, Intraprocedure (RAD), Subsequent doses 1431 (Given - Provid er: Doris Castillo R.N.) flumazeniL injection 0.2 mg (Romazicon) 0.2 mg, intravenous, Once as needed, reversal, Starting on Fri01/21/24 at 1432, For 1 dose, Intraprocedure (RAD), Administer once if patient has a RASS score of -4, -5 and has a respiratory rate less than 8 breaths/minute. iohexoL 300 mg iodine/mL solution (Omnipaque) (COMPLETED) As needed, Starting on Fri01/21/24 at 1452, Intra-Op 1452 (Given - Provid er: Antony Liz M.D.) Lactated Ringer's (COMPLETED) 20 mL/hr, intravenous, Once as needed, to keep vein open, Starting on Fri01/21/24 at 1432, For 1 dose, Intraprocedure (RAD) 1423 (New Bag - Prov ider: Doris Castillo R.N.) lidocaine-sodium bicarbonate (buffered) 0.9%-0.84% injection (COMPLETED) infiltration, As needed, Starting on Fri01/21/24 at 1452, Intra-Op 1452 (Given - Provid er: Antony Liz M.D.) midazolam (PF) injection 0.5 mg (Versed) (COMPLETED) 0.5 mg, intravenous, Once as needed, sedation, Starting on Fri01/21/24 at 1432, For 1 dose, Intraprocedure (RAD) 1431 (Given - Provid er: Doris Castillo R.N.) midazolam (PF) injection 0.5 mg (Versed) 0.5 mg, intravenous, Every 2 min PRN, sedation, RASS -1, Starting on Fri01/21/24 at 1432, For 3 hours, Intraprocedure (RAD), May repeat every 2 minutes for a maximum of 5 mg. Do not give if respiratory rate is less than 8 breaths/minute. 1432 (Given - Provid er: Doris Castillo R.N.) naloxone injection 0.2 mg (Narcan) 0.2 mg, intravenous, Once as needed, respiratory depression, Starting on Fri01/21/24 at 1432, For 1 dose, Intraprocedure (RAD), Administer once if patient has a RASS score of -4, -5 and has a respiratory rate less than 8 breaths/minute. sodium citrate 4 % injection (COMPLETED) As needed, Starting on Fri01/21/24 at 1440, Intra-Op 1440 (Given - Provid er: Antony Liz M.D. - Comment: 3cc to each lumen of newly exchanged iHD catheter) documented in this encounter Care Teams Cnc Service Technician Relationship Specialty Start Date End Date None Reported, Pcp PCP - General Family Medicine 03/10/23 documented as of this encounter
--- OUTSIDE RECORDS SUMMARY | 2024-02-20 23:57 | XMS_ITS | Encounter Summary ---
Author Organization [facility] Address [address] [place] [address] Care Team Providers Care Nursing Home Director Name Role Phone None Reported, Pcp Primary Care Provider Unavail able Encounter Details Date Type Department Care Team (Latest Contact Info) Description 01/19/2024 8:55 AM LAUNDRY PRICING CLERK Ancillary Procedure Department of Radiology in [place], [place] [address] [place] [address] Aleks Velasquez Jr., M.D. [address] [place] [phone] Nodule Pulmonary Social History Tobacco Use Types Packs/Day Years Used Date Smoking Tobacco: Never Smokeless Tobacco: Never Alcohol Use Standard Drinks/Week Comments Never 0 (1 standard drink = 0.6 oz pur e alcohol) [facility] Utilities Answer Date Recorded In the past 12 months has [employer], gas, oil, or water [employer] threatened to shut off services in your [...] your living situation today? I have a [facility] place to live 11/07/2023 Comments No Sex and Gender Information Value Date Recorded Sex Assigned at Female 03/13/2023 1:38 PM LAUNDRY PRICING CLERK Legal Sex Female 10:08 PM LAUNDRY PRICING CLERK Gender Identity Female 03/13/2023 1:42 PM LAUNDRY PRICING CLERK Sexual Orientation Straight 03/13/2023 1: 42 PM LAUNDRY PRICING CLERK documented as of this encounter Plan of Treatment Upcoming Encounters Date Type Department Care Team (Latest Contact Info) Description 03/02/2024 10:00 AM LAUNDRY PRICING CLERK Telemedicine Department of Patient Education in [place], [place] [address] [place] [address] Sheree Franz M.D. [address] [place] [phone] 03/05/2024 11:30 AM LAUNDRY PRICING CLERK Clinical Communication Virtual Review in [place], [place] [address] [place] [address] 03/09/2024 6:40 AM LAUNDRY PRICING CLERK Lab Department of Laboratory Medicine and Pathology, [facility] in [place], [place] [address] [place] [phone] Sheree Franz M.D. [address] [place] [phone] 03/09/2024 6:50 AM LAUNDRY PRICING CLERK Lab Department of Laboratory Medicine and Pathology, [facility] in [place], [place] [address] [place] [phone] Sheree Franz M.D. [address] [place] [phone] 03/09/2024 7:20 AM LAUNDRY PRICING CLERK Ancillary Procedure Department of Cardiovascular Medicine in [address] [phone] Sheree Franz M.D. [address] [place] [phone] 03/09/2024 9:00 AM LAUNDRY PRICING CLERK Comprehensive Visit Division of Endocrinology in [place], [place] [address] [place] [phone] Jo Farris M.D. [address] [place] [phone] 03/09/2024 10:30 AM LAUNDRY PRICING CLERK Comprehensive Visit Freddy martin [facility] for Transplantation and Clinical Regeneration in [place], [place] [address] [place] [phone] Idalia Hand M.D. [address] [place] [phone] 03/09/2024 12:00 PM LAUNDRY PRICING CLERK Appointment Department of Radiology, [facility], in [place], [place] [address] [place] [address] Sheree Franz M.D. [address] [place] [phone] 03/09/2024 2:00 PM LAUNDRY PRICING CLERK [facility] in [place], [place] [address] [place] [address] Sheree Franz M.D. [address] [place] [phone] 03/09/2024 3:20 PM LAUNDRY PRICING CLERK Appointment Department of Cardiovascular Diseases in [place], [place] [address] [place] [address] Sheree Franz M.D. [address] [place] [phone] 03/10/2024 9:00 AM LAUNDRY PRICING CLERK Comprehensive Visit Freddy Slade [facility] Transplantation and Clinical Regeneration in [place], [place] [address] [place] [address] Shahid Edge M.D. [address] [place] [phone] 03/10/2024 1:30 PM LAUNDRY PRICING CLERK Appointment Division of Nephrology and Hypertension, [facility], in [place], [place] [address] [place] [address] Nicholas Tracey APRN, C.N.P., M.S.N. [address] [place] [phone] 03/11/2024 8:00 AM LAUNDRY PRICING CLERK Clinical Support [facility] in [place], [place] [address] [place] [address] Sheree Franz M.D. [address] [place] [phone] Alyse Chang M.SVirginia., L.I.C.S.W. [address] [place] [phone] 03/11/2024 10:00 AM LAUNDRY PRICING CLERK Office Visit [facility] in [place], [place] [address] [place] [address] Sheree Franz M.D. [address] [place] [phone] 03/11/2024 11:00 AM LAUNDRY PRICING CLERK Comprehensive Visit [facility] in [place], [place] [address] [place] [address] Sheree Franz M.D. [address] [place] [phone] 03/11/2024 1:00 PM LAUNDRY PRICING CLERK Nurse Only [facility] for Transplantation and Clinical Regeneration in [place], [place] [address] [place] [address] Sheree Franz M.D. [address] [place] [phone] 03/11/2024 4:00 PM LAUNDRY PRICING CLERK Office Visit [facility] in [place], [place] [address] [place] [address] Idalia Hand M.D. [address] [place] [phone] 03/23/2024 1:30 PM LAUNDRY PRICING CLERK Appointment Department of Radiology, [facility], in [place], [place] [address] [place] [address] Glen Baker M.D. [address] [place] [address] Discharge Disposition: Home or Self Care 03/23/2024 3:00 PM LAUNDRY PRICING CLERK Nurse Only Division of Nephrology and Hypertension in [place], [place] [address] [place] [address] Glen Baker M.D. [address] [place] [address] documented as of this encounter Procedures Procedure Name Priority Date/Time Associated Diagnosis Comments INTERPRETATION OF OUTSIDE CT CHEST RAD - Routine (most inpatients and all outpatients) 01/19/2024 8:57 AM LAUNDRY PRICING CLERK Nodule Pulmonary documented in this encounter Results * Interpretation of Outside CT Chest (01/19/2024 8:57 AM LAUNDRY PRICING CLERK) Anatomical Region Laterality Modality Chest, Thoracic RST LOS, Tho racic ARZ LOS, Thoracic FLA LOS, Other, Body N/A Computed Tomography Impressions 01/20/2024 9:48 AM LAUNDRY PRICING CLERK A couple of small pulmonary nodules are present. These may be infectious/inflammatory, but are technically indeterminate. Consider a short interval (3 month) follow-up chest CT in further evaluation. Narrative 01/20/2024 9:48 AM LAUNDRY PRICING CLERK EXAM: INTERPRETATION OF OUTSIDE CT CHEST without [...] appears predominantly solidmeasures 7 x 12 mm (3). An additional probable 11 x 14 mm nodule ispresent in the medial basal right lower lobe (54). No additionalpulmonary nodules. No pleural effusion. No [...] M.D. IMG CT PROCEDURES Fin al Result documented in this encounter Visit Diagnoses Diagnosis Nodule Pulmonary documented in this encounter Care Teams Nursing Home Director Relationship Specialty Start Date End Date None Reported, Pcp PCP - General Family Medicine 03/10/23 documented as of this encounter
--- OUTSIDE RECORDS SUMMARY | 2024-02-20 23:57 | XMS_ITS | Encounter Summary ---
Author Organization [facility] Address [address] [place] [address] Care Team Providers Care Buckle Coverer Name Role Phone None Reported, Pcp Primary Care Provider Unavail able Reason for Referral * Outpatient (Routine) - Authorized Specialty Diagnoses / Procedures Referred By Contac t Referred To Contact Diagnoses Chronic Failure Renal End Stage Renal Disease Dialysis Dependent (HCC) Procedures US Hemodialysis Fistula-Graft Left Glen Baker M.D. [address] [place] [address] Phone: tel: fax: [facility] Referral ID Status Reason Start Date Expiration Date V isits Requested Visits Authorized [id number] Authorized 02/13/2024 02/12/2025 1 1 MANAGEMENT ASSOCIATE * Outpatient (Routine) - Authorized Specialty Diagnoses / Procedures Referred By Crow t Referred To Contact Nephrology and Hypertension Glen Baker M.D. [address] [place] [address] Phone: tel: fax: [facility] Referral ID Status Reason Start Date Expiration Date V isits Requested Visits Authorized [id number] Authorized 02/13/2024 08/14/2025 1 1 MANAGEMENT ASSOCIATE Encounter Details Date Type Department Care Team (Late st Contact Info) Description 02/13/2024 Orders Only Division of Nephrology and Hypertension in [place], [place] [address] [place] [address] Yennifer Valderrama M.S.N., R.N. [address] [place] [address] Chronic Failure Renal End Stage Renal Disease Dialysis Dependent (HCC) (Primary Dx) Social History Tobacco Use Types Packs/Day Years Used Date Smoking Tobacco: Never Smokeless Tobacco: Never Alcohol Use Standard Drinks/Week Comments Never 0 (1 standard drink = 0.6 oz pur e alcohol) [facility] Utilities Answer Date Recorded In the past 12 months has e electric, gas, oil, or water [employer] threatened to shut off services in your [...] money to buy more. Never true 11/07/19 24 Within the past 12 months, t he [facility] 11/07/2023 Comments No Sex and Gender Information Value Date Recorded Sex Assigned at Female 03/13/2023 1:38 PM DATA MANAGEMENT ASSOCIATE Legal Sex Female 10:08 PM DATA MANAGEMENT ASSOCIATE Gender Identity Female 03/13/2023 1:42 PM DATA MANAGEMENT ASSOCIATE Sexual Orientation Straight 03/13/2023 1: 42 PM DATA MANAGEMENT ASSOCIATE documented as of this encounter Plan of Treatment Upcoming Encounters Date Type Department Care Team (Latest Contact Info) Description 03/02/2024 10:00 AM DATA MANAGEMENT ASSOCIATE Telemedicine Department of Patient Education in [address] [address] Sheree Franz M.D. [address] [place] [phone] 03/05/2024 11:30 AM DATA MANAGEMENT ASSOCIATE Clinical Communication Virtual Review in [place], [place] 200 [place] [address] 03/09/2024 6:40 AM DATA MANAGEMENT ASSOCIATE Lab Department of Laboratory Medicine and Pathology, [facility], in [place], [place] [address] [place] [phone] Sheree Franz M.D. [address] [place] [phone] 03/09/2024 6:50 AM DATA MANAGEMENT ASSOCIATE Lab Department of Laboratory Medicine and Pathology, [facility], in [place], [place] [address] [place] [address] Sheree Franz M.D. [address] [place] [phone] 03/09/2024 7:20 AM DATA MANAGEMENT ASSOCIATE Ancillary Procedure Department of Cardiovascular Medicine in [place], [place] [address] [place] [address] Sheree Franz M.D. [address] [place] [phone] 03/09/2024 9:00 AM DATA MANAGEMENT ASSOCIATE Comprehensive Visit Division of Endocrinology in [place], [place] [address] [place] [address] Jo Farris M.D. [address] [place] [phone] 03/09/2024 10:30 AM DATA MANAGEMENT ASSOCIATE Comprehensive [facility] in [place], [place] [address] [place] [address] Idalia Hand M.D. [address] [place] [phone] 03/09/2024 12:00 PM DATA MANAGEMENT ASSOCIATE Appointment Department of Radiology, [facility], in [place], [place] [address] [place] [address] Sheree Franz M.D. [address] [place] [phone] 03/09/2024 2:00 PM DATA MANAGEMENT ASSOCIATE Virtual [facility] in [place], [place] [address] [place] [address] Sheree Franz M.D. [address] [place] [phone] 03/09/2024 3:20 PM DATA MANAGEMENT ASSOCIATE Appointment Department of Cardiovascular Diseases in [place], [place] [address] [place] [phone] Sheree Franz M.D. [address] [place] [phone] 03/10/2024 9:00 AM DATA MANAGEMENT ASSOCIATE Comprehensive Visit Freddy martin [facility] for Transplantation and Clinical Regeneration in [place], [place] [address] [place] [phone] Shahid Edge M.D. [address] [place] [phone] 03/10/2024 1:30 PM DATA MANAGEMENT ASSOCIATE Appointment Division of Nephrology and Hypertension, [facility], in [place], [place] [address] [place] [phone] Nicholas Tracey APRN, C.N.P., M.S.N. [address] [place] [phone] 03/11/2024 8:00 AM DATA MANAGEMENT ASSOCIATE Clinical Support [facility] in [place], [place] [address] [place] [phone] Sheree Franz M.D. [address] [place] [phone] Alyse Chang M.S.W., L.I.C.S.W. [address] [place] [phone] 03/11/2024 10:00 AM DATA MANAGEMENT ASSOCIATE Office Visit Freddy martin [facility] for Trans[facility] and Clinical Regeneration in [place], [place] [address] [place] [phone] Sheree Franz M.D. [address] [place] [phone] 03/11/2024 11:00 AM DATA MANAGEMENT ASSOCIATE Comprehensive Visit [facility] in [place], [place] [address] [place] [phone] Sheree Franz M.D. [address] [place] [phone] 03/11/2024 1:00 PM DATA MANAGEMENT ASSOCIATE Nurse Only [facility] Transplantation and Clinical Regeneration in [place], [place] [address] [place] [phone] Sheree Franz M.D. [address] [place] [phone] 03/11/2024 4:00 PM DATA MANAGEMENT ASSOCIATE Office Visit [facility] Transplantation and Clinical Regeneration in [place], [place] [address] [place] [phone] Idalia Hand M.D. [address] [place] [phone] 03/23/2024 1:30 PM DATA MANAGEMENT ASSOCIATE Appointment Department of Radiology, [facility], in [place], [place] [address] [place] [address] Glen Baker M.D. [address] [place] [phone] Discharge Disposition: Home or Self Care 03/23/2024 3:00 PM DATA MANAGEMENT ASSOCIATE Nurse Only Division of Nephrology and Hypertension in [place], [place] [address] [place] [address] Glen Baker M.D. [address] [place] [phone] Scheduled Orders Name Type Priority Associated Diagnoses Order Schedule Hemodialysis Fistula-Graft Left Imaging RAD - Routine (most inpatients and all outpatients) Chronic Failure Renal End Stage Renal Disease Dialysis Dependent (HCC) Expected: 03/18/2024 (Approximate), Expires: 05/13/2025 Scheduled Referrals Name Type Priority Associated Diagnoses Order Schedule Nephrology nurse visit (clinic) Outpatient Referral Routine Expected: 03/18/2024 (Approximate), Expires: 05/13/2025 documented as of this encounter Visit Diagnoses Diagnosis Chronic Failure Renal End Stage Renal Disease Dialysis Dependent (HCC)- Primary documented in this encounter Care Teams Buckle Coverer Relationship Specialty Start Date End Date None Reported, Pcp PCP - General Family Medicine 03/10/23 documented as of this encounter
--- OUTSIDE RECORDS SUMMARY | 2024-02-20 23:57 | XMS_ITS | Encounter Summary ---
Author Organization [facility] Address [address] [place] [phone] Care Team Providers Care Sales Forecast Analyst Name Role Phone None Reported, Pcp Primary Care Provider Unavail able Reason for Visit * Outpatient (Routine) - Closed Specialty Diagnoses / Procedures Referred By Contact Referred To Contact Cardiovascular Diseases / Cardiovascular Disease Diagnoses Patent Foramen Ovale (HCC) Procedures Cardiovascular Disease - General cardiology eConsult Jo Root M.D., Ph.D. [address] [place] [phone] Phone: tel: fax: [facility] Referral ID Status Reason Start Date Expiration Date Visits Re quested Visits Authorized [id number] Closed 12/09/2023 12/08/2024 1 1 Encounter Details Date Type Department Care Team (Latest Contact Info) Description 01/22/2024 1:00 PM JOINT CREASER Internal E-Consult Department of Cardiovascular Medicine in [place], [place] [address] [place] [phone] Samuel Love M.B., Ch.B., D.Leonardo. [address] [place] [phone] Patent Foramen Ovale (HCC) Social History Tobacco Use Types Packs/Day Years Used Date Smoking Tobacco: Never Smokeless Tobacco: Never Alcohol Use Standard Drinks/Week Comments Never 0 (1 standard drink = 0.6 oz pur e alcohol) [facility] Utilities Answer Date Recorded [...] living situation today? I have a [facility] place to live 11/07/2023 Comments No Sex and Gender Information Value Date Recorded Sex Assigned at Female 03/13/2023 1:38 PM JOINT CREASER Legal Sex Female 10:08 PM JOINT CREASER Gender Identity Female 03/13/2023 1:42 PM JOINT CREASER Sexual Orientation Straight 03/13/2023 1: 42 PM JOINT CREASER documented as of this encounter Consult Notes * Samuel Love M.B., Ora, Jarad - 01/23/2024 1:00 PM CST SUBJECTIVE REASON FOR CONSULT E-consult, referred by Dr. Jo Berg. 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 To the best of my knowledge, the patient is asymptomatic from the standpoint of the PFO with no history to suggest a paradoxical embolus and no history of deep vein thrombosis. An electrocardiogram on 11/07/23, when she was being investigated for sepsis, demonstrates a sinus tachycardia with nonspecific ST-T wave abnormalities. The AI-ECG dashboard is negative. Transesophageal echocardiography on 11/10/23 demonstrated no evidence of vegetations suggestive of endocarditis, normal left ventricular size and function, no regional wall motion abnormalities, normal right ventricle, and a patent foramen ovale with an atrial septal aneurysm. ASSESSMENT / PLAN In summary, in this asymptomatic patient, no specific management is required in regard to the PFO and atrial septal aneurysm. The relationship between an atrial septal aneurysm and emboli is significant, particularly in the context of cryptogenic stroke. Atrial septal aneurysm, especially when associated with a PFO, increases the risk of paradoxical embolism and systemic embolic events. If in thefuture, the patient should develop deep vein thrombi for any reason, this would certainly be a strong indication for anticoagulation and possible shunt closure in the event that she has symptoms suggestive of paradoxical emboli. For the present, I would regard this as an incidental finding that requires no specific change in her management. Samuel Love M.B.Ch.B., [place]. CT CT Job ID: [id number] T CREASER documented in this encounter Plan of Treatment Upcoming Encounters Date Type Department Care Team (Latest Contact Info) Description 03/02/2024 10:00 AM JOINT CREASER Telemedicine Department of Patient Education in [address] [phone] Sheree Franz M.D. [address] [place] [phone] 03/05/2024 11:30 AM JOINT CREASER Clinical Communication Virtual Review in [place], [place] 200 [place] [address] 03/09/2024 6:40 AM JOINT CREASER Lab Department of Laboratory Medicine and Pathology, [facility] in [address] [phone] Sheree Franz M.D. [address] [place] [phone] 03/09/2024 6:50 AM JOINT CREASER Lab Department of Laboratory Medicine and Pathology, [facility] in [address] [phone] Sheree Franz M.D. [address] [place] [phone] 03/09/2024 7:20 AM JOINT CREASER Ancillary Procedure Department of Cardiovascular Medicine in [address] [phone] Sheree Franz M.D. [address] [place] [phone] 03/09/2024 9:00 AM JOINT CREASER Comprehensive Visit Division of Endocrinology in [address] [phone] Jo Farris M.D. [address] [place] [address] 03/09/2024 10:30 AM JOINT CREASER Comprehensive Visit [facility] in [place], [place] [address] [place] [address] Idalia Hand M.D. [address] [place] [phone] 03/09/2024 12:00 PM JOINT CREASER Appointment Department of Radiology, [facility] in [place], [place] [address] [place] [address] Sheree Franz M.D. [address] [place] [phone] 03/09/2024 2:00 PM JOINT CREASER Virtual Visit Freddy Slade [facility] in [place], [place] [address] [place] [address] Sheree Franz M.D. [address] [place] [phone] 03/09/2024 3:20 PM JOINT CREASER Appointment Department of Cardiovascular Diseases in [place], [place] [address] [place] [address] Sheree Franz M.D. [address] [place] [phone] 03/10/2024 9:00 AM JOINT CREASER Comprehensive Visit [facility] Transplantation and Clinical Regeneration in [place], [place] [address] [place] [address] Shahid Edge M.D. [address] [place] [phone] 03/10/2024 1:30 PM JOINT CREASER Appointment Division of Nephrology and Hypertension, [facility], in [place], [place] [address] [place] [phone] Nicholas Tracey APRN, C.N.P., M.S.N. [address] [place] [phone] 03/11/2024 8:00 AM JOINT CREASER Clinical Support [facility] in [place], [place] [address] [place] [address] Sheree Franz M.D. [address] [place] [phone] Alyse Chang M.S.Kayla., L.I.C.S.W. [address] [place] [phone] 03/11/2024 10:00 AM JOINT CREASER Office Visit Freddy martin [facility] for Transplantation and Clinical Regeneration in [place], [place] [address] [place] [phone] Sheree Franz M.D. [address] [place] [phone] 03/11/2024 11:00 AM JOINT CREASER Comprehensive Visit Freddy Billy veronica [facility] for Transplantation and Clinical Regeneration in [place], [place] [address] [place] [phone] Sheree Franz M.D. [address] [place] [phone] 03/11/2024 1:00 PM JOINT CREASER Nurse Only Freddy martin [facility] Trans[facility] Clinical [facility] in [place], [place] [address] [place] [phone] Sheree Franz M.D. [address] [place] [phone] 03/11/2024 4:00 PM JOINT CREASER Office Visit Freddy Slade [facility] for Transplantation and Clinical Regeneration in [place], [place] [address] [place] [address] Idalia Hand M.D. [address] [place] [phone] 03/23/2024 1:30 PM JOINT CREASER Appointment Department of Radiology, [facility], in [place], [place] [address] [place] [address] Glen Baker M.D. [address] [place] [phone] Discharge Disposition: Home or Self Care 03/23/2024 3:00 PM JOINT CREASER Nurse Only Division of Nephrology and Hypertension in [place], [place] [address] [place] [address] Glen Baker M.D. [address] [place] [phone] documented as of this encounter Visit Diagnoses Diagnosis Patent Foramen Ovale (HCC) documented in this encounter Care Teams Sales Forecast Analyst Relationship Specialty Start Date End Date None Reported, Pcp PCP - General Family Medicine 03/10/23 documented as of this encounter
--- OUTSIDE RECORDS SUMMARY | 2024-02-20 23:57 | XMS_ITS | Encounter Summary ---
Author Organization [facility] Address [address] [place] [address] Care Team Providers Care Chief Information Officer Name Role Phone None Reported, Pcp Primary Care Provider Unavail able Encounter Details Date Type Department Care Team (Late st Contact Info) Description 02/18/2024 Orders Only Division of Nephrology and Hypertension, [facility], in [place], [place] [address] [place] [phone] Nicholas Tracey P, MAGY, C.N.P., M.S.N. [address] [place] [phone] Social History Tobacco Use Types Packs/Day Years Used Date Smoking Tobacco: Never Smokeless Tobacco: Never Alcohol Use Standard Drinks/Week Comments Never 0 (1 standard drink = 0.6 oz pur e alcohol) [facility] Utilities Answer Date Recorded In the past 12 months has [employer], gas, oil, or water [employer] threatened to shut off services in your [...] your living situation today? I have a [facility] place to live 11/07/2023 Comments No Sex and Gender Information Value Date Recorded Sex Assigned at Female 03/13/2023 1:38 PM ROOF DESIGNER Legal Sex Female 10:08 PM ROOF DESIGNER Gender Identity Female 03/13/2023 1:42 PM ROOF DESIGNER Sexual Orientation Straight 03/13/2023 1: 42 PM ROOF DESIGNER documented as of this encounter Plan of Treatment Upcoming Encounters Date Type Department Care Team (Latest Contact Info) Description 03/02/2024 10:00 AM ROOF DESIGNER Telemedicine Department of Patient Education in [place], [place] [address] [place] [phone] Sheree Franz M.D. [address] [place] [phone] 03/05/2024 11:30 AM ROOF DESIGNER Clinical Communication Virtual Review in [place], [place] 200 [place] [address] 03/09/2024 6:40 AM ROOF DESIGNER Lab Department of Laboratory Medicine and Pathology, [facility] in [place], [place] [address] [place] [phone] Sheree Franz M.D. [address] [place] [phone] 03/09/2024 6:50 AM ROOF DESIGNER Lab Department of Laboratory Medicine and Pathology, [facility] in [place], [place] [address] [place] [phone] Sheree Franz M.D. [address] [place] [phone] 03/09/2024 7:20 AM ROOF DESIGNER Ancillary Procedure Department of Cardiovascular Medicine in [place], [place] [address] [place] [phone] Sheree Franz M.D. [address] [place] [phone] 03/09/2024 9:00 AM ROOF DESIGNER Comprehensive Visit Division of Endocrinology in [place], [place] [address] [place] [phone] Jo Farris M.D. [address] [place] [phone] 03/09/2024 10:30 AM ROOF DESIGNER Comprehensive [facility] in [place], [place] [address] [place] [phone] Idalia Hand M.D. [address] [place] [address] 03/09/2024 12:00 PM ROOF DESIGNER Appointment Department of Radiology, [facility], in [place], [place] [address] [place] [address] Sheree Franz M.D. [address] [place] [address] 03/09/2024 2:00 PM ROOF DESIGNER Virtual Visit Freddy Diaz [place] for Transplantation and Clinical Regeneration in [place], [place] [address] [place] [address] Sheree Franz M.D. [address] [place] [phone] 03/09/2024 3:20 PM ROOF DESIGNER Appointment Department of Cardiovascular Diseases in [place], [place] [address] [place] [address] Sheree Franz M.D. [address] [place] [phone] 03/10/2024 9:00 AM ROOF DESIGNER Comprehensive Visit Freddy Diaz [place] for Transplantation and Clinical Regeneration in [place], [place] [address] [place] [address] Shahid Edge M.D. [address] [place] [phone] 03/10/2024 1:30 PM ROOF DESIGNER Appointment Division of Nephrology and Hypertension, [facility], in [place], [place] [address] [place] [address] Nicholas Tracey, IT SECURITY CONSULTANT, C.N.P., M.S.N. [address] [place] [address] 03/11/2024 8:00 AM ROOF DESIGNER Clinical Support Freddy martin [facility] for Transplantation and Clinical Regeneration in [place], [place] [address] [place] [address] Sheree Franz M.D. [address] [place] [phone] Alyse Chang M.S.W., L.IJanieC.S.W. [address] [place] [address] 03/11/2024 10:00 AM ROOF DESIGNER Office Visit Freddy martin [facility] Transplantation and Clinical Regeneration in [place], [place] [address] [place] [address] Sheree Franz M.D. [address] [place] [phone] 03/11/2024 11:00 AM ROOF DESIGNER Comprehensive Visit Freddy martin [facility] Transplantation and Clinical Regeneration in [place], [place] [address] [place] [address] Sheree Franz M.D. [address] [place] [phone] 03/11/2024 1:00 PM ROOF DESIGNER Nurse Only Freddy Slade [facility] Transplantation and Clinical Regeneration in [place], [place] [address] [place] [address] Sheree Franz M.D. [address] [place] [phone] 03/11/2024 4:00 PM ROOF DESIGNER Office Visit Freddy Slade [facility] Transplantation and Clinical Regeneration in [place], [place] [address] [place] [address] Idlaia Hand M.D. [address] [place] [address] 03/23/2024 1:30 PM ROOF DESIGNER Appointment Department of Radiology, [facility], in [place], [place] [address] [place] [address] Glen Baker M.D. [address] [place] [phone] Discharge Disposition: Home or Self Care 03/23/2024 3:00 PM ROOF DESIGNER Nurse Only Division of Nephrology and Hypertension in [place], [place] [address] [place] [address] Glen Baker M.D. [address] [place] [phone] documented as of this encounter Visit Diagnoses Not on filedocumented in this encounter Care Teams Chief Information Officer Relationship Specialty Start Date End Date None Reported, Pcp PCP - General Family Medicine 03/10/23 documented as of this encounter
--- OUTSIDE RECORDS SUMMARY | 2024-02-20 23:57 | XMS_ITS | Encounter Summary ---
Author Organization [facility] Address [address] [place] [address] Care Team Providers Care Hospitalist Name Role Phone None Reported, Pcp Primary Care Provider Unavail able Encounter Details Date Type Department Care Team (Late st Contact Info) Description 01/21/2024 Documentation Division of Nephrology and Hypertension, [facility], in [place], [place] [address] [place] [phone] Nicholas Tracey P, MAGY, C.N.P., M.S.N. [address] [place] [phone] Social History Tobacco Use Types Packs/Day Years Used Date Smoking Tobacco: Never Smokeless Tobacco: Never Alcohol Use Standard Drinks/Week Comments Never 0 (1 standard drink = 0.6 oz pur e alcohol) [facility] Utilities Answer Date Recorded In the past 12 months has e [employer], gas, oil, or water [employer] threatened to shut off services in your [...] your living situation today? I have a [facility] place to live 11/07/2023 Comments No Sex and Gender Information Value Date Recorded Sex Assigned at Female 03/13/2023 1:38 PM CHYRON OPERATOR Legal Sex Female 10:08 PM CHYRON OPERATOR Gender Identity Female 03/13/2023 1:42 PM CHYRON OPERATOR Sexual Orientation Straight 03/13/2023 1: 42 PM CHYRON OPERATOR documented as of this encounter Progress Notes * Nicholas Tracey, AEROSPACE ENGINEER OFFICER ARMAMENT, C.N.P., M.S.N. - 01/21/2024 7:57 AM CST Ms. Ramirez has end stage kidney disease secondary to IgA nephropathy maintained on [facility] hemodialysis since April 2023. She is maintained on [facility] hemodialysis at [facility] on Friday,Friday and Friday afternoon session. Her right IJ tunneled hemodialysis catheter was thrombosed t erickson. Nursing not able to flush the catheter and initiate her dialysis today despite alteplase in [place] this morning. She is agreeable to go to [facility] in [place] for a right IJ tunneled hemodialysis catheter exchange today. She did not take her Warfarin recently. She did not have her breakfast this morning. Catheter exchange is scheduled at 11:30 a.m. in [facility] today. Her daughter Jacob is informed that she needs to have a warehouse associate driver for her trip and she will continue to fast until the procedure. Charge nurse at [facility] dialysis unit is coordinating her session of hemodialysis tomorrow 01/22/2024 at [facility] dialysis unit in [place]. She is scheduled for dialysis fistula placement on 02/05/2024. . ON OPERATOR documented in this encounter Plan of Treatment Upcoming Encounters Date Type Department Care Team (Latest Contact Info) Description 03/02/2024 10:00 AM CHYRON OPERATOR Telemedicine Department of Patient Education in [address] [address] Sheree Franz M.D. [address] [place] [phone] 03/05/2024 11:30 AM CHYRON OPERATOR Clinical Communication Virtual Review in [place], [place] 200 [place] [address] 03/09/2024 6:40 AM CHYRON OPERATOR Lab Department of Laboratory Medicine and Pathology, [facility], in [address] [address] Sheree Franz M.D. [address] [place] [phone] 03/09/2024 6:50 AM CHYRON OPERATOR Lab Department of Laboratory Medicine and Pathology, [facility], in [place], [place] [address] [place], [place] [phone] Sheree Franz M.D. [address] [place] [phone] 03/09/2024 7:20 AM CHYRON OPERATOR Ancillary Procedure Department of Cardiovascular Medicine in [place], [place] [address] [place], [place] [phone] Sheree Franz M.D. [address] [place] [phone] 03/09/2024 9:00 AM CHYRON OPERATOR Comprehensive Visit Division of Endocrinology in [place], [place] [address] [place] [phone] Jo Farris M.D. [address] [place] [phone] 03/09/2024 10:30 AM CHYRON OPERATOR Comprehensive Visit Freddy Diaz [place] for Transplantation and Clinical Regeneration in [place], [place] [address] [place] [phone] Idaila Hand M.D. [address] [place] [phone] 03/09/2024 12:00 PM CHYRON OPERATOR Appointment Department of Radiology, [facility], in [place], [place] [address] [place] [address] Sheree Franz M.D. [address] [place] [phone] 03/09/2024 2:00 PM CHYRON OPERATOR Virtual [facility] in [place], [place] [address] [place] [address] Sheree Franz M.D. [address] [place] [address] 03/09/2024 3:20 PM CHYRON OPERATOR Appointment Department of Cardiovascular Diseases in [place], [place] [address] [place] [address] Sheree Franz M.D. [address] [place] [phone] 03/10/2024 9:00 AM CHYRON OPERATOR Comprehensive Visit Freddy martin [facility] for Transplantation and Clinical Regeneration in [place], [place] [address] [place] [address] Shahid Edge M.D. [address] [place] [phone] 03/10/2024 1:30 PM CHYRON OPERATOR Appointment Division of Nephrology and Hypertension, [facility], in [place], [place] [address] [place] [address] Nicholas Tracey, AEROSPACE ENGINEER OFFICER ARMAMENT, C.N.P., M.S.N. [address] [place] [phone] 03/11/2024 8:00 AM CHYRON OPERATOR Clinical Support Freddy Berlin martin [facility] for Transplantation and Clinical Regeneration in [place], [place] [address] [place] [address] Sheree Franz M.D. [address] [place] [phone] Alyse Chang M.S.W., L.I.C.S.W. [address] [place] [address] 03/11/2024 10:00 AM CHYRON OPERATOR [facility] in [place], [place] [address] [place] [address] Sheree Franz M.D. [address] [place] [phone] 03/11/2024 11:00 AM CHYRON OPERATOR Comprehensive Visit Freddy Billy veronica [facility] Transplantation and Clinical Regeneration in [place], [place] [address] [place] [address] Sheree Franz M.D. [address] [place] [phone] 03/11/2024 1:00 PM CHYRON OPERATOR Nurse Only [facility] in [place], [place] [address] [place] [address] Sheree Franz M.D. [address] [place] [phone] 03/11/2024 4:00 PM CHYRON OPERATOR Office Visit Freddy Berlin [facility] Transplantation and Clinical Regeneration in [place], [place] [address] [place] [address] Idalia Hand M.D. [address] [place] [phone] 03/23/2024 1:30 PM CHYRON OPERATOR Appointment Department of Radiology, [facility], in [place], [place] [address] [place] [address] Glen Baker M.D. [address] [place] [phone] Discharge Disposition: Home or Self Care 03/23/2024 3:00 PM CHYRON OPERATOR Nurse Only Division of Nephrology and Hypertension in [place], [place] [address] [place] [address] Glen Baker M.D. 200 [place] [address] documented as of this encounter Visit Diagnoses Not on filedocumented in this encounter Care Teams Hospitalist Relationship Specialty Start Date End Date None Reported, Pcp PCP - General Family Medicine 03/10/23 documented as of this encounter
--- OUTSIDE RECORDS SUMMARY | 2024-02-20 23:57 | XMS_ITS | Encounter Summary ---
Author Organization [facility] Address [address] [place] [address] Care Team Providers Care Production Lapping Machine Operator Name Role Phone None Reported, Pcp Primary Care Provider Unavail able Reason for Referral * Outpatient (Routine) - Closed Specialty Diagnoses / Procedures Referred By Crow olivo Referred To Contact Radiology Diagnoses Complication Dialysis Catheter Subsequent Chronic Failure Renal End Stage Renal Disease Dialysis Dependent (HCC) Procedures IR Dialysis / High Flow Catheter Exchange Nicholas Tracey APRN, C.N.P., M.S.N. [address] [place] [phone] Phone: tel: fax: [facility] Referral ID Status Reason Start Date Expiration Date Visits Re quested Visits Authorized [id number] Closed 02/06/2024 02/05/2025 1 1 PULLER Encounter Details Date Type Department Care Team (Late st Contact Info) Description 02/06/2024 Orders Only Division of Nephrology and Hypertension, [facility], in [place], [place] [address] [place] [phone] Nicholas Tracey APRN, C.N.P., M.S.N. [address] [place] [phone] Complication Dialysis Catheter Subsequent (Primary Dx); Chronic Failure Renal End Stage Renal Disease Dialysis Dependent (HCC) Social History Tobacco Use Types Packs/Day Years Used Date Smoking Tobacco: Never Smokeless Tobacco: Never Alcohol Use Standard Drinks/Week Comments Never 0 (1 standard drink = 0.6 oz pur e alcohol) [facility] Utilities Answer Date Recorded In the past 12 months has e [employer], gas, oil, or water [employer] threatened to shut off services in your [...] a [facility] to live 11/07/2023 Comments No Sex and Gender Information Value Date Recorded Sex Assigned at Female 03/13/2023 1:38 PM POT PULLER Legal Sex Female 10:08 PM POT PULLER Gender Identity Female 03/13/2023 1:42 PM POT PULLER Sexual Orientation Straight 03/13/2023 1: 42 PM POT PULLER documented as of this encounter Plan of Treatment Upcoming Encounters Date Type Department Care Team (Latest Contact Info) Description 03/02/2024 10:00 AM POT PULLER Telemedicine Department of Patient Education in [place], [place] [address] [place] [phone] Sheree Franz M.D. [address] [place] [phone] 03/05/2024 11:30 AM POT PULLER Clinical Communication Virtual Review in [place], [place] 200 [place] [phone] 03/09/2024 6:40 AM POT PULLER Lab Department of Laboratory Medicine and Pathology, [place], [place] [address] [place] [phone] Sheree Franz M.D. [address] [place] [phone] 03/09/2024 6:50 AM POT PULLER Lab Department of Laboratory Medicine and Pathology, [facility] in [place], [place] [address] [place] [phone] Sheree Franz M.D. [address] [place] [phone] 03/09/2024 7:20 AM POT PULLER Ancillary Procedure Department of Cardiovascular Medicine in [place], [place] [address] [place] [address] Sheree Franz M.D. [address] [place] [phone] 03/09/2024 9:00 AM POT PULLER Comprehensive Visit Division of Endocrinology in [place], [place] [address] [place] [phone] Jo Farris M.D. [address] [place] [phone] 03/09/2024 10:30 AM POT PULLER Comprehensive Visit [facility] in [place], [place] [address] [place] [address] Idalia Hand M.D. [address] [place] [phone] 03/09/2024 12:00 PM POT PULLER Appointment Department of Radiology, [facility], in [place], [place] [address] [place] [phone] Sheree Franz M.D. [address] [place] [phone] 03/09/2024 2:00 PM POT PULLER Virtual Visit [facility] in [place], [place] [address] [place] [phone] Sheree Franz M.D. [address] [place] [phone] 03/09/2024 3:20 PM POT PULLER Appointment Department of Cardiovascular Diseases in [place], [place] [address] [place] [address] Sheree Franz M.D. [address] [place] [phone] 03/10/2024 9:00 AM POT PULLER [facility] in [place], [place] [address] [place] [address] Shahid Edge M.D. [address] [place] [phone] 03/10/2024 1:30 PM POT PULLER Appointment Division of Nephrology and Hypertension, [facility], in [place], [place] [address] [place] [address] Nicholas Tracey, MAGY, C.N.P., M.S.N. [address] [place] [phone] 03/11/2024 8:00 AM POT PULLER Clinical Support [facility] Transplantation and Clinical Regeneration in [place], [place] [address] [place] [address] Sheree Franz M.D. [address] [place] [phone] Alyse Chang M.SInessa, L.I.C.S.W. [address] [place] [phone] 03/11/2024 10:00 AM POT PULLER [facility] [place] [place] Transplantation and Clinical Regeneration in [place], [place] [address] [place] [address] Sheree Franz M.D. [address] [place] [phone] 03/11/2024 11:00 AM POT PULLER [facility] [place] [place] Transplantation and Clinical Regeneration in [place], [place] [address] [place] [phone] Sheree Franz M.D. [address] [place] [phone] 03/11/2024 1:00 PM POT PULLER Nurse Only Freddy [facility] Transplantation and Clinical Regeneration in [place], [place] [address] [place] [phone] Sheree Franz M.D. [address] [place] [phone] 03/11/2024 4:00 PM POT PULLER [facility] Clinical [facility] in [place], [place] [address] [place] [phone] Idalia Hand M.D. [address] [place] [phone] 03/23/2024 1:30 PM POT PULLER Appointment Department of Radiology, [facility], in [place], [place] [address] [place] [phone] Glen Baker M.D. [address] [place] [phone] Discharge Disposition: Home or Self Care 03/23/2024 3:00 PM POT PULLER Nurse Only Division of Nephrology and Hypertension in [place], [place] [address] [place] [phone] Glen Baker M.D. [address] [place] [phone] documented as of this encounter Results * IR Dialysis / High Flow Catheter Exchange (02/06/2024 1:12 PM POT PULLER) Anatomical Region Laterality Modality Body, Vascular Interventiona l RST LOS, Vascular Interventional ARZ LOS, Vascular Interventional FLA LOS N/A X-Ray Angiography Impressions 02/06/2024 1:46 PM POT PULLER Exchange of a tunneled dialysis catheter, ready for use. NR Narrative 02/06/2024 1:46 PM POT PULLER EXAM: IR DIALYSIS / HIGH FLOW CATHETER EXCHANGE CLINICAL HISTORY: 48-year-old female patient with recurring catheter dysfunction and subsequent exchanges. TECHNIQUE: The patient was placed supine on the fluoroscopy table. The right neck, chest, and indwelling catheter were prepared and draped in sterile fashion. Fluoroscopic electrical assistant image demonstrates a tunneled dialysis catheter in [...] were prepared and draped insterile fashion. Fluoroscopic electrical assistant image demonstrates a tunneled dialysiscatheter in expected [...] tunneled dialysis catheter, ready for use. NR us Nicholas Tracey APRN C.N.P., M.S.N. IMG IR PROCEDURE S Final Result documented in this encounter Visit Diagnoses Diagnosis Complication Dialysis Catheter Subsequent- Primary Chronic Failure Renal End Stage Renal Disease Dialysis Dependent (HCC) Complication Dialysis Catheter Subsequent Chronic Failure Renal End Stage Renal Disease Dialysis Dependent (HCC) documented in this encounter Care Teams Production Lapping Machine Operator Relationship Specialty Start Date End Date None Reported, Pcp PCP - General Family Medicine 03/10/23 documented as of this encounter
--- OUTSIDE RECORDS SUMMARY | 2024-02-20 23:57 | XMS_ITS | Encounter Summary ---
Author Organization [facility] Address [address] [place] [address] Care Team Providers Care Filament Tester Name Role Phone None Reported, Pcp Primary Care Provider Unavail able Encounter Details Date Type Department Care Team (Late st Contact Info) Description 01/30/2024 Clinical Communication Division of Nephrology and Hypertension in [place], [place] [address] [place] [address] Jo Root M.D., Ph.D. [address] [place] [phone] Social History Tobacco Use Types Packs/Day Years Used Date Smoking Tobacco: Never Smokeless Tobacco: Never Alcohol Use Standard Drinks/Week Comments Never 0 (1 standard drink = 0.6 oz pur e alcohol) [facility] Utilities Answer Date Recorded In the past 12 months has [employer], gas, oil, or water [employer] threatened to shut off services in your [...] your living situation today? I have a [facility] place to live 11/07/2023 Comments No Sex and Gender Information Value Date Recorded Sex Assigned at Female 03/13/2023 1:38 PM SHOE COBBLER Legal Sex Female 10:08 PM SHOE COBBLER Gender Identity Female 03/13/2023 1:42 PM SHOE COBBLER Sexual Orientation Straight 03/13/2023 1: 42 PM SHOE COBBLER documented as of this encounter Miscellaneous Notes * Telephone Encounter - Jo Root M.D., Ph.D. - 01/30/2024 9:55 AM CST BERRY for DIALYSIS ACCESS PROCEDURE (To be done within 3 months prior to the planned procedure) [x] Patient medically stable for her planned surgery [] Patient not medically stable for surgery Comments: Patient is in her usual health with no signs of illness Anticoagulation/blood thinner Instruction (if applicable): Warfarin 2 mg has been started on 12/20/2023 for dialysis catheter clotting, in an attempt to improve catheter functionality. She has been instructed to hold warfarin on 01/31/2024 (5 days) prior to procedure. For Diabetics Last HbA1c (required within 3 months of the procedure): Lab Results Component Value Date HGBA1C 5.6 07/29/2018 Diabetic Instruction (if applicable): No history of diabetes Serum Potassium - Required within 1 week of the procedure for non-dialysis patient [goal: 5.2 mEq/L or less] - Required the day of the procedure for dialysis patients with history of hyperkalemia CBC and Electrolytes (Required within 3 months): Reviewed Lab Results Component Value Date HGB 10.7 (A) 11/19/2023 WBC 9.1 11/19/2023 PLT 245 11/19/2023 NA 138 11/12/2023 BICARB 19 (L) 11/12/2023 BUN 83 (H) 11/12/2023 CREATININE 6.12 (A) 11/19/2023 COBBLER COBBLER documented in this encounter Plan of Treatment Upcoming Encounters Date Type Department Care Team (Latest Contact Info) Description 03/02/2024 10:00 AM SHOE COBBLER Telemedicine Department of Patient Education in [place], [place] [address] [place] [phone] Sheree Franz M.D. [address] [place] [phone] 03/05/2024 11:30 AM SHOE COBBLER Clinical Communication Virtual Review in [place], [place] 200 [place] [address] 03/09/2024 6:40 AM SHOE COBBLER Lab Department of Laboratory Medicine and Pathology, [facility] in [place], [place] [address] [place] [address] Sheree Franz M.D. [address] [place] [phone] 03/09/2024 6:50 AM SHOE COBBLER Lab Department of Laboratory Medicine and Pathology, [facility], in [place], [place] [address] [place] [address] Sheree Franz M.D. [address] [place] [phone] 03/09/2024 7:20 AM SHOE COBBLER Ancillary Procedure Department of Cardiovascular Medicine in [place], [place] [address] [place] [address] Sheree Franz M.D. [address] [place] [phone] 03/09/2024 9:00 AM SHOE COBBLER Comprehensive Visit Division of Endocrinology in [place], [place] [address] [place] [phone] Jo Farris M.D. [address] [place] [phone] 03/09/2024 10:30 AM SHOE COBBLER Comprehensive [facility] in [place], [place] [address] [place] [phone] Idalia Hand M.D. [address] [place] [phone] 03/09/2024 12:00 PM SHOE COBBLER Appointment Department of Radiology, [facility], in [place], [place] [address] [place] [address] Sheree Franz M.D. [address] [place] [phone] 03/09/2024 2:00 PM SHOE COBBLER Virtual Visit [facility]dy [facility] for Transplantation and Clinical Regeneration in [place], [place] [address] [place] [address] Sheree Franz M.D. [address] [place] [phone] 03/09/2024 3:20 PM SHOE COBBLER Appointment Department of Cardiovascular Diseases in [place], [place] [address] [place] [address] Sheree Franz M.D. [address] [place] [phone] 03/10/2024 9:00 AM SHOE COBBLER Comprehensive Visit [facility] Transplantation and Clinical Regeneration in [place], [place] [address] [place] [address] Shahid Edge M.D. [address] [place] [phone] 03/10/2024 1:30 PM SHOE COBBLER Appointment Division of Nephrology and Hypertension, [facility], in [place], [place] [address] [place] [address] Nicholas Tracey, MAGY, C.N.P., M.S.N. [address] [place] [phone] 03/11/2024 8:00 AM SHOE COBBLER Clinical Support [facility] for Transplantation and Clinical Regeneration in [place], [place] [address] [place] [address] Sheree Franz M.D. [address] [place] [phone] Alyse Chang M.S.W., Nieves [address] [place] [phone] 03/11/2024 10:00 AM SHOE COBBLER [facility] in [place], [place] [address] [place] [phone] Sheree Franz M.D. [address] [place] [phone] 03/11/2024 11:00 AM SHOE COBBLER [facility] in [place], [place] [address] [place] [address] Sheree Franz M.D. [address] [place] [phone] 03/11/2024 1:00 PM SHOE COBBLER Nurse Only [facility] Clinical [facility]eneration in [place], [place] [address] [place] [address] Sheree Franz M.D. [address] [place] [phone] 03/11/2024 4:00 PM SHOE COBBLER Office Visit [facility] for Transplantation and Clinical Regeneration in [place], [place] [address] [place] [address] Idalia Hand M.D. [address] [place] [phone] 03/23/2024 1:30 PM SHOE COBBLER Appointment Department of Radiology, [facility], in [place], [place] [address] [place] [address] Glen Baker M.D. [address] [place] [phone] Discharge Disposition: Home or Self Care 03/23/2024 3:00 PM SHOE COBBLER Nurse Only Division of Nephrology and Hypertension in [place], [place] [address] [place] [address] Glen Baker M.D. [address] [place] [address] documented as of this encounter Visit Diagnoses Not on filedocumented in this encounter Care Teams Filament Tester Relationship Specialty Start Date End Date None Reported, Pcp PCP - General Family Medicine 03/10/23 documented as of this encounter
--- OUTSIDE RECORDS SUMMARY | 2024-02-20 23:57 | XMS_ITS | Encounter Summary ---
Author Organization [facility] Address [address] [place] [address] Care Team Providers Care Philatelic Consultant Name Role Phone None Reported, Pcp Primary Care Provider Unavail able Reason for Visit * Auth/Cert (Routine) Specialty Diagnoses / Procedures Referred By Crow olivo Referred To Contact Diagnoses Chronic Kidney Disease Stage 5 GFR Less Than 15 Dialysis Dependent (HCC) Chronic Kidney Disease Stage 5 GFR Less Than 15 Dialysis Dependent (HCC) [N18.6, Z99.2] Procedures MI ARTERIOVENOUS ANAST OPN DIRECT CREATION FISTULA RADIOCEPHALIC ARTERIOVENOUS Glen Baker M.D. [address] [place] [address] Phone: tel: fax: Referral ID Status Reason Start Date Expiration Date Visits Re quested Visits Authorized [id number] 1 1 Encounter Details Date Type Department Care Team (Latest Contact Info) Description 02/05/2024 5:41 AM ACCOUNTS RECEIVABLE SPECIALIST - 02/05/2024 3:22 PM ACCOUNTS RECEIVABLE SPECIALIST Hospital Encounter [facility] [address] [place] [address] Glen Baker M.D. [address] [place] [address] Discharge Disposition: Home or Self Care Social History Tobacco Use Types Packs/Day Years Used Date Smoking Tobacco: Never Smokeless Tobacco: Never Alcohol Use Standard Drinks/Week Comments Never 0 (1 standard drink = 0.6 oz pur e alcohol) [facility] Utilities Answer Date Recorded In the [...] living situation today? I [facility] a [facility] place to live 11/07/2023 Comments No Sex and Gender Information Value Date Recorded Sex Assigned at Female 03/13/2023 1:38 PM ACCOUNTS RECEIVABLE SPECIALIST Legal Sex Female 10:08 PM ACCOUNTS RECEIVABLE SPECIALIST Gender Identity Female 03/13/2023 1:42 PM ACCOUNTS RECEIVABLE SPECIALIST Sexual Orientation Straight 03/13/2023 1: 42 PM ACCOUNTS RECEIVABLE SPECIALIST documented as of this encounter Last Filed Vital Signs Vital Sign Reading Time Taken Comments Blood Pressure 132/95 02/05/2024 3:05 PM ACCOUNTS RECEIVABLE SPECIALIST Pulse 79 02/05/2024 2:55 PM ACCOUNTS RECEIVABLE SPECIALIST Temperature 36.6 C (97.9 F) 02/05/2024 3:15 PM ACCOUNTS RECEIVABLE SPECIALIST Respiratory Rate 17 02/05/2024 2:00 PM ACCOUNTS RECEIVABLE SPECIALIST Oxygen Saturation 96% 02/05/2024 2:55 PM ACCOUNTS RECEIVABLE SPECIALIST Inhaled Oxygen Concentration - - Weight 107 kg (235 lb 7.2 oz) 02/05/2024 6:35 AM ACCOUNTS RECEIVABLE SPECIALIST Height 165.1 cm (5' 5) 02/05/2024 6:35 AM ACCOUNTS RECEIVABLE SPECIALIST Body Mass Index 39.18 02/05/2024 6:35 AM ACCOUNTS RECEIVABLE SPECIALIST documented in this encounter Medications at Time [...] clinic in 6-8 weeks with ultrasound evaluation. UNTS RECEIVABLE SPECIALIST UNTS RECEIVABLE SPECIALIST documented in this encounter OR Notes * Op Note - Deepa Dash M.B.B.S., M.D. 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 at 02/05/2024 12:02 PM ACCOUNTS RECEIVABLE SPECIALIST UNTS RECEIVABLE SPECIALIST UNTS RECEIVABLE SPECIALIST * Brief Op Note - Deepa Dash M.B.B.S., M.D. - 02/05/2024 9:30 AM ACCOUNTS RECEIVABLE SPECIALIST Pre-op Diagnosis Chronic Kidney Disease Stage 5 GFR Less Than 15 Dialysis Dependent (HCC) Post-op Diagnosis Chronic Kidney Disease Stage 5 GFR Less Than 15 Dialysis Dependent (HCC) 3 mm cephalic vein and 3.1 radial artery Dc home Ramesh Fernandez M.D. UNTS RECEIVABLE SPECIALIST documented in this encounter Plan of Treatment Upcoming Encounters Date Type Department Care Team (Latest Contact Info) Description 03/02/2024 10:00 AM ACCOUNTS RECEIVABLE SPECIALIST Telemedicine Department of Patient Education in [address] [phone] Sheree Franz M.D. [address] [place] [phone] 03/05/2024 11:30 AM ACCOUNTS RECEIVABLE SPECIALIST Clinical Communication Virtual Review in [address] [phone] 03/09/2024 6:40 AM ACCOUNTS RECEIVABLE SPECIALIST Lab Department of Laboratory Medicine and Pathology, [address] [phone] Sheree Franz M.D. [address] [place] [phone] 03/09/2024 6:50 AM ACCOUNTS RECEIVABLE SPECIALIST Lab Department of Laboratory Medicine and Pathology, [address] [address] Sheree Franz M.D. [address] [place] [phone] 03/09/2024 7:20 AM ACCOUNTS RECEIVABLE SPECIALIST Ancillary Procedure Department of Cardiovascular Medicine in [address] [place] [address] Sheree Franz M.D. [address] [place] [phone] 03/09/2024 9:00 AM ACCOUNTS RECEIVABLE SPECIALIST Comprehensive Visit Division of Endocrinology in [place], [place] [address] [place] [address] Jo Farris M.D. [address] [place] [phone] 03/09/2024 10:30 AM ACCOUNTS RECEIVABLE SPECIALIST Comprehensive Visit [facility] in [place], [place] [address] [place] [address] Idalia Hand M.D. [address] [place] [phone] 03/09/2024 12:00 PM ACCOUNTS RECEIVABLE SPECIALIST Appointment Department of Radiology, [facility], in [place], [place] [address] [place] [address] Sheree Franz M.D. [address] [place] [phone] 03/09/2024 2:00 PM ACCOUNTS RECEIVABLE SPECIALIST Virtual Visit [facility] in [place], [place] [address] [place] [address] Sheree Franz M.D. [address] [place] [phone] 03/09/2024 3:20 PM ACCOUNTS RECEIVABLE SPECIALIST Appointment Department of Cardiovascular Diseases in [place], [place] [address] [place] [address] Sheree Franz M.D. [address] [place] [phone] 03/10/2024 9:00 AM ACCOUNTS RECEIVABLE SPECIALIST [facility] in [place], [place] [address] [place] [address] Shahid Edge M.D. [address] [place] [phone] 03/10/2024 1:30 PM ACCOUNTS RECEIVABLE SPECIALIST Appointment Division of Nephrology and Hypertension, [facility], in [place], [place] [address] [place] [address] Nicholas Tracey, MAGY, C.N.P., M.S.N. [address] [place] [phone] 03/11/2024 8:00 AM ACCOUNTS RECEIVABLE SPECIALIST Clinical Support [facility] in [place], [place] [address] [place] [address] Sheree Franz M.D. [address] [place] [phone] Alyse Chang M.S.Fátima, L.I.C.S.W. [address] [place] [phone] 03/11/2024 10:00 AM ACCOUNTS RECEIVABLE SPECIALIST Office Visit [facility] for [facility] Clinical Reg[facility] in [place], [place] [address] [place] [address] Sheree Franz M.D. [address] [place] [phone] 03/11/2024 11:00 AM ACCOUNTS RECEIVABLE SPECIALIST Comprehensive Visit [facility] in [place], [place] [address] [place] [address] Sheree Franz M.D. [address] [place] [address] 03/11/2024 1:00 PM ACCOUNTS RECEIVABLE SPECIALIST Nurse Only Freddy Slade [facility] Transplantation and Clinical Regeneration in [place], [place] [address] [place] [address] Sheree Franz M.D. [address] [place] [phone] 03/11/2024 4:00 PM ACCOUNTS RECEIVABLE SPECIALIST Office [facility] in [place], [place] [address] [place] [address] Idalia Hand M.D. [address] [place] [phone] 03/23/2024 1:30 PM ACCOUNTS RECEIVABLE SPECIALIST Appointment Department of Radiology, [facility], in [place], [place] [address] [place] [address] Glen Baker M.D. [address] [place] [phone] Discharge Disposition: Home or Self Care 03/23/2024 3:00 PM ACCOUNTS RECEIVABLE SPECIALIST Nurse Only Division of Nephrology and Hypertension in [place], [place] [address] [place] [phone] Glen Baker M.D. [address] [place] [phone] documented as of this encounter Procedures Procedure Name Priority Date/Time Associated Diagnosis Comments CREATION FISTULA RADIOCEPHALIC ARTERIOVENOUS 02/05/2024 8:35 AM ACCOUNTS RECEIVABLE SPECIALIST Chronic Kidney Disease Stage 5 GFR Less Than 15 Dialysis Dependent (HCC) PROTHROMBIN TIME (PT), P STAT 02/05/2024 7:44 AM ACCOUNTS RECEIVABLE SPECIALIST BASIC METABOLIC PANEL, S/P STAT 02/05/2024 7:44 AM ACCOUNTS RECEIVABLE SPECIALIST documented in this encounter Results * Prothrombin Time (PT) (02/05/2024 7:44 AM ACCOUNTS RECEIVABLE SPECIALIST) Prothrombin Time, P 11.5 9.4 - 12.5 sec 02/05/2024 7:58 AM ACCOUNTS RECEIVABLE SPECIALIST STMA INR 1.0 0.9 - 1.1 02/05/2024 7:58 AM ACCOUNTS RECEIVABLE SPECIALIST STMA Comment: ----ADDITIONAL INFORMATION---- Standard intensity warfarin therapeutic range: 2.0 to 3.0 High intensity warfarin therapeutic range: 2.5 to 3.5 Blood (Blood, Venous) 02/05/2024 7:44 AM ACCOUNTS RECEIVABLE SPECIALIST 02/05/2024 7:50 AM ACCOUNTS RECEIVABLE SPECIALIST us Roseline Spears AQUATIC ECOLOGIST, SERVICE ADMINISTRATOR LAB BLOOD ADD-ON Alley l Result [facility] [address] [place] [address], [facility] [address] [place] [address] * (ABNORMAL) Basic Metabolic Panel (02/05/2024 7:44 AM ACCOUNTS RECEIVABLE SPECIALIST) Pathologist [facility] Potassium, P 4.7 3.6 - 5.2 mmol/L 02/05/2024 8:45 AM ACCOUNTS RECEIVABLE SPECIALIST DTL Sodium, P 137 135 - 145 mmol/L 02/05/2024 8:45 AM ACCOUNTS RECEIVABLE SPECIALIST DTL Chloride, P 100 98 - 107 mmol/L 02/05/2024 8:45 AM ACCOUNTS RECEIVABLE SPECIALIST DTL Bicarbonate, P 21(L) 22 - 29 mmol/L 02/05/2024 8:45 AM ACCOUNTS RECEIVABLE SPECIALIST DTL Anion Gap, P 16(H) 7 - 15 02/05/2024 8:45 AM ACCOUNTS RECEIVABLE SPECIALIST DTL BUN (Blood Urea Nitrogen), P 49(H) 6 - 21 mg/dL 02/05/2024 8:45 AM ACCOUNTS RECEIVABLE SPECIALIST DTL Creatinine 5.72(H) 0.59 - 1.04 mg/dL 02/05/2024 8:45 AM ACCOUNTS RECEIVABLE SPECIALIST DTL Estimated GFR (eGFR) <15(L) >=60 mL/min/BSA 02/05/2024 8:45 AM ACCOUNTS RECEIVABLE SPECIALIST DTL Comment: Estimated GFR calculated using the 2020 CKD_EPI creatinine equation. Calcium, Total, P 8.6 8.6 - 10.0 mg/dL 02/05/2024 8:45 AM ACCOUNTS RECEIVABLE SPECIALIST DTL Glucose, P 103 70 - 140 mg/dL 02/05/2024 8:45 AM ACCOUNTS RECEIVABLE SPECIALIST DTL Blood (Blood, Venous) 02/05/2024 7:44 AM ACCOUNTS RECEIVABLE SPECIALIST 02/05/2024 7:59 AM ACCOUNTS RECEIVABLE SPECIALIST us Roseline Spears APRN, CRNA LAB BLOOD ADD-ON Alley enriquez Result [address] [address], [facility] [address] [address] documented in this encounter Visit Diagnoses Diagnosis Chronic Kidney Disease Stage 5 GFR Less Than 15 Dialysis Dependent (HCC)- Primary documented in this encounter Admitting Diagnoses Diagnosis [...] of 200 mcg Given 02/05/2024 12:42 PM ACCOUNTS RECEIVABLE SPECIALIST 25 mcg Given 02/05/2024 12:22 PM ACCOUNTS RECEIVABLE SPECIALIST 25 mcg Given 02/05/2024 12:15 PM ACCOUNTS RECEIVABLE SPECIALIST 25 mcg gentamicin-polymixin B 20 mcg/mL-500 units/mL irrigation bottle (DABS Modified Irrigation) irrigation, Once in surgery, OR use only, Starting on Liv 02/05/24 at 0715, For 1 dose, Intra-Op, *IRRIGATION ONLY* granisetron (PF) injection 1 mg (KytriL) 1 mg, intravenous, Once as needed, nausea, vomiting, Starting on Liv 02/05/24 at 1203, For 1 dose, PACU (only), If patient does not respond to ondansetron or haloperidol. (Order of antiemetic administration - ondansetron then haloperidol or droperidol then granisetron) Given 02/05/2024 12:08 PM ACCOUNTS RECEIVABLE SPECIALIST 1 mg heparin 10 Units/mL in NaCl 0.9% 500 mL flush solution miscellaneous, Once in surgery, OR use only, Starting on Liv 02/05/24 at 0715, For 1 dose, Intra-Op, *Flush/Irrigation use only* metoprolol tablet 12.5 mg (Lopressor) 12.5 mg, [...] Catheter, when no infusion to maintain patency documented in this encounter Active and Recently Administered Medications Times are shown in ACCOUNTS RECEIVABLE SPECIALIST. Scheduled Medication Order 02/03/2024 02/04/2024 02/05/2024 ceFAZolin [...] surgical 0917 (Given - Provid er: Roseline Spears, MAGY, MAVIS) sodium chloride 0.9 % injection 3 [...] 200 mcg 1210 (Given - Provid er: Ruben Murphy., R.N.)1215 (Given - Provider: Citlali Murphy, R.N.)1222 (Given - Provider: Citlali Murphy, R.N.)1242 (Given - Provider: Citlali Murphy, R.N.) gelatin sponge,absorb-porcine 50 sponge (Gelfoam) (CANCELED) As needed, Starting on Liv 02/05/24 at 1100, Intra-Op 1100 (Given - Provid er: Ramesh Fernandez M.D. - Comment: Mixed with Thrombin) gentamicin-polymixin [...] then granisetron) 1208 (Given - Provid er: Citlali Murphy, R.N.) haloperidol lactate injection 1 mg (HaldoL) [...] flush (CANCELED) As needed, Starting on Liv 02/05/24 at 1120, Intra-Op 1120 (Given - Provid er: Ramesh Fernandez, [place] - Comment: left arm irrigation) metoprolol tablet [...] sponge) documented in this encounter Care Teams Philatelic Consultant Relationship Specialty Start Date End Date None Reported, Pcp PCP - General Family Medicine 03/10/23 documented as of this encounter
--- OUTSIDE RECORDS SUMMARY | 2024-02-20 23:57 | XMS_ITS | Encounter Summary ---
Author Organization [facility] Address [address] [place] [address] Care Team Providers Care Coke Crane Operator Name Role Phone None Reported, Pcp Primary Care Provider Unavail able Reason for Visit * Auth/Cert (Routine) Specialty Diagnoses / Procedures Referred By Crow olivo Referred To Contact Diagnoses Chronic Kidney Disease Stage 5 GFR Less Than 15 Dialysis Dependent (HCC) Chronic Kidney Disease Stage 5 GFR Less Than 15 Dialysis Dependent (HCC) [N18.6, Z99.2] Procedures CT ARTERIOVENOUS ANAST OPN DIRECT CREATION FISTULA RADIOCEPHALIC ARTERIOVENOUS Glen Baker M.D. [address] [place] [address] Phone: tel: fax: Referral ID Status Reason Start Date Expiration Date Visits Re quested Visits Authorized [id number] 1 1 Encounter Details Date Type Department Care Team (Late st Contact Info) Description 02/05/2024 8:50 AM CASE MANAGEMENT COORDINATOR Anesthesia Event RST ROMB MAIN OR [address] [place] [phone] Tao Bello M.D. [address] [place] [phone] Anesthesia Record Procedure Summary Procedure Name Responsible Anesthesiologist Anesthesia Start Time Anesthesia Stop Time CREATION FISTULA RADIOCEPHALIC ARTERIOVENOUS (Left) Tao Bello M.D. 02/05/24 0850 02/05/24 1142 Events Date Time Event Comment 02/05/2024 0850 An Start Machine/Equipme nt Checked Infection Precautions Followed Procedure/Site Verified NPO Status Verified Supine Standard ASA Monitors Applied 0855 An Induction 0858 An Intubation 0858 Turnover to Proceduralist 0930 Proc Start 1101 Anes CS Handoff I, Caterina gamez, CCRN, attest that I have reconciled the controlled substances and that I have reviewed all the significant information with the next anesthesia provider assuming care of this patient. 1127 Proc Fin 1129 Turnover to ANE Staff 1133 Airway Removal Criteria Met 1133 Extubation/Airway Removed 1135 an stop data 1142 An End I completed my handoff to the receiving staff during which we 1. Identified the patient 2. Identified the responsible provider 3. Reviewed the pertinent medical history 4. Discussed the surgical course 5. Reviewed intra-op anesthesia management and issues during anesthesia 6. Set expectations for post-procedure period 7. Allowed opportunity for questions and acknowledgement of understanding. Meds Name Total fentanyl injection 50 mcg/mL 225 mcg lidocaine 2% (mg) injection 100 mg phenylephrine 100 mcg/mL injection 1,000 mcg ondansetron 4 mg/2 mL injection 4 mg propofol 10 mg/mL injection 280 mg acetaminophen injection 1,000 mg/100 mL (RESTRICTED) 1,000 mg dexAMETHasone (Decadron) injection 4 mg/ mL 4 mg ceFAZolin injection 2,000 mg (Ancef) 2 g heparin injection 1,000 Units/mL 2,000 U nits phenylephrine infusion 80 mcg/mL in NaCl 0.9% 250 mL (premix/CNR) 1.06 mg NaCl 0.9% free drip 350 mL * Agents No agents on file. * Blood No blood administrations on file. Lines, Drains, and Airways Type Details Placement Removal Wound 02/05/24; Incision; Full thickness; Arm; Left 02/05/24 0000 by Roman Robledo, RJanieN. Hemodialysis AV Access Placement Date: 02/05/24; Placement Time: 1130 (by OR staff) 02/05/24 1130 by Fiona Xiong M.SAaron, R.N. Hemodialysis Catheter Placement Date: (exchanged); Placement Time: 1437; Catheter Length (cm): 19 cm; Secured: Sutured; Removal Date: 02/06/24; Removal Time: 1305 01/21/24 1437 by Doris Castillo R.N. 02/06/24 1305 by Ken Berry R.N. Peripheral IV Placement Date: 02/05/24; Placement Time: 621; Catheter Size: 20 G; Orientation: Right; Location: Hand; Site Prep: Chlorhexidine (Preferred); Technique: Anatomical landmarks; Inserted by: MALINA; Insertion Attempts: 1; Removal Date: 02/05/24; Removal Time: 1514; Removal Reason: Patient discharged 02/05/24 06 by Nivia Spears 02/05/24 151 by Anya Spears R.N. Supraglottic Airway Placement Date: 02/05/24; Placement Time: 857 (created via procedure documentation); Mask Ventilation: Not attempted; Brand: Unique; Size: 4; Removal Date: 02/05/24; Removal Time: 1133 02/05/24 0858 by Roseline Spears APRN, CRNA 02/05/24 1133 by Roseline Spears APRN, CRNA documented in this encounter Social History Tobacco Use Types Packs/Day Years Used Date Smoking Tobacco: Never Smokeless Tobacco: Never Alcohol Use Standard Drinks/Week Comments Never 0 (1 standard drink = 0.6 oz pur e alcohol) [facility] Utilities Answer Date Recorded In the past 12 months has [employer], gas, oil, or water [employer] threatened to shut off services in [...] [facility] to live 11/07/2023 Comments No Sex and Gender Information Value Date Recorded Sex Assigned at Female 03/13/2023 1:38 PM CASE MANAGEMENT COORDINATOR Legal Sex Female 10:08 PM CASE MANAGEMENT COORDINATOR Gender Identity Female 03/13/2023 1:42 PM CASE MANAGEMENT COORDINATOR Sexual Orientation Straight 03/13/2023 1: 42 PM CASE MANAGEMENT COORDINATOR documented as of this encounter OR Notes * Anesthesia Postprocedure Evaluation - Tao Bello M.D. - 02/06/2024 9:15 AM CST Patient: Leny Ramirez Procedure Summary Date: 02/05/24 Room / Location: [address] / [facility] in [place], [place] Anesthesia Start: 0850 Anesthesia Stop: 1142 Procedure: CREATION FISTULA RADIOCEPHALIC ARTERIOVENOUS (Left) Diagnosis: Chronic Kidney Disease Stage 5 GFR Less Than 15 Dialysis Dependent (HCC) (Chronic Kidney Disease Stage 5 GFR Less Than 15 Dialysis Dependent (HCC) [N18.6, Z99.2]) Providers: Glen Baker M.D. Responsible Provider: Tao Bello M.D. Anesthesia Type: general ASA Status: 4 Anesthesia Type: general Last vitals Vitals Value Taken Time BP 142/79 02/05/24 1300 Temp 36.9 ??C 02/05/24 1140 Pulse 78 02/05/24 1308 Resp 29 02/05/24 1308 SpO2 92 % 02/05/24 1308 Vitals shown include unfiled device data. Please reference Vitals flowsheet for most recent vital signs. Anesthesia Post Evaluation Cardiovascular status: hemodynamics (HR & BP) acceptable Respiratory status: patent airway with spontaneous effort Temperature: normothermic Oxygen requirements: room air Level of consciousness: awake Pain score: pain adequately controlled and/or at baseline Post Op nausea/vomiting: none Hydration status: euvolemic Notable Events No notable events documented. MANAGEMENT COORDINATOR * Anesthesia Procedure Notes - Roseline Spears APRN, CRNA - 02/05/2024 9:09 AM CSTAssociated Order(s): Airway Airway Date/Time: 02/05/2024 8:58 AM Performed by: [...] Procedure outcome: successful Notable Events: no complications MANAGEMENT COORDINATOR * Anesthesia Preprocedure Evaluation - Tao Bello M.D. - 02/05/2024 7:23 AM CST Preprocedure Anesthesia & H&P Assessment Procedure Summary Date/Time: 02/05/24 0745 Procedure: CREATION FISTULA RADIOCEPHALIC ARTERIOVENOUS (Left) Diagnosis: Chronic Kidney Disease Stage 5 GFR Less Than 15 Dialysis Dependent (HCC) [N18.6, Z99.2] Pre-op diagnosis: Chronic Kidney Disease Stage 5 GFR Less Than 15 Dialysis Dependent (HCC) [N18.6, Z99.2] Location: [place] [address] / [facility] in [place], [place] Providers: Glen Baker M.D. Pertinent components of the patient's history including current problem list, medical history, surgical history, family history, social history, medications and allergies were reviewed. Present illness and pre-op diagnosis were confirmed. The planned surgery / procedure was verified with the patient / legal guardian. 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) (+) Chronic Kidney Disease Stage 5 GFR Less Than 15 Dialysis Dependent (HCC) (+) Failure Renal Acute (Acute Kidney Injury) (HCC) (+) Hypertensive Chronic Kidney Disease With Stage 5 Chronic Kidney Disease Or End Stage Renal Disease (HCC) Genitourinary (+) Glomerulonephritis Immunoglobulin A (IgA Nephropathy) OBJECTIVE PHYSICAL EXAMINATION Airway (HEENT) Mallampati: II TM Distance: >3 FB Neck ROM: Full Mouth Opening: >3 cm Cardiovascular Rhythm: Regular Rate: Normal Cardiovascular Assessment: cardiovascular normal Functional Capacity: >4 METS Pulmonary Pulmonary Assessment: Clear General / Constitutional Constitutional Assessment: Obese General State of Health:: calm Neurological Neurologic Assessment: alert Dental Dental Assessment: dentition in poor repair ASSESSMENT / PLAN ANESTHESIA PLAN ASA: 4 Anesthesia Plan: general Patient seen and allergies reviewed, anesthesia plan and risks discussed directly with patient /legal guardian or through an diplomatic interpreter/translator. Risks/Benefits/Alternatives of Blood transfusion discussed with patient / legal guardian, includingan opportunity to ask questions and/or decline some or all transfusion therapies. The patient / legal guardian consented to the use of all blood products, as deemed medically necessary Approval to Proceed: approved for anesthesia MANAGEMENT COORDINATOR documented in this encounter Plan of Treatment Upcoming Encounters Date Type Department Care Team (Latest Contact Info) Description 03/02/2024 10:00 AM CASE MANAGEMENT COORDINATOR Telemedicine Department of Patient Education in [address] [phone] Sheree Franz M.D. [address] [place] [phone] 03/05/2024 11:30 AM CASE MANAGEMENT COORDINATOR Clinical Communication Virtual Review in [address] [phone] 03/09/2024 6:40 AM CASE MANAGEMENT COORDINATOR Lab Department of Laboratory Medicine and Pathology, [facility] in [address] [phone] Sheree Franz M.D. [address] [place] [phone] 03/09/2024 6:50 AM CASE MANAGEMENT COORDINATOR Lab Department of Laboratory Medicine and Pathology, [facility] in [address] [phone] Sheree Franz M.D. [address] [place] [phone] 03/09/2024 7:20 AM CASE MANAGEMENT COORDINATOR Ancillary Procedure Department of Cardiovascular Medicine in [address] [phone] Sheree Franz M.D. [address] [place] [phone] 03/09/2024 9:00 AM CASE MANAGEMENT COORDINATOR Comprehensive Visit Division of Endocrinology in [place], [place] [address] [place] [phone] Jo Farris M.D. [address] [place] [phone] 03/09/2024 10:30 AM CASE MANAGEMENT COORDINATOR Comprehensive Visit [facility] in [place], [place] [address] [place] [phone] Idalia Hand M.D. [address] [place] [phone] 03/09/2024 12:00 PM CASE MANAGEMENT COORDINATOR Appointment Department of Radiology, [facility], in [place], [place] [address] [place] [phone] Sheree Franz M.D. [address] [place] [phone] 03/09/2024 2:00 PM CASE MANAGEMENT COORDINATOR Virtual Visit Freddy Berlin [facility] in [place], [place] [address] [place] [phone] Sheree rFanz M.D. [address] [place] [phone] 03/09/2024 3:20 PM CASE MANAGEMENT COORDINATOR Appointment Department of Cardiovascular Diseases in [place], [place] [address] [place] [phone] Sheree Franz M.D. [address] [place] [phone] 03/10/2024 9:00 AM CASE MANAGEMENT COORDINATOR Comprehensive Visit [facility] in [place], [place] [address] [place] [phone] Shahid Edge M.D. [address] [place] [phone] 03/10/2024 1:30 PM CASE MANAGEMENT COORDINATOR Appointment Division of Nephrology and Hypertension, [facility], in [place], [place] [address] [place] [phone] Nicholas Tracey, MAGY, C.N.P., M.S.N. [address] [place] [phone] 03/11/2024 8:00 AM CASE MANAGEMENT COORDINATOR Clinical Support [facility] in [place], [place] [address] [place] [address] Sheree Franz M.D. [address] [place] [phone] Alyse Chang M.SInessa, L.I.C.S.W. [address] [place] [phone] 03/11/2024 10:00 AM CASE MANAGEMENT COORDINATOR Office Visit Freddy Slade [facility] in [place], [place] [address] [place] [address] Sheree Franz M.D. [address] [place] [phone] 03/11/2024 11:00 AM CASE MANAGEMENT COORDINATOR Comprehensive Visit Freddy martin [facility] for [facility] in [place], [place] [address] [place] [address] Sheree Franz M.D. [address] [place] [phone] 03/11/2024 1:00 PM CASE MANAGEMENT COORDINATOR Nurse Only Freddy martin [facility] in [place], [place] [address] [place] [phone] Sheree Franz M.D. [address] [place] [phone] 03/11/2024 4:00 PM CASE MANAGEMENT COORDINATOR Office Visit [facility] in [place], [place] [address] [place] [phone] Idalia Hand M.D. [address] [place] [phone] 03/23/2024 1:30 PM CASE MANAGEMENT COORDINATOR Appointment Department of Radiology, [facility], in [place], [place] [address] [place] [phone] Glen Baker M.D. [address] [place] [phone] Discharge Disposition: Home or Self Care 03/23/2024 3:00 PM CASE MANAGEMENT COORDINATOR Nurse Only Division of Nephrology and Hypertension in [place], [place] [address] [place] [phone] Glen Baker M.D. [address] [place] [phone] documented as of this encounter Procedures Procedure Name Priority Date/Time Associated Diagnosis Comments LDA ANE NON-SURGICAL AIRWAY Routine 02/05/2024 8:58 AM CASE MANAGEMENT COORDINATOR documented in this encounter Results * LDA ANE NON-SURGICAL AIRWAY (02/05/2024 8:58 AM CASE MANAGEMENT COORDINATOR) Narrative Roseline Spears APRN, CRNA - 02/05/2024 8:58 AM CASE MANAGEMENT COORDINATOR Roseline Spears APRN, CRNA 02/05/2024 9:10 AM [...] Bello M.D. ANESTHESIA ORDERABLES F inal Result documented in this encounter Visit Diagnoses Not on filedocumented in this encounter Administered Medications Inactive Administered Medications - up to 3 most recent administrations Medication Order MAR Action Action Date Dose Rate Site acetaminophen injection intravenous, Administer over 15 Minutes, As needed, Starting on Liv 02/05/24 at 1054, Anesthesia Intra-op Given 02/05/2024 10:54 AM CASE MANAGEMENT COORDINATOR 1,000 mg ceFAZolin injection 2,000 mg (Ancef) 2,000 mg (rounded from 2,700 mg = [...] indication and drug clearance factors., Indications: Prophylaxis, surgicalIndications:Prophylaxis, surgical Given 02/05/2024 9:17 AM CASE MANAGEMENT COORDINATOR 2 g dexAMETHasone injection (Decadron) intravenous, As needed, Starting on Liv 02/05/24 at 0909, Anesthesia Intra-op Given 02/05/2024 9:09 AM CASE MANAGEMENT COORDINATOR 4 mg fentaNYL injection (Sublimaze) intravenous, As needed, Starting on Liv 02/05/24 at 0855, Anesthesia Intra-op Given 02/05/2024 11:24 AM CASE MANAGEMENT COORDINATOR 25 mcg Given 02/05/2024 11:08 AM CASE MANAGEMENT COORDINATOR 25 mcg Given 02/05/2024 10:57 AM CASE MANAGEMENT COORDINATOR 25 mcg heparin (porcine) 1,000 unit/mL injection intravenous, As needed, Starting on Liv 02/05/24 at 0959, Anesthesia Intra-op Given 02/05/2024 9:59 AM CASE MANAGEMENT COORDINATOR 2,000 Units lidocaine (PF) (cardiac) injection intravenous, As needed, Starting on Liv 02/05/24 at 0855, Anesthesia Intra-op Given 02/05/2024 8:55 AM CASE MANAGEMENT COORDINATOR 100 mg NaCl 0.9% infusion intravenous, Continuous Infusion: Per Instructions PRN, Starting on Liv 02/05/24 at 0853, Anesthesia Intra-op New Bag 02/05/2024 8:53 AM CASE MANAGEMENT COORDINATOR ondansetron (PF) injection (Zofran) intravenous, As needed, Starting on Liv 02/05/24 at 0909, Anesthesia Intra-op Given 02/05/2024 9:09 AM CASE MANAGEMENT COORDINATOR 4 mg phenylephrine 80 mcg/mL in NaCl 0.9% 250 mL infusion intravenous, Continuous Infusion: Per Instructions PRN, Starting on Liv 02/05/24 at 1038, Anesthesia Intra-op New Bag 02/05/2024 10:38 AM CASE MANAGEMENT COORDINATOR 0.3 mcg/kg/min 24.03 mL/hr phenylephrine injection intravenous, As needed, Starting on Liv 02/05/24 at 0856, Anesthesia Intra-op Given 02/05/2024 10:10 AM CASE MANAGEMENT COORDINATOR 200 mcg Given 02/05/2024 9:59 AM CASE MANAGEMENT COORDINATOR 200 mcg Given 02/05/2024 9:52 AM CASE MANAGEMENT COORDINATOR 100 mcg propofoL injection (Diprivan) intravenous, As needed, Starting on Liv 02/05/24 at 0856, Anesthesia Intra-op Given 02/05/2024 9:27 AM CASE MANAGEMENT COORDINATOR 40 mg Given 02/05/2024 9:25 AM CASE MANAGEMENT COORDINATOR 40 mg Given 02/05/2024 8:57 AM CASE MANAGEMENT COORDINATOR 50 mg documented in this encounter Care Teams Coke Crane Operator Relationship Specialty Start Date End Date None Reported, Pcp PCP - General Family Medicine 03/10/23 documented as of this encounter
--- OUTSIDE RECORDS SUMMARY | 2024-02-20 23:57 | XMS_ITS | Encounter Summary ---
Author Organization [facility] Address [address] [place] [address] Care Team Providers Care Rn Transfer Name Role Phone None Reported, Pcp Primary Care Provider Unavail able Reason for Referral * Outpatient (Routine) - Closed Specialty Diagnoses / Procedures Referred By Crow olivo Referred To Contact Radiology Diagnoses Complication Dialysis Catheter Subsequent Chronic Failure Renal End Stage Renal Disease Dialysis Dependent (HCC) Procedures IR Dialysis / High Flow Catheter Exchange Nicholas Tracey APRN, C.N.P., M.S.N. [address] [place] [phone] Phone: tel: fax: [facility] Referral ID Status Reason Start Date Expiration Date Visits Re quested Visits Authorized [id number] Closed 01/21/2024 01/20/2025 1 1 ERS COMPENSATION CLAIMS SUPERVISOR Encounter Details Date Type Department Care Team (Late st Contact Info) Description 01/21/2024 Orders Only Division of Nephrology and Hypertension, [facility], in [place], [place] [address] [place] [phone] Nicholas Tracey APRN, C.N.P., M.S.N. 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 I have a [facility] place to live 11/07/2023 Comments No Sex and Gender Information Value Date Recorded Sex Assigned at Female 03/13/2023 1:38 PM WORKERS COMPENSATION CLAIMS SUPERVISOR Legal Sex Female 10:08 PM WORKERS COMPENSATION CLAIMS SUPERVISOR Gender Identity Female 03/13/2023 1:42 PM WORKERS COMPENSATION CLAIMS SUPERVISOR Sexual Orientation Straight 03/13/2023 1: 42 PM WORKERS COMPENSATION CLAIMS SUPERVISOR documented as of this encounter Plan of Treatment Upcoming Encounters Date Type Department Care Team (Latest Contact Info) Description 03/02/2024 10:00 AM WORKERS COMPENSATION CLAIMS SUPERVISOR Telemedicine Department of Patient Education in [address] [phone] Sheree Franz M.D. [address] [place] [phone] 03/05/2024 11:30 AM WORKERS COMPENSATION CLAIMS SUPERVISOR Clinical Communication Virtual Review in [place], [place] 200 [place] [address] 03/09/2024 6:40 AM WORKERS COMPENSATION CLAIMS SUPERVISOR Lab Department of Laboratory Medicine and Pathology, [place], [place] [address] [place] [phone] Sheree Franz M.D. [address] [place] [phone] 03/09/2024 6:50 AM WORKERS COMPENSATION CLAIMS SUPERVISOR Lab Department of Laboratory Medicine and Pathology, [facility] in [place], [place] [address] [place] [phone] Sheree Franz M.D. [address] [place] [phone] 03/09/2024 7:20 AM WORKERS COMPENSATION CLAIMS SUPERVISOR Ancillary Procedure Department of Cardiovascular Medicine in [place], [place] [address] [place] [phone] Sheree Franz M.D. [address] [place] [phone] 03/09/2024 9:00 AM WORKERS COMPENSATION CLAIMS SUPERVISOR Comprehensive Visit Division of Endocrinology in [place], [place] [address] [place] [phone] Jo Farris M.D. [address] [place] [phone] 03/09/2024 10:30 AM WORKERS COMPENSATION CLAIMS SUPERVISOR Comprehensive Visit [facility]dy [facility] in [place], [place] [address] [place] [address] Idalia Hand M.D. [address] [place] [phone] 03/09/2024 12:00 PM WORKERS COMPENSATION CLAIMS SUPERVISOR Appointment Department of Radiology, [facility], in [place], [place] [address] [place] [phone] Sheree Franz M.D. [address] [place] [phone] 03/09/2024 2:00 PM WORKERS COMPENSATION CLAIMS SUPERVISOR Virtual Visit [facility] in [place], [place] [address] [place] [phone] Sheree Franz M.D. [address] [place] [phone] 03/09/2024 3:20 PM WORKERS COMPENSATION CLAIMS SUPERVISOR Appointment Department of Cardiovascular Diseases in [place], [place] [address] [place] [address] Sheree Franz M.D. [address] [place] [phone] 03/10/2024 9:00 AM WORKERS COMPENSATION CLAIMS SUPERVISOR [facility] in [place], [place] [address] [place] [address] Shahid Edge M.D. [address] [place] [phone] 03/10/2024 1:30 PM WORKERS COMPENSATION CLAIMS SUPERVISOR Appointment Division of Nephrology and Hypertension, [facility], in [place], [place] [address] [place] [address] Nicholas Tracey APRN, C.N.P., M.S.N. [address] [place] [phone] 03/11/2024 8:00 AM WORKERS COMPENSATION CLAIMS SUPERVISOR Clinical Support [facility] [place] Transplantation and Clinical Regeneration in [place], [place] [address] [place] [address] Sheree Franz M.D. [address] [place] [phone] Alyse Chang M.SInessa, L.I.C.S.W. [address] [place] [phone] 03/11/2024 10:00 AM WORKERS COMPENSATION CLAIMS SUPERVISOR [facility] in [place], [place] [address] [place] [address] Sheree Franz M.D. [address] [place] [phone] 03/11/2024 11:00 AM WORKERS COMPENSATION CLAIMS SUPERVISOR Comprehensive [facility] in [place], [place] [address] [place] [address] Sheree Franz M.D. [address] [place] [phone] 03/11/2024 1:00 PM WORKERS COMPENSATION CLAIMS SUPERVISOR Nurse Only Freddy martin [facility] Transplantation and Clinical Regeneration in [place], [place] [address] [place] [phone] Sheree Franz M.D. [address] [place] [phone] 03/11/2024 4:00 PM WORKERS COMPENSATION CLAIMS SUPERVISOR Office Visit Freddy martin [facility] Transplantation and Clinical Regeneration in [place], [place] [address] [place] [phone] Idalia Hand M.D. [address] [place] [phone] 03/23/2024 1:30 PM WORKERS COMPENSATION CLAIMS SUPERVISOR Appointment Department of Radiology, [facility], in [place], [place] [address] [place] [phone] Glen Baker M.D. [address] [place] [phone] Discharge Disposition: Home or Self Care 03/23/2024 3:00 PM WORKERS COMPENSATION CLAIMS SUPERVISOR Nurse Only Division of Nephrology and Hypertension in [place], [place] [address] [place] [phone] Glen Baker M.D. [address] [place] [phone] documented as of this encounter Results * IR Dialysis / High Flow Catheter Exchange (01/21/2024 2:53 PM WORKERS COMPENSATION CLAIMS SUPERVISOR) Anatomical Region Laterality Modality Body, Vascular Interventiona l RST LOS, Vascular Interventional ARZ LOS, Vascular Interventional FLA LOS N/A X-Ray Angiography Impressions 01/21/2024 3:22 PM WORKERS COMPENSATION CLAIMS SUPERVISOR Uncomplicated exchange of a partially occluded right [...] catheter position. NR Narrative 01/21/2024 3:22 PM WORKERS COMPENSATION CLAIMS SUPERVISOR EXAM: IR DIALYSIS / HIGH FLOW CATHETER EXCHANGE CLINICAL HISTORY: Occluded right internal jugular tunnel dialysis catheter. TECHNIQUE: The right internal jugular [employer] tunneled dialysis catheter was prepped and draped in sterile fashion. Physical Therapy Instructor film shows expected position. Preliminary aspiration and [...] was prepped and draped in sterile fashion. Physical Therapy Instructor film showsexpected position. Preliminary aspiration and flushing [...] positional and respiratory changes in catheterposition. NR Nicholas Tracey APRN C.N.P., M.S.N. IMG IR PROCEDURE S Final Result documented in this encounter Visit Diagnoses Diagnosis Complication Dialysis Catheter Subsequent- Primary Chronic Failure Renal End Stage Renal Disease Dialysis Dependent (HCC) Complication Dialysis Catheter Subsequent Chronic Failure Renal End Stage Renal Disease Dialysis Dependent (HCC) documented in this encounter Care Teams Rn Transfer Relationship Specialty Start Date End Date None Reported, Pcp PCP - General Family Medicine 03/10/23 documented as of this encounter
--- OUTSIDE RECORDS SUMMARY | 2024-02-20 23:57 | XMS_ITS | Encounter Summary ---
Author Organization [facility] Address [address] [place] [address] Care Team Providers Care Tromper Name Role Phone None Reported, Pcp Primary Care Provider Unavail able Reason for Referral * MRI/CAT/PET Scan (Routine) - Closed Specialty Diagnoses / Procedures Referred By Contac t Referred To Contact Radiology Diagnoses Nodule Pulmonary Procedures CT Chest without IV Contrast Jo Root M.D., Ph.D. 200 [place] [address] Phone: tel: fax: [facility] Referral ID Status Reason Start Date Expiration Date Visits Re quested Visits Authorized [id number] Closed 01/21/2024 01/20/2025 1 1 STRAIGHTENER Reason for Visit * MRI/CAT/PET Scan (Routine) - Closed Specialty Diagnoses / Procedures Referred By Contac t Referred To Contact Radiology Diagnoses Nodule Pulmonary Procedures CT Chest without IV Contrast Jo Root M.D., Ph.D. [address] [place] [phone] Phone: tel: fax: [facility] Referral ID Status Reason Start Date Expiration Date Visits Re quested Visits Authorized [id number] Closed 01/21/2024 01/20/2025 1 1 Encounter Details Date Type Department Care Team (Latest Contact Info) Description 02/01/2024 10:38 AM WEFT STRAIGHTENER - 02/01/2024 11:59 PM WEFT STRAIGHTENER Hospital Encounter Department of Radiology, [facility], in [place], [place] [address] [place] [address] Jo Root M.D., Ph.D. [address] [place] [address] Nodule Pulmonary Discharge Disposition: Home or Self Care Social History Tobacco Use Types Packs/Day Years Used Date Smoking Tobacco: Never Smokeless Tobacco: Never Alcohol Use Standard Drinks/Week Comments Never 0 (1 standard drink = 0.6 oz pur e alcohol) [facility] Utilities Answer Date Recorded In the past 12 months has e [employer], gas, oil, or water [employer] threatened to shut off services in your [...] your living situation today? I have a [facility] place to live 11/07/2023 Comments No Sex and Gender Information Value Date Recorded Sex Assigned at Female 03/13/2023 1:38 PM WEFT STRAIGHTENER Legal Sex Female 10:08 PM WEFT STRAIGHTENER Gender Identity Female 03/13/2023 1:42 PM WEFT STRAIGHTENER Sexual Orientation Straight 03/13/2023 1: 42 PM WEFT STRAIGHTENER documented as of this encounter Medications at Time of Discharge [...] (Latest Contact Info) Description 03/02/2024 10:00 AM WEFT STRAIGHTENER Telemedicine Department of Patient Education in [place], [place] [address] [place] [phone] Sheree Franz M.D. [address] [place] [phone] 03/05/2024 11:30 AM WEFT STRAIGHTENER Clinical Communication Virtual Review in [address] [phone] 03/09/2024 6:40 AM WEFT STRAIGHTENER Lab Department of Laboratory Medicine and Pathology, [place], [place] [address] [place] [phone] Sheree Franz M.D. [address] [place] [phone] 03/09/2024 6:50 AM WEFT STRAIGHTENER Lab Department of Laboratory Medicine and Pathology, [facility] in [place], [place] [address] [place] [phone] Sheree Franz M.D. [address] [place] [phone] 03/09/2024 7:20 AM WEFT STRAIGHTENER Ancillary Procedure Department of Cardiovascular Medicine in [address] [phone] Sheree Franz M.D. [address] [place] [phone] 03/09/2024 9:00 AM WEFT STRAIGHTENER Comprehensive Visit Division of Endocrinology in [place], [place] [address] [place] [address] Jo Farris M.D. [address] [place] [phone] 03/09/2024 10:30 AM WEFT STRAIGHTENER Comprehensive Visit Freddy martin [facility] for Transplantation and Clinical Regeneration in [place], [place] [address] [place] [address] Idalia Hand M.D. [address] [place] [phone] 03/09/2024 12:00 PM WEFT STRAIGHTENER Appointment Department of Radiology, [facility], in [place], [place] [address] [place] [address] Sheree Franz M.D. [address] [place] [phone] 03/09/2024 2:00 PM WEFT STRAIGHTENER [facility] in [place], [place] [address] [place] [address] Sheree Franz M.D. [address] [place] [phone] 03/09/2024 3:20 PM WEFT STRAIGHTENER Appointment Department of Cardiovascular Diseases in [place], [place] [address] [place] [address] Sheree Franz M.D. [address] [place] [phone] 03/10/2024 9:00 AM WEFT STRAIGHTENER Comprehensive Visit Freddy Berlin [facility] Transplantation and Clinical Regeneration in [place], [place] [address] [place] [address] Shahid Edge M.D. [address] [place] [address] 03/10/2024 1:30 PM WEFT STRAIGHTENER Appointment Division of Nephrology and Hypertension, [facility], in [place], [place] [address] [place] [address] Nicholas Tracey, MAGY, C.N.P., M.S.N. [address] [place] [phone] 03/11/2024 8:00 AM WEFT STRAIGHTENER Clinical Support [facility] in [place], [place] [address] [place] [address] Sheree Franz M.D. [address] [place] [phone] Alyse Chang M.S.Kayla., L.I.C.S.W. [address] [place] [phone] 03/11/2024 10:00 AM WEFT STRAIGHTENER [facility] in [place], [place] [address] [place] [address] Sheree Franz M.D. [address] [place] [phone] 03/11/2024 11:00 AM WEFT STRAIGHTENER Comprehensive [facility] in [place], [place] [address] [place] [address] Sheree Franz M.D. [address] [place] [phone] 03/11/2024 1:00 PM WEFT STRAIGHTENER Nurse Only [facility] in [place], [place] [address] [place] [address] Sheree Franz M.D. [address] [place] [phone] 03/11/2024 4:00 PM WEFT STRAIGHTENER Office [facility] Clinical [facility]eneration in [place], [place] [address] [place] [address] Idalia Hand M.D. [address] [place] [phone] 03/23/2024 1:30 PM WEFT STRAIGHTENER Appointment Department of Radiology, [facility], in [place], [place] [address] [place] [address] Glen Baker M.D. [address] [place] [phone] Discharge Disposition: Home or Self Care 03/23/2024 3:00 PM WEFT STRAIGHTENER Nurse Only Division of Nephrology and Hypertension in [place], [place] [address] [place] [address] Glen Baker M.D. [address] [place] [phone] documented as of this encounter Procedures Procedure Name Priority Date/Time Associated Diagnosis Comments CT CHEST WITHOUT IV CONTRAST RAD - Routine (most inpatients and all outpatients) 02/01/2024 11:07 AM WEFT STRAIGHTENER Nodule Pulmonary documented in this encounter Results * CT Chest without IV Contrast (02/01/2024 11:07 AM WEFT STRAIGHTENER) Anatomical Region Laterality Modality Chest, Thoracic RST LOS, Tho racic ARZ LOS, Thoracic FLA LOS N/A Computed Tomography, Compute d Tomography Impressions 02/01/2024 4:08 PM WEFT STRAIGHTENER Nearly resolved prior right upper lobe semisolid nodule, which was likely infectious/inflammatory. No concerning pulmonary nodules. Narrative 02/01/2024 4:08 PM WEFT STRAIGHTENER EXAM: CT CHEST WITHOUT IV CONTRAST COMPARISON: [...] Pulmonary documented in this encounter Care Teams Tromper Relationship Specialty Start Date End Date None Reported, Pcp PCP - General Family Medicine 03/10/23 documented as of this encounter
--- OUTSIDE RECORDS SUMMARY | 2024-02-20 23:58 | XMS_ITS | Encounter Summary ---
Author Organization [facility] Address [address] [place] [address] Care Team Providers Care Quantitative Analyst Marketing Name Role Phone None Reported, Pcp Primary Care Provider Unavail able Reason for Visit * Outpatient (Routine) - Closed Specialty Diagnoses / Procedures Referred By Crow olivo Referred To Contact Pulmonary Medicine Diagnoses Nodule Pulmonary Procedures Pulmonary Medicine - Pulmonary nodule(s) eConsult Jo Root M.D., Ph.D. 200 [place] [address] Phone: tel: fax: [facility] Referral ID Status Reason Start Date Expiration Date Visits Re quested Visits Authorized [id number] Closed 12/09/2023 12/08/2024 1 1 Encounter Details Date Type Department Care Team (Latest Contact Info) Description 01/19/2024 8:00 AM TREATING AND PUMPING SUPERVISOR Internal E-Consult Division of Pulmonary Medicine in [place], [place] 200 [place] [phone] Aleks Velasquez Jr., M.D. [address] [place] [address] Nodule Pulmonary Social History Tobacco Use Types Packs/Day Years Used Date Smoking Tobacco: Never Smokeless Tobacco: Never Alcohol Use Standard Drinks/Week Comments Never 0 (1 standard drink = 0.6 oz pur e alcohol) [facility] Utilities Answer Date Recorded In the past 12 months has th e electric, gas, oil, or water [employer] threatened to shut off services in your [...] your living situation today? [facility] 11/07/2023 Comments No Sex and Gender Information Value Date Recorded Sex Assigned at Female 03/13/2023 1:38 PM TREATING AND PUMPING SUPERVISOR Legal Sex Female 10:08 PM TREATING AND PUMPING SUPERVISOR Gender Identity Female 03/13/2023 1:42 PM TREATING AND PUMPING SUPERVISOR Sexual Orientation Straight 03/13/2023 1: 42 PM TREATING AND PUMPING SUPERVISOR documented as of this encounter Consult Notes * Aleks Velasquez Jr., M.D. - 01/20/2024 8:00 AM CST SUBJECTIVE CHIEF COMPLAINT / REASON FOR VISIT This patient was not personally interviewed or examined. The history and examination findings are based on the clinical documentation provided and/or discussion with a physician or provider who had personally interviewed and examined the patient. ECONSULT requested for Lung nodule, please provide recommendations on management and monitoring. Thank you. Referred by: Jo Root M.D., Ph.D. [address] [place] [phone] HISTORY OF PRESENT ILLNESS Ms. Ramirez is a 48 y.o. female who by report has never smoked. She was recently seen by the referring provider on December 09, 2023 prior to having vascular access for dialysis placed. The patient had an outside CT chest dated November 07, 2023, and with having the CT scan reviewed here shows a 7x 12 mm right upper lobe solid nodule and 11 x 14 right lower lobe nodule. She was hospitalized from November 07, 2023 to November 12, 2023 for bacteremia. It is unknown if she has any respiratory or infectious symptoms currently. SOCIAL HISTORY The patient reports that she has never smoked. She has never used smokeless tobacco. She reports that she does not drink alcohol and does not use drugs. FAMILY HISTORY The patient's family history is not on file. PAST MEDICAL/SURGICAL HISTORY The patient has a past medical history of Chronic Kidney Disease NOS, Dialysis Dependent (HCC), Hypertension NOS, and Septicemia (HCC). She has no past medical history of Apnea Sleep Obstructive, Asthma NOS, Chronic Obstructive Pulmonary Disease (HCC), Diabetes Mellitus NOS, Heart Failure NOS, Liver Disease, Seizure (HCC), or Stroke (HCC). The patient has no past surgical history on file. CURRENT MEDICATION LIST Current Outpatient Medications: B complex-vitamin C-FA (Nephro-Wally) 0.8 mg tablet, Take 1 tablet by mouth daily., Disp: , Rfl: calcium acetate,phosphat bind, (PHOSLO) 667 mg (169 mg calcium) capsule, Take 1 capsule (667 mg total) by mouth 3 (three) times a day with meals., Disp: 270 capsule, Rfl: 3 carvediloL (COREG) 12.5 mg tablet, Take 1 tablet (12.5 mg total) by mouth 2 (two) times a day with meals., Disp: 180 tablet, Rfl: 3 ceFAZolin (Ancef) 200 mg/mL injection, Infuse 10 mL (2 g total) into a venous catheter 3 (three) times a week Indications: Blood stream infection. Tekcsm-Qfbftxprf-Qjqzwl after dialysis. Dialysis center will provide medication., Disp: , Rfl: sodium bicarbonate 650 mg tablet, Take 2 tablets (1,300 mg total) by mouth 2 (two) times a day., Disp: 360 tablet, Rfl: 3 warfarin (Jantoven) 2 mg tablet, Take 1 tablet (2 mg total) by mouth daily. 2 mg every evening daily, Disp: , Rfl: REVIEW OF SYSTEMS Reviewed encounter review of systems and pertinent responses are noted in the history. IMPRESSION/REPORT/PLAN #1 Multiple pulmonary nodules I viewed the images of the CT chest and these 2 nodules are indeterminate. I would recommend repeating a high-resolution noncontrast CT chest now with comparison to her previous CT. TING AND PUMPING SUPERVISOR documented in this encounter Plan of Treatment Upcoming Encounters Date Type Department Care Team (Latest Contact Info) Description 03/02/2024 10:00 AM TREATING AND PUMPING SUPERVISOR Telemedicine Department of Patient Education in [address] [phone] Sheree Franz M.D. [address] [place] [phone] 03/05/2024 11:30 AM TREATING AND PUMPING SUPERVISOR Clinical Communication Virtual Review in [place], [place] 200 [place] [address] 03/09/2024 6:40 AM TREATING AND PUMPING SUPERVISOR Lab Department of Laboratory Medicine and Pathology, [facility], in [place], [place] [address] [place] [phone] Sheree Franz M.D. [address] [place] [phone] 03/09/2024 6:50 AM TREATING AND PUMPING SUPERVISOR Lab Department of Laboratory Medicine and Pathology, [facility], in [place], [place] [address] [place] [address] Sheree Franz M.D. [address] [place] [phone] 03/09/2024 7:20 AM TREATING AND PUMPING SUPERVISOR Ancillary Procedure Department of Cardiovascular Medicine in [place], [place] [address] [place] [address] Sheree Franz M.D. [address] [place] [phone] 03/09/2024 9:00 AM TREATING AND PUMPING SUPERVISOR Comprehensive Visit Division of Endocrinology in [place], [place] [address] [place] [address] Jo Farris M.D. [address] [place] [phone] 03/09/2024 10:30 AM TREATING AND PUMPING SUPERVISOR [facility] in [place], [place] [address] [place] [address] Idalia Hand M.D. [address] [place] [phone] 03/09/2024 12:00 PM TREATING AND PUMPING SUPERVISOR Appointment Department of Radiology, [facility], in [place], [place] [address] [place] [address] Sheree Franz M.D. [address] [place] [address] 03/09/2024 2:00 PM TREATING AND PUMPING SUPERVISOR Virtual [facility] in [place], [place] [address] [place] [address] Sheree Franz M.D. [address] [place] [phone] 03/09/2024 3:20 PM TREATING AND PUMPING SUPERVISOR Appointment Department of Cardiovascular Diseases in [place], [place] [address] [place] [address] Sheree Franz M.D. [address] [place] [phone] 03/10/2024 9:00 AM TREATING AND PUMPING SUPERVISOR Comprehensive Visit [facility] Transplantation and Clinical Regeneration in [place], [place] [address] [place] [address] Shahid Edge M.D. [address] [place] [phone] 03/10/2024 1:30 PM TREATING AND PUMPING SUPERVISOR Appointment Division of Nephrology and Hypertension, [facility], in [place], [place] [address] [place] [address] Nicholas Tracey, PHYSICAL TRAINER, C.N.P., M.S.N. [address] [place] [phone] 03/11/2024 8:00 AM TREATING AND PUMPING SUPERVISOR Clinical Support [facility] for Transplantation and Clinical Regeneration in [place], [place] [address] [place] [address] Sheree Franz M.D. [address] [place] [phone] Alyse Chang, IbisS.W., L.I.C.SInessa [address] [place] [address] 03/11/2024 10:00 AM TREATING AND PUMPING SUPERVISOR Office Visit Freddy martin [facility] Transplantation and Clinical Regeneration in [place], [place] [address] [place] [address] Sheree Franz M.D. [address] [place] [phone] 03/11/2024 11:00 AM TREATING AND PUMPING SUPERVISOR Comprehensive [facility] in [place], [place] [address] [place] [address] Sheree Franz M.D. [address] [place] [phone] 03/11/2024 1:00 PM TREATING AND PUMPING SUPERVISOR Nurse Only [facility] in [place], [place] [address] [place] [address] Sheree Franz M.D. [address] [place] [phone] 03/11/2024 4:00 PM TREATING AND PUMPING SUPERVISOR Office Visit [facility] in [place], [place] [address] [place] [address] Idalia Hand M.D. [address] [place] [phone] 03/23/2024 1:30 PM TREATING AND PUMPING SUPERVISOR Appointment Department of Radiology, [facility], in [place], [place] [address] [place] [address] Glen Baker M.D. [address] [place] [phone] Discharge Disposition: Home or Self Care 03/23/2024 3:00 PM TREATING AND PUMPING SUPERVISOR Nurse Only Division of Nephrology and Hypertension in [place], [place] [address] [place] [address] Glen Baker M.D. [address] [place] [address] documented as of this encounter Results * Interpretation of Outside CT Chest (01/19/2024 8:57 AM TREATING AND PUMPING SUPERVISOR) Anatomical Region Laterality Modality Chest, Thoracic RST LOS, Tho racic ARZ LOS, Thoracic FLA LOS, Other, Body N/A Computed Tomography Impressions 01/20/2024 9:48 AM TREATING AND PUMPING SUPERVISOR A couple of small pulmonary nodules are present. These may be infectious/inflammatory, but are technically indeterminate. Consider a short interval (3 month) follow-up chest CT in further evaluation. Narrative 01/20/2024 9:48 AM TREATING AND PUMPING SUPERVISOR EXAM: INTERPRETATION OF OUTSIDE CT CHEST without [...] this encounter Visit Diagnoses Diagnosis Nodule Pulmonary Nodule Pulmonary documented in this encounter Care Teams Quantitative Analyst Marketing Relationship Specialty Start Date End Date None Reported, Pcp PCP - General Family Medicine 03/10/23 documented as of this encounter
--- OUTSIDE RECORDS SUMMARY | 2024-02-20 23:58 | XMS_ITS | Encounter Summary ---
Author Organization [facility] Address [address] [place] [address] Care Team Providers Care Senior Production Manager Name Role Phone None Reported, Pcp Primary Care Provider Unavail able Encounter Details Date Type Department Care Team (Late st Contact Info) Description 12/24/2023 Orders Only Division of Nephrology and Hypertension, [facility], in [place], [place] [address] [place] [phone] Nicholas Tracey P, MAGY, C.N.P., M.S.N. [address] [place] [phone] Social History Tobacco Use Types Packs/Day Years Used Date Smoking Tobacco: Never Smokeless Tobacco: Never Alcohol Use Standard Drinks/Week Comments Never 0 (1 standard drink = 0.6 oz pur e alcohol) [facility] Utilities Answer Date Recorded In the past 12 months has [employer], gas, oil, or water [employer] threatened to shut off services in your [...] your living situation today? [facility] 11/07/2023 Comments No Sex and Gender Information Value Date Recorded Sex Assigned at Female 03/13/2023 1:38 PM ATTENDING ANESTHESIOLOGIST Legal Sex Female 10:08 PM ATTENDING ANESTHESIOLOGIST Gender Identity Female 03/13/2023 1:42 PM ATTENDING ANESTHESIOLOGIST Sexual Orientation Straight 03/13/2023 1: 42 PM ATTENDING ANESTHESIOLOGIST documented as of this encounter Plan of Treatment Upcoming Encounters Date Type Department Care Team (Latest Contact Info) Description 03/02/2024 10:00 AM ATTENDING ANESTHESIOLOGIST Telemedicine Department of Patient Education in [place], [place] [address] [place] [phone] Sheree Franz M.D. [address] [place] [phone] 03/05/2024 11:30 AM ATTENDING ANESTHESIOLOGIST Clinical Communication Virtual Review in [place], [place] 200 [place] [address] 03/09/2024 6:40 AM ATTENDING ANESTHESIOLOGIST Lab Department of Laboratory Medicine and Pathology, [facility] in [place], [place] [address] [place] [phone] Sheree Franz M.D. [address] [place] [phone] 03/09/2024 6:50 AM ATTENDING ANESTHESIOLOGIST Lab Department of Laboratory Medicine and Pathology, [facility] in [place], [place] [address] [place] [phone] Sheree Franz M.D. [address] [place] [phone] 03/09/2024 7:20 AM ATTENDING ANESTHESIOLOGIST Ancillary Procedure Department of Cardiovascular Medicine in [place], [place] [address] [place] [phone] Sheree Franz M.D. [address] [place] [phone] 03/09/2024 9:00 AM ATTENDING ANESTHESIOLOGIST Comprehensive Visit Division of Endocrinology in [place], [place] [address] [place] [phone] Jo Farris M.D. [address] [place] [phone] 03/09/2024 10:30 AM ATTENDING ANESTHESIOLOGIST Comprehensive [facility] in [place], [place] [address] [place] [phone] Idalia Hand M.D. [address] [place] [address] 03/09/2024 12:00 PM ATTENDING ANESTHESIOLOGIST Appointment Department of Radiology, [facility], in [place], [place] [address] [place] [address] Sheree Franz M.D. [address] [place] [address] 03/09/2024 2:00 PM ATTENDING ANESTHESIOLOGIST Virtual Visit Freddy Diaz [facility] in [place], [place] [address] [place] [address] Sheree Franz M.D. [address] [place] [phone] 03/09/2024 3:20 PM ATTENDING ANESTHESIOLOGIST Appointment Department of Cardiovascular Diseases in [place], [place] [address] [place] [address] Sheree Franz M.D. [address] [place] [phone] 03/10/2024 9:00 AM ATTENDING ANESTHESIOLOGIST Comprehensive Visit Freddy Diaz [facility] in [place], [place] [address] [place] [address] Shahid Edge M.D. [address] [place] [phone] 03/10/2024 1:30 PM ATTENDING ANESTHESIOLOGIST Appointment Division of Nephrology and Hypertension, [facility], in [place], [place] [address] [place] [address] Nicholas Tracey, VP ANCILLARY, C.N.P., M.S.N. [address] [place] [address] 03/11/2024 8:00 AM ATTENDING ANESTHESIOLOGIST Clinical Support Freddy martin [facility] for Transplantation and Clinical Regeneration in [place], [place] [address] [place] [address] Sheree Franz M.D. [address] [place] [phone] Alyse Chang M.S.W., L.IJanieC.S.W. [address] [place] [address] 03/11/2024 10:00 AM ATTENDING ANESTHESIOLOGIST Office Visit Freddy martin [facility] Transplantation and Clinical Regeneration in [place], [place] [address] [place] [address] Sheree Franz M.D. [address] [place] [phone] 03/11/2024 11:00 AM ATTENDING ANESTHESIOLOGIST Comprehensive Visit Freddy martin [facility] Transplantation and Clinical Regeneration in [place], [place] [address] [place] [address] Sheree Franz M.D. [address] [place] [phone] 03/11/2024 1:00 PM ATTENDING ANESTHESIOLOGIST Nurse Only Freddy Slade [facility] Transplantation and Clinical Regeneration in [place], [place] [address] [place] [address] Sheree Franz M.D. [address] [place] [phone] 03/11/2024 4:00 PM ATTENDING ANESTHESIOLOGIST Office Visit Freddy Slade [facility] Transplantation and Clinical Regeneration in [place], [place] [address] [place] [address] Idalia Hand M.D. [address] [place] [address] 03/23/2024 1:30 PM ATTENDING ANESTHESIOLOGIST Appointment Department of Radiology, [facility], in [place], [place] [address] [place] [address] Glen Baker M.D. [address] [place] [phone] Discharge Disposition: Home or Self Care 03/23/2024 3:00 PM ATTENDING ANESTHESIOLOGIST Nurse Only Division of Nephrology and Hypertension in [place], [place] [address] [place] [address] Glen Baker M.D. [address] [place] [phone] documented as of this encounter Visit Diagnoses Not on filedocumented in this encounter Care Teams Senior Production Manager Relationship Specialty Start Date End Date None Reported, Pcp PCP - General Family Medicine 03/10/23 documented as of this encounter
--- OUTSIDE RECORDS SUMMARY | 2024-02-20 23:58 | XMS_ITS | Encounter Summary ---
Author Organization [facility] Address [address] [place] [address] Care Team Providers Care Staff Physician Name Role Phone None Reported, Pcp Primary Care Provider Unavail able Encounter Details Date Type Department Care Team (Latest Contact Info) Description 11/07/2023 Intake [facility] Social History Tobacco Use Types Packs/Day Years Used Date Smoking Tobacco: Never Smokeless Tobacco: Never Alcohol Use Standard Drinks/Week Comments Never 0 (1 standard drink = 0.6 oz pur e alcohol) [facility] Utilities Answer Date Recorded In the past 12 months has [employer], gas, oil, or water [email or web address] threatened to shut off services in your [...] your living situation today? I have a [facility] place to live 11/07/2023 Comments No Sex and Gender Information Value Date Recorded Sex Assigned at Female 03/13/2023 1:38 PM PIZZA HUT TEAM MEMBER Legal Sex Female 10:08 PM PIZZA HUT TEAM MEMBER Gender Identity Female 03/13/2023 1:42 PM PIZZA HUT TEAM MEMBER Sexual Orientation Straight 03/13/2023 1: 42 PM PIZZA HUT TEAM MEMBER documented as of this encounter Last Filed [...] (Latest Contact Info) Description 03/02/2024 10:00 AM PIZZA HUT TEAM MEMBER Telemedicine Department of Patient Education in [place], [place] [address] [place] [phone] Sheree Franz M.D. [address] [place] [phone] 03/05/2024 11:30 AM PIZZA HUT TEAM MEMBER Clinical Communication Virtual Review in [place], [place] 200 [place] [address] 03/09/2024 6:40 AM PIZZA HUT TEAM MEMBER Lab Department of Laboratory Medicine and Pathology, [facility] in [place], [place] [address] [place] [phone] Sheree Franz M.D. [address] [place] [phone] 03/09/2024 6:50 AM PIZZA HUT TEAM MEMBER Lab Department of Laboratory Medicine and Pathology, [facility] in [place], [place] [address] [place] [phone] Sheree Franz M.D. [address] [place] [phone] 03/09/2024 7:20 AM PIZZA HUT TEAM MEMBER Ancillary Procedure Department of Cardiovascular Medicine in [address] [address] Sheree Franz M.D. [address] [place] [phone] 03/09/2024 9:00 AM PIZZA HUT TEAM MEMBER Comprehensive Visit Division of Endocrinology in [place], [place] [address] [place] [phone] Jo Farris M.D. [address] [place] [phone] 03/09/2024 10:30 AM PIZZA HUT TEAM MEMBER [facility] in [place], [place] [address] [place] [phone] Idalia Hand M.D. [address] [place] [address] 03/09/2024 12:00 PM PIZZA HUT TEAM MEMBER Appointment Department of Radiology, [facility], in [place], [place] [address] [place] [address] Sheree Franz M.D. [address] [place] [address] 03/09/2024 2:00 PM PIZZA HUT TEAM MEMBER Virtual [facility] in [place], [place] [address] [place] [address] Sheree Franz M.D. [address] [place] [address] 03/09/2024 3:20 PM PIZZA HUT TEAM MEMBER Appointment Department of Cardiovascular Diseases in [place], [place] [address] [place] [address] Sheree Franz M.D. [address] [place] [phone] 03/10/2024 9:00 AM PIZZA HUT TEAM MEMBER Comprehensive [facility] in [place], [place] [address] [place] [address] Shahid Edge M.D. [address] [place] [phone] 03/10/2024 1:30 PM PIZZA HUT TEAM MEMBER Appointment Division of Nephrology and Hypertension, [facility], in [place], [place] [address] [place] [phone] Nicholas Tracey, FRONT DESK REPRESENTATIVE, C.N.P., M.S.N. [address] [place] [phone] 03/11/2024 8:00 AM PIZZA HUT TEAM MEMBER Clinical Support Freddy martin [facility] for Transplantation and Clinical Regeneration in [place], [place] [address] [place] [address] Sheree Franz M.D. [address] [place] [phone] Alyse Chang M.S.W., L.ILavonne.S.W. [address] [place] [address] 03/11/2024 10:00 AM PIZZA HUT TEAM MEMBER Office Visit Freddy martin [facility] Transplantation and Clinical Regeneration in [place], [place] [address] [place] [address] Sheree Franz M.D. [address] [place] [phone] 03/11/2024 11:00 AM PIZZA HUT TEAM MEMBER Comprehensive [facility] in [place], [place] [address] [place] [address] Sheree Franz M.D. [address] [place] [phone] 03/11/2024 1:00 PM PIZZA HUT TEAM MEMBER Nurse Only Freddy martin [facility] for Transplantation and Clinical Regeneration in [place], [place] [address] [place] [address] Sheree Franz M.D. [address] [place] [phone] 03/11/2024 4:00 PM PIZZA HUT TEAM MEMBER Office Visit Freddy martin [facility] for Transplantation and Clinical Regeneration in [place], [place] [address] [place] [address] Idalia Hand M.D. [address] [place] [address] 03/23/2024 1:30 PM PIZZA HUT TEAM MEMBER Appointment Department of Radiology, [facility], in [place], [place] [address] [place] [address] Glen Baker M.D. [address] [place] [address] Discharge Disposition: Home or Self Care 03/23/2024 3:00 PM PIZZA HUT TEAM MEMBER Nurse Only Division of Nephrology and Hypertension in [place], [place] [address] [place] [address] Glen Baker M.D. [address] [place] [address] documented as of this encounter Visit Diagnoses Not on filedocumented in this encounter Care Teams Staff Physician Relationship Specialty Start Date End Date None Reported, Pcp PCP - General Family Medicine 03/10/23 documented as of this encounter
--- OUTSIDE RECORDS SUMMARY | 2024-02-20 23:58 | XMS_ITS | Encounter Summary ---
Author Organization [facility] Address [address] [place] [address] Care Team Providers Care Supervisor Model Making Name Role Phone None Reported, Pcp Primary Care Provider Unavail able Encounter Details Date Type Department Care Team (Latest Contact Info) Description 12/18/2023 Clinical Communication Freddy Diaz [place] [facility] Regeneration in [place], [place] [address] [place] [address] Nataliia Jackson, R.N. Social History Tobacco Use Types Packs/Day Years Used Date Smoking Tobacco: Never Smokeless Tobacco: Never Alcohol Use Standard Drinks/Week Comments Never 0 (1 standard drink = 0.6 oz pur e alcohol) [facility] Utilities Answer Date Recorded In the past 12 months has e [employer], gas, oil, or water [employer] threatened to shut off services in your [...] your living situation today? I have a [facility] place to live 11/07/2023 Comments No Sex and Gender Information Value Date Recorded Sex Assigned at Female 03/13/2023 1:38 PM STUDENT DEAN Legal Sex Female 10:08 PM STUDENT DEAN Gender Identity Female 03/13/2023 1:42 PM STUDENT DEAN Sexual Orientation Straight 03/13/2023 1: 42 PM STUDENT DEAN documented as of this encounter Plan of Treatment Upcoming Encounters Date Type Department Care Team (Latest Contact Info) Description 03/02/2024 10:00 AM STUDENT DEAN Telemedicine Department of Patient Education in [place], [place] [address] [place] [address] Sheree Franz M.D. [address] [place] [address] 03/05/2024 11:30 AM STUDENT DEAN Clinical Communication Virtual Review in [place], [place] [address] [place] [address] 03/09/2024 6:40 AM STUDENT DEAN Lab Department of Laboratory Medicine and Pathology, [facility] in [place], [place] [address] [place] [phone] Sheree Franz M.D. [address] [place] [phone] 03/09/2024 6:50 AM STUDENT DEAN Lab Department of Laboratory Medicine and Pathology, [facility], in [place], [place] [address] [place] [phone] Sheree Franz M.D. [address] [place] [phone] 03/09/2024 7:20 AM STUDENT DEAN Ancillary Procedure Department of Cardiovascular Medicine in [place], [place] [address] [place] [phone] Sheree Franz M.D. [address] [place] [phone] 03/09/2024 9:00 AM STUDENT DEAN Comprehensive Visit Division of Endocrinology in [place], [place] [address] [place] [phone] Jo Farris M.D. [address] [place] [phone] 03/09/2024 10:30 AM STUDENT DEAN [facility] in [place], [place] [address] [place] [phone] Idalia Hand M.D. [address] [place] [phone] 03/09/2024 12:00 PM STUDENT DEAN Appointment Department of Radiology, [facility], in [place], [place] [address] [place] [address] Sheree Franz M.D. [address] [place] [phone] 03/09/2024 2:00 PM STUDENT DEAN Virtual Visit [facility] Transplantation and Clinical Regeneration in [place], [place] [address] [place] [address] Sheree Franz M.D. [address] [place] [phone] 03/09/2024 3:20 PM STUDENT DEAN Appointment Department of Cardiovascular Diseases in [place], [place] [address] [place] [address] Sheree Franz M.D. [address] [place] [phone] 03/10/2024 9:00 AM STUDENT DEAN Comprehensive Visit [facility] Transplantation and Clinical Regeneration in [place], [place] [address] [place] [address] Shahid Edge M.D. [address] [place] [phone] 03/10/2024 1:30 PM STUDENT DEAN Appointment Division of Nephrology and Hypertension, [facility], in [place], [place] [address] [place] [phone] Nicholas Tracey, MEDICAL CASH POSTER, C.N.P., M.S.N. [address] [place] [phone] 03/11/2024 8:00 AM STUDENT DEAN Clinical Support [facility] for Transplantation and Clinical Regeneration in [place], [place] [address] [place] [address] Sheree Franz M.D. [address] [place] [phone] Alyse Chang M.S.W., L.I.C.S.W. [address] [place] [address] 03/11/2024 10:00 AM STUDENT DEAN Office Visit [facility] in [place], [place] [address] [place] [address] Sheree Franz M.D. [address] [place] [phone] 03/11/2024 11:00 AM STUDENT DEAN Comprehensive Visit Freddy Slade [facility] Transplantation and Clinical Regeneration in [place], [place] [address] [place] [address] Sheree Franz M.D. [address] [place] [phone] 03/11/2024 1:00 PM STUDENT DEAN Nurse Only [facility] in [place], [place] [address] [place] [address] Sheree Franz M.D. [address] [place] [phone] 03/11/2024 4:00 PM STUDENT DEAN Office Visit [facility] in [place], [place] [address] [place] [address] Idalia Hand M.D. [address] [place] [address] 03/23/2024 1:30 PM STUDENT DEAN Appointment Department of Radiology, [facility], in [place], [place] [address] [place] [address] Glen Baker M.D. [address] [place] [address] Discharge Disposition: Home or Self Care 03/23/2024 3:00 PM STUDENT DEAN Nurse Only Division of Nephrology and Hypertension in [place], [place] [address] [place] [address] Glen Baker M.D. [address] [place] [address] documented as of this encounter Visit Diagnoses Not on filedocumented in this encounter Care Teams Supervisor Model Making Relationship Specialty Start Date End Date None Reported, Pcp PCP - General Family Medicine 03/10/23 documented as of this encounter
--- OUTSIDE RECORDS SUMMARY | 2024-02-20 23:58 | XMS_ITS ---
Author Organization [facility] Address [address] [place] [address] Care Team Providers Care Wood Flour Miller Name Role Phone None Reported, Pcp Primary Care Provider Unavail able Transplant Episode Kidney Candidate [facility] ([place], [place]) - [facility] Referred on 09/10/2023 Marked as Active on 09/10/2023 Kidney CoordinatorVandana Lauren R.N., C.C.T.C. Fax: N/A Email: [email or web address] Scores Score Value Updated Exceptions/Reas ons CPRA Not available EPTS (Calc) 16 02/20/2024 Care Team Name Role Phone Fax Email Vandana Lauren R.N., C.C.T.C. Kidney Coordinator [phone] N/A Zion [email or web address] Idalia Hand M.D. Transplant Bulk Sausage Casing Tier Off [phone] Hollie [email or web address] Jo Berg M.D., Ph.D. Referring Provider [phone] Xander [email or web address] Shahid Edge M.D. Transplant Surgeon [phone] [email or web address] Pre-Transplant Referred: 09/10/2023 Appointments (01/20/2024 - 03/22/2024) When With Visit Type Description 03/02/2024 PTE Individual Educa tional Visit 03/09/2024 END - Kyaw Dodson Consult ation 03/09/2024 LAB Blood Test 03/09/2024 LAB Urine Container Visit 03/09/2024 TXP Finance Visit 03/09/2024 CVD Electrocardiogra m ECG Testing 03/09/2024 LAB Blood Test Canceled (Clini c: Earlier Appointment) 03/09/2024 LAB Urine Container Visit Cancel ed (Clinic: Earlier Appointment) 03/09/2024 TXP - Ainsley Hand Evaluation 03/10/2024 TXP - Fred Edge Surgery Consulta tion 03/10/2024 TXP Nutrition Consultation Cance led (Clinic: Earlier Appointment) 03/10/2024 TXP Nurse Consultation Canceled (Clinic: Earlier Appointment) 03/11/2024 TXP Nutrition Consul tation 03/11/2024 TXP Nurse Consultati on 03/11/2024 Ainsley Broussard Office Visit 03/11/2024 PHR Pharmacist Consu ltation 03/11/2024 TXKyaw Regalado Social Wor ker Consultation 03/12/2024 Ainsley Broussard Office Visit Canceled (Cli clementina: Earlier Appointment) Dialysis History Dialysis History Start End Type Comments Center 04/18/2023 In-center Hemodialysis MWSivakumar Zamarri[facility] Information Center Phone Fax Address [facility] [phone] [place] [address]
--- OUTSIDE RECORDS SUMMARY | 2024-02-20 23:58 | XMS_ITS | Encounter Summary ---
Author Organization [facility] Address [address] [place] [address] Care Team Providers Care Filler Sifter Machine Name Role Phone None Reported, Pcp Primary Care Provider Unavail able Reason for Visit * Reason Onset Date Comments Appointment 12/23/2023 KTE Surgical Vis it Encounter Details Date Type Department Care Team (Latest Contact Info) Description 12/23/2023 Clinical Communication Freddy martin [facility] Transplantation and Clinical Regeneration in [place], [place] [address] [place] [address] Linnette Marti R.N., C.C.T.C. [address] [place] [phone] Appointment (KTE Surgical Visit) Social History Tobacco Use Types Packs/Day Years Used Date Smoking Tobacco: Never Smokeless Tobacco: Never Alcohol Use Standard Drinks/Week Comments Never 0 (1 standard drink = 0.6 oz pur e alcohol) [facility] Utilities Answer Date Recorded In the past [...] your living situation today? I have a [facility] live 11/07/2023 Comments No Sex and Gender Information Value Date Recorded Sex Assigned at Female 03/13/2023 1:38 PM FOLDER TAPER OPERATOR Legal Sex Female 10:08 PM FOLDER TAPER OPERATOR Gender Identity Female 03/13/2023 1:42 PM FOLDER TAPER OPERATOR Sexual Orientation Straight 03/13/2023 1: 42 PM FOLDER TAPER OPERATOR documented as of this encounter Plan of Treatment Upcoming Encounters Date Type Department Care Team (Latest Contact Info) Description 03/02/2024 10:00 AM FOLDER TAPER OPERATOR Telemedicine Department of Patient Education in [place], [place] [address] [place] [phone] Sheree Franz M.D. [address] [place] [phone] 03/05/2024 11:30 AM FOLDER TAPER OPERATOR Clinical Communication Virtual Review in [place], [place] 200 [place] [address] 03/09/2024 6:40 AM FOLDER TAPER OPERATOR Lab Department of Laboratory Medicine and Pathology, [facility] in [place], [place] [address] [place] [phone] Sheree Franz M.D. [address] [place] [phone] 03/09/2024 6:50 AM FOLDER TAPER OPERATOR Lab Department of Laboratory Medicine and Pathology, [facility] in [place], [place] [address] [place] [phone] Sheree Franz M.D. [address] [place] [phone] 03/09/2024 7:20 AM FOLDER TAPER OPERATOR Ancillary Procedure Department of Cardiovascular Medicine in [place], [place] [address] [place] [phone] Sheree Franz M.D. [address] [place] [phone] 03/09/2024 9:00 AM FOLDER TAPER OPERATOR Comprehensive Visit Division of Endocrinology in [place], [place] [address] [place] [phone] Jo Farris M.D. [address] [place] [phone] 03/09/2024 10:30 AM FOLDER TAPER OPERATOR Comprehensive Visit [facility] in [place], [place] [address] [place] [address] Idalia Hand M.D. [address] [place] [phone] 03/09/2024 12:00 PM FOLDER TAPER OPERATOR Appointment Department of Radiology, [facility], in [place], [place] [address] [place] [address] Sheree Franz M.D. [address] [place] [address] 03/09/2024 2:00 PM FOLDER TAPER OPERATOR Virtual Visit Freddy Diaz [facility] Clinical [facility]eneration in [place], [place] [address] [place] [address] Sheree Franz M.D. [address] [place] [phone] 03/09/2024 3:20 PM FOLDER TAPER OPERATOR Appointment Department of Cardiovascular Diseases in [place], [place] [address] [place] [address] Sheree Franz M.D. [address] [place] [phone] 03/10/2024 9:00 AM FOLDER TAPER OPERATOR Comprehensive Visit Freddy Diaz [facility] in [place], [place] [address] [place] [address] Shahid Edge M.D. [address] [place] [phone] 03/10/2024 1:30 PM FOLDER TAPER OPERATOR Appointment Division of Nephrology and Hypertension, [facility], in [place], [place] [address] [place] [address] Nicholas Tracey, MATCH MAKER, C.N.P., M.S.N. [address] [place] [phone] 03/11/2024 8:00 AM FOLDER TAPER OPERATOR Clinical Support Freddy martin [facility] Clinical Regeneration in [place], [place] [address] [place] [address] Sheree Franz M.D. [address] [place] [phone] Alyse Chang M.S.W., L.I.C.S.W. [address] [place] [phone] 03/11/2024 10:00 AM FOLDER TAPER OPERATOR Office Visit Freddy [place] martin [facility] Transplantation and Clinical Regeneration in [place], [place] [address] [place] [address] Sheree Franz M.D. [address] [place] [phone] 03/11/2024 11:00 AM FOLDER TAPER OPERATOR Comprehensive Visit [facility] in [place], [place] [address] [place] [address] Sheree Franz M.D. [address] [place] [phone] 03/11/2024 1:00 PM FOLDER TAPER OPERATOR Nurse Only Freddy martin [facility] Clinical Regeneration in [place], [place] [address] [place] [address] Sheree Franz M.D. [address] [place] [phone] 03/11/2024 4:00 PM FOLDER TAPER OPERATOR Office Visit Freddy martin [facility] Clinical [facility]eneration in [place], [place] [address] [place] [address] Idalia Hand M.D. [address] [place] [phone] 03/23/2024 1:30 PM FOLDER TAPER OPERATOR Appointment Department of Radiology, [facility], in [place], [place] [address] [place] [address] Glen Baker M.D. [address] [place] [phone] Discharge Disposition: Home or Self Care 03/23/2024 3:00 PM FOLDER TAPER OPERATOR Nurse Only Division of Nephrology and Hypertension in [place], [place] [address] [place] [address] Glen Baker M.D. [address] [place] [phone] documented as of this encounter Visit Diagnoses Not on filedocumented in this encounter Care Teams Filler Sifter Machine Relationship Specialty Start Date End Date None Reported, Pcp PCP - General Family Medicine 03/10/23 documented as of this encounter
--- OUTSIDE RECORDS SUMMARY | 2024-02-20 23:58 | XMS_ITS | Encounter Summary ---
Author Organization [facility] Address [address] [place] [address] Care Team Providers Care Appraiser Personal Property Name Role Phone None Reported, Pcp Primary Care Provider Unavail able Reason for Referral * Behavioral Health (Routine) - Authorized Specialty Diagnoses / Procedures Referred By Contac t Referred To Contact Psychiatry / Psychiatry and Psychology Diagnoses Morbid Obesity Body Mass Index 40.0-44.9 Adult (HCC) Shahid Edge M.D. 200 [place] [address] Phone: tel: fax: [facility] Referral ID Status Reason Start Date Expiration Date V isits Requested Visits Authorized [id number] Authorized 12/24/2023 06/24/2025 1 1 Scheduling Instructions coordinated with future visit KTE 03/09-03/11 S FEEDER BROOMCORN * Outpatient (Routine) - Authorized Specialty Diagnoses / Procedures Referred By Contac t Referred To Contact Endocrinology Diagnoses Morbid Obesity Body Mass Index 40.0-44.9 Adult ([facility]) Shahid Edge M.D. [address] [place] [address] Phone: tel: fax: [facility] Referral ID Status Reason Start Date Expiration Date V isits Requested Visits Authorized [id number] Authorized 12/24/2023 06/24/2025 1 1 Scheduling Instructions coordinated with future visit KTE 03/09-03/11 S FEEDER BROOMCORN Encounter Details Date Type Department Care Team (Late st Contact Info) Description 12/23/2023 Orders Only Freddy martin [facility] for Transplantation and Clinical Regeneration in [place], [place] [address] [place] [address] Linnette Marti R.N., C.C.T.C. [address] [place] [address] Morbid Obesity Body Mass Index 40.0-44.9 Adult (HCC) (Primary Dx) Social History Tobacco Use Types Packs/Day Years Used Date Smoking Tobacco: Never Smokeless Tobacco: Never Alcohol Use Standard Drinks/Week Comments Never 0 (1 standard drink = 0.6 oz pur e alcohol) [facility] Utilities Answer Date Recorded In the past 12 months has [employer], gas, oil, or water [email or web address] threatened to shut off services in your [...] have a [facility] place to live 11/07/2023 Comments No Sex and Gender Information Value Date Recorded Sex Assigned at Female 03/13/2023 1:38 PM PRESS FEEDER BROOMCORN Legal Sex Female 10:08 PM PRESS FEEDER BROOMCORN Gender Identity Female 03/13/2023 1:42 PM PRESS FEEDER BROOMCORN Sexual Orientation Straight 03/13/2023 1: 42 PM PRESS FEEDER BROOMCORN documented as of this encounter Plan of Treatment Upcoming Encounters Date Type Department Care Team (Latest Contact Info) Description 03/02/2024 10:00 AM PRESS FEEDER BROOMCORN Telemedicine Department of Patient Education in [place], [place] [address] [place] [phone] Sheree Franz M.D. [address] [place] [phone] 03/05/2024 11:30 AM PRESS FEEDER BROOMCORN Clinical Communication Virtual Review in [place], [place] 200 [place] [address] 03/09/2024 6:40 AM PRESS FEEDER BROOMCORN Lab Department of Laboratory Medicine and Pathology, [facility], in [place], [place] [address] [place] [phone] Sheree Franz M.D. [address] [place] [phone] 03/09/2024 6:50 AM PRESS FEEDER BROOMCORN Lab Department of Laboratory Medicine and Pathology, [facility], in [place], [place] [address] [place] [address] Sheree Franz M.D. [address] [place] [phone] 03/09/2024 7:20 AM PRESS FEEDER BROOMCORN Ancillary Procedure Department of Cardiovascular Medicine in [place], [place] [address] [place] [phone] Sheree Frnaz M.D. [address] [place] [phone] 03/09/2024 9:00 AM PRESS FEEDER BROOMCORN Comprehensive Visit Division of Endocrinology in [place], [place] [address] [place] [phone] Jo Farris M.D. [address] [place] [phone] 03/09/2024 10:30 AM PRESS FEEDER BROOMCORN Comprehensive Visit [facility] for Transplantation and Clinical Regeneration in [place], [place] [address] [place] [phone] Idalia Hand M.D. [address] [place] [phone] 03/09/2024 12:00 PM PRESS FEEDER BROOMCORN Appointment Department of Radiology, [facility], in [place], [place] [address] [place] [address] Sheree Franz M.D. [address] [place] [phone] 03/09/2024 2:00 PM PRESS FEEDER BROOMCORN Virtual Visit Freddy Slade [facility] for Transplantation and Clinical Regeneration in [place], [place] [address] [place] [phone] Sheree Franz M.D. [address] [place] [phone] 03/09/2024 3:20 PM PRESS FEEDER BROOMCORN Appointment Department of Cardiovascular Diseases in [place], [place] [address] [place] [phone] Sheree Franz M.D. [address] [place] [phone] 03/10/2024 9:00 AM PRESS FEEDER BROOMCORN Comprehensive Visit [facility] Transplantation and Clinical Regeneration in [place], [place] [address] [place] [phone] Shahid Edge M.D. [address] [place] [phone] 03/10/2024 1:30 PM PRESS FEEDER BROOMCORN Appointment Division of Nephrology and Hypertension, [facility], in [place], [place] [address] [place] [phone] Nicholas Tracey, MAGY, C.N.P., M.S.N. [address] [place] [phone] 03/11/2024 8:00 AM PRESS FEEDER BROOMCORN Clinical Support [facility] for Transplantation and Clinical Regeneration in [place], [place] [address] [place] [phone] Sheree Franz M.D. [address] [place] [phone] Alyse Chang M.S.W., L.I.C.S.W. [address] [place] [phone] 03/11/2024 10:00 AM PRESS FEEDER BROOMCORN Office Visit [facility] in [place], [place] [address] [place] [address] Sheree Franz M.D. [address] [place] [phone] 03/11/2024 11:00 AM PRESS FEEDER BROOMCORN Comprehensive Visit [facility] Transplantation and Clinical Regeneration in [place], [place] [address] [place] [address] Sheree Franz M.D. [address] [place] [phone] 03/11/2024 1:00 PM PRESS FEEDER BROOMCORN Nurse Only [facility] Transplantation and Clinical Regeneration in [place], [place] [address] [place] [address] Sheree Franz M.D. [address] [place] [phone] 03/11/2024 4:00 PM PRESS FEEDER BROOMCORN Office Visit [facility] Transplantation and Clinical Regeneration in [place], [place] [address] [place] [address] Idalia Hand M.D. [address] [place] [phone] 03/23/2024 1:30 PM PRESS FEEDER BROOMCORN Appointment Department of Radiology, [facility], in [place], [place] [address] [place] [address] Glen Baker M.D. [address] [place] [phone] Discharge Disposition: Home or Self Care 03/23/2024 3:00 PM PRESS FEEDER BROOMCORN Nurse Only Division of Nephrology and Hypertension in [place], [place] 200 [place] [address] Glen Baker M.D. [address] [place] [address] Scheduled Referrals Name Type Priority Associated Diagnoses Order Schedule Endocrinology - Bariatric consult (clinic) Outpatient Referral Routine Morbid Obesity Body Mass Index 40.0-44.9 Adult (HCC) Expected: 03/09/2024, Expires: 03/24/2025 Psychiatry and Psychology - Bariatric consult (clinic) Outpatient Referral Routine Morbid Obesity Body Mass Index 40.0-44.9 Adult (HCC) Expected: 03/09/2024, Expires: 03/24/2025 documented as of this encounter Visit Diagnoses Diagnosis Morbid Obesity Body Mass Index 40.0-44.9 Adult (HCC)- Primary documented in this encounter Care Teams Appraiser Personal Property Relationship Specialty Start Date End Date None Reported, Pcp PCP - General Family Medicine 03/10/23 documented as of this encounter
--- OUTSIDE RECORDS SUMMARY | 2024-02-20 23:58 | XMS_ITS | Encounter Summary ---
Author Organization [facility] Address [address] [place] [address] Care Team Providers Care Acidity Tester Name Role Phone None Reported, Pcp Primary Care Provider Unavail able Encounter Details Date Type Department Care Team (Late st Contact Info) Description 12/22/2023 Orders Only Division of Nephrology and Hypertension, [facility], in [place], [place] [address] [place] [phone] Nicholas Tracey P, MAGY, C.N.P., M.S.N. [address] [place] [phone] Social History Tobacco Use Types Packs/Day Years Used Date Smoking Tobacco: Never Smokeless Tobacco: Never Alcohol Use Standard Drinks/Week Comments Never 0 (1 standard drink = 0.6 oz pur e alcohol) [facility] Utilities Answer Date Recorded In the past 12 months has [employer], gas, oil, or water [employer] threatened to shut off services in your [...] [facility] place to live 11/07/2023 Comments No Sex and Gender Information Value Date Recorded Sex Assigned at Female 03/13/2023 1:38 PM BONDERITE OPERATOR Legal Sex Female 10:08 PM BONDERITE OPERATOR Gender Identity Female 03/13/2023 1:42 PM BONDERITE OPERATOR Sexual Orientation Straight 03/13/2023 1: 42 PM BONDERITE OPERATOR documented as of this encounter Plan of Treatment Upcoming Encounters Date Type Department Care Team (Latest Contact Info) Description 03/02/2024 10:00 AM BONDERITE OPERATOR Telemedicine Department of Patient Education in [place], [place] [address] [place] [phone] Sheree Franz M.D. [address] [place] [phone] 03/05/2024 11:30 AM BONDERITE OPERATOR Clinical Communication Virtual Review in [place], [place] 200 [place] [address] 03/09/2024 6:40 AM BONDERITE OPERATOR Lab Department of Laboratory Medicine and Pathology, [facility] in [place], [place] [address] [place] [phone] Sheree Franz M.D. [address] [place] [phone] 03/09/2024 6:50 AM BONDERITE OPERATOR Lab Department of Laboratory Medicine and Pathology, [facility] in [place], [place] [address] [place] [phone] Sheree Franz M.D. [address] [place] [phone] 03/09/2024 7:20 AM BONDERITE OPERATOR Ancillary Procedure Department of Cardiovascular Medicine in [place], [place] [address] [place] [phone] Sheree Franz M.D. [address] [place] [phone] 03/09/2024 9:00 AM BONDERITE OPERATOR Comprehensive Visit Division of Endocrinology in [place], [place] [address] [place] [phone] Jo Farris M.D. [address] [place] [phone] 03/09/2024 10:30 AM BONDERITE OPERATOR [facility] in [place], [place] [address] [place] [phone] Idalia Hand M.D. [address] [place] [address] 03/09/2024 12:00 PM BONDERITE OPERATOR Appointment Department of Radiology, [facility], in [place], [place] [address] [place] [address] Sheree Franz M.D. [address] [place] [address] 03/09/2024 2:00 PM BONDERITE OPERATOR Virtual Visit Freddy Diaz [facility] in [place], [place] [address] [place] [address] Sheree Franz M.D. [address] [place] [phone] 03/09/2024 3:20 PM BONDERITE OPERATOR Appointment Department of Cardiovascular Diseases in [place], [place] [address] [place] [address] Sheree Franz M.D. [address] [place] [phone] 03/10/2024 9:00 AM BONDERITE OPERATOR Comprehensive Visit Freddy Diaz [facility] in [place], [place] [address] [place] [address] Shahid Edge M.D. [address] [place] [phone] 03/10/2024 1:30 PM BONDERITE OPERATOR Appointment Division of Nephrology and Hypertension, [facility], in [place], [place] [address] [place] [address] Nicholas Tracey, LEGAL WORD PROCESSOR, C.N.P., M.S.N. [address] [place] [address] 03/11/2024 8:00 AM BONDERITE OPERATOR Clinical Support Freddy martin [facility] Transplantation [facility] Clinical Regeneration in [place], [place] [address] [place] [address] Sheree Franz M.D. [address] [place] [phone] Alyse Chang M.S.W., L.IJanieC.S.W. [address] [place] [address] 03/11/2024 10:00 AM BONDERITE OPERATOR Office Visit Freddy martin [facility] Transplantation and Clinical Regeneration in [place], [place] [address] [place] [address] Sheree Franz M.D. [address] [place] [phone] 03/11/2024 11:00 AM BONDERITE OPERATOR Comprehensive Visit Freddy martin [facility] Transplantation and Clinical Regeneration in [place], [place] [address] [place] [address] Sheree Franz M.D. [address] [place] [phone] 03/11/2024 1:00 PM BONDERITE OPERATOR Nurse Only Freddy Slade [facility] Transplantation and Clinical Regeneration in [place], [place] [address] [place] [address] Sheree Franz M.D. [address] [place] [phone] 03/11/2024 4:00 PM BONDERITE OPERATOR Office Visit Freddy Slade [facility] Transplantation and Clinical Regeneration in [place], [place] [address] [place] [address] Idalia Hand M.D. [address] [place] [address] 03/23/2024 1:30 PM BONDERITE OPERATOR Appointment Department of Radiology, [facility], in [place], [place] [address] [place] [address] Glen Baker M.D. [address] [place] [phone] Discharge Disposition: Home or Self Care 03/23/2024 3:00 PM BONDERITE OPERATOR Nurse Only Division of Nephrology and Hypertension in [place], [place] [address] [place] [address] Glen Baker M.D. [address] [place] [phone] documented as of this encounter Visit Diagnoses Not on filedocumented in this encounter Care Teams Acidity Tester Relationship Specialty Start Date End Date None Reported, Pcp PCP - General Family Medicine 03/10/23 documented as of this encounter
--- OUTSIDE RECORDS SUMMARY | 2024-02-20 23:58 | XMS_ITS ---
Author Organization [facility] Address [address] [place] [address] Care Team Providers Care Cfo Name Role Phone None Reported, Pcp Primary Care Provider Unavail able Bariatrics Program Status:Identified (Enrolling) Start date:12/23/2023 Continued Care and Services Coordination
--- OUTSIDE RECORDS SUMMARY | 2024-02-20 23:58 | XMS_ITS | Encounter Summary ---
Author Organization [facility] Address [address] [place] [address] Care Team Providers Care Environmental Technical Officer Name Role Phone None Reported, Pcp Primary Care Provider Unavail able Reason for Visit * Reason Comments Phone Contact Encounter Details Date Type Department Care Team (Latest Contact Info) Description 12/16/2023 Clinical Communication Division of Nephrology and Hypertension in [place], [place] [address] [place] [address] Jo Root M.D., Ph.D. [address] [place] [phone] Phone Contact Social History Tobacco Use Types Packs/Day Years Used Date Smoking Tobacco: Never Smokeless Tobacco: Never Alcohol Use Standard Drinks/Week Comments Never 0 (1 standard drink = 0.6 oz pur e alcohol) [facility] Utilities Answer Date Recorded In the past 12 months has [employer], gas, oil, or water [employer] threatened to shut off services in your [...] [facility] live 11/07/2023 Comments No Sex and Gender Information Value Date Recorded Sex Assigned at Female 03/13/2023 1:38 PM SUPERVISOR MECHANIC BOILERMAKING Legal Sex Female 10:08 PM SUPERVISOR MECHANIC BOILERMAKING Gender Identity Female 03/13/2023 1:42 PM SUPERVISOR MECHANIC BOILERMAKING Sexual Orientation Straight 03/13/2023 1: 42 PM SUPERVISOR MECHANIC BOILERMAKING documented as of this encounter Plan of Treatment Upcoming Encounters Date Type Department Care Team (Latest Contact Info) Description 03/02/2024 10:00 AM SUPERVISOR MECHANIC BOILERMAKING Telemedicine Department of Patient Education in [place], [place] [address] [place] [address] Sheree Franz M.D. [address] [place] [phone] 03/05/2024 11:30 AM SUPERVISOR MECHANIC BOILERMAKING Clinical Communication Virtual Review in [place], [place] 200 [place] [address] 03/09/2024 6:40 AM SUPERVISOR MECHANIC BOILERMAKING Lab Department of Laboratory Medicine and Pathology, [facility] in [place], [place] [address] [place] [phone] Sheree Franz M.D. [address] [place] [phone] 03/09/2024 6:50 AM SUPERVISOR MECHANIC BOILERMAKING Lab Department of Laboratory Medicine and Pathology, [facility] in [place], [place] [address] [place] [phone] Sheree Franz M.D. [address] [place] [phone] 03/09/2024 7:20 AM SUPERVISOR MECHANIC BOILERMAKING Ancillary Procedure Department of Cardiovascular Medicine in [place], [place] [address] [place] [phone] Sheree Franz M.D. [address] [place] [phone] 03/09/2024 9:00 AM SUPERVISOR MECHANIC BOILERMAKING Comprehensive Visit Division of Endocrinology in [place], [place] [address] [place] [phone] Jo Farris M.D. [address] [place] [phone] 03/09/2024 10:30 AM SUPERVISOR MECHANIC BOILERMAKING Comprehensive Visit Freddy Berlin [facility] for Transplantation and Clinical Regeneration in [place], [place] [address] [place] [phone] Idalia Hand M.D. [address] [place] [address] 03/09/2024 12:00 PM SUPERVISOR MECHANIC BOILERMAKING Appointment Department of Radiology, [facility], in [place], [place] [address] [place] [address] Sheree Franz M.D. [address] [place] [phone] 03/09/2024 2:00 PM SUPERVISOR MECHANIC BOILERMAKING Virtual Visit Freddy Diaz [facility] in [place], [place] [address] [place] [address] Sheree Franz M.D. [address] [place] [phone] 03/09/2024 3:20 PM SUPERVISOR MECHANIC BOILERMAKING Appointment Department of Cardiovascular Diseases in [place], [place] [address] [place] [address] Sheree Franz M.D. [address] [place] [phone] 03/10/2024 9:00 AM SUPERVISOR MECHANIC BOILERMAKING Comprehensive [facility] in [place], [place] [address] [place] [address] Shahid Edge M.D. [address] [place] [phone] 03/10/2024 1:30 PM SUPERVISOR MECHANIC BOILERMAKING Appointment Division of Nephrology and Hypertension, [facility], in [place], [place] [address] [place] [address] Nicholas Tracey, EXPORT FREIGHT MANAGER, C.N.P., M.S.N. [address] [place] [phone] 03/11/2024 8:00 AM SUPERVISOR MECHANIC BOILERMAKING Clinical Support [facility] in [place], [place] [address] [place] [address] Sheree Franz M.D. [address] [place] [phone] Alyse Cahng M.SVirginia., L.IJanieC.S.W. [address] [place] [phone] 03/11/2024 10:00 AM SUPERVISOR MECHANIC BOILERMAKING Office Visit Freddy Berlin [facility] Transplantation and Clinical Regeneration in [place], [place] [address] [place] [address] Sheree Franz M.D. [address] [place] [phone] 03/11/2024 11:00 AM SUPERVISOR MECHANIC BOILERMAKING Comprehensive Visit Freddy Slade [facility] Transplantation and Clinical Regeneration in [place], [place] [address] [place] [address] Sheree Franz M.D. [address] [place] [phone] 03/11/2024 1:00 PM SUPERVISOR MECHANIC BOILERMAKING Nurse Only Freddy Slade [facility] and Clinical [facility]eneration in [place], [place] [address] [place] [address] Sheree Franz M.D. [address] [place] [phone] 03/11/2024 4:00 PM SUPERVISOR MECHANIC BOILERMAKING Office [facility] in [place], [place] [address] [place] [address] Idalia Hand M.D. [address] [place] [address] 03/23/2024 1:30 PM SUPERVISOR MECHANIC BOILERMAKING Appointment Department of Radiology, [facility], in [place], [place] [address] [place] [address] Glen Baker M.D. [address] [place] [phone] Discharge Disposition: Home or Self Care 03/23/2024 3:00 PM SUPERVISOR MECHANIC BOILERMAKING Nurse Only Division of Nephrology and Hypertension in [place], [place] [address] [place] [address] Glen Baker M.D. [address] [place] [phone] documented as of this encounter Visit Diagnoses Not on filedocumented in this encounter Care Teams Environmental Technical Officer Relationship Specialty Start Date End Date None Reported, Pcp PCP - General Family Medicine 03/10/23 documented as of this encounter
[2024-02-21 00:02] VITALS: BP 146/73; PULSE 74; RESP 16; TEMP 37; O2SAT 97; BMI 45.6
--- NOTE | 2024-02-21 00:12 | CRLHL7_ITS ---
For Patients: As a result of the Cures Act, medical imaging exams and procedure reports are released immediately into your electronic medical record. You may view this report before your referring provider. If you have questions, please contact your health care provider. INDICATION: dialysis catheter dislodged. TECHNIQUE: Chest 2 views. COMPARISON: 11/06/23. FINDINGS: Cardiovascular and mediastinum: Cardiomediastinal silhouette is within normal limits. No dialysis catheter is identified. Lungs and pleural spaces: Lungs are clear. No sign of pleural effusion. No pneumothorax. Bones and soft tissues: No significant findings. IMPRESSION: No acute findings.No dialysis catheter identified. Dictated by Janett Pelletier MD @ 02/21/2024 12:59:29 AM (Electronically Signed)
--- OUTSIDE RECORDS SUMMARY | 2024-02-21 00:27 | XMS_ITS | Clinical Summary ---
Author Organization [facility] Address [address] [place] [address] Care Team Providers Care Director Of Marketing [employer] Name Role Phone No Ref-Primary, Physician Primary [...] age to complete this topic Care Teams Director Of Marketing [employer] Relationship Specialty Start Date End Date No Ref-Primary, Physician PCP - General 05/25/21
--- OUTSIDE RECORDS SUMMARY | 2024-02-21 00:27 | XMS_ITS | Referral Summary ---
Author Organization [facility] Address [address] [place] [address] Care Team Providers Care Warehouse Picker Name Role Phone No Ref-Primary, Physician Primary [...] of Treatment Not on file Care Teams Warehouse Picker Relationship Specialty Start Date End Date No Ref-Primary, Physician PCP - General 05/25/21
--- OUTSIDE RECORDS SUMMARY | 2024-02-21 00:28 | XMS_ITS | Clinical Summary ---
Author Organization [facility] Address [address] [place] [id number] Care Team Providers Care Glass Technician/Installer Name Role Phone None Reported, Pcp Primary Care Provider Unavail able Source Comments Patient records contain information from all sites at [facility]. For routine questions regarding patient records, call [phone] during business hours, M-F 8:00 AM - 5:00 PM Central Time. Record requests for emergency care only can be directed to [phone] at any time.[facility] Allergies No known active allergies Medications carvediloL [...] Orders Only Division of Nephrology and Hypertension, [facility], in [place], [place] [address] [place] [address] Nicholas Tracey, MAGY, C.N.P., M.S.N. 02/13/2024 Orders Only Division of Nephrology and Hypertension in [place], [place] [address] [place] [phone] Yennifer Valderrama M.SJanis., R.N. 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 Amos Torres M.D. Complication Dialysis Catheter Subsequent; Chronic Failure Renal End Stage Renal Disease Dialysis Dependent (HCC) Discharge Disposition: Home or Self Care 02/06/2024 Documentation Division of Nephrology and Hypertension, [facility], [place], [place] [address] [place] [phone] Nicholas Tracey APRN, C.N.P., M.S.N. 02/06/2024 Orders Only Division of Nephrology and Hypertension, [facility], in [place], [place] [address] [place] [phone] Nicholas Tracey APRN C.N.P., M.S.N. Complication Dialysis Catheter Subsequent (Primary Dx); Chronic Failure Renal End Stage Renal Disease Dialysis Dependent (HCC) 02/05/2024 8:50 AM CONTINUOUS PICKLING LINE PICKLER HELPER Anesthesia Event [facility] [address] [place] [phone] Tao Bello M.D. 02/05/2024 7:45 AM CONTINUOUS PICKLING LINE PICKLER HELPER - 02/05/2024 11:03 AM CONTINUOUS PICKLING LINE PICKLER HELPER Surgery [facility] OR [address] [place] [phone] Glen Baker M.D. CREATION FISTULA RADIOCEPHALIC ARTERIOVENOUS 02/05/2024 5:41 AM CONTINUOUS PICKLING LINE PICKLER HELPER - 02/05/2024 3:22 PM CONTINUOUS PICKLING LINE PICKLER HELPER Hospital Encounter [facility] [address] [place] [phone] Glen Baker M.D. Discharge Disposition: Home or Self Care 02/01/2024 10:38 AM CONTINUOUS PICKLING LINE PICKLER HELPER - 02/01/2024 11:59 PM CONTINUOUS PICKLING LINE PICKLER HELPER Hospital Encounter Department of Radiology, [facility], in [place], [place] [address] [place] [address] Jo Root M.D., Ph.D. Nodule Pulmonary Discharge Disposition: Home or Self Care 01/30/2024 Clinical Communication Division of Nephrology and Hypertension in [place], [place] [address] [place] [phone] Jo Root M.D., Ph.D. 01/22/2024 1:00 PM CONTINUOUS PICKLING LINE PICKLER HELPER Internal E-Consult Department of Cardiovascular Medicine in [place], [place] [address] [place] [phone] Samuel Love M.B., Ch.B., D.Leonardo. Patent Foramen Ovale (HCC) 01/21/2024 10:05 AM CONTINUOUS PICKLING LINE PICKLER HELPER - 01/21/2024 3:35 PM CONTINUOUS PICKLING LINE PICKLER HELPER Hospital Encounter Department of Radiology in [place], [place] [address] [place] [address] Nicholas Tracey APRN, C.N.P., M.S.N. Antony Liz M.D. Complication Dialysis Catheter Subsequent; Chronic Failure Renal End Stage Renal Disease Dialysis Dependent (HCC) Discharge Disposition: Home or Self Care 01/21/2024 Orders Only Division of Nephrology and Hypertension in [place], [place] [address] [place] [address] Jo Root M.D., Ph.D. Nodule Pulmonary (Primary Dx) 01/21/2024 Documentation Division of Nephrology and Hypertension, [facility], in [place], [place] [address] [place] [phone] Nicholas Tracey APRN, C.N.P., M.S.N. 01/21/2024 Orders Only Division of Nephrology and Hypertension, [facility], in [place], [place] [address] [place] [address] Nicholas Tracey APRN, C.N.P., M.S.N. Complication Dialysis Catheter Subsequent (Primary Dx); Chronic Failure Renal End Stage Renal Disease Dialysis Dependent (HCC) 01/19/2024 8:55 AM CONTINUOUS PICKLING LINE PICKLER HELPER Ancillary Procedure Department of Radiology in [place], [place] [address] [place] [address] Aleks Velasquez Jr., M.D. Nodule Pulmonary 01/19/2024 8:00 AM CONTINUOUS PICKLING LINE PICKLER HELPER Internal E-Consult Division of Pulmonary Medicine in [place], [place] [address] [place] [phone] Aleks Velasquez Jr., M.D. Nodule Pulmonary 12/26/2023 4:18 PM CONTINUOUS PICKLING LINE PICKLER HELPER - 12/26/2023 6:50 PM CONTINUOUS PICKLING LINE PICKLER HELPER Hospital Encounter Department of Radiology in [place], [place] [address] [place] [phone] Nicholas Tracey APRN, C.N.P., M.S.N. Ascencion Rodrigues M.D. Complication Dialysis Catheter Subsequent Discharge Disposition: Home or Self Care 12/26/2023 Documentation Division of Nephrology and Hypertension, [facility], in [place], [place] [address] [place] [address] Nicholas Tracey APRN C.N.P., M.S.N. 12/26/2023 Orders Only Division of Nephrology and Hypertension, [facility], in [place], [place] [address] [place] [address] Nicholas Tracey APRN C.N.P., M.S.N. Complication Dialysis Catheter Subsequent (Primary Dx); Chronic Failure Renal End Stage Renal Disease Dialysis Dependent (HCC) 12/24/2023 Orders Only Division of Nephrology and Hypertension, [facility], in [place], [place] [address] [place] [address] Nicholas Tracey APRN C.N.P., M.S.N. 12/23/2023 10:00 AM CONTINUOUS PICKLING LINE PICKLER HELPER Clinical Communication Freddy martin [facility] for Transplantation and Clinical Regeneration in [place], [place] [address] [place] [address] Shahid Edge M.D. Heyer, Danielle R, R.N., C.C.T.C. Weight Loss (Initial Nurse Consult) 12/23/2023 Orders Only [facility] Transplantation and Clinical Regeneration in [place], [place] [address] [place] [phone] Linnette Marti R.N., RejiTJanieCJanie Morbid Obesity Body Mass Index 40.0-44.9 Adult (HCC) (Primary Dx) 12/23/2023 Clinical Communication [facility] Transplantation and Clinical Regeneration in [place], [place] [address] [place] [address] Linnette Marti R.N., WalterCJanieTJanieC. Appointment (KTE Surgical Visit) 12/22/2023 Orders Only Division of Nephrology and Hypertension, [facility], in [place], [place] [address] [place] [address] Nicholas Tracey APRN C.N.P., M.S.N. 12/20/2023 Orders Only Division of Nephrology and Hypertension, [facility], in [place], [place] [address] [place] [address] Nicholas Tracey APRN C.N.P., M.S.N. 12/19/2023 Documentation Division of Nephrology and Hypertension, [facility], in [place], [place] [address] [place] [address] Nicholas Tracey APRN C.N.P., M.S.N. 12/19/2023 Orders Only Division of Nephrology and Hypertension, [facility], in [place], [place] [address] [place] [address] Nicholas Tracey APRN C.N.P., M.S.N. Complication Dialysis Catheter Subsequent (Primary Dx); Chronic Failure Renal End Stage Renal Disease Dialysis Dependent (HCC) 12/18/2023 Clinical Communication [facility] Transplantation and Clinical Regeneration in [place], [place] [address] [place] [phone] Nataliia Jackson R.N. 12/16/2023 Clinical Communication Division of Nephrology and Hypertension in [place], [place] [address] [place] [address] Jo Root M.D., Ph.D. Phone Contact 12/15/2023 Documentation Division of Nephrology and Hypertension in [place], [place] [address] [place] [address] Rosanna Serrato, R.N. 12/15/2023 Orders Only [facility] for Transplantation and Clinical Regeneration in [place], [place] [address] [place] [address] Linnette Marti R.N., C.C.T.C. Morbid Obesity Body Mass Index 40.0-44.9 Adult (HCC) (Primary Dx) 12/11/2023 9:00 AM CDT Clinical Communication [facility] Transplantation and Clinical Regeneration in [place], [place] [address] [place] [address] Nataliia Jackson R.N. Txp Initial RN Phone Interview 12/11/2023 Orders Only [facility] Transplantation and Clinical Regeneration in [place], [place] [address] [place] [address] Nataliia Jackson R.N. Chronic Kidney Disease Stage 5 GFR Less Than 15 Dialysis Dependent (HCC) (Primary Dx); Hemodialysis Status (HCC); Glomerulonephritis Immunoglobulin A (IgA Nephropathy); Hypertension Essential Primary; Nodule Pulmonary 12/09/2023 Clinical Communication Division of Nephrology and Hypertension in [place], [place] [address] [place] [address] Jo Root M.D., Ph.D. 12/09/2023 Orders Only Division of Nephrology and Hypertension in [place], [place] [address] [place] [phone] Jo Root M.D., Ph.D. Patent Foramen Ovale (HCC) (Primary Dx) 12/09/2023 Orders Only Division of Nephrology and Hypertension in [place], [place] [address] [place] [phone] Jo Root M.D., Ph.D. Nodule Pulmonary (Primary Dx) 12/01/2023 Patient Outreach Section of Infectious Diseases in [place], [place] [address] [place] [phone] Anny Nazario RJanis. 12/01/2023 Documentation Division of Nephrology and Hypertension in [place], [place] [address] [place] [phone] Carrington Perrin Jr., D.OJanie 11/27/2023 1:00 PM CDT Comprehensive Visit Division of Vascular and Endovascular Surgery in [place], [place] [address] [place] [phone] Jo Root M.D., Ph.D. Glen Baker M.D. Chronic Kidney Disease Stage 5 GFR Less Than 15 Dialysis Dependent (HCC) 11/27/2023 10:30 AM CDT Nurse Only Division of Nephrology and Hypertension in [place], [place] [address] [place] [phone] Jo Root M.D., Ph.D. Rosanna Serrato R.N. 11/27/2023 8:18 AM CDT - 11/27/2023 11:59 PM CDT Hospital Encounter Department of Radiology, [facility], in [place], [place] [address] [place] [phone] Jo Root M.D., Ph.D. Chronic Kidney Disease Stage 5 GFR Less Than 15 Dialysis Dependent (HCC) Discharge Disposition: Home or Self Care 11/25/2023 Patient Outreach Section of Infectious Diseases in [place], [place] [address] [place] [phone] Antonia Roblero R.N. OPAT (Lab Entry) from Last 3 Months Immunizations Name Administration Dates Next Due DTaP (Infanrix, Tripedia) 03/08/2009 Influenza, Unspecified 11/27/2009,11/17/2008 Social History Tobacco Use Types Packs/Day Years Used Date Smoking Tobacco: Never Smokeless Tobacco: Never Tobacco Cessation:Counseling Given: Not Answered Alcohol Use Standard Drinks/Week Comments Never 0 (1 standard drink = 0.6 oz pur e alcohol) [facility] Utilities Answer Date Recorded In [...] living situation today? [facility] 11/07/2023 Comments No Sex and Gender Information Value Date Recorded Sex Assigned at Female 03/13/2023 1:38 PM CONTINUOUS PICKLING LINE PICKLER HELPER Legal Sex Female 10:08 PM CONTINUOUS PICKLING LINE PICKLER HELPER Gender Identity Female 03/13/2023 1:42 PM CONTINUOUS PICKLING LINE PICKLER HELPER Sexual Orientation Straight 03/13/2023 1: 42 PM CONTINUOUS PICKLING LINE PICKLER HELPER Last Filed Vital Signs Vital Sign Reading Time Taken Comments Blood Pressure 127/79 02/06/2024 2:00 PM CONTINUOUS PICKLING LINE PICKLER HELPER Pulse 77 02/06/2024 2:00 PM CONTINUOUS PICKLING LINE PICKLER HELPER Temperature 36.4 C (97.5 F) 02/06/2024 1:37 PM CONTINUOUS PICKLING LINE PICKLER HELPER Respiratory Rate 14 02/06/2024 2:00 PM CONTINUOUS PICKLING LINE PICKLER HELPER Oxygen Saturation 98% 02/06/2024 2:00 PM CONTINUOUS PICKLING LINE PICKLER HELPER Inhaled Oxygen Concentration - - Weight 109 kg (241 lb 1.2 oz) 02/06/2024 12:03 P M CONTINUOUS PICKLING LINE PICKLER HELPER Height 165.1 cm (5' 5) 02/05/2024 6:35 AM CONTINUOUS PICKLING LINE PICKLER HELPER Body Mass Index 40.12 02/05/2024 6:35 AM CONTINUOUS PICKLING LINE PICKLER HELPER Plan of Treatment Upcoming Encounters Date Type Department Care Team (Latest Contact Info) Description 03/02/2024 10:00 AM CONTINUOUS PICKLING LINE PICKLER HELPER Telemedicine Department of Patient Education in [address] [phone] Sheree Franz M.D. [address] [place] [phone] 03/05/2024 11:30 AM CONTINUOUS PICKLING LINE PICKLER HELPER Clinical Communication Virtual Review in [place], [place] [address] [place] [address] 03/09/2024 6:40 AM CONTINUOUS PICKLING LINE PICKLER HELPER Lab Department of Laboratory Medicine and Pathology, [facility] in [address] [phone] Sheree Franz M.D. [address] [place] [phone] 03/09/2024 6:50 AM CONTINUOUS PICKLING LINE PICKLER HELPER Lab Department of Laboratory Medicine and Pathology, [facility] in [place], [place] [address] [place] [phone] Sheree Franz M.D. [address] [place] [phone] 03/09/2024 7:20 AM CONTINUOUS PICKLING LINE PICKLER HELPER Ancillary Procedure Department of Cardiovascular Medicine in [place], [place] [address] [place] [address] Sheree Franz M.D. [address] [place] [phone] 03/09/2024 9:00 AM CONTINUOUS PICKLING LINE PICKLER HELPER Comprehensive Visit Division of Endocrinology in [place], [place] [address] [place] [address] Jo Farris M.D. [address] [place] [phone] 03/09/2024 10:30 AM CONTINUOUS PICKLING LINE PICKLER HELPER Comprehensive Visit Freddy martin [facility] for Transplantation and Clinical Regeneration in [place], [place] [address] [place] [phone] Idalia Hand M.D. [address] [place] [phone] 03/09/2024 12:00 PM CONTINUOUS PICKLING LINE PICKLER HELPER Appointment Department of Radiology, [facility], in [place], [place] [address] [place] [address] Sheree Franz M.D. [address] [place] [phone] 03/09/2024 2:00 PM CONTINUOUS PICKLING LINE PICKLER HELPER Virtual Visit Freddy martin [facility] for Transplantation and Clinical Regeneration in [place], [place] [address] [place] [phone] Sheree Franz M.D. [address] [place] [phone] 03/09/2024 3:20 PM CONTINUOUS PICKLING LINE PICKLER HELPER Appointment Department of Cardiovascular Diseases in [place], [place] [address] [place] [address] Sheree Franz M.D. [address] [place] [phone] 03/10/2024 9:00 AM CONTINUOUS PICKLING LINE PICKLER HELPER Comprehensive Visit Freddy Slade [facility] for Transplantation and Clinical Regeneration in [place], [place] [address] [place] [address] Shahid Edge M.D. [address] [place] [phone] 03/10/2024 1:30 PM CONTINUOUS PICKLING LINE PICKLER HELPER Appointment Division of Nephrology and Hypertension, [facility], in [place], [place] [address] [place] [address] Nicholas Tracey, MAGY, C.N.P., M.S.N. [address] [place] [phone] 03/11/2024 8:00 AM CONTINUOUS PICKLING LINE PICKLER HELPER Clinical Support [facility] for Transplantation and Clinical Regeneration in [place], [place] [address] [place] [address] Sheree Franz M.D. [address] [place] [phone] Alyse Chang, IbisS.Kayla., L.I.C.S.W. [address] [place] [phone] 03/11/2024 10:00 AM CONTINUOUS PICKLING LINE PICKLER HELPER Office Visit [facility] in [place], [place] [address] [place] [address] Sheree Franz M.D. [address] [place] [address] 03/11/2024 11:00 AM CONTINUOUS PICKLING LINE PICKLER HELPER [facility] in [place], [place] [address] [place] [address] Sheree Franz M.D. [address] [place] [phone] 03/11/2024 1:00 PM CONTINUOUS PICKLING LINE PICKLER HELPER Nurse Only [facility] Transplantation and Clinical Regeneration in [place], [place] [address] [place] [address] Sheree Franz M.D. [address] [place] [phone] 03/11/2024 4:00 PM CONTINUOUS PICKLING LINE PICKLER HELPER Office Visit [facility] Transplantation and Clinical Regeneration in [place], [place] [address] [place] [address] Idalia Hand M.D. [address] [place] [phone] 03/23/2024 1:30 PM CONTINUOUS PICKLING LINE PICKLER HELPER Appointment Department of Radiology, [facility], in [place], [place] [address] [place] [address] Glen Baker M.D. [address] [place] [phone] Discharge Disposition: Home or Self Care 03/23/2024 3:00 PM CONTINUOUS PICKLING LINE PICKLER HELPER Nurse Only Division of Nephrology and Hypertension in [place], [place] [address] [place] [address] Glen Baker M.D. [address] [place] [phone] Health Maintenance Due Date Last Done Comments [...] this topic Medical Devices Implanted Type Area Trimming Inspector Device Identifier Shelf Expiration Date Model / Serial / Lot Clp Lgc Lgt Ti Sm - [id number] Implanted:Qty : 1 on 02/05/2024 by Glen Baker M.D. at [facility] Hardware e.g. pins/screws/ rods Left: Arm Ethicon LT100 / / Clp Hrzn Ti 6 Clp [place] - [id number] Implanted:Qty : 1 on 02/05/2024 by Glen Baker M.D. at [facility] Hardware e.g. pins/screws/ rods Left: Arm [employer] [id number] / / Clp Lgc Lgt Ti Sm - [id number] Implanted:Qty : 1 on 02/05/2024 by Glen Baker M.D. at [facility] Hardware e.g. pins/screws/ rods Left: Arm Ethicon [id number] 08/16/2028 LT100 / / [id number] Misc Other Misc Other Right: Chest Wall Description:High flow dialys is catheter Procedures Procedure Name Priority Date/Time Associated Diagnosis Comments IR DIALYSIS / HIGH FLOW CATHETER EXCHANGE RAD - Routine (most inpatients and all outpatients) 02/06/2024 1:12 PM CONTINUOUS PICKLING LINE PICKLER HELPER Complication Dialysis Catheter Subsequent Chronic Failure Renal End Stage Renal Disease Dialysis Dependent (HCC) LDA ANE NON-SURGICAL AIRWAY Routine 02/05/2024 8:58 AM CONTINUOUS PICKLING LINE PICKLER HELPER CREATION FISTULA RADIOCEPHALIC ARTERIOVENOUS 02/05/2024 8:35 AM CONTINUOUS PICKLING LINE PICKLER HELPER Chronic Kidney Disease Stage 5 GFR Less Than 15 Dialysis Dependent (HCC) PROTHROMBIN TIME (PT), P STAT 02/05/2024 7:44 AM CONTINUOUS PICKLING LINE PICKLER HELPER BASIC METABOLIC PANEL, S/P STAT 02/05/2024 7:44 AM CONTINUOUS PICKLING LINE PICKLER HELPER CT CHEST WITHOUT IV CONTRAST RAD - Routine (most inpatients and all outpatients) 02/01/2024 11:07 AM CONTINUOUS PICKLING LINE PICKLER HELPER Nodule Pulmonary IR DIALYSIS / HIGH FLOW CATHETER EXCHANGE RAD - Routine (most inpatients and all outpatients) 01/21/2024 2:53 PM CONTINUOUS PICKLING LINE PICKLER HELPER Complication Dialysis Catheter Subsequent Chronic Failure Renal End Stage Renal Disease Dialysis Dependent (HCC) INTERPRETATION OF OUTSIDE CT CHEST RAD - Routine (most inpatients and all outpatients) 01/19/2024 8:57 AM CONTINUOUS PICKLING LINE PICKLER HELPER Nodule Pulmonary IR DIALYSIS / HIGH FLOW CATHETER EXCHANGE RAD - Routine (most inpatients and all outpatients) 12/26/2023 5:33 PM CONTINUOUS PICKLING LINE PICKLER HELPER Complication Dialysis Catheter Subsequent ADULT OXYGEN THERAPY Routine 12/26/2023 4:27 PM CONTINUOUS PICKLING LINE PICKLER HELPER US UPPER EXTREMITY BILATERAL DIALYSIS MAPPING RAD - Routine (most inpatients and all outpatients) 11/27/2023 9:24 AM CDT Chronic Kidney Disease Stage 5 GFR Less Than 15 Dialysis Dependent (HCC) from Last 3 Months Results * IR Dialysis / High Flow Catheter Exchange (02/06/2024 1:12 PM CONTINUOUS PICKLING LINE PICKLER HELPER) Only the most recent of3 resultswithin the time period is included. Anatomical Region Laterality Modality Body, Vascular Interventiona l RST LOS, Vascular Interventional ARZ LOS, Vascular Interventional FLA LOS N/A X-Ray Angiography Impressions 02/06/2024 1:46 PM CONTINUOUS PICKLING LINE PICKLER HELPER Exchange of a tunneled dialysis catheter, ready for use. NR Narrative 02/06/2024 1:46 PM CONTINUOUS PICKLING LINE PICKLER HELPER EXAM: IR DIALYSIS / HIGH FLOW CATHETER EXCHANGE CLINICAL HISTORY: 48-year-old female patient with recurring catheter dysfunction and subsequent exchanges. TECHNIQUE: The patient was placed supine on the fluoroscopy table. The right neck, chest, and indwelling catheter were prepared and draped in sterile fashion. Fluoroscopic brinell tester image demonstrates a tunneled dialysis catheter in [...] were prepared and draped insterile fashion. Fluoroscopic brinell tester image demonstrates a tunneled dialysiscatheter in expected [...] LDA ANE NON-SURGICAL AIRWAY (02/05/2024 8:58 AM CONTINUOUS PICKLING LINE PICKLER HELPER) Narrative Roseline Spears APRN, CRNA - 02/05/2024 8:58 AM CONTINUOUS PICKLING LINE PICKLER HELPER Roseline Spears APRN, CRNA 02/05/2024 9:10 AM [...] * Prothrombin Time (PT) (02/05/2024 7:44 AM CONTINUOUS PICKLING LINE PICKLER HELPER) Prothrombin Time, P 11.5 9.4 - 12.5 sec 02/05/2024 7:58 AM CONTINUOUS PICKLING LINE PICKLER HELPER STMA INR 1.0 0.9 - 1.1 02/05/2024 7:58 AM CONTINUOUS PICKLING LINE PICKLER HELPER STMA Comment: ----ADDITIONAL INFORMATION---- Standard intensity warfarin therapeutic range: 2.0 to 3.0 High intensity warfarin therapeutic range: 2.5 to 3.5 Blood (Blood, Venous) 02/05/2024 7:44 AM CONTINUOUS PICKLING LINE PICKLER HELPER 02/05/2024 7:50 AM CONTINUOUS PICKLING LINE PICKLER HELPER Roseline Spears POUNCING MACHINE OPERATOR, PEDIATRIC OPHTHALMOLOGIST LAB BLOOD ADD-[place] [address], [place] [address] * (ABNORMAL) Basic Metabolic Panel (02/05/2024 7:44 AM CONTINUOUS PICKLING LINE PICKLER HELPER) Potassium, P 4.7 3.6 - 5.2 mmol/L 02/05/2024 8:45 AM CONTINUOUS PICKLING LINE PICKLER HELPER DTL Sodium, P 137 135 - 145 mmol/L 02/05/2024 8:45 AM CONTINUOUS PICKLING LINE PICKLER HELPER DTL Chloride, P 100 98 - 107 mmol/L 02/05/2024 8:45 AM CONTINUOUS PICKLING LINE PICKLER HELPER DTL Bicarbonate, P 21(L) 22 - 29 mmol/L 02/05/2024 8:45 AM CONTINUOUS PICKLING LINE PICKLER HELPER DTL Anion Gap, P 16(H) 7 - 15 02/05/2024 8:45 AM CONTINUOUS PICKLING LINE PICKLER HELPER DTL BUN (Blood Urea Nitrogen), P 49(H) 6 - 21 mg/dL 02/05/2024 8:45 AM CONTINUOUS PICKLING LINE PICKLER HELPER DTL Creatinine 5.72(H) 0.59 - 1.04 mg/dL 02/05/2024 8:45 AM CONTINUOUS PICKLING LINE PICKLER HELPER DTL Estimated GFR (eGFR) <15(L) >=60 mL/min/BSA 02/05/2024 8:45 AM CONTINUOUS PICKLING LINE PICKLER HELPER DTL Comment: Estimated GFR calculated using the 2020 CKD_EPI creatinine equation. Calcium, Total, P 8.6 8.6 - 10.0 mg/dL 02/05/2024 8:45 AM CONTINUOUS PICKLING LINE PICKLER HELPER DTL Glucose, P 103 70 - 140 mg/dL 02/05/2024 8:45 AM CONTINUOUS PICKLING LINE PICKLER HELPER DTL Blood (Blood, Venous) 02/05/2024 7:44 AM CONTINUOUS PICKLING LINE PICKLER HELPER 02/05/2024 7:59 AM CONTINUOUS PICKLING LINE PICKLER HELPER us Roseline Spears POUNCING MACHINE OPERATOR, MAVIS LAB BLOOD ADD-ON Alley enriquez Result [facility] [address] [place] [address], [facility] DTL [facility] [address] [place] [address] * CT Chest without IV Contrast (02/01/2024 11:07 AM CONTINUOUS PICKLING LINE PICKLER HELPER) Anatomical Region Laterality Modality Chest, Thoracic RST LOS, Tho racic ARZ LOS, Thoracic FLA LOS N/A Computed Tomography, Compute d Tomography Impressions 02/01/2024 4:08 PM CONTINUOUS PICKLING LINE PICKLER HELPER Nearly resolved prior right upper lobe semisolid nodule, which was likely infectious/inflammatory. No concerning pulmonary nodules. Narrative 02/01/2024 4:08 PM CONTINUOUS PICKLING LINE PICKLER HELPER EXAM: CT CHEST WITHOUT IV CONTRAST COMPARISON: [...] of Outside CT Chest (01/19/2024 8:57 AM CONTINUOUS PICKLING LINE PICKLER HELPER) Anatomical Region Laterality Modality Chest, Thoracic RST LOS, Tho racic ARZ LOS, Thoracic FLA LOS, Other, Body N/A Computed Tomography Impressions 01/20/2024 9:48 AM CONTINUOUS PICKLING LINE PICKLER HELPER A couple of small pulmonary nodules are present. These may be infectious/inflammatory, but are technically indeterminate. Consider a short interval (3 month) follow-up chest CT in further evaluation. Narrative 01/20/2024 9:48 AM CONTINUOUS PICKLING LINE PICKLER HELPER EXAM: INTERPRETATION OF OUTSIDE CT CHEST without [...] Final Result from Last 3 Months Insurance [facility] [place] Advance Directives For more information, please contact: [phone] * Full Code (Latest Code Status on [...] Due to: Not medically appropriate Care Teams Glass Technician/Installer Relationship Specialty Start Date End Date None Reported, Pcp PCP - General Family Medicine 03/10/23
--- OUTSIDE RECORDS SUMMARY | 2024-02-21 00:28 | XMS_ITS | Referral Summary ---
Author Organization [facility] Address [address] [place] [id number] Care Team Providers Care Pad Machine Feeder Name Role Phone None Reported, Pcp Primary Care Provider Unavail able Source Comments Patient records contain information from all sites at [facility]. For routine questions regarding patient records, call [phone] during business hours, M-F 8:00 AM - 5:00 PM Central Time. Record requests for emergency care only can be directed to [phone] at any time.[facility] Encounters Date Type Department Care Team Description 02/18/2024 Orders Only Division of Nephrology and Hypertension, [facility], in [place], [place] [address] [place] [address] Nicholas Tracey APRN, C.N.P., M.S.N. 02/13/2024 Orders Only Division of Nephrology and Hypertension in [place], [place] [address] [place] [address] Yennifer Valderrama M.S.N., R.N. 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 Complication Dialysis Catheter Subsequent; Chronic Failure Renal End Stage Renal Disease Dialysis Dependent (HCC) Discharge Disposition: Home or Self Care 02/06/2024 Documentation Division of Nephrology and Hypertension, [facility], in [place], [place] [address] [place] [phone] Nicholas Tracey APRN, C.NNanette., M.S.N. 02/06/2024 Orders Only Division of Nephrology and Hypertension, [facility], in [place], [place] [address] [place] [phone] Nicholas Tracey APRN, C.NNanette., M.S.N. Complication Dialysis Catheter Subsequent (Primary Dx); Chronic Failure Renal End Stage Renal Disease Dialysis Dependent (HCC) 02/05/2024 8:50 AM DESIGN EDITOR Anesthesia Event [facility] OR [address] [place] [phone] Tao Bello M.D. 02/05/2024 7:45 AM DESIGN EDITOR - 02/05/2024 11:03 AM DESIGN EDITOR Surgery [facility] OR [address] [place] [phone] Glen Baker M.D. CREATION FISTULA RADIOCEPHALIC ARTERIOVENOUS 02/05/2024 5:41 AM DESIGN EDITOR - 02/05/2024 3:22 PM DESIGN EDITOR Hospital Encounter [facility] [address] [place] [phone] Glen Baker M.D. Discharge Disposition: Home or Self Care 02/01/2024 10:38 AM DESIGN EDITOR - 02/01/2024 11:59 PM DESIGN EDITOR Hospital Encounter Department of Radiology, [facility] in [place], [place] [address] [place] [phone] Jo Root M.D., Ph.D. Nodule Pulmonary Discharge Disposition: Home or Self Care 01/30/2024 Clinical Communication Division of Nephrology and Hypertension in [place], [place] [address] [place] [phone] Jo Root M.D., Ph.D. 01/22/2024 1:00 PM DESIGN EDITOR Internal E-Consult Department of Cardiovascular Medicine in [place], [place] [address] [place] [phone] Samuel Love M.B., Ch.B., Dulce. Patent Foramen Ovale (HCC) 01/21/2024 Orders Only Division of Nephrology and Hypertension in [place], [place] [address] [place] [phone] Jo Root M.D., Ph.D. Nodule Pulmonary (Primary Dx) 01/21/2024 10:05 AM DESIGN EDITOR - 01/21/2024 3:35 PM DESIGN EDITOR Hospital Encounter Department of Radiology in [place], [place] [address] [place] [phone] Nicholas Tracey APRN C.N.P., M.S.N. Antony Liz M.D. Complication Dialysis Catheter Subsequent; Chronic Failure Renal End Stage Renal Disease Dialysis Dependent (HCC) Discharge Disposition: Home or Self Care 01/21/2024 Documentation Division of Nephrology and Hypertension, [facility], in [place], [place] [address] [place] [phone] Nicholas Tracey APRN C.N.P., M.S.N. 01/21/2024 Orders Only Division of Nephrology and Hypertension, [facility], in [place], [place] [address] [place] [phone] Nicholas Tracey APRN C.N.P., M.S.N. Complication Dialysis Catheter Subsequent (Primary Dx); Chronic Failure Renal End Stage Renal Disease Dialysis Dependent (HCC) 01/19/2024 8:55 AM DESIGN EDITOR Ancillary Procedure Department of Radiology in [place], [place] [address] [place] [phone] Aleks Velasquez Jr., M.D. Nodule Pulmonary 01/19/2024 8:00 AM DESIGN EDITOR Internal E-Consult Division of Pulmonary Medicine in [place], [place] [address] [place] [phone] Aleks Velasquez Jr., M.D. Nodule Pulmonary 12/26/2023 4:18 PM DESIGN EDITOR - 12/26/2023 6:50 PM DESIGN EDITOR Hospital Encounter Department of Radiology in [place], [place] [address] [place] [address] Nicholas Tracey APRN, C.NGenesis, M.S.N. Ascencion Rodrigues M.D. Complication Dialysis Catheter Subsequent Discharge Disposition: Home or Self Care 12/26/2023 Documentation Division of Nephrology and Hypertension, [facility], in [place], [place] [address] [place] [address] Nicholas Tracey APRN, C.N.P., M.S.N. 12/26/2023 Orders Only Division of Nephrology and Hypertension, [facility], in [place], [place] [address] [place] [address] Nicholas Tracey APRN, C.NNanette., M.S.N. Complication Dialysis Catheter Subsequent (Primary Dx); Chronic Failure Renal End Stage Renal Disease Dialysis Dependent (HCC) 12/24/2023 Orders Only Division of Nephrology and Hypertension, [facility], in [place], [place] [address] [place] [address] Nicholas Tracey APRN, C.N.Isabelle., M.S.N. 12/23/2023 Orders Only [facility]dy [facility] in [place], [place] [address] [place] [address] Linnette Marti R.N., C.C.T.C. Morbid Obesity Body Mass Index 40.0-44.9 Adult (HCC) (Primary Dx) 12/23/2023 Clinical Communication [facility] [place], [place] [address] [place] [phone] Linnette Marti R.N., C.C.T.C. Appointment (KTE Surgical Visit) 12/23/2023 10:00 AM DESIGN EDITOR Clinical Communication Freddy Berlin martin [facility] in [place], [place] [address] [place] [phone] Shahid Edge M.D. Heyer, Danielle R, R.N., C.C.T.C. Weight Loss (Initial Nurse Consult) 12/22/2023 Orders Only Division of Nephrology and Hypertension, [facility], in [place], [place] [address] [place] [address] Nicholas Tracey APRN C.N.P., M.S.N. 12/20/2023 Orders Only Division of Nephrology and Hypertension, [facility], in [place], [place] [address] [place] [address] Nicholas Tracey APRN C.N.P., M.S.N. 12/19/2023 Documentation Division of Nephrology and Hypertension, [facility], in [place], [place] [address] [place] [address] Nichoals Tracey APRN C.N.P., M.S.N. 12/19/2023 Orders Only Division of Nephrology and Hypertension, [facility], in [place], [place] [address] [place] [address] Nicholas Tracey APRN C.N.P., M.S.N. Complication Dialysis Catheter Subsequent (Primary Dx); Chronic Failure Renal End Stage Renal Disease Dialysis Dependent (HCC) 12/18/2023 Clinical Communication [facility] in [place], [place] [address] [place] [address] Nataliia Jackson M, R.N. 12/16/2023 Clinical Communication Division of Nephrology and Hypertension in [place], [place] [address] [place] [address] Jo Root M.D., Ph.D. Phone Contact 12/15/2023 Documentation Division of Nephrology and Hypertension in [place], [place] [address] [place] [phone] Rosanna Serrato, R.N. 12/15/2023 Orders Only [facility] in [place], [place] [address] [place] [address] Linnette Marti R.N., C.C.T.C. Morbid Obesity Body Mass Index 40.0-44.9 Adult (HCC) (Primary Dx) 12/11/2023 Orders Only [facility] in [place], [place] [address] [place] [address] Nataliia Jackson R.N. Chronic Kidney Disease Stage 5 GFR Less Than 15 Dialysis Dependent (HCC) (Primary Dx); Hemodialysis Status (HCC); Glomerulonephritis Immunoglobulin A (IgA Nephropathy); Hypertension Essential Primary; Nodule Pulmonary 12/11/2023 9:00 AM CDT Clinical Communication [facility] in [place], [place] [address] [place] [address] Nataliia Jackson R.N. Txp Initial RN Phone Interview 12/09/2023 Clinical Communication Division of Nephrology and Hypertension in [place], [place] [address] [place] [address] Jo Root M.D., Ph.D. 12/09/2023 Orders Only Division of Nephrology and Hypertension in [place], [place] [address] [place] [address] Jo Root M.D., Ph.D. Patent Foramen Ovale (HCC) (Primary Dx) 12/09/2023 Orders Only Division of Nephrology and Hypertension in [place], [place] [address] [place] [address] Jo Root M.D., Ph.D. Nodule Pulmonary (Primary Dx) 12/01/2023 Patient Outreach Section of Infectious Diseases in [place], [place] [address] [place] [address] Anny Nazario RJanieN. 12/01/2023 Documentation Division of Nephrology and Hypertension in [place], [place] [address] [place] [address] Carrington Perrin Jr., D.O. 11/27/2023 1:00 PM CDT Comprehensive Visit Division of Vascular and Endovascular Surgery in [place], [place] [address] [place] [address] Jo Root M.D., Ph.D. Glen Baker M.D. Chronic Kidney Disease Stage 5 GFR Less Than 15 Dialysis Dependent (HCC) 11/27/2023 10:30 AM CDT Nurse Only Division of Nephrology and Hypertension in [place], [place] [address] [place] [address] Jo Root M.D., Ph.D. Rosanna Serrato RJanis. 11/27/2023 8:18 AM CDT - 11/27/2023 11:59 PM CDT Hospital Encounter Department of Radiology, [facility], in [place], [place] [address] [place] [address] Jo Root M.D., Ph.D. Chronic Kidney Disease Stage 5 GFR Less Than 15 Dialysis Dependent (HCC) Discharge Disposition: Home or Self Care 11/25/2023 Patient Outreach Section of Infectious Diseases in [place], [place] [address] [place] [address] Antonia Roblero R.N. OPAT (Lab Entry) from [...] = 0.6 oz pur e alcohol) [facility] Utilities Answer Date Recorded In the [...] living situation today? I [facility] a [facility] to live 11/07/2023 Comments No Sex and Gender Information Value Date Recorded Sex Assigned at Female 03/13/2023 1:38 PM DESIGN EDITOR Legal Sex Female 10:08 PM DESIGN EDITOR Gender Identity Female 03/13/2023 1:42 PM DESIGN EDITOR Sexual Orientation Straight 03/13/2023 1: 42 PM DESIGN EDITOR Last Filed Vital Signs Vital Sign Reading Time Taken Comments Blood Pressure 127/79 02/06/2024 2:00 PM DESIGN EDITOR Pulse 77 02/06/2024 2:00 PM DESIGN EDITOR Temperature 36.4 C (97.5 F) 02/06/2024 1:37 PM DESIGN EDITOR Respiratory Rate 14 02/06/2024 2:00 PM DESIGN EDITOR Oxygen Saturation 98% 02/06/2024 2:00 PM DESIGN EDITOR Inhaled Oxygen Concentration - - Weight 109 kg (241 lb 1.2 oz) 02/06/2024 12:03 P M DESIGN EDITOR Height 165.1 cm (5' 5) 02/05/2024 6:35 AM DESIGN EDITOR Body Mass Index 40.12 02/05/2024 6:35 AM DESIGN EDITOR Plan of Treatment Upcoming Encounters Date Type Department Care Team (Latest Contact Info) Description 03/02/2024 10:00 AM DESIGN EDITOR Telemedicine Department of Patient Education in [address] [address] Sheree Franz M.D. [address] [place] [phone] 03/05/2024 11:30 AM DESIGN EDITOR Clinical Communication Virtual Review in [place], [place] [address] [place] [address] 03/09/2024 6:40 AM DESIGN EDITOR Lab Department of Laboratory Medicine and Pathology, [facility] in [address] [address] Sheree Franz M.D. [address] [place] [phone] 03/09/2024 6:50 AM DESIGN EDITOR Lab Department of Laboratory Medicine and Pathology, [facility] in [place], [place] [address] [place] [phone] Sheree Franz M.D. [address] [place] [phone] 03/09/2024 7:20 AM DESIGN EDITOR Ancillary Procedure Department of Cardiovascular Medicine in [place], [place] [address] [place] [address] Sheree Franz M.D. [address] [place] [phone] 03/09/2024 9:00 AM DESIGN EDITOR Comprehensive Visit Division of Endocrinology in [place], [place] [address] [place] [address] Jo Farris M.D. [address] [place] [phone] 03/09/2024 10:30 AM DESIGN EDITOR Comprehensive Visit Freddy martin [facility] in [place], [place] [address] [place] [phone] Idalia Hand M.D. [address] [place] [phone] 03/09/2024 12:00 PM DESIGN EDITOR Appointment Department of Radiology, [facility], in [place], [place] [address] [place] [address] Sheree Franz M.D. [address] [place] [phone] 03/09/2024 2:00 PM DESIGN EDITOR Virtual Visit Freddy martin [facility] in [place], [place] [address] [place] [phone] Sheree Franz M.D. [address] [place] [phone] 03/09/2024 3:20 PM DESIGN EDITOR Appointment Department of Cardiovascular Diseases in [place], [place] [address] [place] [address] Sheree Franz M.D. [address] [place] [phone] 03/10/2024 9:00 AM DESIGN EDITOR Comprehensive Visit Freddy Slade [facility] in [place], [place] [address] [place] [address] Shahid Edge M.D. [address] [place] [phone] 03/10/2024 1:30 PM DESIGN EDITOR Appointment Division of Nephrology and Hypertension, [facility], in [place], [place] [address] [place] [address] Nicholas Tracey, MAGY, C.N.P., M.S.N. [address] [place] [phone] 03/11/2024 8:00 AM DESIGN EDITOR Clinical Support [facility] in [place], [place] [address] [place] [address] Sheree Franz M.D. [address] [place] [phone] Alyse Chang, IbisS.Kayla., L.I.C.S.W. [address] [place] [phone] 03/11/2024 10:00 AM DESIGN EDITOR [facility] in [place], [place] [address] [place] [address] Sheree Franz M.D. [address] [place] [address] 03/11/2024 11:00 AM DESIGN EDITOR [facility] in [place], [place] [address] [place] [address] Sheree Franz M.D. [address] [place] [phone] 03/11/2024 1:00 PM DESIGN EDITOR Nurse Only [facility] in [place], [place] [address] [place] [address] Sheree Franz M.D. [address] [place] [phone] 03/11/2024 4:00 PM DESIGN EDITOR Office Visit [facility] in [place], [place] [address] [place] [address] Idalia Hand M.D. [address] [place] [phone] 03/23/2024 1:30 PM DESIGN EDITOR Appointment Department of Radiology, [facility], in [place], [place] [address] [place] [address] Glen Baker M.D. [address] [place] [phone] Discharge Disposition: Home or Self Care 03/23/2024 3:00 PM DESIGN EDITOR Nurse Only Division of Nephrology and Hypertension in [place], [place] [address] [place] [address] Glen Baker M.D. [address] [place] [phone] Medical Devices Implanted Type Area Undraped Artist Model Device Identifier Shelf Expiration Date Model / Serial / Lot Clp [facility] Lgt Ti Sm - [id number] Implanted:Qty : 1 on 02/05/2024 by Glen Baker M.D. at [facility] Hardware e.g. pins/screws/ rods Left: Arm Ethicon LT100 / / Clp Hrzn Ti 6 Clp [place] - [id number] Implanted:Qty : 1 on 02/05/2024 by Glen Baker M.D. at [facility] Hardware e.g. pins/screws/ rods Left: Arm [employer] [id number] / / Clp [facility] Ti Sm - [id number] Implanted:Qty : 1 on 02/05/2024 by Glen Baker M.D. at [facility] Hardware e.g. pins/screws/ rods Left: Arm Ethicon [id number] 08/16/2028 LT100 / / [id number] Misc Other Misc Other Right: Chest Wall Description:High flow dialys is catheter Procedures Procedure Name Priority Date/Time Associated Diagnosis Comments IR DIALYSIS / HIGH FLOW CATHETER EXCHANGE RAD - Routine (most inpatients and all outpatients) 02/06/2024 1:12 PM DESIGN EDITOR Complication Dialysis Catheter Subsequent Chronic Failure Renal End Stage Renal Disease Dialysis Dependent (HCC) LDA ANE NON-SURGICAL AIRWAY Routine 02/05/2024 8:58 AM DESIGN EDITOR CREATION FISTULA RADIOCEPHALIC ARTERIOVENOUS 02/05/2024 8:35 AM DESIGN EDITOR Chronic Kidney Disease Stage 5 GFR Less Than 15 Dialysis Dependent (HCC) PROTHROMBIN TIME (PT), P STAT 02/05/2024 7:44 AM DESIGN EDITOR BASIC METABOLIC PANEL, S/P STAT 02/05/2024 7:[address] CHEST WITHOUT IV CONTRAST RAD - Routine (most inpatients and all outpatients) 02/01/2024 11:07 AM DESIGN EDITOR Nodule Pulmonary IR DIALYSIS / HIGH FLOW CATHETER EXCHANGE RAD - Routine (most inpatients and all outpatients) 01/21/2024 2:53 PM DESIGN EDITOR Complication Dialysis Catheter Subsequent Chronic Failure Renal End Stage Renal Disease Dialysis Dependent (HCC) INTERPRETATION OF OUTSIDE CT CHEST RAD - Routine (most inpatients and all outpatients) 01/19/2024 8:57 AM DESIGN EDITOR Nodule Pulmonary IR DIALYSIS / HIGH FLOW CATHETER EXCHANGE RAD - Routine (most inpatients and all outpatients) 12/26/2023 5:33 PM DESIGN EDITOR Complication Dialysis Catheter Subsequent ADULT OXYGEN THERAPY Routine 12/26/2023 4:27 PM DESIGN EDITOR US UPPER EXTREMITY BILATERAL DIALYSIS MAPPING RAD - Routine (most inpatients and all outpatients) 11/27/2023 9:24 AM CDT Chronic Kidney Disease Stage 5 GFR Less Than 15 Dialysis Dependent (HCC) from Last 3 Months Results * IR Dialysis / High Flow Catheter Exchange (02/06/2024 1:12 PM DESIGN EDITOR) Only the most recent of3 resultswithin the time period is included. Anatomical Region Laterality Modality Body, Vascular Interventiona l RST LOS, Vascular Interventional ARZ LOS, Vascular Interventional FLA LOS N/A X-Ray Angiography Impressions 02/06/2024 1:46 PM DESIGN EDITOR Exchange of a tunneled dialysis catheter, ready for use. NR Narrative 02/06/2024 1:46 PM DESIGN EDITOR EXAM: IR DIALYSIS / HIGH FLOW CATHETER EXCHANGE CLINICAL HISTORY: 48-year-old female patient with recurring catheter dysfunction and subsequent exchanges. TECHNIQUE: The patient was placed supine on the fluoroscopy table. The right neck, chest, and indwelling catheter were prepared and draped in sterile fashion. Fluoroscopic purchasing administrator image demonstrates a tunneled dialysis catheter in [...] were prepared and draped insterile fashion. Fluoroscopic purchasing administrator image demonstrates a tunneled dialysiscatheter in expected [...] LDA ANE NON-SURGICAL AIRWAY (02/05/2024 8:58 AM DESIGN EDITOR) Narrative Roseline Spears APRN, CRNA - 02/05/2024 8:58 AM DESIGN EDITOR Roseline Spears APRN, CRNA 02/05/2024 9:10 AM [...] * Prothrombin Time (PT) (02/05/2024 7:44 AM DESIGN EDITOR) Prothrombin Time, P 11.5 9.4 - 12.5 sec 02/05/2024 7:58 AM DESIGN EDITOR STMA INR 1.0 0.9 - 1.1 02/05/2024 7:58 AM DESIGN EDITOR STMA Comment: ----ADDITIONAL INFORMATION---- Standard intensity warfarin therapeutic range: 2.0 to 3.0 High intensity warfarin therapeutic range: 2.5 to 3.5 Blood (Blood, Venous) 02/05/2024 7:44 AM DESIGN EDITOR 02/05/2024 7:50 AM DESIGN EDITOR Roseline Spears HYDRAULIC STRAINER OPERATOR, TRAVEL PT LAB BLOOD ADD-ON Alley l Result [facility] [address] [place] [address], [facility] [address] [place] [address] * (ABNORMAL) Basic Metabolic Panel (02/05/2024 7:44 AM DESIGN EDITOR) Potassium, P 4.7 3.6 - 5.2 mmol/L 02/05/2024 8:45 AM DESIGN EDITOR DTL Sodium, P 137 135 - 145 mmol/L 02/05/2024 8:45 AM DESIGN EDITOR DTL Chloride, P 100 98 - 107 mmol/L 02/05/2024 8:45 AM DESIGN EDITOR DTL Bicarbonate, P 21(L) 22 - 29 mmol/L 02/05/2024 8:45 AM DESIGN EDITOR DTL Anion Gap, P 16(H) 7 - 15 02/05/2024 8:45 AM DESIGN EDITOR DTL BUN (Blood Urea Nitrogen), P 49(H) 6 - 21 mg/dL 02/05/2024 8:45 AM DESIGN EDITOR DTL Creatinine 5.72(H) 0.59 - 1.04 mg/dL 02/05/2024 8:45 AM DESIGN EDITOR DTL Estimated GFR (eGFR) <15(L) >=60 mL/min/BSA 02/05/2024 8:45 AM DESIGN EDITOR DTL Comment: Estimated GFR calculated using the 2020 CKD_EPI creatinine equation. Calcium, Total, P 8.6 8.6 - 10.0 mg/dL 02/05/2024 8:45 AM DESIGN EDITOR DTL Glucose, P 103 70 - 140 mg/dL 02/05/2024 8:45 AM DESIGN EDITOR DTL Blood (Blood, Venous) 02/05/2024 7:44 AM DESIGN EDITOR 02/05/2024 7:59 AM DESIGN EDITOR us Roseline Spears HYDRAULIC STRAINER OPERATOR, TRAVEL PT LAB BLOOD ADD-ON Alley l Result [facility] [address] [place] [address], [facility] [address] [place] [address] * CT Chest without IV Contrast (02/01/2024 11:07 AM DESIGN EDITOR) Anatomical Region Laterality Modality Chest, Thoracic RST LOS, Tho racic ARZ LOS, Thoracic FLA LOS N/A Computed Tomography, Compute d Tomography Impressions 02/01/2024 4:08 PM DESIGN EDITOR Nearly resolved prior right upper lobe semisolid nodule, which was likely infectious/inflammatory. No concerning pulmonary nodules. Narrative 02/01/2024 4:08 PM DESIGN EDITOR EXAM: CT CHEST WITHOUT IV CONTRAST COMPARISON: [...] of Outside CT Chest (01/19/2024 8:57 AM DESIGN EDITOR) Anatomical Region Laterality Modality Chest, Thoracic RST LOS, Tho racic ARZ LOS, Thoracic FLA LOS, Other, Body N/A Computed Tomography Impressions 01/20/2024 9:48 AM DESIGN EDITOR A couple of small pulmonary nodules are present. These may be infectious/inflammatory, but are technically indeterminate. Consider a short interval (3 month) follow-up chest CT in further evaluation. Narrative 01/20/2024 9:48 AM DESIGN EDITOR EXAM: INTERPRETATION OF OUTSIDE CT CHEST without [...] = not examined Jo Berg M.D., Ph.D. [facility] PROC[facility] RES Final Result from Last 3 Months Insurance [employer] Advance Directives For more information, please contact: [phone] * Full Code (Latest Code Status on [...] Due to: Not medically appropriate Care Teams Pad Machine Feeder Relationship Specialty Start Date End Date None Reported, Pcp PCP - General Family Medicine 03/10/23
--- OUTSIDE RECORDS SUMMARY | 2024-02-21 00:28 | XMS_ITS | Encounter Summary ---
Author Organization [facility] Address [address] [place] [address] Care Team Providers Care Bowling Ball Engraver Name Role Phone None Reported, Pcp Primary Care Provider Unavail able Encounter Details Date Type Department Care Team (Late st Contact Info) Description 02/18/2024 Orders Only Division of Nephrology and Hypertension, [facility], in [place], [place] [address] [place] [phone] Nicholas Tracey P, MAGY, C.N.P., M.S.N. [address] [place] [phone] Social History Tobacco Use Types Packs/Day Years Used Date Smoking Tobacco: Never Smokeless Tobacco: Never Alcohol Use Standard Drinks/Week Comments Never 0 (1 standard drink = 0.6 oz pur e alcohol) [facility] Utilities Answer Date Recorded In the past 12 months has [employer], gas, oil, or water [employer] threatened to shut off services in your [...] living situation today? I have a [facility] place to live 11/07/2023 Comments No Sex and Gender Information Value Date Recorded Sex Assigned at Female 03/13/2023 1:38 PM PROFESSIONAL ATHLETES COACH Legal Sex Female 10:08 PM PROFESSIONAL ATHLETES COACH Gender Identity Female 03/13/2023 1:42 PM PROFESSIONAL ATHLETES COACH Sexual Orientation Straight 03/13/2023 1: 42 PM PROFESSIONAL ATHLETES COACH documented as of this encounter Plan of Treatment Upcoming Encounters Date Type Department Care Team (Latest Contact Info) Description 03/02/2024 10:00 AM PROFESSIONAL ATHLETES COACH Telemedicine Department of Patient Education in [place], [place] [address] [place] [phone] Sheree Franz M.D. [address] [place] [phone] 03/05/2024 11:30 AM PROFESSIONAL ATHLETES COACH Clinical Communication Virtual Review in [place], [place] 200 [place] [address] 03/09/2024 6:40 AM PROFESSIONAL ATHLETES COACH Lab Department of Laboratory Medicine and Pathology, [facility] in [place], [place] [address] [place] [phone] Sheree Franz M.D. [address] [place] [phone] 03/09/2024 6:50 AM PROFESSIONAL ATHLETES COACH Lab Department of Laboratory Medicine and Pathology, [facility] in [place], [place] [address] [place] [phone] Sheree Franz M.D. [address] [place] [phone] 03/09/2024 7:20 AM PROFESSIONAL ATHLETES COACH Ancillary Procedure Department of Cardiovascular Medicine in [place], [place] [address] [place] [phone] Sheree Franz M.D. [address] [place] [phone] 03/09/2024 9:00 AM PROFESSIONAL ATHLETES COACH Comprehensive Visit Division of Endocrinology in [place], [place] [address] [place] [phone] Jo Farris M.D. [address] [place] [phone] 03/09/2024 10:30 AM PROFESSIONAL ATHLETES COACH [facility] [place], [place] [address] [place] [phone] Idalia Hand M.D. [address] [place] [phone] 03/09/2024 12:00 PM PROFESSIONAL ATHLETES COACH Appointment Department of Radiology, [facility], in [place], [place] [address] [place] [address] Sheree Franz M.D. [address] [place] [phone] 03/09/2024 2:00 PM PROFESSIONAL ATHLETES COACH Virtual Visit Freddy Diaz [facility] in [place], [place] [address] [place] [address] Sheree Franz M.D. [address] [place] [phone] 03/09/2024 3:20 PM PROFESSIONAL ATHLETES COACH Appointment Department of Cardiovascular Diseases in [place], [place] [address] [place] [phone] Sheree Franz M.D. [address] [place] [phone] 03/10/2024 9:00 AM PROFESSIONAL ATHLETES COACH Comprehensive Visit Freddy Diaz [facility] in [place], [place] [address] [place] [address] Shahid Edge M.D. [address] [place] [phone] 03/10/2024 1:30 PM PROFESSIONAL ATHLETES COACH Appointment Division of Nephrology and Hypertension, [facility], in [place], [place] [address] [place] [address] Nicholas Tracey, ELECTROLOG OPERATOR, C.N.P., M.S.N. [address] [place] [address] 03/11/2024 8:00 AM PROFESSIONAL ATHLETES COACH Clinical Support Freddy martin [facility] in [place], [place] [address] [place] [address] Sheree Franz M.D. [address] [place] [phone] Alyse Chang M.S.W., L.IJanieC.S.W. [address] [place] [address] 03/11/2024 10:00 AM PROFESSIONAL ATHLETES COACH Office Visit Freddy martin [facility] Trans[facility] in [place], [place] [address] [place] [address] Sheree Franz M.D. [address] [place] [phone] 03/11/2024 11:00 AM PROFESSIONAL ATHLETES COACH Comprehensive Visit Freddy martin [facility] Trans[facility] in [place], [place] [address] [place] [address] Sheree Franz M.D. [address] [place] [phone] 03/11/2024 1:00 PM PROFESSIONAL ATHLETES COACH Nurse Only Freddy Slade [facility] Transplantation [facility] Clinical Reg[facility] in [place], [place] [address] [place] [address] Sheree Franz M.D. [address] [place] [phone] 03/11/2024 4:00 PM PROFESSIONAL ATHLETES COACH Office Visit Freddy Slade [facility] Transplantation [facility] Clinical Regeneration in [place], [place] [address] [place] [address] Idalia Hand M.D. [address] [place] [address] 03/23/2024 1:30 PM PROFESSIONAL ATHLETES COACH Appointment Department of Radiology, [facility], in [place], [place] [address] [place] [address] Glen Baker M.D. [address] [place] [phone] Discharge Disposition: Home or Self Care 03/23/2024 3:00 PM PROFESSIONAL ATHLETES COACH Nurse Only Division of Nephrology and Hypertension in [place], [place] [address] [place] [phone] Glen Baker M.D. [address] [place] [phone] documented as of this encounter Visit Diagnoses Not on filedocumented in this encounter Care Teams Bowling Ball Engraver Relationship Specialty Start Date End Date None Reported, Pcp PCP - General Family Medicine 03/10/23 documented as of this encounter
--- OUTSIDE RECORDS SUMMARY | 2024-02-21 00:28 | XMS_ITS ---
Author Organization [facility] Address [address] [place] [address] Care Team Providers Care University Registrar Name Role Phone None Reported, Pcp Primary Care Provider Unavail able Procedures Procedure Name Priority Date/Time Associated Diagnosis Comments IR DIALYSIS / HIGH FLOW CATHETER EXCHANGE RAD - Routine (most inpatients and all outpatients) 02/06/2024 1:12 PM COMBER SETTER Complication Dialysis Catheter Subsequent Chronic Failure Renal End Stage Renal Disease Dialysis Dependent (HCC) LDA ANE NON-SURGICAL AIRWAY Routine 02/05/2024 8:58 AM COMBER SETTER CREATION FISTULA RADIOCEPHALIC ARTERIOVENOUS 02/05/2024 8:35 AM COMBER SETTER Chronic Kidney Disease Stage 5 GFR Less Than 15 Dialysis Dependent (HCC) PROTHROMBIN TIME (PT), P STAT 02/05/2024 7:44 AM COMBER SETTER BASIC METABOLIC PANEL, S/P STAT 02/05/2024 7:[address] CHEST WITHOUT IV CONTRAST RAD - Routine (most inpatients and all outpatients) 02/01/2024 11:07 AM COMBER SETTER Nodule Pulmonary IR DIALYSIS / HIGH FLOW CATHETER EXCHANGE RAD - Routine (most inpatients and all outpatients) 01/21/2024 2:53 PM COMBER SETTER Complication Dialysis Catheter Subsequent Chronic Failure Renal End Stage Renal Disease Dialysis Dependent (HCC) INTERPRETATION OF OUTSIDE CT CHEST RAD - Routine (most inpatients and all outpatients) 01/19/2024 8:57 AM COMBER SETTER Nodule Pulmonary IR DIALYSIS / HIGH FLOW CATHETER EXCHANGE RAD - Routine (most inpatients and all outpatients) 12/26/2023 5:33 PM COMBER SETTER Complication Dialysis Catheter Subsequent ADULT OXYGEN THERAPY Routine 12/26/2023 4:27 PM COMBER SETTER US UPPER EXTREMITY BILATERAL DIALYSIS MAPPING RAD [...] drink = 0.6 oz pur e alcohol) [facility] Utilities Answer Date Recorded In the past 12 months has e [employer], gas, oil, or water [employer] threatened to shut off services in your [...] living situation today? I have a [facility] place to live 11/07/2023 Comments No Sex and Gender Information Value Date Recorded Sex Assigned at Female 03/13/2023 1:38 PM COMBER SETTER Legal Sex Female 10:08 PM COMBER SETTER Gender Identity Female 03/13/2023 1:42 PM COMBER SETTER Sexual Orientation Straight 03/13/2023 1: 42 PM COMBER SETTER Last Filed Vital Signs Vital Sign Reading Time Taken Comments Blood Pressure 127/79 02/06/2024 2:00 PM COMBER SETTER Pulse 77 02/06/2024 2:00 PM COMBER SETTER Temperature 36.4 C (97.5 F) 02/06/2024 1:37 PM COMBER SETTER Respiratory Rate 14 02/06/2024 2:00 PM COMBER SETTER Oxygen Saturation 98% 02/06/2024 2:00 PM COMBER SETTER Inhaled Oxygen Concentration - - Weight 109 kg (241 lb 1.2 oz) 02/06/2024 12:03 P M COMBER SETTER Height 165.1 cm (5' 5) 02/05/2024 6:35 AM COMBER SETTER Body Mass Index 40.12 02/05/2024 6:35 AM COMBER SETTER Results * IR Dialysis / High Flow Catheter Exchange (02/06/2024 1:12 PM COMBER SETTER) Only the most recent of3 resultswithin the time period is included. Anatomical Region Laterality Modality Body, Vascular Interventiona l RST LOS, Vascular Interventional ARZ LOS, Vascular Interventional FLA LOS N/A X-Ray Angiography Impressions 02/06/2024 1:46 PM COMBER SETTER Exchange of a tunneled dialysis catheter, ready for use. NR Narrative 02/06/2024 1:46 PM COMBER SETTER EXAM: IR DIALYSIS / HIGH FLOW CATHETER EXCHANGE CLINICAL HISTORY: 48-year-old female patient with recurring catheter dysfunction and subsequent exchanges. TECHNIQUE: The patient was placed supine on the fluoroscopy table. The right neck, chest, and indwelling catheter were prepared and draped in sterile fashion. Fluoroscopic it compliance manager image demonstrates a tunneled dialysis catheter in [...] were prepared and draped insterile fashion. Fluoroscopic it compliance manager image demonstrates a tunneled dialysiscatheter in expected [...] LDA ANE NON-SURGICAL AIRWAY (02/05/2024 8:58 AM COMBER SETTER) Narrative Roseline Spears APRN, CRNA - 02/05/2024 8:58 AM COMBER SETTER Roseline Spears APRN, CRNA 02/05/2024 9:10 AM [...] * Prothrombin Time (PT) (02/05/2024 7:44 AM COMBER SETTER) Prothrombin Time, P 11.5 9.4 - 12.5 sec 02/05/2024 7:58 AM COMBER SETTER STMA INR 1.0 0.9 - 1.1 02/05/2024 7:58 AM COMBER SETTER STMA Comment: ----ADDITIONAL INFORMATION---- Standard intensity warfarin therapeutic range: 2.0 to 3.0 High intensity warfarin therapeutic range: 2.5 to 3.5 Blood (Blood, Venous) 02/05/2024 7:44 AM COMBER SETTER 02/05/2024 7:50 AM COMBER SETTER us Roseline Spears FISH CULTURIST, DEPUTY BUILDING GUARD LAB BLOOD ADD-ON Alley l Result [facility] [place] [address] [place] [address], [facility] [address] [place] [address] * (ABNORMAL) Basic Metabolic Panel (02/05/2024 7:44 AM COMBER SETTER) Potassium, P 4.7 3.6 - 5.2 mmol/L 02/05/2024 8:45 AM COMBER SETTER DTL Sodium, P 137 135 - 145 mmol/L 02/05/2024 8:45 AM COMBER SETTER DTL Chloride, P 100 98 - 107 mmol/L 02/05/2024 8:45 AM COMBER SETTER DTL Bicarbonate, P 21(L) 22 - 29 mmol/L 02/05/2024 8:45 AM COMBER SETTER DTL Anion Gap, P 16(H) 7 - 15 02/05/2024 8:45 AM COMBER SETTER DTL BUN (Blood Urea Nitrogen), P 49(H) 6 - 21 mg/dL 02/05/2024 8:45 AM COMBER SETTER DTL Creatinine 5.72(H) 0.59 - 1.04 mg/dL 02/05/2024 8:45 AM COMBER SETTER DTL Estimated GFR (eGFR) <15(L) >=60 mL/min/BSA 02/05/2024 8:45 AM COMBER SETTER DTL Comment: Estimated GFR calculated using the 2020 CKD_EPI creatinine equation. Calcium, Total, P 8.6 8.6 - 10.0 mg/dL 02/05/2024 8:45 AM COMBER SETTER DTL Glucose, P 103 70 - 140 mg/dL 02/05/2024 8:45 AM COMBER SETTER DTL Blood (Blood, Venous) 02/05/2024 7:44 AM COMBER SETTER 02/05/2024 7:59 AM COMBER SETTER us Roseline Guerra Regan FISH CULTURIST, DEPUTY BUILDING GUARD LAB BLOOD ADD-ON Alley l Result [facility] [place] [address] [place] [address], [facility] DTL [facility] [address] [place] [address] * CT Chest without IV Contrast (02/01/2024 11:07 AM COMBER SETTER) Anatomical Region Laterality Modality Chest, Thoracic RST LOS, Tho racic ARZ LOS, Thoracic FLA LOS N/A Computed Tomography, Compute d Tomography Impressions 02/01/2024 4:08 PM COMBER SETTER Nearly resolved prior right upper lobe semisolid nodule, which was likely infectious/inflammatory. No concerning pulmonary nodules. Narrative 02/01/2024 4:08 PM COMBER SETTER EXAM: CT CHEST WITHOUT IV CONTRAST COMPARISON: [...] of Outside CT Chest (01/19/2024 8:57 AM COMBER SETTER) Anatomical Region Laterality Modality Chest, Thoracic RST LOS, Tho racic ARZ LOS, Thoracic FLA LOS, Other, Body N/A Computed Tomography Impressions 01/20/2024 9:48 AM COMBER SETTER A couple of small pulmonary nodules are present. These may be infectious/inflammatory, but are technically indeterminate. Consider a short interval (3 month) follow-up chest CT in further evaluation. Narrative 01/20/2024 9:48 AM COMBER SETTER EXAM: INTERPRETATION OF OUTSIDE CT CHEST without [...]
--- OUTSIDE RECORDS SUMMARY | 2024-02-21 00:28 | XMS_ITS | Clinical Summary ---
Author Organization 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 Not on file Not on [...] 36.8 C (98.2 F) 03/25/2017 8:14 AM HOOP PUNCH OPERATOR HELPER Respiratory Rate - - Oxygen Saturation 97% [...] Routine 07/29/2018 8:31 AM CDT Lipid screening INSTRUCTIONAL TECHNOLOGY TEACHER THIN PREP PAP SCREEN IMAGED Routine 07/29/2018 8:05 AM CDT Screening for malignant neoplasm of cervix XR MAMMO BILAT SCREENING Routine 03/07/2016 10:12 AM HOOP PUNCH OPERATOR HELPER Visit for screening mammogram from Last 3 Months or Most Recently Relevant to Health Maintenance Results * (ABNORMAL) LIPID PANEL W REFLEX MEASURED LDL [[id number]] (07/29/2018 8:31 AM CDT) CHOLESTEROL,TOTAL 172 100 - 199 mg/dL 07/29/2018 1:47 PM CDT [facility] TRIGLYCERIDES 172(H) <150 mg/dL 07/29/2018 1:47 PM CDT [facility] [employer] HDL CHOLESTEROL 34(L) >40 mg/dL 9 1:47 PM CDT [facility] NON-HDL CHOLESTEROL 138 <145 mg/dl 07/29/2018 1:47 PM CDT [facility] [employer] [facility] CHOL/HDL RATIO 5.06(H) <4.50 07/29/2018 1:47 PM CDT [facility] LDL CHOLESTEROL 104 <=130 mg/dL 07/29/2018 1:47 PM CDT [facility] [employer] PROVIDER ORDERED STATUS RANDOM 07/29/2018 1:47 PM CDT [facility] Blood BLOOD SPECIMEN / Unknown Butterfly / Unknown 07/29/2018 8:31 AM CDT 07/29/2018 8:31 AM CDT us Mayuri Corcoran MD CHEMISTRY Final Resul t [facility] [address] [place] [address], [place] * INSTRUCTIONAL TECHNOLOGY TEACHER THIN PREP PAP SCREEN IMAGED [[id number]] (07/29/2018 8:05 AM CDT) Case Report Gynecologic Cytology Report Case: [id number] Authorizing Provider: Mayuri Corcoran MD Collected: 07/29/2018 0805 Ordering Location: [facility] Received: 07/29/2018 0831 Clinic First Screen: Jasen Paula Pathologist: Molina Arias Jr., MD Specimen: INSTRUCTIONAL TECHNOLOGY TEACHER ThinPrep Vial Screening, Cervical 08/05/2018 6:40 AM CDT [facility] [employer] [facility] INTERPRETATION/ RESULT NEGATIVE FOR INTRAEPITHELIAL LESION OR MALIGNANCY (NIL) (none) 08/05/2018 6:40 AM CDT [facility] IMEN ADEQUACY Satisfactory for evaluation Endocervical component present 08/05/2018 6:40 AM CDT [facility] [employer] [facility] HPV REQUEST HPV and PAP 08/05/2018 6:40 AM CDT [facility] [employer] [facility] Date of LMP 07/11/2018 08/05/2018 6:40 AM CDT [facility] Last Pap Date 10/02/11 08/05/2018 6:40 AM CDT [facility] Last Pap Result NIL 9 6:40 AM CDT [facility] Abnormal Pap or Eaton Bx in last 5 years No 08/05/2018 6:40 AM CDT [facility] Menstrual Status Regular Periods 08/05/2018 6:40 AM CDT [facility] [employer] [facility] Eaton Bx Done Today No 08/05/2018 6:40 AM CDT [facility] Additional Information None given 08/05/2018 6:40 AM CDT [facility] [employer] [facility] Automated Review Successful 08/05/2018 6:40 AM CDT [facility] Comment:Specimen processed s uccessfully by automated hold worker device, ThinPrep Imaging System, [employer] ANCILLARY TESTING INSTRUCTIONAL TECHNOLOGY TEACHER HPV Ordered, Please see separate report 08/05/2018 6:40 AM CDT [facility] ENTRAL LABORATORY Note The pap [...] and interpreted at [facility] [place] [facility] - [address], [place] [address] and [facility] - [address]; [place] [address] and [facility] - [address]; [place] [address] and [facility] [address]; [place] [address] 08/05/2018 6:40 AM CDT [facility] Other (Cervical) Non-Blood / Unknown 07/29/2018 8:05 AM CDT 07/29/2018 8:31 AM CDT us Mayuri Corcoran MD PATHOLOGY/CYTOLOGY Final Re sult [facility] [address] [place] [address], [place] * XR MAMMO BILAT SCREENING (03/07/2016 10:12 AM HOOP PUNCH OPERATOR HELPER) Anatomical Region Laterality Modality BREASTS, Breast Left, Breast Right Bilateral Mammography Impressions 03/07/2016 12:39 PM HOOP PUNCH OPERATOR HELPER There is no radiographic evidence for malignancy. Recommend annual mammograms. A lay language report of this examination will be provided to the patient. MAMMOGRAM ASSESSMENT: ACR 2 Benign Narrative 03/07/2016 12:39 PM HOOP PUNCH OPERATOR HELPER XR MAMMO BILAT SCREENING [[id number]] CLINICAL HISTORY: This is an asymptomatic 40 [...] Most Recently Relevant to Health Maintenance Insurance [facility] Care Teams Art Tracer Relationship Specialty Start Date End Date Mayuri [place] [address] PCP - General Family Practice 09/15/18
--- OUTSIDE RECORDS SUMMARY | 2024-02-21 00:28 | XMS_ITS ---
Author Organization [facility] Address [address] [place] [address] Care Team Providers Care Optical Lab Technician Name Role Phone Unavailable Unavailable Unavailable Surgery Details Not on file Complications Check Surgery Details section. Procedure Estimated Blood Loss Check Surgery Details section. Procedure Findings Check Surgery Details section. Procedure Specimens Taken Check Surgery Details section.
--- OUTSIDE RECORDS SUMMARY | 2024-02-21 00:29 | XMS_ITS | Encounter Summary ---
Author Organization [facility] Address [address] [place] [address] Care Team Providers Care Metal Sprayer Name Role Phone None Reported, Pcp Primary Care Provider Unavail able Reason for Visit * Outpatient (Routine) - Closed Specialty Diagnoses / Procedures Referred By Contact Referred To Contact Cardiovascular Diseases / Cardiovascular Disease Diagnoses Patent Foramen Ovale (HCC) Procedures Cardiovascular Disease - General cardiology eConsult Jo Root M.D., Ph.D. [address] [place] [phone] Phone: tel: fax: [facility] Referral ID Status Reason Start Date Expiration Date Visits Re quested Visits Authorized [id number] Closed 12/09/2023 12/08/2024 1 1 Encounter Details Date Type Department Care Team (Latest Contact Info) Description 01/22/2024 1:00 PM STRETCH MACHINE OPERATOR Internal E-Consult Department of Cardiovascular Medicine in [place], [place] [address] [place] [phone] Samuel Love M.B., Ch.B., D.Leonardo. [address] [place] [phone] Patent Foramen Ovale (HCC) Social History Tobacco Use Types Packs/Day Years Used Date Smoking Tobacco: Never Smokeless Tobacco: Never Alcohol Use Standard Drinks/Week Comments Never 0 (1 standard drink = 0.6 oz pur e alcohol) [facility] Utilities Answer Date Recorded In the [...] living situation today? I have a [facility] place to live 11/07/2023 Comments No Sex and Gender Information Value Date Recorded Sex Assigned at Female 03/13/2023 1:38 PM STRETCH MACHINE OPERATOR Legal Sex Female 10:08 PM STRETCH MACHINE OPERATOR Gender Identity Female 03/13/2023 1:42 PM STRETCH MACHINE OPERATOR Sexual Orientation Straight 03/13/2023 1: 42 PM STRETCH MACHINE OPERATOR documented as of this encounter Consult Notes [...] Love M.B.Ch.B., [place]. CT CT Job ID: [id number] TCH MACHINE OPERATOR documented in this encounter Plan of Treatment Upcoming Encounters Date Type Department Care Team (Latest Contact Info) Description 03/02/2024 10:00 AM STRETCH MACHINE OPERATOR Telemedicine Department of Patient Education in [address] [phone] Sheree Franz M.D. [address] [place] [phone] 03/05/2024 11:30 AM STRETCH MACHINE OPERATOR Clinical Communication Virtual Review in [place], [place] 200 [place] [phone] 03/09/2024 6:40 AM STRETCH MACHINE OPERATOR Lab Department of Laboratory Medicine and Pathology, [facility] in [address] [phone] Sheree Franz M.D. [address] [place] [phone] 03/09/2024 6:50 AM STRETCH MACHINE OPERATOR Lab Department of Laboratory Medicine and Pathology, [facility] in [address] [phone] Sheree Franz M.D. [address] [place] [phone] 03/09/2024 7:20 AM STRETCH MACHINE OPERATOR Ancillary Procedure Department of Cardiovascular Medicine in [address] [phone] Sheree Franz M.D. [address] [place] [phone] 03/09/2024 9:00 AM STRETCH MACHINE OPERATOR Comprehensive Visit Division of Endocrinology in [address] [phone] Jo Farris M.D. [address] [place] [address] 03/09/2024 10:30 AM STRETCH MACHINE OPERATOR Comprehensive Visit [facility] in [place], [place] [address] [place] [address] Idalia Hand M.D. [address] [place] [phone] 03/09/2024 12:00 PM STRETCH MACHINE OPERATOR Appointment Department of Radiology, [facility] in [place], [place] [address] [place] [address] Sheree Franz M.D. [address] [place] [phone] 03/09/2024 2:00 PM STRETCH MACHINE OPERATOR Virtual Visit Freddy Slade [facility] Transplantation and Clinical Regeneration in [place], [place] [address] [place] [address] Sheree Franz M.D. [address] [place] [phone] 03/09/2024 3:20 PM STRETCH MACHINE OPERATOR Appointment Department of Cardiovascular Diseases in [place], [place] [address] [place] [address] Sheree Franz M.D. [address] [place] [phone] 03/10/2024 9:00 AM STRETCH MACHINE OPERATOR Comprehensive Visit [facility] Transplantation and Clinical Regeneration in [place], [place] [address] [place] [address] Shahid Edge M.D. [address] [place] [phone] 03/10/2024 1:30 PM STRETCH MACHINE OPERATOR Appointment Division of Nephrology and Hypertension, [facility], in [place], [place] [address] [place] [phone] Nicholas Tracey APRN, C.N.P., M.S.N. [address] [place] [phone] 03/11/2024 8:00 AM STRETCH MACHINE OPERATOR Clinical Support [facility] in [place], [place] [address] [place] [address] Sheree Franz M.D. [address] [place] [phone] Alyse Chang M.S.Kayla., L.I.C.S.W. [address] [place] [phone] 03/11/2024 10:00 AM STRETCH MACHINE OPERATOR Office Visit Freddy martin [facility] for Transplantation and Clinical Regeneration in [place], [place] [address] [place] [phone] Sheree Franz M.D. [address] [place] [phone] 03/11/2024 11:00 AM STRETCH MACHINE OPERATOR Comprehensive Visit Freddy Billy veronica [facility] for Transplantation and Clinical Regeneration in [place], [place] [address] [place] [phone] Sheree Franz M.D. [address] [place] [phone] 03/11/2024 1:00 PM STRETCH MACHINE OPERATOR Nurse Only Freddy martin [facility] for Transplantation and Clinical Regeneration in [place], [place] [address] [place] [phone] Sheree Franz M.D. [address] [place] [phone] 03/11/2024 4:00 PM STRETCH MACHINE OPERATOR Office Visit Freddy Slade [facility] for Transplantation and Clinical Regeneration in [place], [place] [address] [place] [address] Idalia Hand M.D. [address] [place] [phone] 03/23/2024 1:30 PM STRETCH MACHINE OPERATOR Appointment Department of Radiology, [facility], in [place], [place] [address] [place] [address] Glen Baker M.D. [address] [place] [phone] Discharge Disposition: Home or Self Care 03/23/2024 3:00 PM STRETCH MACHINE OPERATOR Nurse Only Division of Nephrology and Hypertension in [place], [place] [address] [place] [address] Glen Baker M.D. [address] [place] [phone] documented as of this encounter Visit Diagnoses Diagnosis Patent Foramen Ovale (HCC) documented in this encounter Care Teams Metal Sprayer Relationship Specialty Start Date End Date None Reported, Pcp PCP - General Family Medicine 03/10/23 documented as of this encounter
--- OUTSIDE RECORDS SUMMARY | 2024-02-21 00:29 | XMS_ITS | Encounter Summary ---
Author Organization [facility] Address [address] [place] [address] Care Team Providers Care Commissary Superintendent Name Role Phone None Reported, Pcp Primary Care Provider Unavail able Reason for Referral * Outpatient (Routine) - Closed Specialty Diagnoses / Procedures Referred By Crow olivo Referred To Contact Radiology Diagnoses Complication Dialysis Catheter Subsequent Chronic Failure Renal End Stage Renal Disease Dialysis Dependent (HCC) Procedures IR Dialysis / High Flow Catheter Exchange Nicholas Tracey APRN, C.N.P., M.S.N. [address] [place] [phone] Phone: tel: fax: [facility] Referral ID Status Reason Start Date Expiration Date Visits Re quested Visits Authorized [id number] Closed 02/06/2024 02/05/2025 1 1 REVIEWER Encounter Details Date Type Department Care Team (Late st Contact Info) Description 02/06/2024 Orders Only Division of Nephrology and Hypertension, [facility], in [place], [place] [address] [place] [phone] Nicholas Tracey APRN, C.N.P., M.S.N. [address] [place] [phone] Complication Dialysis Catheter Subsequent (Primary Dx); Chronic Failure Renal End Stage Renal Disease Dialysis Dependent (HCC) Social History Tobacco Use Types Packs/Day Years Used Date Smoking Tobacco: Never Smokeless Tobacco: Never Alcohol Use Standard Drinks/Week Comments Never 0 (1 standard drink = 0.6 oz pur e alcohol) [facility] Utilities Answer Date Recorded In the past 12 months has e [employer], gas, oil, or water [employer] threatened to shut off services in your [...] Sex Assigned at Female 03/13/2023 1:38 PM QA REVIEWER Legal Sex Female 10:08 PM QA REVIEWER Gender Identity Female 03/13/2023 1:42 PM QA REVIEWER Sexual Orientation Straight 03/13/2023 1: 42 PM QA REVIEWER documented as of this encounter Plan of Treatment Upcoming Encounters Date Type Department Care Team (Latest Contact Info) Description 03/02/2024 10:00 AM QA REVIEWER Telemedicine Department of Patient Education in [place], [place] [address] [place] [phone] Sheree Franz M.D. [address] [place] [phone] 03/05/2024 11:30 AM QA REVIEWER Clinical Communication Virtual Review in [place], [place] 200 [place] [address] 03/09/2024 6:40 AM QA REVIEWER Lab Department of Laboratory Medicine and Pathology, [place], [place] [address] [place] [phone] Sheree Franz M.D. [address] [place] [phone] 03/09/2024 6:50 AM QA REVIEWER Lab Department of Laboratory Medicine and Pathology, [facility] in [place], [place] [address] [place] [phone] Sheree Franz M.D. [address] [place] [phone] 03/09/2024 7:20 AM QA REVIEWER Ancillary Procedure Department of Cardiovascular Medicine in [place], [place] [address] [place] [address] Sheree Franz M.D. [address] [place] [phone] 03/09/2024 9:00 AM QA REVIEWER Comprehensive Visit Division of Endocrinology in [place], [place] [address] [place] [phone] Jo Farris M.D. [address] [place] [phone] 03/09/2024 10:30 AM QA REVIEWER Comprehensive Visit Freddy Diaz [place] [facility] Trans[facility] and Clinical Regeneration in [place], [place] [address] [place] [address] Idalia Hand M.D. [address] [place] [phone] 03/09/2024 12:00 PM QA REVIEWER Appointment Department of Radiology, [facility], in [place], [place] [address] [place] [phone] Sheree Franz M.D. [address] [place] [phone] 03/09/2024 2:00 PM QA REVIEWER Virtual Visit Freddy Diaz [facility] Transplantation and Clinical Regeneration in [place], [place] [address] [place] [phone] Sheree Franz M.D. [address] [place] [phone] 03/09/2024 3:20 PM QA REVIEWER Appointment Department of Cardiovascular Diseases in [place], [place] [address] [place] [address] Sheree Franz M.D. [address] [place] [phone] 03/10/2024 9:00 AM QA REVIEWER Comprehensive Visit [facility] in [place], [place] [address] [place] [address] Shahid Edge M.D. [address] [place] [phone] 03/10/2024 1:30 PM QA REVIEWER Appointment Division of Nephrology and Hypertension, [facility], in [place], [place] [address] [place] [address] Nicholas Tracey, MAGY, C.N.P., M.S.N. [address] [place] [phone] 03/11/2024 8:00 AM QA REVIEWER Clinical Support [facility] Transplantation and Clinical Regeneration in [place], [place] [address] [place] [address] Sheree Franz M.D. [address] [place] [phone] Alyse Chang M.SInessa, L.I.C.S.W. [address] [place] [phone] 03/11/2024 10:00 AM QA REVIEWER [facility] in [place], [place] [address] [place] [address] Sheree Franz M.D. [address] [place] [phone] 03/11/2024 11:00 AM QA REVIEWER Comprehensive Visit [facility] and Clinical Regeneration in [place], [place] [address] [place] [phone] Sheree Franz M.D. [address] [place] [phone] 03/11/2024 1:00 PM QA REVIEWER Nurse Only Freddy martin [facility] Transplantation and Clinical Regeneration in [place], [place] [address] [place] [phone] Sheree Franz M.D. [address] [place] [phone] 03/11/2024 4:00 PM QA REVIEWER [facility]eneration in [place], [place] [address] [place] [phone] Idalia Hand M.D. [address] [place] [phone] 03/23/2024 1:30 PM QA REVIEWER Appointment Department of Radiology, [facility], in [place], [place] [address] [place] [phone] Glen Baker M.D. [address] [place] [phone] Discharge Disposition: Home or Self Care 03/23/2024 3:00 PM QA REVIEWER Nurse Only Division of Nephrology and Hypertension in [place], [place] [address] [place] [phone] Glen Baker M.D. [address] [place] [phone] documented as of this encounter Results * IR Dialysis / High Flow Catheter Exchange (02/06/2024 1:12 PM QA REVIEWER) Anatomical Region Laterality Modality Body, Vascular Interventiona l RST LOS, Vascular Interventional ARZ LOS, Vascular Interventional FLA LOS N/A X-Ray Angiography Impressions 02/06/2024 1:46 PM QA REVIEWER Exchange of a tunneled dialysis catheter, ready for use. NR Narrative 02/06/2024 1:46 PM QA REVIEWER EXAM: IR DIALYSIS / HIGH FLOW CATHETER EXCHANGE CLINICAL HISTORY: 48-year-old female patient with recurring catheter dysfunction and subsequent exchanges. TECHNIQUE: The patient was placed supine on the fluoroscopy table. The right neck, chest, and indwelling catheter were prepared and draped in sterile fashion. Fluoroscopic journeyman pressman image demonstrates a tunneled dialysis catheter in [...] were prepared and draped insterile fashion. Fluoroscopic journeyman pressman image demonstrates a tunneled dialysiscatheter in expected [...] (HCC) documented in this encounter Care Teams Commissary Superintendent Relationship Specialty Start Date End Date None Reported, Pcp PCP - General Family Medicine 03/10/23 documented as of this encounter
--- OUTSIDE RECORDS SUMMARY | 2024-02-21 00:29 | XMS_ITS | Encounter Summary ---
Author Organization [facility] Address [address] [place] [address] Care Team Providers Care Sewing Machine Attachment Tester Name Role Phone None Reported, Pcp Primary Care Provider Unavail able Reason for Referral * MRI/CAT/PET Scan (Routine) - Closed Specialty Diagnoses / Procedures Referred By Contac t Referred To Contact Radiology Diagnoses Nodule Pulmonary Procedures CT Chest without IV Contrast Jo Root M.D., Ph.D. 200 [place] [address] Phone: tel: fax: [facility] Referral ID Status Reason Start Date Expiration Date Visits Re quested Visits Authorized [id number] Closed 01/21/2024 01/20/2025 1 1 RVISOR CURING ROOM Reason for Visit * MRI/CAT/PET Scan (Routine) - Closed Specialty Diagnoses / Procedures Referred By Contac t Referred To Contact Radiology Diagnoses Nodule Pulmonary Procedures CT Chest without IV Contrast Jo Root M.D., Ph.D. [address] [place] [phone] Phone: tel: fax: [facility] Referral ID Status Reason Start Date Expiration Date Visits Re quested Visits Authorized [id number] Closed 01/21/2024 01/20/2025 1 1 Encounter Details Date Type Department Care Team (Latest Contact Info) Description 02/01/2024 10:38 AM SUPERVISOR CURING ROOM - 02/01/2024 11:59 PM SUPERVISOR CURING ROOM Hospital Encounter Department of Radiology, [facility], in [place], [place] [address] [place] [address] Jo Root M.D., Ph.D. [address] [place] [address] Nodule Pulmonary Discharge Disposition: Home or Self Care Social History Tobacco Use Types Packs/Day Years Used Date Smoking Tobacco: Never Smokeless Tobacco: Never Alcohol Use Standard Drinks/Week Comments Never 0 (1 standard drink = 0.6 oz pur e alcohol) [facility] Utilities Answer Date Recorded In the past 12 months has e [employer], gas, oil, or water [employer] threatened to shut off services in your [...] living situation today? I have a [facility] place to live 11/07/2023 Comments No Sex and Gender Information Value Date Recorded Sex Assigned at Female 03/13/2023 1:38 PM SUPERVISOR CURING ROOM Legal Sex Female 10:08 PM SUPERVISOR CURING ROOM Gender Identity Female 03/13/2023 1:42 PM SUPERVISOR CURING ROOM Sexual Orientation Straight 03/13/2023 1: 42 PM SUPERVISOR CURING ROOM documented as of this encounter Medications at [...] Contact Info) Description 03/02/2024 10:00 AM SUPERVISOR CURING ROOM Telemedicine Department of Patient Education in [place], [place] [address] [place] [phone] Sheree Franz M.D. [address] [place] [phone] 03/05/2024 11:30 AM SUPERVISOR CURING ROOM Clinical Communication Virtual Review in [address] [phone] 03/09/2024 6:40 AM SUPERVISOR CURING ROOM Lab Department of Laboratory Medicine and Pathology, [place], [place] [address] [place] [phone] Sheree Franz M.D. [address] [place] [phone] 03/09/2024 6:50 AM SUPERVISOR CURING ROOM Lab Department of Laboratory Medicine and Pathology, [facility] in [place], [place] [address] [place] [phone] Sheree Franz M.D. [address] [place] [phone] 03/09/2024 7:20 AM SUPERVISOR CURING ROOM Ancillary Procedure Department of Cardiovascular Medicine in [address] [phone] Sheree Franz M.D. [address] [place] [phone] 03/09/2024 9:00 AM SUPERVISOR CURING ROOM Comprehensive Visit Division of Endocrinology in [place], [place] [address] [place] [address] Jo Farris M.D. [address] [place] [phone] 03/09/2024 10:30 AM SUPERVISOR CURING ROOM Comprehensive Visit Freddy martin [facility] for Transplantation and Clinical Regeneration in [place], [place] [address] [place] [address] Idalia Hand M.D. [address] [place] [phone] 03/09/2024 12:00 PM SUPERVISOR CURING ROOM Appointment Department of Radiology, [facility], in [place], [place] [address] [place] [address] Sheree Franz M.D. [address] [place] [phone] 03/09/2024 2:00 PM SUPERVISOR CURING ROOM [facility]eneration in [place], [place] [address] [place] [address] Sheree Franz M.D. [address] [place] [phone] 03/09/2024 3:20 PM SUPERVISOR CURING ROOM Appointment Department of Cardiovascular Diseases in [place], [place] [address] [place] [address] Sheree Franz M.D. [address] [place] [phone] 03/10/2024 9:00 AM SUPERVISOR CURING ROOM Comprehensive Visit Freddy Berlin [facility] Transplantation and Clinical Regeneration in [place], [place] [address] [place] [address] Shahid Edge M.D. [address] [place] [address] 03/10/2024 1:30 PM SUPERVISOR CURING ROOM Appointment Division of Nephrology and Hypertension, [facility], in [place], [place] [address] [place] [address] Nicholas Tracey, MAGY, C.N.P., M.S.N. [address] [place] [phone] 03/11/2024 8:00 AM SUPERVISOR CURING ROOM Clinical Support [facility] in [place], [place] [address] [place] [address] Sheree Franz M.D. [address] [place] [phone] Alyse Chang M.S.Kayla., L.I.C.S.W. [address] [place] [phone] 03/11/2024 10:00 AM SUPERVISOR CURING ROOM Office [facility] in [place], [place] [address] [place] [address] Sheree Franz M.D. [address] [place] [phone] 03/11/2024 11:00 AM SUPERVISOR CURING ROOM Comprehensive Visit [facility] in [place], [place] [address] [place] [address] Sheree Franz M.D. [address] [place] [phone] 03/11/2024 1:00 PM SUPERVISOR CURING ROOM Nurse Only [facility] in [place], [place] [address] [place] [address] Sheree Franz M.D. [address] [place] [phone] 03/11/2024 4:00 PM SUPERVISOR CURING ROOM Office [facility] Trans[facility] and Clinical Regeneration in [place], [place] [address] [place] [address] Idalia Hand M.D. [address] [place] [phone] 03/23/2024 1:30 PM SUPERVISOR CURING ROOM Appointment Department of Radiology, [facility], in [place], [place] [address] [place] [address] Glen Baker M.D. [address] [place] [phone] Discharge Disposition: Home or Self Care 03/23/2024 3:00 PM SUPERVISOR CURING ROOM Nurse Only Division of Nephrology and Hypertension in [place], [place] [address] [place] [address] Glen Baker M.D. [address] [place] [phone] documented as of this encounter Procedures Procedure Name Priority Date/Time Associated Diagnosis Comments CT CHEST WITHOUT IV CONTRAST RAD - Routine (most inpatients and all outpatients) 02/01/2024 11:07 AM SUPERVISOR CURING ROOM Nodule Pulmonary documented in this encounter Results * CT Chest without IV Contrast (02/01/2024 11:07 AM SUPERVISOR CURING ROOM) Anatomical Region Laterality Modality Chest, Thoracic RST LOS, Tho racic ARZ LOS, Thoracic FLA LOS N/A Computed Tomography, Compute d Tomography Impressions 02/01/2024 4:08 PM SUPERVISOR CURING ROOM Nearly resolved prior right upper lobe semisolid nodule, which was likely infectious/inflammatory. No concerning pulmonary nodules. Narrative 02/01/2024 4:08 PM SUPERVISOR CURING ROOM EXAM: CT CHEST WITHOUT IV CONTRAST COMPARISON: [...] Pulmonary documented in this encounter Care Teams Sewing Machine Attachment Tester Relationship Specialty Start Date End Date None Reported, Pcp PCP - General Family Medicine 03/10/23 documented as of this encounter
--- OUTSIDE RECORDS SUMMARY | 2024-02-21 00:29 | XMS_ITS | Encounter Summary ---
Author Organization [facility] Address [address] [place] [address] Care Team Providers Care Auto Fleet Maintenance Manager Name Role Phone None Reported, Pcp Primary Care Provider Unavail able Reason for Referral * Outpatient (Routine) - Authorized Specialty Diagnoses / Procedures Referred By Contac t Referred To Contact Diagnoses Chronic Failure Renal End Stage Renal Disease Dialysis Dependent (HCC) Procedures US Hemodialysis Fistula-Graft Left Glen Baker M.D. [address] [place] [address] Phone: tel: fax: [facility] Referral ID Status Reason Start Date Expiration Date V isits Requested Visits Authorized [id number] Authorized 02/13/2024 02/12/2025 1 1 GATHERING TECHNICIAN * Outpatient (Routine) - Authorized Specialty Diagnoses / Procedures Referred By Crow t Referred To Contact Nephrology and Hypertension Glen Baker M.D. [address] [place] [address] Phone: tel: fax: [facility] Referral ID Status Reason Start Date Expiration Date V isits Requested Visits Authorized [id number] Authorized 02/13/2024 08/14/2025 1 1 GATHERING TECHNICIAN Encounter Details Date Type Department Care Team (Late st Contact Info) Description 02/13/2024 Orders Only Division of Nephrology and Hypertension in [place], [place] [address] [place] [address] Yennifer Valderrama M.S.N., R.N. [address] [place] [address] Chronic Failure Renal End Stage Renal Disease Dialysis Dependent (HCC) (Primary Dx) Social History Tobacco Use Types Packs/Day Years Used Date Smoking Tobacco: Never Smokeless Tobacco: Never Alcohol Use Standard Drinks/Week Comments Never 0 (1 standard drink = 0.6 oz pur e alcohol) [facility] Utilities Answer Date Recorded In the past 12 months has e electric, gas, oil, or water [employer] threatened to shut off services in your [...] [facility] to live 11/07/2023 Comments No Sex and Gender Information Value Date Recorded Sex Assigned at Female 03/13/2023 1:38 PM NEWS GATHERING TECHNICIAN Legal Sex Female 10:08 PM NEWS GATHERING TECHNICIAN Gender Identity Female 03/13/2023 1:42 PM NEWS GATHERING TECHNICIAN Sexual Orientation Straight 03/13/2023 1: 42 PM NEWS GATHERING TECHNICIAN documented as of this encounter Plan of Treatment Upcoming Encounters Date Type Department Care Team (Latest Contact Info) Description 03/02/2024 10:00 AM NEWS GATHERING TECHNICIAN Telemedicine Department of Patient Education in [address] [phone] Sheree Franz M.D. [address] [place] [phone] 03/05/2024 11:30 AM NEWS GATHERING TECHNICIAN Clinical Communication Virtual Review in [place], [place] 200 [place] [address] 03/09/2024 6:40 AM NEWS GATHERING TECHNICIAN Lab Department of Laboratory Medicine and Pathology, [facility], in [place], [place] [address] [place] [phone] Sheree Franz M.D. [address] [place] [phone] 03/09/2024 6:50 AM NEWS GATHERING TECHNICIAN Lab Department of Laboratory Medicine and Pathology, [facility], in [place], [place] [address] [place] [address] Sheree Franz M.D. [address] [place] [phone] 03/09/2024 7:20 AM NEWS GATHERING TECHNICIAN Ancillary Procedure Department of Cardiovascular Medicine in [place], [place] [address] [place] [address] Sheree Franz M.D. [address] [place] [phone] 03/09/2024 9:00 AM NEWS GATHERING TECHNICIAN Comprehensive Visit Division of Endocrinology in [place], [place] [address] [place] [address] Jo Farris M.D. [address] [place] [phone] 03/09/2024 10:30 AM NEWS GATHERING TECHNICIAN Comprehensive [facility] in [place], [place] [address] [place] [address] Idalia Hand M.D. [address] [place] [phone] 03/09/2024 12:00 PM NEWS GATHERING TECHNICIAN Appointment Department of Radiology, [facility], in [place], [place] [address] [place] [address] Sheree Franz M.D. [address] [place] [phone] 03/09/2024 2:00 PM NEWS GATHERING TECHNICIAN Virtual Visit [facility] in [place], [place] [address] [place] [address] Sheree Franz M.D. [address] [place] [phone] 03/09/2024 3:20 PM NEWS GATHERING TECHNICIAN Appointment Department of Cardiovascular Diseases in [place], [place] [address] [place] [phone] Sheree Franz M.D. [address] [place] [phone] 03/10/2024 9:00 AM NEWS GATHERING TECHNICIAN Comprehensive Visit [facility] for Transplantation and Clinical Regeneration in [place], [place] [address] [place] [phone] Shahid Edge M.D. [address] [place] [phone] 03/10/2024 1:30 PM NEWS GATHERING TECHNICIAN Appointment Division of Nephrology and Hypertension, [facility], in [place], [place] [address] [place] [phone] Nicholas Tracey APRN, C.N.P., M.S.N. [address] [place] [phone] 03/11/2024 8:00 AM NEWS GATHERING TECHNICIAN Clinical Support [facility] in [place], [place] [address] [place] [phone] Sheree Franz M.D. [address] [place] [phone] Alyse Chang M.S.W., L.I.C.S.W. [address] [place] [phone] 03/11/2024 10:00 AM NEWS GATHERING TECHNICIAN Office Visit [facility] for Transplantation and Clinical Regeneration in [place], [place] [address] [place] [phone] Sheree Franz M.D. [address] [place] [phone] 03/11/2024 11:00 AM NEWS GATHERING TECHNICIAN Comprehensive Visit [facility] in [place], [place] [address] [place] [phone] Sheree Franz M.D. [address] [place] [phone] 03/11/2024 1:00 PM NEWS GATHERING TECHNICIAN Nurse Only [facility] Transplantation and Clinical Regeneration in [place], [place] [address] [place] [phone] Sheree Franz M.D. [address] [place] [phone] 03/11/2024 4:00 PM NEWS GATHERING TECHNICIAN Office Visit [facility] Transplantation and Clinical Regeneration in [place], [place] [address] [place] [phone] Idalia Hand M.D. [address] [place] [phone] 03/23/2024 1:30 PM NEWS GATHERING TECHNICIAN Appointment Department of Radiology, [facility], in [place], [place] [address] [place] [address] Glen Baker M.D. [address] [place] [phone] Discharge Disposition: Home or Self Care 03/23/2024 3:00 PM NEWS GATHERING TECHNICIAN Nurse Only Division of Nephrology and Hypertension in [place], [place] [address] [place] [address] Glen Baker M.D. [address] [place] [phone] Scheduled Orders Name Type Priority Associated Diagnoses [...] Primary documented in this encounter Care Teams Auto Fleet Maintenance Manager Relationship Specialty Start Date End Date None Reported, Pcp PCP - General Family Medicine 03/10/23 documented as of this encounter
--- OUTSIDE RECORDS SUMMARY | 2024-02-21 00:29 | XMS_ITS | Encounter Summary ---
Author Organization [facility] Address [address] [place] [address] Care Team Providers Care Freight Car Cleaner Name Role Phone None Reported, Pcp Primary Care Provider Unavail able Reason for Visit * Auth/Cert (Routine) Specialty Diagnoses / Procedures Referred By Crow olivo Referred To Contact Diagnoses Chronic Kidney Disease Stage 5 GFR Less Than 15 Dialysis Dependent (HCC) Chronic Kidney Disease Stage 5 GFR Less Than 15 Dialysis Dependent (HCC) [N18.6, Z99.2] Procedures WI ARTERIOVENOUS ANAST OPN DIRECT CREATION FISTULA RADIOCEPHALIC ARTERIOVENOUS Glen Baker M.D. [address] [place] [address] Phone: tel: fax: Referral ID Status Reason Start Date Expiration Date Visits Re quested Visits Authorized [id number] 1 1 Encounter Details Date Type Department Care Team ([facility] Contact Info) Description 02/05/2024 7:45 AM SPOILAGE WORKER - 02/05/2024 11:03 AM SPOILAGE WORKER Surgery [facility]ST [facility] MAIN OR [address] [place] [address] Glen Baker M.D. [address] [place] [address] CREATION FISTULA RADIOCEPHALIC ARTERIOVENOUS Social History Tobacco Use Types Packs/Day Years Used Date Smoking Tobacco: Never Smokeless Tobacco: Never Alcohol Use Standard Drinks/Week Comments Never 0 (1 standard drink = 0.6 oz pur e alcohol) [facility] Utilities Answer Date Recorded In the [...] your living situation today? I have a [facility] place to live 11/07/2023 Comments No Sex and Gender Information Value Date Recorded Sex Assigned at Female 03/13/2023 1:38 PM SPOILAGE WORKER Legal Sex Female 10:08 PM SPOILAGE WORKER Gender Identity Female 03/13/2023 1:42 PM SPOILAGE WORKER Sexual Orientation Straight 03/13/2023 1: 42 PM SPOILAGE WORKER documented as of this encounter Last Filed Vital Signs Vital Sign Reading Time Taken Comments Blood Pressure 127/79 02/05/2024 6:35 AM SPOILAGE WORKER Pulse - - Temperature 36.9 C (98.4 F) 02/05/2024 6:35 AM SPOILAGE WORKER Respiratory Rate 14 02/05/2024 6:35 AM SPOILAGE WORKER Oxygen Saturation 96% 02/05/2024 6:35 AM SPOILAGE WORKER Inhaled Oxygen Concentration - - Weight 107 kg (235 lb 7.2 oz) 02/05/2024 6:35 AM SPOILAGE WORKER Height 165.1 cm (5' 5) 02/05/2024 6:35 AM SPOILAGE WORKER Body Mass Index 39.18 02/05/2024 6:35 AM SPOILAGE WORKER documented in this encounter Medications at Time [...] clinic in 6-8 weeks with ultrasound evaluation. LAGE WORKER LAGE WORKER documented in this encounter OR Notes * Op Note - Deepa Dash M.B.B.S., M.D. - 02/05/2024 9:30 AM CST Pre-op Diagnosis Chronic Kidney Disease Stage 5 GFR Less Than 15 Dialysis Dependent (HCC) Post-op Diagnosis Chronic Kidney Disease Stage 5 GFR Less Than 15 Dialysis Dependent (HCC) Rn Heart A first helper actively participated and was necessary for one [...] Glen Baker M.D. at 02/05/2024 12:02 PM SPOILAGE WORKER LAGE WORKER LAGE WORKER * Brief Op Note - Deepa Dash M.B.B.S., M.D. - 02/05/2024 9:30 AM SPOILAGE WORKER Pre-op Diagnosis Chronic Kidney Disease Stage 5 GFR Less Than 15 Dialysis Dependent (HCC) Post-op Diagnosis Chronic Kidney Disease Stage 5 GFR Less Than 15 Dialysis Dependent (HCC) 3 mm cephalic vein and 3.1 radial artery Dc home Ramesh Fernandez M.D. LAGE WORKER documented in this encounter Plan of Treatment Upcoming Encounters Date Type Department Care Team (Latest Contact Info) Description 03/02/2024 10:00 AM SPOILAGE WORKER Telemedicine Department of Patient Education in [address] [phone] Sheree Franz M.D. [address] [place] [phone] 03/05/2024 11:30 AM SPOILAGE WORKER Clinical Communication Virtual Review in [place], [place] 200 [place] [address] 03/09/2024 6:40 AM SPOILAGE WORKER Lab Department of Laboratory Medicine and Pathology, [address] [phone] Sheree Franz M.D. [address] [place] [phone] 03/09/2024 6:50 AM SPOILAGE WORKER Lab Department of Laboratory Medicine and Pathology, [facility] in [place], [place] [address] [place] [phone] Sheree Franz M.D. [address] [place] [phone] 03/09/2024 7:20 AM SPOILAGE WORKER Ancillary Procedure Department of Cardiovascular Medicine in [address] [phone] Sheree Franz M.D. [address] [place] [address] 03/09/2024 9:00 AM SPOILAGE WORKER Comprehensive Visit Division of Endocrinology in [place], [place] [address] [place] [address] Jo Farris M.D. [address] [place] [phone] 03/09/2024 10:30 AM SPOILAGE WORKER Comprehensive Visit Freddy Diaz [place] [facility] for Transplantation and Clinical Regeneration in [place], [place] [address] [place] [address] Idalia Hand M.D. [address] [place] [phone] 03/09/2024 12:00 PM SPOILAGE WORKER Appointment Department of Radiology, [facility] in [place], [place] [address] [place] [address] Sheree Franz M.D. [address] [place] [phone] 03/09/2024 2:00 PM SPOILAGE WORKER Virtual Visit Freddy Diaz [place] for Transplantation and Clinical Regeneration in [place], [place] [address] [place] [address] Sheree Franz M.D. [address] [place] [phone] 03/09/2024 3:20 PM SPOILAGE WORKER Appointment Department of Cardiovascular Diseases in [place], [place] [address] [place] [address] Sheree Franz M.D. [address] [place] [phone] 03/10/2024 9:00 AM SPOILAGE WORKER Comprehensive Visit [facility] Transplantation and Clinical Regeneration in [place], [place] [address] [place] [address] Shahid Edge M.D. [address] [place] [phone] 03/10/2024 1:30 PM SPOILAGE WORKER Appointment Division of Nephrology and Hypertension, [facility], in [place], [place] [address] [place] [address] Nicholas Tracey, MAGY, C.N.P., M.S.N. [address] [place] [phone] 03/11/2024 8:00 AM SPOILAGE WORKER Clinical Support [facility] Transplantation and Clinical Regeneration in [place], [place] [address] [place] [address] Sheree Franz M.D. [address] [place] [phone] Alyse Chang M.S.Fátima, L.I.C.S.W. [address] [place] [phone] 03/11/2024 10:00 AM SPOILAGE WORKER [facility] in [place], [place] [address] [place] [address] Sheree Franz M.D. [address] [place] [phone] 03/11/2024 11:00 AM SPOILAGE WORKER Comprehensive Visit [facility] Transplantation and Clinical Regeneration in [place], [place] [address] [place] [address] Sheree Franz M.D. [address] [place] [phone] 03/11/2024 1:00 PM SPOILAGE WORKER Nurse Only [facility] Transplantation and Clinical Regeneration in [place], [place] [address] [place] [address] Sheree Franz M.D. [address] [place] [phone] 03/11/2024 4:00 PM SPOILAGE WORKER Office Visit [facility] Transplantation and Clinical Regeneration in [place], [place] [address] [place] [address] Idalia Hand M.D. [address] [place] [phone] 03/23/2024 1:30 PM SPOILAGE WORKER Appointment Department of Radiology, [facility], in [place], [place] [address] [place] [address] Glen Baker M.D. [address] [place] [phone] Discharge Disposition: Home or Self Care 03/23/2024 3:00 PM SPOILAGE WORKER Nurse Only Division of Nephrology and Hypertension in [place], [place] [address] [place] [phone] Glen Baker M.D. [address] [place] [phone] documented as of this encounter Procedures Procedure Name Priority Date/Time Associated Diagnosis Comments CREATION FISTULA RADIOCEPHALIC ARTERIOVENOUS 02/05/2024 8:35 AM SPOILAGE WORKER Chronic Kidney Disease Stage 5 GFR Less Than 15 Dialysis Dependent (HCC) PROTHROMBIN TIME (PT), P STAT 02/05/2024 7:44 AM SPOILAGE WORKER BASIC METABOLIC PANEL, S/P STAT 02/05/2024 7:44 AM SPOILAGE WORKER documented in this encounter Results * Prothrombin Time (PT) (02/05/2024 7:44 AM SPOILAGE WORKER) Pathologist [facility] Prothrombin Time, P 11.5 9.4 - 12.5 sec 02/05/2024 7:58 AM SPOILAGE WORKER STMA INR 1.0 0.9 - 1.1 02/05/2024 7:58 AM SPOILAGE WORKER STMA Comment: ----ADDITIONAL INFORMATION---- Standard intensity warfarin therapeutic range: 2.0 to 3.0 High intensity warfarin therapeutic range: 2.5 to 3.5 Blood (Blood, Venous) 02/05/2024 7:44 AM SPOILAGE WORKER 02/05/2024 7:50 AM SPOILAGE WORKER us Roseline Spears IN SERVICE COORDINATOR, RADIOGRAPHER CARDIAC CATHETERIZATION LAB BLOOD ADD-ON Alley l Result [facility] [address] [place] [address] * (ABNORMAL) Basic Metabolic Panel (02/05/2024 7:44 AM SPOILAGE WORKER) Pathologist [facility] Potassium, P 4.7 3.6 - 5.2 mmol/L 02/05/2024 8:45 AM SPOILAGE WORKER DTL Sodium, P 137 135 - 145 mmol/L 02/05/2024 8:45 AM SPOILAGE WORKER DTL Chloride, P 100 98 - 107 mmol/L 02/05/2024 8:45 AM SPOILAGE WORKER DTL Bicarbonate, P 21(L) 22 - 29 mmol/L 02/05/2024 8:45 AM SPOILAGE WORKER DTL Anion Gap, P 16(H) 7 - 15 02/05/2024 8:45 AM SPOILAGE WORKER DTL BUN (Blood Urea Nitrogen), P 49(H) 6 - 21 mg/dL 02/05/2024 8:45 AM SPOILAGE WORKER DTL Creatinine 5.72(H) 0.59 - 1.04 mg/dL 02/05/2024 8:45 AM SPOILAGE WORKER DTL Estimated GFR (eGFR) <15(L) >=60 mL/min/BSA 02/05/2024 8:45 AM SPOILAGE WORKER DTL Comment: Estimated GFR calculated using the 2020 CKD_EPI creatinine equation. Calcium, Total, P 8.6 8.6 - 10.0 mg/dL 02/05/2024 8:45 AM SPOILAGE WORKER DTL Glucose, P 103 70 - 140 mg/dL 02/05/2024 8:45 AM SPOILAGE WORKER DTL Blood (Blood, Venous) 02/05/2024 7:44 AM SPOILAGE WORKER 02/05/2024 7:59 AM SPOILAGE WORKER us Roseline Spears IN SERVICE COORDINATOR, RADIOGRAPHER CARDIAC CATHETERIZATION LAB BLOOD ADD-ON Alley l Result [facility] [address] [place] [address], [facility] [place] [address] [place] [address] documented in this encounter Visit Diagnoses Diagnosis [...] of 200 mcg Given 02/05/2024 12:42 PM SPOILAGE WORKER 25 mcg Given 02/05/2024 12:22 PM SPOILAGE WORKER 25 mcg Given 02/05/2024 12:15 PM SPOILAGE WORKER 25 mcg gelatin sponge,absorb-porcine 50 sponge (Gelfoam) As needed, Starting on Liv 02/05/24 at 1100, Intra-Op Given 02/05/2024 11:00 AM SPOILAGE WORKER 1 each Left Arm gentamicin-polymixin B 20 mcg/mL-500 units/mL irrigation bottle (DABS Modified Irrigation) irrigation, Once in surgery, OR use only, Starting on Liv 02/05/24 at 0715, For 1 dose, Intra-Op, *IRRIGATION ONLY* gentamicin-polymixin B 20 mcg/mL-500 units/mL irrigation bottle (DABS Modified Irrigation) As needed, Starting on Liv 02/05/24 at 1117, Intra-Op Given 02/05/2024 11:17 AM SPOILAGE WORKER 250 mL Left Arm granisetron (PF) injection 1 mg (KytriL) 1 mg, intravenous, Once as needed, nausea, vomiting, Starting on Liv 02/05/24 at 1203, For 1 dose, PACU (only), If patient does not respond to ondansetron or haloperidol. (Order of antiemetic administration - ondansetron then haloperidol or droperidol then granisetron) Given 02/05/2024 12:08 PM SPOILAGE WORKER 1 mg heparin 10 Units/mL in NaCl 0.9% 500 mL flush solution miscellaneous, Once in surgery, OR use only, Starting on Liv 02/05/24 at 0715, For 1 dose, Intra-Op, *Flush/Irrigation use only* heparin flush As needed, Starting on Liv 02/05/24 at 1120, Intra-Op Given 02/05/2024 11:20 AM SPOILAGE WORKER 100 Units metoprolol tablet 12.5 mg (Lopressor) [...] at 1100, Intra-Op Given 02/05/2024 11:00 AM SPOILAGE WORKER 5,000 Units Left Arm documented in this encounter Active and Recently Administered Medications Times are shown in SPOILAGE WORKER. Scheduled Medication Order 02/03/2024 02/04/2024 02/05/2024 ceFAZolin [...] intravenous, As needed, line care, Starting on Ilv 02/05/24 at 0616, Pre-Op, Prior to and following infusion and between multiple consecutive infusions: sodium chloride 0.9 % injection thrombin (recombinant) topical solution (Recothrom) (CANCELED) As needed, Starting on Liv 02/05/24 at 1100, Intra-Op 1100 (Given - Provid er: Ramesh Fernandez M.D. - Comment: mixed with surgifoam gelatin sponge) documented in this encounter Care Teams Freight Car Cleaner Relationship Specialty Start Date End Date None Reported, Pcp PCP - General Family Medicine 03/10/23 documented as of this encounter
--- OUTSIDE RECORDS SUMMARY | 2024-02-21 00:29 | XMS_ITS | Encounter Summary ---
Author Organization [facility] Address [address] [place] [address] Care Team Providers Care Administrative Support Assoc Name Role Phone None Reported, Pcp Primary Care Provider Unavail able Encounter Details Date Type Department Care Team (Late st Contact Info) Description 01/30/2024 Clinical Communication Division of Nephrology and Hypertension in [place], [place] [address] [place] [address] Jo Root M.D., Ph.D. [address] [place] [phone] Social History Tobacco Use Types Packs/Day Years Used Date Smoking Tobacco: Never Smokeless Tobacco: Never Alcohol Use Standard Drinks/Week Comments Never 0 (1 standard drink = 0.6 oz pur e alcohol) [facility] Utilities Answer Date Recorded In the past 12 months has [employer], gas, oil, or water [facility] threatened to shut off services in your [...] your living situation today? I have a [facility] place to live 11/07/2023 Comments No Sex and Gender Information Value Date Recorded Sex Assigned at Female 03/13/2023 1:38 PM PAINT SPRAYER SANDBLASTER Legal Sex Female 10:08 PM PAINT SPRAYER SANDBLASTER Gender Identity Female 03/13/2023 1:42 PM PAINT SPRAYER SANDBLASTER Sexual Orientation Straight 03/13/2023 1: 42 PM PAINT SPRAYER SANDBLASTER documented as of this encounter Miscellaneous Notes [...] 83 (H) 11/12/2023 CREATININE 6.12 (A) 11/19/2023 T SPRAYER SANDBLASTER T SPRAYER SANDBLASTER documented in this encounter Plan of Treatment Upcoming Encounters Date Type Department Care Team (Latest Contact Info) Description 03/02/2024 10:00 AM PAINT SPRAYER SANDBLASTER Telemedicine Department of Patient Education in [place], [place] [address] [place] [phone] Sheree Franz M.D. [address] [place] [phone] 03/05/2024 11:30 AM PAINT SPRAYER SANDBLASTER Clinical Communication Virtual Review in [place], [place] 200 [place] [address] 03/09/2024 6:40 AM PAINT SPRAYER SANDBLASTER Lab Department of Laboratory Medicine and Pathology, [facility] in [place], [place] [address] [place] [address] Sheree Franz M.D. [address] [place] [phone] 03/09/2024 6:50 AM PAINT SPRAYER SANDBLASTER Lab Department of Laboratory Medicine and Pathology, [facility], in [place], [place] [address] [place] [address] Sheree Franz M.D. [address] [place] [phone] 03/09/2024 7:20 AM PAINT SPRAYER SANDBLASTER Ancillary Procedure Department of Cardiovascular Medicine in [place], [place] [address] [place] [address] Sheree Franz M.D. [address] [place] [phone] 03/09/2024 9:00 AM PAINT SPRAYER SANDBLASTER Comprehensive Visit Division of Endocrinology in [place], [place] [address] [place] [phone] Jo Farris M.D. [address] [place] [phone] 03/09/2024 10:30 AM PAINT SPRAYER SANDBLASTER [facility] in [place], [place] [address] [place] [phone] Idalia Hand M.D. [address] [place] [phone] 03/09/2024 12:00 PM PAINT SPRAYER SANDBLASTER Appointment Department of Radiology, [facility], in [place], [place] [address] [place] [address] Sheree Franz M.D. [address] [place] [phone] 03/09/2024 2:00 PM PAINT SPRAYER SANDBLASTER Virtual Visit [facility] in [place], [place] [address] [place] [address] Sheree Franz M.D. [address] [place] [phone] 03/09/2024 3:20 PM PAINT SPRAYER SANDBLASTER Appointment Department of Cardiovascular Diseases in [place], [place] [address] [place] [address] Sheree Franz M.D. [address] [place] [phone] 03/10/2024 9:00 AM PAINT SPRAYER SANDBLASTER Comprehensive Visit [facility] Trans[facility] Clinical Regeneration in [place], [place] [address] [place] [address] Shahid Edge M.D. [address] [place] [phone] 03/10/2024 1:30 PM PAINT SPRAYER SANDBLASTER Appointment Division of Nephrology and Hypertension, [facility], in [place], [place] [address] [place] [address] Nicholas Tracey, MAGY, C.N.P., M.S.N. [address] [place] [phone] 03/11/2024 8:00 AM PAINT SPRAYER SANDBLASTER Clinical Support [facility] for Transplantation and Clinical Regeneration in [place], [place] [address] [place] [address] Sheree Franz M.D. [address] [place] [phone] Alyse Chang M.S.W., Nieves [address] [place] [phone] 03/11/2024 10:00 AM PAINT SPRAYER SANDBLASTER [facility] in [place], [place] [address] [place] [phone] Sheree Franz M.D. [address] [place] [phone] 03/11/2024 11:00 AM PAINT SPRAYER SANDBLASTER [facility] in [place], [place] [address] [place] [address] Sheree Franz M.D. [address] [place] [phone] 03/11/2024 1:00 PM PAINT SPRAYER SANDBLASTER Nurse Only [facility] in [place], [place] [address] [place] [address] Sheree Franz M.D. [address] [place] [phone] 03/11/2024 4:00 PM PAINT SPRAYER SANDBLASTER Office Visit [facility] for Trans[facility] and Clinical Regeneration in [place], [place] [address] [place] [address] Idalia Hand M.D. [address] [place] [phone] 03/23/2024 1:30 PM PAINT SPRAYER SANDBLASTER Appointment Department of Radiology, [facility], in [place], [place] [address] [place] [address] Glen Baker M.D. [address] [place] [phone] Discharge Disposition: Home or Self Care 03/23/2024 3:00 PM PAINT SPRAYER SANDBLASTER Nurse Only Division of Nephrology and Hypertension in [place], [place] [address] [place] [address] Glen Baker M.D. [address] [place] [address] documented as of this encounter Visit Diagnoses Not on filedocumented in this encounter Care Teams Administrative Support Assoc Relationship Specialty Start Date End Date None Reported, Pcp PCP - General Family Medicine 03/10/23 documented as of this encounter
--- OUTSIDE RECORDS SUMMARY | 2024-02-21 00:29 | XMS_ITS | Encounter Summary ---
Author Organization [facility] Address [address] [place] [address] Care Team Providers Care Date Night Sitter Name Role Phone None Reported, Pcp Primary Care Provider Unavail able Reason for Visit * Auth/Cert (Routine) Specialty Diagnoses / Procedures Referred By Crow olivo Referred To Contact Diagnoses Chronic Kidney Disease Stage 5 GFR Less Than 15 Dialysis Dependent (HCC) Chronic Kidney Disease Stage 5 GFR Less Than 15 Dialysis Dependent (HCC) [N18.6, Z99.2] Procedures MS ARTERIOVENOUS ANAST OPN DIRECT CREATION FISTULA RADIOCEPHALIC ARTERIOVENOUS Glen Baker M.D. [address] [place] [address] Phone: tel: fax: Referral ID Status Reason Start Date Expiration Date Visits Re quested Visits Authorized [id number] 1 1 Encounter Details Date Type Department Care Team (Late st Contact Info) Description 02/05/2024 8:50 AM MULTIMEDIA TECHNICIAN Anesthesia Event RST ROMB MAIN OR [address] [place] [phone] Tao Bello M.D. [address] [place] [phone] Anesthesia Record Procedure Summary Procedure Name Responsible [...] Recorded In the past 12 months has [employer], gas, oil, or water [employer] threatened to shut off services in [...] have a [facility] place to live 11/07/2023 Comments No Sex and Gender Information Value Date Recorded Sex Assigned at Female 03/13/2023 1:38 PM MULTIMEDIA TECHNICIAN Legal Sex Female 10:08 PM MULTIMEDIA TECHNICIAN Gender Identity Female 03/13/2023 1:42 PM MULTIMEDIA TECHNICIAN Sexual Orientation Straight 03/13/2023 1: 42 PM MULTIMEDIA TECHNICIAN documented as of this encounter OR Notes * Anesthesia Postprocedure Evaluation - Tao Bello M.D. - 02/06/2024 9:15 AM CST Patient: Leny Ramirez Procedure Summary Date: 02/05/24 Room / Location: [address] / [facility] in [place], [place] Anesthesia Start: 0850 Anesthesia Stop: 1142 [...] euvolemic Notable Events No notable events documented. IMEDIA TECHNICIAN * Anesthesia Procedure Notes - Roseline Spears [...] Procedure outcome: successful Notable Events: no complications IMEDIA TECHNICIAN * Anesthesia Preprocedure Evaluation - Tao Bello M.D. - 02/05/2024 7:23 AM CST Preprocedure Anesthesia & H&P Assessment Procedure Summary Date/Time: 02/05/24 0745 Procedure: CREATION FISTULA RADIOCEPHALIC ARTERIOVENOUS (Left) Diagnosis: Chronic Kidney Disease Stage 5 GFR Less Than 15 Dialysis Dependent (HCC) [N18.6, Z99.2] Pre-op diagnosis: Chronic Kidney Disease Stage 5 GFR Less Than 15 Dialysis Dependent (HCC) [N18.6, Z99.2] Location: [place] [address] / [facility] in [place], [place] Providers: Glen Baker M.D. Pertinent components [...] with patient /legal guardian or through an portfolio accountant. Risks/Benefits/Alternatives of Blood transfusion discussed with patient / legal guardian, includingan opportunity to ask questions and/or decline some or all transfusion therapies. The patient / legal guardian consented to the use of all blood products, as deemed medically necessary Approval to Proceed: approved for anesthesia IMEDIA TECHNICIAN documented in this encounter Plan of Treatment Upcoming Encounters Date Type Department Care Team (Latest Contact Info) Description 03/02/2024 10:00 AM MULTIMEDIA TECHNICIAN Telemedicine Department of Patient Education in [address] [phone] Sheree Franz M.D. [address] [place] [phone] 03/05/2024 11:30 AM MULTIMEDIA TECHNICIAN Clinical Communication Virtual Review in [address] [phone] 03/09/2024 6:40 AM MULTIMEDIA TECHNICIAN Lab Department of Laboratory Medicine and Pathology, [facility] in [address] [phone] Sheree Franz M.D. [address] [place] [phone] 03/09/2024 6:50 AM MULTIMEDIA TECHNICIAN Lab Department of Laboratory Medicine and Pathology, [facility] in [address] [phone] Sheree Franz M.D. [address] [place] [phone] 03/09/2024 7:20 AM MULTIMEDIA TECHNICIAN Ancillary Procedure Department of Cardiovascular Medicine in [address] [address] Sheree Franz M.D. [address] [place] [phone] 03/09/2024 9:00 AM MULTIMEDIA TECHNICIAN Comprehensive Visit Division of Endocrinology in [place], [place] [address] [place] [phone] Jo Farris M.D. [address] [place] [phone] 03/09/2024 10:30 AM MULTIMEDIA TECHNICIAN Comprehensive Visit [facility] for Transplantation and Clinical Regeneration in [place], [place] [address] [place] [phone] Idalia Hand M.D. [address] [place] [phone] 03/09/2024 12:00 PM MULTIMEDIA TECHNICIAN Appointment Department of Radiology, [facility], in [place], [place] [address] [place] [phone] Sheree Franz M.D. [address] [place] [phone] 03/09/2024 2:00 PM MULTIMEDIA TECHNICIAN Virtual Visit Freddy Berlin [facility] for Transplantation and Clinical Regeneration in [place], [place] [address] [place] [phone] Sheree Franz M.D. [address] [place] [phone] 03/09/2024 3:20 PM MULTIMEDIA TECHNICIAN Appointment Department of Cardiovascular Diseases in [place], [place] [address] [place] [phone] Sheree Franz M.D. [address] [place] [phone] 03/10/2024 9:00 AM MULTIMEDIA TECHNICIAN Comprehensive Visit [facility] Transplantation and Clinical Regeneration in [place], [place] [address] [place] [address] Shahid Edge M.D. [address] [place] [phone] 03/10/2024 1:30 PM MULTIMEDIA TECHNICIAN Appointment Division of Nephrology and Hypertension, [facility], in [place], [place] [address] [place] [address] Nicholas Tracey, MAGY, C.N.P., M.S.N. [address] [place] [phone] 03/11/2024 8:00 AM MULTIMEDIA TECHNICIAN Clinical Support [facility] in [place], [place] [address] [place] [address] Sheree Franz M.D. [address] [place] [phone] Alyse Chang M.SInessa, L.I.C.S.W. [address] [place] [phone] 03/11/2024 10:00 AM MULTIMEDIA TECHNICIAN Office Visit Freddy Slade [facility] for Transplantation and Clinical Regeneration in [place], [place] [address] [place] [address] Sheree Franz M.D. [address] [place] [address] 03/11/2024 11:00 AM MULTIMEDIA TECHNICIAN Comprehensive Visit Freddy martin [facility] for Transplantation and Clinical Regeneration in [place], [place] [address] [place] [address] Sheree Franz M.D. [address] [place] [phone] 03/11/2024 1:00 PM MULTIMEDIA TECHNICIAN Nurse Only Freddy martin [facility] for Transplantation and Clinical Regeneration in [place], [place] [address] [place] [phone] Sheree Franz M.D. [address] [place] [phone] 03/11/2024 4:00 PM MULTIMEDIA TECHNICIAN Office Visit [facility] in [place], [place] [address] [place] [phone] Idalia Hand M.D. [address] [place] [phone] 03/23/2024 1:30 PM MULTIMEDIA TECHNICIAN Appointment Department of Radiology, [facility], in [place], [place] [address] [place] [phone] Glen Baker M.D. [address] [place] [phone] Discharge Disposition: Home or Self Care 03/23/2024 3:00 PM MULTIMEDIA TECHNICIAN Nurse Only Division of Nephrology and Hypertension in [place], [place] [address] [place] [phone] Glen Baker M.D. [address] [place] [phone] documented as of this encounter Procedures Procedure Name Priority Date/Time Associated Diagnosis Comments LDA ANE NON-SURGICAL AIRWAY Routine 02/05/2024 8:58 AM MULTIMEDIA TECHNICIAN documented in this encounter Results * LDA ANE NON-SURGICAL AIRWAY (02/05/2024 8:58 AM MULTIMEDIA TECHNICIAN) Narrative Roseline Spears APRN, CRNA - 02/05/2024 8:58 AM MULTIMEDIA TECHNICIAN Roseline Spears APRN, CRNA 02/05/2024 9:10 AM [...] 1054, Anesthesia Intra-op Given 02/05/2024 10:54 AM MULTIMEDIA TECHNICIAN 1,000 mg ceFAZolin injection 2,000 mg (Ancef) [...] Prophylaxis, surgicalIndications:Prophylaxis, surgical Given 02/05/2024 9:17 AM MULTIMEDIA TECHNICIAN 2 g dexAMETHasone injection (Decadron) intravenous, As needed, Starting on Liv 02/05/24 at 0909, Anesthesia Intra-op Given 02/05/2024 9:09 AM MULTIMEDIA TECHNICIAN 4 mg fentaNYL injection (Sublimaze) intravenous, As needed, Starting on Liv 02/05/24 at 0855, Anesthesia Intra-op Given 02/05/2024 11:24 AM MULTIMEDIA TECHNICIAN 25 mcg Given 02/05/2024 11:08 AM MULTIMEDIA TECHNICIAN 25 mcg Given 02/05/2024 10:57 AM MULTIMEDIA TECHNICIAN 25 mcg heparin (porcine) 1,000 unit/mL injection intravenous, As needed, Starting on Liv 02/05/24 at 0959, Anesthesia Intra-op Given 02/05/2024 9:59 AM MULTIMEDIA TECHNICIAN 2,000 Units lidocaine (PF) (cardiac) injection intravenous, As needed, Starting on Liv 02/05/24 at 0855, Anesthesia Intra-op Given 02/05/2024 8:55 AM MULTIMEDIA TECHNICIAN 100 mg NaCl 0.9% infusion intravenous, Continuous Infusion: Per Instructions PRN, Starting on Liv 02/05/24 at 0853, Anesthesia Intra-op New Bag 02/05/2024 8:53 AM MULTIMEDIA TECHNICIAN ondansetron (PF) injection (Zofran) intravenous, As needed, Starting on Liv 02/05/24 at 0909, Anesthesia Intra-op Given 02/05/2024 9:09 AM MULTIMEDIA TECHNICIAN 4 mg phenylephrine 80 mcg/mL in NaCl 0.9% 250 mL infusion intravenous, Continuous Infusion: Per Instructions PRN, Starting on Liv 02/05/24 at 1038, Anesthesia Intra-op New Bag 02/05/2024 10:38 AM MULTIMEDIA TECHNICIAN 0.3 mcg/kg/min 24.03 mL/hr phenylephrine injection intravenous, As needed, Starting on Liv 02/05/24 at 0856, Anesthesia Intra-op Given 02/05/2024 10:10 AM MULTIMEDIA TECHNICIAN 200 mcg Given 02/05/2024 9:59 AM MULTIMEDIA TECHNICIAN 200 mcg Given 02/05/2024 9:52 AM MULTIMEDIA TECHNICIAN 100 mcg propofoL injection (Diprivan) intravenous, As needed, Starting on Liv 02/05/24 at 0856, Anesthesia Intra-op Given 02/05/2024 9:27 AM MULTIMEDIA TECHNICIAN 40 mg Given 02/05/2024 9:25 AM MULTIMEDIA TECHNICIAN 40 mg Given 02/05/2024 8:57 AM MULTIMEDIA TECHNICIAN 50 mg documented in this encounter Care Teams Date Night Sitter Relationship Specialty Start Date End Date None Reported, Pcp PCP - General Family Medicine 03/10/23 documented as of this encounter
--- OUTSIDE RECORDS SUMMARY | 2024-02-21 00:29 | XMS_ITS | Encounter Summary ---
Author Organization [facility] Address [address] [place] [address] Care Team Providers Care Penal Officer Name Role Phone None Reported, Pcp Primary Care Provider Unavail able Encounter Details Date Type Department Care Team (Late st Contact Info) Description 02/06/2024 Documentation Division of Nephrology and Hypertension, [facility], in [place], [place] [address] [place] [phone] Nicholas Tracey P, MAGY, C.N.P., M.S.N. [address] [place] [phone] Social History Tobacco Use Types Packs/Day Years Used Date Smoking Tobacco: Never Smokeless Tobacco: Never Alcohol Use Standard Drinks/Week Comments Never 0 (1 standard drink = 0.6 oz pur e alcohol) [facility] Utilities Answer Date Recorded In the past 12 months has e [employer], gas, oil, or water [employer] threatened to shut off services in your [...] living situation today? I have a [facility] place to live 11/07/2023 Comments No Sex and Gender Information Value Date Recorded Sex Assigned at Female 03/13/2023 1:38 PM PHYSICAL GEOGRAPHER Legal Sex Female 10:08 PM PHYSICAL GEOGRAPHER Gender Identity Female 03/13/2023 1:42 PM PHYSICAL GEOGRAPHER Sexual Orientation Straight 03/13/2023 1: 42 PM PHYSICAL GEOGRAPHER documented as of this encounter Progress Notes * Nicholas Tracey, BRAINER, C.N.P., M.S.N. - 02/06/2024 7:31 AM CST Ms. 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 She is maintained [place] [facility] hemodialysis at [facility] on Friday,Friday and Friday afternoon session. Her right IJ tunneled hemodialysis catheter was thrombosed t erickson. Nursing not able to flush the catheter and initiate her dialysis today despite alteplase in dwell this morning. She was holding her Warfarin 2 mg daily for 5 days because she had her left upper extremity AV fistula creation yesterday. She is agreeable to go to [facility] in [place] for a right IJ tunneled hemodialysis catheter exchange today. She did not have her breakfast this morning. Charge nurse at [facility] dialysis unit is coordinating her session of hemodialysis tomorrow 02/06/2024 at [facility] dialysis unit in [place]. . ICAL GEOGRAPHER documented in this encounter Plan of Treatment Upcoming Encounters Date Type Department Care Team (Latest Contact Info) Description 03/02/2024 10:00 AM PHYSICAL GEOGRAPHER Telemedicine Department of Patient Education in [address] [phone] Sheree Franz M.D. [address] [place] [phone] 03/05/2024 11:30 AM PHYSICAL GEOGRAPHER Clinical Communication Virtual Review in [place], [place] 200 [place] [phone] 03/09/2024 6:40 AM PHYSICAL GEOGRAPHER Lab Department of Laboratory Medicine and Pathology, [place], [place] [address] [place] [phone] Sheree Franz M.D. [address] [place] [phone] 03/09/2024 6:50 AM PHYSICAL GEOGRAPHER Lab Department of Laboratory Medicine and Pathology, [facility], in [place], [place] [address] [place] [phone] Sheree Franz M.D. [address] [place] [phone] 03/09/2024 7:20 AM PHYSICAL GEOGRAPHER Ancillary Procedure Department of Cardiovascular Medicine in [place], [place] [address] [place] [address] Sheree Franz M.D. [address] [place] [phone] 03/09/2024 9:00 AM PHYSICAL GEOGRAPHER Comprehensive Visit Division of Endocrinology in [place], [place] [address] [place] [phone] Jo Farris M.D. [address] [place] [phone] 03/09/2024 10:30 AM PHYSICAL GEOGRAPHER Comprehensive [facility] in [place], [place] [address] [place] [phone] Idalia Hand M.D. [address] [place] [phone] 03/09/2024 12:00 PM PHYSICAL GEOGRAPHER Appointment Department of Radiology, [facility], in [place], [place] [address] [place] [address] Sheree Franz M.D. [address] [place] [phone] 03/09/2024 2:00 PM PHYSICAL GEOGRAPHER [facility] in [place], [place] [address] [place] [phone] Sheree Franz M.D. [address] [place] [phone] 03/09/2024 3:20 PM PHYSICAL GEOGRAPHER Appointment Department of Cardiovascular Diseases in [place], [place] [address] [place] [address] Sheree Franz M.D. [address] [place] [phone] 03/10/2024 9:00 AM PHYSICAL GEOGRAPHER Comprehensive Visit Freddy martin [facility] for Transplantation and Clinical Regeneration in [place], [place] [address] [place] [phone] Shahid Edge M.D. [address] [place] [phone] 03/10/2024 1:30 PM PHYSICAL GEOGRAPHER Appointment Division of Nephrology and Hypertension, [facility], in [place], [place] [address] [place] [phone] Nicholas Tracey, MAGY, C.N.P., M.S.N. [address] [place] [phone] 03/11/2024 8:00 AM PHYSICAL GEOGRAPHER Clinical Support [facility] in [place], [place] [address] [place] [phone] Sheree Franz M.D. [address] [place] [phone] Alyse Chang M.SVirginia., L.I.C.S.W. [address] [place] [phone] 03/11/2024 10:00 AM PHYSICAL GEOGRAPHER Office Visit Freddy Slade [facility] for Transplantation and Clinical Regeneration in [place], [place] [address] [place] [phone] Sheree Franz M.D. [address] [place] [phone] 03/11/2024 11:00 AM PHYSICAL GEOGRAPHER Comprehensive Visit Freddy Slade [facility] for Transplantation and Clinical Regeneration in [place], [place] [address] [place] [phone] Sheree Franz M.D. [address] [place] [phone] 03/11/2024 1:00 PM PHYSICAL GEOGRAPHER Nurse Only [facility] in [place], [place] [address] [place] [phone] Sheree Franz M.D. [address] [place] [phone] 03/11/2024 4:00 PM PHYSICAL GEOGRAPHER Office Visit Freddy Slade [facility] Transplantation and Clinical Regeneration in [place], [place] [address] [place] [phone] Idalia Hand M.D. [address] [place] [phone] 03/23/2024 1:30 PM PHYSICAL GEOGRAPHER Appointment Department of Radiology, [facility], in [place], [place] [address] [place] [phone] Glen Baker M.D. [address] [place] [phone] Discharge Disposition: Home or Self Care 03/23/2024 3:00 PM PHYSICAL GEOGRAPHER Nurse Only Division of Nephrology and Hypertension in [place], [place] [address] [place] [phone] Glen Baker M.D. [address] [place] [phone] documented as of this encounter Visit Diagnoses Not on filedocumented in this encounter Care Teams Penal Officer Relationship Specialty Start Date End Date None Reported, Pcp PCP - General Family Medicine 03/10/23 documented as of this encounter
--- OUTSIDE RECORDS SUMMARY | 2024-02-21 00:29 | XMS_ITS | Encounter Summary ---
Author Organization [facility] Address [address] [place] [address] Care Team Providers Care Iron Worker Apprentice Name Role Phone None Reported, Pcp Primary Care Provider Unavail able Reason for Referral * Outpatient (Routine) - Closed Specialty Diagnoses / Procedures Referred By Crow olivo Referred To Contact Radiology Diagnoses Complication Dialysis Catheter Subsequent Chronic Failure Renal End Stage Renal Disease Dialysis Dependent (HCC) Procedures IR Dialysis / High Flow Catheter Exchange Nicholas Tracey APRN C.N.P., M.S.N. [address] [place] [phone] Phone: tel: fax: [facility] Referral ID Status Reason Start Date Expiration Date Visits Re quested Visits Authorized [id number] Closed 02/06/2024 02/05/2025 1 1 GRATION PATROL INSPECTOR Reason for Visit * Outpatient (Routine) - Closed Specialty Diagnoses / Procedures Referred By Contlaura olivo Referred To Contact Radiology Diagnoses Complication Dialysis Catheter Subsequent Chronic Failure Renal End Stage Renal Disease Dialysis Dependent (HCC) Procedures IR Dialysis / High Flow Catheter Exchange Nicholas rTacey APRN, C.N.P., M.S.N. [address] [place] [phone] Phone: tel: fax: [facility] Referral ID Status Reason Start Date Expiration Date Visits Re quested Visits Authorized [id number] Closed 02/06/2024 02/05/2025 1 1 Encounter Details Date Type Department Care Team (Latest Contact Info) Description 02/06/2024 10:50 AM IMMIGRATION PATROL INSPECTOR - 02/06/2024 2:09 PM IMMIGRATION PATROL INSPECTOR Hospital Encounter Department of Radiology in [place], [place] [address] [place] [phone] Nicholas Tracey, MAGY, C.N.P., M.S.N. [address] [place] [phone] Amos Torres M.D. [address] [place] [phone] Complication Dialysis Catheter Subsequent; Chronic Failure Renal End Stage Renal Disease Dialysis Dependent (HCC) Discharge Disposition: Home or Self Care Social History Tobacco Use Types Packs/Day Years Used Date Smoking Tobacco: Never Smokeless Tobacco: Never Alcohol Use Standard Drinks/Week Comments Never 0 (1 standard drink = 0.6 oz pur e alcohol) [facility] Utilities Answer Date Recorded In the past 12 months has [employer], gas, oil, or water [employer] threatened to shut off services in your [...] situation today? I have a [facility] place to live 11/07/2023 Comments No Sex and Gender Information Value Date Recorded Sex Assigned at Female 03/13/2023 1:38 PM IMMIGRATION PATROL INSPECTOR Legal Sex Female 10:08 PM IMMIGRATION PATROL INSPECTOR Gender Identity Female 03/13/2023 1:42 PM IMMIGRATION PATROL INSPECTOR Sexual Orientation Straight 03/13/2023 1: 42 PM IMMIGRATION PATROL INSPECTOR documented as of this encounter Last Filed Vital Signs Vital Sign Reading Time Taken Comments Blood Pressure 127/79 02/06/2024 2:00 PM IMMIGRATION PATROL INSPECTOR Pulse 77 02/06/2024 2:00 PM IMMIGRATION PATROL INSPECTOR Temperature 36.4 C (97.5 F) 02/06/2024 1:37 PM IMMIGRATION PATROL INSPECTOR Respiratory Rate 14 02/06/2024 2:00 PM IMMIGRATION PATROL INSPECTOR Oxygen Saturation 98% 02/06/2024 2:00 PM IMMIGRATION PATROL INSPECTOR Inhaled Oxygen Concentration - - Weight 109 kg (241 lb 1.2 oz) 02/06/2024 12:03 P M IMMIGRATION PATROL INSPECTOR Height - - Body Mass Index 40.12 02/05/2024 6:35 AM IMMIGRATION PATROL INSPECTOR documented in this encounter Medications at Time [...] (Latest Contact Info) Description 03/02/2024 10:00 AM IMMIGRATION PATROL INSPECTOR Telemedicine Department of Patient Education in [place], [place] [address] [place] [phone] Sheree Franz M.D. [address] [place] [phone] 03/05/2024 11:30 AM IMMIGRATION PATROL INSPECTOR Clinical Communication Virtual Review in [place], [place] 200 [place] [phone] 03/09/2024 6:40 AM IMMIGRATION PATROL INSPECTOR Lab Department of Laboratory Medicine and Pathology, [facility], in [place], [place] [address] [place] [phone] Sheree Franz M.D. [address] [place] [phone] 03/09/2024 6:50 AM IMMIGRATION PATROL INSPECTOR Lab Department of Laboratory Medicine and Pathology, [facility], in [place], [place] [address] [place] [address] Sheree Franz M.D. [address] [place] [phone] 03/09/2024 7:20 AM IMMIGRATION PATROL INSPECTOR Ancillary Procedure Department of Cardiovascular Medicine in [place], [place] [address] [place] [phone] Sheree Franz M.D. [address] [place] [phone] 03/09/2024 9:00 AM IMMIGRATION PATROL INSPECTOR Comprehensive Visit Division of Endocrinology in [place], [place] [address] [place] [phone] Jo Farris M.D. [address] [place] [phone] 03/09/2024 10:30 AM IMMIGRATION PATROL INSPECTOR Comprehensive Visit Freddy Berlin [facility] for Transplantation and Clinical Regeneration in [place], [place] [address] [place] [address] Idalia Hand M.D. [address] [place] [phone] 03/09/2024 12:00 PM IMMIGRATION PATROL INSPECTOR Appointment Department of Radiology, [facility], in [place], [place] [address] [place] [address] Sheree Franz M.D. [address] [place] [phone] 03/09/2024 2:00 PM IMMIGRATION PATROL INSPECTOR Virtual Visit [facility] for Transplantation and Clinical Regeneration in [place], [place] [address] [place] [phone] Sheree Franz M.D. [address] [place] [phone] 03/09/2024 3:20 PM IMMIGRATION PATROL INSPECTOR Appointment Department of Cardiovascular Diseases in [place], [place] [address] [place] [phone] Sheree Franz M.D. [address] [place] [phone] 03/10/2024 9:00 AM IMMIGRATION PATROL INSPECTOR Comprehensive Visit [facility] Transplantation and Clinical Regeneration in [place], [place] [address] [place] [phone] Shahid Edge M.D. [address] [place] [phone] 03/10/2024 1:30 PM IMMIGRATION PATROL INSPECTOR Appointment Division of Nephrology and Hypertension, [facility], in [place], [place] [address] [place] [phone] Nicholas Tracey, MAGY, C.N.P., M.S.N. [address] [place] [phone] 03/11/2024 8:00 AM IMMIGRATION PATROL INSPECTOR Clinical Support [facility] for Transplantation and Clinical Regeneration in [place], [place] [address] [place] [phone] Sheree Franz M.D. [address] [place] [phone] Alyse Chang, M.S.W., L.I.C.S.W. [address] [place] [phone] 03/11/2024 10:00 AM IMMIGRATION PATROL INSPECTOR Office Visit [facility] in [place], [place] [address] [place] [address] Sheree Franz M.D. [address] [place] [phone] 03/11/2024 11:00 AM IMMIGRATION PATROL INSPECTOR Comprehensive Visit [facility] Transplantation and Clinical Regeneration in [place], [place] [address] [place] [address] Sheree Franz M.D. [address] [place] [phone] 03/11/2024 1:00 PM IMMIGRATION PATROL INSPECTOR Nurse Only [facility] Transplantation and Clinical Regeneration in [place], [place] [address] [place] [address] Sheree Franz M.D. [address] [place] [phone] 03/11/2024 4:00 PM IMMIGRATION PATROL INSPECTOR Office Visit [facility] Transplantation and Clinical Regeneration in [place], [place] [address] [place] [phone] Idalia Hand M.D. [address] [place] [phone] 03/23/2024 1:30 PM IMMIGRATION PATROL INSPECTOR Appointment Department of Radiology, [facility], in [place], [place] [address] [place] [phone] Glen Baker M.D. [address] [place] [phone] Discharge Disposition: Home or Self Care 03/23/2024 3:00 PM IMMIGRATION PATROL INSPECTOR Nurse Only Division of Nephrology and Hypertension in [place], [place] [address] [place] [phone] Glen Baker M.D. [address] [place] [phone] documented as of this encounter Procedures Procedure Name Priority Date/Time Associated Diagnosis Comments IR DIALYSIS / HIGH FLOW CATHETER EXCHANGE RAD - Routine (most inpatients and all outpatients) 02/06/2024 1:12 PM IMMIGRATION PATROL INSPECTOR Complication Dialysis Catheter Subsequent Chronic Failure Renal End Stage Renal Disease Dialysis Dependent (HCC) documented in this encounter Results * IR Dialysis / High Flow Catheter Exchange (02/06/2024 1:12 PM IMMIGRATION PATROL INSPECTOR) Anatomical Region Laterality Modality Body, Vascular Interventiona l RST LOS, Vascular Interventional ARZ LOS, Vascular Interventional FLA LOS N/A X-Ray Angiography Impressions 02/06/2024 1:46 PM IMMIGRATION PATROL INSPECTOR Exchange of a tunneled dialysis catheter, ready for use. NR Narrative 02/06/2024 1:46 PM IMMIGRATION PATROL INSPECTOR EXAM: IR DIALYSIS / HIGH FLOW CATHETER EXCHANGE CLINICAL HISTORY: 48-year-old female patient with recurring catheter dysfunction and subsequent exchanges. TECHNIQUE: The patient was placed supine on the fluoroscopy table. The right neck, chest, and indwelling catheter were prepared and draped in sterile fashion. Fluoroscopic pegger image demonstrates a tunneled dialysis catheter in [...] were prepared and draped insterile fashion. Fluoroscopic pegger image demonstrates a tunneled dialysiscatheter in expected [...] (RAD), Subsequent doses Given 02/06/2024 1:08 PM IMMIGRATION PATROL INSPECTOR 25 mcg Given 02/06/2024 1:05 PM IMMIGRATION PATROL INSPECTOR 25 mcg Given 02/06/2024 1:01 PM IMMIGRATION PATROL INSPECTOR 25 mcg fentaNYL injection 25 mcg (Sublimaze) 25 mcg, intravenous, Once as needed, sedation, Starting on Fri02/06/24 at 1247, For 1 dose, Intraprocedure (RAD), IV Push, Initial dose Given 02/06/2024 1:09 PM IMMIGRATION PATROL INSPECTOR 25 mcg flumazeniL injection 0.2 mg (Romazicon) [...] Intraprocedure (RAD) New Bag 02/06/2024 12:52 PM IMMIGRATION PATROL INSPECTOR 20 mL/h r 20 mL/hr lidocaine 10 mg/mL (1 %) injection (Xylocaine) As needed, Starting on Fri02/06/24 at 1311, Intra-Op Given 02/06/2024 1:11 PM IMMIGRATION PATROL INSPECTOR 2 mL midazolam (PF) injection 0.25 mg [...] than 8 breaths/minute. Given 02/06/2024 1:08 PM IMMIGRATION PATROL INSPECTOR 1 mg Given 02/06/2024 1:01 PM IMMIGRATION PATROL INSPECTOR 1 mg Given 02/06/2024 12:55 PM IMMIGRATION PATROL INSPECTOR 1 mg naloxone injection 0.2 mg (Narcan) [...] at 1312, Intra-Op Given 02/06/2024 1:12 PM IMMIGRATION PATROL INSPECTOR 6 mL documented in this encounter Active and Recently Administered Medications Times are shown in IMMIGRATION PATROL INSPECTOR. Scheduled Medication Order 02/04/2024 02/05/2024 02/06/2024 sodium [...] M.D.) documented in this encounter Care Teams Iron Worker Apprentice Relationship Specialty Start Date End Date None Reported, Pcp PCP - General Family Medicine 03/10/23 documented as of this encounter
--- OUTSIDE RECORDS SUMMARY | 2024-02-21 00:29 | XMS_ITS | Encounter Summary ---
Author Organization [facility] Address [address] [place] [address] Care Team Providers Care Rehab Nursing Tech Name Role Phone None Reported, Pcp Primary Care Provider Unavail able Reason for Visit * Auth/Cert (Routine) Specialty Diagnoses / Procedures Referred By Crow olivo Referred To Contact Diagnoses Chronic Kidney Disease Stage 5 GFR Less Than 15 Dialysis Dependent (HCC) Chronic Kidney Disease Stage 5 GFR Less Than 15 Dialysis Dependent (HCC) [N18.6, Z99.2] Procedures [place] ARTERIOVENOUS ANAST OPN DIRECT CREATION FISTULA RADIOCEPHALIC ARTERIOVENOUS Glen aBker M.D. [address] [place] [address] Phone: tel: fax: Referral ID Status Reason Start Date Expiration Date Visits Re quested Visits Authorized [id number] 1 1 Encounter Details Date Type Department Care Team (Latest Contact Info) Description 02/05/2024 5:41 AM PROOF COIN COLLECTOR - 02/05/2024 3:22 PM PROOF COIN COLLECTOR Hospital Encounter [facility] OR [address] [place] [address] Glen Baker M.D. [address] [place] [address] Discharge Disposition: Home or Self Care Social History Tobacco Use Types Packs/Day Years Used Date Smoking Tobacco: Never Smokeless Tobacco: Never Alcohol Use Standard Drinks/Week Comments Never 0 (1 standard drink = 0.6 oz pur e alcohol) [facility] Utilities Answer Date Recorded In the [...] living situation today? I have a [facility] to live 11/07/2023 Comments No Sex and Gender Information Value Date Recorded Sex Assigned at Female 03/13/2023 1:38 PM PROOF COIN COLLECTOR Legal Sex Female 10:08 PM PROOF COIN COLLECTOR Gender Identity Female 03/13/2023 1:42 PM PROOF COIN COLLECTOR Sexual Orientation Straight 03/13/2023 1: 42 PM PROOF COIN COLLECTOR documented as of this encounter Last Filed Vital Signs Vital Sign Reading Time Taken Comments Blood Pressure 132/95 02/05/2024 3:05 PM PROOF COIN COLLECTOR Pulse 79 02/05/2024 2:55 PM PROOF COIN COLLECTOR Temperature 36.6 C (97.9 F) 02/05/2024 3:15 PM PROOF COIN COLLECTOR Respiratory Rate 17 02/05/2024 2:00 PM PROOF COIN COLLECTOR Oxygen Saturation 96% 02/05/2024 2:55 PM PROOF COIN COLLECTOR Inhaled Oxygen Concentration - - Weight 107 kg (235 lb 7.2 oz) 02/05/2024 6:35 AM PROOF COIN COLLECTOR Height 165.1 cm (5' 5) 02/05/2024 6:35 AM PROOF COIN COLLECTOR Body Mass Index 39.18 02/05/2024 6:35 AM PROOF COIN COLLECTOR documented in this encounter Medications at Time [...] clinic in 6-8 weeks with ultrasound evaluation. F COIN COLLECTOR F COIN COLLECTOR documented in this encounter OR Notes * Op Note - Deepa Dash M.B.B.S., M.D. 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 at 02/05/2024 12:02 PM PROOF COIN COLLECTOR F COIN COLLECTOR F COIN COLLECTOR * Brief Op Note - Deepa Dash M.B.B.S., M.D. - 02/05/2024 9:30 AM PROOF COIN COLLECTOR Pre-op Diagnosis Chronic Kidney Disease Stage 5 GFR Less Than 15 Dialysis Dependent (HCC) Post-op Diagnosis Chronic Kidney Disease Stage 5 GFR Less Than 15 Dialysis Dependent (HCC) 3 mm cephalic vein and 3.1 radial artery Dc home Ramesh Fernandez M.D. F COIN COLLECTOR documented in this encounter Plan of Treatment Upcoming Encounters Date Type Department Care Team (Latest Contact Info) Description 03/02/2024 10:00 AM PROOF COIN COLLECTOR Telemedicine Department of Patient Education in [address] [phone] Sheree Franz M.D. [address] [place] [phone] 03/05/2024 11:30 AM PROOF COIN COLLECTOR Clinical Communication Virtual Review in [address] [phone] 03/09/2024 6:40 AM PROOF COIN COLLECTOR Lab Department of Laboratory Medicine and Pathology, [address] [phone] Sheree Franz M.D. [address] [place] [phone] 03/09/2024 6:50 AM PROOF COIN COLLECTOR Lab Department of Laboratory Medicine and Pathology, [address] [phone] Sheree Franz M.D. [address] [place] [phone] 03/09/2024 7:20 AM PROOF COIN COLLECTOR Ancillary Procedure Department of Cardiovascular Medicine in [address] [place] [address] Sheree Franz M.D. [address] [place] [phone] 03/09/2024 9:00 AM PROOF COIN COLLECTOR Comprehensive Visit Division of Endocrinology in [place], [place] [address] [place] [address] Jo Farris M.D. [address] [place] [phone] 03/09/2024 10:30 AM PROOF COIN COLLECTOR Comprehensive Visit Freddy Diaz [facility] in [place], [place] [address] [place] [address] Idalia Hand M.D. [address] [place] [phone] 03/09/2024 12:00 PM PROOF COIN COLLECTOR Appointment Department of Radiology, [facility], in [place], [place] [address] [place] [address] Sheree Franz M.D. [address] [place] [phone] 03/09/2024 2:00 PM PROOF COIN COLLECTOR Virtual Visit Freddy Diaz [facility] in [place], [place] [address] [place] [address] Sheree Franz M.D. [address] [place] [phone] 03/09/2024 3:20 PM PROOF COIN COLLECTOR Appointment Department of Cardiovascular Diseases in [place], [place] [address] [place] [address] Sheree Franz M.D. [address] [place] [phone] 03/10/2024 9:00 AM PROOF COIN COLLECTOR [facility] in [place], [place] [address] [place] [address] Shahid Edge M.D. [address] [place] [phone] 03/10/2024 1:30 PM PROOF COIN COLLECTOR Appointment Division of Nephrology and Hypertension, [facility], in [place], [place] [address] [place] [address] Nicholas Tracey, MAGY, C.N.P., M.S.N. [address] [place] [phone] 03/11/2024 8:00 AM PROOF COIN COLLECTOR Clinical Support [facility] in [place], [place] [address] [place] [address] Sheree Franz M.D. [address] [place] [phone] Alyse Chang M.S.Fátima, L.I.C.S.W. [address] [place] [phone] 03/11/2024 10:00 AM PROOF COIN COLLECTOR Office Visit Freddy Slade [facility] for Transplantation and Clinical Regeneration in [place], [place] [address] [place] [address] Sheree Franz M.D. [address] [place] [phone] 03/11/2024 11:00 AM PROOF COIN COLLECTOR Comprehensive Visit [facility] in [place], [place] [address] [place] [address] Sheree Franz M.D. [address] [place] [address] 03/11/2024 1:00 PM PROOF COIN COLLECTOR Nurse Only Freddy Slade [facility] Transplantation and Clinical Regeneration in [place], [place] [address] [place] [address] Sheree Franz M.D. [address] [place] [phone] 03/11/2024 4:00 PM PROOF COIN COLLECTOR Office [facility] in [place], [place] [address] [place] [address] Idalia Hand M.D. [address] [place] [phone] 03/23/2024 1:30 PM PROOF COIN COLLECTOR Appointment Department of Radiology, [facility], in [place], [place] [address] [place] [address] Glen Baker M.D. [address] [place] [phone] Discharge Disposition: Home or Self Care 03/23/2024 3:00 PM PROOF COIN COLLECTOR Nurse Only Division of Nephrology and Hypertension in [place], [place] [address] [place] [phone] Glen Baker M.D. [address] [place] [phone] documented as of this encounter Procedures Procedure Name Priority Date/Time Associated Diagnosis Comments CREATION FISTULA RADIOCEPHALIC ARTERIOVENOUS 02/05/2024 8:35 AM PROOF COIN COLLECTOR Chronic Kidney Disease Stage 5 GFR Less Than 15 Dialysis Dependent (HCC) PROTHROMBIN TIME (PT), P STAT 02/05/2024 7:44 AM PROOF COIN COLLECTOR BASIC METABOLIC PANEL, S/P STAT 02/05/2024 7:44 AM PROOF COIN COLLECTOR documented in this encounter Results * Prothrombin Time (PT) (02/05/2024 7:44 AM PROOF COIN COLLECTOR) Prothrombin Time, P 11.5 9.4 - 12.5 sec 02/05/2024 7:58 AM PROOF COIN COLLECTOR STMA INR 1.0 0.9 - 1.1 02/05/2024 7:58 AM PROOF COIN COLLECTOR STMA Comment: ----ADDITIONAL INFORMATION---- Standard intensity warfarin therapeutic range: 2.0 to 3.0 High intensity warfarin therapeutic range: 2.5 to 3.5 Blood (Blood, Venous) 02/05/2024 7:44 AM PROOF COIN COLLECTOR 02/05/2024 7:50 AM PROOF COIN COLLECTOR us Roseline Spears REPORT DEVELOPER, DUTY ENGINEER LAB BLOOD ADD-ON Alley l Result [facility] [address] [place] [address], [facility] [address] [place] [address] * (ABNORMAL) Basic Metabolic Panel (02/05/2024 7:44 AM PROOF COIN COLLECTOR) Pathologist [facility] Potassium, P 4.7 3.6 - 5.2 mmol/L 02/05/2024 8:45 AM PROOF COIN COLLECTOR DTL Sodium, P 137 135 - 145 mmol/L 02/05/2024 8:45 AM PROOF COIN COLLECTOR DTL Chloride, P 100 98 - 107 mmol/L 02/05/2024 8:45 AM PROOF COIN COLLECTOR DTL Bicarbonate, P 21(L) 22 - 29 mmol/L 02/05/2024 8:45 AM PROOF COIN COLLECTOR DTL Anion Gap, P 16(H) 7 - 15 02/05/2024 8:45 AM PROOF COIN COLLECTOR DTL BUN (Blood Urea Nitrogen), P 49(H) 6 - 21 mg/dL 02/05/2024 8:45 AM PROOF COIN COLLECTOR DTL Creatinine 5.72(H) 0.59 - 1.04 mg/dL 02/05/2024 8:45 AM PROOF COIN COLLECTOR DTL Estimated GFR (eGFR) <15(L) >=60 mL/min/BSA 02/05/2024 8:45 AM PROOF COIN COLLECTOR DTL Comment: Estimated GFR calculated using the 2020 CKD_EPI creatinine equation. Calcium, Total, P 8.6 8.6 - 10.0 mg/dL 02/05/2024 8:45 AM PROOF COIN COLLECTOR DTL Glucose, P 103 70 - 140 mg/dL 02/05/2024 8:45 AM PROOF COIN COLLECTOR DTL Blood (Blood, Venous) 02/05/2024 7:44 AM PROOF COIN COLLECTOR 02/05/2024 7:59 AM PROOF COIN COLLECTOR us Roseline Spears APRN, CRNA LAB BLOOD ADD-ON Alley enriquez Result [address] [address], [facility] [address] [address] documented in this encounter Visit Diagnoses Diagnosis [...] of 200 mcg Given 02/05/2024 12:42 PM PROOF COIN COLLECTOR 25 mcg Given 02/05/2024 12:22 PM PROOF COIN COLLECTOR 25 mcg Given 02/05/2024 12:15 PM PROOF COIN COLLECTOR 25 mcg gentamicin-polymixin B 20 mcg/mL-500 units/mL [...] droperidol then granisetron) Given 02/05/2024 12:08 PM PROOF COIN COLLECTOR 1 mg heparin 10 Units/mL in NaCl [...] Recently Administered Medications Times are shown in PROOF COIN COLLECTOR. Scheduled Medication Order 02/03/2024 02/04/2024 02/05/2024 ceFAZolin [...] Intra-Op 1120 (Given - Provid er: Ramesh eFrnandez, Edelmira - Comment: left arm irrigation) metoprolol [...] sponge) documented in this encounter Care Teams Rehab Nursing Tech Relationship Specialty Start Date End Date None Reported, Pcp PCP - General Family Medicine 03/10/23 documented as of this encounter
--- OUTSIDE RECORDS SUMMARY | 2024-02-21 00:30 | XMS_ITS | Encounter Summary ---
Author Organization [facility] Address [address] [place] [address] Care Team Providers Care Sales Exhibitor Name Role Phone None Reported, Pcp Primary Care Provider Unavail able Encounter Details Date Type Department Care Team (Late st Contact Info) Description 12/24/2023 Orders Only Division of Nephrology and Hypertension, [facility], in [place], [place] [address] [place] [phone] Nicholas Tracey P, MAGY, C.N.P., M.S.N. [address] [place] [phone] Social History Tobacco Use Types Packs/Day Years Used Date Smoking Tobacco: Never Smokeless Tobacco: Never Alcohol Use Standard Drinks/Week Comments Never 0 (1 standard drink = 0.6 oz pur e alcohol) [facility] Utilities Answer Date Recorded In the past 12 months has [employer], gas, oil, or water [employer] threatened to shut off services in your [...] your living situation today? I have a [facility] place to live 11/07/2023 Comments No Sex and Gender Information Value Date Recorded Sex Assigned at Female 03/13/2023 1:38 PM HEAD CHAR FILTER TANK TENDER Legal Sex Female 10:08 PM HEAD CHAR FILTER TANK TENDER Gender Identity Female 03/13/2023 1:42 PM HEAD CHAR FILTER TANK TENDER Sexual Orientation Straight 03/13/2023 1: 42 PM HEAD CHAR FILTER TANK TENDER documented as of this encounter Plan of Treatment Upcoming Encounters Date Type Department Care Team (Latest Contact Info) Description 03/02/2024 10:00 AM HEAD CHAR FILTER TANK TENDER Telemedicine Department of Patient Education in [place], [place] [address] [place] [phone] Sheree Franz M.D. [address] [place] [phone] 03/05/2024 11:30 AM HEAD CHAR FILTER TANK TENDER Clinical Communication Virtual Review in [place], [place] [address] [place] [address] 03/09/2024 6:40 AM HEAD CHAR FILTER TANK TENDER Lab Department of Laboratory Medicine and Pathology, [facility] in [place], [place] [address] [place] [phone] Sheree Franz M.D. [address] [place] [phone] 03/09/2024 6:50 AM HEAD CHAR FILTER TANK TENDER Lab Department of Laboratory Medicine and Pathology, [facility] in [place], [place] [address] [place] [phone] Sheree Franz M.D. [address] [place] [phone] 03/09/2024 7:20 AM HEAD CHAR FILTER TANK TENDER Ancillary Procedure Department of Cardiovascular Medicine in [place], [place] [address] [place] [phone] Sheree Franz M.D. [address] [place] [phone] 03/09/2024 9:00 AM HEAD CHAR FILTER TANK TENDER Comprehensive Visit Division of Endocrinology in [place], [place] [address] [place] [phone] Jo Farris M.D. [address] [place] [phone] 03/09/2024 10:30 AM HEAD CHAR FILTER TANK TENDER Comprehensive [facility] in [place], [place] [address] [place] [phone] Idalia Hand M.D. [address] [place] [address] 03/09/2024 12:00 PM HEAD CHAR FILTER TANK TENDER Appointment Department of Radiology, [facility], in [place], [place] [address] [place] [address] Sheree Franz M.D. [address] [place] [address] 03/09/2024 2:00 PM HEAD CHAR FILTER TANK TENDER Virtual Visit Freddy Diaz [place] for Transplantation and Clinical Regeneration in [place], [place] [address] [place] [address] Sheree Franz M.D. [address] [place] [phone] 03/09/2024 3:20 PM HEAD CHAR FILTER TANK TENDER Appointment Department of Cardiovascular Diseases in [place], [place] [address] [place] [address] Sheree Franz M.D. [address] [place] [phone] 03/10/2024 9:00 AM HEAD CHAR FILTER TANK TENDER Comprehensive Visit Freddy Diaz [place] [facility] Transplantation [facility] Clinical Regeneration in [place], [place] [address] [place] [address] Shahid Edge M.D. [address] [place] [phone] 03/10/2024 1:30 PM HEAD CHAR FILTER TANK TENDER Appointment Division of Nephrology and Hypertension, [facility], in [place], [place] [address] [place] [address] Nicholas Tracey, FUNERAL HOME ASSOCIATE, C.N.P., M.S.N. [address] [place] [address] 03/11/2024 8:00 AM HEAD CHAR FILTER TANK TENDER Clinical Support Freddy martin [facility] for Transplantation and Clinical Regeneration in [place], [place] [address] [place] [address] Sheree Franz M.D. [address] [place] [phone] Alyse Chang M.S.W., L.IJanieC.S.W. [address] [place] [address] 03/11/2024 10:00 AM HEAD CHAR FILTER TANK TENDER Office Visit Freddy martin [facility] Transplantation and Clinical Regeneration in [place], [place] [address] [place] [address] Sheree Franz M.D. [address] [place] [phone] 03/11/2024 11:00 AM HEAD CHAR FILTER TANK TENDER Comprehensive Visit Freddy martin [facility] Transplantation and Clinical Regeneration in [place], [place] [address] [place] [address] Sheree Franz M.D. [address] [place] [phone] 03/11/2024 1:00 PM HEAD CHAR FILTER TANK TENDER Nurse Only Freddy Slade [facility] Transplantation and Clinical Regeneration in [place], [place] [address] [place] [address] Sheree Franz M.D. [address] [place] [phone] 03/11/2024 4:00 PM HEAD CHAR FILTER TANK TENDER Office Visit Freddy Slade [facility] Transplantation and Clinical Regeneration in [place], [place] [address] [place] [address] Idalia Hand M.D. [address] [place] [address] 03/23/2024 1:30 PM HEAD CHAR FILTER TANK TENDER Appointment Department of Radiology, [facility], in [place], [place] [address] [place] [address] Glen Baker M.D. [address] [place] [phone] Discharge Disposition: Home or Self Care 03/23/2024 3:00 PM HEAD CHAR FILTER TANK TENDER Nurse Only Division of Nephrology and Hypertension in [place], [place] [address] [place] [address] Glen Baker M.D. [address] [place] [phone] documented as of this encounter Visit Diagnoses Not on filedocumented in this encounter Care Teams Sales Exhibitor Relationship Specialty Start Date End Date None Reported, Pcp PCP - General Family Medicine 03/10/23 documented as of this encounter
--- OUTSIDE RECORDS SUMMARY | 2024-02-21 00:30 | XMS_ITS | Encounter Summary ---
Author Organization [facility] Address [address] [place] [address] Care Team Providers Care Grave Cleaner Name Role Phone None Reported, Pcp Primary Care Provider Unavail able Reason for Visit * Outpatient (Routine) - Closed Specialty Diagnoses / Procedures Referred By Crow olivo Referred To Contact Pulmonary Medicine Diagnoses Nodule Pulmonary Procedures Pulmonary Medicine - Pulmonary nodule(s) eConsult Jo Root M.D., Ph.D. 200 [place] [address] Phone: tel: fax: [facility] Referral ID Status Reason Start Date Expiration Date Visits Re quested Visits Authorized [id number] Closed 12/09/2023 12/08/2024 1 1 Encounter Details Date Type Department Care Team (Latest Contact Info) Description 01/19/2024 8:00 AM RECEIVER STOCKER Internal E-Consult Division of Pulmonary Medicine in [place], [place] 200 [place] [phone] Aleks Velasquez Jr., M.D. [address] [place] [address] Nodule Pulmonary Social History Tobacco Use Types Packs/Day Years Used Date Smoking Tobacco: Never Smokeless Tobacco: Never Alcohol Use Standard Drinks/Week Comments Never 0 (1 standard drink = 0.6 oz pur e alcohol) [facility] Utilities Answer Date Recorded In the past 12 months has th e electric, gas, oil, or water [employer] threatened to shut off services in your [...] your living situation today? I have a [facility] place to live 11/07/2023 Comments No Sex and Gender Information Value Date Recorded Sex Assigned at Female 03/13/2023 1:38 PM RECEIVER STOCKER Legal Sex Female 10:08 PM RECEIVER STOCKER Gender Identity Female 03/13/2023 1:42 PM RECEIVER STOCKER Sexual Orientation Straight 03/13/2023 1: 42 PM RECEIVER STOCKER documented as of this encounter Consult Notes [...] you. Referred by: Jo Root M.D., Ph.D. [address] [place] [phone] HISTORY OF PRESENT ILLNESS Ms. Ramirez is [...] times a week Indications: Blood stream infection. 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 Dialysis center will provide medication., [...] now with comparison to her previous CT. IVER STOCKER documented in this encounter Plan of Treatment Upcoming Encounters Date Type Department Care Team (Latest Contact Info) Description 03/02/2024 10:00 AM RECEIVER STOCKER Telemedicine Department of Patient Education in [address] [address] Sheree Franz M.D. [address] [place] [phone] 03/05/2024 11:30 AM RECEIVER STOCKER Clinical Communication Virtual Review in [place], [place] 200 [place] [address] 03/09/2024 6:40 AM RECEIVER STOCKER Lab Department of Laboratory Medicine and Pathology, [facility], in [place], [place] [address] [place] [phone] Sheree Franz M.D. [address] [place] [phone] 03/09/2024 6:50 AM RECEIVER STOCKER Lab Department of Laboratory Medicine and Pathology, [facility], in [place], [place] [address] [place] [address] Sheree Franz M.D. [address] [place] [phone] 03/09/2024 7:20 AM RECEIVER STOCKER Ancillary Procedure Department of Cardiovascular Medicine in [place], [place] [address] [place] [address] Sheree Franz M.D. [address] [place] [phone] 03/09/2024 9:00 AM RECEIVER STOCKER Comprehensive Visit Division of Endocrinology in [place], [place] [address] [place] [address] Jo Farris M.D. [address] [place] [phone] 03/09/2024 10:30 AM RECEIVER STOCKER [facility] in [place], [place] [address] [place] [address] Idalia Hand M.D. [address] [place] [phone] 03/09/2024 12:00 PM RECEIVER STOCKER Appointment Department of Radiology, [facility], in [place], [place] [address] [place] [address] Sheree Franz M.D. [address] [place] [address] 03/09/2024 2:00 PM RECEIVER STOCKER [facility] in [place], [place] [address] [place] [address] Sheree Franz M.D. [address] [place] [phone] 03/09/2024 3:20 PM RECEIVER STOCKER Appointment Department of Cardiovascular Diseases in [place], [place] [address] [place] [address] Sheree Franz M.D. [address] [place] [phone] 03/10/2024 9:00 AM RECEIVER STOCKER Comprehensive Visit [facility] Transplantation and Clinical Regeneration in [place], [place] [address] [place] [address] Shahid Edge M.D. [address] [place] [phone] 03/10/2024 1:30 PM RECEIVER STOCKER Appointment Division of Nephrology and Hypertension, [facility], in [place], [place] [address] [place] [address] Nicholas Tracey, DIRECTOR OF ARCHIVES, C.N.P., M.S.N. [address] [place] [phone] 03/11/2024 8:00 AM RECEIVER STOCKER Clinical Support [facility] for Transplantation and Clinical Regeneration in [place], [place] [address] [place] [address] Sheree Frnaz M.D. [address] [place] [phone] Alyse Chang, IbisS.W., L.I.C.SInessa [address] [place] [address] 03/11/2024 10:00 AM RECEIVER STOCKER Office Visit [facility] Transplantation and Clinical Regeneration in [place], [place] [address] [place] [address] Sheree Franz M.D. [address] [place] [phone] 03/11/2024 11:00 AM RECEIVER STOCKER [facility] in [place], [place] [address] [place] [address] Sheree Franz M.D. [address] [place] [phone] 03/11/2024 1:00 PM RECEIVER STOCKER Nurse Only [facility] in [place], [place] [address] [place] [address] Sheree Franz M.D. [address] [place] [phone] 03/11/2024 4:00 PM RECEIVER STOCKER Office Visit [facility] in [place], [place] [address] [place] [address] Idalia Hand M.D. [address] [place] [phone] 03/23/2024 1:30 PM RECEIVER STOCKER Appointment Department of Radiology, [facility], in [place], [place] [address] [place] [address] Glen Baker M.D. [address] [place] [phone] Discharge Disposition: Home or Self Care 03/23/2024 3:00 PM RECEIVER STOCKER Nurse Only Division of Nephrology and Hypertension in [place], [place] [address] [place] [address] Glen Baker M.D. [address] [place] [address] documented as of this encounter Results * Interpretation of Outside CT Chest (01/19/2024 8:57 AM RECEIVER STOCKER) Anatomical Region Laterality Modality Chest, Thoracic RST LOS, Tho racic ARZ LOS, Thoracic FLA LOS, Other, Body N/A Computed Tomography Impressions 01/20/2024 9:48 AM RECEIVER STOCKER A couple of small pulmonary nodules are present. These may be infectious/inflammatory, but are technically indeterminate. Consider a short interval (3 month) follow-up chest CT in further evaluation. Narrative 01/20/2024 9:48 AM RECEIVER STOCKER EXAM: INTERPRETATION OF OUTSIDE CT CHEST without [...] Pulmonary documented in this encounter Care Teams Grave Cleaner Relationship Specialty Start Date End Date None Reported, Pcp PCP - General Family Medicine 03/10/23 documented as of this encounter
--- OUTSIDE RECORDS SUMMARY | 2024-02-21 00:30 | XMS_ITS | Encounter Summary ---
Author Organization [facility] Address [address] [place] [address] Care Team Providers Care Education Officer Name Role Phone None Reported, Pcp Primary Care Provider Unavail able Reason for Referral * Behavioral Health (Routine) - Authorized Specialty Diagnoses / Procedures Referred By Contac t Referred To Contact Psychiatry / Psychiatry and Psychology Diagnoses Morbid Obesity Body Mass Index 40.0-44.9 Adult (HCC) Shahid Edge M.D. 200 [place] [address] Phone: tel: fax: [facility] Referral ID Status Reason Start Date Expiration Date V isits Requested Visits Authorized [id number] Authorized 12/24/2023 06/24/2025 1 1 Scheduling Instructions coordinated with future visit KTE 03/09-03/11 PAPER INSPECTOR * Outpatient (Routine) - Authorized Specialty Diagnoses / Procedures Referred By Contac t Referred To Contact Endocrinology Diagnoses Morbid Obesity Body Mass Index 40.0-44.9 Adult ([facility]) Shahid Edge M.D. 200 [place] [address] Phone: tel: fax: [facility] Referral ID Status Reason Start Date Expiration Date V isits Requested Visits Authorized [id number] Authorized 12/24/2023 06/24/2025 1 1 Scheduling Instructions coordinated with future visit KTE 03/09-03/11 PAPER INSPECTOR Encounter Details Date Type Department Care Team (Late st Contact Info) Description 12/23/2023 Orders Only Freddy martin [facility] for Transplantation and Clinical Regeneration in [place], [place] [address] [place] [address] Linnette Marti R.N., C.C.T.C. [address] [place] [address] Morbid Obesity Body Mass Index 40.0-44.9 Adult (HCC) (Primary Dx) Social History Tobacco Use Types Packs/Day Years Used Date Smoking Tobacco: Never Smokeless Tobacco: Never Alcohol Use Standard Drinks/Week Comments Never 0 (1 standard drink = 0.6 oz pur e alcohol) [facility] Utilities Answer Date Recorded In the past 12 months has [employer], gas, oil, or water [employer] threatened to shut off services in your [...] living situation today? I have a [facility] place to live 11/07/2023 Comments No Sex and Gender Information Value Date Recorded Sex Assigned at Female 03/13/2023 1:38 PM WALLPAPER INSPECTOR Legal Sex Female 10:08 PM WALLPAPER INSPECTOR Gender Identity Female 03/13/2023 1:42 PM WALLPAPER INSPECTOR Sexual Orientation Straight 03/13/2023 1: 42 PM WALLPAPER INSPECTOR documented as of this encounter Plan of Treatment Upcoming Encounters Date Type Department Care Team (Latest Contact Info) Description 03/02/2024 10:00 AM WALLPAPER INSPECTOR Telemedicine Department of Patient Education in [place], [place] [address] [place] [phone] Sheree Franz M.D. [address] [place] [phone] 03/05/2024 11:30 AM WALLPAPER INSPECTOR Clinical Communication Virtual Review in [place], [place] 200 [place] [address] 03/09/2024 6:40 AM WALLPAPER INSPECTOR Lab Department of Laboratory Medicine and Pathology, [facility], in [place], [place] [address] [place] [phone] Sheree Franz M.D. [address] [place] [phone] 03/09/2024 6:50 AM WALLPAPER INSPECTOR Lab Department of Laboratory Medicine and Pathology, [facility], in [place], [place] [address] [place] [address] Sheree Franz M.D. [address] [place] [phone] 03/09/2024 7:20 AM WALLPAPER INSPECTOR Ancillary Procedure Department of Cardiovascular Medicine in [place], [place] [address] [place] [phone] Sheree Franz M.D. [address] [place] [phone] 03/09/2024 9:00 AM WALLPAPER INSPECTOR Comprehensive Visit Division of Endocrinology in [place], [place] [address] [place] [phone] Jo Farris M.D. [address] [place] [phone] 03/09/2024 10:30 AM WALLPAPER INSPECTOR Comprehensive Visit [facility] for Transplantation and Clinical Regeneration in [place], [place] [address] [place] [phone] Idalia Hand M.D. [address] [place] [phone] 03/09/2024 12:00 PM WALLPAPER INSPECTOR Appointment Department of Radiology, [facility], in [place], [place] [address] [place] [address] Sheree Franz M.D. [address] [place] [phone] 03/09/2024 2:00 PM WALLPAPER INSPECTOR Virtual Visit Freddy Slade [facility] for Transplantation and Clinical Regeneration in [place], [place] [address] [place] [phone] Sheree Franz M.D. [address] [place] [phone] 03/09/2024 3:20 PM WALLPAPER INSPECTOR Appointment Department of Cardiovascular Diseases in [place], [place] [address] [place] [phone] Sheree Franz M.D. [address] [place] [phone] 03/10/2024 9:00 AM WALLPAPER INSPECTOR Comprehensive Visit [facility] Transplantation and Clinical Regeneration in [place], [place] [address] [place] [phone] Shahid Edge M.D. [address] [place] [phone] 03/10/2024 1:30 PM WALLPAPER INSPECTOR Appointment Division of Nephrology and Hypertension, [facility], in [place], [place] [address] [place] [phone] Nicholas Tracey, MAGY, C.N.P., M.S.N. [address] [place] [phone] 03/11/2024 8:00 AM WALLPAPER INSPECTOR Clinical Support [facility] for Transplantation and Clinical Regeneration in [place], [place] [address] [place] [phone] Sheree Franz M.D. [address] [place] [phone] Alyse Chang M.S.W., L.I.C.S.W. [address] [place] [phone] 03/11/2024 10:00 AM WALLPAPER INSPECTOR Office [facility] in [place], [place] [address] [place] [address] Sheree Franz M.D. [address] [place] [phone] 03/11/2024 11:00 AM WALLPAPER INSPECTOR Comprehensive Visit [facility] in [place], [place] [address] [place] [address] Sheree Franz M.D. [address] [place] [phone] 03/11/2024 1:00 PM WALLPAPER INSPECTOR Nurse Only [facility] Transplantation and Clinical Regeneration in [place], [place] [address] [place] [address] Sheree Franz M.D. [address] [place] [phone] 03/11/2024 4:00 PM WALLPAPER INSPECTOR Office Visit [facility] Transplantation and Clinical Regeneration in [place], [place] [address] [place] [address] Idalia Hand M.D. [address] [place] [phone] 03/23/2024 1:30 PM WALLPAPER INSPECTOR Appointment Department of Radiology, [facility], in [place], [place] [address] [place] [address] Glen Baker M.D. [address] [place] [phone] Discharge Disposition: Home or Self Care 03/23/2024 3:00 PM WALLPAPER INSPECTOR Nurse Only Division of Nephrology and Hypertension in [place], [place] 200 [place] [address] Glen Baker M.D. 200 [place] [address] Scheduled Referrals Name Type Priority Associated Diagnoses [...] Primary documented in this encounter Care Teams Education Officer Relationship Specialty Start Date End Date None Reported, Pcp PCP - General Family Medicine 03/10/23 documented as of this encounter
--- OUTSIDE RECORDS SUMMARY | 2024-02-21 00:30 | XMS_ITS | Encounter Summary ---
Author Organization [facility] Address [address] [place] [address] Care Team Providers Care Digital Solution Architect Name Role Phone None Reported, Pcp Primary Care Provider Unavail able Reason for Referral * MRI/CAT/PET Scan (Routine) - Closed Specialty Diagnoses / Procedures Referred By Contac t Referred To Contact Radiology Diagnoses Nodule Pulmonary Procedures CT Chest without IV Contrast Jo Root M.D., Ph.D. [address] [place] [phone] Phone: tel: fax: [facility] Referral ID Status Reason Start Date Expiration Date Visits Re quested Visits Authorized [id number] Closed 01/21/2024 01/20/2025 1 1 OVEMENT AUDITOR Encounter Details Date Type Department Care Team (Late st Contact Info) Description 01/21/2024 Orders Only Division of Nephrology and Hypertension in [place], [place] [address] [place] [phone] Jo Root M.D., Ph.D. [address] [place] [phone] Nodule Pulmonary (Primary Dx) Social History Tobacco [...] a [facility] 11/07/2023 Comments No Sex and Gender Information Value Date Recorded Sex Assigned at Female 03/13/2023 1:38 PM IMPROVEMENT AUDITOR Legal Sex Female 10:08 PM IMPROVEMENT AUDITOR Gender Identity Female 03/13/2023 1:42 PM IMPROVEMENT AUDITOR Sexual Orientation Straight 03/13/2023 1: 42 PM IMPROVEMENT AUDITOR documented as of this encounter Plan of Treatment Upcoming Encounters Date Type Department Care Team (Latest Contact Info) Description 03/02/2024 10:00 AM IMPROVEMENT AUDITOR Telemedicine Department of Patient Education in [place], [place] [address] [place] [phone] Sheree Franz M.D. [address] [place] [phone] 03/05/2024 11:30 AM IMPROVEMENT AUDITOR Clinical Communication Virtual Review in [place], [place] 200 [place] [address] 03/09/2024 6:40 AM IMPROVEMENT AUDITOR Lab Department of Laboratory Medicine and Pathology, [address] [phone] Sheree Franz M.D. [address] [place] [phone] 03/09/2024 6:50 AM IMPROVEMENT AUDITOR Lab Department of Laboratory Medicine and Pathology, [facility] in [place], [place] [address] [place] [phone] Sheree Franz M.D. [address] [place] [phone] 03/09/2024 7:20 AM IMPROVEMENT AUDITOR Ancillary Procedure Department of Cardiovascular Medicine in [address] [address] Sheree Franz M.D. [address] [place] [phone] 03/09/2024 9:00 AM IMPROVEMENT AUDITOR Comprehensive Visit Division of Endocrinology in [place], [place] [address] [place] [address] Jo Farris M.D. [address] [place] [address] 03/09/2024 10:30 AM IMPROVEMENT AUDITOR Comprehensive Visit Freddy [facility] for Transplantation and Clinical Regeneration in [place], [place] [address] [place] [address] Idalia Hand M.D. [address] [place] [phone] 03/09/2024 12:00 PM IMPROVEMENT AUDITOR Appointment Department of Radiology, [facility], in [place], [place] [address] [place] [address] Sheree Franz M.D. [address] [place] [address] 03/09/2024 2:00 PM IMPROVEMENT AUDITOR Virtual Visit Freddy martin [facility] for Transplantation and Clinical Regeneration in [place], [place] [address] [place] [address] Sheree Franz M.D. [address] [place] [phone] 03/09/2024 3:20 PM IMPROVEMENT AUDITOR Appointment Department of Cardiovascular Diseases in [place], [place] [address] [place] [address] Sheree Franz M.D. [address] [place] [phone] 03/10/2024 9:00 AM IMPROVEMENT AUDITOR Comprehensive Visit Freddy martin [facility] for Transplantation and Clinical Regeneration in [place], [place] [address] [place] [address] Shahid Edge M.D. [address] [place] [phone] 03/10/2024 1:30 PM IMPROVEMENT AUDITOR Appointment Division of Nephrology and Hypertension, [facility], in [place], [place] [address] [place] [phone] Nicholas Tracey, MAGY, C.N.P., M.S.N. [address] [place] [phone] 03/11/2024 8:00 AM IMPROVEMENT AUDITOR Clinical Support [facility] in [place], [place] [address] [place] [address] Sheree Franz M.D. [address] [place] [phone] Alyse Chang M.S.Kayla., L.I.C.S.W. [address] [place] [phone] 03/11/2024 10:00 AM IMPROVEMENT AUDITOR Office Visit [facility] for Transplantation and Clinical Regeneration in [place], [place] [address] [place] [address] Sheree Franz M.D. [address] [place] [phone] 03/11/2024 11:00 AM IMPROVEMENT AUDITOR Comprehensive Visit Freddy martin [facility] for Transplantation and Clinical Regeneration in [place], [place] [address] [place] [address] Sheree Franz M.D. [address] [place] [phone] 03/11/2024 1:00 PM IMPROVEMENT AUDITOR Nurse Only [facility] Transplantation and Clinical Regeneration in [place], [place] [address] [place] [address] Sheree Franz M.D. [address] [place] [phone] 03/11/2024 4:00 PM IMPROVEMENT AUDITOR Office Visit [facility] Transplantation and Clinical Regeneration in [place], [place] [address] [place] [address] Idalia Hand M.D. [address] [place] [phone] 03/23/2024 1:30 PM IMPROVEMENT AUDITOR Appointment Department of Radiology, [facility], in [place], [place] [address] [place] [address] Glen Baker M.D. [address] [place] [phone] Discharge Disposition: Home or Self Care 03/23/2024 3:00 PM IMPROVEMENT AUDITOR Nurse Only Division of Nephrology and Hypertension in [place], [place] [address] [place] [phone] Glen Baker M.D. [address] [place] [phone] documented as of this encounter Results * CT Chest without IV Contrast (02/01/2024 11:07 AM IMPROVEMENT AUDITOR) Anatomical Region Laterality Modality Chest, Thoracic RST LOS, Tho racic ARZ LOS, Thoracic FLA LOS N/A Computed Tomography, Compute d Tomography Impressions 02/01/2024 4:08 PM IMPROVEMENT AUDITOR Nearly resolved prior right upper lobe semisolid nodule, which was likely infectious/inflammatory. No concerning pulmonary nodules. Narrative 02/01/2024 4:08 PM IMPROVEMENT AUDITOR EXAM: CT CHEST WITHOUT IV CONTRAST COMPARISON: [...] spine. Mild hepatic steatosis. Cholecystectomy. Procedure Note Tersea Potter M.D. - 02/01/2024 EXAM: CT CHEST [...] Pulmonary documented in this encounter Care Teams Digital Solution Architect Relationship Specialty Start Date End Date None Reported, Pcp PCP - General Family Medicine 03/10/23 documented as of this encounter
--- OUTSIDE RECORDS SUMMARY | 2024-02-21 00:30 | XMS_ITS | Encounter Summary ---
Author Organization [facility] Address [address] [place] [address] Care Team Providers Care Edge Sawyer Name Role Phone None Reported, Pcp Primary Care Provider Unavail able Encounter Details Date Type Department Care Team (Latest Contact Info) Description 12/18/2023 Clinical Communication Freddy Diaz [place] for Transplantation and Clinical Regeneration in [place], [place] [address] [place] [address] Nataliia Jackson, R.N. Social History Tobacco Use Types Packs/Day Years Used Date Smoking Tobacco: Never Smokeless Tobacco: Never Alcohol Use Standard Drinks/Week Comments Never 0 (1 standard drink = 0.6 oz pur e alcohol) [facility] Utilities Answer Date Recorded In the past 12 months has e [employer], gas, oil, or water [employer] threatened to shut off services in your [...] Sex Assigned at Female 03/13/2023 1:38 PM CHIEF POWER DISPATCHER Legal Sex Female 10:08 PM CHIEF POWER DISPATCHER Gender Identity Female 03/13/2023 1:42 PM CHIEF POWER DISPATCHER Sexual Orientation Straight 03/13/2023 1: 42 PM CHIEF POWER DISPATCHER documented as of this encounter Plan of Treatment Upcoming Encounters Date Type Department Care Team (Latest Contact Info) Description 03/02/2024 10:00 AM CHIEF POWER DISPATCHER Telemedicine Department of Patient Education in [place], [place] [address] [place] [address] Sheree Franz M.D. [address] [place] [address] 03/05/2024 11:30 AM CHIEF POWER DISPATCHER Clinical Communication Virtual Review in [place], [place] [address] [place] [address] 03/09/2024 6:40 AM CHIEF POWER DISPATCHER Lab Department of Laboratory Medicine and Pathology, [facility] in [place], [place] [address] [place] [phone] Sheree Franz M.D. [address] [place] [phone] 03/09/2024 6:50 AM CHIEF POWER DISPATCHER Lab Department of Laboratory Medicine and Pathology, [facility], in [place], [place] [address] [place] [phone] Sheree Franz M.D. [address] [place] [phone] 03/09/2024 7:20 AM CHIEF POWER DISPATCHER Ancillary Procedure Department of Cardiovascular Medicine in [place], [place] [address] [place] [phone] Sheree Franz M.D. [address] [place] [phone] 03/09/2024 9:00 AM CHIEF POWER DISPATCHER Comprehensive Visit Division of Endocrinology in [place], [place] [address] [place] [phone] Jo Farris M.D. [address] [place] [phone] 03/09/2024 10:30 AM CHIEF POWER DISPATCHER [facility] Trans[facility] and Clinical Regeneration in [place], [place] [address] [place] [phone] Idalia Hand M.D. [address] [place] [phone] 03/09/2024 12:00 PM CHIEF POWER DISPATCHER Appointment Department of Radiology, [facility], in [place], [place] [address] [place] [address] Sheree Franz M.D. [address] [place] [phone] 03/09/2024 2:00 PM CHIEF POWER DISPATCHER Virtual Visit [facility] Transplantation and Clinical Regeneration in [place], [place] [address] [place] [address] Sheree Franz M.D. [address] [place] [phone] 03/09/2024 3:20 PM CHIEF POWER DISPATCHER Appointment Department of Cardiovascular Diseases in [place], [place] [address] [place] [address] Sheree Franz M.D. [address] [place] [phone] 03/10/2024 9:00 AM CHIEF POWER DISPATCHER Comprehensive Visit [facility] Transplantation and Clinical Regeneration in [place], [place] [address] [place] [address] Shahid Edge M.D. [address] [place] [phone] 03/10/2024 1:30 PM CHIEF POWER DISPATCHER Appointment Division of Nephrology and Hypertension, [facility], in [place], [place] [address] [place] [phone] Nicholas Tracey, HELP DESK MANAGER, C.N.P., M.S.N. [address] [place] [phone] 03/11/2024 8:00 AM CHIEF POWER DISPATCHER Clinical Support [facility] for Transplantation and Clinical Regeneration in [place], [place] [address] [place] [address] Sheree Franz M.D. [address] [place] [phone] Alyse Chang M.S.W., L.I.C.S.W. [address] [place] [address] 03/11/2024 10:00 AM CHIEF POWER DISPATCHER Office [facility] Trans[facility] and Clinical Regeneration in [place], [place] [address] [place] [address] Sheree Franz M.D. [address] [place] [phone] 03/11/2024 11:00 AM CHIEF POWER DISPATCHER Comprehensive Visit Freddy Slade [facility] Transplantation and Clinical Regeneration in [place], [place] [address] [place] [address] Sheree Franz M.D. [address] [place] [phone] 03/11/2024 1:00 PM CHIEF POWER DISPATCHER Nurse Only [facility] Clinical Regeneration in [place], [place] [address] [place] [address] Sheree Franz M.D. [address] [place] [phone] 03/11/2024 4:00 PM CHIEF POWER DISPATCHER Office Visit [facility] Transplantation and Clinical Regeneration in [place], [place] [address] [place] [address] Idalia Hand M.D. [address] [place] [address] 03/23/2024 1:30 PM CHIEF POWER DISPATCHER Appointment Department of Radiology, [facility], in [place], [place] [address] [place] [address] Glen Baker M.D. [address] [place] [address] Discharge Disposition: Home or Self Care 03/23/2024 3:00 PM CHIEF POWER DISPATCHER Nurse Only Division of Nephrology and Hypertension in [place], [place] [address] [place] [address] Glen Baker M.D. [address] [place] [address] documented as of this encounter Visit Diagnoses Not on filedocumented in this encounter Care Teams Edge Sawyer Relationship Specialty Start Date End Date None Reported, Pcp PCP - General Family Medicine 03/10/23 documented as of this encounter
--- OUTSIDE RECORDS SUMMARY | 2024-02-21 00:30 | XMS_ITS | Encounter Summary ---
Author Organization [facility] Address [address] [place] [address] Care Team Providers Care Road Builder Name Role Phone None Reported, Pcp Primary Care Provider Unavail able Reason for Visit * Reason Onset Date Comments Appointment 12/23/2023 [facility] Vis it Encounter Details Date Type Department Care Team (Latest Contact Info) Description 12/23/2023 Clinical Communication Freddy martin [facility] for Transplantation and Clinical Regeneration in [place], [place] [address] [place] [address] Linnette Marti R.N., C.C.T.C. [address] [place] [phone] Appointment ([facility] Visit) Social History Tobacco Use Types Packs/Day Years Used Date Smoking Tobacco: Never Smokeless Tobacco: Never Alcohol Use Standard Drinks/Week Comments Never 0 (1 standard drink = 0.6 oz pur e alcohol) [facility] Utilities Answer Date Recorded [...] your living situation today? [facility] 11/07/2023 Comments No Sex and Gender Information Value Date Recorded Sex Assigned at Female 03/13/2023 1:38 PM ACETYLENE BURNER Legal Sex Female 10:08 PM ACETYLENE BURNER Gender Identity Female 03/13/2023 1:42 PM ACETYLENE BURNER Sexual Orientation Straight 03/13/2023 1: 42 PM ACETYLENE BURNER documented as of this encounter Plan of Treatment Upcoming Encounters Date Type Department Care Team (Latest Contact Info) Description 03/02/2024 10:00 AM ACETYLENE BURNER Telemedicine Department of Patient Education in [place], [place] [address] [place] [phone] Sheree Franz M.D. [address] [place] [phone] 03/05/2024 11:30 AM ACETYLENE BURNER Clinical Communication Virtual Review in [place], [place] 200 [place] [address] 03/09/2024 6:40 AM ACETYLENE BURNER Lab Department of Laboratory Medicine and Pathology, [facility] in [place], [place] [address] [place] [phone] Sheree Franz M.D. [address] [place] [phone] 03/09/2024 6:50 AM ACETYLENE BURNER Lab Department of Laboratory Medicine and Pathology, [facility] in [place], [place] [address] [place] [phone] Sheree Franz M.D. [address] [place] [phone] 03/09/2024 7:20 AM ACETYLENE BURNER Ancillary Procedure Department of Cardiovascular Medicine in [place], [place] [address] [place] [phone] Sheree Franz M.D. [address] [place] [phone] 03/09/2024 9:00 AM ACETYLENE BURNER Comprehensive Visit Division of Endocrinology in [place], [place] [address] [place] [phone] Jo Farris M.D. [address] [place] [phone] 03/09/2024 10:30 AM ACETYLENE BURNER [facility] in [place], [place] [address] [place] [address] Idalia Hand M.D. [address] [place] [phone] 03/09/2024 12:00 PM ACETYLENE BURNER Appointment Department of Radiology, [facility], in [place], [place] [address] [place] [address] Sheree Franz M.D. [address] [place] [address] 03/09/2024 2:00 PM ACETYLENE BURNER Virtual Visit Freddy Diaz [place] for Transplantation and Clinical Regeneration in [place], [place] [address] [place] [address] Sheree Franz M.D. [address] [place] [phone] 03/09/2024 3:20 PM ACETYLENE BURNER Appointment Department of Cardiovascular Diseases in [place], [place] [address] [place] [address] Sheree Franz M.D. [address] [place] [phone] 03/10/2024 9:00 AM ACETYLENE BURNER Comprehensive Visit Freddy Diaz [place] for Transplantation and Clinical Regeneration in [place], [place] [address] [place] [address] Shahid Edge M.D. [address] [place] [phone] 03/10/2024 1:30 PM ACETYLENE BURNER Appointment Division of Nephrology and Hypertension, [facility], in [place], [place] [address] [place] [address] Nicholas Tracey, SUBSURFACE AUGMENTEE ELINT OPERATOR, C.N.P., M.S.N. [address] [place] [phone] 03/11/2024 8:00 AM ACETYLENE BURNER Clinical Support Freddy martin [facility] for Transplantation and Clinical Regeneration in [place], [place] [address] [place] [address] Sheree Franz M.D. [address] [place] [phone] Alyse Chang M.S.W., L.I.C.S.W. [address] [place] [phone] 03/11/2024 10:00 AM ACETYLENE BURNER Office Visit Freddy [facility] Transplantation and Clinical Regeneration in [place], [place] [address] [place] [address] Sheree Franz M.D. [address] [place] [phone] 03/11/2024 11:00 AM ACETYLENE BURNER Comprehensive [facility] in [place], [place] [address] [place] [address] Sheree Franz M.D. [address] [place] [phone] 03/11/2024 1:00 PM ACETYLENE BURNER Nurse Only Freddy martin [facility] for Transplantation and Clinical Regeneration in [place], [place] [address] [place] [address] Sheree Franz M.D. [address] [place] [phone] 03/11/2024 4:00 PM ACETYLENE BURNER Office Visit Freddy martin [facility] for Transplantation and Clinical Regeneration in [place], [place] [address] [place] [address] Idalia Hand M.D. [address] [place] [phone] 03/23/2024 1:30 PM ACETYLENE BURNER Appointment Department of Radiology, [facility], in [place], [place] [address] [place] [address] Glen Baker M.D. [address] [place] [phone] Discharge Disposition: Home or Self Care 03/23/2024 3:00 PM ACETYLENE BURNER Nurse Only Division of Nephrology and Hypertension in [place], [place] [address] [place] [address] Glen Baker M.D. [address] [place] [phone] documented as of this encounter Visit Diagnoses Not on filedocumented in this encounter Care Teams Road Builder Relationship Specialty Start Date End Date None Reported, Pcp PCP - General Family Medicine 03/10/23 documented as of this encounter
--- OUTSIDE RECORDS SUMMARY | 2024-02-21 00:30 | XMS_ITS | Encounter Summary ---
Author Organization [facility] Address [address] [place] [address] Care Team Providers Care Residential Sales Executive Name Role Phone None Reported, Pcp Primary Care Provider Unavail able Reason for Visit * Reason Comments Phone Contact Encounter Details Date Type Department Care Team (Latest Contact Info) Description 12/16/2023 Clinical Communication Division of Nephrology and Hypertension in [place], [place] [address] [place] [address] Jo Root M.D., Ph.D. [address] [place] [phone] Phone Contact Social History Tobacco Use Types Packs/Day Years Used Date Smoking Tobacco: Never Smokeless Tobacco: Never Alcohol Use Standard Drinks/Week Comments Never 0 (1 standard drink = 0.6 oz pur e alcohol) [facility] Utilities Answer Date Recorded In the past 12 months has [employer], gas, oil, or water [employer] threatened to shut off services in your [...] your living situation today? I have a [facility] place to live 11/07/2023 Comments No Sex and Gender Information Value Date Recorded Sex Assigned at Female 03/13/2023 1:38 PM MEDICAL ASSISTANT INTERNAL MEDICINE Legal Sex Female 10:08 PM MEDICAL ASSISTANT INTERNAL MEDICINE Gender Identity Female 03/13/2023 1:42 PM MEDICAL ASSISTANT INTERNAL MEDICINE Sexual Orientation Straight 03/13/2023 1: 42 PM MEDICAL ASSISTANT INTERNAL MEDICINE documented as of this encounter Plan of Treatment Upcoming Encounters Date Type Department Care Team (Latest Contact Info) Description 03/02/2024 10:00 AM MEDICAL ASSISTANT INTERNAL MEDICINE Telemedicine Department of Patient Education in [place], [place] [address] [place] [address] Sheree Franz M.D. [address] [place] [phone] 03/05/2024 11:30 AM MEDICAL ASSISTANT INTERNAL MEDICINE Clinical Communication Virtual Review in [place], [place] 200 [place] [address] 03/09/2024 6:40 AM MEDICAL ASSISTANT INTERNAL MEDICINE Lab Department of Laboratory Medicine and Pathology, [facility] in [place], [place] [address] [place] [phone] Sheree Franz M.D. [address] [place] [phone] 03/09/2024 6:50 AM MEDICAL ASSISTANT INTERNAL MEDICINE Lab Department of Laboratory Medicine and Pathology, [facility] in [place], [place] [address] [place] [phone] Sheree Franz M.D. [address] [place] [phone] 03/09/2024 7:20 AM MEDICAL ASSISTANT INTERNAL MEDICINE Ancillary Procedure Department of Cardiovascular Medicine in [place], [place] [address] [place] [phone] Sheree Franz M.D. [address] [place] [phone] 03/09/2024 9:00 AM MEDICAL ASSISTANT INTERNAL MEDICINE Comprehensive Visit Division of Endocrinology in [place], [place] [address] [place] [phone] Jo Farris M.D. [address] [place] [phone] 03/09/2024 10:30 AM MEDICAL ASSISTANT INTERNAL MEDICINE Comprehensive Visit [facility] for Transplantation and Clinical Regeneration in [place], [place] [address] [place] [phone] Idalia Hand M.D. [address] [place] [address] 03/09/2024 12:00 PM MEDICAL ASSISTANT INTERNAL MEDICINE Appointment Department of Radiology, [facility], in [place], [place] [address] [place] [address] Sheree Franz M.D. [address] [place] [phone] 03/09/2024 2:00 PM MEDICAL ASSISTANT INTERNAL MEDICINE Virtual Visit Freddy Diaz [place] for Transplantation and Clinical Regeneration in [place], [place] [address] [place] [address] Sheree Franz M.D. [address] [place] [phone] 03/09/2024 3:20 PM MEDICAL ASSISTANT INTERNAL MEDICINE Appointment Department of Cardiovascular Diseases in [place], [place] [address] [place] [address] Sheree Franz M.D. [address] [place] [phone] 03/10/2024 9:00 AM MEDICAL ASSISTANT INTERNAL MEDICINE Comprehensive [facility] in [place], [place] [address] [place] [address] Shahid Edge M.D. [address] [place] [phone] 03/10/2024 1:30 PM MEDICAL ASSISTANT INTERNAL MEDICINE Appointment Division of Nephrology and Hypertension, [facility], in [place], [place] [address] [place] [address] Nicholas Tracey, TENSIONING MACHINE OPERATOR, C.N.P., M.S.N. [address] [place] [phone] 03/11/2024 8:00 AM MEDICAL ASSISTANT INTERNAL MEDICINE Clinical Support [facility] in [place], [place] [address] [place] [address] Sheree Franz M.D. [address] [place] [phone] Alyse Chang M.SVirginia., L.IJanieC.S.W. [address] [place] [phone] 03/11/2024 10:00 AM MEDICAL ASSISTANT INTERNAL MEDICINE Office Visit Freddy Berlin [facility] Transplantation and Clinical Regeneration in [place], [place] [address] [place] [address] Sheree Franz M.D. [address] [place] [phone] 03/11/2024 11:00 AM MEDICAL ASSISTANT INTERNAL MEDICINE Comprehensive Visit Freddy Slade [facility] Transplantation and Clinical Regeneration in [place], [place] [address] [place] [address] Sheree Franz M.D. [address] [place] [phone] 03/11/2024 1:00 PM MEDICAL ASSISTANT INTERNAL MEDICINE Nurse Only [facility]dy [facility] for Transplantation and Clinical Regeneration in [place], [place] [address] [place] [address] Sheree Franz M.D. [address] [place] [phone] 03/11/2024 4:00 PM MEDICAL ASSISTANT INTERNAL MEDICINE Office [facility] in [place], [place] [address] [place] [address] Idalia Hand M.D. [address] [place] [address] 03/23/2024 1:30 PM MEDICAL ASSISTANT INTERNAL MEDICINE Appointment Department of Radiology, [facility], in [place], [place] [address] [place] [address] Glen Baker M.D. [address] [place] [phone] Discharge Disposition: Home or Self Care 03/23/2024 3:00 PM MEDICAL ASSISTANT INTERNAL MEDICINE Nurse Only Division of Nephrology and Hypertension in [place], [place] [address] [place] [address] Glen Baker M.D. [address] [place] [phone] documented as of this encounter Visit Diagnoses Not on filedocumented in this encounter Care Teams Residential Sales Executive Relationship Specialty Start Date End Date None Reported, Pcp PCP - General Family Medicine 03/10/23 documented as of this encounter
--- OUTSIDE RECORDS SUMMARY | 2024-02-21 00:30 | XMS_ITS | Encounter Summary ---
Author Organization [facility] Address [address] [place] [address] Care Team Providers Care Electrical Integrator Name Role Phone None Reported, Pcp Primary Care Provider Unavail able Reason for Referral * Outpatient (Routine) - Closed Specialty Diagnoses / Procedures Referred By Crow olivo Referred To Contact Radiology Diagnoses Complication Dialysis Catheter Subsequent Chronic Failure Renal End Stage Renal Disease Dialysis Dependent (HCC) Procedures IR Dialysis / High Flow Catheter Exchange Nicholas Tracey APRN, C.N.P., M.S.N. [address] [place] [phone] Phone: tel: fax: [facility] Referral ID Status Reason Start Date Expiration Date Visits Re quested Visits Authorized [id number] Closed 01/21/2024 01/20/2025 1 1 OMER SERVICES SUPERVISOR Encounter Details Date Type Department Care Team (Late st Contact Info) Description 01/21/2024 Orders Only Division of Nephrology and Hypertension, [facility], in [place], [place] [address] [place] [phone] Nicholas Tracey APRN, C.N.P., M.S.N. [address] [place] [phone] Complication Dialysis Catheter Subsequent (Primary Dx); Chronic Failure Renal End Stage Renal Disease Dialysis Dependent (HCC) Social History Tobacco Use Types Packs/Day Years Used Date Smoking Tobacco: Never Smokeless Tobacco: Never Alcohol Use Standard Drinks/Week Comments Never 0 (1 standard drink = 0.6 oz pur e alcohol) [facility] Utilities Answer Date Recorded In the past 12 months has e [employer], gas, oil, or water [employer] threatened to shut off services in your [...] living situation today? I have a [facility] place to live 11/07/2023 Comments No Sex and Gender Information Value Date Recorded Sex Assigned at Female 03/13/2023 1:38 PM CUSTOMER SERVICES SUPERVISOR Legal Sex Female 10:08 PM CUSTOMER SERVICES SUPERVISOR Gender Identity Female 03/13/2023 1:42 PM CUSTOMER SERVICES SUPERVISOR Sexual Orientation Straight 03/13/2023 1: 42 PM CUSTOMER SERVICES SUPERVISOR documented as of this encounter Plan of Treatment Upcoming Encounters Date Type Department Care Team (Latest Contact Info) Description 03/02/2024 10:00 AM CUSTOMER SERVICES SUPERVISOR Telemedicine Department of Patient Education in [address] [phone] Sheree Frnaz M.D. [address] [place] [phone] 03/05/2024 11:30 AM CUSTOMER SERVICES SUPERVISOR Clinical Communication Virtual Review in [place], [place] 200 [place] [address] 03/09/2024 6:40 AM CUSTOMER SERVICES SUPERVISOR Lab Department of Laboratory Medicine and Pathology, [place], [place] [address] [place] [phone] Sheree Franz M.D. [address] [place] [phone] 03/09/2024 6:50 AM CUSTOMER SERVICES SUPERVISOR Lab Department of Laboratory Medicine and Pathology, [facility] in [place], [place] [address] [place] [phone] Sheree Franz M.D. [address] [place] [phone] 03/09/2024 7:20 AM CUSTOMER SERVICES SUPERVISOR Ancillary Procedure Department of Cardiovascular Medicine in [place], [place] [address] [place] [phone] Sheree Franz M.D. [address] [place] [phone] 03/09/2024 9:00 AM CUSTOMER SERVICES SUPERVISOR Comprehensive Visit Division of Endocrinology in [place], [place] [address] [place] [phone] Jo Farris M.D. [address] [place] [phone] 03/09/2024 10:30 AM CUSTOMER SERVICES SUPERVISOR Comprehensive Visit Freddy Diaz [facility] in [place], [place] [address] [place] [address] Idalia Hand M.D. [address] [place] [phone] 03/09/2024 12:00 PM CUSTOMER SERVICES SUPERVISOR Appointment Department of Radiology, [facility], in [place], [place] [address] [place] [phone] Sheree Franz M.D. [address] [place] [phone] 03/09/2024 2:00 PM CUSTOMER SERVICES SUPERVISOR Virtual Visit Freddy Diaz [facility] in [place], [place] [address] [place] [phone] Sheree Franz M.D. [address] [place] [phone] 03/09/2024 3:20 PM CUSTOMER SERVICES SUPERVISOR Appointment Department of Cardiovascular Diseases in [place], [place] [address] [place] [address] Sheree Franz M.D. [address] [place] [phone] 03/10/2024 9:00 AM CUSTOMER SERVICES SUPERVISOR Comprehensive [facility] in [place], [place] [address] [place] [address] Shahid Edge M.D. [address] [place] [phone] 03/10/2024 1:30 PM CUSTOMER SERVICES SUPERVISOR Appointment Division of Nephrology and Hypertension, [facility], in [place], [place] [address] [place] [address] Nicholas Tracey APRN, C.N.P., M.S.N. [address] [place] [phone] 03/11/2024 8:00 AM CUSTOMER SERVICES SUPERVISOR Clinical Support [facility] Transplantation and Clinical Regeneration in [place], [place] [address] [place] [address] Sheree Franz M.D. [address] [place] [phone] Alyse Chang M.SInessa, L.I.C.S.W. [address] [place] [phone] 03/11/2024 10:00 AM CUSTOMER SERVICES SUPERVISOR [facility] in [place], [place] [address] [place] [address] Sheree Franz M.D. [address] [place] [phone] 03/11/2024 11:00 AM CUSTOMER SERVICES SUPERVISOR [facility] in [place], [place] [address] [place] [address] Sheree Franz M.D. [address] [place] [phone] 03/11/2024 1:00 PM CUSTOMER SERVICES SUPERVISOR Nurse Only Freddy martin [facility] Transplantation and Clinical Regeneration in [place], [place] [address] [place] [phone] Sheree Franz M.D. [address] [place] [phone] 03/11/2024 4:00 PM CUSTOMER SERVICES SUPERVISOR Office Visit Freddy martin [facility] Transplantation and Clinical Regeneration in [place], [place] [address] [place] [phone] Idalia Hand M.D. [address] [place] [phone] 03/23/2024 1:30 PM CUSTOMER SERVICES SUPERVISOR Appointment Department of Radiology, [facility], in [place], [place] [address] [place] [phone] Glen Baker M.D. [address] [place] [phone] Discharge Disposition: Home or Self Care 03/23/2024 3:00 PM CUSTOMER SERVICES SUPERVISOR Nurse Only Division of Nephrology and Hypertension in [place], [place] [address] [place] [phone] Glen Baker M.D. [address] [place] [phone] documented as of this encounter Results * IR Dialysis / High Flow Catheter Exchange (01/21/2024 2:53 PM CUSTOMER SERVICES SUPERVISOR) Anatomical Region Laterality Modality Body, Vascular Interventiona l RST LOS, Vascular Interventional ARZ LOS, Vascular Interventional FLA LOS N/A X-Ray Angiography Impressions 01/21/2024 3:22 PM CUSTOMER SERVICES SUPERVISOR Uncomplicated exchange of a partially occluded [...] catheter position. NR Narrative 01/21/2024 3:22 PM CUSTOMER SERVICES SUPERVISOR EXAM: IR DIALYSIS / HIGH FLOW CATHETER EXCHANGE CLINICAL HISTORY: Occluded right internal jugular tunnel dialysis catheter. TECHNIQUE: The right internal jugular Pristine brand tunneled dialysis catheter was prepped and draped in sterile fashion. Savings Teller film shows expected position. Preliminary aspiration and [...] was prepped and draped in sterile fashion. Savings Teller film showsexpected position. Preliminary aspiration and flushing [...] (HCC) documented in this encounter Care Teams Electrical Integrator Relationship Specialty Start Date End Date None Reported, Pcp PCP - General Family Medicine 03/10/23 documented as of this encounter
--- OUTSIDE RECORDS SUMMARY | 2024-02-21 00:30 | XMS_ITS ---
Author Organization [facility] Address [address] [place] [address] Care Team Providers Care Oil Rag Washer Name Role Phone None Reported, Pcp Primary Care Provider Unavail able Transplant Episode Kidney Candidate [facility] ([place], [place]) - [facility] Referred on 09/10/2023 Marked as Active on 09/10/2023 Kidney CoordinatorVandana Lauren R.N., C.C.T.C. Fax: N/A Email: [email or web address] Scores Score Value Updated Exceptions/Reas ons CPRA Not available EPTS (Calc) 16 02/21/2024 Care Team Name Role Phone Fax Email Vandana Lauren R.N., C.C.T.C. Kidney Coordinator [phone] N/A Zion [email or web address] Idalia Hand M.D. Transplant Sat Math Tutor [phone] Hollie [email or web address] Jo Berg M.D., Ph.D. Referring Provider [phone] Xander [email or web address] Shahid Edge M.D. Transplant Surgeon [phone] [email or web address] Pre-Transplant Referred: 09/10/2023 Appointments (01/21/2024 - 03/23/2024) When With Visit Type Description 03/02/2024 PTE [...] Comments Center 04/18/2023 In-center Hemodialysis MWSivakumar Zamarripa [facility] Information Center Phone Fax Address [facility] [phone] [place] [address]
--- OUTSIDE RECORDS SUMMARY | 2024-02-21 00:30 | XMS_ITS | Encounter Summary ---
Author Organization [facility] Address [address] [place] [address] Care Team Providers Care Credit Card Analyst Name Role Phone None Reported, Pcp Primary Care Provider Unavail able Encounter Details Date Type Department Care Team (Latest Contact Info) Description 01/19/2024 8:55 AM BOAT FUELER Ancillary Procedure Department of Radiology in [place], [place] [address] [place] [address] Aleks Velasquez Jr., M.D. [address] [place] [phone] [facility] Social History Tobacco Use Types Packs/Day Years Used Date Smoking Tobacco: Never Smokeless Tobacco: Never Alcohol Use Standard Drinks/Week Comments Never 0 (1 standard drink = 0.6 oz pur e alcohol) [facility] Utilities Answer Date Recorded In the past 12 months has [employer], gas, oil, or water [employer] threatened to shut off services in your [...] [facility] 11/07/2023 Comments No Sex and Gender Information Value Date Recorded Sex Assigned at Female 03/13/2023 1:38 PM BOAT FUELER Legal Sex Female 10:08 PM BOAT FUELER Gender Identity Female 03/13/2023 1:42 PM BOAT FUELER Sexual Orientation Straight 03/13/2023 1: 42 PM BOAT FUELER documented as of this encounter Plan of Treatment Upcoming Encounters Date Type Department Care Team (Latest Contact Info) Description 03/02/2024 10:00 AM BOAT FUELER Telemedicine Department of Patient Education in [place], [place] [address] [place] [address] Sheree Franz M.D. [address] [place] [phone] 03/05/2024 11:30 AM BOAT FUELER Clinical Communication Virtual Review in [place], [place] 200 [place] [address] 03/09/2024 6:40 AM BOAT FUELER Lab Department of Laboratory Medicine and Pathology, [facility] in [place], [place] [address] [place] [phone] Sheree Franz M.D. [address] [place] [phone] 03/09/2024 6:50 AM BOAT FUELER Lab Department of Laboratory Medicine and Pathology, [facility] in [place], [place] [address] [place] [phone] Sheree Franz M.D. [address] [place] [phone] 03/09/2024 7:20 AM BOAT FUELER Ancillary Procedure Department of Cardiovascular Medicine in [address] [phone] Sheree Franz M.D. [address] [place] [phone] 03/09/2024 9:00 AM BOAT FUELER Comprehensive Visit Division of Endocrinology in [place], [place] [address] [place] [phone] Jo Farris M.D. [address] [place] [phone] 03/09/2024 10:30 AM BOAT FUELER Comprehensive Visit Freddy martin [facility] Trans[facility] and Clinical Regeneration in [place], [place] [address] [place] [phone] Idalia Hand M.D. [address] [place] [phone] 03/09/2024 12:00 PM BOAT FUELER Appointment Department of Radiology, [facility], in [place], [place] [address] [place] [address] Sheree Franz M.D. [address] [place] [phone] 03/09/2024 2:00 PM BOAT FUELER Virtual [facility] in [place], [place] [address] [place] [address] Sheree Franz M.D. [address] [place] [phone] 03/09/2024 3:20 PM BOAT FUELER Appointment Department of Cardiovascular Diseases in [place], [place] [address] [place] [address] Sheree Franz M.D. [address] [place] [phone] 03/10/2024 9:00 AM BOAT FUELER Comprehensive Visit Freddy Slade [facility] Transplantation and Clinical Regeneration in [place], [place] [address] [place] [address] Shahid Edge M.D. [address] [place] [phone] 03/10/2024 1:30 PM BOAT FUELER Appointment Division of Nephrology and Hypertension, [facility], in [place], [place] [address] [place] [address] Nicholas Tracey APRN, C.N.P., M.S.N. [address] [place] [phone] 03/11/2024 8:00 AM BOAT FUELER Clinical Support [facility] in [place], [place] [address] [place] [address] Sheree Franz M.D. [address] [place] [phone] Alyse Chang M.SVirginia., L.I.C.S.W. [address] [place] [phone] 03/11/2024 10:00 AM BOAT FUELER [facility] in [place], [place] [address] [place] [address] Sheree Franz M.D. [address] [place] [phone] 03/11/2024 11:00 AM BOAT FUELER Comprehensive [facility] Clinical [facility] in [place], [place] [address] [place] [address] Sheree Franz M.D. [address] [place] [phone] 03/11/2024 1:00 PM BOAT FUELER Nurse Only [facility] for Transplantation and Clinical Regeneration in [place], [place] [address] [place] [address] Sheree Franz M.D. [address] [place] [phone] 03/11/2024 4:00 PM BOAT FUELER [facility] in [place], [place] [address] [place] [address] Idalia Hand M.D. [address] [place] [phone] 03/23/2024 1:30 PM BOAT FUELER Appointment Department of Radiology, [facility], in [place], [place] [address] [place] [address] Glen Baker M.D. [address] [place] [address] Discharge Disposition: Home or Self Care 03/23/2024 3:00 PM BOAT FUELER Nurse Only Division of Nephrology and Hypertension in [place], [place] [address] [place] [address] Glen Baker M.D. [address] [place] [address] documented as of this encounter Procedures Procedure Name Priority Date/Time Associated Diagnosis Comments INTERPRETATION OF OUTSIDE CT CHEST RAD - Routine (most inpatients and all outpatients) 01/19/2024 8:57 AM BOAT FUELER Nodule Pulmonary documented in this encounter Results * Interpretation of Outside CT Chest (01/19/2024 8:57 AM BOAT FUELER) Anatomical Region Laterality Modality Chest, Thoracic RST LOS, Tho racic ARZ LOS, Thoracic FLA LOS, Other, Body N/A Computed Tomography Impressions 01/20/2024 9:48 AM BOAT FUELER A couple of small pulmonary nodules are present. These may be infectious/inflammatory, but are technically indeterminate. Consider a short interval (3 month) follow-up chest CT in further evaluation. Narrative 01/20/2024 9:48 AM BOAT FUELER EXAM: INTERPRETATION OF OUTSIDE CT CHEST without [...] Pulmonary documented in this encounter Care Teams Credit Card Analyst Relationship Specialty Start Date End Date None Reported, Pcp PCP - General Family Medicine 03/10/23 documented as of this encounter
--- OUTSIDE RECORDS SUMMARY | 2024-02-21 00:30 | XMS_ITS | Encounter Summary ---
Author Organization [facility] Address [address] [address] Care Team Providers Care Decorative Engraver Apprentice Name Role Phone None Reported, Pcp Primary Care Provider Unavail able Encounter Details Date Type Department Care Team (Latest Contact Info) Description 11/07/2023 Intake [facility] Social History Tobacco Use Types Packs/Day Years Used Date Smoking Tobacco: Never Smokeless Tobacco: Never Alcohol Use Standard Drinks/Week Comments Never 0 (1 standard drink = 0.6 oz pur e alcohol) [facility] Utilities Answer Date Recorded In the past 12 months has [employer], gas, oil, or water [employer] threatened to shut off services in your [...] your living situation today? [facility] a [facility] place [facility] 11/07/2023 Comments No Sex and Gender Information Value Date Recorded Sex Assigned at Female 03/13/2023 1:[address] CLEANING EQUIPMENT OPERATOR Legal Sex Female 10:[address] CLEANING EQUIPMENT OPERATOR Gender Identity Female 03/13/2023 1:[address] CLEANING EQUIPMENT OPERATOR Sexual Orientation Straight 03/13/2023 1: [address] CLEANING EQUIPMENT OPERATOR documented as of this encounter Last Filed [...] (Latest Contact Info) Description 03/02/2024 10:[address] CLEANING EQUIPMENT OPERATOR Telemedicine Department of Patient Education in [place], [place] [address] [place] [phone] Sheree Franz M.D. [address] [place] [phone] 03/05/2024 11:[address] CLEANING EQUIPMENT OPERATOR Clinical Communication Virtual Review in [place], [place] 200 [place] [address] 03/09/2024 6:[address] CLEANING EQUIPMENT OPERATOR Lab Department of Laboratory Medicine and Pathology, [facility] in [place], [place] [address] [place] [phone] Sheree Franz M.D. [address] [place] [phone] 03/09/2024 6:[address] CLEANING EQUIPMENT OPERATOR Lab Department of Laboratory Medicine and Pathology, [facility] in [place], [place] [address] [place] [phone] Sheree Franz M.D. [address] [place] [phone] 03/09/2024 7:[address] CLEANING EQUIPMENT OPERATOR Ancillary Procedure Department of Cardiovascular Medicine in [address] [phone] Sheree Franz M.D. [address] [place] [phone] 03/09/2024 9:[address] CLEANING EQUIPMENT OPERATOR Comprehensive Visit Division of Endocrinology in [place], [place] [address] [place] [phone] Jo Farris M.D. [address] [place] [phone] 03/09/2024 10:[address] CLEANING EQUIPMENT OPERATOR [facility] in [place], [place] [address] [place] [phone] Idalia Hand M.D. [address] [place] [address] 03/09/2024 12:[address] CLEANING EQUIPMENT OPERATOR Appointment Department of Radiology, [facility], in [place], [place] [address] [place] [address] Sheree Franz M.D. [address] [place] [address] 03/09/2024 2:[address] CLEANING EQUIPMENT OPERATOR Virtual [facility] in [place], [place] [address] [place] [address] Sheree Franz M.D. [address] [place] [address] 03/09/2024 3:[address] CLEANING EQUIPMENT OPERATOR Appointment Department of Cardiovascular Diseases in [place], [place] [address] [place] [address] Sheree Franz M.D. [address] [place] [phone] 03/10/2024 9:[address] CLEANING EQUIPMENT OPERATOR Comprehensive [facility] in [place], [place] [address] [place] [address] Shahid Edge M.D. [address] [place] [phone] 03/10/2024 1:[address] CLEANING EQUIPMENT OPERATOR Appointment Division of Nephrology and Hypertension, [facility], in [place], [place] [address] [place] [phone] Nicholas Tracey, SUPERINTENDENT QUARRY, C.N.P., M.S.N. [address] [place] [phone] 03/11/2024 8:[address] CLEANING EQUIPMENT OPERATOR Clinical Support Freddy martin [facility] for Transplantation and Clinical Regeneration in [place], [place] [address] [place] [address] Sheree Franz M.D. [address] [place] [phone] Alyse Chang M.S.W., L.ILavonne.S.W. [address] [place] [address] 03/11/2024 10:[address] CLEANING EQUIPMENT OPERATOR Office Visit Freddy martin [facility] Transplantation and Clinical Regeneration in [place], [place] [address] [place] [address] Sheree Franz M.D. [address] [place] [phone] 03/11/2024 11:[address] CLEANING EQUIPMENT OPERATOR Comprehensive Visit [facility] in [place], [place] [address] [place] [address] Sheree Franz M.D. [address] [place] [phone] 03/11/2024 1:[address] CLEANING EQUIPMENT OPERATOR Nurse Only Freddy martin [facility] for Transplantation and Clinical Regeneration in [place], [place] [address] [place] [address] Sheree Franz M.D. [address] [place] [phone] 03/11/2024 4:[address] CLEANING EQUIPMENT OPERATOR Office Visit Freddy martin [facility] for Transplantation and Clinical Regeneration in [place], [place] [address] [place] [address] Idalia Hand M.D. [address] [place] [address] 03/23/2024 1:[address] CLEANING EQUIPMENT OPERATOR Appointment Department of Radiology, [facility], in [place], [place] [address] [place] [address] Glen Baker M.D. [address] [place] [address] Discharge Disposition: Home or Self Care 03/23/2024 3:[address] CLEANING EQUIPMENT OPERATOR Nurse Only Division of Nephrology and Hypertension in [place], [place] [address] [place] [address] Glen Baker M.D. [address] [place] [address] documented as of this encounter Visit Diagnoses Not on filedocumented in this encounter Care Teams Decorative Engraver Apprentice Relationship Specialty Start Date End Date None Reported, Pcp PCP - General Family Medicine 03/10/23 documented as of this encounter
--- OUTSIDE RECORDS SUMMARY | 2024-02-21 00:30 | XMS_ITS | Encounter Summary ---
Author Organization [facility] Address [address] [place] [address] Care Team Providers Care Migrant Leader Name Role Phone None Reported, Pcp Primary Care Provider Unavail able Encounter Details Date Type Department Care Team (Late st Contact Info) Description 01/21/2024 Documentation Division of Nephrology and Hypertension, [facility], in [place], [place] [address] [place] [phone] Nicholas Tracey P, MAGY, C.N.P., M.S.N. [address] [place] [phone] Social History Tobacco Use Types Packs/Day Years Used Date Smoking Tobacco: Never Smokeless Tobacco: Never Alcohol Use Standard Drinks/Week Comments Never 0 (1 standard drink = 0.6 oz pur e alcohol) [facility] Utilities Answer Date Recorded In the past 12 months has e [employer], gas, oil, or water [employer] threatened to shut off services in your [...] [facility] live 11/07/2023 Comments No Sex and Gender Information Value Date Recorded Sex Assigned at Female 03/13/2023 1:38 PM REAR LOAD TRUCK DRIVER Legal Sex Female 10:08 PM REAR LOAD TRUCK DRIVER Gender Identity Female 03/13/2023 1:42 PM REAR LOAD TRUCK DRIVER Sexual Orientation Straight 03/13/2023 1: 42 PM REAR LOAD TRUCK DRIVER documented as of this encounter Progress Notes * Nicholas Tracey, INTERCELL CONNECTOR PLACER, C.N.P., M.S.N. - 01/21/2024 7:57 AM CST Ms. Ramirez has end stage kidney disease secondary to IgA nephropathy [facility] since April 2023. She is [facility] hemod[facility] at [facility] on Friday,Friday and Friday afternoon session. Her right IJ tunneled hemodialysis catheter was thrombosed t erickson. Nursing not able to flush the catheter and initiate her dialysis today despite alteplase in [place] this morning. She is agreeable to go to [facility] in [place] for a right IJ tunneled hemodialysis catheter exchange today. She did not take her Warfarin recently. She did not have her breakfast this morning. Catheter exchange is scheduled at 11:30 a.m. in [facility] today. Her daughter Jacob is informed that she needs to have a route sales driver for her trip and she will continue to fast until the procedure. Charge nurse at [facility] dialysis unit is coordinating her session of hemodialysis tomorrow 01/22/2024 at [facility] dialysis unit in [place]. She is scheduled for dialysis fistula placement on 02/05/2024. . LOAD TRUCK DRIVER documented in this encounter Plan of Treatment Upcoming Encounters Date Type Department Care Team (Latest Contact Info) Description 03/02/2024 10:00 AM REAR LOAD TRUCK DRIVER Telemedicine Department of Patient Education in [address] [phone] Sheree Franz M.D. [address] [place] [phone] 03/05/2024 11:30 AM REAR LOAD TRUCK DRIVER Clinical Communication Virtual Review in [place], [place] 200 [place] [address] 03/09/2024 6:40 AM REAR LOAD TRUCK DRIVER Lab Department of Laboratory Medicine and Pathology, [facility], in [address] [phone] Sheree Franz M.D. [address] [place] [phone] 03/09/2024 6:50 AM REAR LOAD TRUCK DRIVER Lab Department of Laboratory Medicine and Pathology, [facility], in [place], [place] [address] [place], [place] [phone] Sheree Franz M.D. [address] [place] [phone] 03/09/2024 7:20 AM REAR LOAD TRUCK DRIVER Ancillary Procedure Department of Cardiovascular Medicine in [place], [place] [address] [place], [place] [phone] Sheree Franz M.D. [address] [place] [phone] 03/09/2024 9:00 AM REAR LOAD TRUCK DRIVER Comprehensive Visit Division of Endocrinology in [place], [place] [address] [place] [phone] Jo Farris M.D. [address] [place] [phone] 03/09/2024 10:30 AM REAR LOAD TRUCK DRIVER Comprehensive Visit Freddy Diaz [facility] in [place], [place] [address] [place] [phone] Idalia Hand M.D. [address] [place] [phone] 03/09/2024 12:00 PM REAR LOAD TRUCK DRIVER Appointment Department of Radiology, [facility], in [place], [place] [address] [place] [address] Sheree Franz M.D. [address] [place] [phone] 03/09/2024 2:00 PM REAR LOAD TRUCK DRIVER [facility] [place], [place] [address] [place] [address] Sheree Franz M.D. [address] [place] [address] 03/09/2024 3:20 PM REAR LOAD TRUCK DRIVER Appointment Department of Cardiovascular Diseases in [place], [place] [address] [place] [address] Sheree Franz M.D. [address] [place] [phone] 03/10/2024 9:00 AM REAR LOAD TRUCK DRIVER Comprehensive Visit Freddy martin [facility] for Transplantation and Clinical Regeneration in [place], [place] [address] [place] [address] Shahid Edge M.D. [address] [place] [phone] 03/10/2024 1:30 PM REAR LOAD TRUCK DRIVER Appointment Division of Nephrology and Hypertension, [facility], in [place], [place] [address] [place] [address] Nicholas Tracey, INTERCELL CONNECTOR PLACER, C.N.P., M.S.N. [address] [place] [phone] 03/11/2024 8:00 AM REAR LOAD TRUCK DRIVER Clinical Support Freddy Berlin martin [facility] in [place], [place] [address] [place] [address] Sheree Franz M.D. [address] [place] [phone] Alyse Chang M.S.W., L.I.C.S.W. [address] [place] [address] 03/11/2024 10:00 AM REAR LOAD TRUCK DRIVER [facility] in [place], [place] [address] [place] [address] Sheree Franz M.D. [address] [place] [phone] 03/11/2024 11:00 AM REAR LOAD TRUCK DRIVER Comprehensive Visit Freddy Billy ver[facility] Transplantation and Clinical Regeneration in [place], [place] [address] [place] [address] Sheree Franz M.D. [address] [place] [phone] 03/11/2024 1:00 PM REAR LOAD TRUCK DRIVER Nurse Only [facility] in [place], [place] [address] [place] [address] Sheree Franz M.D. [address] [place] [phone] 03/11/2024 4:00 PM REAR LOAD TRUCK DRIVER Office Visit Freddy Berlin [facility] in [place], [place] [address] [place] [address] Idalia Hand M.D. [address] [place] [phone] 03/23/2024 1:30 PM REAR LOAD TRUCK DRIVER Appointment Department of Radiology, [facility], in [place], [place] [address] [place] [address] Glen Baker M.D. [address] [place] [phone] Discharge Disposition: Home or Self Care 03/23/2024 3:00 PM REAR LOAD TRUCK DRIVER Nurse Only Division of Nephrology and Hypertension in [place], [place] [address] [place] [address] Glen Baker M.D. 200 [place] [phone] documented as of this encounter Visit Diagnoses Not on filedocumented in this encounter Care Teams Migrant Leader Relationship Specialty Start Date End Date None Reported, Pcp PCP - General Family Medicine 03/10/23 documented as of this encounter
--- OUTSIDE RECORDS SUMMARY | 2024-02-21 00:30 | XMS_ITS | Encounter Summary ---
Author Organization [facility] Address [address] [place] [address] Care Team Providers Care Clinical Research Assistant Name Role Phone None Reported, Pcp Primary Care Provider Unavail able Reason for Referral * Outpatient (Routine) - Closed Specialty Diagnoses / Procedures Referred By Crow olivo Referred To Contact Radiology Diagnoses Complication Dialysis Catheter Subsequent Chronic Failure Renal End Stage Renal Disease Dialysis Dependent (HCC) Procedures IR Dialysis / High Flow Catheter Exchange Nicholas Tracey APRN C.N.P., M.S.N. [address] [place] [phone] Phone: tel: fax: [facility] Referral ID Status Reason Start Date Expiration Date Visits Re quested Visits Authorized [id number] Closed 01/21/2024 01/20/2025 1 1 AL CRUELTY INVESTIGATION SUPERVISOR Reason for Visit * Outpatient (Routine) - Closed Specialty Diagnoses / Procedures Referred By Contac t Referred To Contact Radiology Diagnoses Complication Dialysis Catheter Subsequent Chronic Failure Renal End Stage Renal Disease Dialysis Dependent (HCC) Procedures IR Dialysis / High Flow Catheter Exchange Nicholas Tracey APRN, C.N.P., M.S.N. [address] [place] [phone] Phone: tel: fax: [facility] Referral ID Status Reason Start Date Expiration Date Visits Re quested Visits Authorized [id number] Closed 01/21/2024 01/20/2025 1 1 Encounter Details Date Type Department Care Team (Latest Contact Info) Description 01/21/2024 10:05 AM ANIMAL CRUELTY INVESTIGATION SUPERVISOR - 01/21/2024 3:35 PM ANIMAL CRUELTY INVESTIGATION SUPERVISOR Hospital Encounter Department of Radiology in [place], [place] [address] [place] [phone] Nicholas Tracey, MAGY, C.N.P., M.S.N. [address] [place] [phone] Antony Liz M.D. [address] [place] [phone] Complication Dialysis Catheter Subsequent; Chronic Failure Renal End Stage Renal Disease Dialysis Dependent (HCC) Discharge Disposition: Home or Self Care Social History Tobacco Use Types Packs/Day Years Used Date Smoking Tobacco: Never Smokeless Tobacco: Never Alcohol Use Standard Drinks/Week Comments Never 0 (1 standard drink = 0.6 oz pur e alcohol) [facility] Utilities Answer Date Recorded In the past 12 months has [employer], gas, oil, or water [employer] threatened to shut off services in your [...] your living situation today? [facility] 11/07/2023 Comments No Sex and Gender Information Value Date Recorded Sex Assigned at Female 03/13/2023 1:38 PM ANIMAL CRUELTY INVESTIGATION SUPERVISOR Legal Sex Female 10:08 PM ANIMAL CRUELTY INVESTIGATION SUPERVISOR Gender Identity Female 03/13/2023 1:42 PM ANIMAL CRUELTY INVESTIGATION SUPERVISOR Sexual Orientation Straight 03/13/2023 1: 42 PM ANIMAL CRUELTY INVESTIGATION SUPERVISOR documented as of this encounter Last Filed Vital Signs Vital Sign Reading Time Taken Comments Blood Pressure 154/79 01/21/2024 2:55 PM ANIMAL CRUELTY INVESTIGATION SUPERVISOR Pulse 61 01/21/2024 3:05 PM ANIMAL CRUELTY INVESTIGATION SUPERVISOR Temperature 36.7 C (98.1 F) 01/21/2024 2:55 PM ANIMAL CRUELTY INVESTIGATION SUPERVISOR Respiratory Rate 14 01/21/2024 3:05 PM ANIMAL CRUELTY INVESTIGATION SUPERVISOR Oxygen Saturation 99% 01/21/2024 3:05 PM ANIMAL CRUELTY INVESTIGATION SUPERVISOR Inhaled Oxygen Concentration - - Weight 108 kg (238 lb 8.6 oz) 01/21/2024 12:18 P M ANIMAL CRUELTY INVESTIGATION SUPERVISOR Height - - Body Mass Index 46.59 [...] RA. Ready for use. PRIMARY PROCEDURALIST Shalonda [id number] ASSISTANTS None COMPLICATIONS None. DRAINS None. IMPLANTS 19 cm Palindrome ANESTHESIA Moderate Sedation. FLUIDS N/a ESTIMATED BLOOD LOSS <5ml CURRENT MEDICATIONS No Medication Changes FOLLOW-UP LETTER None. MAY RETURN TO WORK Not applicable PATIENT INSTRUCTIONS No return appointment AL CRUELTY INVESTIGATION SUPERVISOR documented in this encounter Plan of Treatment Upcoming Encounters Date Type Department Care Team (Latest Contact Info) Description 03/02/2024 10:00 AM ANIMAL CRUELTY INVESTIGATION SUPERVISOR Telemedicine Department of Patient Education in [place], [place] [address] [place] [phone] Sheree Franz M.D. [address] [place] [phone] 03/05/2024 11:30 AM ANIMAL CRUELTY INVESTIGATION SUPERVISOR Clinical Communication Virtual Review in [place], [place] 200 [place] [address] 03/09/2024 6:40 AM ANIMAL CRUELTY INVESTIGATION SUPERVISOR Lab Department of Laboratory Medicine and Pathology, [facility] in [place], [place] [address] [place] [phone] Sheree Franz M.D. [address] [place] [phone] 03/09/2024 6:50 AM ANIMAL CRUELTY INVESTIGATION SUPERVISOR Lab Department of Laboratory Medicine and Pathology, [facility] in [place], [place] [address] [place] [phone] Sheree Franz M.D. [address] [place] [phone] 03/09/2024 7:20 AM ANIMAL CRUELTY INVESTIGATION SUPERVISOR Ancillary Procedure Department of Cardiovascular Medicine in [place], [place] [address] [place] [phone] Sheree Franz M.D. [address] [place] [phone] 03/09/2024 9:00 AM ANIMAL CRUELTY INVESTIGATION SUPERVISOR Comprehensive Visit Division of Endocrinology in [place], [place] [address] [place] [phone] Jo Farris M.D. [address] [place] [phone] 03/09/2024 10:30 AM ANIMAL CRUELTY INVESTIGATION SUPERVISOR Comprehensive Visit Freddy Slade [facility] for Transplantation and Clinical Regeneration in [place], [place] [address] [place] [address] Idalia Hand M.D. [address] [place] [phone] 03/09/2024 12:00 PM ANIMAL CRUELTY INVESTIGATION SUPERVISOR Appointment Department of Radiology, [facility], in [place], [place] [address] [place] [phone] Sheree Franz M.D. [address] [place] [phone] 03/09/2024 2:00 PM ANIMAL CRUELTY INVESTIGATION SUPERVISOR Virtual Visit Freddy Slade [facility] Transplantation and Clinical Regeneration in [place], [place] [address] [place] [phone] Sheree Franz M.D. [address] [place] [phone] 03/09/2024 3:20 PM ANIMAL CRUELTY INVESTIGATION SUPERVISOR Appointment Department of Cardiovascular Diseases in [place], [place] [address] [place] [phone] Sheree Franz M.D. [address] [place] [phone] 03/10/2024 9:00 AM ANIMAL CRUELTY INVESTIGATION SUPERVISOR Comprehensive Visit Freddy Slade [facility] Transplantation and Clinical Regeneration in [place], [place] [address] [place] [address] Shahid Edge M.D. [address] [place] [phone] 03/10/2024 1:30 PM ANIMAL CRUELTY INVESTIGATION SUPERVISOR Appointment Division of Nephrology and Hypertension, [facility], in [place], [place] [address] [place] [phone] Nicholas Tracey APRN, C.NJanieP., M.S.N. [address] [place] [phone] 03/11/2024 8:00 AM ANIMAL CRUELTY INVESTIGATION SUPERVISOR Clinical Support [facility] in [place], [place] [address] [place] [phone] Sheree Franz M.D. [address] [place] [phone] Alyse hCang M.S.W., L.I.C.S.W. [address] [place] [phone] 03/11/2024 10:00 AM ANIMAL CRUELTY INVESTIGATION SUPERVISOR [facility] in [place], [place] [address] [place] [phone] Sheree Franz M.D. [address] [place] [phone] 03/11/2024 11:00 AM ANIMAL CRUELTY INVESTIGATION SUPERVISOR Comprehensive Visit Freddy martin [facility] for Transplantation and Clinical Regeneration in [place], [place] [address] [place] [phone] Sheree Franz M.D. [address] [place] [phone] 03/11/2024 1:00 PM ANIMAL CRUELTY INVESTIGATION SUPERVISOR Nurse Only Freddy martin [facility] for Transplantation and Clinical Regeneration in [place], [place] [address] [place] [phone] Sheree Franz M.D. [address] [place] [phone] 03/11/2024 4:00 PM ANIMAL CRUELTY INVESTIGATION SUPERVISOR Office Visit Freddy martin [facility] for Transplantation and Clinical Regeneration in [place], [place] [address] [place] [phone] Idalia Hand M.D. [address] [place] [phone] 03/23/2024 1:30 PM ANIMAL CRUELTY INVESTIGATION SUPERVISOR Appointment Department of Radiology, [facility], in [place], [place] [address] [place] [phone] Glen Baker M.D. [address] [place] [phone] Discharge Disposition: Home or Self Care 03/23/2024 3:00 PM ANIMAL CRUELTY INVESTIGATION SUPERVISOR Nurse Only Division of Nephrology and Hypertension in [place], [place] [address] [place] [phone] Glen Baker M.D. [address] [place] [phone] documented as of this encounter Procedures Procedure Name Priority Date/Time Associated Diagnosis Comments IR DIALYSIS / HIGH FLOW CATHETER EXCHANGE RAD - Routine (most inpatients and all outpatients) 01/21/2024 2:53 PM ANIMAL CRUELTY INVESTIGATION SUPERVISOR Complication Dialysis Catheter Subsequent Chronic Failure Renal End Stage Renal Disease Dialysis Dependent (HCC) documented in this encounter Results * IR Dialysis / High Flow Catheter Exchange (01/21/2024 2:53 PM ANIMAL CRUELTY INVESTIGATION SUPERVISOR) Anatomical Region Laterality Modality Body, Vascular Interventiona l RST LOS, Vascular Interventional ARZ LOS, Vascular Interventional FLA LOS N/A X-Ray Angiography Impressions 01/21/2024 3:22 PM ANIMAL CRUELTY INVESTIGATION SUPERVISOR Uncomplicated exchange of a partially occluded [...] catheter position. NR Narrative 01/21/2024 3:22 PM ANIMAL CRUELTY INVESTIGATION SUPERVISOR EXAM: IR DIALYSIS / HIGH FLOW CATHETER EXCHANGE CLINICAL HISTORY: Occluded right internal jugular tunnel dialysis catheter. TECHNIQUE: The right internal jugular Pristine brand tunneled dialysis catheter was prepped and draped in sterile fashion. Baker Test film shows expected position. Preliminary aspiration and [...] was prepped and draped in sterile fashion. Baker Test film showsexpected position. Preliminary aspiration and flushing [...] (RAD), Subsequent doses Given 01/21/2024 2:31 PM ANIMAL CRUELTY INVESTIGATION SUPERVISOR 25 mcg flumazeniL injection 0.2 mg (Romazicon) 0.2 mg, intravenous, Once as needed, reversal, Starting on Fri01/21/24 at 1432, For 1 dose, Intraprocedure (RAD), Administer once if patient has a RASS score of -4, -5 and has a respiratory rate less than 8 breaths/minute. iohexoL 300 mg iodine/mL solution (Omnipaque) As needed, Starting on Fri01/21/24 at 1452, Intra-Op Given 01/21/2024 2:52 PM ANIMAL CRUELTY INVESTIGATION SUPERVISOR 30 mL Lactated Ringer's 20 mL/hr, intravenous, Once as needed, to keep vein open, Starting on Fri01/21/24 at 1432, For 1 dose, Intraprocedure (RAD) New Bag 01/21/2024 2:23 PM ANIMAL CRUELTY INVESTIGATION SUPERVISOR 20 mL/hr 20 mL/hr lidocaine-sodium bicarbonate (buffered) 0.9%-0.84% injection infiltration, As needed, Starting on Fri01/21/24 at 1452, Intra-Op Given 01/21/2024 2:52 PM ANIMAL CRUELTY INVESTIGATION SUPERVISOR 15 mL midazolam (PF) injection 0.5 mg (Versed) 0.5 mg, intravenous, Once as needed, sedation, Starting on Fri01/21/24 at 1432, For 1 dose, Intraprocedure (RAD) Given 01/21/2024 2:31 PM ANIMAL CRUELTY INVESTIGATION SUPERVISOR 0.5 mg midazolam (PF) injection 0.5 mg (Versed) 0.5 mg, intravenous, Every 2 min PRN, sedation, RASS -1, Starting on Fri01/21/24 at 1432, For 3 hours, Intraprocedure (RAD), May repeat every 2 minutes for a maximum of 5 mg. Do not give if respiratory rate is less than 8 breaths/minute. Given 01/21/2024 2:32 PM ANIMAL CRUELTY INVESTIGATION SUPERVISOR 0.5 mg naloxone injection 0.2 mg (Narcan) 0.2 mg, intravenous, Once as needed, respiratory depression, Starting on Fri01/21/24 at 1432, For 1 dose, Intraprocedure (RAD), Administer once if patient has a RASS score of -4, -5 and has a respiratory rate less than 8 breaths/minute. sodium citrate 4 % injection As needed, Starting on Fri01/21/24 at 1440, Intra-Op Given 01/21/2024 2:40 PM ANIMAL CRUELTY INVESTIGATION SUPERVISOR 6 mL documented in this encounter Active and Recently Administered Medications Times are shown in ANIMAL CRUELTY INVESTIGATION SUPERVISOR. PRN Medication Order 01/19/2024 01/20/2024 01/21/2024 [id number] [...] catheter) documented in this encounter Care Teams Clinical Research Assistant Relationship Specialty Start Date End Date None Reported, Pcp PCP - General Family Medicine 03/10/23 documented as of this encounter
--- OUTSIDE RECORDS SUMMARY | 2024-02-21 00:31 | XMS_ITS ---
Author Organization [facility] Address [address] [place] [address] Care Team Providers Care Franchise Broker Name Role Phone None Reported, Pcp Primary Care Provider Unavail able Bariatrics Program Status:Identified (Enrolling) Start date:12/23/2023 Continued Care and Services Coordination
== END 2024-02-21 01:02 | disposition home or self-care (01) ==
PROVIDERS: Emergency Provider Family Medicine; PCP Internal Medicine
DX: T82.49XA Other complication of vascular dialysis catheter, initial encounter (principal); N18.6 End stage renal disease
CPT/HCPCS: 71046; 99284

== ENCOUNTER 2024-09-25 15:01 | Emergency (ER) | payer MEDICAID, SELFPAY ==
--- OUTSIDE RECORDS SUMMARY | 2015-07-24 08:42 | XMS_ITS | Continuity of Care Document ---
Author Organization [facility] Address [address] [place] [address] Phone Care Team Providers Care Well Flow Operator Name Role Phone Ancillary, Provider Unavailable Unavailable Allergies, Adverse Reactions, Alerts Substance Reaction Status Criticality No Known Allergies Active No Inform ation Procedures Procedure Date OFFICE/OUTPATIENT VISIT, EST PREV VISIT, EST, AGE 40-64YRS OLD METABOLIC PANEL TOTAL CA LIPID PANEL ALT SGPT ALANINE AMINO AST SGOT TRANSFERASE CBC COMPLETE W/AUTO DIFF WBC TSH ASSAY THYROID STIM HORMONE 16 URINALYSIS, NONAUTO W/SCOPE URINE CULTURE/COLONY COUNT OFFICE/OUTPATIENT VISIT, NEW Advance Directives Directive Yes / No Effective Date File Name No Information Encounters Encounter Description Practice Location Reason(s) For Visit Diagnoses Date Provider Providers Copied on Encounter [facility], [address], [place], [id number], [place] tel:[phone] MEDICAL WC No Information 0 6 Ancillary Provider. [address] [place] [address], [address], [place]. tel:[phone] OFFICE/OUTPAT IENT VISIT, EST [facility], [address], [place], [id number], [place] tel:[phone] MEDICAL WC annual exam (chief complaint) Well woman exam May- 6 No Information PREV VISIT, EST, AGE 40-64YRS OLD [facility], [address], [place], [id number], [place] tel:[phone] MEDICAL WC Adult physical (chief complaint) Physical examBMI 26.0-26.9,ad ult May- 6 [place] [place], [address], . tel:[phone] [facility], [address], [place], [id number], [place] tel:[phone] MEDICAL WC No Information 6 Ancillary Provider. [address] [place] [address], [address], [place]. tel:[phone] OFFICE/OUTPAT IENT VISIT, [facility], [address], [place], [id number], [place] tel:[phone] MEDICAL WC chest discomfort (chief complaint) Breast pain 6 [address] [place]. [address] [place], [address], [place]. tel:[phone] Family History Family Member Type Diagnosis Age At Onset Father Problem (finding) raised blood lipids Mother Problem (finding) malignant neop lasm of breast in first degree relative Sister Problem (finding) Alive and well Brother Problem (finding) Alive and well Payers Payer name Insurance type Covered constitution party ID Authoriza tion(s) No Information Social History Type Description Quantity Date Captured Comments Sex Female Smoking Status No Information Chief Complaint And Reason For Visit No Information Reason For Referral Reason For Referral No Information Plan Of Treatment Date Type Action Status Referral Ordered: MAMMOGRAM, SCREENING ordered History Of Present Illness Encounter Date Complaint History Of Prese nt Illness annual exam : 4. Faith ty: Term: 3. : 1. Livin. The patient states she uses Female sterilization for control. Last LMP was 06/09/2015. Pertinent negatives include abnormal bleeding (hematology), abnormal vaginal bleeding, anxiety, decreased libido, depression, difficulty falling sleep, dyspareunia, history of infertility, nocturia, sexual dysfunction, sleep disturbances, urinary incontinence, urinary urgency, vaginal discharge and vaginal itching. The patient does not use tobacco. She has not been exposed to passive smoke. She does not drink alcohol. Adult physical Adult physical (comments) 39 yea rs old adult, here for annual physicalPMH: ovarian cyst-resolvedPSH: c/s x3. umbilical hernia repairSocial Hx: no tobacco, etoh or drugsFamily Hx: F: hypertension. M: breast ca at 57Allergies: noneMed: vit ELast mammogram: appt nextLast pap: has apptc/o lower back pain on/off lasting 1min. no UTI sx. No trouble with urine/bowel movement. no numbness/tinling to legs. Denies med. states stretching/massaging helped chest discomfort (comments) new pt PMH: ovarian cyst-resolvedPSH: c/s x3. umbilical hernia repairMED: nonec/o CP [id number], feels like a pinch, lasting for 10minutes. Pt is pointing to her L breast. no heart burn. no relation to food, denies stress/anxiety. Denies relation to menses. no numbness/tingling to arm. h/o family h/o cardiac problems. chest discomfort The patient pre sents with a complaint of chest discomfort. Relevant history for this patient excludes tobacco use. Functional Status Date Functional Assessmen t No Information Instructions Date Instruction Additional Infor mk Pt doing well. No co mplaints. S/P BTL regular menses. PAP done. Will order mammogram. Pt to return to clinic 1 year Related to Well woman exam Assessments Type Assessment Date No Information Patient Care Teams Name Effective Dates (start - stop) Status Members No Information
--- OUTSIDE RECORDS SUMMARY | 2015-07-24 08:42 | XMS_ITS | Continuity of Care Document ---
Author Organization [facility] Address [address] [place] [address] Phone Care Team Providers Care Grape Pruner Name Role Phone Ancillary, Provider Unavailable Unavailable [...] Diagnoses Date Provider Providers Copied on Encounter [facility], [address] [place] [employer] [place], [place], [id number], [place] tel:[phone] MEDICAL WC No Information 0 6 Ancillary Provider. [address] [place] [address], [address], [place]. tel:[phone] OFFICE/OUTPAT IENT VISIT, EST [facility], [address] [place] [employer] [place], [place], [id number], [place] tel:[phone] MEDICAL WC annual exam (chief complaint) Well woman exam May- 6 No Information PREV VISIT, EST, AGE 40-64YRS OLD [facility], [address] [place] [place], [place], [id number], [place] tel:[phone] MEDICAL WC Adult physical (chief complaint) Physical examBMI 26.0-26.9,ad ult May- 6 [address] [place] [place], [address], . tel:[phone] [facility], [address] [place] [place], [place], [id number], [place] tel:[phone] MEDICAL WC No Information 6 Ancillary Provider. [address] [place] [address], [address], [place]. tel:[phone] OFFICE/OUTPAT IENT VISIT, [facility], [address] [place] [place], [place], [id number], [place] tel:[phone] MEDICAL WC chest discomfort (chief complaint) Breast pain 6 [address] [place], [address], [place]. tel:[phone] Family History Family Member Type Diagnosis Age At Onset Father Problem (finding) raised blood lipids Mother Problem (finding) malignant neop lasm of breast in first degree relative Sister Problem (finding) Alive and well Brother Problem (finding) Alive and well Payers Payer name Insurance type Covered green party ID Authoriza tion(s) No Information Social [...] c/s x3. umbilical hernia repairMED: nonec/o CP [id number], feels like a pinch, lasting for 10minutes. [...]
--- OUTSIDE RECORDS SUMMARY | 2024-08-12 14:55 | XMS_ITS | Encounter Summary ---
Author Organization [facility] Address [address] [place] [address] Care Team Providers Care Internet Webmaster Name Role Phone Elsewhere, Pcp Primary Care Provider Unavailabl e Reason for Referral * Cardiovascular-Diagnostic (Routine) - Closed Specialty Diagnoses / Procedures Referred By Crow olivo Referred To Contact Diagnoses Chronic Kidney Disease Stage 5 GFR Less Than 15 Dialysis Dependent (HCC) Hemodialysis Status Hypertension Essential Primary Morbid Obesity Body Mass Index 45.0-49.9 Adult (HCC) Procedures Echo Idalia Natarajan M.D. [address] [place] [address] Phone: tel: fax: [facility] Referral ID Status Reason Start Date Expiration Date Visits Re quested Visits Authorized [id number] Closed 07/29/2024 10/29/2025 1 1 Reason for Visit * Cardiovascular-Diagnostic (Routine) - Closed Specialty Diagnoses / Procedures Referred By Crow olivo Referred To Contact Diagnoses Chronic Kidney Disease Stage 5 GFR Less Than 15 Dialysis Dependent (HCC) Hemodialysis Status Hypertension Essential Primary Morbid Obesity Body Mass Index 45.0-49.9 Adult (HCC) Procedures Echo Idalia Natarajan M.D. [address] [place] [address] Phone: tel: fax: [facility] Referral ID Status Reason Start Date Expiration Date Visits Re quested Visits Authorized [id number] Closed 07/29/2024 10/29/2025 1 1 Encounter Details Date Type Department Care Team (Latest Contact Info) Description 08/12/2024 2:55 PM CDT - 08/12/2024 11:59 PM CDT Hospital Encounter Department of Cardiovascular Diseases in [place], [place] [address] [place] [address] Idalia Hand M.D. [address] [place] [address] Chronic Kidney Disease Stage 5 GFR Less Than 15 Dialysis Dependent (HCC); Hemodialysis Status; Hypertension Essential Primary; Morbid Obesity Body Mass Index 45.0-49.9 Adult (HCC) Discharge Disposition: Home or Self Care Social History Tobacco Use Types Packs/Day Years Used Date Smoking Tobacco: Never Smokeless Tobacco: Never Alcohol Use Standard Drinks/Week Comments Never 0 (1 standard drink = 0.6 oz pur e alcohol) [facility] Utilities Answer Date Recorded In the past 12 months has [employer], gas, oil, or water [employer] threatened to shut off services in your [...] or ex-partner? Patient unable to answer 11/07/2023 Hunger Vital Sign Answer Date Recorded Within [...] things needed for daily living? No 11/07/2023 Housing Stability Answer Date Recorded What is your living situation today? 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 calcium carbonate (calcium carbonate EX) 750 mg (300 mg calcium) chewable tablet Chew 2 tablets 3 (three) times a day after meals. carvediloL (Coreg) 12.5 mg tablet Take 1 tablet (12.5 mg total) by mouth 2 (two) times a day with meals. 180 tablet 3 07/23/2024 3:08 PM CDT 07/23/2024 6 lidocaine-priloc lew (Emla) 2.5-2.5 % cream Apply 1 Application topically See Admin Instructions. 2 hours prior to dialysis. 30 g 11 03/29/2024 6 warfarin (Jantoven) 2 mg tablet TAKE 2&1/2 TABLETS (5MG) BY MOUTH EVERY EVENING 225 tablet 1 05/10/2024 documented as of this encounter Plan of Treatment Upcoming Encounters Date Type Department Care Team (Latest Contact Info) Description 10/06/2024 12:30 PM CDT Telemedicine Department of Cardiovascular Medicine in [place], [place] [address] [place] [address] Cheryl Bruce M.D., M.S. [address] [place] [address] 10/07/2024 4:52 PM CDT Hospital Encounter Division of Cardiovascular Diseases in [address] [phone] Abnormal Stress Test 10/07/2024 4:52 PM CDT - 10/07/2024 6:07 PM CDT Surgery Division of Cardiovascular Diseases in [address] [phone] Furnace TenderFred M.D. CORONARY ANGIOGRAPHY WITH POSSIBLE INTERVENTION documented as of this encounter Procedures Procedure Name Priority Date/Time Associated Diagnosis Comments ECHO STRESS 2D WITH COLOR, LIMITED DOPPLER AND CONTRAST Routine 08/12/2024 4:32 PM CDT Chronic Kidney Disease Stage 5 GFR Less Than 15 Dialysis Dependent (HCC) Hemodialysis Status Hypertension Essential Primary Morbid Obesity Body Mass Index 45.0-49.9 Adult (HCC) documented in this encounter Results * ECHO STRESS 2D WITH COLOR, LIMITED DOPPLER AND CONTRAST (08/12/2024 4:32 PM CDT) Ejection Fraction 60 MC CV EIMS Mid-Ascending Aorta 32 MC CV EIMS LV Mass Index 57 MC CV EIMS LV End-Diastolic Diameter 46 MC CV EIMS LV End-Systolic Diameter 32 MC CV EIMS MV E Velocity 0.7 MC CV EIMS MV A Velocity 1 MC CV EIMS MV E/A 0.7 MC CV EIMS MV e' Velocity Medial 0.09 MC CV EIMS MV E/e' Medial 7.8 MC CV EIMS LV Interventricular Septal Wall Thickness 8 MC CV EIMS LV Posterior Wall Thickness 8 MC CV EIMS LV Relative Wall Thickness 35 MC CV EIMS TR Vmax 2.27 MC CV EIMS Estimated RA Pressure (Echo RAP) 5 MC CV EIMS RV Systolic Pressure (with Echo RAP) 26 MC CV EIMS LA Volume Index 21 MC CV EIMS WMSI At Rest 1 MC CV EIMS WMSI At Peak Stress 2.13 MC CV EIMS Anatomical Region Laterality Modality Echocardiography 08/12/2024 3:13 PM CDT Impressions 08/12/2024 5:08 PM CDT STRESS TEST:Dobutamine was infused from 5.0 mcg/kg/min to 30.0 mcg/kg/min. A dose of 0.5 mg of atropine was administered. A peak heart rate of 86 BPM was achieved (50% age-predicted maximal HR). The test was terminated due to intolerable symptoms. The patient developed headache. The baseline ECG demonstrated sinus rhythm. With stress, the ECG demonstrated <1mm horizontal S-T depression. S-T depression in infero- lateral lead(s). APC's and ventricular bigeminy present at stress VPC's: complex forms, pairs. Please see Nursing Notes for additional information. The stress ECG was negative for ischemia. REST IMAGES: LEFT VENTRICLE:Normal left ventricular chamber size. Calculated 2-D linear left ventricular ejection fraction 56%. Left atrial strain assessment not performed because of image quality. No regional wall motion abnormalities. Grade 1/3 left ventricular diastolic dysfunction, consistent with low to normal left ventricular filling pressure at rest. RIGHT VENTRICLE:Normal right ventricular chamber size by visual estimate. Normal right ventricular systolic function. Estimated right ventricular systolic pressure 26 mmHg (right atrial pressure of 5 mmHg). ATRIA:Normal left atrial size. Left atrial volume index 21 ml/m2. Normal right atrial size by visual estimate. CARDIAC VALVES:Trileaflet aortic valve. Mildly thickened aortic valve. No aortic valve regurgitation. Mildly thickened mitral valve. Trivial mitral valve regurgitation. Pulmonary valve not well visualized. Trivial pulmonary valve regurgitation. Normal tricuspid valve. Trivial tricuspid valve regurgitation. OTHER ECHO FINDINGS:Normal inferior vena cava size with normal inspiratory collapse (>50%). Normal mid ascending aorta diameter of 32 mm. Upper limit of normal of the mid ascending aorta, for age, sex and BSA is 37 mm. No intracardiac mass or thrombus identified. No pericardial effusion. Attempts were made to optimize the echocardiographic images and two or more left ventricular segments were not visualized adequately to evaluate cardiac structure. The patient's current allergies and medications have been screened. Intravenous Definity ultrasound enhancement agent(s) administered to enhance endocardial border definition. Imaging enhancement agent administered per Echocardiography Contrast Administration Protocol Reference Document [id number] Rev 07/02/2024. Patient met an inclusion criterion and did not have contraindications in screening sections. CO-SIGNATURE:The electronic signature of the responsible supervising echo physician in this report also provides authentication within the electronic health record for the medication(s) initiated in [facility] and listed within this report. These medications were administered for the performance of this echo procedure and were given per institutional protocol. For the complete report, see the Order-Level Documents. Narrative 08/12/2024 5:08 PM CDT For the complete report, see the Order-Level Documents. Hemodynamics Heart Rate: 72 BPM Blood Pressure: 158 / 85 mmHg ECG: Sinus rhythm, Normal QRS Final Impressions 1. Dobutamine stress echocardiogram markedly positive for myocardial ischemia (see Comments). 2. Exaggerated blood pressure response to dobutamine stress. 3. Dobutamine stress echocardiogram positive for extensive anterior and inferior, inferolateral myocardial ischemia. 4. Ischemia developed at a heart rate of 81 BPM (ischemic threshold 47%). 5. Ejection fraction response from 60% at rest to 35% at peak stress. 6. Left ventricular end-systolic volume increased with stress. Comments The new regional wall motion abnormalities and left ventricular dysfunction developed after atropine administration and were seen with an exaggerated blood pressure response, which was accompanied by headache. Interestingly, the most severe regional wall motion abnormalities were seen at mid ventricular level. RBM Procedure Note Carrington Moreira M.D. - 08/12/2024 For the complete report, see the Order-Level Documents. Hemodynamics Heart Rate: 72 BPM Blood Pressure: 158 / 85 mmHg ECG: Sinus rhythm, Normal QRS Final Impressions 1. Dobutamine stress echocardiogram markedly positive for myocardialischemia (see Comments). 2. Exaggerated blood pressure response to dobutamine stress. 3. Dobutamine stress echocardiogram positive for extensive anterior andinferior, inferolateral myocardial ischemia. 4. Ischemia developed at a heart rate of 81 BPM (ischemic [id number]%). 5. Ejection fraction response from 60% at rest to 35% at peak stress. 6. Left ventricular end-systolic volume increased with stress. Comments The new regional wall motion abnormalities and left ventriculardysfunction developed after atropine administration and were seen withan exaggerated blood pressure response, which was accompanied by headache.Interestingly, the most severe regional wall motion abnormalities wereseen at mid ventricular level. RBM Findings STRESS TEST:Dobutamine was infused from 5.0 mcg/kg/min to 30.0 mcg/kg/min.A dose of 0.5 mg of atropine was administered. A peak heart rate of 86 BPMwas achieved (50% age-predicted maximal HR). The test was terminated dueto intolerable symptoms. The patient developed headache. The baseline ECGdemonstrated sinus rhythm. With stress, the ECG demonstrated <1mmhorizontal S-T depression. S-T depression in infero- lateral lead(s). APC'sand ventricular bigeminy present at stress VPC's: complex forms, pairs.Please see Nursing Notes for additional information. The stress ECG wasnegative for ischemia. REST IMAGES: LEFT VENTRICLE:Normal left ventricular chamber size. Calculated 2-D linearleft ventricular ejection fraction 56%. Left atrial strain assessment notperformed because of image quality. No regional wall motion abnormalities.Grade 1/3 left ventricular diastolic dysfunction, consistent with low tonormal left ventricular filling pressure at rest. RIGHT VENTRICLE:Normal right ventricular chamber size by visual estimate.Normal right ventricular systolic function. Estimated right ventricularsystolic pressure 26 mmHg (right atrial pressure of 5 mmHg). ATRIA:Normal left atrial size. Left atrial volume index 21 ml/m2. Normalright atrial size by visual estimate. CARDIAC VALVES:Trileaflet aortic valve. Mildly thickened aortic valve. Noaortic valve regurgitation. Mildly thickened mitral valve. Trivial mitralvalve regurgitation. Pulmonary valve not well visualized. Trivialpulmonary valve regurgitation. Normal tricuspid valve. Trivial tricuspidvalve regurgitation. OTHER ECHO FINDINGS:Normal inferior vena cava size with normal inspiratorycollapse (>50%). Normal mid ascending aorta diameter of 32 mm. Upper limitof normal of the mid ascending aorta, for age, sex and BSA is 37 mm. Nointracardiac mass or thrombus identified. No pericardial effusion.Attempts were made to optimize the echocardiographic images and two ormore left ventricular segments were not visualized adequately to evaluatecardiac structure. The patient's current allergies and medications havebeen screened. Intravenous Definity ultrasound enhancement agent(s)administered to enhance endocardial border definition. Imaging enhancementagent administered per Echocardiography Contrast Administration ProtocolReference Document [id number] Rev 07/02/2024. Patient met an inclusioncriterion and did not have contraindications in screening sections. CO-SIGNATURE:The electronic signature of the responsible supervising echophysician in this report also provides authentication [facility] for the medication(s) initiated in [facility] andlisted within this report. These medications were administered for theperformance of this echo procedure and were given per institutionalprotocol. For the complete report, see the Order-Level Documents. Idalia Hand M.D. CV ECHO PROCEDURES Final R esult documented in this encounter Visit Diagnoses Diagnosis Chronic Kidney Disease Stage 5 GFR Less Than 15 Dialysis Dependent (HCC) Hemodialysis Status Hypertension Essential Primary Morbid Obesity Body Mass Index 45.0-49.9 Adult (HCC) Abnormal Stress Test- Primary Abnormal Stress Test documented in this encounter Administered Medications Inactive Administered Medications - up to 3 most recent administrations Medication Order MAR Action Action Date Dose Rate Site atropine injection 0.5 mg 0.5 mg, intravenous, As needed, See protocol, Starting on Liv 08/12/24 at 1630, Intraprocedure - Diagnostic Given 08/12/2024 4:20 PM CDT 0.5 mg DOBUTamine 1,000 mcg/mL in D5W 250 mL infusion 1-150 mg (Dobutrex) 1-150 mg, intravenous, Once, On Liv 08/12/24 at 1700, For 1 dose, Intraprocedure - Diagnostic, Infusion rate: 5-40 mcg/kg/min - see protocol. 250 mg in 250 mL New Bag 08/12/2024 4:10 PM CDT 14.6 mg metoprolol injection 2.5 mg (Lopressor) 2.5 mg, intravenous, As needed, See protocol, Starting on Liv 08/12/24 at 1630, Intraprocedure - Diagnostic Given 08/12/2024 4:25 PM CDT 2.5 mg perflutren lipid microspheres injection (Definity) intravenous, Once in imaging, contrast, Starting on Liv 08/12/24 at 1630, For 1 dose, Intraprocedure - Diagnostic, See protocol. Given 08/12/2024 4:32 PM CDT 25 mL sodium chloride 0.9 % injection 10 mL 10 mL, intravenous, As needed, line care, Starting on Liv 08/12/24 at 1630, Prior to and following infusion and between multiple consecutive infusions: sodium chloride 0.9 % injection Given 08/12/2024 4:32 PM CDT 10 mL documented in this encounter Care Teams Internet Webmaster Relationship Specialty Start Date End Date Elsewhere, Pcp PCP - General Internal Medicine 03/09/24 documented as of this encounter
--- OUTSIDE RECORDS SUMMARY | 2024-09-21 10:00 | XMS_ITS | Encounter Summary ---
Author Organization [facility] Address [address] [place] [id number] Care Team Providers Care Direct Care Counselor Name Role Phone Elsewhere, Pcp Primary Care Provider Unavailabl e Reason for Referral * Specialty Diagnoses / Procedures Referred By Crow olivo Referred To Contact Diagnoses Abnormal Stress Test Cheryl Bruce M.D., M.S. [address] [place] [address] Phone: tel: fax: [facility] Referral ID Status Reason Start Date Expiration Date Visits Re quested Visits Authorized Reason for Visit * Transplant (Routine) - Closed Specialty Diagnoses / Procedures Referred By Crow olivo Referred To Contact Transplant Diagnoses Abnormal Laboratory Results Morbid Obesity Body Mass Index 45.0-49.9 Adult (HCC) Chronic Kidney Disease Stage 5 GFR Less Than 15 Dialysis Dependent (HCC) Preoperative Exam Idalia Hand M.D. [address] [place] [address] Phone: tel: fax: [facility] Referral ID Status Reason Start Date Expiration Date Visits Re quested Visits Authorized [id number] Closed 08/16/2024 02/15/2026 1 1 Encounter Details Date Type Department Care Team (Latest Contact Info) Description 09/21/2024 10:00 AM CDT [facility] [place], [place] [address] [place] [address] Cheryl Bruce M.D., M.S. 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 Legal Sex Female 10:08 PM 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 Gender Identity Female 03/13/2023 1:42 PM 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 - 09/21/2024 10:00 AM CDT SUBJECTIVE Referring Provider: Idalia Hand M.D. HISTORY OF PRESENT ILLNESS Ms. Leny Ramirez is a 48 y.o. female who is referred to [facility] for pre-kidney transplant cardiovascular evaluation. Renal failure is in the setting of IgA nephropathy. The patient is currently on dialysis. She has a fistula but it is not functional and she dialyzes through a catheter on MWF. She has no known history of heart disease. Cardiovascular risk factors include hypertension. She does not have diabetes in his a never smoker. She believes her mother may havehad heart problems but never sought treatment. She is very sedentary. She can walk less than a block in his limited by fatigue and dyspnea. She denies any chest pain or pressure with exertion. CURRENT MEDICATIONS Current Medications[1] SUBSTANCE USE: Social History[2] REVIEW OF SYSTEMS REVIEW OF SYSTEMS PAST MEDICAL, SURGICAL, SOCIAL, AND FAMILY HISTORY The following portions of the patient's history were reviewed and updated as appropriate: allergies, current medications, family history, medical history, social history, surgical history and problemlist. OBJECTIVE BP 144/73 Pulse 73 Temp 36.1 ??C Ht 154 cm Wt 113 kg BMI 47.73 kg/m?? PHYSICAL EXAMINATION General: Alert sitting up in no distress. Well groomed. Psychiatric: Normal mood and affect. Oriented to person, place, and time. Eyes: No periorbital xanthelasma. Clear sclerae. Heart: Regular rate and rhythm. Vessels: Normal carotid upstrokes. Lungs: Clear to auscultation. Good air movement bilaterally. Abdomen: Obese. No masses or tenderness. Extremities: No edema. DIAGNOSTICS I have reviewed the patient's current laboratory, imaging, and other diagnostic studies. ECG shows normal sinus rhythm in his normal Stress Echocardiogram 08/12/24: 1. Dobutamine stress echocardiogram markedly positive for [...] Left ventricular end-systolic volume increased with stress. ASSESSMENT / PLAN #1 Abnormal stress test #2 Hypertension #3 End stage kidney disease on hemodialysis #4 IgA nephropathy Her stress test was markedly abnormal and I would recommend proceeding to coronary angiography withpossible PCI. While she did have a hypertensive response to stress, it would be unusual for this tocause this degree of ischemic findings, which occurred at a very low ischemic threshold. In addition, she has symptoms of dyspnea on exertion. I have requested to schedule this on October 07, which has a non dialysis day. The patient is on warfarin due to slow flow through her dialysis catheter with an INR goal of 2.0. I have asked her to hold the warfarin for 3 days prior to the procedure. I have requested a nurse visit prior to the angiogram for further instructions. Addition of statin pending findings on coronary angiography. [1] Current Medications: acetaminophen (TylenoL) 500 mg tablet, Take 500 mg by mouth every 6 (six) hours as needed for pain. calcium carbonate (calcium carbonate EX) 750 mg (300 mg calcium) chewable tablet, Chew 2 tablets 3 (three) times a day after meals. carvediloL (Coreg) 12.5 mg tablet, Take 1 tablet (12.5 mg total) by mouth 2 (two) times a day with meals. lidocaine-prilocaine (Emla) 2.5-2.5 % cream, Apply 1 Application topically See Admin Instructions. 2 hours prior to dialysis. warfarin (Jantoven) 2 mg tablet, TAKE 2&1/2 TABLETS (5MG) BY MOUTH EVERY EVENING (Patient taking differently: Take 2 mg by mouth 2 (two) times a day.) [2] Social History Tobacco Use Smoking status: Never Smokeless tobacco: Never Vaping Use Vaping status: never used Substance Use Topics Alcohol use: Never Drug use: Never * Chrissy Gonzalez M.B., B.Ch., B.A.O. - 09/21/2024 10:00 AM CDT Images from the original note were not included. HEART TRANSPLANT CLINIC CONSULTATION SUBJECTIVE REFERRAL SOURCE Idalia Hand M.D. CHIEF COMPLAINT/REASON FOR CONSULT Prerenal transplant evaluation in the setting of IgA nephropathy. HISTORY OF PRESENT ILLNESS Leny Ramirez is a 48 y.o. female who was referred for cardiovascular evaluation prior to consideration for renal transplantation. Medical history is notable for: End-stage renal disease secondary to IgA nephropathy on hemodialysis Hypertension Morbid obesity with a BMI of over 40 Medications include: Carvedilol 12.5 mg b.i.d. Warfarin 2 mg b.i.d. secondary to clotting of her dialysis catheter In brief, she was diagnosed with IgA nephropathy in April of 2021 and ultimately progressed towardsdialysis in 2023. She is currently being evaluated for transplantation. With regards to her morbid obesity, she was previously seen by Endocrinology who discussed various weight loss options. A prescription for which his appetite was sent but she elected not to fill it. She is interested in proceeding with bariatric surgery and is awaiting a referral. As part of her evaluation, She underwent a dobutamine stress echo which was positive for ischemia globally in the apex and mid ventricle. Her ejection fraction reduced from 60% at rest to 35% at peakstress. She is not particularly active as she finds she gets fatigued quite quickly. However, she denies any shortness of breath at rest or on exertion and has no issues with chest pain. Did have an episode at few nights ago where she woke up and had a difficult time catching her breath but this appears winifred an isolated incident. She does snore quite a bit as well. Otherwise, she denies any lower extremity swelling. She does have occasional palpitations when she is exerting herself. She denies any dizziness or lightheadedness. She has no family history of heart disease and is a never smoker. She does not have a history of diabetes. She does have a lipid profile consistent with metabolic syndrome. Her LDL is 105. Her blood pressure is elevated in clinic today but she did not take her carvedilol this morning. She reports it is typically around 130/80 at home. REVIEW OF SYSTEMS Reviewed encounter review of systems and pertinent responses are noted in the history. The following portions of the patient's history were also reviewed and updated as appropriate: Allergies, current medications, outpatient medications, family history, medical history, social history, surgical history and problem list. ALLERGIES/CONTRAINDICATIONS Allergies[1] SOCIAL HISTORY Social History Tobacco Use Smoking status: Never Smokeless tobacco: Never Substance Use Topics Alcohol use: Never FAMILY HISTORY Family History[2] OBJECTIVE : VITAL SIGNS BP 144/73 Pulse 73 Temp 36.1 ??C Ht 154 cm Wt 113 kg BMI 47.73 kg/m?? PHYSICAL EXAMINATION General: Well-appearing, in no acute distress. Skin: No rashes or notable lesions were appreciated. Eyes: No conjunctival injection or jaundice. Oropharynx: Moist mucous membranes. Heart: Heart sounds S1 and S2 present with no added sounds. Extremities: Pulses in the bilateral extremities were 2+. No peripheral edema was present. Lungs: Nonlabored breathing. No adventitious sounds were appreciated on auscultation. Abdomen: Soft, nontender, nondistended. Positive bowel sounds. No hepatosplenomegaly evident by palpation/percussion. Mental: Alert and oriented x 4. Good cognition, appropriate affect. DIAGNOSTICS LABS: No results found for this or any previous visit (from the past 24 hours). EKG: normal sinus rhythm Dobutamine stress echo 08/12/24 ASSESSMENT / PLAN # Positive dobutamine stress echo # End-stage renal disease secondary to IgA nephropathy on hemodialysis # Hypertension # Morbid obesity with a BMI of over 40 Leny Ramirez is a 48 y.o. female who was referred for cardiovascular evaluation prior to consideration for renal transplantation after a positive dobutamine stress echo. It would be very reasonableto proceed with a coronary angiogram in this case and we had a discussion about this today. She is happy to proceed. She is currently on hemodialysis. From a risk factor standpoint, she has hypertension and morbid obesity. She is currently on warfarin for her hemodialysis catheter and we will likely stop this for a few days before the procedure. We will hold off on consideration of statin or antiplatelet therapy until we have a better sense of her coronary anatomy. She is awaiting referral to bariatric surgery for her morbid obesity. She should also likely be screened for sleep apnea. James Bell, B.Mar., B.A.O. 09/21/24 [1] No Known Allergies [2] No family history on file. documented in this encounter Plan of Treatment Upcoming Encounters Date Type Department Care Team (Latest Contact Info) Description 10/06/2024 12:30 PM CDT Telemedicine Department of Cardiovascular Medicine in [place], [place] [address] [place] [phone] Cheryl Bruce M.D., M.S. [address] [place] [address] 10/07/2024 4:52 PM CDT Hospital Encounter Division of Cardiovascular Diseases in [address] [phone] Abnormal Stress Test 10/07/2024 4:52 PM CDT - 10/07/2024 6:07 PM CDT Surgery Division of Cardiovascular Diseases in [address] [phone] Hospice Massage TherapistFred M.D. CORONARY ANGIOGRAPHY WITH POSSIBLE INTERVENTION Scheduled Referrals Name Type Priority Associated Diagnoses Order Schedule Cardiovascular Disease - Education visit (clinic) Outpatient Referral Routine Abnormal Stress Test Expected: 09/21/2024, Expires: 12/22/2025 documented as of this encounter Visit Diagnoses Diagnosis Abnormal Stress Test- Primary Abnormal Stress Test- Primary Abnormal Stress Test documented in this encounter Care Teams Direct Care Counselor Relationship Specialty Start Date End Date Elsewhere, Pcp PCP - General Internal Medicine 03/09/24 documented as of this encounter
--- OUTSIDE RECORDS SUMMARY | 2024-09-23 09:37 | XMS_ITS | Encounter Summary ---
Author Organization [facility] Address [address] [place] [address] Care Team Providers Care Section Laborer Name Role Phone Elsewhere, Pcp Primary Care Provider Unavailabl e Reason for Referral * Outpatient (Routine) - Closed Specialty Diagnoses / Procedures Referred By Crow olivo Referred To Contact Radiology Diagnoses Chronic Failure Renal End Stage Renal Disease Dialysis Dependent (HCC) Complication Dialysis Catheter Subsequent Procedures IR Dialysis / High Flow Catheter Exchange Carrington Perrin Jr., D.O. [address] [place] [address] Phone: tel: fax: [facility] Referral ID Status Reason Start Date Expiration Date Visits Re quested Visits Authorized [id number] Closed 09/22/2024 12/23/2025 1 1 Reason for Visit * Outpatient (Routine) - Closed Specialty Diagnoses / Procedures Referred By Crow olivo Referred To Contact Radiology Diagnoses Chronic Failure Renal End Stage Renal Disease Dialysis Dependent (HCC) Complication Dialysis Catheter Subsequent Procedures IR Dialysis / High Flow Catheter Exchange Carrington Perrin Jr., D.O. 200 [place] [address] Phone: tel: fax: [facility] Referral ID Status Reason Start Date Expiration Date Visits Re quested Visits Authorized [id number] Closed 09/22/2024 12/23/2025 1 1 Encounter Details Date Type Department Care Team (Latest Contact Info) Description 09/23/2024 9:37 AM CDT - 09/23/2024 1:59 PM CDT Hospital Encounter Department of Radiology in [place], [place] [address] [place] [address] Carrington Perrin Jr., D.O. [address] [place] [phone] Emigdio Colon M.D. [address] [place] [phone] Chronic Failure Renal End Stage Renal Disease Dialysis Dependent (HCC); Complication Dialysis Catheter Subsequent Discharge Disposition: Home or Self Care Social History Tobacco Use Types Packs/Day Years Used Date Smoking Tobacco: Never Smokeless Tobacco: Never Alcohol Use Standard Drinks/Week Comments Never 0 (1 standard drink = 0.6 oz pur e alcohol) [facility] Utilities Answer Date Recorded In the past 12 months has [employer], gas, oil, or water [employer] threatened to shut off services in your [...] your living situation today? I have a [facility] place to live 11/07/2023 Comments No Sex and Gender Information Value Date Recorded Sex Assigned at Female 03/13/2023 1:38 PM AUTOMATION CONTROL TECHNICIAN Legal Sex Female 10:08 PM AUTOMATION CONTROL TECHNICIAN Gender Identity Female 03/13/2023 1:42 PM AUTOMATION CONTROL TECHNICIAN Sexual Orientation Straight 03/13/2023 1: 42 PM AUTOMATION CONTROL TECHNICIAN documented as of this encounter Last Filed Vital Signs Vital Sign Reading Time Taken Comments Blood Pressure 139/81 09/23/2024 1:30 PM CDT Pulse 74 09/23/2024 1:30 PM CDT Temperature 36.7 C (98.1 F) 09/23/2024 1:00 PM CDT Respiratory Rate 14 09/23/2024 1:30 PM CDT Oxygen Saturation 96% 09/23/2024 1:30 PM CDT Inhaled Oxygen Concentration - - Weight 113 kg (249 lb 12.5 oz) 09/23/2024 10:53 AM CDT Height - - Body Mass Index 47.77 09/21/2024 9:54 AM CDT documented in this encounter Discharge Instructions * Attachments The following attachments cannot be sent through Care Everywhere. * Your High-Flow Central Venous Catheter (Greenlandic) documented in this encounter Medications at Time [...] tablet 3 07/23/2024 3:08 PM CDT 07/23/2024 06/06/202 6 lidocaine-priloc lew (Emla) 2.5-2.5 % cream Apply 1 Application topically See Admin Instructions. 2 hours prior to dialysis. 30 g 11 03/29/2024 warfarin (Jantoven) 2 mg tablet TAKE 2&1/2 TABLETS (5MG) BY MOUTH EVERY EVENING 225 tablet 1 05/10/2024 documented as of this encounter H&P Notes * Emigdio Colon M.D. - 09/23/2024 11:45 AM CDT SUBJECTIVE CHIEF COMPLAINT / REASON FOR VISIT Leny Ramirez is a 48 y.o. female who presents for exchange of dialysis catheter. HISTORY OF PRESENT ILLNESS/MODERATE SEDATION Consents Obtained: [...] Review of systems: pertinent ROS negative Mallampati: III - soft palate, base of uvula visible Heart: normal Lung: normal General / [...] CDT Telemedicine Department of Cardiovascular Medicine in [place], [place] [address] [place] [address] Cheryl Bruce M.D., M.S. [address] [place] [address] 10/07/2024 4:52 PM CDT Hospital Encounter Division of Cardiovascular Diseases in [place], [place] [address] [place] [address] Abnormal Stress Test 10/07/2024 4:52 PM CDT - 10/07/2024 6:07 PM CDT Surgery Division of Cardiovascular Diseases in [place] [address] [place] [address] Client Business Manager, Bertha Ibarra. CORONARY ANGIOGRAPHY WITH POSSIBLE INTERVENTION documented as of this encounter Procedures Procedure Name Priority Date/Time Associated Diagnosis Comments IR DIALYSIS / HIGH FLOW CATHETER EXCHANGE RAD - Routine (most inpatients and all outpatients) 09/23/2024 12:39 PM CDT Chronic Failure Renal End Stage Renal Disease Dialysis Dependent (HCC) Complication Dialysis Catheter Subsequent documented in this encounter Results * IR Dialysis / High Flow Catheter Exchange (09/23/2024 12:39 PM CDT) Anatomical Region Laterality Modality Body, Vascular Interventiona l RST LOS, Vascular Interventional ARZ LOS, Vascular Interventional FLA LOS N/A X-Ray Angiography Impressions 09/23/2024 1:10 PM CDT 1. Exchange of the tunneled right IJ dialysis catheter, following balloon disruption of a significant fibrin sleeve. New catheter is ready for use. NR Narrative 09/23/2024 1:10 PM CDT EXAM: IR DIALYSIS / HIGH FLOW CATHETER EXCHANGE CLINICAL HISTORY: Malfunctioning tunneled right IJ dialysis catheter. TECHNIQUE: Right chest wall and tunneled dialysis catheter site prepped and draped sterilely. You could see an exposed cuff of the catheter. A oil prospecting observer view showed a right IJ Pristine tunneled dialysis catheter with the tip in the upper right atrium. It was removed over 2 stiff Glidewires. A vascular sheath was advanced over one of the wires into the central right IJ. A venogram was performed of the right innominate vein and SVC. High-grade fibrin sleeve was noted. 12 mm venoplasty was performed across the right atrium, SVC, right innominate vein and the central right IJ. With the sheath in place, I put a pursestring suture at the tunnel entrance site with 4-0 Vicryl to reduce oozing. We did not have a 19 cm Pristine catheter in stock. Therefore, a 19 cm Palindrome dialysis catheter was advanced over the wires and the tip positioned within the mid right atrium. No change in heart rate or rhythm. Lumens flushed and aspirated easily. Each was flushed with sodium citrate and caps placed. Catheter sutured to the skin with [...] time was: 25 minutes. Estimated blood loss: minimal. Procedure Note Emigdio Colon M.D. - 09/23/2024 EXAM: IR DIALYSIS / HIGH FLOW CATHETER EXCHANGE CLINICAL HISTORY: Malfunctioning tunneled right IJ dialysis catheter. TECHNIQUE: Right chest wall and tunneled dialysis catheter site preppedand draped sterilely. You could see an exposed cuff of the catheter. Ascout view showed a right IJ Pristine tunneled dialysis catheter with thetip in the upper right atrium. It was removed over 2 stiff Glidewires. A vascular sheath was advanced over oneof the wires into the central right IJ. A venogram was performed of theright innominate vein and SVC. High-grade fibrin sleeve was noted. 12 mmvenoplasty was performed across the right atrium, SVC, right innominate vein and the central right IJ. Withthe sheath in place, I put a pursestring suture at the tunnel entrancesite with 4-0 Vicryl to reduce oozing. We did not have a 19 cm Pristinecatheter in stock. Therefore, a 19 cm Palindrome dialysis catheter was advanced over the wires and the tippositioned within the mid right atrium. No change in heart rate or rhythm.Lumens flushed and aspirated easily. Each was flushed with sodium citrateand caps placed. Catheter sutured to the skin with [...] sedation timewas: 25 minutes. Estimated blood loss: minimal. IMPRESSION: 1. Exchange of the tunneled right IJ dialysis catheter, following balloondisruption of a significant fibrin sleeve. New catheter is ready foruse. NR us Urvashi Mahmood Jr. IR PROCEDURES Fi nal Result documented in this encounter Visit Diagnoses Diagnosis Abnormal Stress Test- Primary Chronic Failure Renal End Stage Renal Disease Dialysis Dependent (HCC) Complication Dialysis Catheter Subsequent Abnormal Stress Test documented in this encounter Administered Medications Inactive Administered Medications - up to 3 most recent administrations Medication Order MAR Action Action Date Dose Rate Site ceFAZolin injection 2 g (Ancef) 2 g, intravenous, Once, On Liv 09/23/24 at 1115, For 1 dose, Preprocedure (RAD), For immediate IV push administration, reconstitute vial per IVAG or package insert instructions. See IVAG for administration guidelines., Drug Monitoring Program: Pharmacist to adjust medication dosing based on indication and drug clearance factors., Indications: Prophylaxis, surgicalIndications:Prophylaxis, surgical Given 09/23/2024 11:12 AM CDT 2 g fentaNYL injection 25 mcg [...] less than 8 breaths/minute., Starting on Liv 09/23/24 at 1136, Intraprocedure (RAD), Subsequent doses Given 09/23/2024 12:28 PM CDT 25 mcg Given 09/23/2024 12:25 PM CDT 25 mcg Given 09/23/2024 12:17 PM CDT 25 mcg fentaNYL injection 50 mcg (Sublimaze) 50 mcg, intravenous, Once as needed, sedation, Starting on Liv 09/23/24 at 1136, For 1 dose, Intraprocedure (RAD), IV Push flumazeniL injection 0.2 mg (Romazicon) 0.2 mg, intravenous, Once as needed, reversal, Starting on Liv 09/23/24 at 1136, For 1 dose, Intraprocedure (RAD), Administer once if patient has a RASS score of -4, -5 and has a respiratory rate less than 8 breaths/minute. iohexoL 300 mg iodine/mL solution (Omnipaque) As needed, Starting on Liv 09/23/24 at 1239, Intra-Op Given 09/23/2024 12:39 PM CDT 10 mL lidocaine-sodium bicarbonate (buffered) 0.9%-0.84% injection infiltration, As needed, Starting on Liv 09/23/24 at 1239, Intra-Op Given 09/23/2024 12:39 PM CDT 12 mL midazolam (PF) injection 0.5 mg (Versed) 0.5 mg, intravenous, Once as needed, sedation, Starting on Liv 09/23/24 at 1136, For 1 dose, Intraprocedure (RAD) midazolam (PF) injection 0.5 mg (Versed) 0.5 mg, intravenous, Every 2 min PRN, sedation, RASS -1, Starting on Liv 09/23/24 at 1136, For 3 hours, Intraprocedure (RAD), May repeat every 2 minutes for a maximum of 5 mg. Do not give if respiratory rate is less than 8 breaths/minute. Given 09/23/2024 12:28 PM CDT 0.5 mg Given 09/23/2024 12:25 PM CDT 0.5 mg Given 09/23/2024 12:17 PM CDT 0.5 mg NaCl 0.9% infusion 20 mL/hr, intravenous, Once as needed, to keep vein open, Starting on Liv 09/23/24 at 1136, For 1 dose, Intraprocedure (RAD) naloxone injection 0.2 mg (Narcan) 0.2 mg, intravenous, Once as needed, respiratory depression, Starting on Liv 09/23/24 at 1136, For 1 dose, Intraprocedure (RAD), Administer once if patient has a RASS score of -4, -5 and has a respiratory rate less than 8 breaths/minute. ondansetron (PF) injection 4 mg (Zofran) 4 mg, intravenous, Once as needed, nausea, vomiting, Starting on Liv 09/23/24 at 1136, For 1 dose, Intraprocedure (RAD) sodium citrate 4 % injection As needed, Starting on Liv 09/23/24 at 1240, Intra-Op Given 09/23/2024 12:40 PM CDT 3 mL sodium citrate 4 % injection As needed, Starting on Liv 09/23/24 at 1241, Intra-Op Given 09/23/2024 12:41 PM CDT 3 mL documented in this encounter Active and Recently Administered Medications Times are shown in CDT. Scheduled Medication Order 09/21/2024 09/22/2024 09/23/2024 ceFAZolin injection 2 g (Ancef) (COMPLETED) 2 g, intravenous, Once, On Liv 09/23/24 at 1115, For 1 dose, Preprocedure (RAD), For immediate IV push administration, reconstitute vial per IVAG or package insert instructions. See IVAG for administration guidelines., Drug Monitoring Program: Pharmacist to adjust medication dosing based on indication and drug clearance factors., Indications: Prophylaxis, surgical 1112 (Given - Provid er: Karen Sims R.N.) PRN Medication Order 09/21/2024 09/22/2024 09/23/2024 fentaNYL injection 25 mcg (Sublimaze) 25 mcg, [...] less than 8 breaths/minute., Starting on Liv 09/23/24 at 1136, Intraprocedure (RAD), Subsequent doses 1201 (Given - Provid er: Ibis JoyceS.N., R.N.)1217 (Given - Provider: Ibis JoyceSJanieN., R.N.)1225 (Given - Provider: Ibis JoyceS.N., R.N.)1228 (Given - Provider: Ibis JoyceS.N., R.N.) fentaNYL injection 50 mcg (Sublimaze) 50 mcg, intravenous, Once as needed, sedation, Starting on Liv 09/23/24 at 1136, For 1 dose, Intraprocedure (RAD), IV Push flumazeniL injection 0.2 mg (Romazicon) 0.2 mg, intravenous, Once as needed, reversal, Starting on Liv 09/23/24 at 1136, For 1 dose, Intraprocedure (RAD), Administer once if patient has a RASS score of -4, -5 and has a respiratory rate less than 8 breaths/minute. iohexoL 300 mg iodine/mL solution (Omnipaque) (COMPLETED) As needed, Starting on Liv 09/23/24 at 1239, Intra-Op 1239 (Given - Provid er: Emigdio Colon M.D.) lidocaine-sodium bicarbonate (buffered) 0.9%-0.84% injection (COMPLETED) infiltration, As needed, Starting on Liv 09/23/24 at 1239, Intra-Op 1239 (Given - Provid er: Emigdio Colon M.D.) midazolam (PF) injection 0.5 mg (Versed) 0.5 mg, intravenous, Once as needed, sedation, Starting on Liv 09/23/24 at 1136, For 1 dose, Intraprocedure (RAD) midazolam (PF) injection 0.5 mg (Versed) 0.5 mg, intravenous, Every 2 min PRN, sedation, RASS -1, Starting on Liv 09/23/24 at 1136, For 3 hours, Intraprocedure (RAD), May repeat every 2 minutes for a maximum of 5 mg. Do not give if respiratory rate is less than 8 breaths/minute. 1201 (Given - Provid er: Kyaw Joyce.S.N., R.N.)1217 (Given - Provider: Ibis JoyceS.N., R.N.)1225 (Given - Provider: Ibis JoyceS.N., R.N.)1228 (Given - Provider: Ibis JoyceS.N., R.N.) NaCl 0.9% infusion 20 mL/hr, intravenous, Once as needed, to keep vein open, Starting on Liv 09/23/24 at 1136, For 1 dose, Intraprocedure (RAD) 1134 (Stopped - Prov ider: Maria Del Rosario Calderon R.N.) naloxone injection 0.2 mg (Narcan) 0.2 mg, intravenous, Once as needed, respiratory depression, Starting on Liv 09/23/24 at 1136, For 1 dose, Intraprocedure (RAD), Administer once if patient has a RASS score of -4, -5 and has a respiratory rate less than 8 breaths/minute. ondansetron (PF) injection 4 mg (Zofran) 4 mg, intravenous, Once as needed, nausea, vomiting, Starting on Liv 09/23/24 at 1136, For 1 dose, Intraprocedure (RAD) sodium citrate 4 % injection (COMPLETED) As needed, Starting on Liv 09/23/24 at 1240, Intra-Op 1240 (Given - Provid er: Emigdio Colon M.D.) sodium citrate 4 % injection (COMPLETED) As needed, Starting on Liv 09/23/24 at 1241, Intra-Op 1241 (Given - Provid er: Emigdio Colon M.D.) documented in this encounter Care Teams Section Laborer Relationship Specialty Start Date End Date Elsewhere, Pcp PCP - General Internal Medicine 03/09/24 documented as of this encounter
--- OUTSIDE RECORDS SUMMARY | 2024-09-25 15:03 | XMS_ITS | Encounter Summary ---
Author Organization [facility] Address [address] [place] [address] Care Team Providers Care Retail Sales Assistant Name Role Phone Elsewhere, Pcp Primary Care Provider Unavailabl e Encounter Details Date Type Department Care Team (Late st Contact Info) Description 08/04/2024 Orders Only Division of Nephrology and Hypertension in [place], [place] [address] [place] [place] [phone] Nicholas Tracey P, MAGY, C.N.P., M.S.N. [address] [place] [phone] Social History Tobacco Use Types Packs/Day Years Used Date Smoking Tobacco: Never Smokeless Tobacco: Never Alcohol Use Standard Drinks/Week Comments Never 0 (1 standard drink = 0.6 oz pur e alcohol) [facility] Utilities Answer Date Recorded In the past 12 months has e [employer], gas, oil, or water [employer] threatened to shut off services in your [...] your living situation today? [facility] 11/07/2023 Comments No Sex and Gender Information Value Date Recorded Sex Assigned at Female 03/13/2023 1:38 PM DENTAL ASSOCIATE Legal Sex Female 10:08 PM DENTAL ASSOCIATE Gender Identity Female 03/13/2023 1:42 PM DENTAL ASSOCIATE Sexual Orientation Straight 03/13/2023 1: 42 PM DENTAL ASSOCIATE documented as of this encounter Plan of Treatment Upcoming Encounters Date Type Department Care Team (Latest Contact Info) Description 10/06/2024 12:30 PM CDT Telemedicine Department of Cardiovascular Medicine in [place], [place] [address] [place] [address] Cheryl Bruce M.D., M.S. [address] [place] [address] 10/07/2024 4:52 PM CDT Hospital Encounter Division of Cardiovascular Diseases in [place], [place] [address] [place] [phone] Abnormal Stress Test 10/07/2024 4:52 PM CDT - 10/07/2024 6:07 PM CDT Surgery Division of Cardiovascular Diseases in [place], [place] [address] [place] [phone] [employer] FounderFred M.D. CORONARY ANGIOGRAPHY WITH POSSIBLE INTERVENTION documented as of this encounter Visit Diagnoses Not on filedocumented in this encounter Care Teams Retail Sales Assistant Relationship Specialty Start Date End Date Elsewhere, Pcp PCP - General Internal Medicine 03/09/24 documented as of this encounter
--- OUTSIDE RECORDS SUMMARY | 2024-09-25 15:04 | XMS_ITS | Clinical Summary ---
Author Organization [facility] Address [address] [place] [address] Care Team Providers Care Electric Lineman Name Role Phone No Ref-Primary, Physician Primary [...] of Treatment Not on file Care Teams Electric Lineman Relationship Specialty Start Date End Date No Ref-Primary, Physician PCP - General 05/25/21
--- OUTSIDE RECORDS SUMMARY | 2024-09-25 15:04 | XMS_ITS | Encounter Summary ---
Author Organization [facility] Address [address] [place] [address] Care Team Providers Care Parimutuel Ticket Checker Name Role Phone Elsewhere, Pcp Primary Care Provider Unavailabl e Encounter Details Date Type Department Care Team (Late st Contact Info) Description 07/13/2024 Clinical Communication Division of Nephrology and Hypertension in [place], [place] [address] [place] [address] Sheree Franz M.D. [address] [place] [phone] Social History Tobacco Use Types Packs/Day Years Used Date Smoking Tobacco: Never Smokeless Tobacco: Never Alcohol Use Standard Drinks/Week Comments Never 0 (1 standard drink = 0.6 oz pur e alcohol) [facility] Utilities Answer Date Recorded In the past 12 months has [employer], gas, oil, or water [employer] threatened to shut off services in [...] your living situation today? I have a [facility] place to live 11/07/2023 Comments No Sex and Gender Information Value Date Recorded Sex Assigned at Female 03/13/2023 1:38 PM NETWORKING TECHNICIAN Legal Sex Female 10:08 PM NETWORKING TECHNICIAN Gender Identity Female 03/13/2023 1:42 PM NETWORKING TECHNICIAN Sexual Orientation Straight 03/13/2023 1: 42 PM NETWORKING TECHNICIAN documented as of this encounter Miscellaneous Notes * Telephone Encounter - Roddy Hernandez - 07/13/2024 7:[address] [facility] called and they are cancelling the following test: Pancreas/Kidney Storage, Urine [[id number]] They dont have enough urine to run that test but will run the others you ordered as part of the random urine. Wanted to let you know. Thanks Roddy documented in this encounter Plan of Treatment Upcoming Encounters Date Type Department Care Team (Latest Contact Info) Description 10/06/2024 12:30 PM CDT Telemedicine Department of Cardiovascular Medicine in [place], [place] [address] [place] [address] Cheryl Bruce M.D., M.S. [address] [place] [phone] 10/07/2024 4:52 PM CDT Hospital Encounter Division of Cardiovascular Diseases in [address] [phone] Abnormal Stress Test 10/07/2024 4:52 PM CDT - 10/07/2024 6:07 PM CDT Surgery Division of Cardiovascular Diseases in [address] [phone] RegrinderFred M.D. CORONARY ANGIOGRAPHY WITH POSSIBLE INTERVENTION documented as of this encounter Visit Diagnoses Not on filedocumented in this encounter Care Teams Parimutuel Ticket Checker Relationship Specialty Start Date End Date Elsewhere, Pcp PCP - General Internal Medicine 03/09/24 documented as of this encounter
--- OUTSIDE RECORDS SUMMARY | 2024-09-25 15:04 | XMS_ITS | Encounter Summary ---
Author Organization [facility] Address [address] [place] [address] Care Team Providers Care Bender Hand Name Role Phone Elsewhere, Pcp Primary Care Provider Unavailabl e Encounter Details Date Type Department Care Team (Late st Contact Info) Description 09/01/2024 Orders Only Division of Nephrology and Hypertension in [place], [place] [address] [place] [address] Carrington Perrin Jr., D.O. [address] [place] [phone] Complication Dialysis Catheter Subsequent (Primary Dx) Social History Tobacco Use Types Packs/Day Years Used Date Smoking Tobacco: Never Smokeless Tobacco: Never Alcohol Use Standard Drinks/Week Comments Never 0 (1 standard drink = 0.6 oz pur e alcohol) [facility] Utilities Answer Date Recorded In the past 12 months has e [employer], gas, oil, or water [employer] threatened to shut off services in [...] your living situation today? I have a [facility] place to live 11/07/2023 Comments No Sex and Gender Information Value Date Recorded Sex Assigned at Female 03/13/2023 1:38 PM MOBILE DISC JOCKEY Legal Sex Female 10:08 PM MOBILE DISC JOCKEY Gender Identity Female 03/13/2023 1:42 PM MOBILE DISC JOCKEY Sexual Orientation Straight 03/13/2023 1: 42 PM MOBILE DISC JOCKEY documented as of this encounter Plan of Treatment Upcoming Encounters Date Type Department Care Team (Latest Contact Info) Description 10/06/2024 12:30 PM CDT Telemedicine Department of Cardiovascular Medicine in [place], [place] [address] [place] [phone] Cheryl Bruce M.D., M.S. [address] [place] [address] 10/07/2024 4:52 PM CDT Hospital Encounter Division of Cardiovascular Diseases in [address] [phone] Abnormal Stress Test 10/07/2024 4:52 PM CDT - 10/07/2024 6:07 PM CDT Surgery Division of Cardiovascular Diseases in [address] [place] [phone] [employer] LieutenantFred M.D. CORONARY ANGIOGRAPHY WITH POSSIBLE INTERVENTION documented as of this encounter Visit Diagnoses Diagnosis Complication Dialysis Catheter Subsequent- Primary Abnormal Stress Test- Primary Abnormal Stress Test documented in this encounter Care Teams Bender Hand Relationship Specialty Start Date End Date Elsewhere, Pcp PCP - General Internal Medicine 03/09/24 documented as of this encounter
--- OUTSIDE RECORDS SUMMARY | 2024-09-25 15:04 | XMS_ITS | Clinical Summary ---
Author Organization [facility] Address [address] [place] [id number] Care Team Providers Care Bowling Alley Operator Name Role Phone Elsewhere, Pcp Primary Care Provider Unavailabl e Source Comments Patient records contain information from all sites at [facility]. For routine questions regarding patient records, call [phone] during business hours, M-F 8:00 AM - 5:00 PM Central Time. Record requests for emergency care only can be directed to [phone] at any time.[facility] Allergies No known active allergies Medications acetaminophen (TylenoL) 500 mg tablet Take 500 mg by mouth every 6 (six) hours as needed for pain. Active lidocaine-prilo bernie (Emla) 2.5-2.5 % cream Apply 1 Application topically See Admin Instructions. 2 hours prior to dialysis. 30 g 11 5 03/29/19 26 Active warfarin (Jantoven) 2 mg tablet TAKE 2&1/2 TABLETS (5MG) BY MOUTH EVERY EVENING 225 tablet 1 5 Active Additional Information Patient taking differently: 2 mg oral 2 times daily, Reported on 09/23/2024 carvediloL (Coreg) 12.5 mg tablet Take 1 tablet (12.5 mg total) by mouth 2 (two) times a day with meals. 180 tablet 3 07/23/2024 3:08 PM CDT 5 07/24/19 26 Active calcium carbonate (calcium carbonate EX) 750 mg (300 mg calcium) chewable tablet Chew 2 tablets 3 (three) times a day after meals. Active cephalexin (Keflex) 500 mg capsuleIndicati ons:Complicatio n Dialysis Catheter Subsequent Take 1 capsule (500 mg total) by mouth every 12 (twelve) hours for 7 days. 14 capsule 09/01/2024 8:17 AM CDT 09/09/19 Active Problems Problem Noted Date Diagnosed Date Abnormal Stress Test 09/21/2024 Complication Dialysis Catheter Subsequent 2024 Morbid Obesity Body Mass Index 45.0-49.9 Adult 0 03/09/2024 Chronic Kidney Disease Stage 5 GFR Less [...] Sepsis 11/07/2023 11/12/2023 Fever Of Unknown Origin 11/07/2023 09/2 06/2023 Leukocytosis 11/07/2023 11/12/2023 Encounters Date Type Department Care Team Description 09/23/2024 9:37 AM CDT - 09/23/2024 1:59 PM CDT Hospital Encounter Department of Radiology in [place], [place] [address] [place] [phone] Carrington Perrin Jr., D.O. Emigdio Colon M.D. 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 09/22/2024 Orders Only Division of Nephrology and Hypertension in [place], [place] [address] [place] [address] External, Ordering Provider, Edelmira 09/22/2024 Documentation Division of Nephrology and Hypertension in [place], [place] [address] [place] [address] Carrington Perrin Jr., D.O. 09/22/2024 Orders Only Division of Nephrology and Hypertension in [place], [place] [address] [place] [address] Carrington Perrin Jr., D.O. 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 Abnormal Stress Test (Primary Dx) 09/01/2024 Clinical Communication [facility] Trans[facility] Clinical Regeneration in [place], [place] [address] [place] [phone] Linnette Marti R.N., C.C.T.C. 09/01/2024 Documentation Division of Nephrology and Hypertension in [place], [place] [address] [place] [address] Carrington Perrin Jr., D.O. 09/01/2024 Orders Only Division of Nephrology and Hypertension in [place], [place] [address] [place] [address] Carrington Perrin Jr., D.OJanie Complication Dialysis Catheter Subsequent (Primary Dx) 08/25/2024 Orders Only Division of Nephrology and Hypertension in [place], [place] [address] [place] [address] Nicholas Tracey, MAGY, C.N.P., M.S.N. 08/16/2024 Orders Only [facility] Transplantation [facility] Clinical Regeneration in [place], [place] [address] [place] [phone] Linnette Marti R.N., C.C.T.C. Abnormal Laboratory Results (Primary Dx); Morbid Obesity Body Mass Index 45.0-49.9 Adult (HCC); Chronic Kidney Disease Stage 5 GFR Less Than 15 Dialysis Dependent (HCC); Preoperative Exam 08/12/2024 2:55 PM CDT - 08/12/2024 11:59 PM CDT Hospital Encounter Department of Cardiovascular Diseases in [place], [place] [address] [place] [address] Idalia Hand M.D. Chronic Kidney Disease Stage 5 GFR Less Than 15 Dialysis Dependent (HCC); Hemodialysis Status; Hypertension Essential Primary; Morbid Obesity Body Mass Index 45.0-49.9 Adult (HCC) Discharge Disposition: Home or Self Care 08/06/2024 Orders Only Division of Nephrology and Hypertension in [place], [place] [address] [place] [phone] External, Ordering Edelmira Mcduffie 08/04/2024 Orders Only Division of Nephrology and Hypertension in [place], [place] [address] [place] [address] Nicholas Tracey, MAGY, C.N.P., M.S.N. 07/29/2024 4:00 PM CDT Office Visit [facility] in [place], [place] [address] [place] [address] Idalia Hand M.D. Chronic Kidney Disease Stage 5 GFR Less Than 15 Dialysis Dependent (HCC); Hemodialysis Status; Glomerulonephritis Immunoglobulin A (IgA Nephropathy); Hypertension Essential Primary; Nodule Pulmonary; Morbid Obesity Body Mass Index 45.0-49.9 Adult (HCC) 07/29/2024 11:45 AM CDT Comprehensive Visit [facility] in [place], [place] [address] [place] [address] Yury Husain M.D. Failure Renal End Stage (HCC) (Primary Dx) 07/29/2024 9:00 AM CDT Virtual Visit [facility] in [place], [place] [address] [place] [address] Sheree Franz M.D. Leung, Sarah B, PharmJanieD., R.Ph., BCPS Chronic Kidney Disease Stage 5 GFR Less Than 15 Dialysis Dependent (HCC); Hemodialysis Status; Glomerulonephritis Immunoglobulin A (IgA Nephropathy); Hypertension Essential Primary; Nodule Pulmonary Discharge Disposition: Home or Self Care 07/23/2024 Orders Only Division of Nephrology and Hypertension in [place], [place] [address] [place] [address] Nicholas Tracey APRN, C.N.P., M.S.N. 07/21/2024 Refill Division of Nephrology and Hypertension in [place], [place] [address] [place] [address] Jo Root M.D., Ph.D. Med Refill 07/14/2024 7:54 AM CDT - 07/14/2024 11:59 PM CDT Hospital Encounter Division of Nephrology and Hypertension, [facility], in [place], [place] [address] [place] [address] Nicholas Tracey APRN C.N.P., M.S.N. 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 Scheduling (Pt is sick and needs to reschedule 07/[address] edge) 07/14/2024 Orders Only Division of Nephrology and Hypertension in [place], [place] [address] [facility] [place] [address] Nicholas Tracey APRN, C.N.P., M.S.N. 07/13/2024 2:00 PM CDT Nurse Only Freddy martin [facility] in [place], [place] [address] [place] [phone] Sheree Franz M.D. Nataliia Jackson, R.N. 07/13/2024 11:00 AM CDT Comprehensive Visit Division of Nephrology and Hypertension in [place], [place] [address] [place] [address] Sheree Franz M.D. Jasmyn Fox, RDN, LD Chronic Kidney Disease Stage 5 GFR Less Than 15 Dialysis Dependent (HCC); Hemodialysis Status; Glomerulonephritis Immunoglobulin A (IgA Nephropathy); Hypertension Essential Primary; Nodule Pulmonary 07/13/2024 8:00 AM CDT Clinical Support [facility] Transplantation [facility] Clinical Regeneration in [place], [place] [address] [place] [address] Sheree Franz M.D. Alyse Chang M.S.W., L.I.C.S.W. Chronic Kidney Disease Stage 5 GFR Less Than 15 Dialysis Dependent (HCC); Hemodialysis Status; Glomerulonephritis Immunoglobulin A (IgA Nephropathy); Hypertension Essential Primary; Nodule Pulmonary 07/13/2024 Clinical Communication Division of Nephrology and Hypertension in [place], [place] [address] [place] [address] Sheree Franz M.D. 07/02/2024 Documentation Division of Nephrology and Hypertension in [place] [address] [place] [phone] Nicholas Tracey APRN C.N.PJanie, M.S.N. 07/02/2024 Orders Only Division of Nephrology and Hypertension in [place] [address] [place] [phone] Nicholas Tracey APRN C.N.P., M.S.N. Infection Skin (Primary Dx) from Last 3 Months Immunizations Immunization Administration Dates Next Due DTaP (Infanrix, Tripedia) 03/08/2009 HepB Adult 05/10/2016 Influenza, Injectable, Quadrivalent 11/18/2019 Influenza, Unspecified 11/27/2009,11/17/2008 MMR 05/10/2016 PCV20 04/07/2024 SARS-COV-2 (COVID-19) - PFIZ ER (Discontinued)(12 years or older) 03/07/2021,06/23/2020,06/02/2020 Tdap 05/10/2016,03/08/2009 DIO 05/31/2016 influenza trivalent vaccine (6 months and older)(PF) 12/26/2010 influenza vaccine quad (FLUZ ONE/FLUARIX) (6 months and older)(PF) 12/17/2018,05/10/2016,03/02/2015 Social History Tobacco Use Types Packs/Day Years Used Date Smoking Tobacco: Never Smokeless Tobacco: Never Tobacco Cessation:Counseling Given: Not Answered Alcohol Use Standard Drinks/Week Comments Never 0 (1 standard drink = 0.6 oz pur e alcohol) [facility] Utilities Answer Date Recorded In the past 12 months has e [employer], gas, oil, or water [employer] threatened to shut off services in your [...] your living situation today? I have a [facility] place to live 11/07/2023 Comments No Sex and Gender Information Value Date Recorded Sex Assigned at Female 03/13/2023 1:38 PM SERVICE STATION OPERATOR Legal Sex Female 10:08 PM SERVICE STATION OPERATOR Gender Identity Female 03/13/2023 1:42 PM SERVICE STATION OPERATOR Sexual Orientation Straight 03/13/2023 1: 42 PM SERVICE STATION OPERATOR Last Filed Vital Signs Vital Sign [...] 12.5 oz) 09/23/2024 10:53 AM CDT Height 154 cm (5' 0.63) 09/21/2024 9:54 AM CDT Body Mass Index 47.77 09/21/2024 9:54 AM CDT Plan of Treatment Upcoming Encounters Date Type Department Care Team (Latest Contact Info) Description 10/06/2024 12:30 PM CDT Telemedicine Department of Cardiovascular Medicine in [place], [place] [address] [place] [address] Cheryl Bruce M.D., M.S. [address] [place] [address] 10/07/2024 4:52 PM CDT Hospital Encounter Division of Cardiovascular Diseases in [place], [place] [address] [place] [phone] Abnormal Stress Test 10/07/2024 4:52 PM CDT - 10/07/2024 6:07 PM CDT Surgery Division of Cardiovascular Diseases in [address] [phone] Sample SelectorFred M.D. CORONARY ANGIOGRAPHY WITH POSSIBLE INTERVENTION Health Maintenance Due Date Last Done Comments CT Colonography 1974 Cologuard 1974 Colonoscopy 1974 Colorectal Cancer Screening 1974 FIT 1974 Meningococcal Vaccine (1 - Risk 2-dose series) 1976 MenB Vaccine (1 of 4 - Increased Risk) 1984 Hepatitis B Vaccines (2 of 5 - Risk Dialysis 4-dose series) 06/07/2016 05/10/2016 MMR Vaccines (2 of 2 - Risk 2-dose series) 06/28/2016 05/10/2016 Zoster Vaccines (1 of 2) 07/26/2016 Mammogram 03/07/2017 03/07/2016, 03/07/2016 Cervical/Vaginal Cancer Screening 07/29/2021 07/29/2018 COVID-19 Vaccine ( season) 2023 03/07/2021, 06/23/2020, 06/02/2020 Depression Screening (Annual PHQ-2) 02/18/2024 Influenza Vaccine (#1) 2024 , 12/17/2018, 05/10/2016, Additional history exists Office Visit for Blood Pressure Check / Re-check 12/22/2024 09/21/2024 DTaP,Tdap,and Td Vaccines (4 - Td or Tdap) 05/10/2026 05/10/2016, 03/08/2009, 03/08/2009 Fasting Glucose for Diabetes Screening 03/09/2027 03/09/2024, 03/09/2024, 02/21/2024, Additional history exists Lipid (Cholesterol) Screening 03/09/2029 03/09/2024, 07/29/2018 Hepatitis C Screening Completed 03/09/2024 Pneumococcal vaccine (0-49 years) Completed 04/07/2024 IPV Vaccines Aged Out No longer eligi ble based on patient's age to complete this topic Medical Devices Implanted Type Area Radiology Director Device Identifier Shelf Expiration Date Model / Serial / Lot Clp Lgc Lgt Ti - [id number] Implanted:Qty : 1 on 02/05/2024 by Glen Baker M.D. at [facility] Hardware e.g. pins/screws/ rods Left: Arm Ethicon LT100 / / Clp Hrzn Ti 6 Clp [place] - [id number] Implanted:Qty : 1 on 02/05/2024 by Glen Baker M.D. at [facility] Hardware e.g. pins/screws/ rods Left: Arm [employer] [id number] / / Clp Lgc Lgt Ti Sm - [id number] Implanted:Qty : 1 on 02/05/2024 by Glen Baker M.D. at [facility] Hardware e.g. 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) Complication Dialysis Catheter Subsequent EXTM INR, POCT, B Routine 09/22/2024 7:0 0 AM CDT ECHO STRESS 2D WITH COLOR, LIMITED DOPPLER AND CONTRAST Routine 08/12/2024 4:32 PM CDT Chronic Kidney Disease Stage 5 GFR Less Than 15 Dialysis Dependent (HCC) Hemodialysis Status Hypertension Essential Primary Morbid Obesity Body Mass Index 45.0-49.9 Adult (HCC) ECG Routine 08/12/2024 2:44 PM CDT Chronic Kidney Disease Stage 5 GFR Less Than 15 Dialysis Dependent (HCC) Hemodialysis Status Glomerulonephritis Immunoglobulin A (IgA Nephropathy) Hypertension Essential Primary Morbid Obesity Body Mass Index 45.0-49.9 Adult (HCC) EXTM INR, POCT, B Routine 08/06/2024 5:50 AM CDT DHALIWAL/KID STORAGE, U Routine 07/13/2024 6: 40 AM CDT Chronic Kidney Disease Stage 5 GFR Less Than 15 Dialysis Dependent (HCC) Glomerulonephritis Immunoglobulin A (IgA Nephropathy) Pretransplant Recipient Evaluation Exam DHALIWAL/KID POST TRANS STORAGE, B Routine 07/13/2024 6:36 AM CDT Chronic Kidney Disease Stage 5 GFR Less Than 15 Dialysis Dependent (HCC) Glomerulonephritis Immunoglobulin A (IgA Nephropathy) Pretransplant Recipient Evaluation Exam DIPSTICK, U Routine 07/13/2024 6:33 AM CDT GA OSMOLALITY ASSAY URINE Routine 07/13/2024 6:33 AM CDT PH, RANDOM, U Routine 07/13/2024 6:33 AM CDT MICROSCOPIC MANUAL Routine 07/13/2024 6: 33 AM CDT PROTEIN/CREATININE RATIO, RANDOM, URINE Routine 07/13/2024 6:[address], U Routine 07/13/2024 6:33 AM CDT ETHYL GLUCURONIDE SCRN W/REFLEX, U Routine 07/13/2024 6:33 AM CDT URINALYSIS WITH MICROSCOPIC Routine 07/13/2024 6:33 AM CDT CONFIRMED DRUG ABUSE PANEL 9, U Routine 07/13/2024 6:33 AM CDT BACTERIAL CULTURE, AEROBIC + SUSC, URINE Routine 07/13/2024 6:33 AM CDT HCV AB SCRN W/REFLEX TO HCV PCR, S Routine 03/09/2024 7:03 AM SERVICE STATION OPERATOR Chronic Kidney Disease Stage 5 GFR Less Than 15 Dialysis Dependent (HCC) Hemodialysis Status (HCC) Glomerulonephritis Immunoglobulin A (IgA Nephropathy) Hypertension Essential Primary Nodule Pulmonary HEMOGLOBIN A1C, B Routine 03/09/2024 7:0 2 AM SERVICE STATION OPERATOR Chronic Kidney Disease Stage 5 GFR Less Than 15 Dialysis Dependent (HCC) Hemodialysis Status (HCC) Glomerulonephritis Immunoglobulin A (IgA Nephropathy) Hypertension Essential Primary Nodule Pulmonary LIPID PANEL, S Routine 03/09/2024 7:02 AM SERVICE STATION OPERATOR Chronic Kidney Disease Stage 5 GFR Less Than 15 Dialysis Dependent (HCC) Hemodialysis Status (HCC) Glomerulonephritis Immunoglobulin A (IgA Nephropathy) Hypertension Essential Primary Nodule Pulmonary from Last 3 Months or Most Recently [...] an exposed cuff of the catheter. A customer service sales associate view showed a right IJ Pristine tunneled [...] sleeve. New catheter is ready foruse. NR Carrington Perrin Jr. DJanieO. IMG IR PROCEDURES Fi nal Result * (ABNORMAL) EXT INR, POCT (09/22/2024 7:00 AM CDT) Only the most recent of2 resultswithin the time period is included. EXT INR 1.28(H) 0.91 - 1.10 ML [facility] 09/22/2024 7:00 AM CDT Narrative [facility] - 09/22/2024 1:54 PM CDT External results verified in Extract by Itz Carney on 09/22/2024 at 01:53 PM. us Ordering Provider External M.D. LAB POCT ORDERAB LES-MANUAL Final Result [facility] [address] [place] [address], [facility] [phone] * ECHO STRESS 2D WITH COLOR, LIMITED [...] per Echocardiography Contrast Administration Protocol Reference Document [id number] Rev 07/02/2024. Patient met an inclusion criterion and did not have contraindications in screening sections. CO-SIGNATURE:The electronic signature of the responsible supervising echo physician in this report also provides authentication within the electronic health record for the medication(s) initiated in [facility] and listed within this report. These [...] abnormalities were seen at mid ventricular level. [facility] Procedure Note Carrington Moreira M.D. - 08/12/2024 [...] a heart rate of 81 BPM (ischemic ubetvkhhi05%). 5. Ejection fraction response from 60% at [...] administered per Echocardiography Contrast Administration ProtocolReference Document [id number] Rev 07/02/2024. Patient met an inclusioncriterion and did not have contraindications in screening sections. CO-SIGNATURE:The electronic signature of the responsible supervising echophysician in this report also provides [facility] for the medication(s) initiated in [facility] andlisted within this report. These medications were administered for theperformance of this echo procedure and were given per institutionalprotocol. For the complete report, see the Order-Level Documents. Idalia Hand M.D. CV ECHO PROCEDURES Final R esult * ECG 12 Lead (08/12/2024 2:44 PM CDT) Ventricular Rate ECG/Min 66 BPM MUSE GA Interval 142 ms MUSE QRSD Interval 96 ms MUSE QT Interval 438 ms MUSE QTC Interval 459 ms MUSE P [place]ide 20 degrees MUSE R [place] 17 degrees MUSE T Wave [place] 20 degrees MUSE 08/12/2024 2:44 PM CDT 08/12/2024 3:14 PM CDT Impressions MUSE - 08/12/2024 3:14 PM CDT Normal sinus rhythm Normal ECG When compared with ECG of 09-Mar-2024 07:26, No significant change was found Reviewed by BESSY Bean Narrative Procedure Note Kala Campos M.D., Ph.D. - 08/12/2024 IMPRESSION: Normal sinus rhythm Normal ECG When compared with ECG of 09-Mar-2024 07:26, No significant change was found Reviewed by BESSY Bean us Idalia Hand M.D. ECG ORDERABLES Final Resu lt Performing Organization Address [facility] Co de Phone Number MUSE NA * Pancreas/Kidney Storage, Urine (07/13/2024 6:40 AM CDT) Dhaliwal/Kid Storage, U CANCELED 07/13/2024 7:25 AM CDT HSS Comment: REVISED RESULTS ----PREVIOUSLY REPORTED ---- Collected Flagged as: N/A (Reported 07/13/2024 06:40) Urine (Urine, Midstream) 07/13/2024 6:40 AM CDT 07/13/2024 6:40 AM CDT Narrative [facility] - 07/13/2024 7:25 AM CDT Dhaliwal/Kid Storage, U was cancelled on 07/13/2024 at 07:25; Quantity was not sufficient for testing. !CNCL! us Sheree Franz M.D. LAB URINE ORDERABLES Ed ited Result - Final Performing Organization Address [facility] de Phone Number [facility] [address] [place] [address], [facility] HSS [facility] [address] [place] [address] * Dhaliwal/Kid 5cc Storage, Blood (07/13/2024 6:36 AM CDT) Storage, Red Collected DEFAULT 07/13/2024 6:36 AM CDT HSS Storage, ACD Collected DEFAULT 07/13/2024 6:36 AM CDT HSS Blood (Blood, Venous) 07/13/2024 6:36 AM CDT 07/13/2024 6:36 AM CDT Narrative [facility] - 07/13/2024 6:36 AM CDT Specimen Information: Specimen ID: [id number] Specimen Type: Blood Specimen Collection Start Date: 07/13/2024 6:36 AM Specimen Received Date: 07/13/2024 6:36 AM Specimen ID: [id number] Specimen Collection Start Date: 07/13/2024 6:36 AM Specimen Received Date: 07/13/2024 6:36 AM us Sheree Franz M.D. LAB BLOOD ADD-ON Final Result Performing Organization Address City/[facility]/ZIP Co de Phone Number [facility] [address] [place] [address] * Osmolality, Urine (07/13/2024 6:33 AM CDT) Pathologist [facility] Osmolality, U 271 150 - 1150 mOsm/kg 07/13/2024 8:30 AM CDT DTL Urine 07/13/2024 6:33 AM CDT 07/13/2024 7:36 AM CDT us Sheree Franz M.D. LAB URINE ORDERABLES Fi nal Result Performing Organization Address [facility]/ZIP Co de Phone Number [facility] [address] DTL [facility] [address] [place] [address] * (ABNORMAL) Dipstick, Urine (07/13/2024 6:33 AM CDT) Hemoglobin, QL, U Trace(A) Negative 07/13/2024 8:02 AM CDT DTL Leukocyte Esterase, U Negative Negative 07/13/2024 8:02 AM CDT DTL Nitrite, U Negative Negative 07/13/2024 8:02 AM CDT DTL Ketone, U Negative Negative mg/dL 07/13/2024 8:02 AM CDT DTL Glucose, U Negative Negative mg/dL 07/13/2024 8:02 AM CDT DTL Urine 07/13/2024 6:33 AM CDT 07/13/2024 7:36 AM CDT us Sheree Franz M.D. LAB URINE ORDERABLES Fi nal Result Performing Organization Address City/[facility] Co de Phone Number [facility] [address] [place] [address], [facility] [address] [place] [address] * pH, Random, Urine (07/13/2024 6:33 AM CDT) pH, Random, U 6.3 4.5 - 8.0 07/13/2024 8:30 AM CDT DTL Urine 07/13/2024 6:33 AM CDT 07/13/2024 7:36 AM CDT us Sheree Franz M.D. LAB URINE ORDERABLES Fi nal Result Performing Organization Address [facility] de Phone Number [facility] [address] [place] [address], [facility] [address] [place] [address] * (ABNORMAL) Microscopic Manual (07/13/2024 6:33 AM CDT) Microscopy Abnormal 07/13/2024 9:32 AM CDT DTL RBC <3 <3 /hpf 07/13/2024 9:32 AM CDT DTL WBC 1-3 /hpf 07/13/2024 9:32 AM CDT DTL Comment: ----REFERENCE VALUE---- <4 (Males) <11 (Females) Squamous Epithelial Cells, U 4-10 /hpf 07/13/2024 9:32 AM CDT DTL Bacteria Present(A) 07/13/2024 9:32 AM CDT DTL Urine 07/13/2024 6:33 AM CDT 07/13/2024 7:36 AM CDT us Sheree Franz M.D. LAB URINE ORDERABLES Fi nal Result Performing Organization Address City/[facility]/ZIP Co de Phone Number [facility] [address] [place] [address] * Bacterial Culture, Aerobic + Susceptibility, Urine (07/13/2024 6:33 AM CDT) Urine Culture Urogenital microbiota, susceptibilities not performed per laboratory criteria. 07/14/2024 7:22 AM CDT DTL Urine, Midstream 07/13/2024 6:33 AM CDT 07/13/2024 9:35 AM CDT us Sheree Franz M.D. LAB MICROBIOLOGY - GENE RAL ORDERABLES Final Result Performing Organization Address [facility] Co de Phone Number [facility] [address] [place] [address] * (ABNORMAL) Gram Stain, Urine (07/13/2024 6:33 AM CDT) Source Urine, Urine, Midstream 07/13/2024 8:31 AM CDT DTL Gram Stain, U Positive(A) Negative 07/13/2024 7:53 AM CDT DTL Comment:Many Gram-positive b acilli Urine 07/13/2024 6:33 AM CDT 07/13/2024 7:35 AM CDT us Sheree Franz M.D. LAB URINE ORDERABLES Fi nal Result Performing Organization Address City/[facility]/ZIP Co de Phone Number [facility] [address] [facility] [place] [address] [place] [address] * Ethyl Glucuronide Screen with Reflex, Urine (07/13/2024 6:33 AM CDT) Ethyl Glucuronide Scrn w/Reflex, U Negative Cutoff: 500 ng/mL 07/13/2024 1:38 PM CDT [facility] Comment: ----ADDITIONAL INFORMATION---- This test was developed and its performance characteristics determined by [facility] in a manner consistent with CLIA requirements. This test has not been cleared or approved by the U.S. Food and Drug Administration. Urine 07/13/2024 6:33 AM CDT 07/13/2024 9:56 AM CDT us Sheree Franz M.D. LAB URINE ORDERABLES Fi nal Result [facility] [address] [place] [address] [facility] [address] [place] [address] [place] [address] * Drug Abuse Survey with Confirmation, Panel 9, Urine (07/13/2024 6:33 AM CDT) Alcohol Negative Cutoff: 10 mg/dL 07/13/2024 1:46 PM CDT [facility] Amphetamines Negative Cutoff: 500 ng/mL 07/13/2024 1:46 PM CDT [facility] Barbiturates Negative Cutoff: 200 ng/mL 07/13/2024 1:46 PM CDT [facility] Benzodiazepines Negative Cutoff: 100 ng/mL 07/13/2024 1:46 PM CDT [facility] Cocaine Negative Cutoff: 150 ng/mL 07/13/2024 1:46 PM CDT [facility] Comment: This cocaine immunoassay targets benzoylecgonine the primary metabolite of cocaine. Methadone Metabolite Negative Cutoff: 300 ng/mL 07/13/2024 1:46 PM CDT [facility] Opiates Negative Cutoff: 300 ng/mL 07/13/2024 1:46 PM CDT [facility] Phencyclidine Negative Cutoff: 25 ng/mL 07/13/2024 1:46 PM CDT [facility] Tetrahydrocannabinol Negative Cutoff: 50 ng/mL 07/13/2024 1:46 PM CDT [facility] Comment: This immunoassay targets delta-9 tetrahydrocannabinol carboxylic acid (THC-COOH), a metabolite of delta-9 tetrahydrocannabinol the main psychoactive ingredient of marijuana. ----ADDITIONAL INFORMATION---- This report is intended for use in clinical monitoring or management of patients. It is not intended for use in employment-related testing. This test has been modified from the bakery clerk's instructions. Its performance characteristics were determined by [facility] in a manner consistent with CLIA requirements. This test has not been cleared or approved by the U.S. Food and Drug Administration. Urine 07/13/2024 6:33 AM CDT 07/13/2024 9:57 AM CDT us Sheree Franz M.D. LAB URINE ORDERABLES Fi nal Result Performing Organization Address [facility] Co de Phone Number [facility] [address] [place] [address] [facility] [address] [place] [address] [place] [address] * (ABNORMAL) Protein/Creatinine Ratio, Random, Urine (07/13/2024 6:33 AM CDT) Protein, Total, Random, U 42 mg/dL 07/13/2024 8:45 AM CDT [facility] Creatinine, Random, U 153 16 - 326 mg/dL 07/13/2024 8:45 AM CDT [facility] Protein/Creati nine Ratio 0.27(H) <0.18 mg/mg 07/13/2024 8:45 AM CDT [facility] Urine 07/13/2024 6:33 AM CDT 07/13/2024 7:35 AM CDT us Sheree Franz M.D. LAB URINE ORDERABLES Fi nal Result Performing Organization Address [facility]/ZIP Co de Phone Number [facility] [address] [place] [address], [place] DTL [facility] [address] [place] [address] * (ABNORMAL) Urinalysis, with Microscopic: (07/13/2024 6:33 AM CDT) Source Urine, Urine, Midstream 07/13/2024 7:36 AM CDT [facility] Color, U Yellow 07/13/2024 7:36 AM CDT [facility] Clarity, U Clear 07/13/2024 7:36 AM CDT [facility] Protein, U 42(H) <26 mg/dL 07/13/2024 8:45 AM CDT [facility] Protein/Osmol ality 1.55(H) <0.42 ratio 07/13/2024 8:45 AM CDT [facility] Predicted 24 HR Protein, U 996(H) <229 mg/24 h 07/13/2024 8:45 AM CDT [facility] Predicted Range 246-4032 mg/24 h 07/13/2024 8:45 AM CDT [facility] Comment Micro done on <5 mL 07/13/2024 9:28 AM CDT [facility] Urine 07/13/2024 6:33 AM CDT 07/13/2024 7:35 AM CDT us Sheree Franz M.D. LAB URINE ORDERABLES Fi nal Result [facility] [address] [place] [address], [facility] [address] [place] [address] * HCV Ab Scrn w/Reflex to HCV PCR, Serum (03/09/2024 7:03 AM SERVICE STATION OPERATOR) HCV Ab Screen, S Negative Negative 03/09/2024 10:01 AM SERVICE STATION OPERATOR [facility] Comment: Consumption of high-dose biotin supplement within 12 hours of blood collection for this test can cause false-negative results. Blood (Blood, Venous) 03/09/2024 7:03 AM SERVICE STATION OPERATOR 03/09/2024 9:02 AM SERVICE STATION OPERATOR us Sheree Franz M.D. LAB MICROBIOLOGY - BLOO D ORDERABLES Final Result [facility] [address] [place] [address] [facility] [address] [place] [address] * (ABNORMAL) Lipid Panel (03/09/2024 7:02 AM SERVICE STATION OPERATOR) Triglycerides 236(H) mg/dL 03/09/2024 8:05 AM SERVICE STATION OPERATOR [facility] Comment: ----REFERENCE VALUE---- Normal: <150 mg/dL Borderline High: 150-199 mg/dL High: 200-499 mg/dL Very High: > or =500 mg/dL Cholesterol, Total 193 mg/dL 2024 8:05 AM SERVICE STATION OPERATOR [facility] Comment: ----REFERENCE VALUE---- Desirable: < 200 mg/dL Borderline High: 200 - 239 mg/dL High: > or = 240 mg/dL Cholesterol, LDL, Calculated 106 mg/dL 03/09/2024 8:05 AM SERVICE STATION OPERATOR DTL Comment: ----REFERENCE VALUE---- Desirable: <100 mg/dL Above Desirable: 100-129 mg/dL Borderline High: 130-159 mg/dL High: 160-189 mg/dL Very High: >=190 mg/dL ----ADDITIONAL INFORMATION---- LDL cholesterol calculated using the Gil/NIH equation. Cholesterol, HDL, S 46(L) >=50 mg/dL 03/09/2024 8:05 AM SERVICE STATION OPERATOR DTL Cholesterol, Non-HDL, Calculated 147 mg/dL 03/09/2024 8:05 AM SERVICE STATION OPERATOR DTL Comment: ----REFERENCE VALUE---- Desirable: <130 mg/dL Above Desirable: 130-159 mg/dL Borderline High: 160-189 mg/dL High: 190-219 mg/dL Very High: > or =220 mg/dL Fasting (8 HR or more) Yes 03/09/2024 7:03 AM SERVICE STATION OPERATOR DTL Blood (Blood, Venous) 03/09/2024 7:02 AM SERVICE STATION OPERATOR 03/09/2024 7:32 AM SERVICE STATION OPERATOR Sheree Franz M.D. LAB BLOOD ADD-ON Final Result Performing Organization Address City/[facility]/ZIP Co de Phone Number [facility] [address] [place] [address], [facility] [address] [place] [address] * Hemoglobin A1c (03/09/2024 7:02 AM SERVICE STATION OPERATOR) Hemoglobin A1c, B 4.9 4.0 - 5.6 % 03/09/2024 7:29 AM SERVICE STATION OPERATOR DTL Blood (Blood, Venous) 03/09/2024 7:02 AM SERVICE STATION OPERATOR 03/09/2024 7:14 AM SERVICE STATION OPERATOR Sheree Franz M.D. LAB BLOOD ADD-ON Final Result Performing Organization Address City/[facility] Co de Phone Number [facility] [address] [place] [address], [facility] [address] [place] [address] from Last 3 Months or Most Recently Relevant to Health Maintenance Insurance [facility] Advance Directives For more information, please contact: [phone] * Full Code (Latest Code Status on [...] Due to: Not medically appropriate Care Teams Bowling Alley Operator Relationship Specialty Start Date End Date Elsewhere, Pcp PCP - General Internal Medicine 03/09/24
--- OUTSIDE RECORDS SUMMARY | 2024-09-25 15:04 | XMS_ITS | Encounter Summary ---
Author Organization [facility] Address [address] [place] [id number] Care Team Providers Care Pipe Coverer Helper Name Role Phone Elsewhere, Pcp Primary Care Provider Unavailabl e Reason for Visit * Reason Comments Med Refill Encounter Details Date Type Department Care Team (Late st Contact Info) Description 07/21/2024 Refill Division of Nephrology and Hypertension in [place], [place] [address] [place] [address] Jo Root M.D., Ph.D. [address] [place] [phone] Med Refill Social History Tobacco Use Types Packs/Day Years Used Date Smoking Tobacco: Never Smokeless Tobacco: Never Alcohol Use Standard Drinks/Week Comments Never 0 (1 standard drink = 0.6 oz pur e alcohol) [facility] Utilities Answer Date Recorded In the past 12 months has [employer], gas, oil, or water [employer] threatened to shut off services in your [...] your living situation today? I have a [facility] place to live 11/07/2023 Comments No Sex and Gender Information Value Date Recorded Sex Assigned at Female 03/13/2023 1:38 PM ENTRY LEVEL PROJECT COORDINATOR Legal Sex Female 10:08 PM ENTRY LEVEL PROJECT COORDINATOR Gender Identity Female 03/13/2023 1:42 PM ENTRY LEVEL PROJECT COORDINATOR Sexual Orientation Straight 03/13/2023 1: 42 PM ENTRY LEVEL PROJECT COORDINATOR documented as of this encounter Miscellaneous Notes * Telephone Encounter - Shonda Lepe M.S.N., R.N. - 07/23/2024 3:29 PM CDT Reordered on 07/23/2024 by Nicholas Tracey APRN, C.N.P., M.S.N.. documented in this encounter Plan of Treatment Upcoming Encounters Date Type Department Care Team (Latest Contact Info) Description 10/06/2024 12:30 PM CDT Telemedicine Department of Cardiovascular Medicine in [place], [place] [address] [place] [address] Cheryl Bruce M.D., M.S. [address] [place] [address] 10/07/2024 4:52 PM CDT Hospital Encounter Division of Cardiovascular Diseases in [address] [phone] Abnormal Stress Test 10/07/2024 4:52 PM CDT - 10/07/2024 6:07 PM CDT Surgery Division of Cardiovascular Diseases in [address] [phone] Paying TellerFred M.D. CORONARY ANGIOGRAPHY WITH POSSIBLE INTERVENTION documented as of this encounter Visit Diagnoses Not on filedocumented in this encounter Care Teams Pipe Coverer Helper Relationship Specialty Start Date End Date Elsewhere, Pcp PCP - General Internal Medicine 03/09/24 documented as of this encounter
--- OUTSIDE RECORDS SUMMARY | 2024-09-25 15:04 | XMS_ITS ---
Author Organization [facility] Address [address] [place] [address] Care Team Providers Care Speeder Operator Name Role Phone Elsewhere, Pcp Primary Care Provider Unavailabl e Procedures Procedure Name Priority Date/Time Associated Diagnosis [...] (HCC) EXTM INR, POCT, B Routine 08/06/2024 5:5 0 AM CDT BE/KID STORAGE, U Routine 07/13/2024 6: 40 AM CDT Chronic Kidney Disease Stage 5 GFR Less Than 15 Dialysis Dependent (HCC) Glomerulonephritis Immunoglobulin A (IgA Nephropathy) Pretransplant Recipient Evaluation Exam BE/KID POST TRANS STORAGE, B Routine 07/13/2024 6:36 AM CDT Chronic Kidney Disease Stage 5 GFR Less Than 15 Dialysis Dependent (HCC) Glomerulonephritis Immunoglobulin A (IgA Nephropathy) Pretransplant Recipient Evaluation Exam DIPSTICK, U Routine 07/13/2024 6:33 AM CDT AK OSMOLALITY ASSAY URINE Routine 07/13/2024 6:33 AM [...] HCV PCR, S Routine 03/09/2024 7:03 AM LOGISTICS TECH Chronic Kidney Disease Stage 5 GFR Less Than 15 Dialysis Dependent (HCC) Hemodialysis Status (HCC) Glomerulonephritis Immunoglobulin A (IgA Nephropathy) Hypertension Essential Primary Nodule Pulmonary HEMOGLOBIN A1C, B Routine 03/09/2024 7:0 2 AM LOGISTICS TECH Chronic Kidney Disease Stage 5 GFR Less Than 15 Dialysis Dependent (HCC) Hemodialysis Status (HCC) Glomerulonephritis Immunoglobulin A (IgA Nephropathy) Hypertension Essential Primary Nodule Pulmonary LIPID PANEL, S Routine 03/09/2024 7:02 AM LOGISTICS TECH Chronic Kidney Disease Stage 5 GFR Less Than 15 Dialysis Dependent (HCC) Hemodialysis Status (HCC) Glomerulonephritis Immunoglobulin A (IgA Nephropathy) Hypertension Essential Primary Nodule Pulmonary from Last 3 Months or Most Recently Relevant to Health Maintenance Allergies No known active allergies Medications acetaminophen [...] days. 14 capsule 09/01/2024 8:17 AM CDT 5 09/09/19 25 Active Problems Problem Noted Date Diagnosed Date [...] Renal Acute (Acute Kidney Injury) 2023 Immunizations Immunization Administration Dates Next Due DTaP [...] e alcohol) [facility] Transceptaities Answer Date Recorded In the past 12 months has e [employer], gas, oil, or water [employer] threatened to shut off services in your [...] a [facility] to live 11/07/2023 Comments No Sex and Gender Information Value Date Recorded Sex Assigned at Female 03/13/2023 1:38 PM LOGISTICS TECH Legal Sex Female 10:08 PM LOGISTICS TECH Gender Identity Female 03/13/2023 1:42 PM LOGISTICS TECH Sexual Orientation Straight 03/13/2023 1: 42 PM LOGISTICS TECH Last Filed Vital Signs Vital Sign Reading [...] Mass Index 47.77 09/21/2024 9:54 AM CDT Results * IR Dialysis / High Flow [...] an exposed cuff of the catheter. A stock turner view showed a right IJ Pristine tunneled [...] New catheter is ready foruse. NR us Carrington Perrin Jr., D.O. IMG IR PROCEDURES Fi nal Result * (ABNORMAL) EXT INR, POCT (09/22/2024 7:00 AM CDT) Only the most recent of2 resultswithin the time period is included. Pathologist [facility] EXT INR 1.28(H) 0.91 - 1.10 ML [facility] 09/22/2024 7:00 AM CDT Narrative [facility] - 09/22/2024 1:54 PM CDT External results verified in Extract by Itz Carney on 09/22/2024 at 01:53 PM. us Ordering Provider External M.D. LAB POCT ORDERAB LES-MANUAL Final Result [facility] [address] [place] [address] * ECHO STRESS 2D WITH COLOR, LIMITED DOPPLER AND CONTRAST (08/12/2024 4:32 PM CDT) Pathologist [facility] Ejection Fraction 60 MC CV EIMS Mid-Ascending [...] per Echocardiography Contrast Administration Protocol Reference Document [id number] Rev 07/02/2024. Patient met an inclusion criterion and did not have contraindications in screening sections. CO-SIGNATURE:The electronic signature of the responsible supervising echo physician in this report also provides authentication within the electronic health record for the medication(s) initiated in Epic and listed within this report. These medications [...] a heart rate of 81 BPM (ischemic [id number]%). 5. Ejection fraction response from 60% at [...] administered per Echocardiography Contrast Administration ProtocolReference Document [id number] Rev 07/02/2024. Patient met an inclusioncriterion and did not have contraindications in screening sections. CO-SIGNATURE:The electronic signature of the responsible supervising echophysician in this report also provides authentication within the[facility] health record for the medication(s) initiated in Epic andlisted within this report. These medications were administered for theperformance of this echo procedure and were given per institutionalprotocol. For the complete report, see the Order-Level Documents. us Idalia Hand M.D. CV ECHO PROCEDURES Final R esult * ECG 12 Lead (08/12/2024 2:44 PM CDT) Ventricular Rate ECG/Min 66 BPM MUSE AK Interval 142 ms MUSE QRSD Interval 96 ms MUSE QT Interval 438 ms MUSE QTC Interval 459 ms MUSE P Cody 20 degrees MUSE R Cody 17 degrees MUSE T Wave Cody 20 degrees MUSE 08/12/2024 2:44 PM CDT [...] Hand M.D. ECG ORDERABLES Final Resu lt MUSE NA * Pancreas/Kidney Storage, Urine (07/13/2024 6:40 AM CDT) Be/Kid Storage, U CANCELED 07/13/2024 7:25 AM CDT HSS Comment: REVISED RESULTS ----PREVIOUSLY REPORTED ---- Collected Flagged as: N/A (Reported 07/13/2024 06:40) Urine (Urine, Midstream) 07/13/2024 6:40 AM CDT 07/13/2024 6:40 AM CDT Narrative [facility] - 07/13/2024 7:25 AM CDT Be/Kid Storage, U was cancelled on 07/13/2024 at 07:25; Quantity was not sufficient for testing. !CNCL! Sheree Franz M.D. LAB URINE ORDERABLES Ed ited Result - Final Performing Organization Address [facility] Co de Phone Number [facility] [address] [place] [address], [facility] 200 [place] [address] * Be/Kid 5cc Storage, Blood (07/13/2024 6:36 AM CDT) Storage, Red Collected DEFAULT 07/13/2024 6:36 AM CDT HSS Storage, ACD Collected DEFAULT 07/13/2024 6:36 AM CDT HSS Blood (Blood, Venous) 07/13/2024 6:36 AM CDT 07/13/2024 6:36 AM CDT Narrative [facility] - 07/13/2024 6:36 AM CDT Specimen Information: Specimen ID: [id number] Specimen Type: Blood Specimen Collection Start Date: 07/13/2024 6:36 AM Specimen Received Date: 07/13/2024 6:36 AM Specimen ID: [id number] Specimen Collection Start Date: 07/13/2024 6:36 AM Specimen Received Date: 07/13/2024 6:36 AM us Sheree Franz M.D. LAB BLOOD ADD-ON Final Result Performing Organization Address City/[facility] Co de Phone Number [facility] [address] HSS [facility] 200 [place] [address] * Osmolality, Urine (07/13/2024 6:33 AM CDT) Pathologist [facility] Osmolality, U 271 150 - 1150 mOsm/kg 07/13/2024 8:30 AM CDT DTL Urine 07/13/2024 6:33 AM CDT 07/13/2024 7:36 AM CDT us Sheree Franz M.D. LAB URINE ORDERABLES Fi nal Result Performing Organization Address [email or web address]] de Phone Number [facility] [address] DTL [facility] 200 [place] [address] * (ABNORMAL) Dipstick, Urine (07/13/2024 6:33 AM CDT) Pathologist [facility] Hemoglobin, QL, U Trace(A) Negative 07/13/2024 8:02 [...] ORDERABLES Fi nal Result Performing Organization Address City/[facility] Co de Phone Number [facility] [address] [place], [place] [phone] [place] [address] 200 [place] [address] * pH, Random, Urine (07/13/2024 6:33 AM CDT) pH, Random, U 6.3 4.5 - 8.0 07/13/2024 8:30 AM CDT DTL Urine 07/13/2024 6:33 AM CDT 07/13/2024 7:36 AM CDT Sheree Franz M.D. LAB URINE ORDERABLES Fi nal Result Performing Organization Address City/[facility]/ZIP Co de Phone Number [facility] [address] [address] * (ABNORMAL) Microscopic Manual (07/13/2024 6:33 AM [...] ORDERABLES Fi nal Result Performing Organization Address City/[facility]/ZIP Co de Phone Number [facility] 200 [place] [address], [facility] 200 [place] [address] * Bacterial Culture, Aerobic + Susceptibility, Urine (07/13/2024 6:33 AM CDT) Urine Culture Urogenital microbiota, susceptibilities not performed per laboratory criteria. 07/14/2024 7:22 AM CDT DTL Urine, Midstream 07/13/2024 6:33 AM CDT 07/13/2024 9:35 AM CDT Sheree Franz M.D. LAB MICROBIOLOGY - GENE RAL ORDERABLES Final Result Performing Organization Address [facility] Co de Phone Number [facility] 200 [place] [address] * (ABNORMAL) Gram Stain, Urine (07/13/2024 6:33 AM CDT) Source Urine, Urine, Midstream 07/13/2024 8:31 AM CDT DT Gram Stain, U Positive(A) Negative 07/13/2024 7:53 AM CDT [facility] Comment:Many Gram-positive b acilli Urine 07/13/2024 6:33 AM CDT 07/13/2024 7:35 AM CDT us Sheree Franz M.D. LAB URINE ORDERABLES Fi nal Result Performing Organization Address [facility] Co de Phone Number [facility] [address] [place] [address] * Ethyl Glucuronide Screen with Reflex, Urine (07/13/2024 6:33 AM CDT) Ethyl Glucuronide Scrn w/Reflex, U Negative Cutoff: 500 ng/mL 07/13/2024 1:38 PM CDT [facility] Comment: ----ADDITIONAL INFORMATION---- This test was developed and its performance characteristics determined by [facility] in a manner consistent with CLIA requirements. This test has not been cleared or approved by the U.S. Food and Drug Administration. Urine 07/13/2024 6:33 AM CDT 07/13/2024 9:56 AM CDT Sheree Franz M.D. LAB URINE ORDERABLES Fi nal Result [facility] [address] [place] [address] [facility] [address] [place] [address] [place] [address] * Drug Abuse Survey with Confirmation, Panel 9, Urine (07/13/2024 6:33 AM CDT) Alcohol Negative Cutoff: 10 mg/dL 07/13/2024 1:46 PM CDT [facility] Amphetamines Negative Cutoff: 500 ng/mL 07/13/2024 1:46 PM CDT [facility] Barbiturates Negative Cutoff: 200 ng/mL 07/13/2024 1:46 PM CDT [facility] Benzodiazepines Negative Cutoff: 100 ng/mL 07/13/2024 1:46 PM CDT [facility] Cocaine Negative Cutoff: 150 ng/mL 07/13/2024 1:46 PM CDT [facility] Comment: This cocaine immunoassay targets benzoylecgonine the primary metabolite of cocaine. Methadone Metabolite Negative Cutoff: 300 ng/mL 07/13/2024 1:46 PM CDT [facility] Opiates Negative Cutoff: 300 ng/mL 07/13/2024 1:46 PM CDT [facility] Phencyclidine Negative Cutoff: 25 ng/mL 07/13/2024 1:46 PM CDT [facility] Tetrahydrocannabinol Negative Cutoff: 50 ng/mL 07/13/2024 1:[address] [facility] Comment: This immunoassay targets delta-9 tetrahydrocannabinol carboxylic acid (THC-COOH), a metabolite of delta-9 tetrahydrocannabinol the main psychoactive ingredient of marijuana. ----ADDITIONAL INFORMATION---- This report is intended for use in clinical monitoring or management of patients. It is not intended for use in employment-related testing. This test has been modified from the drosser's instructions. Its performance characteristics were determined by [facility] in a manner consistent with CLIA requirements. This test has not been cleared or approved by the U.S. Food and Drug Administration. Urine 07/13/2024 6:33 AM CDT 07/13/2024 9:57 AM CDT us Sheree Franz M.D. LAB URINE ORDERABLES Fi nal Result Performing Organization Address [facility] Co de Phone Number [facility] [address] [place] [address] [facility] [address] [place] [address] [place] [address] * (ABNORMAL) Protein/Creatinine Ratio, Random, Urine (07/13/2024 6:33 AM CDT) Protein, Total, Random, U 42 mg/dL 07/13/2024 8:45 AM CDT DTL Creatinine, Random, U 153 16 - 326 mg/dL 07/13/2024 8:45 AM CDT DTL Protein/Creati nine Ratio 0.27(H) <0.18 mg/mg 07/13/2024 8:45 AM CDT DTL Urine 07/13/2024 6:33 AM CDT 07/13/2024 7:35 AM CDT us Sheree Franz M.D. LAB URINE ORDERABLES nal Result Performing Organization Address [facility] Co de Phone Number [address] [address], [facility] 200 [place] [address] * (ABNORMAL) Urinalysis, with Microscopic: (07/13/2024 6:33 [...] 6:33 AM CDT 07/13/2024 7:35 AM CDT Sheree Franz M.D. LAB URINE ORDERABLES Fi nal Result Performing Organization Address City/[facility] Co de Phone Number [facility] [address] [place] [address], [facility] [address] [place] [address] * HCV Ab Scrn w/Reflex to HCV PCR, Serum (03/09/2024 7:03 AM LOGISTICS TECH) Pathologist [facility] HCV Ab Screen, S Negative Negative 03/09/2024 10:01 AM LOGISTICS TECH [facility] Comment: Consumption of high-dose biotin supplement within 12 hours of blood collection for this test can cause false-negative results. Blood (Blood, Venous) 03/09/2024 7:03 AM LOGISTICS TECH 03/09/2024 9:02 AM LOGISTICS TECH Sheree Franz M.D. LAB MICROBIOLOGY - BLOO D ORDERABLES Final Result [facility] [address] [place] [address] [facility] [address] [place] [address] * (ABNORMAL) Lipid Panel (03/09/2024 7:02 AM LOGISTICS TECH) Pathologist [facility] Triglycerides 236(H) mg/dL 03/09/2024 8:05 AM LOGISTICS TECH [facility] Comment: ----REFERENCE VALUE---- Normal: <150 mg/dL Borderline High: 150-199 mg/dL High: 200-499 mg/dL Very High: > or =500 mg/dL Cholesterol, Total 193 mg/dL 2024 8:05 AM LOGISTICS TECH DTL Comment: ----REFERENCE VALUE---- Desirable: < 200 mg/dL Borderline High: 200 - 239 mg/dL High: > or = 240 mg/dL Cholesterol, LDL, Calculated 106 mg/dL 03/09/2024 8:05 AM LOGISTICS TECH [facility]TL Comment: ----REFERENCE VALUE---- Desirable: <100 mg/dL Above Desirable: 100-129 mg/dL Borderline High: 130-159 mg/dL High: 160-189 mg/dL Very High: >=190 mg/dL ----ADDITIONAL INFORMATION---- LDL cholesterol calculated using the Gil/NIH equation. Cholesterol, HDL, S 46(L) >=50 mg/dL 03/09/2024 8:05 AM LOGISTICS TECH DTL Cholesterol, Non-HDL, Calculated 147 mg/dL 03/09/2024 8:05 AM LOGISTICS TECH DTL Comment: ----REFERENCE VALUE---- Desirable: <130 mg/dL Above Desirable: 130-159 mg/dL Borderline High: 160-189 mg/dL High: 190-219 mg/dL Very High: > or =220 mg/dL Fasting (8 HR or more) Yes 03/09/2024 7:03 AM LOGISTICS TECH DTL Blood (Blood, Venous) 03/09/2024 7:02 AM LOGISTICS TECH 03/09/2024 7:32 AM LOGISTICS TECH Sheree Franz M.D. LAB BLOOD ADD-ON Final Result [facility] [address] [place] [address], [facility] [address] [place] [address] * Hemoglobin A1c (03/09/2024 7:02 AM LOGISTICS TECH) Hemoglobin A1c, B 4.9 4.0 - 5.6 % 03/09/2024 7:29 AM LOGISTICS TECH DTL Blood (Blood, Venous) 03/09/2024 7:02 AM LOGISTICS TECH 03/09/2024 7:14 AM LOGISTICS TECH us Sheree Franz M.D. LAB BLOOD ADD-ON Final Result [facility] [address] [place] [address], [place] DTL [facility] [address] [place] [address] from Last 3 Months or Most Recently Relevant to Health Maintenance
--- OUTSIDE RECORDS SUMMARY | 2024-09-25 15:04 | XMS_ITS | Encounter Summary ---
Author Organization [facility] Address [address] [place] [address] Care Team Providers Care C2 Tactical Analysis Technician Name Role Phone Elsewhere, Pcp Primary Care Provider Unavailabl e Reason for Visit * Reason Onset Date Comments Scheduling 07/14/2024 Pt is sick and n eeds to reschedule 07/[address] benedict Encounter Details Date Type Department Care Team (Latest Contact Info) Description 07/14/2024 Clinical Communication Freddy Berlin [facility] in [place], [place] [address] [place] [address] Shahid Benedict M.D. [address] [place] [address] Scheduling (Pt is sick and needs to reschedule 07/[address] benedict) Social History Tobacco Use Types Packs/Day Years Used Date Smoking Tobacco: Never Smokeless Tobacco: Never Alcohol Use Standard Drinks/Week Comments Never 0 (1 standard drink = 0.6 oz pur e alcohol) [facility] Utilities Answer Date Recorded In [...] your living situation today? I have a [facility] place to live 11/07/2023 Comments No Sex and Gender Information Value Date Recorded Sex Assigned at Female 03/13/2023 1:38 PM CALIBRATION TESTER Legal Sex Female 10:08 PM CALIBRATION TESTER Gender Identity Female 03/13/2023 1:42 PM CALIBRATION TESTER Sexual Orientation Straight 03/13/2023 1: 42 PM CALIBRATION TESTER documented as of this encounter Plan of Treatment Upcoming Encounters Date Type Department Care Team (Latest Contact Info) Description 10/06/2024 12:30 PM CDT Telemedicine Department of Cardiovascular Medicine in [place], [place] [address] [place] [address] Cheryl Bruce M.D., M.S. 200 [place] [address] 10/07/2024 4:52 PM CDT Hospital Encounter Division of Cardiovascular Diseases in [place], [place] [address] [place] [address] Abnormal Stress Test 10/07/2024 4:52 PM CDT - 10/07/2024 6:07 PM CDT Surgery Division of Cardiovascular Diseases in [address] [phone] Home Help Aide, Edelmira Ibarra CORONARY ANGIOGRAPHY WITH POSSIBLE INTERVENTION documented as of this encounter Visit Diagnoses Not on filedocumented in this encounter Care Teams C2 Tactical Analysis Technician Relationship Specialty Start Date End Date Elsewhere, Pcp PCP - General Internal Medicine 03/09/24 documented as of this encounter
--- OUTSIDE RECORDS SUMMARY | 2024-09-25 15:05 | XMS_ITS | Encounter Summary ---
Author Organization [facility] Address [address] [place] [address] Care Team Providers Care National Account Representative Name Role Phone Elsewhere, Pcp Primary Care Provider Unavailabl e Encounter Details Date Type Department Care Team (Late st Contact Info) Description 09/01/2024 Documentation Division of Nephrology and Hypertension in [place], [place] [address] [place] [address] Carrington Perrin Jr., D.O. [address] [place] [phone] Social History Tobacco Use Types Packs/Day Years Used Date Smoking Tobacco: Never Smokeless Tobacco: Never Alcohol Use Standard Drinks/Week Comments Never 0 (1 standard drink = 0.6 oz pur e alcohol) [facility] Utilities Answer Date Recorded In the past 12 months has [employer], gas, oil, or water [employer] threatened to shut off services in your [...] your living situation today? I have a [facility] place to live 11/07/2023 Comments No Sex and Gender Information Value Date Recorded Sex Assigned at Female 03/13/2023 1:38 PM FOUNDRY WORKER APPRENTICE Legal Sex Female 10:08 PM FOUNDRY WORKER APPRENTICE Gender Identity Female 03/13/2023 1:42 PM FOUNDRY WORKER APPRENTICE Sexual Orientation Straight 03/13/2023 1: 42 PM FOUNDRY WORKER APPRENTICE documented as of this encounter Progress Notes * Carrington Perrin Jr., D.O. - 09/01/2024 7:15 AM CDT Care coordination: Notification today from [facility], her CVC exit site is red with yellow drainage--cultures done Keflex RX 500 mg BID X 7 d. documented in this encounter Plan of Treatment Upcoming Encounters Date Type Department Care Team (Latest Contact Info) Description 10/06/2024 12:30 PM CDT Telemedicine Department of Cardiovascular Medicine in [place], [place] [address] [place] [address] Cheryl Bruce M.D., M.S. [address] [place] [address] 10/07/2024 4:52 PM CDT Hospital Encounter Division of Cardiovascular Diseases in [address] [phone] Abnormal Stress Test 10/07/2024 4:52 PM CDT - 10/07/2024 6:07 PM CDT Surgery Division of Cardiovascular Diseases in [address] [phone] Rotary Derrick OperatorFred M.D. CORONARY ANGIOGRAPHY WITH POSSIBLE INTERVENTION documented as of this encounter Visit Diagnoses Not on filedocumented in this encounter Care Teams National Account Representative Relationship Specialty Start Date End Date Elsewhere, Pcp PCP - General Internal Medicine 03/09/24 documented as of this encounter
--- OUTSIDE RECORDS SUMMARY | 2024-09-25 15:05 | XMS_ITS | Encounter Summary ---
Author Organization 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 200 [place] [address] Phone: tel: fax: [facility] Referral ID Status Reason Start Date Expiration Date Visits Re quested Visits Authorized [id number] Closed 09/22/2024 12/23/2025 1 1 Encounter Details Date Type Department Care Team (Late st Contact Info) Description 09/22/2024 Orders Only Division of Nephrology and Hypertension in [place], [place] [address] [place] [phone] Carrington Perrin Jr., D.O. [address] [place] [address] [phone] Chronic Failure Renal End Stage Renal Disease Dialysis Dependent (HCC) (Primary Dx); Complication Dialysis Catheter Subsequent Social History Tobacco Use Types Packs/Day Years Used Date Smoking Tobacco: Never Smokeless Tobacco: Never Alcohol Use Standard Drinks/Week Comments Never 0 (1 standard drink = 0.6 oz pur e alcohol) [facility] Utilities Answer Date Recorded In [...] Sex Assigned at Female 03/13/2023 1:38 PM MANAGER MARKET INTELLIGENCE Legal Sex Female 10:08 PM MANAGER MARKET INTELLIGENCE Gender Identity Female 03/13/2023 1:42 PM MANAGER MARKET INTELLIGENCE Sexual Orientation Straight 03/13/2023 1: 42 PM MANAGER MARKET INTELLIGENCE documented as of this encounter Plan of Treatment Upcoming Encounters Date Type Department Care Team (Latest Contact Info) Description 10/06/2024 12:30 PM CDT Telemedicine Department of Cardiovascular Medicine in [place], [place] [address] [place] [address] Cheryl Bruce M.D., M.S. [address] [place] [phone] 10/07/2024 4:52 PM CDT Hospital Encounter Division of Cardiovascular Diseases in [place], [place] [address] [place] [phone] Abnormal Stress Test 10/07/2024 4:52 PM CDT - 10/07/2024 6:07 PM CDT Surgery Division of Cardiovascular Diseases in [place], [place] [address] [place] [phone] Pants Presser Automatic, Edelmira Ibarra CORONARY ANGIOGRAPHY WITH POSSIBLE INTERVENTION Scheduled Orders Name Type Priority Associated Diagnoses Orde r Schedule Prothrombin Time (PT) Lab Routine Chronic Failure Renal End Stage Renal Disease Dialysis Dependent (HCC) Complication Dialysis Catheter Subsequent Expected: 09/23/2024, Expires: 12/23/2025 documented as of this encounter Results * [...] an exposed cuff of the catheter. A computer aided design designer view showed a right IJ Pristine tunneled [...] D.O. IMG IR PROCEDURES Fi nal Result documented in this encounter Visit Diagnoses Diagnosis Abnormal Stress Test- Primary Chronic Failure Renal End Stage Renal Disease Dialysis Dependent (HCC)- Primary Complication Dialysis Catheter Subsequent Chronic Failure Renal End Stage Renal Disease Dialysis Dependent (HCC) Complication Dialysis Catheter Subsequent Abnormal Stress Test documented in this encounter Care Teams Dobby Looms Pegger Relationship Specialty Start Date End Date Elsewhere, Pcp PCP - General Internal Medicine 03/09/24 documented as of this encounter
--- OUTSIDE RECORDS SUMMARY | 2024-09-25 15:05 | XMS_ITS ---
Author Organization [facility] Address [address] [place] [address] Care Team Providers Care Senior Geotechnical Engineer Name Role Phone Elsewhere, Pcp Primary Care Provider Unavailabl e Transplant Episode Kidney Candidate [facility] ([place], [place]) - [facility] Evaluation began on 03/09/2024 Marked as Deferred on 09/01/2024 Kidney CoordinatorNataliia Jackson R.N. Fax: N/A Email: [email or web address] [email or web address] Score Value Updated Exceptions/Reas ons CPRA Not available EPTS (Calc) 19 09/25/2024 Care Team Name Role Phone Fax Email Nataliia Jackson R.N. Kidney Coordinator [phone] N/A [email or web address] Idalia Hand M.D. Transplant Clinical Neuropsychologist [phone] Hollie [email or web address] Jo Berg M.D., Ph.D. Referring Provider [phone] [email or web address] [email or web address] Shahid Edge M.D. Transplant Surgeon [phone] [email or web address] Events Pre-Transplant Referred: 09/10/2023 Evaluation began: 03/09/2024 Committee: 09/01/2024 Appointments (08/25/2024 - 10/26/2024) When With Visit Type Description 09/21/2024 TXP - Charlie Bruce Consultation Abnormal Str ess Test (Primary Dx) 10/06/2024 CVD Educational Visi t Dialysis History Dialysis History Start End Type Comments Center 07/14/2024 07/14/2024 In-center Hemodialysis T MAYRA ROBERTO 04/18/2023 In-center Hemodialysis MWSivakumar [facility] Information Center Phone Fax Address [facility] [phone] [place] [phone] [facility] [phone] [place] [phone]
--- OUTSIDE RECORDS SUMMARY | 2024-09-25 15:05 | XMS_ITS | Encounter Summary ---
Author Organization [facility] Address [address] [place] [address] Care Team Providers Care Flag Football Coach Name Role Phone Elsewhere, Pcp Primary Care Provider Unavailabl e Reason for Referral * Transplant (Routine) - Closed Specialty Diagnoses / Procedures Referred By Crow t Referred To Contact Transplant Diagnoses Abnormal Laboratory Results Morbid Obesity Body Mass Index 45.0-49.9 Adult (HCC) Chronic Kidney Disease Stage 5 GFR Less Than 15 Dialysis Dependent (HCC) Preoperative Exam Idalia Hand M.D. [address] [place] [phone] Phone: tel: fax: [facility] Referral ID Status Reason Start Date Expiration Date Visits Re quested Visits Authorized [id number] Closed 08/16/2024 02/15/2026 1 1 Scheduling Instructions LUANA Positive stress echo Encounter Details Date Type Department Care Team (Late st Contact Info) Description 08/16/2024 Orders Only [facility] [place], [place] [address] [place] [address] [phone] Linnette Marti R.N., C.C.T.C. [address] [place] [phone] Abnormal Laboratory Results (Primary Dx); Morbid Obesity Body Mass Index 45.0-49.9 Adult (HCC); Chronic Kidney Disease Stage 5 GFR Less Than 15 Dialysis Dependent (HCC); Preoperative Exam Social History Tobacco Use Types Packs/Day Years Used Date Smoking Tobacco: Never Smokeless Tobacco: Never Alcohol Use Standard Drinks/Week Comments Never 0 (1 standard drink = 0.6 oz pur e alcohol) [facility] Utilities Answer Date Recorded In the past 12 months has e [employer], gas, oil, or water [employer] threatened to shut off services in your [...] your living situation today? [facility] 11/07/2023 Comments No Sex and Gender Information Value Date Recorded Sex Assigned at Female 03/13/2023 1:38 PM FOOD SANITARIAN Legal Sex Female 10:08 PM FOOD SANITARIAN Gender Identity Female 03/13/2023 1:42 PM FOOD SANITARIAN Sexual Orientation Straight 03/13/2023 1: 42 PM FOOD SANITARIAN documented as of this encounter Plan of Treatment Upcoming Encounters Date Type Department Care Team (Latest Contact Info) Description 10/06/2024 12:30 PM CDT Telemedicine Department of Cardiovascular Medicine in [place], [place] [address] [place] [address] Cheryl Bruce M.D., M.S. [address] [place] [phone] 10/07/2024 4:52 PM CDT Hospital Encounter Division of Cardiovascular Diseases in [place], [place] [address] [place] [phone] Abnormal Stress Test 10/07/2024 4:52 PM CDT - 10/07/2024 6:07 PM CDT Surgery Division of Cardiovascular Diseases in [address] [phone] Electrical InspectorFred M.D. CORONARY ANGIOGRAPHY WITH POSSIBLE INTERVENTION Scheduled Referrals Name Type Priority Associated Diagnoses Order Schedule Transplant - Heart consult (clinic) Outpatient Referral Routine Abnormal Laboratory Results Morbid Obesity Body Mass Index 45.0-49.9 Adult (HCC) Chronic Kidney Disease Stage 5 GFR Less Than 15 Dialysis Dependent (HCC) Preoperative Exam Expected: 08/16/2024, Expires: 11/16/2025 documented as of this encounter Visit Diagnoses Diagnosis Abnormal Laboratory Results- Primary Morbid Obesity Body Mass Index 45.0-49.9 Adult (HCC) Chronic Kidney Disease Stage 5 GFR Less Than 15 Dialysis Dependent (HCC) Preoperative Exam Abnormal Stress Test- Primary Abnormal Stress Test documented in this encounter Care Teams Flag Football Coach Relationship Specialty Start Date End Date Elsewhere, Pcp PCP - General Internal Medicine 03/09/24 documented as of this encounter
--- OUTSIDE RECORDS SUMMARY | 2024-09-25 15:05 | XMS_ITS | Encounter Summary ---
Author Organization [facility] Address [address] [place] [address] Care Team Providers Care Knotting Machine Operator Name Role Phone Elsewhere, Pcp Primary Care Provider Unavailabl e Encounter Details Date Type Department Care Team (Late st Contact Info) Description 08/25/2024 Orders Only Division of Nephrology and Hypertension in [place], [place] [address] [place] [phone] Nicholas Tracey P, MAGY, C.N.P., M.S.N. [address] [place] [phone] Social History Tobacco Use Types Packs/Day Years Used Date Smoking Tobacco: Never Smokeless Tobacco: Never Alcohol Use Standard Drinks/Week Comments Never 0 (1 standard drink = 0.6 oz pur e alcohol) [facility] Utilities Answer Date Recorded In the past 12 months has e [employer], gas, oil, or water [employer] threatened to shut off services in [...] your living situation today? I have a [facility] place to live 11/07/2023 Comments No Sex and Gender Information Value Date Recorded Sex Assigned at Female 03/13/2023 1:38 PM DYNAMO TENDER Legal Sex Female 10:08 PM DYNAMO TENDER Gender Identity Female 03/13/2023 1:42 PM DYNAMO TENDER Sexual Orientation Straight 03/13/2023 1: 42 PM DYNAMO TENDER documented as of this encounter Plan of Treatment Upcoming Encounters Date Type Department Care Team (Latest Contact Info) Description 10/06/2024 12:30 PM CDT Telemedicine Department of Cardiovascular Medicine in [place], [place] [address] [place] [address] Cheryl Bruce M.D., M.S. [address] [place] [address] 10/07/2024 4:52 PM CDT Hospital Encounter Division of Cardiovascular Diseases in [place], [place] [address] [place] [phone] Abnormal Stress Test 10/07/2024 4:52 PM CDT - 10/07/2024 6:07 PM CDT Surgery Division of Cardiovascular Diseases in [place], [place] [address] [place] [address] [phone] Crown And Bridge TechnicianFred M.D. CORONARY ANGIOGRAPHY WITH POSSIBLE INTERVENTION documented as of this encounter Visit Diagnoses Not on filedocumented in this encounter Care Teams Knotting Machine Operator Relationship Specialty Start Date End Date Elsewhere, Pcp PCP - General Internal Medicine 03/09/24 documented as of this encounter
--- OUTSIDE RECORDS SUMMARY | 2024-09-25 15:05 | XMS_ITS | Encounter Summary ---
Author Organization [facility] Address [address] [place] [address] Care Team Providers Care Ground Crew Linesman Name Role Phone Elsewhere, Pcp Primary Care Provider Unavailabl e Encounter Details Date Type Department Care Team (Late st Contact Info) Description 09/22/2024 Documentation Division of Nephrology and Hypertension in [place], [place] [address] [place] [address] Carrington Perrin Jr., D.O. [address] [place] [phone] Social History Tobacco Use Types Packs/Day Years Used Date Smoking Tobacco: Never Smokeless Tobacco: Never Alcohol Use Standard Drinks/Week Comments Never 0 (1 standard drink = 0.6 oz pur e alcohol) [facility] Utilities Answer Date Recorded In the past 12 months has [employer], gas, oil, or water [employer] threatened to shut off services in your [...] Sex Assigned at Female 03/13/2023 1:38 PM OPHTHALMIC SURGEON Legal Sex Female 10:08 PM OPHTHALMIC SURGEON Gender Identity Female 03/13/2023 1:42 PM OPHTHALMIC SURGEON Sexual Orientation Straight 03/13/2023 1: 42 PM OPHTHALMIC SURGEON documented as of this encounter Progress Notes * Carrington Perrin Jr., D.O. - 09/22/2024 5:55 AM CDT Phone note: 5:30 a.m. Received notification from the dialysis unit that the cuff of her dialysis catheter is visible. Thesuture is intact. The patient was unaware. There is a minimal amount of drainage around the exit site. We will culture the drainage, we will run the patient today and I will arrange for dialysis catheter exchange. She has been on warfarin due to frequent catheter clotting, we will send out a stat INR today, which will be done locally at the [facility]. I will also request a line exchange take place tomorrow with a pre scheduled INR before the procedure as well. documented in this encounter Plan of Treatment Upcoming Encounters Date Type Department Care Team (Latest Contact Info) Description 10/06/2024 12:30 PM CDT Telemedicine Department of Cardiovascular Medicine in [place], [place] [address] [place] [address] Cheryl Bruce M.D., M.S. [address] [place] [phone] 10/07/2024 4:52 PM CDT Hospital Encounter Division of Cardiovascular Diseases in [place], [place] [address] [place] [address] [phone] Abnormal Stress Test 10/07/2024 4:52 PM CDT - 10/07/2024 6:07 PM CDT Surgery Division of Cardiovascular Diseases in [address] [phone] Patient Office RepFred M.D. CORONARY ANGIOGRAPHY WITH POSSIBLE INTERVENTION documented as of this encounter Visit Diagnoses Not on filedocumented in this encounter Care Teams Ground Crew Linesman Relationship Specialty Start Date End Date Elsewhere, Pcp PCP - General Internal Medicine 03/09/24 documented as of this encounter
--- OUTSIDE RECORDS SUMMARY | 2024-09-25 15:05 | XMS_ITS | Encounter Summary ---
Author Organization [facility] Address [address] [place] [address] Care Team Providers Care Site Monitor Name Role Phone Elsewhere, Pcp Primary Care Provider Unavailabl e Encounter Details Date Type Department Care Team (Late st Contact Info) Description 09/22/2024 Clinical Communication Division of Nephrology and Hypertension in [place], [place] [address] [place] [address] Marlyn Kelley, RJanieN. [address] [place] [phone] Social History Tobacco Use Types Packs/Day Years Used Date Smoking Tobacco: Never Smokeless Tobacco: Never Alcohol Use Standard Drinks/Week Comments Never 0 (1 standard drink = 0.6 oz pur e alcohol) [facility] Utilities Answer Date Recorded In the past 12 months has [facility] [employer], gas, oil, or water [employer] threatened to shut off services in your [...] your living situation today? I have a [facility] to live 11/07/2023 Comments No Sex and Gender Information Value Date Recorded Sex Assigned at Female 03/13/2023 1:38 PM CONTACT CENTER PROFESSIONAL Legal Sex Female 10:08 PM CONTACT CENTER PROFESSIONAL Gender Identity Female 03/13/2023 1:42 PM CONTACT CENTER PROFESSIONAL Sexual Orientation Straight 03/13/2023 1: 42 PM CONTACT CENTER PROFESSIONAL documented as of this encounter Miscellaneous Notes * Telephone Encounter - Marlyn Kelley R.N. - 09/22/2024 3:00 PM CDT MARITA Miguel, reports that patient's INR is 1.28 therefore does not need to hold her Warfarin in preparation for tomorrow's catheter exchange procedure. Pt has been notified that she does not need to hold her Warfarin and repeated correct instructions back to singer songwriter. documented in this encounter Plan of Treatment Upcoming Encounters Date Type Department Care Team (Latest Contact Info) Description 10/06/2024 12:30 PM CDT Telemedicine Department of Cardiovascular Medicine in [place], [place] [address] [place] [phone] Cheryl Bruce M.D., M.S. [address] [place] [phone] 10/07/2024 4:52 PM CDT Hospital Encounter Division of Cardiovascular Diseases in [place] [phone] [place] [phone] Abnormal Stress Test 10/07/2024 4:52 PM CDT - 10/07/2024 6:07 PM CDT Surgery Division of Cardiovascular Diseases in [address] [phone] Oral PathologistFred M.D. CORONARY ANGIOGRAPHY WITH POSSIBLE INTERVENTION documented as of this encounter Visit Diagnoses Not on filedocumented in this encounter Care Teams Site Monitor Relationship Specialty Start Date End Date Elsewhere, Pcp PCP - General Internal Medicine 03/09/24 documented as of this encounter
--- OUTSIDE RECORDS SUMMARY | 2024-09-25 15:05 | XMS_ITS | Encounter Summary ---
Author Organization [facility] Address [address] [place] [address] Care Team Providers Care Aviation Electrical Technician Name Role Phone Elsewhere, Pcp Primary Care Provider Unavailabl e Encounter Details Date Type Department Care Team (Latest Contact Info) Description 09/01/2024 Clinical Communication [facility] for Transplantation and Clinical Regeneration in [place], [place] [address] [place] [phone] Linnette Marti R.N., C.C.T.C. [address] [place] [phone] Social History Tobacco Use Types Packs/Day Years Used Date Smoking Tobacco: Never Smokeless Tobacco: Never Alcohol Use Standard Drinks/Week Comments Never 0 (1 standard drink = 0.6 oz pur e alcohol) [facility] Utilities Answer Date Recorded In the past 12 months has e [employer], gas, oil, or water [employer] threatened to shut off services in your [...] Sex Assigned at Female 03/13/2023 1:38 PM EXPORT SALES MANAGER Legal Sex Female 10:08 PM EXPORT SALES MANAGER Gender Identity Female 03/13/2023 1:42 PM EXPORT SALES MANAGER Sexual Orientation Straight 03/13/2023 1: 42 PM EXPORT SALES MANAGER documented as of this encounter Plan of Treatment Upcoming Encounters Date Type Department Care Team (Latest Contact Info) Description 10/06/2024 12:30 PM CDT Telemedicine Department of Cardiovascular Medicine in [place], [place] [address] [place] [phone] Cheryl Bruce M.D., M.S. [address] [place] [address] 10/07/2024 4:52 PM CDT Hospital Encounter Division of Cardiovascular Diseases in [address] [phone] Abnormal Stress Test 10/07/2024 4:52 PM CDT - 10/07/2024 6:07 PM CDT Surgery Division of Cardiovascular Diseases in [address] [phone] Boarding House CookFred M.D. CORONARY ANGIOGRAPHY WITH POSSIBLE INTERVENTION documented as of this encounter Visit Diagnoses Not on filedocumented in this encounter Care Teams Aviation Electrical Technician Relationship Specialty Start Date End Date Elsewhere, Pcp PCP - General Internal Medicine 03/09/24 documented as of this encounter
--- OUTSIDE RECORDS SUMMARY | 2024-09-25 15:05 | XMS_ITS | Encounter Summary ---
Author Organization [facility] Address [address] [place] [address] Care Team Providers Care Head Cager Name Role Phone Elsewhere, Pcp Primary Care Provider Unavailabl e Encounter Details Date Type Department Care Team (Late st Contact Info) Description 09/22/2024 Orders Only Division of Nephrology and Hypertension in [place], [place] [address] [place] [address] External, Ordering Provider, Edelmira Social History Tobacco Use Types Packs/Day Years Used Date Smoking Tobacco: Never Smokeless Tobacco: Never Alcohol Use Standard Drinks/Week Comments Never 0 (1 standard drink = 0.6 oz pur e alcohol) [facility] Utilities Answer Date Recorded In the past 12 months has e [employer], gas, oil, or water [employer] threatened to shut off services in your [...] your living situation today? I have a [facility] place to live 11/07/2023 Comments No Sex and Gender Information Value Date Recorded Sex Assigned at Female 03/13/2023 1:38 PM DOPING SUPERVISOR Legal Sex Female 10:08 PM DOPING SUPERVISOR Gender Identity Female 03/13/2023 1:42 PM DOPING SUPERVISOR Sexual Orientation Straight 03/13/2023 1: 42 PM DOPING SUPERVISOR documented as of this encounter Plan of Treatment Upcoming Encounters Date Type Department Care Team (Latest Contact Info) Description 10/06/2024 12:30 PM CDT Telemedicine Department of Cardiovascular Medicine in [place], [place] [address] [place] [phone] Cheryl Bruce M.D., M.S. [address] [place] [phone] 10/07/2024 4:52 PM CDT Hospital Encounter Division of Cardiovascular Diseases in [place], [place] [address] [place] [phone] Abnormal Stress Test 10/07/2024 4:52 PM CDT - 10/07/2024 6:07 PM CDT Surgery Division of Cardiovascular Diseases in [address] [phone] Personal Loan SpecialistFred M.D. CORONARY ANGIOGRAPHY WITH POSSIBLE INTERVENTION documented as of this encounter Procedures Procedure Name Priority Date/Time Associated Diagnosis Comments EXTM INR, POCT, B Routine 09/22/2024 7:0 0 AM CDT documented in this encounter Results * (ABNORMAL) EXT INR, POCT (09/22/2024 7:00 AM CDT) EXT INR 1.28(H) 0.91 - 1.10 ML [facility] 09/22/2024 7:00 AM CDT Narrative [facility] - 09/22/2024 1:54 PM CDT External results verified in Extract by Itz Carney on 09/22/2024 at 01:53 PM. us Ordering Provider External M.DJanie LAB POCT ORDERAB LES-MANUAL Final Result [facility] [address] [place] [address], [facility] [phone] documented in this encounter Visit Diagnoses Not on filedocumented in this encounter Care Teams Head Cager Relationship Specialty Start Date End Date Elsewhere, Pcp PCP - General Internal Medicine 03/09/24 documented as of this encounter
--- OUTSIDE RECORDS SUMMARY | 2024-09-25 15:05 | XMS_ITS | Clinical Summary ---
Author Organization [employer] [facility] Address [address] [place] [id number] Care Team Providers Care Director Of Curriculum And Instruction Name Role Phone Mayuri Corcoran MD Primary Care Provider [phone] Allergies No known active allergies Medications lisinopril (PRINIVIL; ZESTRIL) 20 mg tabletIndication s:HTN (hypertension) Take 1 tablet by mouth once daily. 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 Gender Identity Not on file Sexual Orientation Not on file Occupation Industry Job Start Date Job End Date [employer] Not on file Not on [...] 36.8 C (98.2 F) 03/25/2017 8:14 AM WAREHOUSE SHIPPING RECEIVING CLERK Respiratory Rate - - Oxygen Saturation 97% [...] Hepatitis C screening for age 18-79 1992 Hepatitis B series for 19+ (2 of 3 - 19+ 3-dose series) 06/07/2016 05/10/2016 BMI (ht and wt on same day) [...] 10 COVID-19 vaccine series ( season) 2023 03/07/2021, 06/23/2020, 06/02/2020 Influenza Vaccine (#1) 2024 7, 03/02/2015, 12/26/2010, Additional history exists Tetanus booster 05/10/2026 05/10/2016, 03/08/2009 Pneumococcal series for age 6-49 Aged Out No longer eligible based on patient's age to complete this topic Procedures Procedure Name Priority Date/Time Associated Diagnosis Comments LIPID PANEL W REFLEX MEASURED LDL Routine 07/29/2018 8:31 AM CDT Lipid screening EQUITY RESEARCH ANALYST THIN PREP PAP SCREEN IMAGED Routine 07/29/2018 8:05 AM CDT Screening for malignant neoplasm of cervix XR MAMMO BILAT SCREENING Routine 03/07/2016 10:12 AM WAREHOUSE SHIPPING RECEIVING CLERK Visit for screening mammogram from Last 3 Months or Most Recently Relevant to Health Maintenance Results * (ABNORMAL) LIPID PANEL W REFLEX MEASURED LDL [[id number]] (07/29/2018 8:31 AM CDT) CHOLESTEROL,TOTAL 172 100 - 199 mg/dL 07/29/2018 1:47 PM CDT [facility] [employer] [facility] TR[facility] TRIGLYCERIDES 172(H) <150 mg/dL 07/29/2018 1:[address] [facility] HDL CHOLESTEROL 34(L) >40 mg/dL 9 1:[address] [facility] NON-HDL CHOLESTEROL 138 <145 mg/dl 07/29/2018 1:[address] [facility] CHOL/HDL RATIO 5.06(H) <4.50 07/29/2018 1:[address] [facility] LDL CHOLESTEROL 104 <=130 mg/dL 07/29/2018 1:[address] [facility] TR[facility] PROVIDER ORDERED STATUS RANDOM 07/29/2018 1:47 PM CDT [facility] Blood BLOOD SPECIMEN / Unknown Butterfly / Unknown 07/29/2018 8:31 AM CDT 07/29/2018 8:31 AM CDT us Mayuri Corcoran MD CHEMISTRY Final Resul t [facility] [address] [place] [address], [place] * EQUITY RESEARCH ANALYST THIN PREP PAP SCREEN IMAGED [[id number]] (07/29/2018 8:05 AM CDT) Case Report Gynecologic Cytology Report Case: [id number] Authorizing Provider: Mayuri Corcoran MD Collected: 07/29/2018 0805 Ordering Location: [facility] Received: 07/29/2018 0831 Clinic First Screen: Jasen Paula Pathologist: Molina Arias Jr., MD Specimen: EQUITY RESEARCH ANALYST ThinPrep Vial Screening, Cervical 08/05/2018 6:40 AM CDT [facility] INTERPRETATION/ RESULT NEGATIVE FOR INTRAEPITHELIAL LESION OR MALIGNANCY (NIL) (none) 08/05/2018 6:40 AM CDT [facility] [employer] [facility] ENTRSD LABORATORY at 0640 CDT SPECIMEN ADEQUACY Satisfactory for evaluation Endocervical component present 08/05/2018 6:40 AM CDT [facility] HPV REQUEST HPV and PAP 08/05/2018 6:40 AM CDT [facility] Date of LMP 07/11/2018 08/05/2018 6:40 AM CDT [facility] [employer] [facility] Last Pap Date 10/02/11 08/05/2018 6:40 AM CDT [facility] [employer] [facility] Last Pap Result NIL 9 6:40 AM CDT [facility] Abnormal Pap or [place] Bx in last 5 years No 08/05/2018 6:40 AM CDT [facility] Menstrual Status Regular Periods 08/05/2018 6:40 AM CDT [facility] [place] Bx Done Today No 08/05/2018 6:40 AM CDT [facility] [employer] [facility] EN[facility] Additional Information None given 08/05/2018 6:40 AM CDT [facility] Automated Review Successful 08/05/2018 6:[address] [facility]- [facility] LABORATORY Comment:Specimen processed s uccessfully by automated barrel finisher device, Get[employer] Imaging System, [employer] ANCILLARY TESTING EQUITY RESEARCH ANALYST HPV Ordered, Please see separate report 08/05/2018 6:[address] [facility] Note The pap test is a [...] lesions. Cytology is screened and interpreted at [facility] - [address], [place] [address] [address] [facility] - [address]; [place] [address] [address] [facility] - [address]; [place] [address] and [facility] [address]; [place] [address] 08/05/2018 6:40 AM CDT [facility] Other (Cervical) Non-Blood / Unknown 07/29/2018 8:05 AM CDT 07/29/2018 8:31 AM CDT us Mayuri Corcoran MD PATHOLOGY/CYTOLOGY Final Re sult [facility] [address] [place] [address], [place] * XR MAMMO BILAT SCREENING (03/07/2016 10:12 AM WAREHOUSE SHIPPING RECEIVING CLERK) Anatomical Region Laterality Modality BREASTS, Breast Left, Breast Right Bilateral Mammography Impressions 03/07/2016 12:39 PM WAREHOUSE SHIPPING RECEIVING CLERK There is no radiographic evidence for malignancy. Recommend annual mammograms. A lay language report of this examination will be provided to the patient. MAMMOGRAM ASSESSMENT: ACR 2 Benign Narrative 03/07/2016 12:39 PM WAREHOUSE SHIPPING RECEIVING CLERK XR MAMMO BILAT SCREENING [[id number]] CLINICAL HISTORY: This is an asymptomatic 40 [...] Most Recently Relevant to Health Maintenance Insurance [facility] Care Teams Director Of Curriculum And Instruction Relationship Specialty Start Date End Date Mayuri [place] [address] PCP - General Family Practice 09/15/18
--- OUTSIDE RECORDS SUMMARY | 2024-09-25 15:06 | XMS_ITS ---
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 Ordering Clinician Indication Dosage Frequency Signature (SIG) Comments Components calcitriol 09-04 05:00: 00 Yes [id number] Number of Repeats Allowed: Frequency: Three times a week Mircera 06-25 18:04: 37 Yes [id number] Number of Repeats Allowed: Frequency: PAULIE dosing, every two weeks heparin sodium, porcine 06-18 13:45: 42 Yes [id number] Number of Repeats Allowed: Frequency: Every Dialysis TreatmentD osesOrdere d: Hourly Dose 1000 Units/Hr 1:1000 Units/mLRo akhiok: Intravenou s calcium carbonate 04-07 11:53: 47 Yes [id number] Number of Repeats Allowed: Frequency: Every Dialysis Treatment heparin sodium, porcine 02-22 12:13: 45 Yes [id number] Number of Repeats Allowed: Frequency: Every Dialysis TreatmentD osesOrdere d: Post CVC Instillati on 1800 Units 1:1000 Units/mLRo akhiok: Intracathe terDosesOr dered: Post CVC Instillati on 1800 Units 1:1000 Units/mLRo akhiok: Intracathe ter heparin sodium, porcine 2023-02 15:28: 29 Yes [id number] Number of Repeats Allowed: Frequency: Every Dialysis TreatmentD osesOrdere d: Loading Dose 2000 Units 1:1000 Units/mLRo akhiok: Intravenou s Normal Saline Solution 0.9% NaCl 2023-02 11:21: 44 Yes [id number] Number of Repeats Allowed: Frequency: Post-dialy sisDosesOr dered: Arterial Lumen 10 mL Route: Intracathe terDosesOr dered: Venous Lumen 10 mL Route: Intracathe ter Normal Saline Solution 0.9% NaCl 2023-02 11:19: 56 Yes [id number] Number of Repeats Allowed: Frequency: Pre-dialys isDosesOrd ered: Arterial Lumen 10 mL Route: Intracathe terDosesOr dered: Venous Lumen 10 mL Route: Intracathe ter Venofer 09-15 05:00: 00 Yes [id number] Number of Repeats Allowed: Frequency: One time a weekDosesO rdered: Maintenanc e Dose 50 Milligram Route: Intravenou s Oxygen 07-15 11:37: 03 Yes [id number] Number of Repeats Allowed: Frequency: As needed ondansetron hydrochlori de 07-15 11:36: 58 Yes [id number] Number of Repeats Allowed: Frequency: Every 4 hours as needed Normal Saline Solution 0.9% NaCl 07-15 11:36: 49 Yes [id number] Number of Repeats Allowed: Frequency: As needed Nitrostat 07-15 11:35: 16 Yes [id number] Number of Repeats Allowed: Frequency: Every 5 minutes as needed loperamide hydrochlori de 07-15 11:35: 03 Yes [id number] Number of Repeats Allowed: Frequency: Every 4 hours as needed Insta-Gluco se 07-15 11:34: 55 Yes [id number] Number of Repeats Allowed: Frequency: Every 5 minutes as needed diphenhydra mine hydrochlori de 07-15 11:34: 46 Yes [id number] Number of Repeats Allowed: Frequency: Every 4 hours as needed diphenhydra mine hydrochlori de 07-15 11:34: 38 Yes [id number] Number of Repeats Allowed: Frequency: Every 30 minutes as needed clonidine 07-15 11:34: 32 Yes [id number] Number of Repeats Allowed: Frequency: Every 4 hours as needed Antacid Extra Strength 07-15 11:34: 18 Yes [id number] Number of Repeats Allowed: Frequency: Every 4 hours as needed acetaminoph en 07-15 11:34: 07 Yes [id number] Number of Repeats Allowed: Frequency: Every 4 hours as needed acetaminoph en 07-15 11:34: 02 Yes [id number] Number of Repeats Allowed: Frequency: Every 4 hours as needed Problems This patient has no known problems. Procedures Procedure Date / Time Performed Performing Clinician Radha ce Details Central Venous Catheter (CVC) 2024-09-23 05:00:00 Access Site Chest (Right) Access Use Start Date 2024-09-24 05:00:0 0 Central Venous Catheter (CVC)2024-02-20 06:00:00 Access Site Chest (Right) Access Use Start Date 2024-02-23 06:00:0 0 Access Use End Date 2024-09-23 05:00:00 AV [id number] 06:00:00 Access Site Upper Arm (Left) Access Use Start Date 2024-03-18 06:00:0 0 Access Use End Date 2024-02-20 06:00:00 AV [id number] 06:00:00 Access Site Forearm (Left) Access Use Start Date 2024-03-18 06:00:0 0 Central Venous Catheter (CVC)2024-01-21 06:00:00 Access Site Chest (Right) Access Use Start Date 2024-01-21 06:00:0 0 Access Use End Date 2024-02-19 06:00:00 Central Venous Catheter (CVC)2023-12-26 06:00:00 Access Site Chest (Right) Access Use Start Date 2023-12-26 06:00:0 0 Access Use End Date 2024-01-21 06:00:00 Central Venous Catheter (CVC)2023-07-15 05:00:00 Access Site Chest (Right) Access Use Start Date 2023-07-16 05:00:0 0 Access Use End Date 2023-12-26 06:00:00 DIALYSIS TREATMENT INFORMATION Conventional Hemodialysis Date Type Treatment Start Date Treatment End Date Pre-Treatment Vitals Post-Treatment Vitals Weight Gain BFR DFR Actual UF Dialysis Access Augus t 2024 In-Ce nter Hemod ialys is Treat ment 2024-09-24 T10:42:23. 000Z 2024-09-24 T14:19:24. 000Z BP Sitting (Pre-Dialysis) 160/80 mmHg BP Sitting (Post-D ialysis ) 167/ 86 mmHg BP Standing (Pre-Dialysis) 170/104 mmHg BP Standing (P ost-Dialysis) 130/81 mmHg Sitting Heart Rate Pre-Dialysis 86 BPM Sitting Heart Rate Post-Dialysis 70 BPM Standing Heart Rate Pre-Dialysis 88 BPM Standing Heart Rate Post-Dialysis 78 BPM Temperature Pre-Dialysis 98.6 degF Temperature Post -Dialysis 97.4 degF September 22, 2024 In-Center Hemodialysis Treatment 1576-48-18U88:41:08.000Z 7324-73-10K70:07:42.000Z BP Sitting (Pre-Dialysis) 125/73 mmHg BP Sitting (Post-Dialysis) 149/89 mmHg Concurrent Access: falseCentral Venous Catheter (CVC) Chest (Right) ArterialAV Fistula Forearm (Left) Venous BP Standing (Pre-Dialysis) 147/82 mmHg BP Standing (P ost-Dialysis) 121/68 mmHg Sitting Heart Rate Pre-Dialysis 78 BPM Sitting Heart Rate Post-Dialysis 82 BPM Standing Heart Rate Pre-Dialysis 85 BPM Standing Heart Rate Post-Dialysis 87 BPM Temperature Pre-Dialysis 97.4 degF Temperature Post -Dialysis 98 degF September 20, 2024 In-Center Hemodialysis Treatment 0170-51-71T97:31:37.000Z 7630-33-64Y34:05:58.000Z BP Sitting (Pre-Dialysis) 150/78 mmHg BP Sitting (Post-Dialysis) 137/77 mmHg Concurrent Access: falseCentral Venous Catheter (CVC) Chest (Right) ArterialAV Fistula Forearm (Left) Venous BP Standing (Pre-Dialysis) 156/86 mmHg Sitti ng Heart Rate Post-Dialysis 65 BPM Sitting Heart Rate Pre-Dialysis 78 BPM Temperatu re Post-Dialysis 97.5 degF Standing Heart Rate Pre-Dialysis 82 BPM Temperature Pre-Dialysis 98.4 degF September 17, 2024 In-Center Hemodialysis Treatment 1233-42-33T20:40:21.000Z 2622-93-24A06:17:18.000Z BP Sitting (Pre-Dialysis) 158/82 mmHg BP Sitting (Post-Dialysis) 102/63 mmHg Concurrent Access: falseCentral Venous Catheter (CVC) Chest (Right) ArterialAV Fistula Forearm (Left) Venous BP Standing (Pre-Dialysis) 176/96 mmHg BP Standing (P ost-Dialysis) 127/76 mmHg Sitting Heart Rate Pre-Dialysis 74 BPM Sitting Heart Rate Post-Dialysis 61 BPM Standing Heart Rate Pre-Dialysis 79 BPM Standing Heart Rate Post-Dialysis 68 BPM Temperature Pre-Dialysis 98 degF Temperature Post -Dialysis 97.5 degF September 15, 2024 In-Center Hemodialysis Treatment 9295-15-51M97:33:49.000Z 5980-11-95I41:10:36.000Z BP Sitting (Pre-Dialysis) 189/87 mmHg BP Sitting (Post-Dialysis) 145/86 mmHg Concurrent Access: falseCentral Venous Catheter (CVC) Chest (Right) ArterialAV Fistula Forearm (Left) Venous BP Standing (Pre-Dialysis) 176/94 mmHg BP Standing (P ost-Dialysis) 161/87 mmHg Sitting Heart Rate Pre-Dialysis 75 BPM Sitting Heart Rate Post-Dialysis 72 BPM Standing Heart Rate Pre-Dialysis 78 BPM Standing Heart Rate Post-Dialysis 82 BPM Temperature Pre-Dialysis 97.5 degF Temperature Post -Dialysis 97.4 degF September 13, 2024 In-Center Hemodialysis Treatment 5968-83-70R86:34:22.000Z 5919-24-37V13:09:30.000Z BP Sitting (Pre-Dialysis) 153/82 mmHg BP Sitting (Post-Dialysis) 138/77 mmHg Concurrent Access: falseCentral Venous Catheter (CVC) Chest (Right) ArterialAV Fistula Forearm (Left) Venous BP Standing (Pre-Dialysis) 146/84 mmHg BP Standing (P ost-Dialysis) 150/86 mmHg Sitting Heart Rate Pre-Dialysis 68 BPM Sitting Heart Rate Post-Dialysis 70 BPM Standing Heart Rate Pre-Dialysis 70 BPM Standing Heart Rate Post-Dialysis 78 BPM Temperature Pre-Dialysis 98.3 degF Temperature Post -Dialysis 98.2 degF September 10, 2024 In-Center Hemodialysis Treatment 1024-58-09M55:33:42.000Z 0502-38-51V94:08:33.000Z BP Sitting (Pre-Dialysis) 131/68 mmHg BP Sitting (Post-Dialysis) 124/74 mmHg Concurrent Access: falseCentral Venous Catheter (CVC) Chest (Right) ArterialAV Fistula Forearm (Left) Venous BP Standing (Pre-Dialysis) 153/87 mmHg BP Standing (P ost-Dialysis) 134/78 mmHg Sitting Heart Rate Pre-Dialysis 73 BPM Sitting Heart Rate Post-Dialysis 70 BPM Standing Heart Rate Pre-Dialysis 73 BPM Standing Heart Rate Post-Dialysis 90 BPM Temperature Pre-Dialysis 98.1 degF Temperature Post -Dialysis 98 degF September 08, 2024 In-Center Hemodialysis Treatment 5758-10-33A10:29:08.000Z 1993-81-88K51:04:54.000Z BP Sitting (Pre-Dialysis) 144/82 mmHg BP Sitting (Post-Dialysis) 102/61 mmHg Concurrent Access: falseCentral Venous Catheter (CVC) Chest (Right) ArterialAV Fistula Forearm (Left) Venous BP Standing (Pre-Dialysis) 153/78 mmHg BP Standing (P ost-Dialysis) 106/71 mmHg Sitting Heart Rate Pre-Dialysis 75 BPM Sitting Heart Rate Post-Dialysis 68 BPM Standing Heart Rate Pre-Dialysis 79 BPM Standing Heart Rate Post-Dialysis 80 BPM Temperature Pre-Dialysis 98.2 degF Temperature Post -Dialysis 98 degF September 06, 2024 In-Center Hemodialysis Treatment 3119-74-82P49:33:26.000Z 2427-24-43K68:12:07.000Z BP Sitting (Pre-Dialysis) 155/82 mmHg BP Sitting (Post-Dialysis) 136/79 mmHg Concurrent Access: falseCentral Venous Catheter (CVC) Chest (Right) ArterialAV Fistula Forearm (Left) Venous BP Standing (Pre-Dialysis) 152/91 mmHg BP Standing (P ost-Dialysis) 140/74 mmHg Sitting Heart Rate Pre-Dialysis 75 BPM Sitting Heart Rate Post-Dialysis 67 BPM Standing Heart Rate Pre-Dialysis 76 BPM Standing Heart Rate Post-Dialysis 82 BPM Temperature Pre-Dialysis 98 degF Temperature Post -Dialysis 97.4 degF September 03, 2024 In-Center Hemodialysis Treatment 8532-29-88O78:33:25.000Z 8775-07-64Y85:09:26.000Z BP Sitting (Pre-Dialysis) 131/79 mmHg BP Sitting (Post-Dialysis) 135/81 mmHg Concurrent Access: falseCentral Venous Catheter (CVC) Chest (Right) ArterialAV Fistula Forearm (Left) Venous BP Standing (Pre-Dialysis) 145/87 mmHg BP Standing (P ost-Dialysis) 141/76 mmHg Sitting Heart Rate Pre-Dialysis 76 BPM Sitting Heart Rate Post-Dialysis 70 BPM Standing Heart Rate Pre-Dialysis 79 BPM Standing Heart Rate Post-Dialysis 84 BPM Temperature Pre-Dialysis 97.4 degF Temperature Post -Dialysis 97.4 degF September 01, 2024 In-Center Hemodialysis Treatment 1730-06-24Q74:41:00.000Z 8196-68-31N72:23:03.000Z BP Sitting (Pre-Dialysis) 149/75 mmHg BP Sitting (Post-Dialysis) 127/71 mmHg Concurrent Access: falseCentral Venous Catheter (CVC) Chest (Right) ArterialAV Fistula Forearm (Left) Venous BP Standing (Pre-Dialysis) 161/88 mmHg BP Standing (P ost-Dialysis) 122/65 mmHg Sitting Heart Rate Pre-Dialysis 84 BPM Sitting Heart Rate Post-Dialysis 75 BPM Standing Heart Rate Pre-Dialysis 87 BPM Standing Heart Rate Post-Dialysis 87 BPM Temperature Pre-Dialysis 99 degF Temperature Post -Dialysis 97.8 degF August 30, 2024 In-Center Hemodialysis Treatment 5945-10-54H23:40:38.000Z 8065-43-98T19:16:15.000Z BP Sitting (Pre-Dialysis) 119/68 mmHg BP Sitting (Post-Dialysis) 128/49 mmHg Concurrent Access: falseCentral Venous Catheter (CVC) Chest (Right) ArterialAV Fistula Forearm (Left) Venous BP Standing (Pre-Dialysis) 152/80 mmHg BP Standing (P ost-Dialysis) 113/72 mmHg Sitting Heart Rate Pre-Dialysis 73 BPM Sitting Heart Rate Post-Dialysis 81 BPM Standing Heart Rate Pre-Dialysis 77 BPM Standing Heart Rate Post-Dialysis 78 BPM Temperature Pre-Dialysis 97.9 degF Temperature Post -Dialysis 98.2 degF August 27, 2024 In-Center Hemodialysis Treatment 9715-66-36C11:30:06.000Z 4884-64-11L86:06:10.000Z BP Sitting (Pre-Dialysis) 160/75 mmHg BP Sitting (Post-Dialysis) 135/75 mmHg Concurrent Access: falseCentral Venous Catheter (CVC) Chest (Right) ArterialAV Fistula Forearm (Left) Venous BP Standing (Pre-Dialysis) 178/94 mmHg BP Standing (P ost-Dialysis) 127/75 mmHg Sitting Heart Rate Pre-Dialysis 77 BPM Sitting Heart Rate Post-Dialysis 70 BPM Standing Heart Rate Pre-Dialysis 73 BPM Standing Heart Rate Post-Dialysis 78 BPM Temperature Pre-Dialysis 97.6 degF Temperature Post -Dialysis 97.2 degF August 25, 2024 In-Center Hemodialysis Treatment 4429-14-28R97:51:21.000Z 4815-05-58A78:08:49.000Z BP Sitting (Pre-Dialysis) 154/82 mmHg BP Sitting (Post-Dialysis) 123/58 mmHg Concurrent Access: falseCentral Venous Catheter (CVC) Chest (Right) ArterialAV Fistula Forearm (Left) Venous BP Standing (Pre-Dialysis) 163/85 mmHg BP Standing (P ost-Dialysis) 120/52 mmHg Sitting Heart Rate Pre-Dialysis 73 BPM Sitting Heart Rate Post-Dialysis 65 BPM Standing Heart Rate Pre-Dialysis 79 BPM Standing Heart Rate Post-Dialysis 76 BPM Temperature Pre-Dialysis 97.9 degF August 23, 2024 In-Center Hemodialysis Treatment 5989-19-09E96:43:05.000Z 7255-44-78K48:19:44.000Z BP Sitting (Pre-Dialysis) 154/83 mmHg BP Sitting (Post-Dialysis) 142/76 mmHg Concurrent Access: falseCentral Venous Catheter (CVC) Chest (Right) ArterialAV Fistula Forearm (Left) Venous BP Standing (Pre-Dialysis) 143/76 mmHg BP Standing (P ost-Dialysis) 135/71 mmHg Sitting Heart Rate Pre-Dialysis 75 BPM Sitting Heart Rate Post-Dialysis 64 BPM Standing Heart Rate Pre-Dialysis 72 BPM Standing Heart Rate Post-Dialysis 89 BPM Temperature Pre-Dialysis 97.4 degF Temperature Post -Dialysis 97.4 degF August 20, 2024 In-Center Hemodialysis Treatment 3562-55-22N20:48:36.000Z 8785-45-89A62:05:56.000Z BP Sitting (Pre-Dialysis) 177/93 mmHg BP Sitting (Post-Dialysis) 145/83 mmHg Concurrent Access: falseCentral Venous Catheter (CVC) Chest (Right) ArterialAV Fistula Forearm (Left) Venous BP Standing (Pre-Dialysis) 171/95 mmHg BP Standing (P ost-Dialysis) 146/79 mmHg Sitting Heart Rate Pre-Dialysis 75 BPM Sitting Heart Rate Post-Dialysis 85 BPM Standing Heart Rate Pre-Dialysis 78 BPM Standing Heart Rate Post-Dialysis 90 BPM Temperature Pre-Dialysis 97.9 degF Temperature Post -Dialysis 97.4 degF August 18, 2024 In-Center Hemodialysis Treatment 1865-75-93I65:39:43.000Z 6633-85-40N92:17:06.000Z BP Sitting (Pre-Dialysis) 142/82 mmHg BP Sitting (Post-Dialysis) 123/70 mmHg Concurrent Access: falseCentral Venous Catheter (CVC) Chest (Right) ArterialAV Fistula Forearm (Left) Venous BP Standing (Pre-Dialysis) 144/87 mmHg BP Standing (P ost-Dialysis) 110/76 mmHg Sitting Heart Rate Pre-Dialysis 74 BPM Sitting Heart Rate Post-Dialysis 73 BPM Standing Heart Rate Pre-Dialysis 78 BPM Standing Heart Rate Post-Dialysis 85 BPM Temperature Pre-Dialysis 98 degF Temperature Post -Dialysis 97.7 degF August 16, 2024 In-Center Hemodialysis Treatment 4091-76-30F32:38:15.000Z 8530-40-00F42:12:48.000Z BP Sitting (Pre-Dialysis) 153/83 mmHg BP Sitting (Post-Dialysis) 135/76 mmHg Concurrent Access: falseCentral Venous Catheter (CVC) Chest (Right) ArterialAV Fistula Forearm (Left) Venous BP Standing (Pre-Dialysis) 160/91 mmHg BP Standing (P ost-Dialysis) 124/51 mmHg Sitting Heart Rate Pre-Dialysis 74 BPM Sitting Heart Rate Post-Dialysis 73 BPM Standing Heart Rate Pre-Dialysis 75 BPM Standing Heart Rate Post-Dialysis 96 BPM Temperature Pre-Dialysis 98 degF Temperature Post -Dialysis 97.5 degF August 13, 2024 In-Center Hemodialysis Treatment 7549-94-41W85:38:14.000Z 8303-75-48H08:10:23.000Z BP Sitting (Pre-Dialysis) 119/80 mmHg BP Sitting (Post-Dialysis) 120/71 mmHg Concurrent Access: falseCentral Venous Catheter (CVC) Chest (Right) ArterialAV Fistula Forearm (Left) Venous BP Standing (Pre-Dialysis) 137/80 mmHg BP Standing (P ost-Dialysis) 115/62 mmHg Sitting Heart Rate Pre-Dialysis 79 BPM Sitting Heart Rate Post-Dialysis 63 BPM Standing Heart Rate Pre-Dialysis 79 BPM Standing Heart Rate Post-Dialysis 82 BPM Temperature Pre-Dialysis 97.4 degF Temperature Post -Dialysis 97.9 degF August 11, 2024 In-Center Hemodialysis Treatment 2473-42-98V68:32:39.000Z 8617-08-00V60:08:59.000Z BP Sitting (Pre-Dialysis) 132/73 mmHg BP Sitting (Post-Dialysis) 144/79 mmHg Concurrent Access: falseCentral Venous Catheter (CVC) Chest (Right) ArterialAV Fistula Forearm (Left) Venous BP Standing (Pre-Dialysis) 135/83 mmHg BP Standing (P ost-Dialysis) 147/72 mmHg Sitting Heart Rate Pre-Dialysis 72 BPM Sitting Heart Rate Post-Dialysis 71 BPM Standing Heart Rate Pre-Dialysis 76 BPM Standing Heart Rate Post-Dialysis 79 BPM Temperature Pre-Dialysis 97.4 degF Temperature Post -Dialysis 98 degF August 09, 2024 In-Center Hemodialysis Treatment 0351-75-29Y00:36:35.000Z 3421-56-27B52:14:11.000Z BP Sitting (Pre-Dialysis) 139/76 mmHg BP Sitting (Post-Dialysis) 122/71 mmHg Concurrent Access: falseCentral Venous Catheter (CVC) Chest (Right) ArterialAV Fistula Forearm (Left) Venous BP Standing (Pre-Dialysis) 152/85 mmHg BP Standing (P ost-Dialysis) 124/67 mmHg Sitting Heart Rate Pre-Dialysis 80 BPM Sitting Heart Rate Post-Dialysis 69 BPM Standing Heart Rate Pre-Dialysis 83 BPM Standing Heart Rate Post-Dialysis 80 BPM Temperature Pre-Dialysis 98 degF Temperature Post -Dialysis 97.5 degF August 06, 2024 In-Center Hemodialysis Treatment 4458-25-28Y40:36:29.000Z 3792-33-98F72:10:19.000Z BP Sitting (Pre-Dialysis) 147/83 mmHg BP Sitting (Post-Dialysis) 124/60 mmHg Concurrent Access: falseCentral Venous Catheter (CVC) Chest (Right) ArterialAV Fistula Forearm (Left) Venous BP Standing (Pre-Dialysis) 153/84 mmHg BP Standing (P ost-Dialysis) 106/67 mmHg Sitting Heart Rate Pre-Dialysis 73 BPM Sitting Heart Rate Post-Dialysis 78 BPM Standing Heart Rate Pre-Dialysis 78 BPM Standing Heart Rate Post-Dialysis 88 BPM Temperature Pre-Dialysis 98 degF Temperature Post -Dialysis 97.5 degF August 04, 2024 Additional Day Of Dialysis Treatment 4757-63-80Q56:47:49.000Z 2139-62-63L74:22:14.000Z BP Sitting (Pre-Dialysis) 150/84 mmHg BP Sitting (Post-Dialysis) 129/44 mmHg Concurrent Access: falseCentral Venous Catheter (CVC) Chest (Right) ArterialAV Fistula Forearm (Left) Venous BP Standing (Pre-Dialysis) 143/80 mmHg BP Standing (P ost-Dialysis) 129/71 mmHg Sitting Heart Rate Pre-Dialysis 80 BPM Sitting Heart Rate Post-Dialysis 87 BPM Standing Heart Rate Pre-Dialysis 73 BPM Standing Heart Rate Post-Dialysis 72 BPM Temperature Pre-Dialysis 98.1 degF Temperature Post -Dialysis 97.3 degF August 02, 2024 In-Center Hemodialysis Treatment 7953-15-19R68:40:00.000Z 9451-47-88X94:15:41.000Z BP Sitting (Pre-Dialysis) 139/77 mmHg BP Sitting (Post-Dialysis) 138/76 mmHg Concurrent Access: falseCentral Venous Catheter (CVC) Chest (Right) ArterialAV Fistula Forearm (Left) Venous BP Standing (Pre-Dialysis) 143/85 mmHg BP Standing (P ost-Dialysis) 113/72 mmHg Sitting Heart Rate Pre-Dialysis 77 BPM Sitting Heart Rate Post-Dialysis 73 BPM Standing Heart Rate Pre-Dialysis 82 BPM Standing Heart Rate Post-Dialysis 84 BPM Temperature Pre-Dialysis 97.4 degF Temperature Post -Dialysis 97.3 degF July 30, 2024 In-Center Hemodialysis Treatment 9729-71-57Y24:39:13.000Z 9246-07-30E40:18:05.000Z BP Sitting (Pre-Dialysis) 145/84 mmHg BP Sitting (Post-Dialysis) 137/73 mmHg Concurrent Access: falseCentral Venous Catheter (CVC) Chest (Right) ArterialAV Fistula Forearm (Left) Venous BP Standing (Pre-Dialysis) 164/77 mmHg BP Standing (P ost-Dialysis) 128/56 mmHg Sitting Heart Rate Pre-Dialysis 73 BPM Sitting Heart Rate Post-Dialysis 75 BPM Standing Heart Rate Pre-Dialysis 77 BPM Standing Heart Rate Post-Dialysis 86 BPM Temperature Pre-Dialysis 97.9 degF Temperature Post -Dialysis 97.4 degF July 28, 2024 In-Center Hemodialysis Treatment 3255-18-74A89:36:00.000Z 1105-14-51I40:12:00.000Z BP Sitting (Pre-Dialysis) 147/80 mmHg BP Sitting (Post-Dialysis) 149/81 mmHg Concurrent Access: falseCentral Venous Catheter (CVC) Chest (Right) ArterialAV Fistula Forearm (Left) Venous BP Standing (Pre-Dialysis) 144/90 mmHg BP Standing (P ost-Dialysis) 112/77 mmHg Sitting Heart Rate Pre-Dialysis 82 BPM Sitting Heart Rate Post-Dialysis 53 BPM Standing Heart Rate Pre-Dialysis 90 BPM Standing Heart Rate Post-Dialysis 82 BPM Temperature Pre-Dialysis 97.6 degF Temperature Post -Dialysis 97.8 degF July 26, 2024 In-Center Hemodialysis Treatment 1799-27-58J93:47:00.000Z 1214-64-55H98:21:00.000Z BP Sitting (Pre-Dialysis) 139/74 mmHg BP Sitting (Post-Dialysis) 127/77 mmHg Concurrent Access: falseCentral Venous Catheter (CVC) Chest (Right) ArterialAV Fistula Forearm (Left) Venous BP Standing (Pre-Dialysis) 140/79 mmHg BP Standing (P ost-Dialysis) 116/52 mmHg Sitting Heart Rate Pre-Dialysis 81 BPM Sitting Heart Rate Post-Dialysis 72 BPM Standing Heart Rate Pre-Dialysis 88 BPM Standing Heart Rate Post-Dialysis 98 BPM Temperature Pre-Dialysis 97.6 degF Temperature Post -Dialysis 98 degF July 23, 2024 In-Center Hemodialysis Treatment 0694-70-34A55:38:00.000Z 2090-86-20W00:14:54.000Z BP Sitting (Pre-Dialysis) 137/84 mmHg BP Sitting (Post-Dialysis) 125/79 mmHg Concurrent Access: falseCentral Venous Catheter (CVC) Chest (Right) ArterialAV Fistula Forearm (Left) Venous BP Standing (Pre-Dialysis) 137/82 mmHg BP Standing (P ost-Dialysis) 121/77 mmHg Sitting Heart Rate Pre-Dialysis 84 BPM Sitting Heart Rate Post-Dialysis 79 BPM Standing Heart Rate Pre-Dialysis 97 BPM Standing Heart Rate Post-Dialysis 88 BPM Temperature Pre-Dialysis 97.6 degF Temperature Post -Dialysis 98.4 degF July 21, 2024 In-Center Hemodialysis Treatment 2912-45-61U10:40:00.000Z 4438-27-42M57:08:36.000Z BP Sitting (Pre-Dialysis) 140/82 mmHg BP Sitting (Post-Dialysis) 117/80 mmHg Concurrent Access: falseCentral Venous Catheter (CVC) Chest (Right) ArterialAV Fistula Forearm (Left) Venous BP Standing (Pre-Dialysis) 144/89 mmHg BP Standing (P ost-Dialysis) 135/66 mmHg Sitting Heart Rate Pre-Dialysis 78 BPM Sitting Heart Rate Post-Dialysis 71 BPM Standing Heart Rate Pre-Dialysis 81 BPM Standing Heart Rate Post-Dialysis 96 BPM Temperature Pre-Dialysis 98 degF Temperature Post -Dialysis 98 degF July 19, 2024 In-Center Hemodialysis Treatment 4419-39-57N41:40:00.000Z 7755-87-12F89:00:00.000Z BP Sitting (Pre-Dialysis) 123/73 mmHg BP Sitting (Post-Dialysis) 125/74 mmHg Concurrent Access: falseCentral Venous Catheter (CVC) Chest (Right) ArterialAV Fistula Forearm (Left) Venous BP Standing (Pre-Dialysis) 140/84 mmHg BP Standing (P ost-Dialysis) 114/71 mmHg Sitting Heart Rate Pre-Dialysis 72 BPM Sitting Heart Rate Post-Dialysis 75 BPM Standing Heart Rate Pre-Dialysis 75 BPM Standing Heart Rate Post-Dialysis 89 BPM Temperature Pre-Dialysis 98.2 degF Temperature Post -Dialysis 97.6 degF July 16, 2024 In-Center Hemodialysis Treatment 6907-65-79Z29:42:00.000Z 6275-10-62W55:20:00.000Z BP Sitting (Pre-Dialysis) 133/81 mmHg BP Sitting (Post-Dialysis) 108/42 mmHg Concurrent Access: falseCentral Venous Catheter (CVC) Chest (Right) ArterialAV Fistula Forearm (Left) Venous BP Standing (Pre-Dialysis) 127/71 mmHg BP Standing (P ost-Dialysis) 122/57 mmHg Sitting Heart Rate Pre-Dialysis 90 BPM Sitting Heart Rate Post-Dialysis 107 BPM Standing Heart Rate Pre-Dialysis 81 BPM Standing Heart Rate Post-Dialysis 107 BPM Temperature Pre-Dialysis 97.6 degF Temperature Post -Dialysis 97.4 degF July 12, 2024 In-Center Hemodialysis Treatment 9374-61-35R29:45:00.000Z 9355-56-25A15:14:49.000Z BP Sitting (Pre-Dialysis) 148/83 mmHg BP Sitting (Post-Dialysis) 107/49 mmHg Concurrent Access: falseCentral Venous Catheter (CVC) Chest (Right) ArterialAV Fistula Forearm (Left) Venous BP Standing (Pre-Dialysis) 152/97 mmHg BP Standing (P ost-Dialysis) 118/65 mmHg Sitting Heart Rate Pre-Dialysis 87 BPM Sitting Heart Rate Post-Dialysis 73 BPM Standing Heart Rate Pre-Dialysis 95 BPM Standing Heart Rate Post-Dialysis 81 BPM Temperature Pre-Dialysis 97.2 degF Temperature Post -Dialysis 97.3 degF July 09, 2024 In-Center Hemodialysis Treatment [id number]:42:00.000Z [id number]:01:00.000Z BP Sitting (Pre-Dialysis) 139/74 mmHg BP Sitting (Post-Dialysis) 136/83 mmHg Concurrent Access: falseCentral Venous Catheter (CVC) Chest (Right) ArterialAV Fistula Forearm (Left) Venous BP Standing (Pre-Dialysis) 150/89 mmHg BP Standing (P ost-Dialysis) 138/73 mmHg Sitting Heart Rate Pre-Dialysis 69 BPM Sitting Heart Rate Post-Dialysis 83 BPM Standing Heart Rate Pre-Dialysis 75 BPM Standing Heart Rate Post-Dialysis 90 BPM Temperature Pre-Dialysis 97.4 degF Temperature Post -Dialysis 97.6 degF July 07, 2024 In-Center Hemodialysis Treatment [id number]:41:00.000Z 6044-06-58V96:03:31.000Z BP Sitting (Pre-Dialysis) 147/84 mmHg BP Sitting (Post-Dialysis) 114/60 mmHg Concurrent Access: falseCentral Venous Catheter (CVC) Chest (Right) ArterialAV Fistula Forearm (Left) Venous BP Standing (Pre-Dialysis) 139/58 mmHg BP Standing (P ost-Dialysis) 108/54 mmHg Sitting Heart Rate Pre-Dialysis 77 BPM Sitting Heart Rate Post-Dialysis 68 BPM Standing Heart Rate Pre-Dialysis 67 BPM Standing Heart Rate Post-Dialysis 93 BPM Temperature Pre-Dialysis 97.7 degF Temperature Post -Dialysis 97.4 degF July 05, 2024 In-Center Hemodialysis Treatment [id number]:44:00.000Z [id number]:20:00.000Z BP Sitting (Pre-Dialysis) 167/90 mmHg BP Sitting (Post-Dialysis) 120/66 mmHg Concurrent Access: falseCentral Venous Catheter (CVC) Chest (Right) ArterialAV Fistula Forearm (Left) Venous BP Standing (Pre-Dialysis) 165/102 mmHg BP Standing (P ost-Dialysis) 128/76 mmHg Sitting Heart Rate Pre-Dialysis 73 BPM Sitting Heart Rate Post-Dialysis 66 BPM Standing Heart Rate Pre-Dialysis 77 BPM Standing Heart Rate Post-Dialysis 81 BPM Temperature Pre-Dialysis 98 degF Temperature Post -Dialysis 97.4 degF July 02, 2024 In-Center Hemodialysis Treatment 3483-70-05P23:44:47.000Z 6962-85-79F73:00:51.000Z BP Sitting (Pre-Dialysis) 138/76 mmHg BP Sitting (Post-Dialysis) 120/76 mmHg Concurrent Access: falseCentral Venous Catheter (CVC) Chest (Right) ArterialAV Fistula Forearm (Left) Venous BP Standing (Pre-Dialysis) 142/82 mmHg BP Standing (P ost-Dialysis) 114/55 mmHg Sitting Heart Rate Pre-Dialysis 69 BPM Sitting Heart Rate Post-Dialysis 71 BPM Standing Heart Rate Pre-Dialysis 79 BPM Standing Heart Rate Post-Dialysis 88 BPM Temperature Pre-Dialysis 97.5 degF Temperature Post -Dialysis 98 degF June 30, 2024 In-Center Hemodialysis Treatment [id number]:37:10.000Z [id number]:09:14.000Z BP Sitting (Pre-Dialysis) 122/75 mmHg BP Sitting (Post-Dialysis) 104/64 mmHg Concurrent Access: falseCentral Venous Catheter (CVC) Chest (Right) ArterialAV Fistula Forearm (Left) Venous BP Standing (Pre-Dialysis) 135/62 mmHg BP Standing (P ost-Dialysis) 127/63 mmHg Sitting Heart Rate Pre-Dialysis 74 BPM Sitting Heart Rate Post-Dialysis 93 BPM Standing Heart Rate Pre-Dialysis 82 BPM Standing Heart Rate Post-Dialysis 93 BPM Temperature Pre-Dialysis 98 degF Temperature Post -Dialysis 98 degF June 28, 2024 In-Center Hemodialysis Treatment [id number]:38:31.000Z [id number]:51:34.000Z BP Sitting (Pre-Dialysis) 129/74 mmHg BP Sitting (Post-Dialysis) 108/71 mmHg Concurrent Access: falseCentral Venous Catheter (CVC) Chest (Right) ArterialAV Fistula Forearm (Left) Venous BP Standing (Pre-Dialysis) 148/91 mmHg BP Standing (P ost-Dialysis) 128/69 mmHg Sitting Heart Rate Pre-Dialysis 76 BPM Sitting Heart Rate Post-Dialysis 74 BPM Standing Heart Rate Pre-Dialysis 78 BPM Standing Heart Rate Post-Dialysis 86 BPM Temperature Pre-Dialysis 98 degF Temperature Post -Dialysis 98 degF June 25, 2024 In-Center Hemodialysis Treatment [id number]:04:42.000Z [id number]:15:45.000Z BP Sitting (Pre-Dialysis) 126/73 mmHg BP Sitting (Post-Dialysis) 108/76 mmHg Concurrent Access: falseCentral Venous Catheter (CVC) Chest (Right) ArterialAV Fistula Forearm (Left) Venous BP Standing (Pre-Dialysis) 129/74 mmHg BP Standing (P ost-Dialysis) 101/68 mmHg Sitting Heart Rate Pre-Dialysis 68 BPM Sitting Heart Rate Post-Dialysis 76 BPM Standing Heart Rate Pre-Dialysis 77 BPM Standing Heart Rate Post-Dialysis 98 BPM Temperature Pre-Dialysis 97.7 degF Temperature Post -Dialysis 98 degF June 23, 2024 In-Center Hemodialysis Treatment [id number]:43:09.000Z [id number]:16:12.000Z BP Sitting (Pre-Dialysis) 150/79 mmHg BP Sitting (Post-Dialysis) 128/84 mmHg Concurrent Access: falseCentral Venous Catheter (CVC) Chest (Right) ArterialAV Fistula Forearm (Left) Venous BP Standing (Pre-Dialysis) 151/90 mmHg BP Standing (P ost-Dialysis) 144/82 mmHg Sitting Heart Rate Pre-Dialysis 76 BPM Sitting Heart Rate Post-Dialysis 70 BPM Standing Heart Rate Pre-Dialysis 78 BPM Standing Heart Rate Post-Dialysis 70 BPM Temperature Pre-Dialysis 97.5 degF Temperature Post -Dialysis 97.5 degF June 21, 2024 In-Center Hemodialysis Treatment 1682-30-47R91:48:37.000Z [id number]:19:41.000Z BP Sitting (Pre-Dialysis) 145/76 mmHg BP Sitting (Post-Dialysis) 135/88 mmHg Concurrent Access: falseCentral Venous Catheter (CVC) Chest (Right) ArterialAV Fistula Forearm (Left) Venous BP Standing (Pre-Dialysis) 151/87 mmHg BP Standing (P ost-Dialysis) 159/86 mmHg Sitting Heart Rate Pre-Dialysis 78 BPM Sitting Heart Rate Post-Dialysis 80 BPM Standing Heart Rate Pre-Dialysis 85 BPM Standing Heart Rate Post-Dialysis 85 BPM Temperature Pre-Dialysis 97.5 degF Temperature Post -Dialysis 97.2 degF June 18, 2024 In-Center Hemodialysis Treatment [id number]:40:47.000Z 5639-73-75U52:11:51.000Z BP Sitting (Pre-Dialysis) 146/81 mmHg BP Sitting (Post-Dialysis) 126/78 mmHg Concurrent Access: falseCentral Venous Catheter (CVC) Chest (Right) ArterialAV Fistula Forearm (Left) Venous BP Standing (Pre-Dialysis) 152/88 mmHg BP Standing (P ost-Dialysis) 137/77 mmHg Sitting Heart Rate Pre-Dialysis 68 BPM Sitting Heart Rate Post-Dialysis 72 BPM Standing Heart Rate Pre-Dialysis 76 BPM Standing Heart Rate Post-Dialysis 87 BPM Temperature Pre-Dialysis 98 degF Temperature Post -Dialysis 97.6 degF June 16, 2024 In-Center Hemodialysis Treatment [id number]:43:12.000Z 1589-64-76I71:06:15.000Z BP Sitting (Pre-Dialysis) 152/79 mmHg BP Sitting (Post-Dialysis) 127/65 mmHg Concurrent Access: falseCentral Venous Catheter (CVC) Chest (Right) ArterialAV Fistula Forearm (Left) Venous BP Standing (Pre-Dialysis) 162/91 mmHg BP Standing (P ost-Dialysis) 126/69 mmHg Sitting Heart Rate Pre-Dialysis 68 BPM Sitting Heart Rate Post-Dialysis 65 BPM Standing Heart Rate Pre-Dialysis 72 BPM Standing Heart Rate Post-Dialysis 77 BPM Temperature Pre-Dialysis 97.7 degF Temperature Post -Dialysis 98 degF June 14, 2024 In-Center Hemodialysis Treatment [id number]:54:13.000Z 1043-34-24T06:24:16.000Z BP Sitting (Pre-Dialysis) 143/85 mmHg BP Sitting (Post-Dialysis) 139/87 mmHg Concurrent Access: falseCentral Venous Catheter (CVC) Chest (Right) ArterialAV Fistula Forearm (Left) Venous BP Standing (Pre-Dialysis) 152/93 mmHg BP Standing (P ost-Dialysis) 135/87 mmHg Sitting Heart Rate Pre-Dialysis 72 BPM Sitting Heart Rate Post-Dialysis 63 BPM Standing Heart Rate Pre-Dialysis 80 BPM Standing Heart Rate Post-Dialysis 76 BPM Temperature Pre-Dialysis 97.7 degF Temperature Post -Dialysis 97.6 degF June 11, 2024 In-Center Hemodialysis Treatment 8814-19-45A16:51:24.000Z [id number]:24:27.000Z BP Sitting (Pre-Dialysis) 102/82 mmHg BP Sitting (Post-Dialysis) 122/70 mmHg Concurrent Access: falseAV Fistula Forearm (Left) ArterialAV Fistula Forearm (Left) Venous BP Standing (Pre-Dialysis) 134/81 mmHg BP Standing (P ost-Dialysis) 134/74 mmHg Sitting Heart Rate Pre-Dialysis 72 BPM Sitting Heart Rate Post-Dialysis 67 BPM Standing Heart Rate Pre-Dialysis 82 BPM Standing Heart Rate Post-Dialysis 82 BPM Temperature Pre-Dialysis 97.5 degF Temperature Post -Dialysis 98.2 degF June 09, 2024 In-Center Hemodialysis Treatment 5660-40-06Y81:47:37.000Z 9622-54-37N06:27:27.000Z BP Sitting (Pre-Dialysis) 142/80 mmHg BP Sitting (Post-Dialysis) 141/83 mmHg Concurrent Access: falseAV Fistula Forearm (Left) ArterialAV Fistula Forearm (Left) Venous BP Standing (Pre-Dialysis) 146/64 mmHg BP Standing (P ost-Dialysis) 130/82 mmHg Sitting Heart Rate Pre-Dialysis 75 BPM Sitting Heart Rate Post-Dialysis 63 BPM Standing Heart Rate Pre-Dialysis 84 BPM Standing Heart Rate Post-Dialysis 79 BPM Temperature Pre-Dialysis 98.2 degF Temperature Post -Dialysis 97.8 degF June 07, 2024 In-Center Hemodialysis Treatment [id number]:45:05.000Z 8904-17-30C17:14:08.000Z BP Sitting (Pre-Dialysis) 137/79 mmHg BP Sitting (Post-Dialysis) 136/83 mmHg Concurrent Access: falseAV Fistula Forearm (Left) ArterialAV Fistula Forearm (Left) Venous BP Standing (Pre-Dialysis) 158/87 mmHg BP Standing (P ost-Dialysis) 127/80 mmHg Sitting Heart Rate Pre-Dialysis 72 BPM Sitting Heart Rate Post-Dialysis 66 BPM Standing Heart Rate Pre-Dialysis 74 BPM Standing Heart Rate Post-Dialysis 81 BPM Temperature Pre-Dialysis 97.9 degF Temperature Post -Dialysis 98 degF June 04, 2024 In-Center Hemodialysis Treatment [id number]:48:13.000Z [id number]:09:17.000Z BP Sitting (Pre-Dialysis) 143/81 mmHg BP Sitting (Post-Dialysis) 132/74 mmHg Concurrent Access: falseAV Fistula Forearm (Left) ArterialAV Fistula Forearm (Left) Venous BP Standing (Pre-Dialysis) 148/86 mmHg BP Standing (P ost-Dialysis) 110/75 mmHg Sitting Heart Rate Pre-Dialysis 80 BPM Sitting Heart Rate Post-Dialysis 75 BPM Standing Heart Rate Pre-Dialysis 83 BPM Standing Heart Rate Post-Dialysis 96 BPM Temperature Pre-Dialysis 97.6 degF Temperature Post -Dialysis 97.8 degF June 02, 2024 In-Center Hemodialysis Treatment 4976-35-12M08:01:29.000Z 7163-44-06H43:19:32.000Z BP Sitting (Pre-Dialysis) 129/57 mmHg BP Sitting (Post-Dialysis) 109/71 mmHg Concurrent Access: falseAV Fistula Forearm (Left) ArterialAV Fistula Forearm (Left) Venous BP Standing (Pre-Dialysis) 147/83 mmHg BP Standing (P ost-Dialysis) 121/62 mmHg Sitting Heart Rate Pre-Dialysis 66 BPM Sitting Heart Rate Post-Dialysis 70 BPM Standing Heart Rate Pre-Dialysis 71 BPM Standing Heart Rate Post-Dialysis 88 BPM Temperature Pre-Dialysis 97.6 degF Temperature Post -Dialysis 97.6 degF May 31, 2024 In-Center Hemodialysis Treatment [id number]:48:23.000Z 5366-24-17I33:23:00.000Z BP Sitting (Pre-Dialysis) 141/79 mmHg BP Sitting (Post-Dialysis) 143/85 mmHg Concurrent Access: trueAV Fistula Forearm (Left) ArterialCentral Venous Catheter (CVC) Chest (Right) Venous BP Standing (Pre-Dialysis) 149/88 mmHg BP Standing (P ost-Dialysis) 115/83 mmHg Sitting Heart Rate Pre-Dialysis 73 BPM Sitting Heart Rate Post-Dialysis 76 BPM Standing Heart Rate Pre-Dialysis 79 BPM Standing Heart Rate Post-Dialysis 95 BPM Temperature Pre-Dialysis 98.4 degF Temperature Post -Dialysis 97.8 degF May 28, 2024 In-Center Hemodialysis Treatment [id number]:51:58.000Z 7615-51-34M00:26:02.000Z BP Sitting (Pre-Dialysis) 129/71 mmHg BP Sitting (Post-Dialysis) 136/75 mmHg Concurrent Access: trueAV Fistula Forearm (Left) ArterialCentral Venous Catheter (CVC) Chest (Right) Venous BP Standing (Pre-Dialysis) 135/80 mmHg BP Standing (P ost-Dialysis) 119/83 mmHg Sitting Heart Rate Pre-Dialysis 69 BPM Sitting Heart Rate Post-Dialysis 68 BPM Standing Heart Rate Pre-Dialysis 75 BPM Standing Heart Rate Post-Dialysis 84 BPM Temperature Pre-Dialysis 98.2 degF Temperature Post -Dialysis 97.8 degF May 26, 2024 In-Center Hemodialysis Treatment [id number]:04:25.000Z 9570-75-27S94:37:29.000Z BP Sitting (Pre-Dialysis) 132/78 mmHg BP Sitting (Post-Dialysis) 131/78 mmHg Concurrent Access: trueAV Fistula Forearm (Left) ArterialAV Fistula Forearm (Left) Venous BP Standing (Pre-Dialysis) 148/94 mmHg BP Standing (P ost-Dialysis) 123/73 mmHg Sitting Heart Rate Pre-Dialysis 72 BPM Sitting Heart Rate Post-Dialysis 72 BPM Standing Heart Rate Pre-Dialysis 81 BPM Standing Heart Rate Post-Dialysis 83 BPM Temperature Pre-Dialysis 97.6 degF Temperature Post -Dialysis 98 degF May 24, 2024 In-Center Hemodialysis Treatment 4481-27-49P38:34:52.000Z 5671-64-80Z39:29:55.000Z BP Sitting (Pre-Dialysis) 148/85 mmHg BP Sitting (Post-Dialysis) 151/85 mmHg Concurrent Access: falseCentral Venous Catheter (CVC) Chest (Right) ArterialAV Fistula Forearm (Left) Venous BP Standing (Pre-Dialysis) 155/90 mmHg BP Standing (P ost-Dialysis) 146/86 mmHg Sitting Heart Rate Pre-Dialysis 69 BPM Sitting Heart Rate Post-Dialysis 66 BPM Standing Heart Rate Pre-Dialysis 74 BPM Standing Heart Rate Post-Dialysis 75 BPM Temperature Pre-Dialysis 98 degF Temperature Post -Dialysis 97.5 degF May 21, 2024 In-Center Hemodialysis Treatment 6823-69-01Q93:50:03.000Z 2435-67-02K42:01:06.000Z BP Sitting (Pre-Dialysis) 128/73 mmHg BP Sitting (Post-Dialysis) 118/77 mmHg Concurrent Access: falseCentral Venous Catheter (CVC) Chest (Right) ArterialAV Fistula Forearm (Left) Venous BP Standing (Pre-Dialysis) 143/82 mmHg BP Standing (P ost-Dialysis) 104/67 mmHg Sitting Heart Rate Pre-Dialysis 74 BPM Sitting Heart Rate Post-Dialysis 76 BPM Standing Heart Rate Pre-Dialysis 83 BPM Standing Heart Rate Post-Dialysis 92 BPM Temperature Pre-Dialysis 98.5 degF Temperature Post -Dialysis 97.1 degF May 19, 2024 In-Center Hemodialysis Treatment 8213-51-84K97:55:29.000Z 1366-49-05X11:26:32.000Z BP Sitting (Pre-Dialysis) 143/83 mmHg BP Sitting (Post-Dialysis) 129/75 mmHg Concurrent Access: falseCentral Venous Catheter (CVC) Chest (Right) ArterialAV Fistula Forearm (Left) Venous BP Standing (Pre-Dialysis) 150/86 mmHg BP Standing (P ost-Dialysis) 114/67 mmHg Sitting Heart Rate Pre-Dialysis 71 BPM Sitting Heart Rate Post-Dialysis 76 BPM Standing Heart Rate Pre-Dialysis 80 BPM Standing Heart Rate Post-Dialysis 86 BPM Temperature Pre-Dialysis 97.9 degF Temperature Post -Dialysis 97.8 degF May 17, 2024 In-Center Hemodialysis Treatment 4799-45-46F42:56:23.000Z 8520-10-94M79:27:27.000Z BP Sitting (Pre-Dialysis) 144/80 mmHg BP Sitting (Post-Dialysis) 147/86 mmHg Concurrent Access: falseCentral Venous Catheter (CVC) Chest (Right) ArterialAV Fistula Forearm (Left) Venous BP Standing (Pre-Dialysis) 143/94 mmHg BP Standing (P ost-Dialysis) 123/80 mmHg Sitting Heart Rate Pre-Dialysis 73 BPM Sitting Heart Rate Post-Dialysis 72 BPM Standing Heart Rate Pre-Dialysis 80 BPM Standing Heart Rate Post-Dialysis 81 BPM Temperature Pre-Dialysis 97.6 degF Temperature Post -Dialysis 97.1 degF May 14, 2024 In-Center Hemodialysis Treatment 8345-07-13H32:54:22.000Z 7119-18-49Y87:26:26.000Z BP Sitting (Pre-Dialysis) 139/82 mmHg BP Sitting (Post-Dialysis) 140/88 mmHg Concurrent Access: falseCentral Venous Catheter (CVC) Chest (Right) ArterialAV Fistula Forearm (Left) Venous BP Standing (Pre-Dialysis) 140/92 mmHg BP Standing (P ost-Dialysis) 107/71 mmHg Sitting Heart Rate Pre-Dialysis 70 BPM Sitting Heart Rate Post-Dialysis 72 BPM Standing Heart Rate Pre-Dialysis 78 BPM Standing Heart Rate Post-Dialysis 89 BPM Temperature Pre-Dialysis 98.4 degF Temperature Post -Dialysis 97.6 degF May 12, 2024 In-Center Hemodialysis Treatment [id number]:56:50.000Z 9387-32-73P53:28:53.000Z BP Sitting (Pre-Dialysis) 130/73 mmHg BP Sitting (Post-Dialysis) 134/86 mmHg Concurrent Access: falseCentral Venous Catheter (CVC) Chest (Right) ArterialAV Fistula Forearm (Left) Venous BP Standing (Pre-Dialysis) 151/84 mmHg BP Standing (P ost-Dialysis) 133/80 mmHg Sitting Heart Rate Pre-Dialysis 75 BPM Sitting Heart Rate Post-Dialysis 70 BPM Standing Heart Rate Pre-Dialysis 82 BPM Standing Heart Rate Post-Dialysis 86 BPM Temperature Pre-Dialysis 98 degF Temperature Post -Dialysis 98 degF May 10, 2024 In-Center Hemodialysis Treatment 2360-11-17G90:24:16.000Z 4415-36-27T42:13:35.000Z BP Sitting (Pre-Dialysis) 142/77 mmHg BP Sitting (Post-Dialysis) 171/98 mmHg Concurrent Access: falseCentral Venous Catheter (CVC) Chest (Right) ArterialAV Fistula Forearm (Left) Venous BP Standing (Pre-Dialysis) 150/85 mmHg BP Standing (P ost-Dialysis) 144/88 mmHg Sitting Heart Rate Pre-Dialysis 78 BPM Sitting Heart Rate Post-Dialysis 77 BPM Standing Heart Rate Pre-Dialysis 87 BPM Standing Heart Rate Post-Dialysis 90 BPM Temperature Pre-Dialysis 98.5 degF Temperature Post -Dialysis 96.7 degF May 07, 2024 InCenter Hemodialysis Treatment 0628-87-31L39:09:00.000Z 5497-79-24G07:30:30.000Z BP Sitting (Pre-Dialysis) 140/74 mmHg BP Sitting (Post-Dialysis) 126/84 mmHg Concurrent Access: falseCentral Venous Catheter (CVC) Chest (Right) ArterialAV Fistula Forearm (Left) Venous BP Standing (Pre-Dialysis) 130/82 mmHg Sitti ng Heart Rate Post-Dialysis 84 BPM Sitting Heart Rate Pre-Dialysis 81 BPM Temperatu re Post-Dialysis 97.6 degF Standing Heart Rate Pre-Dialysis 86 BPM Temperature Pre-Dialysis 98.2 degF May 05, 2024 In-Center Hemodialysis Treatment 3537-68-22N30:04:53.000Z 5843-75-46D24:33:56.000Z BP Sitting (Pre-Dialysis) 132/77 mmHg BP Sitting (Post-Dialysis) 116/71 mmHg Concurrent Access: falseCentral Venous Catheter (CVC) Chest (Right) ArterialAV Fistula Forearm (Left) Venous BP Standing (Pre-Dialysis) 135/78 mmHg BP Standing (P ost-Dialysis) 109/63 mmHg Sitting Heart Rate Pre-Dialysis 76 BPM Sitting Heart Rate Post-Dialysis 78 BPM Standing Heart Rate Pre-Dialysis 82 BPM Standing Heart Rate Post-Dialysis 93 BPM Temperature Pre-Dialysis 98 degF Temperature Post -Dialysis 97.6 degF May 03, 2024 In-Center Hemodialysis Treatment 9141-26-18B49:30:19.000Z 8640-73-08M57:54:23.000Z BP Sitting (Pre-Dialysis) 150/84 mmHg BP Sitting (Post-Dialysis) 140/87 mmHg Concurrent Access: falseCentral Venous Catheter (CVC) Chest (Right) ArterialAV Fistula Forearm (Left) Venous BP Standing (Pre-Dialysis) 132/70 mmHg BP Standing (P ost-Dialysis) 159/94 mmHg Sitting Heart Rate Pre-Dialysis 64 BPM Sitting Heart Rate Post-Dialysis 78 BPM Standing Heart Rate Pre-Dialysis 80 BPM Standing Heart Rate Post-Dialysis 94 BPM Temperature Pre-Dialysis 98 degF Temperature Post -Dialysis 98.2 degF April 30, 2024 In-Center Hemodialysis Treatment 0139-72-16U39:05:30.000Z 0122-27-01Y32:36:33.000Z BP Sitting (Pre-Dialysis) 129/73 mmHg BP Sitting (Post-Dialysis) 134/85 mmHg Concurrent Access: falseCentral Venous Catheter (CVC) Chest (Right) ArterialAV Fistula Forearm (Left) Venous BP Standing (Pre-Dialysis) 127/61 mmHg BP Standing (P ost-Dialysis) 148/81 mmHg Sitting Heart Rate Pre-Dialysis 81 BPM Sitting Heart Rate Post-Dialysis 90 BPM Standing Heart Rate Pre-Dialysis 80 BPM Standing Heart Rate Post-Dialysis 75 BPM Temperature Pre-Dialysis 98.1 degF Temperature Post -Dialysis 97.9 degF April 28, 2024 In-Center Hemodialysis Treatment [id number]:50:56.000Z 8438-60-85A29:22:59.000Z BP Sitting (Pre-Dialysis) 152/87 mmHg BP Sitting (Post-Dialysis) 138/88 mmHg Concurrent Access: falseCentral Venous Catheter (CVC) Chest (Right) ArterialAV Fistula Forearm (Left) Venous BP Standing (Pre-Dialysis) 136/93 mmHg BP Standing (P ost-Dialysis) 114/80 mmHg Sitting Heart Rate Pre-Dialysis 71 BPM Sitting Heart Rate Post-Dialysis 68 BPM Standing Heart Rate Pre-Dialysis 86 BPM Standing Heart Rate Post-Dialysis 97 BPM Temperature Pre-Dialysis 97.4 degF Temperature Post -Dialysis 98.1 degF April 26, 2024 In-Center Hemodialysis Treatment 8971-04-09N72:54:22.000Z 2923-63-48K39:25:25.000Z BP Sitting (Pre-Dialysis) 152/86 mmHg BP Sitting (Post-Dialysis) 131/82 mmHg Concurrent Access: falseCentral Venous Catheter (CVC) Chest (Right) ArterialAV Fistula Forearm (Left) Venous BP Standing (Pre-Dialysis) 141/87 mmHg BP Standing (P ost-Dialysis) 105/77 mmHg Sitting Heart Rate Pre-Dialysis 71 BPM Sitting Heart Rate Post-Dialysis 71 BPM Standing Heart Rate Pre-Dialysis 78 BPM Standing Heart Rate Post-Dialysis 84 BPM Temperature Pre-Dialysis 98.7 degF Temperature Post -Dialysis 97.9 degF April 23, 2024 In-Center Hemodialysis Treatment 6380-87-26Z03:54:49.000Z 8535-21-41E15:27:52.000Z BP Sitting (Pre-Dialysis) 142/102 mmHg BP Sitting (Post-Dialysis) 148/87 mmHg Concurrent Access: falseCentral Venous Catheter (CVC) Chest (Right) ArterialAV Fistula Forearm (Left) Venous BP Standing (Pre-Dialysis) 140/83 mmHg BP Standing (P ost-Dialysis) 130/82 mmHg Sitting Heart Rate Pre-Dialysis 76 BPM Sitting Heart Rate Post-Dialysis 79 BPM Standing Heart Rate Pre-Dialysis 83 BPM Standing Heart Rate Post-Dialysis 98 BPM Temperature Pre-Dialysis 98.4 degF Temperature Post -Dialysis 97.8 degF April 21, 2024 In-Center Hemodialysis Treatment 2078-40-86L33:07:10.000Z 1784-88-22H99:39:13.000Z BP Sitting (Pre-Dialysis) 146/83 mmHg BP Sitting (Post-Dialysis) 144/80 mmHg Concurrent Access: falseCentral Venous Catheter (CVC) Chest (Right) ArterialAV Fistula Forearm (Left) Venous BP Standing (Pre-Dialysis) 155/86 mmHg BP Standing (P ost-Dialysis) 153/76 mmHg Sitting Heart Rate Pre-Dialysis 75 BPM Sitting Heart Rate Post-Dialysis 72 BPM Standing Heart Rate Pre-Dialysis 86 BPM Standing Heart Rate Post-Dialysis 95 BPM Temperature Pre-Dialysis 98.3 degF Temperature Post -Dialysis 98 degF April 19, 2024 In-Center Hemodialysis Treatment 0113-44-21V37:00:36.000Z 0187-11-08Z48:26:40.000Z BP Sitting (Pre-Dialysis) 152/88 mmHg BP Sitting (Post-Dialysis) 120/67 mmHg Concurrent Access: falseAV Fistula Forearm (Left) ArterialCentral Venous Catheter (CVC) Chest (Right) Venous BP Standing (Pre-Dialysis) 156/94 mmHg BP Standing (P ost-Dialysis) 120/67 mmHg Sitting Heart Rate Pre-Dialysis 76 BPM Sitting Heart Rate Post-Dialysis 76 BPM Standing Heart Rate Pre-Dialysis 82 BPM Standing Heart Rate Post-Dialysis 94 BPM Temperature Pre-Dialysis 98.1 degF Temperature Post -Dialysis 98 degF April 16, 2024 In-Center Hemodialysis Treatment 8669-84-89V61:56:47.000Z 3875-44-87E76:27:50.000Z BP Sitting (Pre-Dialysis) 166/88 mmHg BP Sitting (Post-Dialysis) 146/84 mmHg Concurrent Access: falseAV Fistula Forearm (Left) ArterialAV Fistula Forearm (Left) Venous BP Standing (Pre-Dialysis) 154/87 mmHg BP Standing (P ost-Dialysis) 144/91 mmHg Sitting Heart Rate Pre-Dialysis 70 BPM Sitting Heart Rate Post-Dialysis 67 BPM Standing Heart Rate Pre-Dialysis 83 BPM Standing Heart Rate Post-Dialysis 94 BPM Temperature Pre-Dialysis 98.3 degF Temperature Post -Dialysis 97.2 degF April 14, 2024 In-Center Hemodialysis Treatment 2592-14-51K23:50:13.000Z 2121-89-91U48:25:16.000Z BP Sitting (Pre-Dialysis) 134/77 mmHg BP Sitting (Post-Dialysis) 136/79 mmHg Concurrent Access: falseAV Fistula Forearm (Left) ArterialAV Fistula Forearm (Left) Venous BP Standing (Pre-Dialysis) 157/86 mmHg BP Standing (P ost-Dialysis) 143/78 mmHg Sitting Heart Rate Pre-Dialysis 65 BPM Sitting Heart Rate Post-Dialysis 66 BPM Standing Heart Rate Pre-Dialysis 72 BPM Standing Heart Rate Post-Dialysis 78 BPM Temperature Pre-Dialysis 97.3 degF Temperature Post -Dialysis 97.5 degF April 12, 2024 In-Center Hemodialysis Treatment 2474-16-63F50:02:41.000Z 1155-49-18X35:39:44.000Z BP Sitting (Pre-Dialysis) 217/106 mmHg BP Sitting (Post-Dialysis) 172/99 mmHg Concurrent Access: falseAV Fistula Forearm (Left) ArterialCentral Venous Catheter (CVC) Chest (Right) Venous BP Standing (Pre-Dialysis) 221/116 mmHg BP Standing (P ost-Dialysis) 164/87 mmHg Sitting Heart Rate Pre-Dialysis 64 BPM Sitting Heart Rate Post-Dialysis 63 BPM Standing Heart Rate Pre-Dialysis 68 BPM Standing Heart Rate Post-Dialysis 75 BPM Temperature Pre-Dialysis 98 degF Temperature Post -Dialysis 98 degF April 09, 2024 In-Center Hemodialysis Treatment 8573-56-72T90:50:52.000Z [id number]:21:56.000Z BP Sitting (Pre-Dialysis) 193/95 mmHg BP Sitting (Post-Dialysis) 163/88 mmHg Concurrent Access: falseAV Fistula Forearm (Left) ArterialAV Fistula Forearm (Left) Venous BP Standing (Pre-Dialysis) 213/110 mmHg BP Standing (P ost-Dialysis) 153/76 mmHg Sitting Heart Rate Pre-Dialysis 60 BPM Sitting Heart Rate Post-Dialysis 55 BPM Standing Heart Rate Pre-Dialysis 62 BPM Standing Heart Rate Post-Dialysis 64 BPM Temperature Pre-Dialysis 97.6 degF Temperature Post -Dialysis 97.9 degF April 07, 2024 In-Center Hemodialysis Treatment 9340-04-15U09:58:19.000Z 0601-71-16D29:30:24.000Z BP Sitting (Pre-Dialysis) 163/89 mmHg BP Sitting (Post-Dialysis) 164/83 mmHg Concurrent Access: falseAV Fistula Forearm (Left) ArterialAV Fistula Forearm (Left) Venous BP Standing (Pre-Dialysis) 164/96 mmHg BP Standing (P ost-Dialysis) 126/60 mmHg Sitting Heart Rate Pre-Dialysis 71 BPM Sitting Heart Rate Post-Dialysis 63 BPM Standing Heart Rate Pre-Dialysis 71 BPM Standing Heart Rate Post-Dialysis 86 BPM Temperature Pre-Dialysis 98.5 degF Temperature Post -Dialysis 98.1 degF April 05, 2024 In-Center Hemodialysis Treatment [id number]:13:00.000Z [id number]:48:47.000Z BP Sitting (Pre-Dialysis) 159/83 mmHg BP Sitting (Post-Dialysis) 158/96 mmHg Concurrent Access: trueAV Fistula Forearm (Left) ArterialCentral Venous Catheter (CVC) Chest (Right) Venous BP Standing (Pre-Dialysis) 152/89 mmHg BP Standing (P ost-Dialysis) 158/83 mmHg Sitting Heart Rate Pre-Dialysis 66 BPM Sitting Heart Rate Post-Dialysis 69 BPM Standing Heart Rate Pre-Dialysis 68 BPM Standing Heart Rate Post-Dialysis 90 BPM Temperature Pre-Dialysis 98.2 degF Temperature Post -Dialysis 98.1 degF April 02, 2024 In-Center Hemodialysis Treatment [id number]:48:40.000Z 9488-78-87I89:19:44.000Z BP Sitting (Pre-Dialysis) 149/81 mmHg BP Sitting (Post-Dialysis) 150/82 mmHg Concurrent Access: falseAV Fistula Forearm (Left) ArterialAV Fistula Forearm (Left) Venous BP Standing (Pre-Dialysis) 152/90 mmHg BP Standing (P ost-Dialysis) 147/81 mmHg Sitting Heart Rate Pre-Dialysis 63 BPM Sitting Heart Rate Post-Dialysis 55 BPM Standing Heart Rate Pre-Dialysis 69 BPM Standing Heart Rate Post-Dialysis 65 BPM Temperature Pre-Dialysis 98.2 degF Temperature Post -Dialysis 97.9 degF March 31, 2024 In-Center Hemodialysis Treatment [id number]:52:08.000Z [id number]:25:11.000Z BP Sitting (Pre-Dialysis) 171/79 mmHg BP Sitting (Post-Dialysis) 145/79 mmHg Concurrent Access: falseCentral Venous Catheter (CVC) Chest (Right) ArterialAV Fistula Forearm (Left) Venous BP Standing (Pre-Dialysis) 165/96 mmHg BP Standing (P ost-Dialysis) 142/82 mmHg Sitting Heart Rate Pre-Dialysis 71 BPM Sitting Heart Rate Post-Dialysis 55 BPM Standing Heart Rate Pre-Dialysis 73 BPM Standing Heart Rate Post-Dialysis 69 BPM Temperature Pre-Dialysis 97.5 degF Temperature Post -Dialysis 97.9 degF March 29, 2024 In-Center Hemodialysis Treatment [id number]:54:34.000Z 0569-28-63E03:25:37.000Z BP Sitting (Pre-Dialysis) 148/85 mmHg BP Sitting (Post-Dialysis) 148/73 mmHg Concurrent Access: falseCentral Venous Catheter (CVC) Chest (Right) ArterialAV Fistula Forearm (Left) Venous BP Standing (Pre-Dialysis) 155/92 mmHg BP Standing (P ost-Dialysis) 147/52 mmHg Sitting Heart Rate Pre-Dialysis 63 BPM Sitting Heart Rate Post-Dialysis 60 BPM Standing Heart Rate Pre-Dialysis 72 BPM Standing Heart Rate Post-Dialysis 85 BPM Temperature Pre-Dialysis 97.6 degF Temperature Post -Dialysis 97.8 degF March 26, 2024 In-Center Hemodialysis Treatment [id number]:59:16.000Z 0713-02-20E46:29:19.000Z BP Sitting (Pre-Dialysis) 152/86 mmHg BP Sitting (Post-Dialysis) 134/77 mmHg Concurrent Access: falseCentral Venous Catheter (CVC) Chest (Right) ArterialAV Fistula Forearm (Left) Venous BP Standing (Pre-Dialysis) 152/88 mmHg BP Standing (P ost-Dialysis) 109/57 mmHg Sitting Heart Rate Pre-Dialysis 91 BPM Sitting Heart Rate Post-Dialysis 74 BPM Standing Heart Rate Pre-Dialysis 96 BPM Standing Heart Rate Post-Dialysis 93 BPM Temperature Pre-Dialysis 98.7 degF Temperature Post -Dialysis 98.4 degF March 24, 2024 In-Center Hemodialysis Treatment 8734-96-21P52:57:00.000Z 7198-30-78N48:17:45.000Z BP Sitting (Pre-Dialysis) 164/85 mmHg BP Sitting (Post-Dialysis) 168/86 mmHg Concurrent Access: falseCentral Venous Catheter (CVC) Chest (Right) ArterialAV Fistula Forearm (Left) Venous BP Standing (Pre-Dialysis) 198/113 mmHg BP Standing (P ost-Dialysis) 136/72 mmHg Sitting Heart Rate Pre-Dialysis 88 BPM Sitting Heart Rate Post-Dialysis 75 BPM Standing Heart Rate Pre-Dialysis 88 BPM Standing Heart Rate Post-Dialysis 93 BPM Temperature Pre-Dialysis 97.5 degF Temperature Post -Dialysis 98.4 degF March 22, 2024 In-Center Hemodialysis Treatment [id number]:02:08.000Z 0951-26-65P41:30:11.000Z BP Sitting (Pre-Dialysis) 188/98 mmHg BP Sitting (Post-Dialysis) 172/82 mmHg Concurrent Access: falseCentral Venous Catheter (CVC) Chest (Right) ArterialAV Fistula Forearm (Left) Venous BP Standing (Pre-Dialysis) 168/82 mmHg BP Standing (P ost-Dialysis) 157/88 mmHg Sitting Heart Rate Pre-Dialysis 68 BPM Sitting Heart Rate Post-Dialysis 62 BPM Standing Heart Rate Pre-Dialysis 62 BPM Standing Heart Rate Post-Dialysis 76 BPM Temperature Pre-Dialysis 97.8 degF Temperature Post -Dialysis 97.8 degF March 19, 2024 In-Center Hemodialysis Treatment 1258-27-37I09:55:00.000Z 7356-15-48F91:30:25.000Z BP Sitting (Pre-Dialysis) 150/84 mmHg BP Sitting (Post-Dialysis) 150/80 mmHg Concurrent Access: falseCentral Venous Catheter (CVC) Chest (Right) ArterialAV Fistula Forearm (Left) Venous BP Standing (Pre-Dialysis) 158/95 mmHg BP Standing (P ost-Dialysis) 159/85 mmHg Sitting Heart Rate Pre-Dialysis 75 BPM Sitting Heart Rate Post-Dialysis 68 BPM Standing Heart Rate Pre-Dialysis 81 BPM Standing Heart Rate Post-Dialysis 73 BPM Temperature Pre-Dialysis 98.3 degF Temperature Post -Dialysis 98.1 degF March 17, 2024 In-Center Hemodialysis Treatment 8579-16-12I90:56:48.000Z 6510-33-32L84:26:51.000Z BP Sitting (Pre-Dialysis) 147/104 mmHg BP Sitting (Post-Dialysis) 130/78 mmHg Concurrent Access: falseCentral Venous Catheter (CVC) Chest (Right) ArterialAV Fistula Forearm (Left) Venous BP Standing (Pre-Dialysis) 164/90 mmHg BP Standing (P ost-Dialysis) 131/73 mmHg Sitting Heart Rate Pre-Dialysis 75 BPM Sitting Heart Rate Post-Dialysis 75 BPM Standing Heart Rate Pre-Dialysis 78 BPM Standing Heart Rate Post-Dialysis 96 BPM Temperature Pre-Dialysis 98.4 degF Temperature Post -Dialysis 98.2 degF March 15, 2024 In-Center Hemodialysis Treatment [id number]:02:14.000Z [id number]:36:17.000Z BP Sitting (Pre-Dialysis) 162/84 mmHg BP Sitting (Post-Dialysis) 165/86 mmHg Concurrent Access: falseCentral Venous Catheter (CVC) Chest (Right) ArterialAV Fistula Forearm (Left) Venous BP Standing (Pre-Dialysis) 167/99 mmHg BP Standing (P ost-Dialysis) 158/71 mmHg Sitting Heart Rate Pre-Dialysis 71 BPM Sitting Heart Rate Post-Dialysis 70 BPM Standing Heart Rate Pre-Dialysis 76 BPM Standing Heart Rate Post-Dialysis 102 BPM Temperature Pre-Dialysis 98.3 degF Temperature Post -Dialysis 98 degF March 12, 2024 In-Center Hemodialysis Treatment [id number]:52:24.000Z 9239-77-47Y34:25:27.000Z BP Sitting (Pre-Dialysis) 143/79 mmHg BP Sitting (Post-Dialysis) 144/72 mmHg Concurrent Access: falseCentral Venous Catheter (CVC) Chest (Right) ArterialAV Fistula Forearm (Left) Venous BP Standing (Pre-Dialysis) 160/91 mmHg BP Standing (P ost-Dialysis) 131/92 mmHg Sitting Heart Rate Pre-Dialysis 73 BPM Sitting Heart Rate Post-Dialysis 63 BPM Standing Heart Rate Pre-Dialysis 76 BPM Standing Heart Rate Post-Dialysis 81 BPM Temperature Pre-Dialysis 98.3 degF Temperature Post -Dialysis 98.1 degF March 10, 2024 In-Center Hemodialysis Treatment [id number]:51:50.000Z 7198-64-57Y25:17:53.000Z BP Sitting (Pre-Dialysis) 135/76 mmHg BP Sitting (Post-Dialysis) 143/81 mmHg Concurrent Access: falseCentral Venous Catheter (CVC) Chest (Right) ArterialAV Fistula Forearm (Left) Venous BP Standing (Pre-Dialysis) 138/83 mmHg BP Standing (P ost-Dialysis) 140/77 mmHg Sitting Heart Rate Pre-Dialysis 79 BPM Sitting Heart Rate Post-Dialysis 65 BPM Standing Heart Rate Pre-Dialysis 76 BPM Standing Heart Rate Post-Dialysis 81 BPM Temperature Pre-Dialysis 98.5 degF Temperature Post -Dialysis 97.9 degF March 08, 2024 In-Center Hemodialysis Treatment [id number]:59:16.000Z 0169-35-04L97:30:20.000Z BP Sitting (Pre-Dialysis) 163/86 mmHg BP Sitting (Post-Dialysis) 128/80 mmHg Concurrent Access: falseCentral Venous Catheter (CVC) Chest (Right) ArterialAV Fistula Forearm (Left) Venous BP Standing (Pre-Dialysis) 173/100 mmHg BP Standing (P ost-Dialysis) 149/82 mmHg Sitting Heart Rate Pre-Dialysis 72 BPM Sitting Heart Rate Post-Dialysis 69 BPM Standing Heart Rate Pre-Dialysis 70 BPM Standing Heart Rate Post-Dialysis 102 BPM Temperature Pre-Dialysis 98.5 degF Temperature Post -Dialysis 97.9 degF March 05, 2024 In-Center Hemodialysis Treatment 7849-81-74Q19:00:27.000Z 7957-82-22D29:24:30.000Z BP Sitting (Pre-Dialysis) 134/78 mmHg BP Sitting (Post-Dialysis) 141/75 mmHg Concurrent Access: falseCentral Venous Catheter (CVC) Chest (Right) ArterialAV Fistula Forearm (Left) Venous BP Standing (Pre-Dialysis) 146/85 mmHg BP Standing (P ost-Dialysis) 145/79 mmHg Sitting Heart Rate Pre-Dialysis 70 BPM Sitting Heart Rate Post-Dialysis 67 BPM Standing Heart Rate Pre-Dialysis 76 BPM Standing Heart Rate Post-Dialysis 72 BPM Temperature Pre-Dialysis 98.1 degF Temperature Post -Dialysis 97.9 degF March 03, 2024 In-Center Hemodialysis Treatment [id number]:50:53.000Z 3707-53-23W08:20:56.000Z BP Sitting (Pre-Dialysis) 160/93 mmHg BP Sitting (Post-Dialysis) 154/85 mmHg Concurrent Access: falseCentral Venous Catheter (CVC) Chest (Right) ArterialAV Fistula Forearm (Left) Venous BP Standing (Pre-Dialysis) 161/97 mmHg BP Standing (P ost-Dialysis) 156/92 mmHg Sitting Heart Rate Pre-Dialysis 76 BPM Sitting Heart Rate Post-Dialysis 67 BPM Standing Heart Rate Pre-Dialysis 76 BPM Standing Heart Rate Post-Dialysis 77 BPM Temperature Pre-Dialysis 98.6 degF Temperature Post -Dialysis 97.9 degF March 01, 2024 In-Center Hemodialysis Treatment [id number]:58:20.000Z 6188-13-14H96:31:24.000Z BP Sitting (Pre-Dialysis) 170/89 mmHg BP Sitting (Post-Dialysis) 155/92 mmHg Concurrent Access: falseCentral Venous Catheter (CVC) Chest (Right) ArterialAV Fistula Forearm (Left) Venous BP Standing (Pre-Dialysis) 165/101 mmHg BP Standing (P ost-Dialysis) 135/78 mmHg Sitting Heart Rate Pre-Dialysis 75 BPM Sitting Heart Rate Post-Dialysis 73 BPM Standing Heart Rate Pre-Dialysis 78 BPM Standing Heart Rate Post-Dialysis 88 BPM Temperature Pre-Dialysis 97.9 degF Temperature Post -Dialysis 98.4 degF February 27, 2024 In-Center Hemodialysis Treatment 9183-30-74R45:53:28.000Z [id number]:27:33.000Z BP Sitting (Pre-Dialysis) 145/88 mmHg BP Sitting (Post-Dialysis) 152/83 mmHg Concurrent Access: falseCentral Venous Catheter (CVC) Chest (Right) Arterial BP Standing (Pre-Dialysis) 145/88 mmHg BP Standing (P ost-Dialysis) 146/87 mmHg Sitting Heart Rate Pre-Dialysis 83 BPM Sitting Heart Rate Post-Dialysis 68 BPM Standing Heart Rate Pre-Dialysis 83 BPM Standing Heart Rate Post-Dialysis 83 BPM Temperature Pre-Dialysis 98.1 degF Temperature Post -Dialysis 98.3 degF February 25, 2024 In-Center Hemodialysis Treatment 5930-81-50L45:50:56.000Z 5419-82-24T55:27:00.000Z BP Sitting (Pre-Dialysis) 140/78 mmHg BP Sitting (Post-Dialysis) 158/77 mmHg Concurrent Access: falseCentral Venous Catheter (CVC) Chest (Right) Arterial BP Standing (Pre-Dialysis) 154/94 mmHg BP Standing (P ost-Dialysis) 140/82 mmHg Sitting Heart Rate Pre-Dialysis 75 BPM Sitting Heart Rate Post-Dialysis 66 BPM Standing Heart Rate Pre-Dialysis 78 BPM Standing Heart Rate Post-Dialysis 79 BPM Temperature Pre-Dialysis 97.9 degF Temperature Post -Dialysis 98.6 degF February 23, 2024 In-Center Hemodialysis Treatment 1103-08-42Y22:18:23.000Z 4422-29-45O07:58:26.000Z BP Sitting (Pre-Dialysis) 185/101 mmHg BP Sitting (Post-Dialysis) 153/81 mmHg Concurrent Access: falseCentral Venous Catheter (CVC) Chest (Right) ArterialCentral Venous Catheter (CVC) Chest (Right) Venous BP Standing (Pre-Dialysis) 189/99 mmHg BP Standing (P ost-Dialysis) 146/81 mmHg Sitting Heart Rate Pre-Dialysis 76 BPM Sitting Heart Rate Post-Dialysis 68 BPM Standing Heart Rate Pre-Dialysis 82 BPM Standing Heart Rate Post-Dialysis 69 BPM Temperature Pre-Dialysis 97.9 degF Temperature Post -Dialysis 98 degF February 20, 2024 In-Center Hemodialysis Treatment 0716-55-64H50:52:33.000Z 2597-45-58N75:23:37.000Z BP Sitting (Pre-Dialysis) 158/82 mmHg BP Sitting (Post-Dialysis) 151/89 mmHg Concurrent Access: falseCentral Venous Catheter (CVC) Chest (Right) ArterialAV Fistula Upper Arm (Left) Venous BP Standing (Pre-Dialysis) 177/91 mmHg BP Standing (P ost-Dialysis) 145/83 mmHg Sitting Heart Rate Pre-Dialysis 83 BPM Sitting Heart Rate Post-Dialysis 70 BPM Standing Heart Rate Pre-Dialysis 81 BPM Standing Heart Rate Post-Dialysis 80 BPM Temperature Pre-Dialysis 98.7 degF Temperature Post -Dialysis 97.4 degF February 18, 2024 In-Center Hemodialysis Treatment 5963-62-85C95:55:00.000Z 9038-98-40S24:27:03.000Z BP Sitting (Pre-Dialysis) 155/83 mmHg BP Sitting (Post-Dialysis) 144/86 mmHg Concurrent Access: falseCentral Venous Catheter (CVC) Chest (Right) ArterialAV Fistula Upper Arm (Left) Venous BP Standing (Pre-Dialysis) 140/94 mmHg BP Standing (P ost-Dialysis) 130/79 mmHg Sitting Heart Rate Pre-Dialysis 77 BPM Sitting Heart Rate Post-Dialysis 72 BPM Standing Heart Rate Pre-Dialysis 78 BPM Standing Heart Rate Post-Dialysis 88 BPM Temperature Pre-Dialysis 98.1 degF Temperature Post -Dialysis 97.9 degF February 16, 2024 In-Center Hemodialysis Treatment 2690-74-57S11:04:26.000Z [id number]:30:29.000Z BP Sitting (Pre-Dialysis) 162/80 mmHg BP Sitting (Post-Dialysis) 189/81 mmHg Concurrent Access: falseCentral Venous Catheter (CVC) Chest (Right) ArterialAV Fistula Upper Arm (Left) Venous BP Standing (Pre-Dialysis) 183/100 mmHg BP Standing (P ost-Dialysis) 156/90 mmHg Sitting Heart Rate Pre-Dialysis 72 BPM Sitting Heart Rate Post-Dialysis 60 BPM Standing Heart Rate Pre-Dialysis 73 BPM Standing Heart Rate Post-Dialysis 73 BPM Temperature Pre-Dialysis 98 degF Temperature Post -Dialysis 98.1 degF February 13, 2024 In-Center Hemodialysis Treatment 2077-18-57V50:02:35.000Z 3595-06-44S88:18:39.000Z BP Sitting (Pre-Dialysis) 146/59 mmHg BP Sitting (Post-Dialysis) 193/97 mmHg Concurrent Access: falseCentral Venous Catheter (CVC) Chest (Right) ArterialAV Fistula Upper Arm (Left) Venous BP Standing (Pre-Dialysis) 163/90 mmHg BP Standing (P ost-Dialysis) 175/92 mmHg Sitting Heart Rate Pre-Dialysis 66 BPM Sitting Heart Rate Post-Dialysis 60 BPM Standing Heart Rate Pre-Dialysis 73 BPM Standing Heart Rate Post-Dialysis 72 BPM Temperature Pre-Dialysis 98.4 degF Temperature Post -Dialysis 98.1 degF February 12, 2024 In-Center Hemodialysis Treatment 2351-47-13H56:58:19.000Z 0655-88-81Q36:14:22.000Z BP Sitting (Pre-Dialysis) 163/91 mmHg BP Sitting (Post-Dialysis) 169/84 mmHg Concurrent Access: falseCentral Venous Catheter (CVC) Chest (Right) ArterialAV Fistula Upper Arm (Left) Venous BP Standing (Pre-Dialysis) 176/100 mmHg BP Standing (P ost-Dialysis) 169/84 mmHg Sitting Heart Rate Pre-Dialysis 70 BPM Sitting Heart Rate Post-Dialysis 65 BPM Standing Heart Rate Pre-Dialysis 69 BPM Standing Heart Rate Post-Dialysis 65 BPM Temperature Pre-Dialysis 98.2 degF Temperature Post -Dialysis 97.5 degF February 09, 2024 In-Center Hemodialysis Treatment 8289-63-42F46:00:29.000Z 4281-70-92H41:41:33.000Z BP Sitting (Pre-Dialysis) 159/92 mmHg BP Sitting (Post-Dialysis) 169/80 mmHg Concurrent Access: falseCentral Venous Catheter (CVC) Chest (Right) ArterialAV Fistula Upper Arm (Left) Venous BP Standing (Pre-Dialysis) 189/101 mmHg BP Standing (P ost-Dialysis) 143/85 mmHg Sitting Heart Rate Pre-Dialysis 77 BPM Sitting Heart Rate Post-Dialysis 63 BPM Standing Heart Rate Pre-Dialysis 75 BPM Standing Heart Rate Post-Dialysis 66 BPM Temperature Pre-Dialysis 98.3 degF Temperature Post -Dialysis 97.5 degF February 06, 2024 In-Center Hemodialysis Treatment [id number]:54:37.000Z 4956-24-27J13:28:38.000Z BP Sitting (Pre-Dialysis) 151/77 mmHg BP Sitting (Post-Dialysis) 156/83 mmHg Concurrent Access: falseCentral Venous Catheter (CVC) Chest (Right) Arterial BP Standing (Pre-Dialysis) 144/93 mmHg BP Standing (P ost-Dialysis) 140/82 mmHg Sitting Heart Rate Pre-Dialysis 81 BPM Sitting Heart Rate Post-Dialysis 81 BPM Standing Heart Rate Pre-Dialysis 83 BPM Standing Heart Rate Post-Dialysis 86 BPM Temperature Pre-Dialysis 97.7 degF Temperature Post -Dialysis 97.6 degF February 04, 2024 In-Center Hemodialysis Treatment 2430-37-32F44:03:03.000Z 4003-73-09R79:11:06.000Z BP Sitting (Pre-Dialysis) 149/84 mmHg BP Sitting (Post-Dialysis) 138/92 mmHg Concurrent Access: falseCentral Venous Catheter (CVC) Chest (Right) Arterial BP Standing (Pre-Dialysis) 157/95 mmHg BP Standing (P ost-Dialysis) 130/80 mmHg Sitting Heart Rate Pre-Dialysis 80 BPM Sitting Heart Rate Post-Dialysis 73 BPM Standing Heart Rate Pre-Dialysis 78 BPM Standing Heart Rate Post-Dialysis 78 BPM Temperature Pre-Dialysis 98.3 degF Temperature Post -Dialysis 98.1 degF February 02, 2024 In-Center Hemodialysis Treatment 0358-43-03T55:10:28.000Z 7490-67-37R29:46:32.000Z BP Sitting (Pre-Dialysis) 129/74 mmHg BP Sitting (Post-Dialysis) 167/85 mmHg Concurrent Access: falseCentral Venous Catheter (CVC) Chest (Right) Arterial BP Standing (Pre-Dialysis) 128/90 mmHg BP Standing (P ost-Dialysis) 154/83 mmHg Sitting Heart Rate Pre-Dialysis 75 BPM Sitting Heart Rate Post-Dialysis 66 BPM Standing Heart Rate Pre-Dialysis 77 BPM Standing Heart Rate Post-Dialysis 72 BPM Temperature Pre-Dialysis 98.2 degF Temperature Post -Dialysis 98 degF January 30, 2024 In-Center Hemodialysis Treatment 2407-83-30C12:00:00.000Z 6633-07-26F54:34:01.000Z BP Sitting (Pre-Dialysis) 144/89 mmHg BP Sitting (Post-Dialysis) 139/80 mmHg Concurrent Access: falseCentral Venous Catheter (CVC) Chest (Right) Arterial BP Standing (Pre-Dialysis) 157/96 mmHg BP Standing (P ost-Dialysis) 127/70 mmHg Sitting Heart Rate Pre-Dialysis 73 BPM Sitting Heart Rate Post-Dialysis 76 BPM Standing Heart Rate Pre-Dialysis 78 BPM Standing Heart Rate Post-Dialysis 86 BPM Temperature Pre-Dialysis 98.2 degF Temperature Post -Dialysis 97.6 degF January 28, 2024 In-Center Hemodialysis Treatment [id number]:45:24.000Z 5783-77-89L89:16:28.000Z BP Sitting (Pre-Dialysis) 138/80 mmHg BP Sitting (Post-Dialysis) 155/96 mmHg Concurrent Access: falseCentral Venous Catheter (CVC) Chest (Right) ArterialCentral Venous Catheter (CVC) Chest (Right) Venous BP Standing (Pre-Dialysis) 164/94 mmHg BP Standing (P ost-Dialysis) 119/60 mmHg Sitting Heart Rate Pre-Dialysis 68 BPM Sitting Heart Rate Post-Dialysis 73 BPM Standing Heart Rate Pre-Dialysis 78 BPM Standing Heart Rate Post-Dialysis 95 BPM Temperature Pre-Dialysis 98.2 degF Temperature Post -Dialysis 97.7 degF January 26, 2024 In-Center Hemodialysis Treatment 6311-66-51Y21:52:52.000Z 8269-30-95T81:24:55.000Z BP Sitting (Pre-Dialysis) 164/92 mmHg BP Sitting (Post-Dialysis) 146/89 mmHg Concurrent Access: falseCentral Venous Catheter (CVC) Chest (Right) ArterialCentral Venous Catheter (CVC) Chest (Right) Venous BP Standing (Pre-Dialysis) 175/103 mmHg BP Standing (P ost-Dialysis) 143/96 mmHg Sitting Heart Rate Pre-Dialysis 69 BPM Sitting Heart Rate Post-Dialysis 73 BPM Standing Heart Rate Pre-Dialysis 69 BPM Standing Heart Rate Post-Dialysis 92 BPM Temperature Pre-Dialysis 97.3 degF Temperature Post -Dialysis 97.5 degF January 23, 2024 In-Center Hemodialysis Treatment 9562-42-77Y14:45:44.000Z 9949-97-48C75:18:48.000Z BP Sitting (Pre-Dialysis) 157/83 mmHg BP Sitting (Post-Dialysis) 147/76 mmHg Concurrent Access: falseCentral Venous Catheter (CVC) Chest (Right) ArterialCentral Venous Catheter (CVC) Chest (Right) Venous BP Standing (Pre-Dialysis) 151/95 mmHg BP Standing (P ost-Dialysis) 132/66 mmHg Sitting Heart Rate Pre-Dialysis 59 BPM Sitting Heart Rate Post-Dialysis 82 BPM Standing Heart Rate Pre-Dialysis 63 BPM Standing Heart Rate Post-Dialysis 72 BPM Temperature Pre-Dialysis 97.4 degF Temperature Post -Dialysis 97.4 degF January 21, 2024 In-Center Hemodialysis Treatment 8029-05-39C58:25:52.000Z [id number]:40:53.000Z BP Sitting (Pre-Dialysis) 128/83 mmHg BP Sitting (Post-Dialysis) 133/76 mmHg Concurrent Access: falseCentral Venous Catheter (CVC) Chest (Right) Arterial BP Standing (Pre-Dialysis) 123/86 mmHg BP Standing (P ost-Dialysis) 148/91 mmHg Sitting Heart Rate Pre-Dialysis 66 BPM Sitting Heart Rate Post-Dialysis 65 BPM Standing Heart Rate Pre-Dialysis 78 BPM Standing Heart Rate Post-Dialysis 71 BPM Temperature Pre-Dialysis 98.3 degF Temperature Post -Dialysis 97.4 degF January 19, 2024 In-Center Hemodialysis Treatment [id number]:44:58.000Z 1569-25-91R16:21:02.000Z BP Sitting (Pre-Dialysis) 154/86 mmHg BP Sitting (Post-Dialysis) 147/92 mmHg Concurrent Access: falseCentral Venous Catheter (CVC) Chest (Right) Arterial BP Standing (Pre-Dialysis) 156/96 mmHg BP Standing (P ost-Dialysis) 122/79 mmHg Sitting Heart Rate Pre-Dialysis 69 BPM Sitting Heart Rate Post-Dialysis 70 BPM Standing Heart Rate Pre-Dialysis 78 BPM Standing Heart Rate Post-Dialysis 95 BPM Temperature Pre-Dialysis 98 degF Temperature Post -Dialysis 97.4 degF January 16, 2024 In-Center Hemodialysis Treatment 7835-05-76V95:46:38.000Z 9126-35-66C15:18:42.000Z BP Sitting (Pre-Dialysis) 145/83 mmHg BP Sitting (Post-Dialysis) 126/79 mmHg Concurrent Access: falseCentral Venous Catheter (CVC) Chest (Right) Arterial BP Standing (Pre-Dialysis) 153/96 mmHg BP Standing (P ost-Dialysis) 118/78 mmHg Sitting Heart Rate Pre-Dialysis 78 BPM Sitting Heart Rate Post-Dialysis 80 BPM Standing Heart Rate Pre-Dialysis 88 BPM Standing Heart Rate Post-Dialysis 88 BPM Temperature Pre-Dialysis 98.2 degF Temperature Post -Dialysis 98 degF [facility] [id number]:47:45.000Z 1888-53-88I84:21:49.000Z BP Sitting (Pre-Dialysis) 155/88 mmHg BP Sitting (Post-Dialysis) 111/73 mmHg Concurrent Access: falseCentral Venous Catheter (CVC) Chest (Right) Arterial BP Standing (Pre-Dialysis) 148/91 mmHg BP Standing (P ost-Dialysis) 103/79 mmHg Sitting Heart Rate Pre-Dialysis 66 BPM Sitting Heart Rate Post-Dialysis 64 BPM Standing Heart Rate Pre-Dialysis 76 BPM Standing Heart Rate Post-Dialysis 92 BPM Temperature Pre-Dialysis 98.2 degF Temperature Post -Dialysis 98 degF [facility] 3416-21-95G19:51:00.000Z 9662-06-84C53:20:56.000Z BP Sitting (Pre-Dialysis) 147/84 mmHg BP Sitting (Post-Dialysis) 130/81 mmHg Concurrent Access: falseCentral Venous Catheter (CVC) Chest (Right) Arterial BP Standing (Pre-Dialysis) 153/91 mmHg BP Standing (P ost-Dialysis) 135/86 mmHg Sitting Heart Rate Pre-Dialysis 68 BPM Sitting Heart Rate Post-Dialysis 66 BPM Standing Heart Rate Pre-Dialysis 74 BPM Standing Heart Rate Post-Dialysis 76 BPM Temperature Pre-Dialysis 98.3 degF Temperature Post -Dialysis 97.3 degF [facility] 0350-32-90A84:40:16.000Z 1648-90-99S36:24:20.000Z BP Sitting (Pre-Dialysis) 149/85 mmHg BP Sitting (Post-Dialysis) 157/82 mmHg Concurrent Access: falseCentral Venous Catheter (CVC) Chest (Right) Arterial BP Standing (Pre-Dialysis) 154/95 mmHg BP Standing (P ost-Dialysis) 137/87 mmHg Sitting Heart Rate Pre-Dialysis 58 BPM Sitting Heart Rate Post-Dialysis 60 BPM Standing Heart Rate Pre-Dialysis 65 BPM Standing Heart Rate Post-Dialysis 76 BPM Temperature Pre-Dialysis 97.6 degF Temperature Post -Dialysis 98.2 degF January 07, 2024 In-Center Hemodialysis Treatment 1672-28-52W82:59:17.000Z 3735-63-92U47:36:20.000Z BP Sitting (Pre-Dialysis) 142/86 mmHg BP Sitting (Post-Dialysis) 127/77 mmHg Concurrent Access: falseCentral Venous Catheter (CVC) Chest (Right) Arterial BP Standing (Pre-Dialysis) 143/91 mmHg BP Standing (P ost-Dialysis) 131/74 mmHg Sitting Heart Rate Pre-Dialysis 60 BPM Sitting Heart Rate Post-Dialysis 67 BPM Standing Heart Rate Pre-Dialysis 67 BPM Standing Heart Rate Post-Dialysis 75 BPM Temperature Pre-Dialysis 98.3 degF Temperature Post -Dialysis 97.6 degF January 05, 2024 In-Center Hemodialysis Treatment 6477-14-68H24:48:16.000Z 2260-72-14P04:23:19.000Z BP Sitting (Pre-Dialysis) 153/87 mmHg BP Sitting (Post-Dialysis) 142/78 mmHg Concurrent Access: falseCentral Venous Catheter (CVC) Chest (Right) Arterial BP Standing (Pre-Dialysis) 144/66 mmHg BP Standing (P ost-Dialysis) 106/78 mmHg Sitting Heart Rate Pre-Dialysis 60 BPM Sitting Heart Rate Post-Dialysis 63 BPM Standing Heart Rate Pre-Dialysis 68 BPM Standing Heart Rate Post-Dialysis 72 BPM Temperature Pre-Dialysis 97.8 degF Temperature Post -Dialysis 98.3 degF January 02, 2024 In-Center Hemodialysis Treatment [id number]:43:16.000Z 7517-36-23U56:18:20.000Z BP Sitting (Pre-Dialysis) 136/79 mmHg BP Sitting (Post-Dialysis) 139/76 mmHg Concurrent Access: falseCentral Venous Catheter (CVC) Chest (Right) Arterial BP Standing (Pre-Dialysis) 149/91 mmHg BP Standing (P ost-Dialysis) 136/77 mmHg Sitting Heart Rate Pre-Dialysis 62 BPM Sitting Heart Rate Post-Dialysis 58 BPM Standing Heart Rate Pre-Dialysis 64 BPM Standing Heart Rate Post-Dialysis 69 BPM Temperature Pre-Dialysis 97.8 degF Temperature Post -Dialysis 97.4 degF December 31, 2023 In-Center Hemodialysis Treatment [id number]:42:16.000Z 1570-59-51E03:19:20.000Z BP Sitting (Pre-Dialysis) 151/85 mmHg BP Sitting (Post-Dialysis) 138/83 mmHg Concurrent Access: falseCentral Venous Catheter (CVC) Chest (Right) Arterial BP Standing (Pre-Dialysis) 148/84 mmHg BP Standing (P ost-Dialysis) 123/79 mmHg Sitting Heart Rate Pre-Dialysis 66 BPM Sitting Heart Rate Post-Dialysis 55 BPM Standing Heart Rate Pre-Dialysis 69 BPM Standing Heart Rate Post-Dialysis 69 BPM Temperature Pre-Dialysis 98 degF Temperature Post -Dialysis 98.1 degF December 29, 2023 In-Center Hemodialysis Treatment [id number]:47:16.000Z 0330-54-30Q30:18:20.000Z BP Sitting (Pre-Dialysis) 170/97 mmHg BP Sitting (Post-Dialysis) 135/71 mmHg Concurrent Access: falseCentral Venous Catheter (CVC) Chest (Right) ArterialCentral Venous Catheter (CVC) Chest (Right) Venous BP Standing (Pre-Dialysis) 174/101 mmHg BP Standing (P ost-Dialysis) 130/64 mmHg Sitting Heart Rate Pre-Dialysis 69 BPM Sitting Heart Rate Post-Dialysis 72 BPM Standing Heart Rate Pre-Dialysis 75 BPM Standing Heart Rate Post-Dialysis 88 BPM Temperature Pre-Dialysis 97.5 degF Temperature Post -Dialysis 97.5 degF December 24, 2023 In-Center Hemodialysis Treatment 7515-01-23X14:20:15.000Z 0560-52-50A22:00:20.000Z BP Sitting (Pre-Dialysis) 135/74 mmHg BP Sitting (Post-Dialysis) 143/79 mmHg Concurrent Access: falseCentral Venous Catheter (CVC) Chest (Right) Arterial BP Standing (Pre-Dialysis) 138/75 mmHg BP Standing (P ost-Dialysis) 122/80 mmHg Sitting Heart Rate Pre-Dialysis 63 BPM Sitting Heart Rate Post-Dialysis 53 BPM Standing Heart Rate Pre-Dialysis 70 BPM Standing Heart Rate Post-Dialysis 70 BPM Temperature Pre-Dialysis 98 degF Temperature Post -Dialysis 97.7 degF December 22, 2023 In-Center Hemodialysis Treatment [id number]:27:45.000Z 6075-95-69W24:04:49.000Z BP Sitting (Pre-Dialysis) 151/84 mmHg BP Sitting (Post-Dialysis) 154/94 mmHg Concurrent Access: falseCentral Venous Catheter (CVC) Chest (Right) Arterial BP Standing (Pre-Dialysis) 149/91 mmHg BP Standing (P ost-Dialysis) 135/90 mmHg Sitting Heart Rate Pre-Dialysis 75 BPM Sitting Heart Rate Post-Dialysis 66 BPM Standing Heart Rate Pre-Dialysis 81 BPM Standing Heart Rate Post-Dialysis 81 BPM Temperature Pre-Dialysis 97.4 degF Temperature Post -Dialysis 97.9 degF December 20, 2023 In-Center Hemodialysis Treatment [id number]:35:11.000Z 5932-32-95Q43:42:11.000Z BP Sitting (Pre-Dialysis) 163/115 mmHg BP Sitting (Post-Dialysis) 157/87 mmHg Concurrent Access: falseCentral Venous Catheter (CVC) Chest (Right) Arterial BP Standing (Pre-Dialysis) 202/116 mmHg BP Standing (P ost-Dialysis) 148/102 mmHg Sitting Heart Rate Pre-Dialysis 65 BPM Sitting Heart Rate Post-Dialysis 58 BPM Standing Heart Rate Pre-Dialysis 73 BPM Standing Heart Rate Post-Dialysis 79 BPM Temperature Pre-Dialysis 97.9 degF Temperature Post -Dialysis 97.6 degF December 19, 2023 In-Center Hemodialysis Treatment [id number]:29:18.000Z [id number]:12:19.000Z BP Sitting (Pre-Dialysis) 132/80 mmHg BP Sitting (Post-Dialysis) 130/71 mmHg Concurrent Access: falseCentral Venous Catheter (CVC) Chest (Right) Arterial BP Standing (Pre-Dialysis) 137/77 mmHg Sitti ng Heart Rate Post-Dialysis 65 BPM Sitting Heart Rate Pre-Dialysis 70 BPM Temperatu re Post-Dialysis 96.4 degF Standing Heart Rate Pre-Dialysis 84 BPM Temperature Pre-Dialysis 97.2 degF December 17, 2023 In-Center Hemodialysis Treatment [id number]:32:29.000Z [id number]:02:34.000Z BP Sitting (Pre-Dialysis) 163/85 mmHg BP Sitting (Post-Dialysis) 188/90 mmHg Concurrent Access: falseCentral Venous Catheter (CVC) Chest (Right) Arterial BP Standing (Pre-Dialysis) 144/83 mmHg BP Standing (P ost-Dialysis) 145/86 mmHg Sitting Heart Rate Pre-Dialysis 76 BPM Sitting Heart Rate Post-Dialysis 70 BPM Standing Heart Rate Pre-Dialysis 83 BPM Standing Heart Rate Post-Dialysis 86 BPM Temperature Pre-Dialysis 98 degF Temperature Post -Dialysis 97.4 degF December 15, 2023 In-Center Hemodialysis Treatment [id number]:38:10.000Z [id number]:10:14.000Z BP Sitting (Pre-Dialysis) 160/89 mmHg BP Sitting (Post-Dialysis) 137/83 mmHg Concurrent Access: falseCentral Venous Catheter (CVC) Chest (Right) Arterial BP Standing (Pre-Dialysis) 167/105 mmHg BP Standing (P ost-Dialysis) 128/80 mmHg Sitting Heart Rate Pre-Dialysis 72 BPM Sitting Heart Rate Post-Dialysis 94 BPM Standing Heart Rate Pre-Dialysis 84 BPM Standing Heart Rate Post-Dialysis 94 BPM Temperature Pre-Dialysis 97.7 degF Temperature Post -Dialysis 98 degF December 12, 2023 In-Center Hemodialysis Treatment [id number]:39:30.000Z [id number]:11:33.000Z BP Sitting (Pre-Dialysis) 155/89 mmHg BP Sitting (Post-Dialysis) 129/79 mmHg Concurrent Access: falseCentral Venous Catheter (CVC) Chest (Right) Arterial BP Standing (Pre-Dialysis) 156/83 mmHg BP Standing (P ost-Dialysis) 128/73 mmHg Sitting Heart Rate Pre-Dialysis 72 BPM Sitting Heart Rate Post-Dialysis 77 BPM Standing Heart Rate Pre-Dialysis 79 BPM Standing Heart Rate Post-Dialysis 89 BPM Temperature Pre-Dialysis 98.1 degF Temperature Post -Dialysis 98 degF December 10, 2023 In-Center Hemodialysis Treatment [id number]:40:00.000Z 1513-10-90V97:16:34.000Z BP Sitting (Pre-Dialysis) 164/134 mmHg BP Sitting (Post-Dialysis) 158/85 mmHg Concurrent Access: falseCentral Venous Catheter (CVC) Chest (Right) Arterial BP Standing (Pre-Dialysis) 149/82 mmHg BP Standing (P ost-Dialysis) 134/72 mmHg Sitting Heart Rate Pre-Dialysis 93 BPM Sitting Heart Rate Post-Dialysis 62 BPM Standing Heart Rate Pre-Dialysis 58 BPM Standing Heart Rate Post-Dialysis 72 BPM Temperature Pre-Dialysis 97.6 degF Temperature Post -Dialysis 97.7 degF December 08, 2023 In-Center Hemodialysis Treatment [id number]:00:11.000Z 8747-52-14U73:33:16.000Z BP Sitting (Pre-Dialysis) 163/88 mmHg BP Sitting (Post-Dialysis) 124/82 mmHg Concurrent Access: falseCentral Venous Catheter (CVC) Chest (Right) Arterial BP Standing (Pre-Dialysis) 154/92 mmHg BP Standing (P ost-Dialysis) 131/83 mmHg Sitting Heart Rate Pre-Dialysis 64 BPM Sitting Heart Rate Post-Dialysis 65 BPM Standing Heart Rate Pre-Dialysis 66 BPM Standing Heart Rate Post-Dialysis 76 BPM Temperature Pre-Dialysis 98.1 degF Temperature Post -Dialysis 98 degF December 05, 2023 In-Center Hemodialysis Treatment [id number]:48:16.000Z 8053-32-38T40:21:19.000Z BP Sitting (Pre-Dialysis) 136/77 mmHg BP Sitting (Post-Dialysis) 145/78 mmHg Concurrent Access: falseCentral Venous Catheter (CVC) Chest (Right) Arterial BP Standing (Pre-Dialysis) 141/85 mmHg BP Standing (P ost-Dialysis) 132/75 mmHg Sitting Heart Rate Pre-Dialysis 66 BPM Sitting Heart Rate Post-Dialysis 56 BPM Standing Heart Rate Pre-Dialysis 69 BPM Standing Heart Rate Post-Dialysis 71 BPM Temperature Pre-Dialysis 97.3 degF Temperature Post -Dialysis 98.2 degF December 03, 2023 In-Center Hemodialysis Treatment [id number]:48:12.000Z 1470-31-86F90:20:16.000Z BP Sitting (Pre-Dialysis) 160/85 mmHg BP Sitting (Post-Dialysis) 128/77 mmHg Concurrent Access: falseCentral Venous Catheter (CVC) Chest (Right) Arterial BP Standing (Pre-Dialysis) 148/94 mmHg BP Standing (P ost-Dialysis) 116/75 mmHg Sitting Heart Rate Pre-Dialysis 65 BPM Sitting Heart Rate Post-Dialysis 57 BPM Standing Heart Rate Pre-Dialysis 69 BPM Standing Heart Rate Post-Dialysis 82 BPM Temperature Pre-Dialysis 97.1 degF Temperature Post -Dialysis 97.5 degF December 01, 2023 In-Center Hemodialysis Treatment [id number]:52:28.000Z 2001-68-92L18:24:33.000Z BP Sitting (Pre-Dialysis) 143/84 mmHg BP Sitting (Post-Dialysis) 144/85 mmHg Concurrent Access: falseCentral Venous Catheter (CVC) Chest (Right) Arterial BP Standing (Pre-Dialysis) 144/86 mmHg BP Standing (P ost-Dialysis) 97/78 mmHg Sitting Heart Rate Pre-Dialysis 64 BPM Sitting Heart Rate Post-Dialysis 64 BPM Standing Heart Rate Pre-Dialysis 84 BPM Standing Heart Rate Post-Dialysis 67 BPM Temperature Pre-Dialysis 97.6 degF Temperature Post -Dialysis 98.4 degF November 28, 2023 In-Center Hemodialysis Treatment 6318-97-60Z02:01:11.000Z 5029-62-51E94:39:15.000Z BP Sitting (Pre-Dialysis) 166/92 mmHg BP Sitting (Post-Dialysis) 127/75 mmHg Concurrent Access: falseCentral Venous Catheter (CVC) Chest (Right) Arterial BP Standing (Pre-Dialysis) 159/97 mmHg BP Standing (P ost-Dialysis) 125/78 mmHg Sitting Heart Rate Pre-Dialysis 72 BPM Sitting Heart Rate Post-Dialysis 80 BPM Standing Heart Rate Pre-Dialysis 80 BPM Standing Heart Rate Post-Dialysis 91 BPM Temperature Pre-Dialysis 98.2 degF Temperature Post -Dialysis 98.2 degF November 26, 2023 In-Center Hemodialysis Treatment [id number]:39:11.000Z 3964-30-42G01:19:15.000Z BP Sitting (Pre-Dialysis) 139/83 mmHg BP Sitting (Post-Dialysis) 128/73 mmHg Concurrent Access: falseCentral Venous Catheter (CVC) Chest (Right) Arterial BP Standing (Pre-Dialysis) 146/79 mmHg BP Standing (P ost-Dialysis) 142/68 mmHg Sitting Heart Rate Pre-Dialysis 75 BPM Sitting Heart Rate Post-Dialysis 66 BPM Standing Heart Rate Pre-Dialysis 85 BPM Standing Heart Rate Post-Dialysis 71 BPM Temperature Pre-Dialysis 97.5 degF Temperature Post -Dialysis 98 degF November 24, 2023 In-Center Hemodialysis Treatment 0798-16-12Y36:39:42.000Z 8600-37-40U19:25:46.000Z BP Sitting (Pre-Dialysis) 137/75 mmHg BP Sitting (Post-Dialysis) 137/73 mmHg Concurrent Access: falseCentral Venous Catheter (CVC) Chest (Right) Arterial BP Standing (Pre-Dialysis) 141/82 mmHg BP Standing (P ost-Dialysis) 126/87 mmHg Sitting Heart Rate Pre-Dialysis 63 BPM Sitting Heart Rate Post-Dialysis 58 BPM Standing Heart Rate Pre-Dialysis 76 BPM Standing Heart Rate Post-Dialysis 84 BPM Temperature Pre-Dialysis 97.6 degF Temperature Post -Dialysis 97.7 degF November 21, 2023 In-Center Hemodialysis Treatment 5078-60-38P00:22:57.000Z 7936-99-17G87:33:01.000Z BP Sitting (Pre-Dialysis) 130/71 mmHg BP Sitting (Post-Dialysis) 137/80 mmHg Concurrent Access: falseCentral Venous Catheter (CVC) Chest (Right) Arterial BP Standing (Pre-Dialysis) 132/77 mmHg BP Standing (P ost-Dialysis) 112/66 mmHg Sitting Heart Rate Pre-Dialysis 73 BPM Sitting Heart Rate Post-Dialysis 61 BPM Standing Heart Rate Pre-Dialysis 87 BPM Standing Heart Rate Post-Dialysis 82 BPM Temperature Pre-Dialysis 97.8 degF Temperature Post -Dialysis 97.3 degF November 19, 2023 In-Center Hemodialysis Treatment [id number]:10:39.000Z 3872-26-72T38:44:44.000Z BP Sitting (Pre-Dialysis) 142/80 mmHg BP Sitting (Post-Dialysis) 131/77 mmHg Concurrent Access: falseCentral Venous Catheter (CVC) Chest (Right) Arterial BP Standing (Pre-Dialysis) 135/85 mmHg BP Standing (P ost-Dialysis) 108/60 mmHg Sitting Heart Rate Pre-Dialysis 61 BPM Sitting Heart Rate Post-Dialysis 70 BPM Standing Heart Rate Pre-Dialysis 70 BPM Standing Heart Rate Post-Dialysis 87 BPM Temperature Pre-Dialysis 98.4 degF Temperature Post -Dialysis 97.2 degF November 17, 2023 In-Center Hemodialysis Treatment [id number]:31:07.000Z 3016-55-07S30:01:11.000Z BP Sitting (Pre-Dialysis) 137/77 mmHg BP Sitting (Post-Dialysis) 138/83 mmHg Concurrent Access: falseCentral Venous Catheter (CVC) Chest (Right) Arterial BP Standing (Pre-Dialysis) 143/87 mmHg BP Standing (P ost-Dialysis) 132/84 mmHg Sitting Heart Rate Pre-Dialysis 62 BPM Sitting Heart Rate Post-Dialysis 60 BPM Standing Heart Rate Pre-Dialysis 63 BPM Standing Heart Rate Post-Dialysis 88 BPM Temperature Pre-Dialysis 97.2 degF Temperature Post -Dialysis 97.7 degF November 14, 2023 In-Center Hemodialysis Treatment 9421-16-14V87:39:35.000Z [id number]:07:39.000Z BP Sitting (Pre-Dialysis) 147/82 mmHg BP Sitting (Post-Dialysis) 137/72 mmHg Concurrent Access: falseCentral Venous Catheter (CVC) Chest (Right) Arterial BP Standing (Pre-Dialysis) 142/84 mmHg BP Standing (P ost-Dialysis) 134/62 mmHg Sitting Heart Rate Pre-Dialysis 66 BPM Sitting Heart Rate Post-Dialysis 55 BPM Standing Heart Rate Pre-Dialysis 78 BPM Standing Heart Rate Post-Dialysis 70 BPM Temperature Pre-Dialysis 97.5 degF Temperature Post -Dialysis 97.9 degF November 05, 2023 In-Center Hemodialysis Treatment [id number]:57:35.000Z 0895-70-92V33:30:40.000Z BP Sitting (Pre-Dialysis) 123/74 mmHg BP Sitting (Post-Dialysis) 119/78 mmHg Concurrent Access: falseCentral Venous Catheter (CVC) Chest (Right) Arterial BP Standing (Pre-Dialysis) 131/81 mmHg BP Standing (P ost-Dialysis) 127/54 mmHg Sitting Heart Rate Pre-Dialysis 79 BPM Sitting Heart Rate Post-Dialysis 84 BPM Standing Heart Rate Pre-Dialysis 90 BPM Standing Heart Rate Post-Dialysis 102 BPM Temperature Pre-Dialysis 97.9 degF Temperature Post -Dialysis 98.1 degF November 03, 2023 In-Center Hemodialysis Treatment [id number]:27:40.000Z 5090-00-65A39:55:43.000Z BP Sitting (Pre-Dialysis) 128/72 mmHg BP Sitting (Post-Dialysis) 113/75 mmHg Concurrent Access: falseCentral Venous Catheter (CVC) Chest (Right) Arterial BP Standing (Pre-Dialysis) 126/73 mmHg BP Standing (P ost-Dialysis) 109/73 mmHg Sitting Heart Rate Pre-Dialysis 68 BPM Sitting Heart Rate Post-Dialysis 71 BPM Standing Heart Rate Pre-Dialysis 78 BPM Standing Heart Rate Post-Dialysis 65 BPM Temperature Pre-Dialysis 97 degF Temperature Post -Dialysis 97.5 degF October 31, 2023 In-Center Hemodialysis Treatment [id number]:22:58.000Z 7055-90-55W89:55:02.000Z BP Sitting (Pre-Dialysis) 136/82 mmHg BP Sitting (Post-Dialysis) 128/79 mmHg Concurrent Access: falseCentral Venous Catheter (CVC) Chest (Right) Arterial BP Standing (Pre-Dialysis) 144/84 mmHg BP Standing (P ost-Dialysis) 135/83 mmHg Sitting Heart Rate Pre-Dialysis 73 BPM Sitting Heart Rate Post-Dialysis 75 BPM Standing Heart Rate Pre-Dialysis 71 BPM Standing Heart Rate Post-Dialysis 88 BPM Temperature Pre-Dialysis 97.5 degF Temperature Post -Dialysis 97.5 degF October 29, 2023 In-Center Hemodialysis Treatment 8425-65-07L37:36:59.000Z 4392-72-79V28:35:02.000Z BP Sitting (Pre-Dialysis) 127/78 mmHg BP Sitting (Post-Dialysis) 132/90 mmHg Concurrent Access: falseCentral Venous Catheter (CVC) Chest (Right) Arterial BP Standing (Pre-Dialysis) 140/83 mmHg Sitting Heart Rate Post-Dialysis 72 BPM Sitting Heart Rate Pre-Dialysis 73 BPM Standing Heart Rate Pre-Dialysis 81 BPM Temperature Pre-Dialysis 97.5 degF October 27, 2023 In-Center Hemodialysis Treatment 6275-68-74Y00:07:42.000Z 2736-43-49J29:36:46.000Z BP Sitting (Pre-Dialysis) 146/76 mmHg BP Sitting (Post-Dialysis) 123/79 mmHg Concurrent Access: falseCentral Venous Catheter (CVC) Chest (Right) Arterial BP Standing (Pre-Dialysis) 145/83 mmHg BP Standing (P ost-Dialysis) 125/56 mmHg Sitting Heart Rate Pre-Dialysis 73 BPM Sitting Heart Rate Post-Dialysis 68 BPM Standing Heart Rate Pre-Dialysis 80 BPM Standing Heart Rate Post-Dialysis 78 BPM Temperature Pre-Dialysis 97.1 degF Temperature Post -Dialysis 97.7 degF October 24, 2023 In-Center Hemodialysis Treatment [id number]:08:19.000Z 3945-44-79R54:47:23.000Z BP Sitting (Pre-Dialysis) 145/83 mmHg BP Sitting (Post-Dialysis) 130/80 mmHg Concurrent Access: falseCentral Venous Catheter (CVC) Chest (Right) Arterial BP Standing (Pre-Dialysis) 128/84 mmHg BP Standing (P ost-Dialysis) 125/82 mmHg Sitting Heart Rate Pre-Dialysis 80 BPM Sitting Heart Rate Post-Dialysis 60 BPM Standing Heart Rate Pre-Dialysis 88 BPM Standing Heart Rate Post-Dialysis 70 BPM Temperature Pre-Dialysis 97.7 degF Temperature Post -Dialysis 97 degF October 22, 2023 In-Center Hemodialysis Treatment [id number]:12:47.000Z 2733-78-76E65:20:50.000Z BP Sitting (Pre-Dialysis) 140/78 mmHg BP Sitting (Post-Dialysis) 139/76 mmHg Concurrent Access: falseCentral Venous Catheter (CVC) Chest (Right) Arterial BP Standing (Pre-Dialysis) 127/86 mmHg BP Standing (P ost-Dialysis) 123/69 mmHg Sitting Heart Rate Pre-Dialysis 75 BPM Sitting Heart Rate Post-Dialysis 67 BPM Standing Heart Rate Pre-Dialysis 84 BPM Standing Heart Rate Post-Dialysis 74 BPM Temperature Pre-Dialysis 97.7 degF Temperature Post -Dialysis 97.5 degF October 20, 2023 In-Center Hemodialysis Treatment [id number]:48:19.000Z 7642-50-64Q52:23:23.000Z BP Sitting (Pre-Dialysis) 151/81 mmHg BP Sitting (Post-Dialysis) 110/72 mmHg Concurrent Access: falseCentral Venous Catheter (CVC) Chest (Right) Arterial BP Standing (Pre-Dialysis) 139/82 mmHg BP Standing (P ost-Dialysis) 124/57 mmHg Sitting Heart Rate Pre-Dialysis 61 BPM Sitting Heart Rate Post-Dialysis 58 BPM Standing Heart Rate Pre-Dialysis 68 BPM Standing Heart Rate Post-Dialysis 88 BPM Temperature Pre-Dialysis 98.1 degF Temperature Post -Dialysis 97.3 degF October 17, 2023 In-Center Hemodialysis Treatment 5600-56-03W00:12:00.000Z 3636-53-76N02:31:41.000Z BP Sitting (Pre-Dialysis) 134/81 mmHg BP Sitting (Post-Dialysis) 121/71 mmHg Concurrent Access: falseCentral Venous Catheter (CVC) Chest (Right) Arterial BP Standing (Pre-Dialysis) 135/84 mmHg BP Standing (P ost-Dialysis) 147/70 mmHg Sitting Heart Rate Pre-Dialysis 73 BPM Sitting Heart Rate Post-Dialysis 77 BPM Standing Heart Rate Pre-Dialysis 77 BPM Standing Heart Rate Post-Dialysis 79 BPM Temperature Pre-Dialysis 97.2 degF Temperature Post -Dialysis 97.4 degF October 15, 2023 In-Center Hemodialysis Treatment 7758-16-23E86:34:22.000Z 1877-46-68N01:40:00.000Z BP Sitting (Pre-Dialysis) 140/78 mmHg BP Sitting (Post-Dialysis) 129/68 mmHg Concurrent Access: falseCentral Venous Catheter (CVC) Chest (Right) Arterial BP Standing (Pre-Dialysis) 137/77 mmHg BP Standing (P ost-Dialysis) 113/68 mmHg Sitting Heart Rate Pre-Dialysis 62 BPM Sitting Heart Rate Post-Dialysis 58 BPM Standing Heart Rate Pre-Dialysis 76 BPM Standing Heart Rate Post-Dialysis 71 BPM Temperature Pre-Dialysis 97.8 degF Temperature Post -Dialysis 97.6 degF October 13, 2023 In-Center Hemodialysis Treatment 0255-44-29M77:43:00.000Z 5794-56-04J30:16:45.000Z BP Sitting (Pre-Dialysis) 149/83 mmHg BP Sitting (Post-Dialysis) 124/83 mmHg Concurrent Access: falseCentral Venous Catheter (CVC) Chest (Right) Arterial BP Standing (Pre-Dialysis) 152/95 mmHg BP Standing (P ost-Dialysis) 146/69 mmHg Sitting Heart Rate Pre-Dialysis 75 BPM Sitting Heart Rate Post-Dialysis 71 BPM Standing Heart Rate Pre-Dialysis 75 BPM Standing Heart Rate Post-Dialysis 80 BPM Temperature Pre-Dialysis 97.8 degF Temperature Post -Dialysis 97.5 degF October 10, 2023 In-Center Hemodialysis Treatment [id number]:22:00.000Z 7767-56-59F72:11:41.000Z BP Sitting (Pre-Dialysis) 153/78 mmHg BP Sitting (Post-Dialysis) 111/71 mmHg Concurrent Access: falseCentral Venous Catheter (CVC) Chest (Right) Arterial Sitting Heart Rate Pre-Dialysis 54 BPM BP Standi ng (Post-Dialysis) 135/42 mmHg Temperature Pre-Dialysis 98 degF Sitting Heart Ra te Post-Dialysis 68 BPM Standing Heart Rate Post-Pinky lysis 65 BPM Temperature Post-Dialysis 97 .6 degF October 08, 2023 In-Center Hemodialysis Treatment [id number]:14:51.000Z 2271-00-50S77:22:51.000Z BP Sitting (Pre-Dialysis) 105/64 mmHg BP Sitting (Post-Dialysis) 115/64 mmHg Concurrent Access: falseCentral Venous Catheter (CVC) Chest (Right) Arterial BP Standing (Pre-Dialysis) 127/74 mmHg BP Standing (P ost-Dialysis) 124/66 mmHg Sitting Heart Rate Pre-Dialysis 68 BPM Sitting Heart Rate Post-Dialysis 55 BPM Standing Heart Rate Pre-Dialysis 81 BPM Standing Heart Rate Post-Dialysis 66 BPM Temperature Pre-Dialysis 97.2 degF Temperature Post -Dialysis 98 degF October 06, 2023 In-Center Hemodialysis Treatment 3492-11-57P38:37:50.000Z 9022-89-57M01:20:54.000Z BP Sitting (Pre-Dialysis) 150/88 mmHg BP Sitting (Post-Dialysis) 136/65 mmHg Concurrent Access: falseCentral Venous Catheter (CVC) Chest (Right) Arterial BP Standing (Pre-Dialysis) 162/93 mmHg BP Standing (P ost-Dialysis) 126/73 mmHg Sitting Heart Rate Pre-Dialysis 60 BPM Sitting Heart Rate Post-Dialysis 64 BPM Standing Heart Rate Pre-Dialysis 64 BPM Standing Heart Rate Post-Dialysis 63 BPM Temperature Pre-Dialysis 97.4 degF Temperature Post -Dialysis 97.3 degF October 03, 2023 In-Center Hemodialysis Treatment [id number]:58:00.000Z 7260-70-56A40:28:55.000Z BP Sitting (Pre-Dialysis) 146/82 mmHg BP Sitting (Post-Dialysis) 124/84 mmHg Concurrent Access: falseCentral Venous Catheter (CVC) Chest (Right) Arterial BP Standing (Pre-Dialysis) 158/87 mmHg BP Standing (P ost-Dialysis) 130/72 mmHg Sitting Heart Rate Pre-Dialysis 68 BPM Sitting Heart Rate Post-Dialysis 70 BPM Standing Heart Rate Pre-Dialysis 75 BPM Standing Heart Rate Post-Dialysis 76 BPM Temperature Pre-Dialysis 97.7 degF Temperature Post -Dialysis 97.9 degF September 29, 2023 In-Center Hemodialysis Treatment 0670-00-48W60:52:18.000Z 5388-84-98I33:23:22.000Z BP Sitting (Pre-Dialysis) 149/83 mmHg BP Sitting (Post-Dialysis) 125/80 mmHg Concurrent Access: falseCentral Venous Catheter (CVC) Chest (Right) Arterial BP Standing (Pre-Dialysis) 152/95 mmHg BP Standing (P ost-Dialysis) 149/82 mmHg Sitting Heart Rate Pre-Dialysis 71 BPM Sitting Heart Rate Post-Dialysis 80 BPM Standing Heart Rate Pre-Dialysis 72 BPM Standing Heart Rate Post-Dialysis 89 BPM Temperature Pre-Dialysis 97.6 degF Temperature Post -Dialysis 97.5 degF September 26, 2023 In-Center Hemodialysis Treatment [id number]:40:50.000Z 4850-81-50F90:12:54.000Z BP Sitting (Pre-Dialysis) 133/74 mmHg BP Sitting (Post-Dialysis) 117/68 mmHg Concurrent Access: falseCentral Venous Catheter (CVC) Chest (Right) Arterial BP Standing (Pre-Dialysis) 128/76 mmHg BP Standing (P ost-Dialysis) 117/64 mmHg Sitting Heart Rate Pre-Dialysis 76 BPM Sitting Heart Rate Post-Dialysis 74 BPM Standing Heart Rate Pre-Dialysis 74 BPM Standing Heart Rate Post-Dialysis 78 BPM Temperature Pre-Dialysis 97.3 degF Temperature Post -Dialysis 97.1 degF September 24, 2023 In-Center Hemodialysis Treatment [id number]:22:27.000Z 1266-39-14R10:55:30.000Z BP Sitting (Pre-Dialysis) 128/74 mmHg BP Sitting (Post-Dialysis) 121/86 mmHg Concurrent Access: falseCentral Venous Catheter (CVC) Chest (Right) Arterial BP Standing (Pre-Dialysis) 125/75 mmHg BP Standing (P ost-Dialysis) 113/75 mmHg Sitting Heart Rate Pre-Dialysis 65 BPM Sitting Heart Rate Post-Dialysis 70 BPM Standing Heart Rate Pre-Dialysis 71 BPM Standing Heart Rate Post-Dialysis 83 BPM Temperature Pre-Dialysis 98 degF Temperature Post -Dialysis 98.1 degF September 22, 2023 In-Center Hemodialysis Treatment 2886-27-41G63:24:23.000Z 5659-79-70O05:53:28.000Z BP Sitting (Pre-Dialysis) 135/81 mmHg BP Sitting (Post-Dialysis) 126/76 mmHg Concurrent Access: falseCentral Venous Catheter (CVC) Chest (Right) Arterial BP Standing (Pre-Dialysis) 151/91 mmHg BP Standing (P ost-Dialysis) 112/70 mmHg Sitting Heart Rate Pre-Dialysis 76 BPM Sitting Heart Rate Post-Dialysis 64 BPM Standing Heart Rate Pre-Dialysis 87 BPM Standing Heart Rate Post-Dialysis 87 BPM Temperature Pre-Dialysis 97.9 degF Temperature Post -Dialysis 98 degF September 19, 2023 In-Center Hemodialysis Treatment [id number]:13:49.000Z 6620-72-06O54:53:54.000Z BP Sitting (Pre-Dialysis) 128/73 mmHg BP Sitting (Post-Dialysis) 132/83 mmHg Concurrent Access: falseCentral Venous Catheter (CVC) Chest (Right) Arterial BP Standing (Pre-Dialysis) 134/83 mmHg BP Standing (P ost-Dialysis) 129/60 mmHg Sitting Heart Rate Pre-Dialysis 86 BPM Sitting Heart Rate Post-Dialysis 76 BPM Standing Heart Rate Pre-Dialysis 81 BPM Standing Heart Rate Post-Dialysis 89 BPM Temperature Pre-Dialysis 98.1 degF Temperature Post -Dialysis 97.7 degF September 17, 2023 In-Center Hemodialysis Treatment 7578-16-01U14:58:30.000Z [id number]:29:33.000Z BP Sitting (Pre-Dialysis) 136/77 mmHg BP Sitting (Post-Dialysis) 134/77 mmHg Concurrent Access: falseCentral Venous Catheter (CVC) Chest (Right) Arterial BP Standing (Pre-Dialysis) 132/82 mmHg BP Standing (P ost-Dialysis) 118/65 mmHg Sitting Heart Rate Pre-Dialysis 78 BPM Sitting Heart Rate Post-Dialysis 75 BPM Standing Heart Rate Pre-Dialysis 85 BPM Standing Heart Rate Post-Dialysis 91 BPM Temperature Pre-Dialysis 98.2 degF Temperature Post -Dialysis 97.8 degF September 15, 2023 In-Center Hemodialysis Treatment [id number]:16:00.000Z [id number]:53:38.000Z BP Sitting (Pre-Dialysis) 145/82 mmHg BP Sitting (Post-Dialysis) 119/82 mmHg Concurrent Access: falseCentral Venous Catheter (CVC) Chest (Right) Arterial BP Standing (Pre-Dialysis) 149/81 mmHg BP Standing (P ost-Dialysis) 124/74 mmHg Sitting Heart Rate Pre-Dialysis 76 BPM Sitting Heart Rate Post-Dialysis 73 BPM Standing Heart Rate Pre-Dialysis 91 BPM Standing Heart Rate Post-Dialysis 84 BPM Temperature Pre-Dialysis 98 degF Temperature Post -Dialysis 97.9 degF September 12, 2023 In-Center Hemodialysis Treatment [id number]:17:22.000Z [id number]:50:22.000Z BP Sitting (Pre-Dialysis) 153/115 mmHg BP Sitting (Post-Dialysis) 134/81 mmHg Concurrent Access: falseCentral Venous Catheter (CVC) Chest (Right) Arterial BP Standing (Pre-Dialysis) 139/85 mmHg BP Standing (P ost-Dialysis) 108/78 mmHg Sitting Heart Rate Pre-Dialysis 70 BPM Sitting Heart Rate Post-Dialysis 72 BPM Standing Heart Rate Pre-Dialysis 81 BPM Standing Heart Rate Post-Dialysis 77 BPM Temperature Pre-Dialysis 97.5 degF Temperature Post -Dialysis 98.1 degF September 10, 2023 In-Center Hemodialysis Treatment [id number]:26:28.000Z [id number]:57:31.000Z BP Sitting (Pre-Dialysis) 139/78 mmHg BP Sitting (Post-Dialysis) 139/82 mmHg Concurrent Access: falseCentral Venous Catheter (CVC) Chest (Right) Arterial BP Standing (Pre-Dialysis) 138/85 mmHg BP Standing (P ost-Dialysis) 126/75 mmHg Sitting Heart Rate Pre-Dialysis 71 BPM Sitting Heart Rate Post-Dialysis 67 BPM Standing Heart Rate Pre-Dialysis 75 BPM Standing Heart Rate Post-Dialysis 74 BPM Temperature Pre-Dialysis 97.9 degF Temperature Post -Dialysis 98.1 degF September 08, 2023 In-Center Hemodialysis Treatment [id number]:36:28.000Z [id number]:07:32.000Z BP Sitting (Pre-Dialysis) 137/72 mmHg BP Sitting (Post-Dialysis) 156/82 mmHg Concurrent Access: falseCentral Venous Catheter (CVC) Chest (Right) Arterial BP Standing (Pre-Dialysis) 136/83 mmHg BP Standing (P ost-Dialysis) 130/79 mmHg Sitting Heart Rate Pre-Dialysis 69 BPM Sitting Heart Rate Post-Dialysis 63 BPM Standing Heart Rate Pre-Dialysis 82 BPM Standing Heart Rate Post-Dialysis 77 BPM Temperature Pre-Dialysis 98.1 degF Temperature Post -Dialysis 97.6 degF September 05, 2023 In-Center Hemodialysis Treatment [id number]:13:48.000Z [id number]:42:53.000Z BP Sitting (Pre-Dialysis) 145/82 mmHg BP Sitting (Post-Dialysis) 137/74 mmHg Concurrent Access: falseCentral Venous Catheter (CVC) Chest (Right) Arterial BP Standing (Pre-Dialysis) 127/83 mmHg BP Standing (P ost-Dialysis) 155/81 mmHg Sitting Heart Rate Pre-Dialysis 81 BPM Sitting Heart Rate Post-Dialysis 63 BPM Standing Heart Rate Pre-Dialysis 93 BPM Standing Heart Rate Post-Dialysis 77 BPM Temperature Pre-Dialysis 98.3 degF Temperature Post -Dialysis 98.2 degF September 03, 2023 In-Center Hemodialysis Treatment [id number]:39:00.000Z [id number]:10:39.000Z BP Sitting (Pre-Dialysis) 147/82 mmHg BP Sitting (Post-Dialysis) 155/82 mmHg Concurrent Access: falseCentral Venous Catheter (CVC) Chest (Right) Arterial BP Standing (Pre-Dialysis) 145/86 mmHg BP Standing (P ost-Dialysis) 133/81 mmHg Sitting Heart Rate Pre-Dialysis 69 BPM Sitting Heart Rate Post-Dialysis 66 BPM Standing Heart Rate Pre-Dialysis 86 BPM Standing Heart Rate Post-Dialysis 75 BPM Temperature Pre-Dialysis 98.3 degF Temperature Post -Dialysis 98 degF September 01, 2023 In-Center Hemodialysis Treatment [id number]:47:40.000Z [id number]:19:44.000Z BP Sitting (Pre-Dialysis) 142/84 mmHg BP Sitting (Post-Dialysis) 159/84 mmHg Concurrent Access: falseCentral Venous Catheter (CVC) Chest (Right) Arterial BP Standing (Pre-Dialysis) 150/86 mmHg BP Standing (P ost-Dialysis) 145/62 mmHg Sitting Heart Rate Pre-Dialysis 65 BPM Sitting Heart Rate Post-Dialysis 57 BPM Standing Heart Rate Pre-Dialysis 74 BPM Standing Heart Rate Post-Dialysis 58 BPM Temperature Pre-Dialysis 97.3 degF Temperature Post -Dialysis 97.3 degF August 29, 2023 In-Center Hemodialysis Treatment [id number]:26:50.000Z [id number]:55:54.000Z BP Sitting (Pre-Dialysis) 148/83 mmHg BP Sitting (Post-Dialysis) 153/85 mmHg Concurrent Access: falseCentral Venous Catheter (CVC) Chest (Right) Arterial BP Standing (Pre-Dialysis) 148/83 mmHg BP Standing (P ost-Dialysis) 161/85 mmHg Sitting Heart Rate Pre-Dialysis 76 BPM Sitting Heart Rate Post-Dialysis 67 BPM Standing Heart Rate Pre-Dialysis 76 BPM Standing Heart Rate Post-Dialysis 64 BPM Temperature Pre-Dialysis 97.5 degF Temperature Post -Dialysis 98 degF August 27, 2023 In-Center Hemodialysis Treatment [id number]:15:50.000Z [id number]:45:54.000Z BP Sitting (Pre-Dialysis) 170/85 mmHg BP Sitting (Post-Dialysis) 166/74 mmHg Concurrent Access: falseCentral Venous Catheter (CVC) Chest (Right) Arterial BP Standing (Pre-Dialysis) 166/102 mmHg BP Standing (P ost-Dialysis) 139/86 mmHg Sitting Heart Rate Pre-Dialysis 77 BPM Sitting Heart Rate Post-Dialysis 73 BPM Standing Heart Rate Pre-Dialysis 82 BPM Standing Heart Rate Post-Dialysis 96 BPM Temperature Pre-Dialysis 97.9 degF Temperature Post -Dialysis 98.1 degF August 25, 2023 In-Center Hemodialysis Treatment [id number]:05:17.000Z [id number]:35:20.000Z BP Sitting (Pre-Dialysis) 153/87 mmHg BP Sitting (Post-Dialysis) 141/85 mmHg Concurrent Access: falseCentral Venous Catheter (CVC) Chest (Right) Arterial BP Standing (Pre-Dialysis) 153/92 mmHg BP Standing (P ost-Dialysis) 134/89 mmHg Sitting Heart Rate Pre-Dialysis 82 BPM Sitting Heart Rate Post-Dialysis 60 BPM Standing Heart Rate Pre-Dialysis 90 BPM Standing Heart Rate Post-Dialysis 76 BPM Temperature Pre-Dialysis 97.3 degF Temperature Post -Dialysis 97.6 degF August 22, 2023 In-Center Hemodialysis Treatment [id number]:06:35.000Z [id number]:36:38.000Z BP Sitting (Pre-Dialysis) 143/86 mmHg BP Sitting (Post-Dialysis) 149/89 mmHg Concurrent Access: falseCentral Venous Catheter (CVC) Chest (Right) Arterial BP Standing (Pre-Dialysis) 147/84 mmHg BP Standing (P ost-Dialysis) 141/86 mmHg Sitting Heart Rate Pre-Dialysis 89 BPM Sitting Heart Rate Post-Dialysis 73 BPM Standing Heart Rate Pre-Dialysis 104 BPM Standing Heart Rate Post-Dialysis 75 BPM Temperature Pre-Dialysis 97.5 degF Temperature Post -Dialysis 98.1 degF August 20, 2023 In-Center Hemodialysis Treatment [id number]:53:41.000Z [id number]:21:45.000Z BP Sitting (Pre-Dialysis) 121/72 mmHg BP Sitting (Post-Dialysis) 142/81 mmHg Concurrent Access: falseCentral Venous Catheter (CVC) Chest (Right) Arterial BP Standing (Pre-Dialysis) 125/60 mmHg BP Standing (P ost-Dialysis) 131/84 mmHg Sitting Heart Rate Pre-Dialysis 81 BPM Sitting Heart Rate Post-Dialysis 69 BPM Standing Heart Rate Pre-Dialysis 87 BPM Standing Heart Rate Post-Dialysis 79 BPM Temperature Pre-Dialysis 98 degF Temperature Post -Dialysis 97.8 degF August 18, 2023 In-Center Hemodialysis Treatment [id number]:56:20.000Z [id number]:27:23.000Z BP Sitting (Pre-Dialysis) 160/86 mmHg BP Sitting (Post-Dialysis) 164/91 mmHg Concurrent Access: falseCentral Venous Catheter (CVC) Chest (Right) Arterial BP Standing (Pre-Dialysis) 148/87 mmHg BP Standing (P ost-Dialysis) 152/89 mmHg Sitting Heart Rate Pre-Dialysis 66 BPM Sitting Heart Rate Post-Dialysis 60 BPM Standing Heart Rate Pre-Dialysis 73 BPM Standing Heart Rate Post-Dialysis 68 BPM Temperature Pre-Dialysis 97.8 degF Temperature Post -Dialysis 98 degF August 15, 2023 In-Center Hemodialysis Treatment [id number]:03:21.000Z [id number]:28:24.000Z BP Sitting (Pre-Dialysis) 142/85 mmHg BP Sitting (Post-Dialysis) 126/82 mmHg Concurrent Access: falseCentral Venous Catheter (CVC) Chest (Right) Arterial BP Standing (Pre-Dialysis) 153/29 mmHg BP Standing (P ost-Dialysis) 134/86 mmHg Sitting Heart Rate Pre-Dialysis 76 BPM Sitting Heart Rate Post-Dialysis 61 BPM Standing Heart Rate Pre-Dialysis 80 BPM Standing Heart Rate Post-Dialysis 76 BPM Temperature Pre-Dialysis 96.7 degF Temperature Post -Dialysis 98.2 degF August 13, 2023 In-Center Hemodialysis Treatment [id number]:39:39.000Z [id number]:08:42.000Z BP Sitting (Pre-Dialysis) 146/86 mmHg BP Sitting (Post-Dialysis) 128/79 mmHg Concurrent Access: falseCentral Venous Catheter (CVC) Chest (Right) Arterial BP Standing (Pre-Dialysis) 150/87 mmHg BP Standing (P ost-Dialysis) 142/58 mmHg Sitting Heart Rate Pre-Dialysis 82 BPM Sitting Heart Rate Post-Dialysis 73 BPM Standing Heart Rate Pre-Dialysis 90 BPM Standing Heart Rate Post-Dialysis 73 BPM Temperature Pre-Dialysis 98.4 degF Temperature Post -Dialysis 98.2 degF August 11, 2023 In-Center Hemodialysis Treatment [id number]:27:06.000Z [id number]:57:11.000Z BP Sitting (Pre-Dialysis) 165/88 mmHg BP Sitting (Post-Dialysis) 146/86 mmHg Concurrent Access: falseCentral Venous Catheter (CVC) Chest (Right) Arterial BP Standing (Pre-Dialysis) 165/85 mmHg BP Standing (P ost-Dialysis) 141/86 mmHg Sitting Heart Rate Pre-Dialysis 82 BPM Sitting Heart Rate Post-Dialysis 63 BPM Standing Heart Rate Pre-Dialysis 92 BPM Standing Heart Rate Post-Dialysis 69 BPM Temperature Pre-Dialysis 98.6 degF Temperature Post -Dialysis 97.2 degF August 08, 2023 In-Center Hemodialysis Treatment [id number]:56:30.000Z [id number]:25:33.000Z BP Sitting (Pre-Dialysis) 135/78 mmHg BP Sitting (Post-Dialysis) 135/82 mmHg Concurrent Access: falseCentral Venous Catheter (CVC) Chest (Right) Arterial BP Standing (Pre-Dialysis) 157/87 mmHg BP Standing (P ost-Dialysis) 146/89 mmHg Sitting Heart Rate Pre-Dialysis 82 BPM Sitting Heart Rate Post-Dialysis 65 BPM Standing Heart Rate Pre-Dialysis 91 BPM Standing Heart Rate Post-Dialysis 76 BPM Temperature Pre-Dialysis 97.9 degF Temperature Post -Dialysis 97.8 degF August 06, 2023 In-Center Hemodialysis Treatment [id number]:49:29.000Z [id number]:01:33.000Z BP Sitting (Pre-Dialysis) 134/75 mmHg BP Sitting (Post-Dialysis) 138/87 mmHg Concurrent Access: falseCentral Venous Catheter (CVC) Chest (Right) Arterial BP Standing (Pre-Dialysis) 150/86 mmHg BP Standing (P ost-Dialysis) 134/77 mmHg Sitting Heart Rate Pre-Dialysis 83 BPM Sitting Heart Rate Post-Dialysis 77 BPM Standing Heart Rate Pre-Dialysis 94 BPM Standing Heart Rate Post-Dialysis 93 BPM Temperature Pre-Dialysis 98 degF Temperature Post -Dialysis 97.6 degF August 04, 2023 In-Center Hemodialysis Treatment [id number]:09:00.000Z [id number]:43:32.000Z BP Sitting (Pre-Dialysis) 142/74 mmHg BP Sitting (Post-Dialysis) 134/85 mmHg Concurrent Access: falseCentral Venous Catheter (CVC) Chest (Right) Arterial BP Standing (Pre-Dialysis) 152/83 mmHg BP Standing (P ost-Dialysis) 141/82 mmHg Sitting Heart Rate Pre-Dialysis 75 BPM Sitting Heart Rate Post-Dialysis 82 BPM Standing Heart Rate Pre-Dialysis 81 BPM Standing Heart Rate Post-Dialysis 75 BPM Temperature Pre-Dialysis 98 degF Temperature Post -Dialysis 98 degF August 01, 2023 In-Center Hemodialysis Treatment [id number]:57:37.000Z [id number]:26:40.000Z BP Sitting (Pre-Dialysis) 119/68 mmHg BP Sitting (Post-Dialysis) 139/78 mmHg Concurrent Access: falseCentral Venous Catheter (CVC) Chest (Right) Arterial BP Standing (Pre-Dialysis) 128/74 mmHg Sitti ng Heart Rate Post-Dialysis 69 BPM Sitting Heart Rate Pre-Dialysis 78 BPM Temperatu re Post-Dialysis 97.6 degF Standing Heart Rate Pre-Dialysis 81 BPM Temperature Pre-Dialysis 97.6 degF July 30, 2023 In-Center Hemodialysis Treatment [id number]:52:44.000Z [id number]:24:47.000Z BP Sitting (Pre-Dialysis) 142/76 mmHg BP Sitting (Post-Dialysis) 147/83 mmHg Concurrent Access: falseCentral Venous Catheter (CVC) Chest (Right) Arterial BP Standing (Pre-Dialysis) 144/80 mmHg BP Standing (P ost-Dialysis) 144/87 mmHg Sitting Heart Rate Pre-Dialysis 67 BPM Sitting Heart Rate Post-Dialysis 69 BPM Standing Heart Rate Pre-Dialysis 78 BPM Standing Heart Rate Post-Dialysis 77 BPM Temperature Pre-Dialysis 98 degF Temperature Post -Dialysis 97.8 degF July 28, 2023 In-Center Hemodialysis Treatment [id number]:41:45.000Z [id number]:58:48.000Z BP Sitting (Pre-Dialysis) 162/85 mmHg BP Sitting (Post-Dialysis) 149/89 mmHg Concurrent Access: falseCentral Venous Catheter (CVC) Chest (Right) Arterial BP Standing (Pre-Dialysis) 156/85 mmHg Sitti ng Heart Rate Post-Dialysis 81 BPM Sitting Heart Rate Pre-Dialysis 73 BPM Temperatu re Post-Dialysis 98.2 degF Standing Heart Rate Pre-Dialysis 83 BPM Temperature Pre-Dialysis 97.7 degF July 25, 2023 In-Center Hemodialysis Treatment [id number]:42:26.000Z [id number]:11:29.000Z BP Sitting (Pre-Dialysis) 162/89 mmHg BP Sitting (Post-Dialysis) 184/96 mmHg Concurrent Access: falseCentral Venous Catheter (CVC) Chest (Right) Arterial BP Standing (Pre-Dialysis) 165/98 mmHg BP Standing (P ost-Dialysis) 181/97 mmHg Sitting Heart Rate Pre-Dialysis 85 BPM Sitting Heart Rate Post-Dialysis 75 BPM Standing Heart Rate Pre-Dialysis 94 BPM Standing Heart Rate Post-Dialysis 79 BPM Temperature Pre-Dialysis 98.4 degF Temperature Post -Dialysis 98 degF July 23, 2023 In-Center Hemodialysis Treatment [id number]:38:34.000Z [id number]:45:36.000Z BP Sitting (Pre-Dialysis) 178/90 mmHg BP Sitting (Post-Dialysis) 180/100 mmHg Concurrent Access: falseCentral Venous Catheter (CVC) Chest (Right) Arterial BP Standing (Pre-Dialysis) 176/104 mmHg Sitti ng Heart Rate Post-Dialysis 68 BPM Sitting Heart Rate Pre-Dialysis 84 BPM Temperatu re Post-Dialysis 97.6 degF Standing Heart Rate Pre-Dialysis 100 BPM Temperature Pre-Dialysis 98 degF July 21, 2023 In-Center Hemodialysis Treatment [id number]:37:54.000Z [id number]:41:57.000Z BP Sitting (Pre-Dialysis) 162/93 mmHg BP Sitting (Post-Dialysis) 154/63 mmHg Concurrent Access: falseCentral Venous Catheter (CVC) Chest (Right) Arterial BP Standing (Pre-Dialysis) 172/89 mmHg BP Standing (P ost-Dialysis) 151/83 mmHg Sitting Heart Rate Pre-Dialysis 84 BPM Sitting Heart Rate Post-Dialysis 75 BPM Standing Heart Rate Pre-Dialysis 84 BPM Standing Heart Rate Post-Dialysis 82 BPM Temperature Pre-Dialysis 97.6 degF Temperature Post -Dialysis 97.8 degF July 18, 2023 In-Center Hemodialysis Treatment [id number]:50:01.000Z [id number]:40:03.000Z BP Sitting (Pre-Dialysis) 162/88 mmHg BP Sitting (Post-Dialysis) 142/84 mmHg Concurrent Access: falseCentral Venous Catheter (CVC) Chest (Right) Arterial BP Standing (Pre-Dialysis) 164/84 mmHg BP Standing (P ost-Dialysis) 136/82 mmHg Sitting Heart Rate Pre-Dialysis 79 BPM Sitting Heart Rate Post-Dialysis 63 BPM Standing Heart Rate Pre-Dialysis 84 BPM Standing Heart Rate Post-Dialysis 80 BPM Temperature Pre-Dialysis 98.3 degF Temperature Post -Dialysis 97.5 degF July 16, 2023 In-Center Hemodialysis Treatment [id number]:30:00.000Z [id number]:30:36.000Z BP Sitting (Pre-Dialysis) 202/109 mmHg BP Sitting (Post-Dialysis) 182/106 mmHg Concurrent Access: falseCentral Venous Catheter (CVC) Chest (Right) Arterial BP Standing (Pre-Dialysis) 213/117 mmHg BP Standing (P ost-Dialysis) 179/102 mmHg Sitting Heart Rate Pre-Dialysis 77 BPM Sitting Heart Rate Post-Dialysis 72 BPM Standing Heart Rate Pre-Dialysis 79 BPM Standing Heart Rate Post-Dialysis 86 BPM Temperature Pre-Dialysis 98.2 degF Temperature Post -Dialysis 98.1 degF DIALYSIS ORDER Dialysis Procedure Orders Type of Dialysis Procedure Order Order Date/Time Observations In-Center Hemodialysis Treatment September 24, 2024 Target Weight 112.5 kg Dialysate Flow Rate 600 mL/min Blood Flow Rate 350 mL/min Treatment Time 210 min(total) Max UF Rate 13 mL/kg/hr Base Sodium Dialysate Base Sodium 138 mE q/L dialysate_temp 36 C BiCarb Dialysate BiCarbonate 37 mEq/L Access Concurrent No Arterial Access Central Venous [facility] (CVC) (Chest (Right)) Venous Access Central Venous [facility] (CVC) (Chest (Right)) Dialyzer Lilia Gaspar 17H 145 5 [email or web address] Dialysate Bath Potassium Potassium 2 mEq /L Dialysate Bath Calcium Calcium 2.5 mEq/L Results Adequacy Description Draw Date Result/Unit Status Ref Range Result Comments Creatinine [Mass/volume] in Serum or Plasma 2024-09-14 17:19:15 6.64 mg/dL F 0.5-1.1 URR% 2024-09-02 17:25:26 77 % F DIALYZER FLOW-QD 2024-09-02 17:25:26 600 mL/min F Dialyzer LEO 2024-09-02 17:25:26 1455 Calc F LENGTH OF DIALYSIS 2024-09-02 17:25:26 210 min F PATIENT AGE 2024-09-02 17:25:26 48 Years F BSA QUANG 2024-09-02 17:25:26 2.05 sq m F WEIGHT - POST DAY 1 2024-09-02 17:25:26 112.3 kg F WEIGHT - PRE DAY 1 2024-09-02 17:25:26 114.3 kg F HEIGHT IN INCHES 2024-09-02 17:25:26 60 Inches F WEIGHT (KG) 2024-09-02 17:25:26 112.5 kg F PRESCRIBED DAYS/WEEK 2024-09-02 17:25:26 3 Day/Wk F VT (KT/V TX VOL) 2024-09-02 17:25:26 32.6 L F VM (KT/V MEAN VOL) 2024-09-02 17:25:26 32 F Residual kt/v 2024-09-02 17:25:26 F KT/V PRESCRIBED 2024-09-02 17:25:26 1.61 F Total Kt/V 2024-09-02 17:25:26 1.74 F nPCR 2024-09-02 17:25:26 1.2 G/KG/D F AMPUTATE FACTOR 2024-09-02 17:25:26 0 F TBW (Wick) 2024-09-02 17:25:26 41.89 Liters F spKt/V 2024-09-02 17:25:26 1.74 F eKt/V 2024-09-02 17:25:26 1.46 F Std Renal KT/V 2024-09-02 17:25:26 N/A F stdKt/V (DIAL) 2024-09-02 17:25:26 N/A F stdKT/V Total 2024-09-02 17:25:26 N/A F TOTAL HOURS/WEEK DIALYSIS 2024-09-02 17:25:26 10 hrs F BLOOD FLOW-QWB 2024-09-02 17:25:26 350 F CURRENT KRU 2024-09-02 17:25:26 F Urea nitrogen [Mass/volume] in Serum or Plasma 2024-09-02 17:23:23 57 mg/dL F 9.0-23.0 Urea nitrogen [Mass/volume] in Serum or Plasma --post dialysis 2024-09-02 15:50:15 13 mg/dL F 9.0-23.0 URR% 2024-08-31 14:42:05 F Recollect - Shipping temp out of range,Unable to Calculate. Urea nitrogen [Mass/volume] in Serum or Plasma --post dialysis 2024-08-31 14:40:50 F Recollect - Shipping temp out of range Urea nitrogen [Mass/volume] in Serum or Plasma 2024-08-31 14:40:50 F Recollect - Shipping temp out of range PATIENT AGE 2024-08-30 19:55:06 48 Years F HEIGHT IN INCHES 2024-08-30 19:55:06 60 Inches F WEIGHT (KG) 2024-08-30 19:55:06 112.5 kg F AMPUTATE FACTOR 2024-08-30 19:55:06 0 F Creatinine [Mass/volume] in Serum or Plasma 2024-08-11 00:22:23 7.23 mg/dL F 0.5-1.1 URR% 2024-07-28 16:31:51 79 % F DIALYZER FLOW-QD 2024-07-28 16:31:51 600 mL/min F Dialyzer LEO 2024-07-28 16:31:51 1455 Calc F LENGTH OF DIALYSIS 2024-07-28 16:31:51 214 min F PATIENT AGE 2024-07-28 16:31:51 48 Years F BSA QUANG 2024-07-28 16:31:51 2.03 sq m F WEIGHT - POST DAY 1 2024-07-28 16:31:51 112.1 kg F WEIGHT - PRE DAY 1 2024-07-28 16:31:51 114.3 kg F HEIGHT IN INCHES 2024-07-28 16:31:51 60 Inches F WEIGHT (KG) 2024-07-28 16:31:51 111 kg F PRESCRIBED DAYS/WEEK 2024-07-28 16:31:51 3 Day/Wk F VT (KT/V TX VOL) 2024-07-28 16:31:51 32.2 L F VM (KT/V MEAN VOL) 2024-07-28 16:31:51 31.8 F Residual kt/v 2024-07-28 16:31:51 F Unable to calculate: Pre BUN lab result is unknown Total Kt/V 2024-07-28 16:31:51 1.79 F KT/V PRESCRIBED 2024-07-28 16:31:51 1.65 F nPCR 2024-07-28 16:31:51 1 G/KG/D F AMPUTATE FACTOR 2024-07-28 16:31:51 0 F TBW (Wick) 2024-07-28 16:31:51 41.84 Liters F spKt/V 2024-07-28 16:31:51 1.79 F eKt/V 2024-07-28 16:31:51 1.51 F stdKt/V (DIAL) 2024-07-28 16:31:51 N/A F stdKT/V Total 2024-07-28 16:31:51 N/A F Std Renal KT/V 2024-07-28 16:31:51 N/A F TOTAL HOURS/WEEK DIALYSIS 2024-07-28 16:31:51 10 hrs F BLOOD FLOW-QWB 2024-07-28 16:31:51 350 F CURRENT KRU 2024-07-28 16:31:51 F Unable to calculate: Pre BUN lab result is unknown Urea nitrogen [Mass/volume] in Serum or Plasma 2024-07-28 16:30:14 61 mg/dL F 9.0-23.0 Urea nitrogen [Mass/volume] in Serum or Plasma --post dialysis 2024-07-27 17:10:18 13 mg/dL F 9.0-23.0 DIALYZER FLOW-QD Dialyzer LEO LENGTH OF DIALYSIS BSA QUANG WEIGHT - POST DAY 1 WEIGHT - PRE DAY 1 PRESCRIBED DAYS/WEEK VT (KT/V TX VOL) VM (KT/V MEAN VOL) Residual kt/v KT/V PRESCRIBED Total Kt/V nPCR TBW (Wick) spKt/V eKt/V Std Renal KT/V stdKt/V (DIAL) stdKT/V Total TOTAL HOURS/WEEK DIALYSIS BLOOD FLOW-QWB CURRENT KRU Anemia Description Draw Date Result/Unit Status Ref Range Result Comments HCT CALC HGBX3 2024-09-15 03:47:16 30.9 % F 37.0-47.0 Erythrocyte distribution width [Ratio] by Automated count 2024-09-15 03:44:09 14.7 % F 11.0-15.0 Erythrocytes [#/volume] in Blood by Automated count 2024-09-15 03:44:09 3.05 x 10^6 cells/uL F 3.85-5.2 Hematocrit [Volume Fraction] of Blood by Automated count 2024-09-15 03:44:09 30.8 % F 37.0-47.0 Hemoglobin [Mass/volume] in Blood 2024-09-15 03:44:09 10.3 g/dL F 12.0-16.0 MCV [Entitic volume] by Automated count 2024-09-15 03:44:09 101 fL F 80.0-100.0 MCH [Entitic mass] by Automated count 2024-09-15 03:44:09 33.6 pg F 25.9-34.2 MCHC [Mass/volume] by Automated count 2024-09-15 03:44:09 33.3 g/dL F 29.6-35.3 Platelets [#/volume] in Blood by Automated count 2024-09-15 03:44:09 163 x 10^3 cells/uL F 140.0-450.0 HCT CALC HGBX3 2024-09-02 15:53:17 31.2 % F 37.0-47.0 Hemoglobin [Mass/volume] in Blood 2024-09-02 15:52:23 10.4 g/dL F 12.0-16.0 HCT CALC HGBX3 2024-08-31 14:47:29 see comments F 37.0-47.0 Unable to Calculate. Hemoglobin [Mass/volume] in Blood 2024-08-31 14:46:34 F Recollect - Shipping temp out of range TIBC 2024-08-11 06:08:01 209 ug/dL F 250.0-425.0 IRON SATURATION 2024-08-11 06:08:01 31 % F 16.0-46.0 HCT CALC HGBX3 2024-08-11 06:08:01 31.5 % F 37.0-47.0 Iron binding capacity.unsaturated [Mass/volume] in Serum or Plasma 2024-08-11 05:56:40 145 ug/dL F 80.0-375.0 Iron [Mass/volume] in Serum or Plasma 2024-08-11 05:56:40 64 ug/dL F 50.0-170.0 Erythrocyte distribution width [Ratio] by Automated count 2024-08-11 05:56:11 15.9 % F 11.0-15.0 Erythrocytes [#/volume] in Blood by Automated count 2024-08-11 05:56:11 3.17 x 10^6 cells/uL F 3.85-5.2 Hematocrit [Volume Fraction] of Blood by Automated count 2024-08-11 05:56:11 33.3 % F 37.0-47.0 Hemoglobin [Mass/volume] in Blood 2024-08-11 05:56:11 10.5 g/dL F 12.0-16.0 MCV [Entitic volume] by Automated count 2024-08-11 05:56:11 105.1 fL F 80.0-100.0 MCH [Entitic mass] by Automated count 2024-08-11 05:56:11 33 pg F 25.9-34.2 MCHC [Mass/volume] by Automated count 2024-08-11 05:56:11 31.4 g/dL F 29.6-35.3 Platelets [#/volume] in Blood by Automated count 2024-08-11 05:56:11 219 x 10^3 cells/uL F 140.0-450.0 Ferritin [Mass/volume] in Serum or Plasma 2024-08-10 19:43:20 611 ng/mL F 10.0-291.0 HCT CALC HGBX3 2024-07-28 12:24:59 31.2 % F 37.0-47.0 Hemoglobin [Mass/volume] in Blood 2024-07-28 12:24:12 10.4 g/dL F 12.0-16.0 Comorbidities Description Draw Date Result/Unit Status Ref Range Result Comments Hemoglobin A1c/Hemoglobin.total in Blood 2024-08-11 06:22:11 5.3 %A1c F 0.0-5.6 FluidBP Description Draw Date Result/Unit Status Ref Range Result Comments Sodium [Moles/volume] in Serum or Plasma 2024-09-15 01:09:17 139 mEq/L F 132.0-146.0 Sodium [Moles/volume] in Serum or Plasma 2024-08-11 05:56:40 142 mEq/L F 132.0-146.0 General Description Draw Date Result/Unit Status Ref Range Result Comments Chloride [Moles/volume] in Serum or Plasma 2024-09-15 01:09:17 105 mEq/L F 99.0-109.0 Alanine aminotransferase [Enzymatic activity/volume] in Serum or Plasma 2024-09-14 17:19:15 17 U/L F 10.0-49.0 Aspartate aminotransferase [Enzymatic activity/volume] in Serum or Plasma 2024-09-14 17:19:15 17 U/L F 0.0-33.0 Chloride [Moles/volume] in Serum or Plasma 2024-08-11 05:56:40 106 mEq/L F 99.0-109.0 Alanine aminotransferase [Enzymatic activity/volume] in Serum or Plasma 2024-08-11 00:22:23 19 U/L F 10.0-49.0 Aspartate aminotransferase [Enzymatic activity/volume] in Serum or Plasma 2024-08-11 00:22:23 19 U/L F 0.0-33.0 InfectionVaccination Description Draw Date Result/Unit Status Ref Range Result Comments Bacteria identified in Wound shallow by Aerobe culture 2024-09-25 19:21:12 F MICROBIOLOGY - FINAL REPORT REPORT OF: 09/25/24 03:22 Bacteria identified in Wound shallow by Aerobe culture 2024-09-25 19:21:12 F MICROBIOLOGY - FINAL REPORT REPORT OF: 09/25/24 03:22 Bacteria identified in Wound shallow by Aerobe culture 2024-09-25 19:21:12 F MICROBIOLOGY - FINAL REPORT REPORT OF: 09/25/24 03:57 Bacteria identified in Wound shallow by Aerobe culture 2024-09-24 19:03:16 P MICROBIOLOGY - PRELIMINARY REPORT OF: 09/24/24 03:04 Basophils/100 leukocytes in Blood by Automated count 2024-09-15 03:44:09 0.2 % F Neutrophils/100 leukocytes in Blood by Automated count 2024-09-15 03:44:09 64.8 % F Lymphocytes/100 leukocytes in Blood by Automated count 2024-09-15 03:44:09 27.3 % F Eosinophils/100 leukocytes in Blood by Automated count 2024-09-15 03:44:09 2.5 % F Monocytes/100 leukocytes in Blood by Automated count 2024-09-15 03:44:09 5.2 % F Leukocytes [#/volume] in Blood by Automated count 2024-09-15 03:44:09 6.8 x 10^3 cells/uL F 4.0-11.0 Neutrophils [#/volume] in Blood by Automated count 2024-09-15 03:44:09 4400 Cells/uL F 2000.0-8800. 0 Lymphocytes [#/volume] in Blood by Automated count 2024-09-15 03:44:09 1854 Cells/uL F 620.0-3660.0 Monocytes [#/volume] in Blood by Automated count 2024-09-15 03:44:09 353 Cells/uL F 0.0-1100.0 Basophils [#/volume] in Blood by Automated count 2024-09-15 03:44:09 14 Cells/uL F 0.0-400.0 Eosinophils [#/volume] in Blood by Automated count 2024-09-15 03:44:09 170 Cells/uL F 0.0-700.0 Bacteria # 2 identified in Blood by Anaerobe culture 2024-09-07 14:39:06 F MICROBIOLOGY - FINAL REPORT REPORT OF: 09/07/24 10:40 Bacteria # 2 identified in Blood by Aerobe culture 2024-09-07 14:39:06 F MICROBIOLOGY - FINAL REPORT REPORT OF: 09/07/24 10:40 Bacteria identified in Blood by Anaerobe culture 2024-09-07 14:39:06 F MICROBIOLOGY - FINAL REPORT REPORT OF: 09/07/24 10:40 Bacteria identified in Blood by Aerobe culture 2024-09-07 14:39:06 F MICROBIOLOGY - FINAL REPORT REPORT OF: 09/07/24 10:40 Bacteria # 2 identified in Blood by Anaerobe culture 2024-09-06 14:37:22 P MICROBIOLOGY - PRELIMINARY REPORT OF: 09/06/24 10:38 Bacteria # 2 identified in Blood by Anaerobe culture 2024-09-06 14:37:22 P MICROBIOLOGY - PRELIMINARY REPORT OF: 09/07/24 09:40 Bacteria # 2 identified in Blood by Aerobe culture 2024-09-06 14:37:22 P MICROBIOLOGY - PRELIMINARY REPORT OF: 09/06/24 10:38 Bacteria # 2 identified in Blood by Aerobe culture 2024-09-06 14:37:22 P MICROBIOLOGY - PRELIMINARY REPORT OF: 09/07/24 09:40 Bacteria identified in Blood by Anaerobe culture 2024-09-06 14:37:22 P MICROBIOLOGY - PRELIMINARY REPORT OF: 09/07/24 09:40 Bacteria identified in Blood by Anaerobe culture 2024-09-06 14:37:22 P MICROBIOLOGY - PRELIMINARY REPORT OF: 09/06/24 10:38 Bacteria identified in Blood by Aerobe culture 2024-09-06 14:37:22 P MICROBIOLOGY - PRELIMINARY REPORT OF: 09/07/24 09:40 Bacteria identified in Blood by Aerobe culture 2024-09-06 14:37:22 P MICROBIOLOGY - PRELIMINARY REPORT OF: 09/06/24 10:38 Bacteria # 2 identified in Blood by Anaerobe culture 2024-09-05 14:32:35 P MICROBIOLOGY - PRELIMINARY REPORT OF: 09/05/24 10:34 Bacteria # 2 identified in Blood by Aerobe culture 2024-09-05 14:32:35 P MICROBIOLOGY - PRELIMINARY REPORT OF: 09/05/24 10:34 Bacteria identified in Blood by Anaerobe culture 2024-09-05 14:32:35 P MICROBIOLOGY - PRELIMINARY REPORT OF: 09/05/24 10:34 Bacteria identified in Blood by Aerobe culture 2024-09-05 14:32:35 P MICROBIOLOGY - PRELIMINARY REPORT OF: 09/05/24 10:34 Bacteria # 2 identified in Blood by Anaerobe culture 2024-09-04 14:30:25 P MICROBIOLOGY - PRELIMINARY REPORT OF: 09/04/24 10:31 Bacteria # 2 identified in Blood by Aerobe culture 2024-09-04 14:30:25 P MICROBIOLOGY - PRELIMINARY REPORT OF: 09/04/24 10:31 Bacteria identified in Blood by Anaerobe culture 2024-09-04 14:30:25 P MICROBIOLOGY - PRELIMINARY REPORT OF: 09/04/24 10:31 Bacteria identified in Blood by Aerobe culture 2024-09-04 14:30:25 P MICROBIOLOGY - PRELIMINARY REPORT OF: 09/04/24 10:31 Bacteria # 2 identified in Blood by Anaerobe culture 2024-09-03 14:28:33 P MICROBIOLOGY - PRELIMINARY REPORT OF: 09/03/24 10:29 Bacteria # 2 identified in Blood by Aerobe culture 2024-09-03 14:28:33 P MICROBIOLOGY - PRELIMINARY REPORT OF: 09/03/24 10:29 Bacteria identified in Blood by Anaerobe culture 2024-09-03 14:28:33 P MICROBIOLOGY - PRELIMINARY REPORT OF: 09/03/24 10:29 Bacteria identified in Blood by Aerobe culture 2024-09-03 14:28:33 P MICROBIOLOGY - PRELIMINARY REPORT OF: 09/03/24 10:29 Bacteria # 2 identified in Blood by Anaerobe culture 2024-09-02 18:53:11 P MICROBIOLOGY - PRELIMINARY REPORT OF: 09/02/24 02:54 Bacteria # 2 identified in Blood by Aerobe culture 2024-09-02 18:53:11 P MICROBIOLOGY - PRELIMINARY REPORT OF: 09/02/24 02:54 Bacteria identified in Blood by Anaerobe culture 2024-09-02 18:53:11 P MICROBIOLOGY - PRELIMINARY REPORT OF: 09/02/24 02:54 Bacteria identified in Blood by Aerobe culture 2024-09-02 18:53:11 P MICROBIOLOGY - PRELIMINARY REPORT OF: 09/02/24 02:54 Bacteria # 2 identified in Blood by Anaerobe culture 2024-09-02 18:27:15 P MICROBIOLOGY - PRELIMINARY REPORT OF: 09/02/24 02:28 Bacteria # 2 identified in Blood by Anaerobe culture 2024-09-02 18:27:15 P MICROBIOLOGY - PRELIMINARY REPORT OF: 09/02/24 02:28 Bacteria # 2 identified in Blood by Aerobe culture 2024-09-02 18:27:15 P MICROBIOLOGY - PRELIMINARY REPORT OF: 09/02/24 02:28 Bacteria identified in Blood by Anaerobe culture 2024-09-02 18:27:15 P MICROBIOLOGY - PRELIMINARY REPORT OF: 09/02/24 02:28 Bacteria identified in Blood by Anaerobe culture 2024-09-02 18:27:15 P MICROBIOLOGY - PRELIMINARY REPORT OF: 09/02/24 02:28 Bacteria identified in Blood by Aerobe culture 2024-09-02 18:27:15 P MICROBIOLOGY - PRELIMINARY REPORT OF: 09/02/24 02:28 Bacteria # 2 identified in Blood by Aerobe culture 2024-09-02 18:27:15 P MICROBIOLOGY - PRELIMINARY REPORT OF: 09/02/24 02:28 Bacteria identified in Blood by Aerobe culture 2024-09-02 18:27:15 P MICROBIOLOGY - PRELIMINARY REPORT OF: 09/02/24 02:28 Basophils/100 leukocytes in Blood by Automated count 2024-08-11 05:56:13 0.5 % F Leukocytes [#/volume] in Blood by Automated count 2024-08-11 05:56:11 8.4 x 10^3 cells/uL F 4.0-11.0 Neutrophils [#/volume] in Blood by Automated count 2024-08-11 05:56:11 6136 Cells/uL F 2000.0-8800. 0 Lymphocytes [#/volume] in Blood by Automated count 2024-08-11 05:56:11 1597 Cells/uL F 620.0-3660.0 Monocytes [#/volume] in Blood by Automated count 2024-08-11 05:56:11 343 Cells/uL F 0.0-1100.0 Basophils [#/volume] in Blood by Automated count 2024-08-11 05:56:11 42 Cells/uL F 0.0-400.0 Eosinophils/100 leukocytes in Blood by Automated count 2024-08-11 05:56:11 2.9 % F Eosinophils [#/volume] in Blood by Automated count 2024-08-11 05:56:11 242 Cells/uL F 0.0-700.0 Neutrophils/100 leukocytes in Blood by Automated count 2024-08-11 05:56:11 73.4 % F Lymphocytes/100 leukocytes in Blood by Automated count 2024-08-11 05:56:11 19.1 % F Monocytes/100 leukocytes in Blood by Automated count 2024-08-11 05:56:11 4.1 % F Medication Description Draw Date Result/Unit Status Ref Range Result Comments [facility] NORMALIZED RATIO 2024-09-21 21:46:20 1.5 Calc F 0.9-1.1 [facility] NORMALIZED RATIO 2024-09-14 19:15:22 1.9 Calc F 0.9-1.1 INTNL NORMALIZED RATIO 2024-09-07 20:58:17 1.3 Calc F 0.9-1.1 INTNL NORMALIZED RATIO 2024-09-02 15:43:17 1.5 Calc F 0.9-1.1 INTNL NORMALIZED RATIO 2024-08-31 14:40:50 F Recollect - Ship ping temp out of range [facility] NORMALIZED RATIO 2024-08-24 21:00:16 1.9 Calc F 0.9-1.1 [facility] NORMALIZED RATIO 2024-08-17 18:03:11 1.2 Calc F 0.9-1.1 INT[facility] NORMALIZED RATIO 2024-08-10 20:48:11 1.2 Calc F 0.9-1.1 INT[facility] NORMALIZED RATIO 2024-08-10 04:59:59 1.1 Calc F 0.9-1.1 INT[facility] NORMALIZED RATIO 2024-08-04 03:27:54 8 Calc F 0.9-1.1 [facility] NORMALIZED RATIO 2024-08-01 07:23:39 F Canceled - Speci men not received 5 days past draw date [facility] NORMALIZED RATIO 2024-07-29 16:01:50 F INR TARGET RANGE SSTANDARD DOSE 2.0 - 3.0TREATMENT OF VENOUS THROMBOSISTREATMENT OF PULMONARY EMBOLUSPROPHYLAXIS AGAINST VENOUS THROMBOSISOR SYSTEMIC EMBOLIZATIONHIGH DOSE 2.5 - 3.5HIGH-RISK PATIENTS WITH MECHANICALHEART VALVESPATIENTS WITH RECURRENT THROMBOEMBOLIWHILE ON STANDARD DOSE THERAPY.,RECOLLECT - OUTDATED SPECIMEN [facility] NORMALIZED RATIO 2024-07-20 18:55:08 F Recollect - Fabián tity not sufficient [facility] NORMALIZED RATIO 2024-07-10 20:45:53 4.9 Calc F 0.9-1.1 [facility] NORMALIZED RATIO 2024-06-29 20:59:23 2 Calc F 0.9-1.1 INT[facility] NORMALIZED RATIO [facility] NORMALIZED RATIO MineralBone Disorder Description Draw Date Result/Unit Status Ref Range Result Comments CA CORRECTED 2024-09-15 01:23:59 8.6 mg/dL F Calcium [Mass/volume] in Serum or Plasma 2024-09-15 01:09:17 8.4 mg/dL F 8.7-10.4 Alkaline phosphatase [Enzymatic activity/volume] in Serum or Plasma 2024-09-14 17:19:15 71 U/L F 46.0-116.0 CA CORRECTED 2024-09-03 02:32:36 7.8 mg/dL F CA/PHOS PRODUCT 2024-09-03 02:30:54 46.2 Calc F 21.0-53.0 CA*PO4 CORRCTD 2024-09-03 02:30:54 46.7 Calc F 21.0-53.0 Calcium [Mass/volume] in Serum or Plasma 2024-09-03 02:16:25 7.7 mg/dL F 8.7-10.4 Phosphate [Mass/volume] in Serum or Plasma 2024-09-02 17:23:23 6 mg/dL F 2.4-5.1 Parathyrin.intact [Mass/volume] in Serum or Plasma 2024-09-02 16:59:19 412 pg/mL F 18.0-80.0 Parathyrin.intact [Mass/volume] in Serum or Plasma 2024-08-31 14:46:34 F Recollect - Shipping temp out of range CA/PHOS PRODUCT 2024-08-31 14:42:05 F Recollect - Shipping temp out of range,Unable to Calculate. CA*PO4 CORRCTD 2024-08-31 14:42:05 F Unable to Calculate.,Recollec t - Shipping temp out of range Calcium [Mass/volume] in Serum or Plasma 2024-08-31 14:40:50 F Recollect - Shipping temp out of range Phosphate [Mass/volume] in Serum or Plasma 2024-08-31 14:40:50 F Recollect - Shipping temp out of range CA CORRECTED 2024-08-11 06:10:31 8.4 mg/dL F Calcium [Mass/volume] in Serum or Plasma 2024-08-11 05:56:40 8.3 mg/dL F 8.7-10.4 Alkaline phosphatase [Enzymatic activity/volume] in Serum or Plasma 2024-08-11 00:22:23 74 U/L F 46.0-116.0 CA CORRECTED 2024-07-28 23:59:22 8.2 mg/dL F CA/PHOS PRODUCT 2024-07-28 23:57:50 54.9 Calc F 21.0-53.0 CA*PO4 CORRCTD 2024-07-28 23:57:50 54.9 Calc F 21.0-53.0 Calcium [Mass/volume] in Serum or Plasma 2024-07-28 23:52:21 8.2 mg/dL F 8.7-10.4 Phosphate [Mass/volume] in Serum or Plasma 2024-07-28 16:30:14 6.7 mg/dL F 2.4-5.1 Parathyrin.intact [Mass/volume] in Serum or Plasma 2024-07-27 19:35:18 325 pg/mL F 18.0-80.0 CA CORRECTED 2024-07-21 04:17:42 7.8 mg/dL F Calcium [Mass/volume] in Serum or Plasma 2024-07-21 04:09:55 7.8 mg/dL F 8.7-10.4 Parathyrin.intact [Mass/volume] in Serum or Plasma 2024-07-10 16:37:07 456 pg/mL F 18.0-80.0 CA CORRECTED F Nutrition Description Draw Date Result/Unit Status Ref Range Result Comments Potassium [Moles/volume] in Serum or Plasma 2024-09-15 01:09:17 4.7 mEq/L F 3.5-5.5 A/G RATIO 2024-09-14 17:20:14 1.2 Calc F 1.0-2.5 GLOBULIN 2024-09-14 17:20:14 3.1 g/dL F 0.9-5.0 Albumin [Mass/volume] in Serum or Plasma by Bromocresol green (BCG) dye binding method 2024-09-14 17:19:15 3.7 g/dL F 3.4-4.8 Bicarbonate [Moles/volume] in Serum or Plasma 2024-09-14 17:19:15 20 mEq/L F 20.0-31.0 Glucose [Mass/volume] in Serum or Plasma 2024-09-14 17:19:15 101 mg/dL F 70.0-99.0 Lactate dehydrogenase [Enzymatic activity/volume] in Serum or Plasma 2024-09-14 17:19:15 257 U/L F 120.0-246.0 Protein [Mass/volume] in Serum or Plasma 2024-09-14 17:19:15 6.8 g/dL F 5.7-8.2 Potassium [Moles/volume] in Serum or Plasma 2024-08-11 05:56:40 4.8 mEq/L F 3.5-5.5 A/G RATIO 2024-08-11 00:52:08 1.1 Calc F 1.0-2.5 GLOBULIN 2024-08-11 00:52:08 3.5 g/dL F 0.9-5.0 Albumin [Mass/volume] in Serum or Plasma by Bromocresol green (BCG) dye binding method 2024-08-11 00:22:23 3.9 g/dL F 3.4-4.8 Bicarbonate [Moles/volume] in Serum or Plasma 2024-08-11 00:22:23 23 mEq/L F 20.0-31.0 Glucose [Mass/volume] in Serum or Plasma 2024-08-11 00:22:23 96 mg/dL F 70.0-99.0 Lactate dehydrogenase [Enzymatic activity/volume] in Serum or Plasma 2024-08-11 00:22:23 214 U/L F 120.0-246.0 Protein [Mass/volume] in Serum or Plasma 2024-08-11 00:22:23 7.4 g/dL F 5.7-8.2 Encounters No encounter information to report Immunizations Ordered Immunization Name Filled Immunization Name Date Status Comments Refusal Reason Hep B, adult 2024-06-14 14:20:12 Hep B, adult 2024-05-10 14:21:20 Hep B, adult 2024-04-12 12:47:18 Pneumococcal conjugate PCV20, polysaccharide [id number] conjugate, adjuvant, PF 2024-04-07 15:41:19 TST-PPD intradermal 2023-07-28 19:41:32 TST-PPD intradermal 2023-07-21 21:14:41 Plan of Treatment Planned Activity Provider Planned Date Details Commen ts Diagnostic Test Pending Carrington Perrin 2023-07-20 05:00:00 Hemoglobin [Mass/volume] in Blood [code = 718-7] Diagnostic Test Pending Carrington Perrin 2023-07-19 05:00:00 Parathyrin.intact [Mass/volume] in Serum or Plasma [code = 2731-8] Diagnostic Test Pending Carrington Toright 2023-07-16 13:41:38 25-Hydroxyvitamin D3+25-Hydroxyvitamin D2 [Mass/volume] in Serum or Plasma [code = 65560-7] Diagnostic Test Pending Carrington Toright 2023-08-06 10:17:03 Alanine aminotransferase [Enzymatic activity/volume] in Serum or Plasma [code = 1742-6] Diagnostic Test Pending Carrington Aleks Toright 2023-07-16 13:40:58 Cobalamin (Vitamin B12) [Mass/volume] in Serum or Plasma [code = 2132-9] Diagnostic Test Pending Carrington Aleks Toright 2023-07-16 13:39:33 Hemoglobin A1c/Hemoglobin.total in Blood [code = 4548-4] Diagnostic Test Pending Carrington Aleks Toright 2023-07-16 13:40:37 Folate [Mass/volume] in Serum or Plasma [code = 2284-8] Diagnostic Test Pending Carrington Aleks Toright 2023-07-16 13:38:44 Glucose [Mass/volume] in Serum or Plasma [code = 2345-7] Diagnostic Test Pending Carrington Toright 2023-10-19 06:24:48 Ferritin [Mass/volume] in Serum or Plasma [code = 2276-4] Diagnostic Test Pending Carrington Aleks Toright 2023-07-16 13:39:56 Potassium [Moles/volume] in Serum or Plasma [code = 2823-3] Diagnostic Test Pending Carrington Aleks Toright 2023-07-16 13:31:40 Creatinine [Mass/volume] in Serum or Plasma [code = 2160-0] Diagnostic Test Pending Carrington Aleks Toright 2023-07-16 13:34:37 Sodium [Moles/volume] in Serum or Plasma [code = 2951-2] Diagnostic Test [facility] 10:57:43 In-Center Hemodialysis Treatment [code = VAX379] [facility] Diet Calorie 25 kcal/kg Fluid Value 1800 mL/d Phosphorus Value 1000 mg/d Potassium Value 2500 mg/d Protein Value 1.2 gm/kg Sodium Value 1800 mg/d Calculated Weight 70.5 kg MedicationRobert Aleks Perrin 2024-10-11 05:00:00Engerix-B [code = 63023]
[2024-09-25 15:32] VITALS: BP 136/79; PULSE 99; RESP 20; TEMP 36.4; O2SAT 95; BMI 48.7
--- NOTE | 2024-09-25 16:24 | ED.FEVER ---
HPI - Fever General Chief Complaint: Fever Stated Complaint: fever due to infection Time Seen by Provider: 09/25/24 15:52 History of Present Illness HPI Narrative: Patient is a 48-year-old woman who has been on dialysis for the last year. She had a new port placed in the right subclavian location 2 days ago. Subjective fevers at home but no pain or drainage from the puncture site. She dialyzed yesterday without any difficulty and dialyze again in 2 days. She has had no chest pain no shortness a breath no nausea no vomiting no cough no sputum production no change in her bowel or bladder. She has had no other redness or discomfort. Related Data Home Medications ?Medication ?Instructions ?Recorded ?Confirmed carvedilol 12.5 mg tablet 12.5 mg PO BID 08/28/23 04/06/24 amlodipine 5 mg tablet 5 mg PO DAILY 11/06/23 04/06/24 clobetasol 0.05 % topical cream topical PRN 11/06/23 04/06/24 vitamin B complex-vitamin C-folic 1 tab PO DAILY 11/06/23 04/06/24 acid 0.8 mg tablet (Celine-Wally) Previous Rx's ?Medication ?Instructions ?Recorded prednisone 20 mg tablet 20 mg PO QDAY #7 tabs 04/06/24 Allergies Allergy/AdvReac Type Severity Reaction Status Date / Time No Known Drug Allergies Allergy Verified 04/06/24 08:03 Review of Systems Status of ROS Reports: 10 or more systems reviewed and unremarkable except as noted in History and below [facility] Medical History Infection of bloodstream concurrent with and due to presence of tunneled hemodialysis catheter ?T82.7XXA - Infection and inflammatory reaction due to other cardiac and vascular devices, implants and grafts, initial encounter (ICD-10) Surgical History History of umbilical hernia repair (09/26/03) ?Z98.890 - Other specified postprocedural states (ICD-10) ?Z87.19 - Personal history of other diseases of the digestive system (ICD-10) History of tubal ligation (~2002) ?Z98.51 - Tubal ligation status (ICD-10) History of cholecystectomy (04/19/10) ?Z90.49 - Acquired absence of other specified parts of digestive tract (ICD-10) Family History Mother Stroke Diabetes Myocardial infarction, Onset Age: 55 Father Diabetes Brain tumor Brother Diabetes High blood pressure Sister Diabetes High blood pressure Social History What is your current living situation?: I presently have a place to live Problems where you live: declined to answer Problems where you live details: none In the past 12 months, utilities in danger of being shut off: yes In past 12 months, lack of transportation kept you from medical appts, meetings, work, or getting things needed for daily living: no In the past 12 mos, have been you worried that your food would run out before you had money to buy more?: sometimes true In the past 12 mos, the food you bought just didn't last and you didn't have money to buy more?: sometimes true Highest level of school completed/degree received: 9th grade Smoking Status: Never smoker Do you use any of these nicotine containing products: None Second hand tobacco smoke exposure: No How often do you have a drink containing alcohol: never AUDIT-C Alcohol total score: 0 Non-prescribed substance use: denies use Caffeine: Yes (coffee) How often does anyone, including family, friends and others, physically hurt you: never How often does anyone, including family, friends and others, insult or talk down to you: never How often does anyone, including family, friends and others, threaten you with harm: never How often does anyone, including family, friends and others, scream or curse at you: never service: No Health Related Social Needs: food insecurity (Z59.41) Exam Narrative Exam Narrative: EXAM GENERAL: Patient appears comfortable and well. EYES: No scleral icterus. LYMPH: No supraclavicular or cervical lymphadenopathy. SKIN: Visible skin seen during exam normal or with benign process only. EXT: No dependent lower extremity pedal edema. HEART: Regular rate and rhythm with no murmurs, rubs, or gallops. LUNGS: Clear to auscultation bilaterally with no crackles or wheezes. ABD: Soft, non tender, non distended. PSYCH: Good eye contact, speech is not pressured. Catheter noted right the anterior chest no obvious abnormalities. Const Vital Signs, click to edit/add: Vital Signs - 24 hr 09/25/24 15:32 Temperature 97.6 F Pulse Rate [Right Pulse Oximeter] 99 Respiratory Rate 20 Blood Pressure [Right Upper Arm] 136/79 Pulse Oximetry 95 Oxygen Delivery Method Room Air Course Course ED Course: CBC and blood cultures drawn. Vital Signs Vital signs: Initial Vital Signs Temperature 97.6 F 09/25/24 15:32 Temperature Source Temporal Artery Scan 09/25/24 15:32 Pulse Rate 99 09/25/24 15:32 Respiratory Rate 20 09/25/24 15:32 Blood Pressure 136/79 09/25/24 15:32 Blood Pressure Mean 98 09/25/24 15:32 Blood Pressure Position Sitting 09/25/24 15:32 Pulse Oximetry 95 09/25/24 15:32 Oxygen Delivery Method Room Air 09/25/24 15:32 Vital Signs Temperature 97.6 F 09/25/24 15:32 Pulse Rate 99 09/25/24 15:32 Respiratory Rate 20 09/25/24 15:32 Blood Pressure 136/79 09/25/24 15:32 Pulse Oximetry 95 09/25/24 15:32 Oxygen Delivery Method Room Air 09/25/24 15:32 Temperature 97.6 F 09/25/24 15:32 Pulse Rate 99 09/25/24 15:32 Respiratory Rate 20 09/25/24 15:32 Blood Pressure 136/79 09/25/24 15:32 Pulse Oximetry 95 09/25/24 15:32 Oxygen Delivery Method Room Air 09/25/24 15:32 MDM - Fever MDM Narrative Medical decision making narrative: Patient presents with subjective fever at home 2 days after having a new dialysis port placed. She has no measurable fever here and has a normal exam and vital signs. Her white blood cell count is normal. We did culture her blood at this time will give her 1 g Rocephin as a precaution and she can follow up with her dialysis unit in the next 36 hours for her dialysis run. She will report any further fever. Lab Data Labs: Lab Results 09/25/24 Range/Units 16:43 WBC 9.39 (4.50-11.00) K/uL RBC 3.07 L (4.00-5.20) m/uL Hgb 10.0 L (12.0-16.0) gm/dL Hct 29.9 L (33.0-51.0) % MCV 97 (80-100) fL MCH 33 (26-34) pg MCHC 33 (32-36) gm/dL RDW Coeff of William 13.3 (11.5-15.5) % Plt Count 149 (140-440) K/uL Neut % (Auto) 85.6 H (42.0-72.0) % Lymph % (Auto) 7.1 L (20-44) % [place] % (Auto) 5.9 (0.0-11.0) % Eos % (Auto) 0.9 (0.0-7.0) % Baso % (Auto) 0.2 (0.0-3.0) % Neut # (Auto) 8.00 H (1.7-7.0) K/uL Lymph # (Auto) 0.70 L (0.90-2.90) K/uL [place] # (Auto) 0.60 (0.00-0.90) K/UL Eos # (Auto) 0.08 (0.00-0.50) K/uL Baso # (Auto) 0.02 (0.00-0.30) K/uL Abs Immat Gran (auto) 0.03 (0.00-0.30) K/uL Imm/Tot Granulo (auto) 0.3 % Discharge Plan Discharge Clinical Impression: Fever Patient Disposition: Home, Self-Care Condition: Stable Instructions: Fever in Adults (ED) Additional Instructions: Continue current care Tylenol as directed for fever Rest Fluids Follow-up at next dialysis session. Activity Level: No Restrictions Discharge Diet: Regular Prescriptions: No Action Celine-Wally 0.8 mg tablet 1 tab PO DAILY amlodipine 5 mg tablet 5 mg PO DAILY clobetasol 0.05 % cream topical PRN prednisone 20 mg tablet 20 mg PO QDAY Qty: 7 0RF carvedilol 12.5 mg tablet 12.5 mg PO BID Follow Up/Referrals: Carrington Perrin JR, DO [Primary Care Provider, Nephrology] Stand Alone Forms: [employer] Info Instructions
[2024-09-25 17:06] LABS: Hematocrit 29.9 % (33.0-51.0); Hemoglobin* 10.0 gm/dL (12.0-16.0); Immature Granulocytes Abs Auto 0.03 K/uL (0.00-0.30); Immature Granulocytes Pct Auto 0.3 %; Mean Corpuscular HGB Conc 33 gm/dL (32-36); Mean Corpuscular Hemoglobin 33 pg (26-34); Mean Corpuscular Volume 97 fL (80-100); RDW Coefficient of Variation % 13.3 % (11.5-15.5); Red Blood Count 3.07 m/uL (4.00-5.20); White Blood Count* 9.39 K/uL (4.50-11.00)
[2024-09-25 17:18] LABS: Lymphocytes Absolute Auto 0.70 K/uL (0.90-2.90); Slide Review Reflex No
[2024-09-25] MEDS: cefTRIAXone 1 GM in 0.9 % SODIUM CHLORIDE Mini-bag 100 ML IVPB (17:43)
[2024-09-25 17:47] VITALS: BP 134/78; PULSE 79; RESP 18; TEMP 36.4; O2SAT 96
[2024-09-25 17:50] VITALS: BP 134/78; PULSE 79; RESP 18; TEMP 36.4; O2SAT 96
== END 2024-09-25 18:36 | disposition home or self-care (01) ==
PROVIDERS: Emergency Provider Internal Medicine; PCP Internal Medicine Nephrology
DX: R50.9 Fever, unspecified (principal)
CPT/HCPCS: 36415; 85025; 87040; 96365; 99283; J0696

== ENCOUNTER 2024-11-30 13:57 | Outpatient (CLI) | payer MEDICAID, SELFPAY ==
--- NOTE | 2024-11-30 14:00 | CRLHL7_ITS ---
For Patients: As a result of the Century Cures Act, medical imaging exams and procedure reports are released immediately into your electronic medical record. You may view this report before your referring provider. If you have questions, please contact your health care provider. INDICATION: Pulmonary nodule TECHNIQUE: CT chest without contrast. COMPARISON: 11/07/[address] FINDINGS: Lungs and pleura: Previously seen right apical lung nodule has resolved. Lungs are clear. Heart and vasculature: Heart size is normal. Thoracic aorta and pulmonary artery are normal in caliber.Right-sided dual-lumen central catheter. Lymph nodes/mediastinum: No mediastinal, hilar, or axillary adenopathy. Thyroid gland is normal. Chest wall: No masses. Upper abdomen: Cholecystectomy. Bones: Unremarkable for age. IMPRESSION: Previous right apical lung nodule has resolved. Normal chest CT. Please note that all CT scans at this facility use dose modulation, iterative reconstruction, and/or weight-based dosing when appropriate to reduce radiation dose to as low as reasonably achievable. Dictated by Agusto Mascorro MD @ 12/01/2024 3:50:04 PM (Electronically Signed)
== END 2024-11-30 13:58 | disposition home or self-care (01) ==
PROVIDERS: PCP Internal Medicine; Visit Provider Internal Medicine
DX: R91.1 Solitary pulmonary nodule (principal)
CPT/HCPCS: 71250; T1013